=== PATIENT | male | born 1955 | race Caucasian/White ===

== ENCOUNTER → 2016-05-09 | Outpatient (CLI) | payer OTHER ==
--- NOTE | 2016-05-09 15:15 | CT ---
EXAMINATION TYPE: CT angio chest DATE OF EXAM: 05/09/2016 2:56 PM COMPARISON: NONE HISTORY: Patient has no complaints at time of study. Preoperative CABG planning. Coronary artery dis ease per order. CT DLP: 462.6 mGycm Automated exposure control for dose reduction was used. CONTRAST: CTA scan of the thorax is performed with IV Contrast, patient injected with 100 mL of Omnipaque 350. 3D reconstructed images are created on an independent workstation and reviewed. MIP images are also c reated on CT scanner and reviewed. FINDINGS: LUNGS: An elevated left hemidiaphragm is present. There is left basilar atelectasis and/or scarring. There is mild underlying emphysematous change most pronounced in lung apices. Right lung is clear. No pleural effusion or pneumothorax is present bilaterally. Tracheobronchial tree is patent. MEDIASTINUM: There is satisfactory enhancement of the pulmonary artery and its branches, there is no CT evidence for pulmonary embolism. There are no greater than 1 cm hilar or mediastinal lymph nodes. No pericardial effusion is seen. Cardiomegaly is present. There is moderate left atrial and left v entricular dilatation. Post CABG changes with mediastinal clips and sternal wires is identified. Ther e is BENITEZ harvesting. Bypass from aorta to first diagonal branch is noted. There is moderate mixed pl aque in the thoracic aorta. No linear hypodensity to suggest dissection is seen. No greater than 3.5 cm aneurysm is identified. OTHER: There is moderate multilevel spurring in the spine. Liver is low dense suggesting fatty infil tration. Slight nodular thickening to left adrenal gland may reflect hyperplasia. IMPRESSION: 1. MILD EMPHYSEMATOUS CHANGE WITHOUT ACUTE PULMONARY PROCESS. 2. NO THORACIC AORTIC ANEURYSM OR DISSECTION. NO PULMONARY EMBOLISM. CARDIOMEGALY WITH MODERATE LEFT ATRIAL AND LEFT VENTRICULAR DILATATION IS NOTED.
== END | disposition home or self-care (01) ==
LOC: RADCTMAIN 14:17
PROVIDERS: ATTEND Thoracic Surgery (Cardiothoracic Vascular Surgery)
DX: J43.9 Emphysema, unspecified (principal); I51.7 Cardiomegaly; I25.10 Atherosclerotic heart disease of native coronary artery without angina pectoris
CPT/HCPCS: 71275; Q9967

== ENCOUNTER → 2016-05-09 | Outpatient (CLI) | payer OTHER ==
--- NOTE | 2016-05-09 14:43 | US ---
EXAMINATION TYPE: US carotid duplex BILAT DATE OF EXAM: 05/09/2016 1:19 PM COMPARISON: NONE CLINICAL HISTORY: US. Pre op cardiac surgery, bilateral endarterectomy 4 years ago EXAM MEASUREMENTS: RIGHT: Peak Systolic Velocity (PSV) cm/sec ----- Right CCA: 43.2 ----- Right ICA: 63.8 ----- Right ECA: 270.2 ICA/CCA ratio: 1.5 RIGHT: End Diastole cm/sec ----- Right CCA: 7.6 ----- Right ICA: 21.9 ----- Right ECA: 25.8 LEFT: Peak Systolic Velocity (PSV) cm/sec ----- Left CCA: 120.1 ----- Left ICA: 96.8 ----- Left ECA: 177.3 ICA/CCA ratio: 0.8 LEFT: End Diastole cm/sec ----- Left CCA: 23.5 ----- Left ICA: 33.8 ----- Left ECA: 23.1 VERTEBRALS (direction of flow): Right Vertebral: Antegrade Left Vertebral: Antegrade Impression: Mild to moderate plaque noted bilateral bifurcations. Increased velocities bilateral ECA' s, greater on right Criteria for Assigning % of Stenosis / Diameter reduction (Estimation based on the indirect measurements of the internal carotid artery velocities (ICA PSV). 1. Normal (no stenosis)=ICA PSV < 125 cm/s: ratio < 2.0: ICA EDV<40 cm/s. 2. Less than 50% stenosis=ICA PSV < 125 cm/s: ratio < 2.0: ICA EDV<40 cm/s. 3. 50 to 69% stenosis=ICA PSV of 125 to 230 cm/s: ration 2.0 ? 4.0: ICA EDV 40-100 cm/s. 4. Greater than 70% stenosis to near occlusion= ICA PSV > 230 cm/s: ratio > 4.0: ICA EDV > 100 cm/s. 5. Near occlusion= ICA PSV velocities may be low or undetectable: variable ratio and ICA EDV. 6. Total occlusion=unable to detect flow.
--- NOTE | 2016-05-11 11:02 | P.VSCSTY ---
Greater Saphenous Vein Mapping This is bilateral lower extremity greater saphenous vein mapping. Date of service 05/09/2016 Vein quality and ultrasound appearance: left leg has been harvested. Vein size groin right 8.8 x 9.6 groin left [ ] High thigh right 5.7 x 7.5 high thigh left [ ] Mid thigh right 5.0 x 6.4 mid thigh left [ ] Above-knee right 5.1 x 5.8 above- knee left [ ] Below knee right 4.5 x 5.2 below-knee left [] Mid calf right 3.3 x 4.3 mid calf left [] Ankle right to 0.4 x 2.8 ankle left [] Impression usable right leg greater saphenous vein. Become somewhat large as 1 gets towards the upper thigh..
--- NOTE | 2016-05-11 11:05 | P.ARTDOP ---
Arterial Doppler Bilateral radial artery studies: Doppler assessment shows no significant right to left or segmental pressure gradients. Digital plethysmography shows no significant pressure change with radial artery compression. Ultrasound imaging shows the right radial to range from 2 x 2.5-2.5 x 2.7 mm, left radial ranges between 2.8 x 3.6-3.3 x 3.4 mm Impression: Usable bilateral radial arteries. Size on the left is excellent and quite acceptable on the right
--- NOTE | 2016-05-13 16:47 | PN ---
DATE OF SERVICE: May 13, 2016. Patient is a 60-year-old gentleman who will be 61 tomorrow. He was seen by me in the office on April 28 for evaluation of recurrent coronary artery disease status post coronary artery bypass surgery [address] Crowder. He was sent for some preoperative work-up, which included an ultrasound of the carotids, which was essentially normal, and included CT of the chest which demonstrates a patent saphenous vein to the high lateral wall which is not evident on the cardiac catheterization, demonstrates good healing of the midline sternotomy with no evidence of severe underlying adhesive disease and demonstrates mild emphysema of the lungs. The patient has had a previous plication of the diaphragm but there is no obvious sequelae of this operation evident on the CT scan. The left diaphragm is slightly higher than the right. There is some degree of volume loss on the left chest. The patient underwent saphenous vein mapping showing patent saphenous vein on the right side, somewhat large in the thigh and small at the ankle but does appear to be usable. The patient underwent radial artery mapping, which shows patent radial arteries bilaterally which both have evidence of good collateral flow through the ulna, the left radial is larger and is a very appropriate conduit. The right would also be usable. I discussed with the patient that I feel very confident in offering him redo coronary bypass surgery as requested by Dr. Oneyda Emmanuel and discussed with him that we will use the left radial artery and some of the vein from the right lower extremity. Discussed with him that this is a redo sternotomy and the inherent risks associated with that. That I felt confident that we would be able to successfully perform the procedure with a minimum of risk. The patient would like to proceed. We will schedule him a week from Monday on May 23. This was agreeable with the patient and his . All of their questions were answered to the best of my ability and then left the office in good spirits ready to proceed with surgery next week. BART
== END | disposition home or self-care (01) ==
LOC: RADUSWWP 12:01
PROVIDERS: ATTEND Thoracic Surgery (Cardiothoracic Vascular Surgery)
DX: Z01.818 Encounter for other preprocedural examination (principal); I65.23 Occlusion and stenosis of bilateral carotid arteries; I25.10 Atherosclerotic heart disease of native coronary artery without angina pectoris
CPT/HCPCS: 93880; 93923; 93930; 93970

== ENCOUNTER → 2016-05-17 | Outpatient (CLI) | payer OTHER ==
--- NOTE | 2016-05-25 14:40 | P.ARTDOP ---
Arterial Doppler LOWER EXTREMITY ARTERIAL DOPPLER: DATE OF SERVICE: 05/17/2016 Reason for study: Pre-CABG. Doppler waveforms: Multiphasic bilaterally throughout. Pulse volume recording: Normal configuration. Pressure gradients: None. Ankle-brachial indices: Greater than 1 bilaterally. Toe pressures: 89 on the right, 84 on the left Impression: Normal study.
== END | disposition home or self-care (01) ==
LOC: RADUSWWP 13:39
PROVIDERS: ATTEND Thoracic Surgery (Cardiothoracic Vascular Surgery)
DX: Z01.810 Encounter for preprocedural cardiovascular examination (principal)
CPT/HCPCS: 93923

== ENCOUNTER → 2016-05-17 | Outpatient (CLI) | payer OTHER ==
[2016-05-17 12:36] LABS: EKG EKG PERFORMED
[2016-05-17 13:25] LABS: Appearance,Urine Clear (Clear); Bilirubin,Urine Negative (Negative); Glucose,Urine (UA) Negative (Negative); Ketones,Urine Negative (Negative); Leukocyte Esterase,Urine Negative (Negative); Mucus,Urine Rare /hpf; Nitrite,Urine Negative (Negative); Particle Count 859; Protein,Urine Negative (Negative); RBC,Urine 5 /hpf (0-5); Specific Gravity,Urine 1.012 (1.001-1.035); UA Billing (MACRO vs. MICRO) MICRO; Uric Acid Crystals,Urine Occasional /hpf; Urobilinogen,Urine <2.0 mg/dL (<2.0); WBC,Urine 2 /hpf (0-5)
[2016-05-17 14:08] LABS: CH 31.3; CHCM 34.8; HCT 42.3 % (39.0-53.0); HDW 3.49; HGB 14.8 gm/dL (13.0-17.5); MCH 31.6 pg (25.0-35.0); MCHC 34.9 g/dL (31.0-37.0); MCV 90.6 fL (80.0-100.0); Mean Platelet Volume 7.5; Poikilocytosis Slight; RBC 4.67 m/uL (4.30-5.90); RDW 14.7 % (11.5-15.5); WBC 7.1 k/uL (3.8-10.6)
[2016-05-17 14:09] LABS: Partial Thromboplastin Time 22.4 sec (22.0-30.0); Prothrombin Time 10.5 sec (9.0-12.0)
[2016-05-17 14:18] LABS: ALT 69 U/L (21-72); AST 41 U/L (17-59); Alkaline Phosphatase 71 U/L (38-126); Anion Gap 14 mmol/L; Blood Urea Nitrogen 22 mg/dL (9-20); Calcium 9.8 mg/dL (8.4-10.2); Carbon Dioxide 28 mmol/L (22-30); Chloride 101 mmol/L (98-107); Cholesterol 191 mg/dL (<200); Glucose 165 mg/dL (74-99); HDL Cholesterol 34 mg/dL (40-60); Magnesium 1.9 mg/dL (1.6-2.3); Non-African American GFR(MDRD) >60 (>60 ml/min/1.73 sqM); Potassium 4.8 mmol/L (3.5-5.1); Sodium 143 mmol/L (137-145); Total Bilirubin 0.8 mg/dL (0.2-1.3); Triglycerides 239 mg/dL (<150)
--- NOTE | 2016-05-17 14:46 | XR ---
EXAMINATION TYPE: XR chest 2V DATE OF EXAM: 05/17/2016 2:42 PM COMPARISON: 11/15/2012 HISTORY: Shortness of breath TECHNIQUE: Frontal and lateral views of the chest are obtained. FINDINGS: Scattered senescent parenchymal changes noted. No evidence for infiltrate. No evidence for atelectasis. Heart size is stable. Mediastinal structures are stable and grossly unremarkable. No evidence for hilar prominence. Degenerative changes dorsal spine. IMPRESSION: 1. No evidence for acute pulmonary disease.
[2016-05-17 14:47] LABS: Hepatitis B Surface Ag Index 0.06
[2016-05-17 14:53] LABS: Hepatitis B Core IgM Index 0.03
[2016-05-17 15:05] LABS: Hepatitis C Virus IgG Index 0.04
[2016-05-17 15:06] LABS: Hepatitis C Virus IgG Ab Negative (Negative)
== END | disposition home or self-care (01) ==
LOC: LABPAT 12:21
PROVIDERS: ATTEND Thoracic Surgery (Cardiothoracic Vascular Surgery)
DX: Z01.818 Encounter for other preprocedural examination (principal); Z01.810 Encounter for preprocedural cardiovascular examination
CPT/HCPCS: 71020; 80053; 80061; 80074; 81001; 83036; 83735; 83880; 84443; 84484; 85027; 85610; 85730; 87070; 87086; 93005; 94150

== ENCOUNTER → 2016-05-31 | Outpatient (CLI) | payer OTHER ==
--- NOTE | 2016-05-31 10:08 | XR ---
EXAMINATION TYPE: XR chest 2V DATE OF EXAM: 05/31/2016 10:01 AM COMPARISON: 05/17/2016 INDICATION: Presurgical evaluation TECHNIQUE: Frontal and lateral views of the chest are obtained. FINDINGS: The heart size is normal. The pulmonary vasculature is normal. Linear opacities at the left base. Correlate for atelectasis. IMPRESSION: 1. Mild improving plate atelectasis left base
[2016-05-31 10:19] LABS: CH 31.3; CHCM 34.7; HCT 41.7 % (39.0-53.0); HDW 3.46; HGB 14.2 gm/dL (13.0-17.5); MCH 30.9 pg (25.0-35.0); Mean Platelet Volume 8.1; Poikilocytosis Slight; RBC 4.58 m/uL (4.30-5.90); RDW 14.8 % (11.5-15.5); WBC 7.4 k/uL (3.8-10.6)
[2016-05-31 10:39] LABS: Partial Thromboplastin Time 22.1 sec (22.0-30.0)
[2016-05-31 10:47] LABS: ALT 65 U/L (21-72); AST 36 U/L (17-59); Alkaline Phosphatase 89 U/L (38-126); Anion Gap 14 mmol/L; Blood Urea Nitrogen 19 mg/dL (9-20); Calcium 9.4 mg/dL (8.4-10.2); Carbon Dioxide 28 mmol/L (22-30); Chloride 101 mmol/L (98-107); Cholesterol 188 mg/dL (<200); Glucose 170 mg/dL (74-99); HDL Cholesterol 35 mg/dL (40-60); Magnesium 1.9 mg/dL (1.6-2.3); Non-African American GFR(MDRD) >60 (>60 ml/min/1.73 sqM); Potassium 4.8 mmol/L (3.5-5.1); Sodium 143 mmol/L (137-145); Total Bilirubin 0.7 mg/dL (0.2-1.3); Total Protein 8.1 g/dL (6.3-8.2); Triglycerides 321 mg/dL (<150)
[2016-05-31 11:04] LABS: Appearance,Urine Cloudy (Clear); Bilirubin,Urine Negative (Negative); Glucose,Urine (UA) Negative (Negative); Hepatitis B Surface Ag Index 0.08; Ketones,Urine Negative (Negative); Leukocyte Esterase,Urine Negative (Negative); Mucus,Urine Rare /hpf; Nitrite,Urine Negative (Negative); PH, Urine 5.5 (5.0-8.0); Particle Count 4937; Protein,Urine Trace (Negative); RBC,Urine 88 /hpf (0-5); Specific Gravity,Urine 1.016 (1.001-1.035); UA Billing (MACRO vs. MICRO) MICRO; Urobilinogen,Urine <2.0 mg/dL (<2.0); WBC,Urine 6 /hpf (0-5)
[2016-05-31 11:10] LABS: Hepatitis B Core IgM Index 0.05
[2016-05-31 11:21] LABS: Hepatitis C Virus IgG Index 0.05
[2016-05-31 11:22] LABS: Hepatitis C Virus IgG Ab Negative (Negative)
[2016-05-31 12:40] LABS: Hemoglobin A1C 6.1 % (4.2-6.1)
== END | disposition home or self-care (01) ==
LOC: LABPAT 09:16
PROVIDERS: ATTEND Thoracic Surgery (Cardiothoracic Vascular Surgery)
DX: Z01.810 Encounter for preprocedural cardiovascular examination (principal); J98.11 Atelectasis
CPT/HCPCS: 71020; 80053; 80061; 80074; 81001; 83036; 83735; 83880; 84443; 84484; 85027; 85610; 85730; 87086

== ENCOUNTER 2016-06-06 05:46 | Inpatient (IN) | payer OTHER ==
--- NOTE | 2016-05-31 09:41 | P.PN ---
Progress Note - Text Walk test completed: 1) 2.37 seconds,2) 2.86 seconds,3) 3.08 seconds.
[~2016-06-06 05:46] MED LIST: ALBUMIN HUMAN 25% 50 ML IV ONE; ALBUMIN HUMAN 5% 500 ML IVPB ONE; AMINOCAPROIC ACID 250 MG/ML 20 ML VIAL IV ONE; AMINOCAPROIC ACID 5,000 MG in DEXTROSE 5% IN WATER 50 ML IV ONE; ASPIRIN 325 MG TAB PO ONE; ATORVASTATIN 10 MG TAB PO ONE; CALCIUM CHLORIDE 100 MG/ML 10 ML SYRINGE IV ONE; CARDIOPLEGIC SOLN (K+ 16 MEQ/L 1,000 ML with SODIUM BICARB (1 MEQ/ML) 20 ML, LIDOCAINE ... PERFUSION ONE; CHLORHEXIDINE GLUCONATE 15 ML CUP MUCOUS MEM ONE; CLEVIDIPINE BUTYRATE 25 MG in EMPTY BAG 1 BAG IV ONE; HEPARIN SODIUM 1,000 UNIT/ML VIAL IV ONE; HEPARIN SODIUM,PORCINE 5,000 UNIT in SODIUM CHLORIDE 0.9% 500 ML IV ONE; INSULIN REGULAR 100 UNIT in SODIUM CHLORIDE 0.9% 100 ML IV ONE; LACTATED RINGERS 1,000 ML IV ONE; MAGNESIUM SULFATE MG 500 MG/ML VIAL IV ONE; MANNITOL 25% 12.5 GM/50 ML VIAL IV ONE; METOPROLOL TARTRATE 12.5 MG TAB PO ONE; NITROGLYCERIN-D5W PMX 25 MG/250 ML BTL IV ONE; NITROGLYCERIN-D5W PMX 50 MG in DEXTROSE/WATER 1 250ML.BAG IV ONE; NOREPINEPHRINE 4 MG in SODIUM CHLORIDE 0.9% 250 ML IV ONE; PAPAVERINE 360 MG in SODIUM CHLORIDE 0.9% 90 ML IV ONE; PHENYLEPHRINE 40 MG in SODIUM CHLORIDE 0.9% 250 ML IV ONE; PHENYLEPHRINE-0.9% NACL SYG 1 MG/10 ML SYRINGE IV ONE; PROPOFOL 50 ML IV ONE; PROTAMINE SULFATE 10 MG/ML 25 ML VIAL IV ONE; PROTAMINE SULFATE 250 MG in EMPTY BAG 1 BAG IV ONE; SODIUM BICARB 8.4% 50 ML SYR (1 MEQ/ML) IV ONE; SODIUM CHLORIDE 0.9% 1,000 ML IV ONE; ceFAZolin 1,000 MG in SODIUM CHLORIDE 0.9% IRRIGATIO 1,000 ML IRRIGATION ONE; ceFAZolin 2,000 MG in SODIUM CHLORIDE 0.9% 30 ML IVPB ONE
[2016-06-06] MEDS ORDERED: fentaNYL (PF) 50 MCG/ML 2 ML AMP ONE (08:14)
[2016-06-06] MEDS ORDERED: PROPOFOL 10 MG/ML 20 ML VIAL IV ONE (08:14)
[2016-06-06] MEDS ORDERED: MORPHINE SULFATE 10 MG/ML SYRINGE ONE (08:14)
[2016-06-06] MEDS ORDERED: ePHEDrine 50 MG/ML 1 ML AMP ONE (08:14)
[2016-06-06] MEDS ORDERED: fentaNYL (PF) 50 MCG/ML 50 ML VIAL ONE (08:14)
[2016-06-06] MEDS ORDERED: HEPARIN SODIUM,PORCINE 10,000 UNIT/ML 1 ML VIAL ONE (08:14)
[2016-06-06] MEDS ORDERED: PROTAMINE SULFATE 10 MG/ML 25 ML VIAL IV ONE (08:14)
[2016-06-06] MEDS ORDERED: CALCIUM CHLORIDE 100 MG/ML 10 ML SYRINGE ONE (08:14)
[2016-06-06] MEDS ORDERED: SODIUM CHLORIDE 0.9% IRRIG 1,000 ML BTL IRRIGATION ONE (08:14)
[2016-06-06] MEDS ORDERED: HEPARIN SODIUM 1,000 UNIT/ML VIAL ONE (08:14)
[2016-06-06] MEDS ORDERED: PHENYLEPHRINE-0.9% NACL SYG 1 MG/10 ML SYRINGE ONE (08:14)
[2016-06-06] MEDS ORDERED: VECURONIUM 10 MG VIAL IV ONE (08:14)
[2016-06-06] MEDS ORDERED: ELECTROLYTE-R (PH 7.4) 1,000 ML IV.SOLN IV ONE (08:14)
[2016-06-06] MEDS ORDERED: SUCCINYLCHOLINE CHLORIDE 100 MG/5 ML SYR IV ONE (08:14)
[2016-06-06] MEDS ORDERED: MIDAZOLAM 2 MG/2 ML VIAL ONE (08:14)
[2016-06-06] MEDS ORDERED: DILTIAZEM 125 MG in SODIUM CHLORIDE 0.9% 100 ML IV SCH (09:00)
[2016-06-06 09:18] LABS: Glucose,Whole Blood 116 mg/dL (75-99)
[2016-06-06 11:20] LABS: Glucose,Whole Blood 179 mg/dL (75-99)
[2016-06-06 12:04] LABS: Glucose,Whole Blood 172 mg/dL (75-99)
[2016-06-06 12:50] LABS: Glucose,Whole Blood 183 mg/dL (75-99)
[2016-06-06 13:58] LABS: Glucose,Whole Blood 194 mg/dL (75-99)
[2016-06-06] MEDS ORDERED: BENZOCAINE/MENTHOL LOZENG 1 EACH LOZENGE MUCOUS MEM PRN (14:14)
[2016-06-06] MEDS ORDERED: Magnesium Replacement Protocol 1 EACH MISC MISCELLANE PRN (14:14)
[2016-06-06] MEDS ORDERED: CLEVIDIPINE BUTYRATE 25 MG in EMPTY BAG 1 BAG IV SCH (14:14)
[2016-06-06] MEDS ORDERED: NOREPINEPHRINE 4 MG in SODIUM CHLORIDE 0.9% 250 ML IV SCH (14:14)
[2016-06-06] MEDS ORDERED: CALCIUM GLUCONATE 2,000 MG in SODIUM CHLORIDE 0.9% 100 ML IVPB ONE (14:14)
[2016-06-06] MEDS ORDERED: ONDANSETRON 4 MG/2 ML VIAL IVP PRN (14:14)
[2016-06-06] MEDS ORDERED: NITROGLYCERIN-D5W PMX 50 MG in DEXTROSE/WATER 1 250ML.BAG IV SCH (14:14)
[2016-06-06] MEDS ORDERED: Potassium Replacement Protocol 1 EACH MISC MISCELLANE PRN (14:14)
[2016-06-06] MEDS ORDERED: Phosphorus Replacement Protoco 1 EACH MISC MISCELLANE PRN (14:14)
--- NOTE | 2016-06-06 15:02 | P.OP ---
Date of Procedure: 06/06/16 Preoperative Diagnosis: Coronary artery disease, both the lives and autologous grafts Postoperative Diagnosis: Coronary artery disease, both autologous and [place] grafts. Procedure(s) Performed: Redo coronary artery bypass grafting 2 with left radial artery harvest and left radial artery to obtuse marginal coronary artery and endovascular vein harvest from the left greater saphenous vein with bypass of the posterior lateral branch Anesthesia: KARTHIKEYAN Surgeon: Linus Harmon Estimated Blood Loss (ml): 200 IV fluids (ml): 2,000 Urine output (ml): 500 Pathology: none sent (Old saphenous vein graft) Condition: stable Disposition: ICU Indications for Procedure: Patient is a 61-year-old male with previous bypass grafting 3-1/2 years ago presented with anginal symptomatology. Catheterization demonstrated occluded saphenous vein grafts with a patent BENITEZ to the LAD. The right coronary artery was without significant stenosis. There was tight ostial stenosis in both the obtuse marginal which was a large vessel and the distal circumflex the circumflex coronary artery which was a smaller vessel. Redo coronary bypass grafting was recommended by Dr. Melo and Dr. YG Emmanuel. Elective surgery was scheduled. Operative Findings: There were diffuse dense adhesions present within the pericardial space. The vein graft to the right coronary artery was small and without a lumen and looked like it had never flowed. The vein graft to the obtuse marginal was large and appeared to have some flow within it. The left ventricle itself was markedly dilated with a ejection fraction of around 35%. Good conduits were obtained. Grafting proceeded well. Description of Procedure: Patient was brought to the operating room placed supine on the operating table and anesthetized and intubated. The anterior torso lower extremities and left upper extremity were sterilely prepped and draped. A left femoral arterial line was placed as anesthesia been unable to place a right radial or brachial line. Simultaneously, endovascular vein harvest was performed from the left thigh using the endovascular harvest techniques the left greater saphenous was harvested from knee to groin. The left radial artery was harvested endoscopically from the left forearm. Once this harvest was completed the arm was dressed and tucked at the side. The old sternal excision was excised and the incision carried down to the sternum. Total wires were identified and cut. The redo saw was used to divide the sternum in the midline. Following this the sternal wires were removed. Careful dissection was carried underneath the leaves of the sternum first on the right side. Right pleural space was opened widely and was free of adhesions. Owing this we very carefully divided the heart from the sternum on the left side. The adhesions here were very dense and difficult. Left pleural space was entered but was fairly adherent. The majority of the pleural adhesions were not taken down. Rule tract retractor was used to expose the left side of the chest little better. He old RUPA graft was identified and dissected out. We dissected as far laterally as we could using the Rultract then placed a standard sternal retractor. We were able to dissect out the inferior wall of the heart the right atrium and the aorta including identifying 2 old vein grafts one of which appeared to be patent to the left and the other appeared to be chronically occluded to the right side. In trying to dissected out the left ventricle laterally, we had problems as the patient really did not tolerate his heart being lifted at all. It was decided the only way we would complete the case would be off pump heparinized the patient and cannulated for cardiopulmonary bypass. An 8 mm soft flow cannula was placed in the distal ascending aorta superior to the previous aortic cannulation site. Two-stage venous cannula was placed through the right atrium into the inferior vena cava. Antegrade and retro-grade cardioplegia lines were placed in standard fashion. Conduits were inspected and noted to be excellent. At this point we went on bypass. With the heart still beating we completed the dissection of the left ventricle posteriorly and inferiorly. We now identified the first obtuse marginal which had a vein graft running to it this was a 2 mm vessel of good quality and it was grafted beyond the previous anastomosis. We also identified the terminal circumflex on the posterior lateral wall of the heart. A 1.25 mm vessel of good quality. Was decided to put the left radial artery to the obtuse marginal and the saphenous vein graft to the posterior lateral the aorta was now crossclamped and the heart arrested with cold crystalloid antegrade cardioplegia. The obtuse marginal was exposed and opened easily accepted a 2 mm probe distally. After radial artery was anastomosed end-to-side fashion with running 7-0 Prolene. Ablation the anastomosis it was probed distally and noted to be patent. She was tied with good result and hemostasis and it was flushed with cold blood cardioplegia which fluid flowed very easily without any leaks. The radial artery was of more than adequate length to reach the ascending aorta. Next we exposed the inferior wall of the heart and the posterior lateral branch. This was opened and the saphenous vein anastomosed in end-to-side fashion with running 7-0 Prolene. It accepted a 1 mm probe both proximally and distally both before and after the anastomosis. On completion the anastomosis was flushed with cold blood cardioplegia. This flowed well although not as exuberantly as the first graft.'s was felt to do be due to outflow limitations due to the size of the vessel. The vein graft was of more than adequate length to reach the ascending aorta was cut to appropriate length. A dose of retrograde cardioplegia was now given. Small aortotomy was made in the ascending aorta just above the previous obtuse marginal graft and this was enlarged with a 40 punch. Proximal anastomosis for the radial artery was placed here with running 6-0 Prolene suture. Was now fairly limited space on the ascending aorta and it was decided to take off the old vein graft to the right. This was done in the proximal portion of the vein graft was sent for pathology a clip was applied to the vein graft for distally. The resultant hole in the ascending aorta was used for the proximal anastomosis of the right coronary graft. This was performed with running 6-0 Prolene suture. Completion occlusion of the proximal anastomosis a she was placed in Trendelenburg both of the new grafts were occluded with bulldog clamps and the bulldog clamp was removed from the left internal mammary artery graft. Cross-clamp was now removed, the new grafts were de-aired with needle holes. Atrial and ventricular pacing wires were placed and the patient was paced. The ventricle recovered slowly. Was decided to lobe with some Primacor and starts we fed through consulted in better heart function on the MARY. Good hemostasis was noted throughout. Retrograde cardioplegia line was removed. Heart was de-aired under MARY guidance and the antegrade cardioplegia line was removed. After appropriate rewarming the patient was weaned from cardiopulmonary bypass. Heparin was reversed with protamine and the patient was decannulated in standard fashion. The pump was returned to the patient. Patient remained hemodynamically stable. Hemostasis was obtained throughout. Bilateral pleural spaces were drained with 32-Mong[place]ian chest tubes in the mediastinum with a 36-[place]ian chest tube. Sternum was then closed with 8 sternal wires. We did irrigate the chest with antibiotic solution prior to closure. The sternum closed, the fascia was closed with 0 Ethibond the subcutaneous subcu layers with layers of Vicryl suture. Dry sterile dressings were applied and the patient was transferred to ICU in stable condition.
[2016-06-06 15:20] LABS: Glucose,Whole Blood 164 mg/dL (75-99)
[2016-06-06 15:39] LABS: Basophils # (A) 0.1 k/uL (0-0.2); Basophils % (A) 0 %; CH 31.4; CHCM 34.9; Eosinophils # (A) 0.1 k/uL (0-0.7); Eosinophils % (A) 1 %; HCT 35.2 % (39.0-53.0); HDW 3.57; HGB 11.9 gm/dL (13.0-17.5); Luc # (Auto) 0.32; Luc % (Auto) 3; Lymphocytes # (A) 1.5 k/uL (1.0-4.8); Lymphocytes % (A) 13 %; MCH 30.6 pg (25.0-35.0); MCHC 33.8 g/dL (31.0-37.0); MCV 90.6 fL (80.0-100.0); Mean Platelet Volume 7.2; Monocytes % (A) 8 %; Neutrophils # (A) 9.3 k/uL (1.3-7.7); Neutrophils % (A) 76 %; Poikilocytosis Slight; RBC 3.89 m/uL (4.30-5.90); RDW 14.9 % (11.5-15.5); WBC 12.2 k/uL (3.8-10.6); WBC (Perox) 13.35
[2016-06-06 15:45] LABS: Ionized Calcium 5.2 mg/dL (4.5-5.3)
--- NOTE | 2016-06-06 15:49 | XR ---
EXAMINATION TYPE: XR chest 1V portable DATE OF EXAM: 06/06/2016 3:43 PM HISTORY: Post Op CABG COMPARISON: 05/31/2016 TECHNIQUE: Single view of the chest is submitted. FINDINGS: Endotracheal tube, NG tube, SG catheter, mediastianal drains and chest tubes are appropriately placed . Post operative changes of CABG. No sizeable pneumothorax. Scattered Pleural-parencymal opacities may reflect atelectasis. The heart is mildly enlarged. IMPRESSION: 1. Post operative changes of CABG.
[2016-06-06 15:55] LABS: ALT 54 U/L (21-72); AST 45 U/L (17-59); Alkaline Phosphatase 52 U/L (38-126); Anion Gap 9 mmol/L; Blood Urea Nitrogen 19 mg/dL (9-20); Calcium 8.8 mg/dL (8.4-10.2); Carbon Dioxide 24 mmol/L (22-30); Chloride 106 mmol/L (98-107); Glucose 167 mg/dL (74-99); INR 1.1 (<1.1); Magnesium 2.8 mg/dL (1.6-2.3); Non-African American GFR(MDRD) >60 (>60 ml/min/1.73 sqM); Potassium 4.6 mmol/L (3.5-5.1); Prothrombin Time 11.1 sec (9.0-12.0); Sodium 139 mmol/L (137-145); Total Protein 5.5 g/dL (6.3-8.2)
[2016-06-06 15:56] LABS: Glucose,Whole Blood 137 mg/dL (75-99)
[2016-06-06 15:58] LABS: Partial Thromboplastin Time 20.7 sec (22.0-30.0)
[2016-06-06 15:59] LABS: ABG Base Excess -2.8 mmol/L; ABG HCO3 23 mmol/L (21-25); ABG PCO2 49 mmHg (35-45); ABG PH 7.29 (7.35-7.45); ABG PO2 92 mmHg (83-108); ABG TCO2 24 mmol/L (19-24)
[2016-06-06] MEDS: LACTATED RINGERS 1,000 ML IV SCH (16:12)
[2016-06-06] MEDS: ceFAZolin 2 GM in SODIUM CHLORIDE 0.9% 100 ML IVPB SCH ×2 (16:13→23:45)
[2016-06-06] MEDS: IPRATROPIUM-ALBUTEROL 3 ML NEB INHALATION SCH ×3 (16:36→23:52)
[2016-06-06 16:54] LABS: Glucose,Whole Blood 173 mg/dL (75-99)
[2016-06-06] MEDS: MILRINONE-D5W PMX 20 MG in DEXTROSE/WATER 1 100ML.BAG IV SCH (17:14)
[2016-06-06] MEDS: DILTIAZEM 125 MG in SODIUM CHLORIDE 0.9% 100 ML IV SCH (17:38)
[2016-06-06] MEDS: ACETAMINOPHEN IV (For NPO) 1,000 MG in EMPTY BAG 1 BAG IVPB SCH ×2 (18:20→23:45)
[2016-06-06 18:28] LABS: Glucose,Whole Blood 158 mg/dL (75-99)
--- NOTE | 2016-06-06 18:40 | P.CNPUL ---
History of Present Illness Consult date: 06/06/16 Requesting physician: Linus Harmon Reason for consult: other (Status post CABG) Chief complaint: Status post CABG History of present illness: This is a 61-year-old white male who presented recently with intermittent episodes of angina, patient had a previous CABG complicated with left hemidiaphragm paralysis back in 2012, this required plication at [facility]. Patient had recent cardiac catheterization, and Dr. Harmon was consulted for his abnormal cardiac cath. Today the patient underwent elective redo coronary artery bypass grafting 2 with left radial artery harvest and left radial artery to obtuse marginal coronary artery and endovascular vein harvest from the left greater saphenous vein with bypass of the posterior lateral branch postoperatively, patient was on mechanical ventilation, and I was asked to see him on consultation. Patient remains presently on mechanical ventilation, and I placed the patient on assist control mode after reviewing his ABG, I also reviewed his chest x-ray which was felt to be unremarkable except for some postoperative changes. Review of Systems ROS unobtainable: due to endotracheal tube Past Medical History Past Medical History: Cancer, Chest Pain / Angina, COPD, CVA/TIA, Hyperlipidemia , Hypertension, Myocardial Infarction ([place]), Osteoarthritis (OA) Additional Past Medical History / Comment(s): generalized fatigue, unable to walk distance,SOB, CVA-several yrs. 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 ago Last Myocardial Infarction Date:: 2012 History of Any Multi-Drug Resistant Organisms: None Reported Past Surgical History: Coronary Bypass/CABG, Heart Catheterization Additional Past Surgical History / Comment(s): earlene. carotid endarterectomy, triple bypass 2012, diaphragm repair post CABG, fem-fem. bypass, cancer removed from kidney Past Anesthesia/Blood Transfusion Reactions: No Reported Reaction Past Psychological History: Anxiety, Bipolar Smoking Status: Former smoker Past Alcohol Use History: Occasional Additional Past Alcohol Use History / Comment(s): quit smoking 2005, smoked for 40 yrs. 3ppd Past Drug Use History: None Reported - Past Family History Mother Family Medical History: Cancer Medications and Allergies Home Medications Medication Instructions Recorded Confirmed Type Aspirin 81 mg PO DAILY 04/04/16 06/06/16 History Atorvastatin [Lipitor] 80 mg PO HS 04/04/16 06/06/16 History Budesonide/Formoterol Fumarate 2 puff INHALATION RT-BID PRN 04/04/16 06/06/16 History [Symbicort 160-4.5 Mcg Inhaler] Carvedilol [Coreg] 12.5 mg PO BID 04/04/16 06/06/16 History Clopidogrel [Plavix] 75 mg PO DAILY 04/04/16 06/06/16 History Losartan Potassium [Cozaar] 100 mg PO DAILY 04/04/16 06/06/16 History Nitroglycerin Sl Tabs [Nitrostat] 0.4 mg SUBLINGUAL Q5M PRN 04/04/16 06/06/16 History Sertraline HCl [Zoloft] 100 mg PO DAILY 04/04/16 06/06/16 History amLODIPine BESYLATE [Norvasc] 10 mg PO DAILY 04/04/16 06/06/16 History Mupirocin 2% Nasal Oint [Bactroban 1 applic NASAL BID 06/03/16 06/06/16 History 2% Nasal Oint] Allergies Allergy/AdvReac Type Severity Reaction Status Date / Time No Known Allergies Allergy Unverified 06/06/16 06:08 Physical Exam Vitals: Vital Signs Temp Pulse Pulse Resp BP BP BP 06/06/16 17:00 97.9 F 79 20 99/54 06/06/16 16:50 79 20 99/54 06/06/16 16:40 82 20 99/54 06/06/16 16:36 80 06/06/16 16:30 85 20 99/54 06/06/16 16:20 79 20 99/54 06/06/16 16:10 91 20 99/54 06/06/16 16:00 80 81/48 06/06/16 15:50 96.8 F L 85 20 06/06/16 15:40 87 06/06/16 15:30 91 136/67 06/06/16 15:20 80 108/83 06/06/16 15:14 97.3 F L 20 90/61 06/06/16 15:10 80 06/06/16 15:09 79 06/06/16 14:14 06/06/16 05:57 97.6 F 85 18 188/81 BP Pulse Ox 06/06/16 17:00 96 06/06/16 16:50 97 06/06/16 16:40 98 06/06/16 16:36 06/06/16 16:30 98 06/06/16 16:20 97 06/06/16 16:10 97 06/06/16 16:00 96 06/06/16 15:50 96 06/06/16 15:40 06/06/16 15:30 95 06/06/16 15:20 94 L 06/06/16 15:14 97 06/06/16 15:10 06/06/16 15:09 06/06/16 14:14 96 06/06/16 05:57 185/79 90 L Intake and Output 06/06/16 06/06/16 06/06/16 06:59 14:59 22:59 Intake Total 1326 Output Total 1900 899 Balance -1900 427 Intake: IV 1326 Albumin 1000 CO/CI 150 Diltiazem 125 mg In 40 Sodium Chloride 0.9% 100 ml @ 5 MG/HR 5 mls/hr IV .Q24H [facility] Rx#:[id number] ceFAZolin 2 gm In Sodium 100 Chloride 0.9% 100 ml @ 100 mls/hr IVPB Q8HR [facility] Rx#:[id number] pressure bag 36 Output: Chest Tube Drainage 254 Bilateral Pleural Chest 224 Tube Mediastinal Chest Tube 30 Drainage 10 Left Wrist 10 Urine 1150 635 Estimated Blood Loss 750 Other: Voiding Method Indwelling Catheter Weight 110.67 kg Patient Weight 06/07/16 06:59 Weight 110.67 kg ABP, PAP, CO, CI - Last 8 Hours Arterial Blood Pressure 93/60 Arterial Blood Pressure 98/64 Arterial Blood Pressure 124/103 Arterial Blood Pressure 94/52 Arterial Blood Pressure 90/53 Arterial Blood Pressure 101/60 Arterial Blood Pressure 83/47 Arterial Blood Pressure 86/50 Arterial Blood Pressure 74/42 Arterial Blood Pressure 123/73 Arterial Blood Pressure 121/68 Pulmonary Artery Pressure 41/24 Pulmonary Artery Pressure 43/27 Pulmonary Artery Pressure 51/31 Pulmonary Artery Pressure 45/26 Pulmonary Artery Pressure 43/24 Pulmonary Artery Pressure 49/26 Pulmonary Artery Pressure 41/22 Pulmonary Artery Pressure 42/23 Pulmonary Artery Pressure 32/20 Pulmonary Artery Pressure 44/27 Pulmonary Artery Pressure 45/23 Pulmonary Artery Pressure 0/0 Cardiac Output 8.2 Cardiac Output 8.5 Cardiac Output 8.5 Cardiac Output 8.5 Cardiac Output 8.5 Cardiac Output 8.5 Cardiac Output 8.5 Cardiac Output 6.8 Cardiac Output 6.8 Cardiac Output 6.8 Cardiac Index 4.0 Cardiac Index 4.1 Physical Exam: Revealed a 61-year-old white male on mechanical ventilation, endotracheal tube is intact. HEENT:[Neck is supple.] [No neck masses.] [No thyromegaly.] [No JVD.] Endotracheal tube is intact Chest: [Minimal crackles at the bases] Cardiac Exam: [Normal S1 and S2, no S3 gallop, no murmur. Positive pericardial rub] Abdomen: [Soft, nontender, no megaly, no rebound, no guarding, normal bowel sounds.] Extremities: [No clubbing, no edema, no cyanosis.] Neurological Exam: Cannot be assessed patient is sedated Results - Laboratory Findings CBC and BMP: 06/06/16 14:33 06/06/16 14:33 ABG ABG pH 7.29 (7.35-7.45) L 06/06/16 15:52 ABG pCO2 49 mmHg (35-45) H 06/06/16 15:52 ABG pO2 92 mmHg (83-108) 06/06/16 15:52 ABG O2 Saturation 96.0 % (94-97) 06/06/16 15:52 PT/INR, D-dimer PT 11.1 sec (9.0-12.0) 06/06/16 14:33 INR 1.1 (<1.1) 06/06/16 14:33 Abnormal lab findings: Abnormal Labs 05/31/16 06/06/16 06/06/16 09:25 09:15 11:16 WBC RBC Hgb Hct Neutrophils # APTT ABG pH ABG pCO2 Glucose POC Glucose (mg/dL) 116 H 179 H Magnesium Total Protein Albumin Crossmatch See Detail 06/06/16 06/06/16 06/06/16 12:02 12:47 13:57 WBC RBC Hgb Hct Neutrophils # APTT ABG pH ABG pCO2 Glucose POC Glucose (mg/dL) 172 H 183 H 194 H Magnesium Total Protein Albumin Crossmatch 06/06/16 06/06/16 06/06/16 14:33 14:33 14:33 WBC 12.2 H RBC 3.89 L Hgb 11.9 L Hct 35.2 L Neutrophils # 9.3 H APTT 20.7 L ABG pH ABG pCO2 Glucose 167 H POC Glucose (mg/dL) Magnesium 2.8 H Total Protein 5.5 L Albumin 3.2 L Crossmatch 06/06/16 06/06/16 06/06/16 15:18 15:49 15:52 WBC RBC Hgb Hct Neutrophils # APTT ABG pH 7.29 L ABG pCO2 49 H Glucose POC Glucose (mg/dL) 164 H 137 H Magnesium Total Protein Albumin Crossmatch 06/06/16 06/06/16 16:52 18:26 WBC RBC Hgb Hct Neutrophils # APTT ABG pH ABG pCO2 Glucose POC Glucose (mg/dL) 173 H 158 H Magnesium Total Protein Albumin Crossmatch - Diagnostic Findings Chest x-ray: image reviewed (Postoperative changes otherwise unremarkable) Assessment and Plan Plan: Impression: Status post CABG, redo 2 with left radial artery harvest and left radial artery to obtuse marginal coronary artery and endovascular vein harvest from the left greater saphenous vein with bypass of the posterior lateral branch postoperative day 0. Multiple comorbidities including history of hypertension, previous CABG, and history of hyperlipidemia. Recommendation: Continue present treatment plan, plan to wean and extubate in the next few hours. Continue bronchodilators, and will follow. Time with Patient: Greater than 30
[2016-06-06 18:41] LABS: Basophils % (A) 0 %; CH 31.4; CHCM 34.8; Eosinophils % (A) 0 %; HCT 28.9 % (39.0-53.0); HDW 3.55; HGB 9.9 gm/dL (13.0-17.5); Ionized Calcium 4.9 mg/dL (4.5-5.3); Luc # (Auto) 0.07; Luc % (Auto) 1; Lymphocytes # (A) 0.4 k/uL (1.0-4.8); Lymphocytes % (A) 6 %; MCHC 34.1 g/dL (31.0-37.0); MCV 90.8 fL (80.0-100.0); Mean Platelet Volume 8.3; Monocytes # (A) 0.4 k/uL (0-1.0); Monocytes % (A) 8 %; Neutrophils % (A) 85 %; Poikilocytosis Slight; RBC 3.18 m/uL (4.30-5.90); RDW 14.9 % (11.5-15.5); WBC 5.9 k/uL (3.8-10.6); WBC (Perox) 6.39
[2016-06-06 18:49] LABS: INR 1.1 (<1.1); Partial Thromboplastin Time 23.5 sec (22.0-30.0); Prothrombin Time 11.2 sec (9.0-12.0)
[2016-06-06 18:51] LABS: Anion Gap 11 mmol/L; Blood Urea Nitrogen 19 mg/dL (9-20); Calcium 8.3 mg/dL (8.4-10.2); Carbon Dioxide 23 mmol/L (22-30); Chloride 106 mmol/L (98-107); Glucose 156 mg/dL (74-99); Magnesium 2.4 mg/dL (1.6-2.3); Non-African American GFR(MDRD) >60 (>60 ml/min/1.73 sqM); Potassium 4.4 mmol/L (3.5-5.1); Sodium 140 mmol/L (137-145)
[2016-06-06 18:52] LABS: Glucose,Whole Blood 168 mg/dL (75-99)
[2016-06-06] MEDS: MORPHINE SULFATE 2 MG/ML SYRINGE IVP PRN ×2 (20:02→22:07)
[2016-06-06] MEDS: INSULIN REGULAR 100 UNIT in SODIUM CHLORIDE 0.9% 100 ML IV SCH (20:32)
[2016-06-06 20:47] LABS: Glucose,Whole Blood 178 mg/dL (75-99)
[2016-06-06 21:09] LABS: Glucose,Whole Blood 168 mg/dL (75-99)
[2016-06-06] MEDS: MUPIROCIN 2% OINT 22 GM TUBE NASAL SCH (21:52)
[2016-06-06] MEDS: PROPOFOL 500 MG in EMPTY BAG 1 BAG IV SCH (22:00)
[2016-06-06] MEDS: HEPARIN SODIUM,PORCINE 5,000 UNIT/ML 1 ML VIAL SQ SCH (22:00)
[2016-06-06] MEDS: CHLORHEXIDINE GLUCONATE 15 ML CUP MUCOUS MEM SCH (22:15)
[2016-06-06 22:24] LABS: Glucose,Whole Blood 158 mg/dL (75-99)
[2016-06-06 23:06] LABS: Glucose,Whole Blood 156 mg/dL (75-99)
[2016-06-06 23:32] LABS: Glucose,Whole Blood 151 mg/dL (75-99)
[2016-06-06 23:42] LABS: Basophils % (A) 0 %; CH 31.2; CHCM 34.5; Eosinophils % (A) 0 %; HCT 27.8 % (39.0-53.0); HDW 3.51; HGB 9.6 gm/dL (13.0-17.5); Luc # (Auto) 0.08; Luc % (Auto) 1; Lymphocytes # (A) 0.4 k/uL (1.0-4.8); Lymphocytes % (A) 6 %; MCH 31.4 pg (25.0-35.0); MCHC 34.4 g/dL (31.0-37.0); MCV 91.1 fL (80.0-100.0); Mean Platelet Volume 8.1; Monocytes # (A) 0.3 k/uL (0-1.0); Monocytes % (A) 5 %; Neutrophils # (A) 5.6 k/uL (1.3-7.7); Neutrophils % (A) 87 %; Poikilocytosis Slight; RBC 3.05 m/uL (4.30-5.90); RDW 14.8 % (11.5-15.5); WBC 6.5 k/uL (3.8-10.6); WBC (Perox) 6.72
[2016-06-06] MEDS: DILTIAZEM ORAL 30 MG TAB PO SCH (23:45)
[2016-06-06 23:46] LABS: Ionized Calcium 4.9 mg/dL (4.5-5.3)
[2016-06-06 23:56] LABS: Anion Gap 10 mmol/L; Blood Urea Nitrogen 17 mg/dL (9-20); Calcium 8.2 mg/dL (8.4-10.2); Carbon Dioxide 25 mmol/L (22-30); Chloride 106 mmol/L (98-107); Glucose 141 mg/dL (74-99); Magnesium 2.1 mg/dL (1.6-2.3); Non-African American GFR(MDRD) >60 (>60 ml/min/1.73 sqM); Phosphorous 3.7 mg/dL (2.5-4.5); Potassium 4.2 mmol/L (3.5-5.1); Sodium 141 mmol/L (137-145)
[2016-06-07 00:53] LABS: Glucose,Whole Blood 152 mg/dL (75-99)
[2016-06-07] MEDS: MILRINONE-D5W PMX 20 MG in DEXTROSE/WATER 1 100ML.BAG IV SCH (01:51)
[2016-06-07] MEDS: DILTIAZEM 125 MG in SODIUM CHLORIDE 0.9% 100 ML IV SCH (01:52)
[2016-06-07 02:16] LABS: Glucose,Whole Blood 156 mg/dL (75-99)
[2016-06-07 03:14] LABS: Glucose,Whole Blood 158 mg/dL (75-99)
[2016-06-07] MEDS: MORPHINE SULFATE 2 MG/ML SYRINGE IVP PRN ×2 (03:17→05:31)
[2016-06-07] MEDS ORDERED: PROPOFOL 50 ML IV ONE (03:23)
[2016-06-07] MEDS: IPRATROPIUM-ALBUTEROL 3 ML NEB INHALATION SCH ×7 (03:31→20:46)
[2016-06-07 04:12] LABS: Glucose,Whole Blood 151 mg/dL (75-99)
[2016-06-07 05:12] LABS: Glucose,Whole Blood 147 mg/dL (75-99)
[2016-06-07 05:34] LABS: Basophils % (A) 0 %; CH 31.2; CHCM 34.4; Eosinophils % (A) 0 %; HCT 28.8 % (39.0-53.0); HDW 3.46; HGB 9.6 gm/dL (13.0-17.5); Luc # (Auto) 0.12; Luc % (Auto) 2; Lymphocytes # (A) 0.7 k/uL (1.0-4.8); Lymphocytes % (A) 10 %; MCH 30.3 pg (25.0-35.0); MCHC 33.2 g/dL (31.0-37.0); MCV 91.2 fL (80.0-100.0); Mean Platelet Volume 7.6; Monocytes # (A) 0.5 k/uL (0-1.0); Monocytes % (A) 6 %; Neutrophils % (A) 82 %; Poikilocytosis Slight; RBC 3.15 m/uL (4.30-5.90); RDW 14.9 % (11.5-15.5); WBC 7.3 k/uL (3.8-10.6); WBC (Perox) 7.55
[2016-06-07 05:42] LABS: Ionized Calcium 4.8 mg/dL (4.5-5.3)
[2016-06-07 05:49] LABS: ALT 44 U/L (21-72); AST 45 U/L (17-59); Alkaline Phosphatase 40 U/L (38-126); Anion Gap 10 mmol/L; Blood Urea Nitrogen 16 mg/dL (9-20); Calcium 8.2 mg/dL (8.4-10.2); Carbon Dioxide 26 mmol/L (22-30); Chloride 107 mmol/L (98-107); Glucose 129 mg/dL (74-99); Magnesium 2.1 mg/dL (1.6-2.3); Non-African American GFR(MDRD) >60 (>60 ml/min/1.73 sqM); Potassium 3.9 mmol/L (3.5-5.1); Sodium 143 mmol/L (137-145); Total Bilirubin 0.7 mg/dL (0.2-1.3); Total Protein 5.8 g/dL (6.3-8.2)
[2016-06-07] MEDS: ACETAMINOPHEN IV (For NPO) 1,000 MG in EMPTY BAG 1 BAG IVPB SCH ×3 (06:02→18:54)
[2016-06-07] MEDS: PROPOFOL 500 MG in EMPTY BAG 1 BAG IV SCH (06:11)
[2016-06-07 06:20] LABS: Glucose,Whole Blood 133 mg/dL (75-99)
[2016-06-07] MEDS: DILTIAZEM ORAL 30 MG TAB PO SCH ×4 (06:54→23:13)
--- NOTE | 2016-06-07 06:55 | XR ---
EXAMINATION TYPE: XR chest 1V portable DATE OF EXAM: 06/07/2016 6:51 AM CLINICAL HISTORY: Difficulty breathing post CABG progress study. TECHNIQUE: Single AP portable upright view of the chest is obtained. COMPARISON: Chest x-ray from one day earlier FINDINGS: An endotracheal tube, orogastric tube, right internal jugular [place]-Swati catheter, and bila teral chest tubes are all stable in appearance. Post CABG changes with mediastinal clips and sternal wires is redemonstrated. There is persistent cardiomegaly with mild central vascular congestion. There is no new suspicious fo umm airspace opacity, pleural effusion, or pneumothorax seen bilaterally. Osseous structures are inta ct. IMPRESSION: Overall stable findings, cardiomegaly with mild central vascular congestion remains pre sent.
[2016-06-07] MEDS ORDERED: POTASSIUM CHLORIDE ORAL LIQUID 40 MEQ/30 ML CUP NG-TUBE SCH (07:00)
[2016-06-07] MEDS: HEPARIN SODIUM,PORCINE 5,000 UNIT/ML 1 ML VIAL SQ SCH ×3 (07:55→21:13)
[2016-06-07] MEDS: CLOPIDOGREL 75 MG TAB PO SCH (08:02)
[2016-06-07] MEDS: MUPIROCIN 2% OINT 22 GM TUBE NASAL SCH ×2 (08:02→18:57)
[2016-06-07] MEDS: PANTOPRAZOLE 40 MG/10 ML VIAL IVP SCH (08:02)
[2016-06-07] MEDS: ASPIRIN 325 MG TAB PO SCH (08:03)
[2016-06-07] MEDS: ATORVASTATIN 40 MG TAB PO SCH (08:03)
[2016-06-07] MEDS ORDERED: FUROSEMIDE 10 MG/ML 4 ML VIAL IV STA (08:05)
[2016-06-07] MEDS: SERTRALINE 100 MG TAB PO SCH (08:06)
[2016-06-07] MEDS: CHLORHEXIDINE GLUCONATE 15 ML CUP MUCOUS MEM SCH ×2 (08:06→18:58)
--- NOTE | 2016-06-07 08:25 | P.PN ---
<Karin Guatam - Last Filed: 06/07/16 08:25> Subjective Principal diagnosis: Coronary artery disease of [place] and autologous grafts. POD #1 redo coronary artery bypass grafting 2 with left radial artery harvest and left radial artery to obtuse marginal coronary artery and endovascular vein harvest from the left greater saphenous vein with bypass of the posterior lateral branch. Patient currently sitting up in bed, still intubated, no apparent distress, alert and following commands. Objective - Vital Signs Vital signs: Vital Signs Temp 99 F 06/06/16 18:00 Pulse 77 06/07/16 07:30 Resp 20 06/07/16 00:30 BP 149/74 06/07/16 07:30 Pulse Ox 93 L 06/07/16 07:30 Intake & Output 06/06/16 06/07/16 06/07/16 18:59 06:59 18:59 Intake Total 1509 1294.341 Output Total 3045 1260 Balance -1536 34.341 Weight 110.67 kg 115.9 kg Intake: IV 1509 554 ACETAMINOPHEN IV (For NPO 100 100 ) 1,000 mg In Empty Bag 1 bag @ 400 mls/hr IVPB Q6HR [facility] Rx#:[id number] Albumin 1000 CO/CI 210 200 Diltiazem 125 mg In 45 55 Sodium Chloride 0.9% 100 ml @ 5 MG/HR 5 mls/hr IV .Q24H [facility] Rx#:[id number] ceFAZolin 2 gm In Sodium 100 100 Chloride 0.9% 100 ml @ 100 mls/hr IVPB Q8HR [facility] Rx#:[id number] pressure bag 54 99 Intake, IV Titration 680.341 Amount Diltiazem 125 mg In 41.167 Sodium Chloride 0.9% 100 ml @ 5 MG/HR 5 mls/hr IV .Q24H [facility] Rx#:[id number] Insulin Regular 100 unit 30.535 In Sodium Chloride 0.9% 100 ml @ Per Protocol IV .Q0M [facility] Rx#:[id number] Lactated Ringers 1,000 ml 550 @ 50 mls/hr IV .Q20H [facility] Rx#:[id number] Milrinone-D5w Pmx 20 mg 42.911 In Dextrose/Water 1 100ml .bag @ Per Protocol IV . Q0M [facility] Rx#:[id number] Propofol 500 mg In Empty 15.728 Bag 1 bag @ Titrate IV . Q0M [facility] Rx#:[id number] Oral 60 Output: Chest Tube Drainage 300 267 Bilateral Pleural Chest 244 144 Tube Mediastinal Chest Tube 56 123 Drainage 10 8 Left Wrist 10 8 Urine 1985 985 Estimated Blood Loss 750 Other: Voiding Method Indwelling Catheter Indwelling Catheter ABP, PAP, CO, CI - Last Documented Arterial Blood Pressure 129/68 Pulmonary Artery Pressure 42/18 Cardiac Output 8.9 Cardiac Index 4.3 - Constitutional General appearance: Present: cooperative, no acute distress - Respiratory Details: Lungs sounds diminished bilaterally with fine crackles bilateral bases. Respirations even and nonlabored on 60% FiO2 on the ventilator. Mediastinal chest tube to -20 cm wall suction, 76 mL serosanguineous drainage since midnight , 123 mL drainage in the last 12 hours. Left and right pleural chest tubes to - 20 cm wall suction, 54 mL serosanguineous drainage since midnight, 144 mL drainage in the last 12 hours. No air leak present. - Cardiovascular Details: S1, S2 present. No murmurs rubs or gallops heard. Regular rate, rhythm. Sinus rhythm with occasional PVCs on telemetry. Pacemaker generator turned off. Chest stable. Pulmonary artery catheter through right IJ Cordis present. Heart hugger in place. Trace bilateral lower extremity edema present. - Gastrointestinal Gastrointestinal Comment(s): Abdomen soft, nontender, nondistended. Active bowel sounds 4 quadrants. Denies flatus - Genitourinary Genitourinary Comment(s): Daly present draining clear yellow urine. Output has been 60-90 mL per hour. - Integumentary Integumentary Comment(s): Skin warm, dry. Anterior chest incision covered with dry intact silver dressing. Left radial graft site dressing dry and intact with SAMEER drain in place , draining minimal serosanguineous fluid. Right EVH site dressing dry and intact with SAMEER drain in place, draining minimal serosanguineous fluid. - Musculoskeletal Musculoskeletal: Present: strength equal bilaterally - Psychiatric Psychiatric: Present: A&O x's 3, appropriate affect, intact judgment & insight - Allied health notes Allied health notes reviewed: RT - Labs CBC & Chem 7: 06/07/16 05:10 06/07/16 05:10 Labs: Abnormal Lab Results - Last 24 Hours (Table) 05/31/16 06/06/16 06/06/16 Range/Units 09:25 09:15 11:16 WBC (3.8-10.6) k/uL RBC (4.30-5.90) m/uL Hgb (13.0-17.5) gm/dL Hct (39.0-53.0) % Plt Count (150-450) k/uL Neutrophils # (1.3-7.7) k/uL Lymphocytes # (1.0-4.8) k/uL APTT (22.0-30.0) sec ABG pH (7.35-7.45) ABG pCO2 (35-45) mmHg Glucose (74-99) mg/dL POC Glucose (mg/dL) 116 H 179 H (75-99) mg/dL Calcium (8.4-10.2) mg/dL Magnesium (1.6-2.3) mg/dL Total Protein (6.3-8.2) g/dL Albumin (3.5-5.0) g/dL Crossmatch See Detail 06/06/16 06/06/16 06/06/16 Range/Units 12:02 12:47 13:57 WBC (3.8-10.6) k/uL RBC (4.30-5.90) m/uL Hgb (13.0-17.5) gm/dL Hct (39.0-53.0) % Plt Count (150-450) k/uL Neutrophils # (1.3-7.7) k/uL Lymphocytes # (1.0-4.8) k/uL APTT (22.0-30.0) sec ABG pH (7.35-7.45) ABG pCO2 (35-45) mmHg Glucose (74-99) mg/dL POC Glucose (mg/dL) 172 H 183 H 194 H (75-99) mg/dL Calcium (8.4-10.2) mg/dL Magnesium (1.6-2.3) mg/dL Total Protein (6.3-8.2) g/dL Albumin (3.5-5.0) g/dL Crossmatch 06/06/16 06/06/16 06/06/16 Range/Units 14:33 14:33 14:33 WBC 12.2 H (3.8-10.6) k/uL RBC 3.89 L (4.30-5.90) m/uL Hgb 11.9 L (13.0-17.5) gm/dL Hct 35.2 L (39.0-53.0) % Plt Count (150-450) k/uL Neutrophils # 9.3 H (1.3-7.7) k/uL Lymphocytes # (1.0-4.8) k/uL APTT 20.7 L (22.0-30.0) sec ABG pH (7.35-7.45) ABG pCO2 (35-45) mmHg Glucose 167 H (74-99) mg/dL POC Glucose (mg/dL) (75-99) mg/dL Calcium (8.4-10.2) mg/dL Magnesium 2.8 H (1.6-2.3) mg/dL Total Protein 5.5 L (6.3-8.2) g/dL Albumin 3.2 L (3.5-5.0) g/dL Crossmatch 06/06/16 06/06/16 06/06/16 Range/Units 15:18 15:49 15:52 WBC (3.8-10.6) k/uL RBC (4.30-5.90) m/uL Hgb (13.0-17.5) gm/dL Hct (39.0-53.0) % Plt Count (150-450) k/uL Neutrophils # (1.3-7.7) k/uL Lymphocytes # (1.0-4.8) k/uL APTT (22.0-30.0) sec ABG pH 7.29 L (7.35-7.45) ABG pCO2 49 H (35-45) mmHg Glucose (74-99) mg/dL POC Glucose (mg/dL) 164 H 137 H (75-99) mg/dL Calcium (8.4-10.2) mg/dL Magnesium (1.6-2.3) mg/dL Total Protein (6.3-8.2) g/dL Albumin (3.5-5.0) g/dL Crossmatch 06/06/16 06/06/16 06/06/16 Range/Units 16:52 18:15 18:15 WBC (3.8-10.6) k/uL RBC 3.18 L (4.30-5.90) m/uL Hgb 9.9 L D (13.0-17.5) gm/dL Hct 28.9 L (39.0-53.0) % Plt Count 99 L (150-450) k/uL Neutrophils # (1.3-7.7) k/uL Lymphocytes # 0.4 L (1.0-4.8) k/uL APTT (22.0-30.0) sec ABG pH (7.35-7.45) ABG pCO2 (35-45) mmHg Glucose 156 H (74-99) mg/dL POC Glucose (mg/dL) 173 H (75-99) mg/dL Calcium 8.3 L (8.4-10.2) mg/dL Magnesium 2.4 H (1.6-2.3) mg/dL Total Protein (6.3-8.2) g/dL Albumin (3.5-5.0) g/dL Crossmatch 06/06/16 06/06/16 06/06/16 Range/Units 18:26 18:49 20:32 WBC (3.8-10.6) k/uL RBC (4.30-5.90) m/uL Hgb (13.0-17.5) gm/dL Hct (39.0-53.0) % Plt Count (150-450) k/uL Neutrophils # (1.3-7.7) k/uL Lymphocytes # (1.0-4.8) k/uL APTT (22.0-30.0) sec ABG pH (7.35-7.45) ABG pCO2 (35-45) mmHg Glucose (74-99) mg/dL POC Glucose (mg/dL) 158 H 168 H 178 H (75-99) mg/dL Calcium (8.4-10.2) mg/dL Magnesium (1.6-2.3) mg/dL Total Protein (6.3-8.2) g/dL Albumin (3.5-5.0) g/dL Crossmatch 06/06/16 06/06/16 06/06/16 Range/Units 21:08 22:21 23:05 WBC (3.8-10.6) k/uL RBC (4.30-5.90) m/uL Hgb (13.0-17.5) gm/dL Hct (39.0-53.0) % Plt Count (150-450) k/uL Neutrophils # (1.3-7.7) k/uL Lymphocytes # (1.0-4.8) k/uL APTT (22.0-30.0) sec ABG pH (7.35-7.45) ABG pCO2 (35-45) mmHg Glucose (74-99) mg/dL POC Glucose (mg/dL) 168 H 158 H 156 H (75-99) mg/dL Calcium (8.4-10.2) mg/dL Magnesium (1.6-2.3) mg/dL Total Protein (6.3-8.2) g/dL Albumin (3.5-5.0) g/dL Crossmatch 06/06/16 06/06/16 06/06/16 Range/Units 23:30 23:30 23:30 WBC (3.8-10.6) k/uL RBC 3.05 L (4.30-5.90) m/uL Hgb 9.6 L (13.0-17.5) gm/dL Hct 27.8 L (39.0-53.0) % Plt Count 104 L (150-450) k/uL Neutrophils # (1.3-7.7) k/uL Lymphocytes # 0.4 L (1.0-4.8) k/uL APTT (22.0-30.0) sec ABG pH (7.35-7.45) ABG pCO2 (35-45) mmHg Glucose 141 H (74-99) mg/dL POC Glucose (mg/dL) 151 H (75-99) mg/dL Calcium 8.2 L (8.4-10.2) mg/dL Magnesium (1.6-2.3) mg/dL Total Protein (6.3-8.2) g/dL Albumin (3.5-5.0) g/dL Crossmatch 06/07/16 06/07/16 06/07/16 Range/Units 00:51 02:14 03:12 WBC (3.8-10.6) k/uL RBC (4.30-5.90) m/uL Hgb (13.0-17.5) gm/dL Hct (39.0-53.0) % Plt Count (150-450) k/uL Neutrophils # (1.3-7.7) k/uL Lymphocytes # (1.0-4.8) k/uL APTT (22.0-30.0) sec ABG pH (7.35-7.45) ABG pCO2 (35-45) mmHg Glucose (74-99) mg/dL POC Glucose (mg/dL) 152 H 156 H 158 H (75-99) mg/dL Calcium (8.4-10.2) mg/dL Magnesium (1.6-2.3) mg/dL Total Protein (6.3-8.2) g/dL Albumin (3.5-5.0) g/dL Crossmatch 06/07/16 06/07/16 06/07/16 Range/Units 03:57 05:09 05:10 WBC (3.8-10.6) k/uL RBC 3.15 L (4.30-5.90) m/uL Hgb 9.6 L (13.0-17.5) gm/dL Hct 28.8 L (39.0-53.0) % Plt Count 121 L (150-450) k/uL Neutrophils # (1.3-7.7) k/uL Lymphocytes # 0.7 L (1.0-4.8) k/uL APTT (22.0-30.0) sec ABG pH (7.35-7.45) ABG pCO2 (35-45) mmHg Glucose (74-99) mg/dL POC Glucose (mg/dL) 151 H 147 H (75-99) mg/dL Calcium (8.4-10.2) mg/dL Magnesium (1.6-2.3) mg/dL Total Protein (6.3-8.2) g/dL Albumin (3.5-5.0) g/dL Crossmatch 06/07/16 06/07/16 Range/Units 05:10 06:18 WBC (3.8-10.6) k/uL RBC (4.30-5.90) m/uL Hgb (13.0-17.5) gm/dL Hct (39.0-53.0) % Plt Count (150-450) k/uL Neutrophils # (1.3-7.7) k/uL Lymphocytes # (1.0-4.8) k/uL APTT (22.0-30.0) sec ABG pH (7.35-7.45) ABG pCO2 (35-45) mmHg Glucose 129 H (74-99) mg/dL POC Glucose (mg/dL) 133 H (75-99) mg/dL Calcium 8.2 L (8.4-10.2) mg/dL Magnesium (1.6-2.3) mg/dL Total Protein 5.8 L (6.3-8.2) g/dL Albumin (3.5-5.0) g/dL Crossmatch - Imaging and Cardiology Chest x-ray: report reviewed, image reviewed Assessment and Plan (1) Coronary artery disease Status: Acute (2) Hypertension Status: Acute (3) Hyperlipidemia Status: Acute (4) PAD (peripheral artery disease) Status: Acute Plan: 1. Continue aspirin, Plavix, Lipitor, heparin SQ. Change Lopressor to home Coreg dose 12.5 mg twice a day. 2. DC Cardizem drip. Continue Cardizem 30 mg every 6 hours by mouth to prevent radial artery spasm. 3. Cardiac output remains greater than 8, index remains greater than 4, Primacor DC'd, [place] to be DC'd. 4. We will give Lasix 40 mg IV push 1 dose this morning. 5. Wean from ventilator as tolerated, hopefully will DC vent support today. 6. Tight glucose control with insulin drip, transition to SQ insulin per primary service when able. 7. Maintain chest tubes for 1 more day. 8. GI DVT prophylaxis. 9. Once extubated, need to increase activity. PT to follow. <Jhonny Zavala - Last Filed: 06/07/16 15:55> Objective - Vital Signs Vital signs: Vital Signs Temp 98.4 F 06/07/16 12:00 Pulse 71 06/07/16 13:30 Resp 22 06/07/16 13:30 BP 131/61 06/07/16 13:30 Pulse Ox 94 L 06/07/16 13:30 Intake & Output 06/06/16 06/07/16 06/07/16 18:59 06:59 18:59 Intake Total 1509 1294.341 366 Output Total 3045 1260 10 Balance -1536 34.341 356 Weight 110.67 kg 115.9 kg Intake: IV 1509 554 166 ACETAMINOPHEN IV (For NPO 100 100 ) 1,000 mg In Empty Bag 1 bag @ 400 mls/hr IVPB Q6HR [facility] Rx#:[id number] Albumin 1000 CO/CI 210 200 30 Diltiazem 125 mg In 45 55 Sodium Chloride 0.9% 100 ml @ 5 MG/HR 5 mls/hr IV .Q24H [facility] Rx#:[id number] ceFAZolin 2 gm In Sodium 100 100 100 Chloride 0.9% 100 ml @ 100 mls/hr IVPB Q8HR [facility] Rx#:[id number] pressure bag 54 99 36 Intake, IV Titration 680.341 200 Amount Diltiazem 125 mg In 41.167 Sodium Chloride 0.9% 100 ml @ 5 MG/HR 5 mls/hr IV .Q24H [facility] Rx#:[id number] Insulin Regular 100 unit 30.535 In Sodium Chloride 0.9% 100 ml @ Per Protocol IV .Q0M [facility] Rx#:[id number] Lactated Ringers 1,000 ml 550 200 @ 20 mls/hr IV .Q24H [facility] Rx#:[id number] Milrinone-D5w Pmx 20 mg 42.911 In Dextrose/Water 1 100ml .bag @ Per Protocol IV . Q0M [facility] Rx#:[id number] Propofol 500 mg In Empty 15.728 Bag 1 bag @ Titrate IV . Q0M [facility] Rx#:[id number] Oral 60 Output: Chest Tube Drainage 300 267 10 Bilateral Pleural Chest 244 144 0 Tube Mediastinal Chest Tube 56 123 10 Drainage 10 8 0 Left Wrist 10 8 0 Urine 1985 985 Estimated Blood Loss 750 Other: Voiding Method Indwelling Catheter Indwelling Catheter Indwelling Catheter ABP, PAP, CO, CI - Last Documented Arterial Blood Pressure 94/49 Pulmonary Artery Pressure 47/18 Cardiac Output 8.7 Cardiac Index 4.3 - Labs CBC & Chem 7: 06/07/16 05:10 06/07/16 05:10 Labs: Abnormal Lab Results - Last 24 Hours (Table) 05/31/16 06/06/16 06/06/16 Range/Units 09:25 14:33 14:33 RBC (4.30-5.90) m/uL Hgb (13.0-17.5) gm/dL Hct (39.0-53.0) % Plt Count (150-450) k/uL Lymphocytes # (1.0-4.8) k/uL APTT 20.7 L (22.0-30.0) sec ABG pH (7.35-7.45) ABG pCO2 (35-45) mmHg ABG pO2 (83-108) mmHg ABG HCO3 (21-25) mmol/L ABG Total CO2 (19-24) mmol/L ABG O2 Saturation (94-97) % Glucose 167 H (74-99) mg/dL POC Glucose (mg/dL) (75-99) mg/dL Calcium (8.4-10.2) mg/dL Magnesium 2.8 H (1.6-2.3) mg/dL Total Protein 5.5 L (6.3-8.2) g/dL Albumin 3.2 L (3.5-5.0) g/dL Crossmatch See Detail 06/06/16 06/06/16 06/06/16 Range/Units 15:49 15:52 16:52 RBC (4.30-5.90) m/uL Hgb (13.0-17.5) gm/dL Hct (39.0-53.0) % Plt Count (150-450) k/uL Lymphocytes # (1.0-4.8) k/uL APTT (22.0-30.0) sec ABG pH 7.29 L (7.35-7.45) ABG pCO2 49 H (35-45) mmHg ABG pO2 (83-108) mmHg ABG HCO3 (21-25) mmol/L ABG Total CO2 (19-24) mmol/L ABG O2 Saturation (94-97) % Glucose (74-99) mg/dL POC Glucose (mg/dL) 137 H 173 H (75-99) mg/dL Calcium (8.4-10.2) mg/dL Magnesium (1.6-2.3) mg/dL Total Protein (6.3-8.2) g/dL Albumin (3.5-5.0) g/dL Crossmatch 06/06/16 06/06/16 06/06/16 Range/Units 18:15 18:15 18:26 RBC 3.18 L (4.30-5.90) m/uL Hgb 9.9 L D (13.0-17.5) gm/dL Hct 28.9 L (39.0-53.0) % Plt Count 99 L (150-450) k/uL Lymphocytes # 0.4 L (1.0-4.8) k/uL APTT (22.0-30.0) sec ABG pH (7.35-7.45) ABG pCO2 (35-45) mmHg ABG pO2 (83-108) mmHg ABG HCO3 (21-25) mmol/L ABG Total CO2 (19-24) mmol/L ABG O2 Saturation (94-97) % Glucose 156 H (74-99) mg/dL POC Glucose (mg/dL) 158 H (75-99) mg/dL Calcium 8.3 L (8.4-10.2) mg/dL Magnesium 2.4 H (1.6-2.3) mg/dL Total Protein (6.3-8.2) g/dL Albumin (3.5-5.0) g/dL Crossmatch 06/06/16 06/06/16 06/06/16 Range/Units 18:49 20:32 21:08 RBC (4.30-5.90) m/uL Hgb (13.0-17.5) gm/dL Hct (39.0-53.0) % Plt Count (150-450) k/uL Lymphocytes # (1.0-4.8) k/uL APTT (22.0-30.0) sec ABG pH (7.35-7.45) ABG pCO2 (35-45) mmHg ABG pO2 (83-108) mmHg ABG HCO3 (21-25) mmol/L ABG Total CO2 (19-24) mmol/L ABG O2 Saturation (94-97) % Glucose (74-99) mg/dL POC Glucose (mg/dL) 168 H 178 H 168 H (75-99) mg/dL Calcium (8.4-10.2) mg/dL Magnesium (1.6-2.3) mg/dL Total Protein (6.3-8.2) g/dL Albumin (3.5-5.0) g/dL Crossmatch 06/06/16 06/06/16 06/06/16 Range/Units 22:21 23:05 23:30 RBC (4.30-5.90) m/uL Hgb (13.0-17.5) gm/dL Hct (39.0-53.0) % Plt Count (150-450) k/uL Lymphocytes # (1.0-4.8) k/uL APTT (22.0-30.0) sec ABG pH (7.35-7.45) ABG pCO2 (35-45) mmHg ABG pO2 (83-108) mmHg ABG HCO3 (21-25) mmol/L ABG Total CO2 (19-24) mmol/L ABG O2 Saturation (94-97) % Glucose (74-99) mg/dL POC Glucose (mg/dL) 158 H 156 H 151 H (75-99) mg/dL Calcium (8.4-10.2) mg/dL Magnesium (1.6-2.3) mg/dL Total Protein (6.3-8.2) g/dL Albumin (3.5-5.0) g/dL Crossmatch 06/06/16 06/06/16 06/07/16 Range/Units 23:30 23:30 00:51 RBC 3.05 L (4.30-5.90) m/uL Hgb 9.6 L (13.0-17.5) gm/dL Hct 27.8 L (39.0-53.0) % Plt Count 104 L (150-450) k/uL Lymphocytes # 0.4 L (1.0-4.8) k/uL APTT (22.0-30.0) sec ABG pH (7.35-7.45) ABG pCO2 (35-45) mmHg ABG pO2 (83-108) mmHg ABG HCO3 (21-25) mmol/L ABG Total CO2 (19-24) mmol/L ABG O2 Saturation (94-97) % Glucose 141 H (74-99) mg/dL POC Glucose (mg/dL) 152 H (75-99) mg/dL Calcium 8.2 L (8.4-10.2) mg/dL Magnesium (1.6-2.3) mg/dL Total Protein (6.3-8.2) g/dL Albumin (3.5-5.0) g/dL Crossmatch 06/07/16 06/07/16 06/07/16 Range/Units 02:14 03:12 03:57 RBC (4.30-5.90) m/uL Hgb (13.0-17.5) gm/dL Hct (39.0-53.0) % Plt Count (150-450) k/uL Lymphocytes # (1.0-4.8) k/uL APTT (22.0-30.0) sec ABG pH (7.35-7.45) ABG pCO2 (35-45) mmHg ABG pO2 (83-108) mmHg ABG HCO3 (21-25) mmol/L ABG Total CO2 (19-24) mmol/L ABG O2 Saturation (94-97) % Glucose (74-99) mg/dL POC Glucose (mg/dL) 156 H 158 H 151 H (75-99) mg/dL Calcium (8.4-10.2) mg/dL Magnesium (1.6-2.3) mg/dL Total Protein (6.3-8.2) g/dL Albumin (3.5-5.0) g/dL Crossmatch 06/07/16 06/07/16 06/07/16 Range/Units 05:09 05:10 05:10 RBC 3.15 L (4.30-5.90) m/uL Hgb 9.6 L (13.0-17.5) gm/dL Hct 28.8 L (39.0-53.0) % Plt Count 121 L (150-450) k/uL Lymphocytes # 0.7 L (1.0-4.8) k/uL APTT (22.0-30.0) sec ABG pH (7.35-7.45) ABG pCO2 (35-45) mmHg ABG pO2 (83-108) mmHg ABG HCO3 (21-25) mmol/L ABG Total CO2 (19-24) mmol/L ABG O2 Saturation (94-97) % Glucose 129 H (74-99) mg/dL POC Glucose (mg/dL) 147 H (75-99) mg/dL Calcium 8.2 L (8.4-10.2) mg/dL Magnesium (1.6-2.3) mg/dL Total Protein 5.8 L (6.3-8.2) g/dL Albumin (3.5-5.0) g/dL Crossmatch 06/07/16 06/07/16 06/07/16 Range/Units 06:18 08:33 09:55 RBC (4.30-5.90) m/uL Hgb (13.0-17.5) gm/dL Hct (39.0-53.0) % Plt Count (150-450) k/uL Lymphocytes # (1.0-4.8) k/uL APTT (22.0-30.0) sec ABG pH (7.35-7.45) ABG pCO2 (35-45) mmHg ABG pO2 60 L (83-108) mmHg ABG HCO3 26 H (21-25) mmol/L ABG Total CO2 28 H (19-24) mmol/L ABG O2 Saturation 91.0 L (94-97) % Glucose (74-99) mg/dL POC Glucose (mg/dL) 133 H 129 H (75-99) mg/dL Calcium (8.4-10.2) mg/dL Magnesium (1.6-2.3) mg/dL Total Protein (6.3-8.2) g/dL Albumin (3.5-5.0) g/dL Crossmatch 06/07/16 06/07/16 06/07/16 Range/Units 10:04 12:01 14:11 RBC (4.30-5.90) m/uL Hgb (13.0-17.5) gm/dL Hct (39.0-53.0) % Plt Count (150-450) k/uL Lymphocytes # (1.0-4.8) k/uL APTT (22.0-30.0) sec ABG pH (7.35-7.45) ABG pCO2 (35-45) mmHg ABG pO2 (83-108) mmHg ABG HCO3 (21-25) mmol/L ABG Total CO2 (19-24) mmol/L ABG O2 Saturation (94-97) % Glucose (74-99) mg/dL POC Glucose (mg/dL) 137 H 108 H 122 H (75-99) mg/dL Calcium (8.4-10.2) mg/dL Magnesium (1.6-2.3) mg/dL Total Protein (6.3-8.2) g/dL Albumin (3.5-5.0) g/dL Crossmatch Assessment and Plan Plan: The patient was seen and examined. I agree with the assessment and plan. He is currently on minimal ventilator settings. We will plan to wean him to extubation today. He has remained hemodynamically stable overnight with an adequate CI. His [place]-darren catheter will be removed. We will transition him to oral cardizem. His labs and CXR were reviewed. He was given lasix this morning.
[2016-06-07] MEDS: CARVEDILOL 12.5 MG TAB PO SCH ×2 (08:33→18:57)
[2016-06-07] MEDS: ceFAZolin 2 GM in SODIUM CHLORIDE 0.9% 100 ML IVPB SCH (08:33)
[2016-06-07 08:34] LABS: Glucose,Whole Blood 129 mg/dL (75-99)
[2016-06-07] MEDS ORDERED: METOPROLOL TARTRATE 12.5 MG TAB PO SCH (09:00)
[2016-06-07 09:18] LABS: Hemoglobin A1C 6.1 % (4.2-6.1)
[2016-06-07 10:07] LABS: Glucose,Whole Blood 137 mg/dL (75-99)
--- NOTE | 2016-06-07 10:41 | P.PN ---
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 Patient had recent cardiac catheterization, and Dr. Harmon was consulted for his abnormal cardiac cath. Today the patient underwent elective redo coronary artery bypass grafting 2 with left radial artery harvest and left radial artery to obtuse marginal coronary artery and endovascular vein harvest from the left greater saphenous vein with bypass of the posterior lateral branch postoperatively, patient was on mechanical ventilation, and I was asked to see him on consultation. Patient remains presently on mechanical ventilation, and I placed the patient on assist control mode after reviewing his ABG, I also reviewed his chest x-ray which was felt to be unremarkable except for some postoperative changes. Patient was reevaluated today on 06/07/2015, he is weaning however his ABG showed a marginal pO2 of 60, this was on a 40% FiO2. However the rest of the numbers look reasonable and the patient looked clinically comfortable based on my physical examination. Hence I will proceed to extubating the patient to a high flow nasal cannula, and we'll keep him on diuretics and bronchodilators. He received 1 dose of Lasix today. Chest x-ray today showed stable findings with cardiomegaly and mild vascular congestion. Some atelectasis as noted in the left base. Labs were reviewed, he has a relatively normal CBC and normal basic metabolic profile. Objective - Vital Signs Vital signs: Vital Signs Temp 99 F 06/06/16 18:00 Pulse 77 06/07/16 07:30 Resp 20 06/07/16 00:30 BP 149/74 06/07/16 07:30 Pulse Ox 93 L 06/07/16 07:30 Intake & Output 06/06/16 06/07/16 06/07/16 18:59 06:59 18:59 Intake Total 1509 1294.341 Output Total 3045 1260 Balance -1536 34.341 Weight 110.67 kg 115.9 kg Intake: IV 1509 554 ACETAMINOPHEN IV (For NPO 100 100 ) 1,000 mg In Empty Bag 1 bag @ 400 mls/hr IVPB Q6HR [facility] Rx#:[id number] Albumin 1000 CO/CI 210 200 Diltiazem 125 mg In 45 55 Sodium Chloride 0.9% 100 ml @ 5 MG/HR 5 mls/hr IV .Q24H [facility] Rx#:[id number] ceFAZolin 2 gm In Sodium 100 100 Chloride 0.9% 100 ml @ 100 mls/hr IVPB Q8HR [facility] Rx#:[id number] pressure bag 54 99 Intake, IV Titration 680.341 Amount Diltiazem 125 mg In 41.167 Sodium Chloride 0.9% 100 ml @ 5 MG/HR 5 mls/hr IV .Q24H [facility] Rx#:[id number] Insulin Regular 100 unit 30.535 In Sodium Chloride 0.9% 100 ml @ Per Protocol IV .Q0M [facility] Rx#:[id number] Lactated Ringers 1,000 ml 550 @ 50 mls/hr IV .Q20H [facility] Rx#:[id number] Milrinone-D5w Pmx 20 mg 42.911 In Dextrose/Water 1 100ml .bag @ Per Protocol IV . Q0M [facility] Rx#:[id number] Propofol 500 mg In Empty 15.728 Bag 1 bag @ Titrate IV . Q0M [facility] Rx#:[id number] Oral 60 Output: Chest Tube Drainage 300 267 Bilateral Pleural Chest 244 144 Tube Mediastinal Chest Tube 56 123 Drainage 10 8 Left Wrist 10 8 Urine 1985 985 Estimated Blood Loss 750 Other: Voiding Method Indwelling Catheter Indwelling Catheter ABP, PAP, CO, CI - Last Documented Arterial Blood Pressure 129/68 Pulmonary Artery Pressure 42/18 Cardiac Output 8.9 Cardiac Index 4.3 - Exam Physical Exam: Revealed a 61-year-old white male on mechanical ventilation, endotracheal tube is intact. HEENT:[Neck is supple.] [No neck masses.] [No thyromegaly.] [No JVD.] Endotracheal tube is intact Chest: [Minimal crackles at the bases] Cardiac Exam: [Normal S1 and S2, no S3 gallop, no murmur. Positive pericardial rub] Abdomen: [Soft, nontender, no megaly, no rebound, no guarding, normal bowel sounds.] Extremities: [No clubbing, no edema, no cyanosis.] Neurological Exam: No focal neurologic deficit, patient is awake, and very appropriate. No focal deficit noted. - Labs CBC & Chem 7: 06/07/16 05:10 06/07/16 05:10 Labs: Abnormal Lab Results - Last 24 Hours (Table) 05/31/16 06/06/16 06/06/16 Range/Units 09:25 11:16 12:02 WBC (3.8-10.6) k/uL RBC (4.30-5.90) m/uL Hgb (13.0-17.5) gm/dL Hct (39.0-53.0) % Plt Count (150-450) k/uL Neutrophils # (1.3-7.7) k/uL Lymphocytes # (1.0-4.8) k/uL APTT (22.0-30.0) sec ABG pH (7.35-7.45) ABG pCO2 (35-45) mmHg Glucose (74-99) mg/dL POC Glucose (mg/dL) 179 H 172 H (75-99) mg/dL Calcium (8.4-10.2) mg/dL Magnesium (1.6-2.3) mg/dL Total Protein (6.3-8.2) g/dL Albumin (3.5-5.0) g/dL Crossmatch See Detail 06/06/16 06/06/16 06/06/16 Range/Units 12:47 13:57 14:33 WBC 12.2 H (3.8-10.6) k/uL RBC 3.89 L (4.30-5.90) m/uL Hgb 11.9 L (13.0-17.5) gm/dL Hct 35.2 L (39.0-53.0) % Plt Count (150-450) k/uL Neutrophils # 9.3 H (1.3-7.7) k/uL Lymphocytes # (1.0-4.8) k/uL APTT (22.0-30.0) sec ABG pH (7.35-7.45) ABG pCO2 (35-45) mmHg Glucose (74-99) mg/dL POC Glucose (mg/dL) 183 H 194 H (75-99) mg/dL Calcium (8.4-10.2) mg/dL Magnesium (1.6-2.3) mg/dL Total Protein (6.3-8.2) g/dL Albumin (3.5-5.0) g/dL Crossmatch 06/06/16 06/06/16 06/06/16 Range/Units 14:33 14:33 15:18 WBC (3.8-10.6) k/uL RBC (4.30-5.90) m/uL Hgb (13.0-17.5) gm/dL Hct (39.0-53.0) % Plt Count (150-450) k/uL Neutrophils # (1.3-7.7) k/uL Lymphocytes # (1.0-4.8) k/uL APTT 20.7 L (22.0-30.0) sec ABG pH (7.35-7.45) ABG pCO2 (35-45) mmHg Glucose 167 H (74-99) mg/dL POC Glucose (mg/dL) 164 H (75-99) mg/dL Calcium (8.4-10.2) mg/dL Magnesium 2.8 H (1.6-2.3) mg/dL Total Protein 5.5 L (6.3-8.2) g/dL Albumin 3.2 L (3.5-5.0) g/dL Crossmatch 06/06/16 06/06/16 06/06/16 Range/Units 15:49 15:52 16:52 WBC (3.8-10.6) k/uL RBC (4.30-5.90) m/uL Hgb (13.0-17.5) gm/dL Hct (39.0-53.0) % Plt Count (150-450) k/uL Neutrophils # (1.3-7.7) k/uL Lymphocytes # (1.0-4.8) k/uL APTT (22.0-30.0) sec ABG pH 7.29 L (7.35-7.45) ABG pCO2 49 H (35-45) mmHg Glucose (74-99) mg/dL POC Glucose (mg/dL) 137 H 173 H (75-99) mg/dL Calcium (8.4-10.2) mg/dL Magnesium (1.6-2.3) mg/dL Total Protein (6.3-8.2) g/dL Albumin (3.5-5.0) g/dL Crossmatch 06/06/16 06/06/16 06/06/16 Range/Units 18:15 18:15 18:26 WBC (3.8-10.6) k/uL RBC 3.18 L (4.30-5.90) m/uL Hgb 9.9 L D (13.0-17.5) gm/dL Hct 28.9 L (39.0-53.0) % Plt Count 99 L (150-450) k/uL Neutrophils # (1.3-7.7) k/uL Lymphocytes # 0.4 L (1.0-4.8) k/uL APTT (22.0-30.0) sec ABG pH (7.35-7.45) ABG pCO2 (35-45) mmHg Glucose 156 H (74-99) mg/dL POC Glucose (mg/dL) 158 H (75-99) mg/dL Calcium 8.3 L (8.4-10.2) mg/dL Magnesium 2.4 H (1.6-2.3) mg/dL Total Protein (6.3-8.2) g/dL Albumin (3.5-5.0) g/dL Crossmatch 06/06/16 06/06/16 06/06/16 Range/Units 18:49 20:32 21:08 WBC (3.8-10.6) k/uL RBC (4.30-5.90) m/uL Hgb (13.0-17.5) gm/dL Hct (39.0-53.0) % Plt Count (150-450) k/uL Neutrophils # (1.3-7.7) k/uL Lymphocytes # (1.0-4.8) k/uL APTT (22.0-30.0) sec ABG pH (7.35-7.45) ABG pCO2 (35-45) mmHg Glucose (74-99) mg/dL POC Glucose (mg/dL) 168 H 178 H 168 H (75-99) mg/dL Calcium (8.4-10.2) mg/dL Magnesium (1.6-2.3) mg/dL Total Protein (6.3-8.2) g/dL Albumin (3.5-5.0) g/dL Crossmatch 06/06/16 06/06/16 06/06/16 Range/Units 22:21 23:05 23:30 WBC (3.8-10.6) k/uL RBC (4.30-5.90) m/uL Hgb (13.0-17.5) gm/dL Hct (39.0-53.0) % Plt Count (150-450) k/uL Neutrophils # (1.3-7.7) k/uL Lymphocytes # (1.0-4.8) k/uL APTT (22.0-30.0) sec ABG pH (7.35-7.45) ABG pCO2 (35-45) mmHg Glucose (74-99) mg/dL POC Glucose (mg/dL) 158 H 156 H 151 H (75-99) mg/dL Calcium (8.4-10.2) mg/dL Magnesium (1.6-2.3) mg/dL Total Protein (6.3-8.2) g/dL Albumin (3.5-5.0) g/dL Crossmatch 06/06/16 06/06/16 06/07/16 Range/Units 23:30 23:30 00:51 WBC (3.8-10.6) k/uL RBC 3.05 L (4.30-5.90) m/uL Hgb 9.6 L (13.0-17.5) gm/dL Hct 27.8 L (39.0-53.0) % Plt Count 104 L (150-450) k/uL Neutrophils # (1.3-7.7) k/uL Lymphocytes # 0.4 L (1.0-4.8) k/uL APTT (22.0-30.0) sec ABG pH (7.35-7.45) ABG pCO2 (35-45) mmHg Glucose 141 H (74-99) mg/dL POC Glucose (mg/dL) 152 H (75-99) mg/dL Calcium 8.2 L (8.4-10.2) mg/dL Magnesium (1.6-2.3) mg/dL Total Protein (6.3-8.2) g/dL Albumin (3.5-5.0) g/dL Crossmatch 06/07/16 06/07/16 06/07/16 Range/Units 02:14 03:12 03:57 WBC (3.8-10.6) k/uL RBC (4.30-5.90) m/uL Hgb (13.0-17.5) gm/dL Hct (39.0-53.0) % Plt Count (150-450) k/uL Neutrophils # (1.3-7.7) k/uL Lymphocytes # (1.0-4.8) k/uL APTT (22.0-30.0) sec ABG pH (7.35-7.45) ABG pCO2 (35-45) mmHg Glucose (74-99) mg/dL POC Glucose (mg/dL) 156 H 158 H 151 H (75-99) mg/dL Calcium (8.4-10.2) mg/dL Magnesium (1.6-2.3) mg/dL Total Protein (6.3-8.2) g/dL Albumin (3.5-5.0) g/dL Crossmatch 06/07/16 06/07/16 06/07/16 Range/Units 05:09 05:10 05:10 WBC (3.8-10.6) k/uL RBC 3.15 L (4.30-5.90) m/uL Hgb 9.6 L (13.0-17.5) gm/dL Hct 28.8 L (39.0-53.0) % Plt Count 121 L (150-450) k/uL Neutrophils # (1.3-7.7) k/uL Lymphocytes # 0.7 L (1.0-4.8) k/uL APTT (22.0-30.0) sec ABG pH (7.35-7.45) ABG pCO2 (35-45) mmHg Glucose 129 H (74-99) mg/dL POC Glucose (mg/dL) 147 H (75-99) mg/dL Calcium 8.2 L (8.4-10.2) mg/dL Magnesium (1.6-2.3) mg/dL Total Protein 5.8 L (6.3-8.2) g/dL Albumin (3.5-5.0) g/dL Crossmatch 06/07/16 06/07/16 06/07/16 Range/Units 06:18 08:33 10:04 WBC (3.8-10.6) k/uL RBC (4.30-5.90) m/uL Hgb (13.0-17.5) gm/dL Hct (39.0-53.0) % Plt Count (150-450) k/uL Neutrophils # (1.3-7.7) k/uL Lymphocytes # (1.0-4.8) k/uL APTT (22.0-30.0) sec ABG pH (7.35-7.45) ABG pCO2 (35-45) mmHg Glucose (74-99) mg/dL POC Glucose (mg/dL) 133 H 129 H 137 H (75-99) mg/dL Calcium (8.4-10.2) mg/dL Magnesium (1.6-2.3) mg/dL Total Protein (6.3-8.2) g/dL Albumin (3.5-5.0) g/dL Crossmatch Assessment and Plan Plan: Impression: Status post CABG, redo 2 with left radial artery harvest and left radial artery to obtuse marginal coronary artery and endovascular vein harvest from the left greater saphenous vein with bypass of the posterior lateral branch postoperative day #1 Multiple comorbidities including history of hypertension, previous CABG, and history of hyperlipidemia. Recommendation: Continue present treatment plan, I plan to extubate the patient on high flow nasal cannula, and we'll continue incentive spirometry, bronchodilators, and diuretics as needed. Time with Patient: Greater than 30
[2016-06-07 12:03] LABS: Glucose,Whole Blood 108 mg/dL (75-99)
[2016-06-07 12:26] LABS: ABG Base Excess 2.4 mmol/L; ABG HCO3 26 mmol/L (21-25); ABG PCO2 40 mmHg (35-45); ABG PH 7.43 (7.35-7.45); ABG PO2 60 mmHg (83-108); ABG TCO2 28 mmol/L (19-24)
[2016-06-07] MEDS ORDERED: HYDROcodone/APAP 5-325MG 1 EACH TAB PO PRN (13:39)
[2016-06-07] MEDS ORDERED: BISACODYL 10 MG SUPP RECTAL PRN (13:40)
[2016-06-07] MEDS ORDERED: MAGNESIUM HYDROXIDE 2,400 MG/10 ML CUP PO PRN (13:40)
[2016-06-07 14:13] LABS: Glucose,Whole Blood 122 mg/dL (75-99)
[2016-06-07] MEDS: LACTATED RINGERS 1,000 ML IV SCH (15:52)
[2016-06-07 16:43] LABS: Glucose,Whole Blood 98 mg/dL (75-99)
--- NOTE | 2016-06-07 16:57 | CONS ---
Ke is a 61-year-old gentleman who is status post redo bypass surgery and Cardiology is consulted because of his CAD. This morning, patient is doing well. He is extubated, remains in sinus rhythm, hemodynamically stable. His bypass involved left radial artery to OM, vein graft to PLV. Patient's predominant symptom is in the form of discomfort at the incision site. Past medical history is significant for CAD, status post CABG, hypertension, COPD, dyslipidemia. Current medications include: 1. Norvasc 10 daily. 2. Cozaar 100 daily. 3. Plavix 75 daily. 4. Coreg 12.5 b.i.d. 5. Lipitor 80 daily and 6. Aspirin. ALLERGIES: There are no known drug allergies. FAMILY HISTORY: Negative for premature coronary artery disease. SOCIAL HISTORY: Negative for current smoking, EtOH use or drug abuse. REVIEW OF SYSTEMS: HEENT: Unremarkable. CARDIAC: As described above. RESPIRATORY: Negative. GI: Negative. GENITOURINARY: Negative. MUSCULOSKELETAL: Significant for arthritis. PSYCHOSOCIAL: Negative. ENDOCRINE: Negative. DERM: Negative. CONSTITUTIONAL: Negative. The rest of the system review is not relevant. On exam, comfortable at rest. Vital signs are stable. Chest reveals diminished air entry at the bases. Heart reveals first and second heart sounds. No gallop. Extremities did not reveal edema. Peripheral pulses are felt. Labs have been reviewed. Potassium is 3.9, creatinine is 0.8. Hemoglobin is 9.6, platelet count is 120. ASSESSMENT: Coronary artery disease, status post redo coronary artery bypass graft. PLAN: The patient is doing well. We will continue aspirin, Lipitor, Coreg, Plavix.
[2016-06-07] MEDS ORDERED: POTASSIUM CHLORIDE ER 20 MEQ TAB.ER PO SCH (17:00)
[2016-06-07 18:07] LABS: Glucose,Whole Blood 97 mg/dL (75-99)
[2016-06-07] MEDS: INSULIN REGULAR 100 UNIT in SODIUM CHLORIDE 0.9% 100 ML IV SCH (19:08)
[2016-06-07] MEDS: SENNOSIDES-DOCUSATE SODIUM 1 EACH TAB PO SCH (19:11)
[2016-06-07] MEDS ORDERED: IPRATROPIUM-ALBUTEROL 3 ML NEB INHALATION PRN (20:57)
[2016-06-07 21:17] LABS: Glucose,Whole Blood 120 mg/dL (75-99)
[2016-06-07 22:50] LABS: Glucose,Whole Blood 113 mg/dL (75-99)
[2016-06-07] MEDS: HYDROcodone/APAP 5-325MG 1 EACH TAB PO PRN (23:15)
[2016-06-08] MEDS ORDERED: POTASSIUM CHLORIDE ER 20 MEQ TAB.ER PO SCH
[2016-06-08 01:18] LABS: Glucose,Whole Blood 121 mg/dL (75-99)
[2016-06-08] MEDS: MORPHINE SULFATE 2 MG/ML SYRINGE IVP PRN ×2 (01:26→04:57)
[2016-06-08 02:54] LABS: Glucose,Whole Blood 121 mg/dL (75-99)
[2016-06-08] MEDS ORDERED: PROPOFOL 50 ML IV ONE ×4 (04:01→22:27)
[2016-06-08] MEDS ORDERED: SUCCINYLCHOLINE CHLORIDE 100 MG/5 ML SYR IV ONE (04:08)
[2016-06-08] MEDS ORDERED: PROPOFOL 10 MG/ML 20 ML VIAL IV ONE (04:08)
--- NOTE | 2016-06-08 04:58 | XR ---
EXAMINATION TYPE: XR chest 1V portable DATE OF EXAM: 06/08/2016 4:22 AM COMPARISON: Yesterday HISTORY: Cardiac surgery. Check tube placement TECHNIQUE: Single frontal view of the chest is obtained. FINDINGS: There is endotracheal tube in good position. There is right jugular catheter with the tip in the right pulmonary artery. There is no sign of pneumothorax. There are bilateral chest tubes. The re is a nasogastric tube. There is no gross heart failure. IMPRESSION: Right jugular catheter has tip in the right pulmonary artery. No heart failure or pulmon julio consolidation. Chest overall is improved slightly compared to yesterday.
[2016-06-08] MEDS: LACTATED RINGERS 1,000 ML IV SCH (05:05)
[2016-06-08 05:06] LABS: Glucose,Whole Blood 132 mg/dL (75-99)
[2016-06-08 05:14] LABS: ABG Base Excess -3.3 mmol/L; ABG HCO3 21 mmol/L (21-25); ABG PCO2 36 mmHg (35-45); ABG PH 7.38 (7.35-7.45); ABG PO2 95 mmHg (83-108); ABG TCO2 22 mmol/L (19-24)
[2016-06-08 05:27] LABS: INR 1.1 (<1.1); Prothrombin Time 10.9 sec (9.0-12.0)
[2016-06-08 05:29] LABS: Basophils # (A) 0.1 k/uL (0-0.2); Basophils % (A) 1 %; CH 31.2; CHCM 34.3; Eosinophils # (A) 0.2 k/uL (0-0.7); Eosinophils % (A) 2 %; HCT 26.5 % (39.0-53.0); HDW 3.45; HGB 8.8 gm/dL (13.0-17.5); Luc # (Auto) 0.06; Luc % (Auto) 1; Lymphocytes # (A) 0.7 k/uL (1.0-4.8); Lymphocytes % (A) 9 %; MCH 30.5 pg (25.0-35.0); MCHC 33.2 g/dL (31.0-37.0); MCV 91.7 fL (80.0-100.0); Mean Platelet Volume 8.8; Monocytes # (A) 0.3 k/uL (0-1.0); Monocytes % (A) 4 %; Neutrophils # (A) 5.8 k/uL (1.3-7.7); Neutrophils % (A) 82 %; Poikilocytosis Slight; RBC 2.89 m/uL (4.30-5.90); RDW 15.1 % (11.5-15.5); WBC 7.1 k/uL (3.8-10.6); WBC (Perox) 7.19
[2016-06-08 05:37] LABS: Manual Review Performed
[2016-06-08 05:41] LABS: Ionized Calcium 4.8 mg/dL (4.5-5.3)
[2016-06-08 05:56] LABS: ALT 39 U/L (21-72); AST 36 U/L (17-59); Alkaline Phosphatase 43 U/L (38-126); Anion Gap 9 mmol/L; Blood Urea Nitrogen 18 mg/dL (9-20); Calcium 8.2 mg/dL (8.4-10.2); Carbon Dioxide 29 mmol/L (22-30); Chloride 103 mmol/L (98-107); Glucose 121 mg/dL (74-99); Magnesium 2.1 mg/dL (1.6-2.3); Non-African American GFR(MDRD) >60 (>60 ml/min/1.73 sqM); Potassium 4.2 mmol/L (3.5-5.1); Sodium 141 mmol/L (137-145); Total Bilirubin 0.8 mg/dL (0.2-1.3); Total Protein 5.6 g/dL (6.3-8.2)
[2016-06-08] MEDS: DILTIAZEM ORAL 30 MG TAB PO SCH ×3 (06:27→17:25)
[2016-06-08] MEDS: HEPARIN SODIUM,PORCINE 5,000 UNIT/ML 1 ML VIAL SQ SCH ×3 (06:27→21:01)
[2016-06-08] MEDS: CARVEDILOL 12.5 MG TAB PO SCH (06:34)
[2016-06-08] MEDS: PROPOFOL 500 MG in EMPTY BAG 1 BAG IV SCH ×8 (07:15→22:28)
[2016-06-08 07:18] LABS: Glucose,Whole Blood 151 mg/dL (75-99)
[2016-06-08] MEDS: IPRATROPIUM-ALBUTEROL 3 ML NEB INHALATION SCH ×4 (07:38→19:28)
[2016-06-08 08:20] LABS: Glucose,Whole Blood 128 mg/dL (75-99)
[2016-06-08] MEDS: CHLORHEXIDINE GLUCONATE 15 ML CUP MUCOUS MEM SCH ×2 (08:46→21:01)
[2016-06-08] MEDS: PANTOPRAZOLE 40 MG/10 ML VIAL IVP SCH (08:47)
[2016-06-08] MEDS: MUPIROCIN 2% OINT 22 GM TUBE NASAL SCH ×2 (08:47→21:01)
[2016-06-08] MEDS: CLOPIDOGREL 75 MG TAB PO SCH (08:47)
[2016-06-08] MEDS: SERTRALINE 100 MG TAB PO SCH (08:47)
[2016-06-08] MEDS: ASPIRIN 325 MG TAB PO SCH (08:47)
[2016-06-08] MEDS: ATORVASTATIN 40 MG TAB PO SCH (08:47)
[2016-06-08] MEDS ORDERED: CHLORHEXIDINE GLUCONATE 15 ML CUP MUCOUS MEM SCH (09:00)
[2016-06-08 09:03] LABS: Glucose,Whole Blood 119 mg/dL (75-99)
[2016-06-08 10:25] LABS: Glucose,Whole Blood 114 mg/dL (75-99)
--- NOTE | 2016-06-08 10:36 | P.PN ---
<Patrice Lawson - Last Filed: 06/08/16 10:12> Progress Note - Text CV Surgery Nursing POD: #2, redo coronary artery bypass grafting 2 utilizing a left radial artery to the obtuse marginal branch and reverse saphenous vein graft to the posterior lateral branch, endoscopic harvesting of the left greater saphenous vein, transesophageal echocardiogram and epi-aortic ultrasonography Patient sedated on vent, follows commands appropriately during sedation holidays. Vital Signs: Afebrile, T-max 99.1F Vital Signs - 24 hr 06/07/16 06/07/16 06/07/16 10:30 11:00 11:15 Temperature Pulse Rate 67 65 65 Respiratory Rate Blood Pressure 92/60 110/61 O2 Sat by Pulse 94 L 95 Oximetry 06/07/16 06/07/16 06/07/16 11:28 11:30 12:00 Temperature 98.4 F Pulse Rate 72 73 69 Respiratory 18 Rate Blood Pressure 131/60 132/69 O2 Sat by Pulse 93 L 97 Oximetry 06/07/16 06/07/16 06/07/16 12:30 13:00 13:30 Temperature Pulse Rate 75 73 71 Respiratory 20 22 Rate Blood Pressure 120/68 121/65 131/61 O2 Sat by Pulse 89 L 94 L Oximetry 06/07/16 06/07/16 06/07/16 14:00 14:30 15:00 Temperature Pulse Rate 70 88 69 Respiratory Rate Blood Pressure 108/58 112/64 111/56 O2 Sat by Pulse 94 L 81 L 91 L Oximetry 06/07/16 06/07/16 06/07/16 15:30 16:00 16:30 Temperature 98.4 F Pulse Rate 68 74 90 Respiratory 22 Rate Blood Pressure 118/67 124/63 129/69 O2 Sat by Pulse 90 L 93 L 92 L Oximetry 06/07/16 06/07/16 06/07/16 16:41 17:00 18:00 Temperature Pulse Rate 69 78 84 Respiratory 22 20 Rate Blood Pressure 130/64 138/92 O2 Sat by Pulse 68 L 89 L Oximetry 06/07/16 06/07/16 06/07/16 19:00 20:00 20:47 Temperature 98.4 F Pulse Rate 86 81 80 Respiratory 18 18 Rate Blood Pressure 124/43 126/71 O2 Sat by Pulse 94 L 95 Oximetry 06/07/16 06/07/16 06/07/16 20:56 21:00 22:00 Temperature Pulse Rate 81 76 79 Respiratory 20 22 Rate Blood Pressure 129/76 133/73 O2 Sat by Pulse 93 L 93 L Oximetry 06/07/16 06/07/16 06/08/16 23:00 23:03 00:00 Temperature 98.4 F Pulse Rate 74 74 Respiratory 22 20 28 H Rate Blood Pressure 119/63 142/74 O2 Sat by Pulse 96 91 L Oximetry 06/08/16 06/08/16 06/08/16 01:00 02:00 03:00 Temperature Pulse Rate 66 66 73 Respiratory 26 H 24 32 H Rate Blood Pressure 116/61 120/69 149/81 O2 Sat by Pulse 95 94 L 86 L Oximetry 06/08/16 06/08/16 06/08/16 03:30 04:00 04:30 Temperature Pulse Rate 74 78 78 Respiratory Rate Blood Pressure 145/78 152/63 117/61 O2 Sat by Pulse 88 L 85 L 94 L Oximetry 06/08/16 06/08/16 06/08/16 05:00 05:30 06:00 Temperature 98.2 F Pulse Rate 67 71 66 Respiratory 20 20 20 Rate Blood Pressure 114/59 120/67 138/69 O2 Sat by Pulse 96 98 99 Oximetry 06/08/16 06/08/16 06/08/16 06:30 07:00 07:30 Temperature Pulse Rate 64 64 62 Respiratory 14 14 Rate Blood Pressure 140/73 119/67 120/59 O2 Sat by Pulse 98 99 99 Oximetry 06/08/16 06/08/16 06/08/16 07:40 07:47 08:00 Temperature 99.1 F Pulse Rate 59 L 62 62 Respiratory Rate Blood Pressure 109/66 O2 Sat by Pulse 97 Oximetry 06/08/16 06/08/16 08:30 09:00 Temperature Pulse Rate 63 63 Respiratory Rate Blood Pressure 108/67 117/65 O2 Sat by Pulse 98 96 Oximetry Labs: Short CBC 06/08/16 Range/Units 05:10 WBC 7.1 (3.8-10.6) k/uL Hgb 8.8 L (13.0-17.5) gm/dL Hct 26.5 L (39.0-53.0) % Plt Count 98 L (150-450) k/uL Neutrophils # 5.8 (1.3-7.7) k/uL BMP 06/07/16 06/07/16 06/08/16 15:50 22:55 05:10 Sodium 141 Potassium 3.7 3.9 4.2 Chloride 103 Carbon Dioxide 29 BUN 18 Creatinine 0.70 Glucose 121 H Calcium 8.2 L Liver Function 06/08/16 Range/Units 05:10 Total Bilirubin 0.8 (0.2-1.3) mg/dL AST 36 (17-59) U/L ALT 39 (21-72) U/L Alkaline Phosphatase 43 (38-126) U/L Albumin 3.4 L (3.5-5.0) g/dL IV Fluids: Propofol drip at 50 mcg/kg/m Insulin drip at 3 units per hour CVP: 8 mmHg Lungs: Patient is being mechanically ventilated vent settings are as follows: Assist control of 14, tidal volume 550, FiO2 60%, 5 of PEEP. Lungs essentially clear to auscultation. Chest x-ray shows no evidence of heart failure or pulmonary consolidation and is improved slightly over yesterday's chest x-ray. O2 sat: 96% Heart: S1S2, regular rate and rhythm, bedside telemetry shows a normal sinus rhythm Sternum stable, chest incision clean with silverlon dressing clean and dry. Right leg harvest site clean and dry, left arm harvest site clean and dry. Abdomen: Soft, Positive bowel sounds present in all 4 quadrants. CBGs: 119-151 milligrams per deciliter U/O: Adequate in Daly catheter to dependent drainage Chest Tubes: Mediastinal chest tube with no visible air leak and 10 mL of serous drainage in the last 8 hours. Pleural chest tubes without visible air leak 20 mL of serous drainage in the last 8 hours. 24 hr Total: Intake & Output 06/06/16 06/07/16 06/08/16 06/09/16 06:59 06:59 06:59 06:59 Intake Total 2803.341 889.393 182.617 Output Total 4305 3050 220 Balance -1501.659 -2160.607 -37.383 Weight 115.9 kg 116.8 kg Active Medications Acetaminophen/Hydrocodone Bitart (Sterling 5-325) 2 each PO Q4HR PRN PRN Reason: Severe Pain Last Admin: 06/07/16 23:15 Dose: 2 each Acetaminophen/Hydrocodone Bitart (Sterling 5-325) 1 each PO Q4HR PRN PRN Reason: Moderate Pain Albuterol/Ipratropium (Duoneb 0.5 Mg-3 Mg/3 Ml Soln) 3 ml INHALATION RT-QID [facility] Last Admin: 06/08/16 07:38 Dose: 3 ml Albuterol/Ipratropium (Duoneb 0.5 Mg-3 Mg/3 Ml Soln) 3 ml INHALATION RT-Q2H PRN PRN Reason: Shortness Of Breath Or Wheezing Aspirin (Aspirin) 325 mg PO DAILY [facility] Last Admin: 06/08/16 08:47 Dose: 325 mg Atorvastatin Calcium (Lipitor) 40 mg PO DAILY [facility] Last Admin: 06/08/16 08:47 Dose: 40 mg Benzocaine/Menthol (Cepacol Lozenge) 1 each MUCOUS MEM Q2H PRN PRN Reason: Sore Throat Bisacodyl (Dulcolax) 10 mg RECTAL DAILY PRN PRN Reason: Constipation Carvedilol (Coreg) 12.5 mg PO BID-W/MEALS [facility] Last Admin: 06/08/16 06:34 Dose: 12.5 mg Chlorhexidine Gluconate (Peridex) 15 ml MUCOUS MEM BID [facility] Last Admin: 06/08/16 08:46 Dose: 15 ml Clopidogrel Bisulfate (Plavix) 75 mg PO DAILY [facility] Last Admin: 06/08/16 08:47 Dose: 75 mg Diltiazem HCl (Cardizem Oral) 30 mg PO Q6HR [facility] Last Admin: 06/08/16 06:27 Dose: 30 mg Heparin Sodium (Porcine) (Heparin) 5,000 unit SQ Q8H [facility] Last Admin: 06/08/16 06:27 Dose: 5,000 unit Lactated Ringer's (Lactated Ringers) 1,000 mls @ 20 mls/hr IV .Q24H [facility] Last Admin: 06/08/16 05:05 Dose: 20 mls/hr Insulin Human Regular 100 unit (/ Sodium Chloride) 101 mls @ 0 mls/hr IV .Q0M [facility]; Per Protocol PRN Reason: Protocol Last Titration: 06/08/16 09:17 Dose: 3 units/hr, 3.03 mls/hr Propofol 500 mg/ IV Solution 50 mls @ 0 mls/hr IV .Q0M [facility]; Titrate PRN Reason: Protocol Last Titration: 06/08/16 09:18 Dose: 45 mcg/kg/min, 31.29 mls/hr Lorazepam (Ativan) 1 mg IV Q4HR PRN PRN Reason: Anxiety Magnesium Hydroxide (Milk Of Magnesia) 2,400 mg PO BID PRN PRN Reason: Constipation Miscellaneous Information (Magnesium Per Protocol) 1 each MISCELLANE DAILY PRN ; Protocol PRN Reason: Per Protocol Miscellaneous Information (Phosphorus Per Protocol) 1 each MISCELLANE DAILY PRN ; Protocol PRN Reason: Per Protocol Miscellaneous Information (Potassium Per Protocol) 1 each MISCELLANE DAILY PRN ; Protocol PRN Reason: Per Protocol Morphine Sulfate (Morphine Sulfate (Inj)) 2 mg IVP Q2H PRN PRN Reason: Severe Pain Last Admin: 06/08/16 04:57 Dose: 2 mg Mupirocin (Bactroban Oint) 1 applic NASAL BID [facility] Stop: 06/09/16 21:01 Last Admin: 06/08/16 08:47 Dose: 1 applic Ondansetron HCl (Zofran) 4 mg IVP Q6HR PRN PRN Reason: Nausea And Vomiting Pantoprazole Sodium (Protonix) 40 mg IVP DAILY [facility] Last Admin: 06/08/16 08:47 Dose: 40 mg Senna/Docusate Sodium (Senokot-S) 2 each PO HS [facility] Last Admin: 06/07/16 19:11 Dose: 2 each Sertraline HCl (Zoloft) 100 mg PO DAILY [facility] Last Admin: 06/08/16 08:47 Dose: 100 mg Sodium Chloride (Saline Flush) 10 ml IV BID [facility] Last Admin: 06/08/16 08:48 Dose: 10 ml Plan: Status post redo CABG postop day #2 Patient was reintubated this morning due to respiratory failure. Continue ventilatory support per pulmonary service. <Jhonny Zavala - Last Filed: 06/08/16 14:25> Progress Note - Text The patient was seen and examined. Apparently he became more hypoxic overnight and required reintubation early this morning. He is currently on 60% FiO2 and 5 of PEEP. His chest x-ray was reviewed. He appears to have some atelectasis in the left lower lobe. We will reevaluate in the morning to determine the possibility of extubation. We will give him another dose of Lasix today. Otherwise he is hemodynamic was stable. We will decrease his Coreg. He walked yesterday prior to his worsening pulmonary status. We will discontinue the mediastinal chest tube today and split the pleural drains.
[2016-06-08 11:04] LABS: Glucose,Whole Blood 119 mg/dL (75-99)
[2016-06-08 11:59] LABS: Glucose,Whole Blood 115 mg/dL (75-99)
[2016-06-08] MEDS: HYDROcodone/APAP 5-325MG 1 EACH TAB PO PRN (12:39)
[2016-06-08 13:10] LABS: Glucose,Whole Blood 111 mg/dL (75-99)
--- NOTE | 2016-06-08 14:19 | P.PN ---
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 Patient had recent cardiac catheterization, and Dr. Harmon was consulted for his abnormal cardiac cath. Today the patient underwent elective redo coronary artery bypass grafting 2 with left radial artery harvest and left radial artery to obtuse marginal coronary artery and endovascular vein harvest from the left greater saphenous vein with bypass of the posterior lateral branch postoperatively, patient was on mechanical ventilation, and I was asked to see him on consultation. Patient remains presently on mechanical ventilation, and I placed the patient on assist control mode after reviewing his ABG, I also reviewed his chest x-ray which was felt to be unremarkable except for some postoperative changes. Patient was reevaluated today on 06/07/2016, he is weaning however his ABG showed a marginal pO2 of 60, this was on a 40% FiO2. However the rest of the numbers look reasonable and the patient looked clinically comfortable based on my physical examination. Hence I will proceed to extubating the patient to a high flow nasal cannula, and we'll keep him on diuretics and bronchodilators. He received 1 dose of Lasix today. Chest x-ray today showed stable findings with cardiomegaly and mild vascular congestion. Some atelectasis as noted in the left base. Labs were reviewed, he has a relatively normal CBC and normal basic metabolic profile. Patient was reevaluated today on 06/08/2016, patient's overall pulmonary status worsened overnight, and around 3 AM the patient was placed on a non-rebreather his O2 saturation was noted to be in the low 80s and mid 80s, and I was notified by the nurse about his overall status. Hence I recommended immediate intubation and placement back on mechanical ventilation. Patient is now back on mechanical ventilation, and we were able to titrate the FiO2 down he is now on 60% FiO2. PEEP is 5 tidal volume is 550 and assist control rate is 14. CBC showed hemoglobin of 8.8 ABG showed a pO2 of 95 pCO2 of 36 pH of 7.38. Electrolytes are normal and renal profile is normal. Chest x-ray this morning showed no evidence of overt failure or consolidation, but there is some atelectasis involving the left lower lobe. Objective - Vital Signs Vital signs: Vital Signs Temp 99.1 F 06/08/16 08:00 Pulse 62 06/08/16 13:30 Resp 14 06/08/16 12:00 BP 112/58 06/08/16 13:30 Pulse Ox 95 06/08/16 13:30 Intake & Output 06/07/16 06/08/16 06/08/16 18:59 06:59 18:59 Intake Total 557.465 331.928 274.617 Output Total 1994 1055 380 Balance -1437.535 -723.072 -105.383 Weight 116.8 kg Intake: IV 187 139 161 CO/CI 30 Lactated Ringers 1,000 ml 100 140 @ 20 mls/hr IV .Q24H [facility] Rx#:[id number] ceFAZolin 2 gm In Sodium 100 Chloride 0.9% 100 ml @ 100 mls/hr IVPB Q8HR [facility] Rx#:[id number] pressure bag 57 39 21 Intake, IV Titration 370.465 132.928 113.617 Amount Insulin Regular 100 unit 70.465 12.928 48.949 In Sodium Chloride 0.9% 100 ml @ Per Protocol IV .Q0M [facility] Rx#:[id number] Lactated Ringers 1,000 ml 300 120 @ 20 mls/hr IV .Q24H [facility] Rx#:[id number] Propofol 500 mg In Empty 64.668 Bag 1 bag @ Titrate IV . Q0M [facility] Rx#:[id number] Oral 60 Output: Chest Tube Drainage 280 220 50 Bilateral Pleural Chest 170 90 20 Tube Mediastinal Chest Tube 110 130 30 Drainage 0 0 0 Left Wrist 0 0 0 Urine 1715 835 330 Other: Voiding Method Indwelling Catheter Indwelling Catheter Indwelling Catheter ABP, PAP, CO, CI - Last Documented Arterial Blood Pressure 94/49 Pulmonary Artery Pressure 47/18 Cardiac Output 8.7 Cardiac Index 4.3 - Exam Physical Exam: Revealed a 61-year-old white male on mechanical ventilation, endotracheal tube is intact. HEENT:[Neck is supple.] [No neck masses.] [No thyromegaly.] [No JVD.] Endotracheal tube is intact Chest: [Minimal crackles at the bases] Cardiac Exam: [Normal S1 and S2, no S3 gallop, no murmur. Positive pericardial rub] Abdomen: [Soft, nontender, no megaly, no rebound, no guarding, normal bowel sounds.] Extremities: [No clubbing, no edema, no cyanosis.] Neurological Exam: No focal neurologic deficit, patient is awake, and very appropriate. No focal deficit noted. - Labs CBC & Chem 7: 06/08/16 05:10 06/08/16 05:10 Labs: Abnormal Lab Results - Last 24 Hours (Table) 06/07/16 06/07/16 06/08/16 Range/Units 21:15 22:48 01:17 RBC (4.30-5.90) m/uL Hgb (13.0-17.5) gm/dL Hct (39.0-53.0) % Plt Count (150-450) k/uL Lymphocytes # (1.0-4.8) k/uL Glucose (74-99) mg/dL POC Glucose (mg/dL) 120 H 113 H 121 H (75-99) mg/dL Calcium (8.4-10.2) mg/dL Total Protein (6.3-8.2) g/dL Albumin (3.5-5.0) g/dL 06/08/16 06/08/16 06/08/16 Range/Units 02:53 05:05 05:10 RBC (4.30-5.90) m/uL Hgb (13.0-17.5) gm/dL Hct (39.0-53.0) % Plt Count (150-450) k/uL Lymphocytes # (1.0-4.8) k/uL Glucose 121 H (74-99) mg/dL POC Glucose (mg/dL) 121 H 132 H (75-99) mg/dL Calcium 8.2 L (8.4-10.2) mg/dL Total Protein 5.6 L (6.3-8.2) g/dL Albumin 3.4 L (3.5-5.0) g/dL 06/08/16 06/08/16 06/08/16 Range/Units 05:10 07:16 08:18 RBC 2.89 L (4.30-5.90) m/uL Hgb 8.8 L (13.0-17.5) gm/dL Hct 26.5 L (39.0-53.0) % Plt Count 98 L (150-450) k/uL Lymphocytes # 0.7 L (1.0-4.8) k/uL Glucose (74-99) mg/dL POC Glucose (mg/dL) 151 H 128 H (75-99) mg/dL Calcium (8.4-10.2) mg/dL Total Protein (6.3-8.2) g/dL Albumin (3.5-5.0) g/dL 06/08/16 06/08/16 06/08/16 Range/Units 09:02 10:24 11:01 RBC (4.30-5.90) m/uL Hgb (13.0-17.5) gm/dL Hct (39.0-53.0) % Plt Count (150-450) k/uL Lymphocytes # (1.0-4.8) k/uL Glucose (74-99) mg/dL POC Glucose (mg/dL) 119 H 114 H 119 H (75-99) mg/dL Calcium (8.4-10.2) mg/dL Total Protein (6.3-8.2) g/dL Albumin (3.5-5.0) g/dL 06/08/16 06/08/16 Range/Units 11:56 13:08 RBC (4.30-5.90) m/uL Hgb (13.0-17.5) gm/dL Hct (39.0-53.0) % Plt Count (150-450) k/uL Lymphocytes # (1.0-4.8) k/uL Glucose (74-99) mg/dL POC Glucose (mg/dL) 115 H 111 H (75-99) mg/dL Calcium (8.4-10.2) mg/dL Total Protein (6.3-8.2) g/dL Albumin (3.5-5.0) g/dL Assessment and Plan Plan: Impression: Status post CABG, redo 2 with left radial artery harvest and left radial artery to obtuse marginal coronary artery and endovascular vein harvest from the left greater saphenous vein with bypass of the posterior lateral branch postoperative day # 2 Postoperative respiratory failure, failed extubation, patient had to be reintubated and placed on mechanical ventilation, I believe it is mostly because of atelectasis involving the left lower lobe, and possibly some component of congestive heart failure yesterday. Hence the patient will remain on mechanical ventilation today, and we'll readdress weaning and extubation in the next 24 hours. Multiple comorbidities including history of hypertension, previous CABG, and history of hyperlipidemia. Recommendation: Keep on mechanical ventilation today, adjust the FiO2 accordingly, continue GI and DVT prophylaxis, possible extubation in the next 24 hours again. We'll continue to follow. Critical care time is 33 minutes. Time with Patient: Greater than 30
--- NOTE | 2016-06-08 14:47 | PN ---
A 61-year-old gentleman with history of CAD, status post CABG, today is postop day #2. Yesterday morning was extubated, was looking good. Developed progressively worsening shortness of breath and respiratory distress and had to be intubated last night. Currently intubated on vent, sedated. Cardiac-kelly he is stable, does not seem to be in heart failure, remains in stable rhythm. Blood pressure is well controlled. He is on aspirin, Lipitor, Coreg whose dose had been decreased, Plavix. On exam, comfortable at rest. Heart rate is 60, blood pressure 112/50, respiratory rate is 18. Chest exam reveals diminished air entry at the bases. Heart exam reveals first and second heart sounds. No gallop. Exam of the extremities did not reveal any edema. Peripheral pulses are felt. LABS: Potassium is 4.2. Creatinine is 0.7. Blood sugars are fairly well controlled. ASSESSMENT: 1. Coronary artery disease, status post redo coronary artery bypass grafting. 2. Respiratory failure. PLAN: Patient will continue with his current medical therapy.
[2016-06-08 15:03] LABS: Glucose,Whole Blood 107 mg/dL (75-99)
[2016-06-08] MEDS ORDERED: FUROSEMIDE 10 MG/ML 4 ML VIAL IV STA (16:09)
[2016-06-08] MEDS: CARVEDILOL 6.25 MG TAB PO SCH (16:40)
[2016-06-08 18:00] LABS: Glucose,Whole Blood 107 mg/dL (75-99)
[2016-06-08 20:01] LABS: Glucose,Whole Blood 106 mg/dL (75-99)
[2016-06-08] MEDS: LORazepam 2 MG/ML SYRINGE IV PRN (20:49)
[2016-06-08 20:57] LABS: Glucose,Whole Blood 103 mg/dL (75-99)
[2016-06-08] MEDS: SENNOSIDES-DOCUSATE SODIUM 1 EACH TAB PO SCH (21:01)
[2016-06-08 23:36] LABS: Glucose,Whole Blood 115 mg/dL (75-99)
[2016-06-09] MEDS: PROPOFOL 500 MG in EMPTY BAG 1 BAG IV SCH ×12 (00:27→22:31)
[2016-06-09] MEDS: DILTIAZEM ORAL 30 MG TAB PO SCH ×4 (00:28→17:31)
[2016-06-09 00:31] LABS: Glucose,Whole Blood 119 mg/dL (75-99)
[2016-06-09 02:06] LABS: Glucose,Whole Blood 104 mg/dL (75-99)
[2016-06-09 04:33] LABS: Glucose,Whole Blood 104 mg/dL (75-99)
[2016-06-09 05:04] LABS: Basophils % (A) 1 %; CH 31.1; CHCM 33.6; Eosinophils # (A) 0.2 k/uL (0-0.7); Eosinophils % (A) 4 %; HCT 23.9 % (39.0-53.0); HDW 3.49; HGB 8.3 gm/dL (13.0-17.5); Ionized Calcium 4.7 mg/dL (4.5-5.3); Luc # (Auto) 0.16; Luc % (Auto) 3; Lymphocytes # (A) 1.1 k/uL (1.0-4.8); Lymphocytes % (A) 23 %; MCH 32.4 pg (25.0-35.0); MCHC 34.8 g/dL (31.0-37.0); Mean Platelet Volume 7.7; Monocytes # (A) 0.2 k/uL (0-1.0); Monocytes % (A) 5 %; Neutrophils # (A) 3.1 k/uL (1.3-7.7); Neutrophils % (A) 64 %; Poikilocytosis Slight; RBC 2.57 m/uL (4.30-5.90); WBC 4.8 k/uL (3.8-10.6); WBC (Perox) 5.25
[2016-06-09 05:12] LABS: ALT 35 U/L (21-72); AST 23 U/L (17-59); Alkaline Phosphatase 52 U/L (38-126); Anion Gap 7 mmol/L; Blood Urea Nitrogen 18 mg/dL (9-20); Calcium 8.1 mg/dL (8.4-10.2); Carbon Dioxide 32 mmol/L (22-30); Chloride 103 mmol/L (98-107); Glucose 100 mg/dL (74-99); Non-African American GFR(MDRD) >60 (>60 ml/min/1.73 sqM); Potassium 3.6 mmol/L (3.5-5.1); Sodium 142 mmol/L (137-145); Total Bilirubin 0.7 mg/dL (0.2-1.3); Total Protein 5.6 g/dL (6.3-8.2)
[2016-06-09 06:11] LABS: Glucose,Whole Blood 117 mg/dL (75-99)
[2016-06-09] MEDS: HEPARIN SODIUM,PORCINE 5,000 UNIT/ML 1 ML VIAL SQ SCH ×3 (06:20→22:26)
--- NOTE | 2016-06-09 06:59 | XR ---
EXAMINATION TYPE: XR chest 1V portable DATE OF EXAM: 06/09/2016 6:41 AM CLINICAL HISTORY: Difficulty breathing progress study. Post open cardiac surgery. TECHNIQUE: Single AP portable upright view of the chest is obtained. COMPARISON: Chest x-ray from one day earlier FINDINGS: An endotracheal tube, orogastric tube, right internal jugular cordis sheath, and bilateral chest tubes are all redemonstrated. Post CABG changes with mediastinal clips and sternal wires is ag ain seen. There is persistent cardiomegaly with improving central vascular congestion. There is no new suspicio us focal airspace opacity, pleural effusion, or pneumothorax seen bilaterally. Osseous structures are intact. IMPRESSION: Overall stable findings, cardiomegaly with improving central vascular congestion, no ne w infiltrate is seen.
[2016-06-09] MEDS ORDERED: POTASSIUM CHLORIDE ORAL LIQUID 40 MEQ/30 ML CUP NG-TUBE SCH (07:00)
[2016-06-09] MEDS: IPRATROPIUM-ALBUTEROL 3 ML NEB INHALATION SCH ×4 (07:43→19:18)
[2016-06-09] MEDS: CARVEDILOL 6.25 MG TAB PO SCH ×2 (08:02→17:31)
[2016-06-09] MEDS: ASPIRIN 325 MG TAB PO SCH (08:03)
[2016-06-09] MEDS: CHLORHEXIDINE GLUCONATE 15 ML CUP MUCOUS MEM SCH ×2 (08:03→22:24)
[2016-06-09] MEDS: MUPIROCIN 2% OINT 22 GM TUBE NASAL SCH ×2 (08:03→22:25)
[2016-06-09] MEDS: PANTOPRAZOLE 40 MG/10 ML VIAL IVP SCH (08:03)
[2016-06-09] MEDS: ATORVASTATIN 40 MG TAB PO SCH (08:03)
[2016-06-09] MEDS: CLOPIDOGREL 75 MG TAB PO SCH (08:03)
[2016-06-09] MEDS: SERTRALINE 100 MG TAB PO SCH (08:04)
[2016-06-09] MEDS ORDERED: FUROSEMIDE 10 MG/ML 2 ML VIAL IV ONE ×2 (09:11→09:15)
[2016-06-09] MEDS: KETOROLAC 30 MG/ML 1 ML VIAL IVP SCH ×3 (09:12→22:24)
[2016-06-09 09:59] LABS: ABG Base Excess 3.5 mmol/L; ABG HCO3 27 mmol/L (21-25); ABG PCO2 39 mmHg (35-45); ABG PH 7.46 (7.35-7.45); ABG PO2 68 mmHg (83-108); ABG TCO2 28 mmol/L (19-24)
[2016-06-09 10:08] LABS: Glucose,Whole Blood 131 mg/dL (75-99)
--- NOTE | 2016-06-09 10:23 | P.PN ---
Subjective Principal diagnosis: Coronary artery disease of [place] and autologous grafts. POD #3 redo coronary artery bypass grafting 2 with left radial artery harvest and left radial artery to obtuse marginal coronary artery and endovascular vein harvest from the left greater saphenous vein with bypass of the posterior lateral branch. Patient currently sitting up in bed, still intubated, no apparent distress, sedated and sleepy but following commands. Objective - Vital Signs Vital signs: Vital Signs Temp 98.5 F 06/09/16 04:00 Pulse 66 06/09/16 07:58 Resp 16 06/09/16 07:00 BP 134/63 06/09/16 07:00 Pulse Ox 95 06/09/16 07:00 Intake & Output 06/08/16 06/09/16 06/09/16 18:59 06:59 18:59 Intake Total 522.406 713.595 40.036 Output Total 1125 1011 80 Balance -602.594 -297.405 -39.964 Weight 117.4 kg Intake: IV 276 276 23 Lactated Ringers 1,000 ml 240 240 20 @ 20 mls/hr IV .Q24H [facility] Rx#:[id number] pressure bag 36 36 3 Intake, IV Titration 246.406 362.595 17.036 Amount Insulin Regular 100 unit 48.949 In Sodium Chloride 0.9% 100 ml @ Per Protocol IV .Q0M [facility] Rx#:[id number] Propofol 500 mg In Empty 197.457 362.595 17.036 Bag 1 bag @ Titrate IV . Q0M [facility] Rx#:[id number] Other 75 Output: Chest Tube Drainage 120 100 10 Bilateral Pleural Chest 20 Tube Left Lateral Chest 40 30 0 Mediastinal Chest Tube 30 Right Lateral Chest 30 70 10 Drainage 0 30 0 Left Wrist 0 30 0 Urine 1005 881 70 Other: Voiding Method Indwelling Catheter Indwelling Catheter ABP, PAP, CO, CI - Last Documented Arterial Blood Pressure 94/49 Pulmonary Artery Pressure 47/18 Cardiac Output 8.7 Cardiac Index 4.3 - Constitutional General appearance: Present: cooperative, no acute distress - Respiratory Details: Lungs sounds diminished, crackles heard and left base. Respirations even and nonlabored, remains on mechanical ventilation at 50% FiO2. Right pleural chest tube to -20 cm wall suction, draining serosanguineous fluid, 40 mL in the last 8 hours, 60 mL last 24 hours. Left pleural chest tube to -20 cm wall suction, draining serosanguineous fluid, 10 mL the last 8 hours, 50 mL last 24 hours. - Cardiovascular Details: S1-S2 present. Sinus rhythm on telemetry. Chest stable. Pacemaker wires present but capped. Trace bilateral lower extremity edema present. Heart hugger in place. Teds, SCDs present. - Gastrointestinal Gastrointestinal Comment(s): Abdomen soft, nontender, nondistended. Active bowel sounds 4 quadrants. Patient nods head yes when asked if he is passing flatus. - Genitourinary Genitourinary Comment(s): Daly present draining clear yellow urine present. Output has been 30-80 mL per hour with 825 mL output between 5 PM and 7 PM last night after Lasix given. - Integumentary Integumentary Comment(s): Anterior chest wall vision covered with dry intact silver dressing. Left radial graft site well approximated with SAMEER present draining minimal serosanguineous fluid. Right EVH site well approximated. - Musculoskeletal Musculoskeletal: Present: strength equal bilaterally - Psychiatric Psychiatric: Present: A&O x's 3, appropriate affect, intact judgment & insight - Allied health notes Allied health notes reviewed: RT - Labs CBC & Chem 7: 06/09/16 04:40 06/09/16 04:40 Labs: Abnormal Lab Results - Last 24 Hours (Table) 06/08/16 06/08/16 06/08/16 Range/Units 08:18 09:02 10:24 RBC (4.30-5.90) m/uL Hgb (13.0-17.5) gm/dL Hct (39.0-53.0) % Plt Count (150-450) k/uL Carbon Dioxide (22-30) mmol/L Glucose (74-99) mg/dL POC Glucose (mg/dL) 128 H 119 H 114 H (75-99) mg/dL Calcium (8.4-10.2) mg/dL Total Protein (6.3-8.2) g/dL Albumin (3.5-5.0) g/dL 06/08/16 06/08/16 06/08/16 Range/Units 11:01 11:56 13:08 RBC (4.30-5.90) m/uL Hgb (13.0-17.5) gm/dL Hct (39.0-53.0) % Plt Count (150-450) k/uL Carbon Dioxide (22-30) mmol/L Glucose (74-99) mg/dL POC Glucose (mg/dL) 119 H 115 H 111 H (75-99) mg/dL Calcium (8.4-10.2) mg/dL Total Protein (6.3-8.2) g/dL Albumin (3.5-5.0) g/dL 06/08/16 06/08/16 06/08/16 Range/Units 15:01 17:59 20:00 RBC (4.30-5.90) m/uL Hgb (13.0-17.5) gm/dL Hct (39.0-53.0) % Plt Count (150-450) k/uL Carbon Dioxide (22-30) mmol/L Glucose (74-99) mg/dL POC Glucose (mg/dL) 107 H 107 H 106 H (75-99) mg/dL Calcium (8.4-10.2) mg/dL Total Protein (6.3-8.2) g/dL Albumin (3.5-5.0) g/dL 06/08/16 06/08/16 06/09/16 Range/Units 20:55 23:34 00:30 RBC (4.30-5.90) m/uL Hgb (13.0-17.5) gm/dL Hct (39.0-53.0) % Plt Count (150-450) k/uL Carbon Dioxide (22-30) mmol/L Glucose (74-99) mg/dL POC Glucose (mg/dL) 103 H 115 H 119 H (75-99) mg/dL Calcium (8.4-10.2) mg/dL Total Protein (6.3-8.2) g/dL Albumin (3.5-5.0) g/dL 06/09/16 06/09/16 06/09/16 Range/Units 02:04 04:32 04:40 RBC 2.57 L (4.30-5.90) m/uL Hgb 8.3 L (13.0-17.5) gm/dL Hct 23.9 L (39.0-53.0) % Plt Count 92 L (150-450) k/uL Carbon Dioxide (22-30) mmol/L Glucose (74-99) mg/dL POC Glucose (mg/dL) 104 H 104 H (75-99) mg/dL Calcium (8.4-10.2) mg/dL Total Protein (6.3-8.2) g/dL Albumin (3.5-5.0) g/dL 06/09/16 06/09/16 Range/Units 04:40 06:10 RBC (4.30-5.90) m/uL Hgb (13.0-17.5) gm/dL Hct (39.0-53.0) % Plt Count (150-450) k/uL Carbon Dioxide 32 H (22-30) mmol/L Glucose 100 H (74-99) mg/dL POC Glucose (mg/dL) 117 H (75-99) mg/dL Calcium 8.1 L (8.4-10.2) mg/dL Total Protein 5.6 L (6.3-8.2) g/dL Albumin 3.2 L (3.5-5.0) g/dL - Imaging and Cardiology Chest x-ray: report reviewed, image reviewed Assessment and Plan (1) Coronary artery disease Status: Acute (2) Hypertension Status: Acute (3) Hyperlipidemia Status: Acute (4) PAD (peripheral artery disease) Status: Acute (5) Postoperative acute respiratory failure Status: Acute Plan: 1. Continue aspirin, Plavix, Lipitor, heparin, Coreg. 2. Continue Cardizem, transition to long-acting Cardizem 120 mg daily when able to be transferred to 6 E. 3. Lasix ordered per pulmonary. 4. Wean from ventilator as tolerated, hopefully will DC vent support soon. 5. Tight glucose control with insulin drip, transition to SQ insulin per primary service when able. 6. Will DC chest tubes, SAMEER drain today. 7. GI DVT prophylaxis. 8. Once extubated, need to increase activity. PT to follow. Time with Patient: Greater than 30
[2016-06-09] MEDS: LORazepam 2 MG/ML SYRINGE IV PRN (10:35)
--- NOTE | 2016-06-09 12:09 | P.PN ---
Progress Note - Text Right and left pleural chest tubes dc'd without incident. [place] breath sounds equal. Xray ordered for AM.
--- NOTE | 2016-06-09 12:45 | PN ---
A 61-year-old gentleman with history of CAD, status post redo CABG. Patient was reintubated yesterday, remains on vent and still requiring significant respiratory support and not ready for weaning or extubation. Patient remains in sinus rhythm, hemodynamically stable. He is not in overt heart failure. The patient is on aspirin, Lipitor, Coreg, Plavix, Cardizem. Labs show a hemoglobin of 8.3. Potassium is 3.6. Creatinine is 0.7. ASSESSMENT: 1. Coronary artery disease, status post redo coronary artery bypass graft. 2. Respiratory failure. PLAN: He will continue with the current supportive care, received IV Lasix. His respiratory insufficiency mostly seems to be related to atelectasis, but chest x-ray did show some pulmonary congestion and patient has received IV Lasix. I am going to put him on a daily dose of Lasix at this time.
--- NOTE | 2016-06-09 13:05 | P.PN ---
Subjective Principal diagnosis: Status post CABG POD #3 redo coronary artery bypass grafting 2 with left radial artery harvest and left radial artery to obtuse marginal coronary artery and endovascular vein harvest from the left greater saphenous vein with bypass of the posterior lateral branch. Patient was reevaluated today on 06/09/2016, attempted to wean and extubate the patient, however his pO2 remained very marginal on 50% FiO2 with a PEEP of 5. Chest x-ray continues to show some atelectasis mostly at the left base, hence I felt that the patient is not quite ready for weaning at this point. I did place the patient on a trial of pressure support of 8 and CPAP, but he was noted within half an hour to be quite tachypneic, and his O2 saturation was very marginal in the low 90s in spite of being at 50% FiO2. ABG showed a pO2 of 68 at best, hence I recommended one dose of Lasix 40 mg IV push, and held back on further weaning. I would place the patient again on assist control mode of mechanical ventilation, and we'll likely address weaning again later today or in a.m. The rest of the labs were reviewed, hemoglobin is 8.3 the PEEP status 4.8. Basic metabolic profile is relatively unremarkable. Objective - Vital Signs Vital signs: Vital Signs Temp 98.8 F 06/09/16 12:00 Pulse 57 L 06/09/16 12:00 Resp 16 06/09/16 08:00 BP 132/63 06/09/16 12:00 Pulse Ox 96 06/09/16 12:00 Intake & Output 06/08/16 06/09/16 06/09/16 18:59 06:59 18:59 Intake Total 522.406 713.595 215.761 Output Total 1125 1011 460 Balance -602.594 -297.405 -244.239 Weight 117.4 kg 117.4 kg Intake: IV 276 276 138 Lactated Ringers 1,000 ml 240 240 120 @ 20 mls/hr IV .Q24H [facility] Rx#:[id number] pressure bag 36 36 18 Intake, IV Titration 246.406 362.595 77.761 Amount Insulin Regular 100 unit 48.949 In Sodium Chloride 0.9% 100 ml @ Per Protocol IV .Q0M [facility] Rx#:[id number] Propofol 500 mg In Empty 197.457 362.595 77.761 Bag 1 bag @ Titrate IV . Q0M [facility] Rx#:[id number] Other 75 Output: Chest Tube Drainage 120 100 30 Bilateral Pleural Chest 20 Tube Left Lateral Chest 40 30 0 Mediastinal Chest Tube 30 Right Lateral Chest 30 70 30 Drainage 0 30 0 Left Wrist 0 30 0 Urine 1005 881 430 Other: Voiding Method Indwelling Catheter Indwelling Catheter Indwelling Catheter ABP, PAP, CO, CI - Last Documented Arterial Blood Pressure 94/49 Pulmonary Artery Pressure 47/18 Cardiac Output 8.7 Cardiac Index 4.3 - Exam Physical Exam: Revealed a 61-year-old white male on mechanical ventilation, endotracheal tube is intact. HEENT:[Neck is supple.] [No neck masses.] [No thyromegaly.] [No JVD.] Endotracheal tube is intact Chest: [Minimal crackles at the bases] Cardiac Exam: [Normal S1 and S2, no S3 gallop, no murmur. Positive pericardial rub] Abdomen: [Soft, nontender, no megaly, no rebound, no guarding, normal bowel sounds.] Extremities: [No clubbing, no edema, no cyanosis.] Neurological Exam: No focal neurologic deficit, patient is awake, and very appropriate. No focal deficit noted. - Labs CBC & Chem 7: 06/09/16 04:40 06/09/16 04:40 Labs: Abnormal Lab Results - Last 24 Hours (Table) 06/08/16 06/08/16 06/08/16 Range/Units 13:08 15:01 17:59 RBC (4.30-5.90) m/uL Hgb (13.0-17.5) gm/dL Hct (39.0-53.0) % Plt Count (150-450) k/uL ABG pH (7.35-7.45) ABG pO2 (83-108) mmHg ABG HCO3 (21-25) mmol/L ABG Total CO2 (19-24) mmol/L Carbon Dioxide (22-30) mmol/L Glucose (74-99) mg/dL POC Glucose (mg/dL) 111 H 107 H 107 H (75-99) mg/dL Calcium (8.4-10.2) mg/dL Total Protein (6.3-8.2) g/dL Albumin (3.5-5.0) g/dL 0206/08/16 06/08/16 Range/Units 20:00 20:55 23:34 RBC (4.30-5.90) m/uL Hgb (13.0-17.5) gm/dL Hct (39.0-53.0) % Plt Count (150-450) k/uL ABG pH (7.35-7.45) ABG pO2 (83-108) mmHg ABG HCO3 (21-25) mmol/L ABG Total CO2 (19-24) mmol/L Carbon Dioxide (22-30) mmol/L Glucose (74-99) mg/dL POC Glucose (mg/dL) 106 H 103 H 115 H (75-99) mg/dL Calcium (8.4-10.2) mg/dL Total Protein (6.3-8.2) g/dL Albumin (3.5-5.0) g/dL 06/09/16 06/09/16 06/09/16 Range/Units 00:30 02:04 04:32 RBC (4.30-5.90) m/uL Hgb (13.0-17.5) gm/dL Hct (39.0-53.0) % Plt Count (150-450) k/uL ABG pH (7.35-7.45) ABG pO2 (83-108) mmHg ABG HCO3 (21-25) mmol/L ABG Total CO2 (19-24) mmol/L Carbon Dioxide (22-30) mmol/L Glucose (74-99) mg/dL POC Glucose (mg/dL) 119 H 104 H 104 H (75-99) mg/dL Calcium (8.4-10.2) mg/dL Total Protein (6.3-8.2) g/dL Albumin (3.5-5.0) g/dL 06/09/16 06/09/16 06/09/16 Range/Units 04:40 04:40 06:10 RBC 2.57 L (4.30-5.90) m/uL Hgb 8.3 L (13.0-17.5) gm/dL Hct 23.9 L (39.0-53.0) % Plt Count 92 L (150-450) k/uL ABG pH (7.35-7.45) ABG pO2 (83-108) mmHg ABG HCO3 (21-25) mmol/L ABG Total CO2 (19-24) mmol/L Carbon Dioxide 32 H (22-30) mmol/L Glucose 100 H (74-99) mg/dL POC Glucose (mg/dL) 117 H (75-99) mg/dL Calcium 8.1 L (8.4-10.2) mg/dL Total Protein 5.6 L (6.3-8.2) g/dL Albumin 3.2 L (3.5-5.0) g/dL 06/09/16 06/09/16 Range/Units 09:43 10:05 RBC (4.30-5.90) m/uL Hgb (13.0-17.5) gm/dL Hct (39.0-53.0) % Plt Count (150-450) k/uL ABG pH 7.46 H (7.35-7.45) ABG pO2 68 L (83-108) mmHg ABG HCO3 27 H (21-25) mmol/L ABG Total CO2 28 H (19-24) mmol/L Carbon Dioxide (22-30) mmol/L Glucose (74-99) mg/dL POC Glucose (mg/dL) 131 H (75-99) mg/dL Calcium (8.4-10.2) mg/dL Total Protein (6.3-8.2) g/dL Albumin (3.5-5.0) g/dL Assessment and Plan Plan: Impression: Status post CABG, redo 2 with left radial artery harvest and left radial artery to obtuse marginal coronary artery and endovascular vein harvest from the left greater saphenous vein with bypass of the posterior lateral branch postoperative day # 3 Postoperative respiratory failure, failed extubation, patient had to be reintubated and placed on mechanical ventilation, I believe it is mostly because of atelectasis involving the left lower lobe, and possibly some component of congestive heart failure yesterday. Hence the patient will remain on mechanical ventilation today, and we'll readdress weaning and extubation in the next 24 hours. Patient was given a trial of weaning today on 06/09/2016, and obviously his pO2 remains marginal and he is almost there yet but not quite ready for extubation at this point. Multiple comorbidities including history of hypertension, previous CABG, and history of hyperlipidemia. Recommendation: Keep on mechanical ventilation today, adjust the FiO2 accordingly, continue GI and DVT prophylaxis, possible extubation in the next 24 hours again. We'll continue to follow. Critical care time is 33 minutes. Time with Patient: Greater than 30
[2016-06-09 13:42] LABS: Glucose,Whole Blood 116 mg/dL (75-99)
[2016-06-09] MEDS: LACTATED RINGERS 1,000 ML IV SCH (15:05)
[2016-06-09 16:29] LABS: Glucose,Whole Blood 106 mg/dL (75-99)
[2016-06-09 18:11] LABS: Glucose,Whole Blood 101 mg/dL (75-99)
[2016-06-09 20:02] LABS: Glucose,Whole Blood 105 mg/dL (75-99)
[2016-06-09] MEDS ORDERED: PROPOFOL 50 ML IV ONE (20:31)
[2016-06-09 22:09] LABS: Glucose,Whole Blood 111 mg/dL (75-99)
[2016-06-09] MEDS: SENNOSIDES-DOCUSATE SODIUM 1 EACH TAB PO SCH (22:25)
[2016-06-09 22:26] LABS: Magnesium 2.1 mg/dL (1.6-2.3); Potassium 3.9 mmol/L (3.5-5.1)
[2016-06-10] MEDS: MORPHINE SULFATE 2 MG/ML SYRINGE IVP PRN (00:08)
[2016-06-10] MEDS: DILTIAZEM ORAL 30 MG TAB PO SCH ×5 (00:09→23:52)
[2016-06-10 00:16] LABS: Glucose,Whole Blood 128 mg/dL (75-99)
[2016-06-10] MEDS: PROPOFOL 500 MG in EMPTY BAG 1 BAG IV SCH ×6 (00:19→07:50)
[2016-06-10] MEDS: LORazepam 2 MG/ML SYRINGE IV PRN (01:04)
[2016-06-10 02:11] LABS: Glucose,Whole Blood 115 mg/dL (75-99)
[2016-06-10] MEDS: KETOROLAC 30 MG/ML 1 ML VIAL IVP SCH (05:08)
[2016-06-10 05:11] LABS: Glucose,Whole Blood 139 mg/dL (75-99)
[2016-06-10 05:38] LABS: Basophils % (A) 1 %; CH 30.8; CHCM 33.2; Eosinophils # (A) 0.2 k/uL (0-0.7); Eosinophils % (A) 5 %; HCT 23.7 % (39.0-53.0); HDW 3.48; HGB 7.9 gm/dL (13.0-17.5); Luc # (Auto) 0.14; Luc % (Auto) 3; Lymphocytes # (A) 0.6 k/uL (1.0-4.8); Lymphocytes % (A) 14 %; MCH 31.3 pg (25.0-35.0); MCHC 33.5 g/dL (31.0-37.0); MCV 93.4 fL (80.0-100.0); Mean Platelet Volume 8.7; Monocytes # (A) 0.3 k/uL (0-1.0); Monocytes % (A) 6 %; Neutrophils # (A) 3.2 k/uL (1.3-7.7); Neutrophils % (A) 71 %; Poikilocytosis Slight; RBC 2.54 m/uL (4.30-5.90); WBC 4.5 k/uL (3.8-10.6); WBC (Perox) 4.36
[2016-06-10 05:42] LABS: Ionized Calcium 4.9 mg/dL (4.5-5.3)
[2016-06-10 05:50] LABS: ALT 38 U/L (21-72); AST 23 U/L (17-59); Alkaline Phosphatase 75 U/L (38-126); Anion Gap 11 mmol/L; Blood Urea Nitrogen 24 mg/dL (9-20); Calcium 8.3 mg/dL (8.4-10.2); Carbon Dioxide 30 mmol/L (22-30); Chloride 106 mmol/L (98-107); Glucose 137 mg/dL (74-99); Non-African American GFR(MDRD) >60 (>60 ml/min/1.73 sqM); Potassium 3.8 mmol/L (3.5-5.1); Sodium 147 mmol/L (137-145); Total Bilirubin 0.7 mg/dL (0.2-1.3); Total Protein 5.6 g/dL (6.3-8.2)
[2016-06-10 06:07] LABS: Glucose,Whole Blood 142 mg/dL (75-99)
[2016-06-10] MEDS: HEPARIN SODIUM,PORCINE 5,000 UNIT/ML 1 ML VIAL SQ SCH ×3 (06:55→23:52)
[2016-06-10] MEDS ORDERED: Potassium Replacement Protocol 1 EACH MISC MISCELLANE PRN (07:37)
--- NOTE | 2016-06-10 07:40 | XR ---
EXAMINATION TYPE: XR chest 1V portable DATE OF EXAM: 06/10/2016 6:45 AM COMPARISON: 06/09/2016 INDICATION: Tube placement TECHNIQUE: Single frontal view of the chest is obtained. FINDINGS: The heart size is prominent. The pulmonary vasculature is prominent. There is mild increased lung markings bilaterally. This greater in the left lung base. Correlate for atelectasis or pneumonia. An endotracheal tube is present with tip above the yg. Nasogastric tube transverses the thorax. E KG leads overlie the left upper abdomen. IMPRESSION: 1. Correlate for congestive heart failure. 2. Left lower lobe infiltrate. Pneumonia or atypical pulmonary edema considered. 3. Lines and catheters discussed above.
[2016-06-10] MEDS: IPRATROPIUM-ALBUTEROL 3 ML NEB INHALATION SCH ×4 (07:45→21:17)
--- NOTE | 2016-06-10 07:45 | P.PN ---
<Karin Gautam - Last Filed: 06/10/16 07:36> Subjective Principal diagnosis: Coronary artery disease of [place] and autologous grafts. POD #4 redo coronary artery bypass grafting 2 with left radial artery harvest and left radial artery to obtuse marginal coronary artery and endovascular vein harvest from the left greater saphenous vein with bypass of the posterior lateral branch. Patient currently sitting up in bed, still intubated, no apparent distress, sedated and sleepy but following commands. Objective - Vital Signs Vital signs: Vital Signs Temp 98.5 F 06/10/16 04:00 Pulse 66 06/10/16 07:00 Resp 14 06/10/16 07:00 BP 136/74 06/10/16 07:00 Pulse Ox 98 06/10/16 07:00 Intake & Output 06/09/16 06/10/16 06/10/16 18:59 06:59 18:59 Intake Total 503.761 869.435 Output Total 685 555 Balance -181.239 314.435 Weight 117.4 kg 110.7 kg Intake: IV 276 276 Lactated Ringers 1,000 ml 240 240 @ 20 mls/hr IV .Q24H [facility] Rx#:[id number] pressure bag 36 36 Intake, IV Titration 227.761 253.435 Amount Insulin Regular 100 unit 39.123 In Sodium Chloride 0.9% 100 ml @ Per Protocol IV .Q0M [facility] Rx#:[id number] Propofol 500 mg In Empty 227.761 214.312 Bag 1 bag @ Titrate IV . Q0M [facility] Rx#:[id number] Tube Feeding 250 Other 90 Output: Chest Tube Drainage 30 Left Lateral Chest 0 Right Lateral Chest 30 Drainage 0 Left Wrist 0 Urine 655 555 Other: Voiding Method Indwelling Catheter Indwelling Catheter ABP, PAP, CO, CI - Last Documented Arterial Blood Pressure 94/49 Pulmonary Artery Pressure 47/18 Cardiac Output 8.7 Cardiac Index 4.3 - Constitutional General appearance: Present: cooperative, no acute distress, obese - Respiratory Details: Lungs sounds diminished, with coarse breath sounds left base. Respirations even and nonlabored, remains on mechanical ventilation 50% FiO2 with a PEEP of 8. - Cardiovascular Details: S1, S2 present. Regular rate and rhythm, sinus rhythm on telemetry. Chest stable. Heart hugger in place. AV epicardial pacemaker wires present but capped. Trace bilateral lower extremity edema present. Teds, SCDs in place. - Gastrointestinal Gastrointestinal Comment(s): Abdomen soft, nontender, nondistended. Active bowel sounds 4 quadrants. Currently receiving tube feedings, Vital at 30 mL/h. No bowel movement documented since surgery. - Genitourinary Genitourinary Comment(s): Daly present draining clear yellow urine. - Integumentary Integumentary Comment(s): Anterior chest incision covered with dry intact silver dressing. Left radial graft site well approximated. Right EVH site well approximated. - Psychiatric Psychiatric Comment(s): Currently sedated on the ventilator. - Allied health notes Allied health notes reviewed: nursing - Labs CBC & Chem 7: 06/10/16 05:10 06/10/16 05:10 Labs: Abnormal Lab Results - Last 24 Hours (Table) 06/09/16 06/09/16 06/09/16 Range/Units 09:43 10:05 13:40 RBC (4.30-5.90) m/uL Hgb (13.0-17.5) gm/dL Hct (39.0-53.0) % Plt Count (150-450) k/uL Lymphocytes # (1.0-4.8) k/uL ABG pH 7.46 H (7.35-7.45) ABG pO2 68 L (83-108) mmHg ABG HCO3 27 H (21-25) mmol/L ABG Total CO2 28 H (19-24) mmol/L Sodium (137-145) mmol/L BUN (9-20) mg/dL Glucose (74-99) mg/dL POC Glucose (mg/dL) 131 H 116 H (75-99) mg/dL Calcium (8.4-10.2) mg/dL Total Protein (6.3-8.2) g/dL Albumin (3.5-5.0) g/dL 06/09/16 06/09/16 06/09/16 Range/Units 16:26 18:09 20:00 RBC (4.30-5.90) m/uL Hgb (13.0-17.5) gm/dL Hct (39.0-53.0) % Plt Count (150-450) k/uL Lymphocytes # (1.0-4.8) k/uL ABG pH (7.35-7.45) ABG pO2 (83-108) mmHg ABG HCO3 (21-25) mmol/L ABG Total CO2 (19-24) mmol/L Sodium (137-145) mmol/L BUN (9-20) mg/dL Glucose (74-99) mg/dL POC Glucose (mg/dL) 106 H 101 H 105 H (75-99) mg/dL Calcium (8.4-10.2) mg/dL Total Protein (6.3-8.2) g/dL Albumin (3.5-5.0) g/dL 06/09/16 06/10/16 06/10/16 Range/Units 22:06 00:13 02:10 RBC (4.30-5.90) m/uL Hgb (13.0-17.5) gm/dL Hct (39.0-53.0) % Plt Count (150-450) k/uL Lymphocytes # (1.0-4.8) k/uL ABG pH (7.35-7.45) ABG pO2 (83-108) mmHg ABG HCO3 (21-25) mmol/L ABG Total CO2 (19-24) mmol/L Sodium (137-145) mmol/L BUN (9-20) mg/dL Glucose (74-99) mg/dL POC Glucose (mg/dL) 111 H 128 H 115 H (75-99) mg/dL Calcium (8.4-10.2) mg/dL Total Protein (6.3-8.2) g/dL Albumin (3.5-5.0) g/dL 06/10/16 06/10/16 06/10/16 Range/Units 05:07 05:10 05:10 RBC 2.54 L (4.30-5.90) m/uL Hgb 7.9 L (13.0-17.5) gm/dL Hct 23.7 L (39.0-53.0) % Plt Count 113 L (150-450) k/uL Lymphocytes # 0.6 L (1.0-4.8) k/uL ABG pH (7.35-7.45) ABG pO2 (83-108) mmHg ABG HCO3 (21-25) mmol/L ABG Total CO2 (19-24) mmol/L Sodium 147 H (137-145) mmol/L BUN 24 H (9-20) mg/dL Glucose 137 H (74-99) mg/dL POC Glucose (mg/dL) 139 H (75-99) mg/dL Calcium 8.3 L (8.4-10.2) mg/dL Total Protein 5.6 L (6.3-8.2) g/dL Albumin 3.1 L (3.5-5.0) g/dL 06/10/16 Range/Units 06:04 RBC (4.30-5.90) m/uL Hgb (13.0-17.5) gm/dL Hct (39.0-53.0) % Plt Count (150-450) k/uL Lymphocytes # (1.0-4.8) k/uL ABG pH (7.35-7.45) ABG pO2 (83-108) mmHg ABG HCO3 (21-25) mmol/L ABG Total CO2 (19-24) mmol/L Sodium (137-145) mmol/L BUN (9-20) mg/dL Glucose (74-99) mg/dL POC Glucose (mg/dL) 142 H (75-99) mg/dL Calcium (8.4-10.2) mg/dL Total Protein (6.3-8.2) g/dL Albumin (3.5-5.0) g/dL - Imaging and Cardiology Chest x-ray: report reviewed Assessment and Plan (1) Coronary artery disease Status: Acute (2) Hypertension Status: Acute (3) Hyperlipidemia Status: Acute (4) PAD (peripheral artery disease) Status: Acute (5) Postoperative acute respiratory failure Status: Acute Plan: 1. Continue aspirin, Plavix, Lipitor, heparin, Coreg. 2. Continue Cardizem, transition to long-acting Cardizem 120 mg daily when extubated. 3. Lasix ordered per pulmonary. 4. Wean from ventilator as tolerated, hopefully will DC vent support soon. 5. Tight glucose control with insulin drip, transition to SQ insulin per primary service when able. 6. Continue tube feedings while intubated. 7. GI DVT prophylaxis. 8. Once extubated, need to increase activity. PT to follow. Time with Patient: Greater than 30 <Jhonny Zavala - Last Filed: 06/10/16 12:00> Objective - Vital Signs Vital signs: Vital Signs Temp 98.5 F 06/10/16 08:00 Pulse 70 06/10/16 11:41 Resp 14 06/10/16 07:00 BP 117/61 06/10/16 11:00 Pulse Ox 92 L 06/10/16 11:00 Intake & Output 06/09/16 06/10/16 06/10/16 18:59 06:59 18:59 Intake Total 503.761 869.435 202.078 Output Total 685 555 610 Balance -181.239 314.435 -407.922 Weight 117.4 kg 110.7 kg Intake: IV 276 276 115 Lactated Ringers 1,000 ml 240 240 100 @ 20 mls/hr IV .Q24H [facility] Rx#:[id number] pressure bag 36 36 15 Intake, IV Titration 227.761 253.435 87.078 Amount Insulin Regular 100 unit 39.123 In Sodium Chloride 0.9% 100 ml @ Per Protocol IV .Q0M [facility] Rx#:[id number] Propofol 500 mg In Empty 227.761 214.312 87.078 Bag 1 bag @ Titrate IV . Q0M [facility] Rx#:[id number] Tube Feeding 250 Other 90 Output: Chest Tube Drainage 30 Left Lateral Chest 0 Right Lateral Chest 30 Drainage 0 Left Wrist 0 Urine 655 555 610 Other: Voiding Method Indwelling Catheter Indwelling Catheter ABP, PAP, CO, CI - Last Documented Arterial Blood Pressure 94/49 Pulmonary Artery Pressure 47/18 Cardiac Output 8.7 Cardiac Index 4.3 - Labs CBC & Chem 7: 06/10/16 05:10 06/10/16 05:10 Labs: Abnormal Lab Results - Last 24 Hours (Table) 06/09/16 06/09/16 06/09/16 Range/Units 13:40 16:26 18:09 RBC (4.30-5.90) m/uL Hgb (13.0-17.5) gm/dL Hct (39.0-53.0) % Plt Count (150-450) k/uL Lymphocytes # (1.0-4.8) k/uL ABG pO2 (83-108) mmHg ABG HCO3 (21-25) mmol/L ABG Total CO2 (19-24) mmol/L ABG O2 Saturation (94-97) % Sodium (137-145) mmol/L BUN (9-20) mg/dL Glucose (74-99) mg/dL POC Glucose (mg/dL) 116 H 106 H 101 H (75-99) mg/dL Calcium (8.4-10.2) mg/dL Total Protein (6.3-8.2) g/dL Albumin (3.5-5.0) g/dL 06/09/16 06/09/16 06/10/16 Range/Units 20:00 22:06 00:13 RBC (4.30-5.90) m/uL Hgb (13.0-17.5) gm/dL Hct (39.0-53.0) % Plt Count (150-450) k/uL Lymphocytes # (1.0-4.8) k/uL ABG pO2 (83-108) mmHg ABG HCO3 (21-25) mmol/L ABG Total CO2 (19-24) mmol/L ABG O2 Saturation (94-97) % Sodium (137-145) mmol/L BUN (9-20) mg/dL Glucose (74-99) mg/dL POC Glucose (mg/dL) 105 H 111 H 128 H (75-99) mg/dL Calcium (8.4-10.2) mg/dL Total Protein (6.3-8.2) g/dL Albumin (3.5-5.0) g/dL 06/10/16 06/10/16 06/10/16 Range/Units 02:10 05:07 05:10 RBC 2.54 L (4.30-5.90) m/uL Hgb 7.9 L (13.0-17.5) gm/dL Hct 23.7 L (39.0-53.0) % Plt Count 113 L (150-450) k/uL Lymphocytes # 0.6 L (1.0-4.8) k/uL ABG pO2 (83-108) mmHg ABG HCO3 (21-25) mmol/L ABG Total CO2 (19-24) mmol/L ABG O2 Saturation (94-97) % Sodium (137-145) mmol/L BUN (9-20) mg/dL Glucose (74-99) mg/dL POC Glucose (mg/dL) 115 H 139 H (75-99) mg/dL Calcium (8.4-10.2) mg/dL Total Protein (6.3-8.2) g/dL Albumin (3.5-5.0) g/dL 06/10/16 06/10/16 06/10/16 Range/Units 05:10 06:04 08:41 RBC (4.30-5.90) m/uL Hgb (13.0-17.5) gm/dL Hct (39.0-53.0) % Plt Count (150-450) k/uL Lymphocytes # (1.0-4.8) k/uL ABG pO2 (83-108) mmHg ABG HCO3 (21-25) mmol/L ABG Total CO2 (19-24) mmol/L ABG O2 Saturation (94-97) % Sodium 147 H (137-145) mmol/L BUN 24 H (9-20) mg/dL Glucose 137 H (74-99) mg/dL POC Glucose (mg/dL) 142 H 122 H (75-99) mg/dL Calcium 8.3 L (8.4-10.2) mg/dL Total Protein 5.6 L (6.3-8.2) g/dL Albumin 3.1 L (3.5-5.0) g/dL 06/10/16 06/10/16 06/10/16 Range/Units 08:54 10:04 10:19 RBC (4.30-5.90) m/uL Hgb (13.0-17.5) gm/dL Hct (39.0-53.0) % Plt Count (150-450) k/uL Lymphocytes # (1.0-4.8) k/uL ABG pO2 119 H (83-108) mmHg ABG HCO3 28 H 29 H (21-25) mmol/L ABG Total CO2 29 H 30 H (19-24) mmol/L ABG O2 Saturation 99.0 H 98.0 H (94-97) % Sodium (137-145) mmol/L BUN (9-20) mg/dL Glucose (74-99) mg/dL POC Glucose (mg/dL) 138 H (75-99) mg/dL Calcium (8.4-10.2) mg/dL Total Protein (6.3-8.2) g/dL Albumin (3.5-5.0) g/dL Assessment and Plan Plan: The patient was seen and examined. I agree with the above assessment and plan. The patient was extubated this morning. He currently appears to be comfortable on facemask. He remains hemodynamically stable. He is currently receiving daily Lasix and has had good urine output. His laboratory studies appear to be unremarkable. His chest x-ray was reviewed. His pacing wires were removed without incident. We will get him up to a chair later this afternoon.
[2016-06-10] MEDS ORDERED: POTASSIUM CHLORIDE ORAL LIQUID 40 MEQ/30 ML CUP NG-TUBE SCH (08:00)
[2016-06-10 08:42] LABS: Glucose,Whole Blood 122 mg/dL (75-99)
[2016-06-10] MEDS: CHLORHEXIDINE GLUCONATE 15 ML CUP MUCOUS MEM SCH (08:46)
[2016-06-10] MEDS: PANTOPRAZOLE 40 MG/10 ML VIAL IVP SCH (08:46)
[2016-06-10] MEDS: CARVEDILOL 6.25 MG TAB PO SCH ×2 (08:46→17:19)
[2016-06-10] MEDS: ASPIRIN 325 MG TAB PO SCH (08:46)
[2016-06-10] MEDS: ATORVASTATIN 40 MG TAB PO SCH (08:47)
[2016-06-10] MEDS: CLOPIDOGREL 75 MG TAB PO SCH (08:47)
[2016-06-10] MEDS: SERTRALINE 100 MG TAB PO SCH (08:47)
[2016-06-10] MEDS: FUROSEMIDE 10 MG/ML 2 ML VIAL IV SCH (08:47)
[2016-06-10 09:04] LABS: ABG Base Excess 3.7 mmol/L; ABG HCO3 28 mmol/L (21-25); ABG PCO2 44 mmHg (35-45); ABG PH 7.42 (7.35-7.45); ABG PO2 119 mmHg (83-108); ABG TCO2 29 mmol/L (19-24)
--- NOTE | 2016-06-10 09:21 | XR ---
EXAMINATION TYPE: XR chest 1V DATE OF EXAM: 06/10/2016 9:15 AM HISTORY: Ventilatory progress. REFERENCE: Previous study dated 06/10/2016. FINDINGS: There has been a midline sternotomy. The patient's ET tube and NG tube remain in place, unchanged in appearance. The heart is enlarged. Pulmonary vasculature has improved. Interstitial change has improved. There is a 2.7 cm nodular density projecting over the right chest. There is left basilar airspace disease. Th ere is a small, left effusion. IMPRESSION: 1. IMPROVING CHANGES OF CONGESTIVE HEART FAILURE. 2. CARDIOMEGALY. 3. SMALL LEFT EFFUSION. 4. 2.7 CM NODULAR OPACITY PROJECTING OVER THE RIGHT MID CHEST. WHEN THE PATIENT'S CLINICAL CONDITION ALLOWS, A CT SCAN OF THE CHEST WOULD BE SUGGESTED.
[2016-06-10] MEDS: INSULIN REGULAR 100 UNIT in SODIUM CHLORIDE 0.9% 100 ML IV SCH (09:23)
[2016-06-10 10:13] LABS: ABG PCO2 42 mmHg (35-45); ABG PH 7.45 (7.35-7.45)
[2016-06-10 10:14] LABS: ABG Base Excess 4.9 mmol/L; ABG HCO3 29 mmol/L (21-25); ABG PO2 98 mmHg (83-108); ABG TCO2 30 mmol/L (19-24)
[2016-06-10 10:20] LABS: Glucose,Whole Blood 138 mg/dL (75-99)
[2016-06-10 12:05] LABS: Glucose,Whole Blood 124 mg/dL (75-99)
[2016-06-10 14:43] LABS: Glucose,Whole Blood 120 mg/dL (75-99)
--- NOTE | 2016-06-10 14:47 | PN ---
Ke is a 61-year-old gentleman who is admitted to hospital following a redo coronary artery bypass graft. He had to be intubated. He was extubated. Looks better. His pain is better controlled now. He does not seem to have any respiratory insufficiency. On exam, heart rate is 70 beats per minute, blood pressure 130/70, respiratory rate is 18. Chest exam reveals diminished air entry at the bases. Heart exam reveals first and second heart sounds. No gallop. Exam of the extremities did not reveal any edema. Peripheral pulses are felt. The patient is on: 1. Aspirin. 2. Lipitor. 3. Plavix 75 daily. 4. Cardizem 30 q.6h. 5. Insulin. The patient was on Losartan which I am going to resume. On exam, vital signs are stable. Chest exam reveals diminished air entry at the bases. Heart exam reveals first and second heart sounds. No gallop. Exam of the extremities did not reveal any edema. Reviewed his labs. ASSESSMENT: 1. Coronary artery disease, status post redo coronary artery bypass grafting. 2. Respiratory insufficiency. PLAN: Patient will continue with incentive spirometry, continue with his medications.
[2016-06-10] MEDS: LACTATED RINGERS 1,000 ML IV SCH (15:17)
[2016-06-10 16:03] LABS: Glucose,Whole Blood 113 mg/dL (75-99)
[2016-06-10 17:17] LABS: Glucose,Whole Blood 108 mg/dL (75-99)
[2016-06-10] MEDS: HYDROcodone/APAP 7.5-325MG 1 EACH TAB PO PRN ×2 (17:29→21:33)
--- NOTE | 2016-06-10 17:52 | P.PN ---
Subjective Principal diagnosis: Status post CABG POD #3 redo coronary artery bypass grafting 2 with left radial artery harvest and left radial artery to obtuse marginal coronary artery and endovascular vein harvest from the left greater saphenous vein with bypass of the posterior lateral branch. Patient was reevaluated today on 06/09/2016, attempted to wean and extubate the patient, however his pO2 remained very marginal on 50% FiO2 with a PEEP of 5. Chest x-ray continues to show some atelectasis mostly at the left base, hence I felt that the patient is not quite ready for weaning at this point. I did place the patient on a trial of pressure support of 8 and CPAP, but he was noted within half an hour to be quite tachypneic, and his O2 saturation was very marginal in the low 90s in spite of being at 50% FiO2. ABG showed a pO2 of 68 at best, hence I recommended one dose of Lasix 40 mg IV push, and held back on further weaning. I would place the patient again on assist control mode of mechanical ventilation, and we'll likely address weaning again later today or in a.m. The rest of the labs were reviewed, hemoglobin is 8.3 the PEEP status 4.8. Basic metabolic profile is relatively unremarkable. Patient was reevaluated today on 06/10/2016, his initial x-ray was a very poor quality, hence I repeated the chest x-ray and actually showed significant improvement in the left lower lobe. ABG was actually good today, and patient was given a trial on pressure support and CPAP, follow-up ABG was also acceptable, and this was on pressure support and CPAP showing a pO2 of 98 pCO2 of 42 pH of 7.45. Hence I went ahead and extubated the patient. Rest of the labs were relatively unremarkable, and if the patient desaturates overnight, we could potentially place the patient on BiPAP however a nasal cannula will be appropriate to start with. Objective - Vital Signs Vital signs: Vital Signs Temp 98.5 F 06/10/16 16:00 Pulse 70 06/10/16 17:00 Resp 21 06/10/16 12:00 BP 133/70 06/10/16 17:00 Pulse Ox 96 06/10/16 17:00 Intake & Output 06/09/16 06/10/16 06/10/16 18:59 06:59 18:59 Intake Total 503.761 869.435 394.066 Output Total 101 414 1927 Balance -181.239 314.435 -720.934 Weight 117.4 kg 110.7 kg 110.7 kg Intake: IV 276 276 253 Lactated Ringers 1,000 ml 240 240 220 @ 20 mls/hr IV .Q24H [facility] Rx#:[id number] pressure bag 36 36 33 Intake, IV Titration 227.761 253.435 111.066 Amount Insulin Regular 100 unit 39.123 23.988 In Sodium Chloride 0.9% 100 ml @ Per Protocol IV .Q0M [facility] Rx#:[id number] Propofol 500 mg In Empty 227.761 214.312 87.078 Bag 1 bag @ Titrate IV . Q0M [facility] Rx#:[id number] Tube Feeding 250 30 Other 90 Output: Chest Tube Drainage 30 Left Lateral Chest 0 Right Lateral Chest 30 Drainage 0 Left Wrist 0 Urine 623 825 7389 Other: Voiding Method Indwelling Catheter Indwelling Catheter Indwelling Catheter ABP, PAP, CO, CI - Last Documented Arterial Blood Pressure 94/49 Pulmonary Artery Pressure 47/18 Cardiac Output 8.7 Cardiac Index 4.3 - Exam Physical Exam: Revealed a 61-year-old white male on mechanical ventilation, endotracheal tube is intact. HEENT:[Neck is supple.] [No neck masses.] [No thyromegaly.] [No JVD.] Endotracheal tube is intact Chest: [Minimal crackles at the bases] Cardiac Exam: [Normal S1 and S2, no S3 gallop, no murmur. Positive pericardial rub] Abdomen: [Soft, nontender, no megaly, no rebound, no guarding, normal bowel sounds.] Extremities: [No clubbing, no edema, no cyanosis.] Neurological Exam: No focal neurologic deficit, patient is awake, and very appropriate. No focal deficit noted. - Labs CBC & Chem 7: 06/10/16 05:10 06/10/16 14:59 Labs: Abnormal Lab Results - Last 24 Hours (Table) 06/09/16 06/09/16 06/09/16 Range/Units 18:09 20:00 22:06 RBC (4.30-5.90) m/uL Hgb (13.0-17.5) gm/dL Hct (39.0-53.0) % Plt Count (150-450) k/uL Lymphocytes # (1.0-4.8) k/uL ABG pO2 (83-108) mmHg ABG HCO3 (21-25) mmol/L ABG Total CO2 (19-24) mmol/L ABG O2 Saturation (94-97) % Sodium (137-145) mmol/L BUN (9-20) mg/dL Glucose (74-99) mg/dL POC Glucose (mg/dL) 101 H 105 H 111 H (75-99) mg/dL Calcium (8.4-10.2) mg/dL Total Protein (6.3-8.2) g/dL Albumin (3.5-5.0) g/dL 06/10/16 06/10/16 06/10/16 Range/Units 00:13 02:10 05:07 RBC (4.30-5.90) m/uL Hgb (13.0-17.5) gm/dL Hct (39.0-53.0) % Plt Count (150-450) k/uL Lymphocytes # (1.0-4.8) k/uL ABG pO2 (83-108) mmHg ABG HCO3 (21-25) mmol/L ABG Total CO2 (19-24) mmol/L ABG O2 Saturation (94-97) % Sodium (137-145) mmol/L BUN (9-20) mg/dL Glucose (74-99) mg/dL POC Glucose (mg/dL) 128 H 115 H 139 H (75-99) mg/dL Calcium (8.4-10.2) mg/dL Total Protein (6.3-8.2) g/dL Albumin (3.5-5.0) g/dL 06/10/16 06/10/16 06/10/16 Range/Units 05:10 05:10 06:04 RBC 2.54 L (4.30-5.90) m/uL Hgb 7.9 L (13.0-17.5) gm/dL Hct 23.7 L (39.0-53.0) % Plt Count 113 L (150-450) k/uL Lymphocytes # 0.6 L (1.0-4.8) k/uL ABG pO2 (83-108) mmHg ABG HCO3 (21-25) mmol/L ABG Total CO2 (19-24) mmol/L ABG O2 Saturation (94-97) % Sodium 147 H (137-145) mmol/L BUN 24 H (9-20) mg/dL Glucose 137 H (74-99) mg/dL POC Glucose (mg/dL) 142 H (75-99) mg/dL Calcium 8.3 L (8.4-10.2) mg/dL Total Protein 5.6 L (6.3-8.2) g/dL Albumin 3.1 L (3.5-5.0) g/dL 06/10/16 06/10/16 06/10/16 Range/Units 08:41 08:54 10:04 RBC (4.30-5.90) m/uL Hgb (13.0-17.5) gm/dL Hct (39.0-53.0) % Plt Count (150-450) k/uL Lymphocytes # (1.0-4.8) k/uL ABG pO2 119 H (83-108) mmHg ABG HCO3 28 H 29 H (21-25) mmol/L ABG Total CO2 29 H 30 H (19-24) mmol/L ABG O2 Saturation 99.0 H 98.0 H (94-97) % Sodium (137-145) mmol/L BUN (9-20) mg/dL Glucose (74-99) mg/dL POC Glucose (mg/dL) 122 H (75-99) mg/dL Calcium (8.4-10.2) mg/dL Total Protein (6.3-8.2) g/dL Albumin (3.5-5.0) g/dL 06/10/16 06/10/16 06/10/16 Range/Units 10:19 12:04 14:41 RBC (4.30-5.90) m/uL Hgb (13.0-17.5) gm/dL Hct (39.0-53.0) % Plt Count (150-450) k/uL Lymphocytes # (1.0-4.8) k/uL ABG pO2 (83-108) mmHg ABG HCO3 (21-25) mmol/L ABG Total CO2 (19-24) mmol/L ABG O2 Saturation (94-97) % Sodium (137-145) mmol/L BUN (9-20) mg/dL Glucose (74-99) mg/dL POC Glucose (mg/dL) 138 H 124 H 120 H (75-99) mg/dL Calcium (8.4-10.2) mg/dL Total Protein (6.3-8.2) g/dL Albumin (3.5-5.0) g/dL 06/10/16 06/10/16 Range/Units 16:00 17:16 RBC (4.30-5.90) m/uL Hgb (13.0-17.5) gm/dL Hct (39.0-53.0) % Plt Count (150-450) k/uL Lymphocytes # (1.0-4.8) k/uL ABG pO2 (83-108) mmHg ABG HCO3 (21-25) mmol/L ABG Total CO2 (19-24) mmol/L ABG O2 Saturation (94-97) % Sodium (137-145) mmol/L BUN (9-20) mg/dL Glucose (74-99) mg/dL POC Glucose (mg/dL) 113 H 108 H (75-99) mg/dL Calcium (8.4-10.2) mg/dL Total Protein (6.3-8.2) g/dL Albumin (3.5-5.0) g/dL Assessment and Plan Plan: Impression: Status post CABG, redo 2 with left radial artery harvest and left radial artery to obtuse marginal coronary artery and endovascular vein harvest from the left greater saphenous vein with bypass of the posterior lateral branch postoperative day # 4 Postoperative respiratory failure, failed extubation, patient had to be reintubated and placed on mechanical ventilation, I believe it is mostly because of atelectasis involving the left lower lobe, and possibly some component of congestive heart failure yesterday. Hence the patient will remain on mechanical ventilation today, and we'll readdress weaning and extubation in the next 24 hours. Patient was given a trial of weaning today on 06/09/2016, and obviously his pO2 remains marginal and he is almost there yet but not quite ready for extubation at this point. On 06/10/2016, patient was given a trial of pressure support and CPAP again, extubated uneventfully to a nasal cannula. Chest x-ray showed improvement, continues to have some minimal atelectasis in the left lower lobe, and hopefully that will improve with bronchodilators and incentive spirometry. Multiple comorbidities including history of hypertension, previous CABG, and history of hyperlipidemia. Recommendation: Extubated to a nasal cannula, and we'll continue incentive spirometry and bronchodilators. Critical care time is 33 minutes Time with Patient: Greater than 30
[2016-06-10 18:37] LABS: Glucose,Whole Blood 142 mg/dL (75-99)
[2016-06-10 20:10] LABS: Glucose,Whole Blood 143 mg/dL (75-99)
[2016-06-10 22:02] LABS: Glucose,Whole Blood 109 mg/dL (75-99)
[2016-06-10 23:59] LABS: Glucose,Whole Blood 112 mg/dL (75-99)
[2016-06-11] MEDS: CHLORHEXIDINE GLUCONATE 15 ML CUP MUCOUS MEM SCH (04:02)
[2016-06-11] MEDS: SENNOSIDES-DOCUSATE SODIUM 1 EACH TAB PO SCH ×2 (04:04→21:08)
[2016-06-11 04:32] LABS: Glucose,Whole Blood 114 mg/dL (75-99)
[2016-06-11] MEDS: HYDROcodone/APAP 7.5-325MG 1 EACH TAB PO PRN ×3 (04:44→15:52)
[2016-06-11 06:28] LABS: Glucose,Whole Blood 124 mg/dL (75-99)
[2016-06-11] MEDS: KETOROLAC 30 MG/ML 1 ML VIAL IVP SCH (06:32)
[2016-06-11] MEDS: CARVEDILOL 6.25 MG TAB PO SCH ×2 (06:44→18:37)
[2016-06-11] MEDS: HEPARIN SODIUM,PORCINE 5,000 UNIT/ML 1 ML VIAL SQ SCH ×2 (06:44→14:15)
[2016-06-11] MEDS: DILTIAZEM ORAL 30 MG TAB PO SCH ×3 (06:44→18:37)
[2016-06-11 06:45] LABS: Basophils % (A) 0 %; CH 30.9; CHCM 33.7; Eosinophils # (A) 0.2 k/uL (0-0.7); Eosinophils % (A) 4 %; HCT 25.7 % (39.0-53.0); HGB 8.6 gm/dL (13.0-17.5); Luc # (Auto) 0.15; Luc % (Auto) 3; Lymphocytes # (A) 0.6 k/uL (1.0-4.8); Lymphocytes % (A) 12 %; MCHC 33.5 g/dL (31.0-37.0); MCV 92.5 fL (80.0-100.0); Mean Platelet Volume 7.3; Monocytes # (A) 0.3 k/uL (0-1.0); Monocytes % (A) 5 %; Neutrophils # (A) 3.9 k/uL (1.3-7.7); Neutrophils % (A) 75 %; Poikilocytosis Slight; RBC 2.78 m/uL (4.30-5.90); RDW 14.4 % (11.5-15.5); WBC 5.2 k/uL (3.8-10.6); WBC (Perox) 5.27
[2016-06-11 07:20] LABS: Ionized Calcium 4.6 mg/dL (4.5-5.3)
[2016-06-11 07:33] LABS: Magnesium 1.6 mg/dL (1.6-2.3); Phosphorous 3.5 mg/dL (2.5-4.5)
[2016-06-11 07:35] LABS: ALT 80 U/L (21-72); AST 64 U/L (17-59); Alkaline Phosphatase 128 U/L (38-126); Anion Gap 10 mmol/L; Blood Urea Nitrogen 19 mg/dL (9-20); Calcium 8.1 mg/dL (8.4-10.2); Carbon Dioxide 29 mmol/L (22-30); Chloride 102 mmol/L (98-107); Glucose 117 mg/dL (74-99); Non-African American GFR(MDRD) >60 (>60 ml/min/1.73 sqM); Potassium 3.7 mmol/L (3.5-5.1); Sodium 141 mmol/L (137-145); Total Bilirubin 1.4 mg/dL (0.2-1.3); Total Protein 6.1 g/dL (6.3-8.2)
[2016-06-11 08:22] LABS: Glucose,Whole Blood 127 mg/dL (75-99)
--- NOTE | 2016-06-11 08:33 | XR ---
EXAMINATION TYPE: XR chest 1V portable DATE OF EXAM: 06/11/2016 6:55 AM COMPARISON: 06/10/2016 INDICATION: Tube removal TECHNIQUE: Single frontal view of the chest is obtained. FINDINGS: The heart size is enlarged. The pulmonary vasculature is normal. Mild infiltrates at the right posterior medial lung base. A left lower lobe infiltrate is present. En dotracheal tube and nasogastric tube. EKG leads overlie the chest. Sternotomy wires are in the midlin e. Sheath appears to be present on the right. IMPRESSION: 1. Left lower lobe infiltrate. Some minimal medial right lower lobe infiltrate may be present.
[2016-06-11] MEDS: ASPIRIN 325 MG TAB PO SCH (08:35)
[2016-06-11] MEDS: CLOPIDOGREL 75 MG TAB PO SCH (08:35)
[2016-06-11] MEDS: ATORVASTATIN 40 MG TAB PO SCH (08:35)
[2016-06-11] MEDS: SERTRALINE 100 MG TAB PO SCH (08:36)
[2016-06-11] MEDS: FUROSEMIDE 10 MG/ML 2 ML VIAL IV SCH (08:36)
[2016-06-11] MEDS: PANTOPRAZOLE 40 MG/10 ML VIAL IVP SCH (08:36)
[2016-06-11] MEDS: MAGNESIUM SULFATE-D5W PMX 1 GM in DEXTROSE/WATER 1 100ML.BAG IVPB SCH ×2 (08:40→09:50)
[2016-06-11] MEDS: IPRATROPIUM-ALBUTEROL 3 ML NEB INHALATION SCH ×4 (09:05→20:12)
[2016-06-11] MEDS ORDERED: POTASSIUM CHLORIDE ER 20 MEQ TAB.ER PO STA (09:20)
[2016-06-11 10:12] LABS: Glucose,Whole Blood 170 mg/dL (75-99)
[2016-06-11] MEDS ORDERED: INSULIN DETEMIR 100 UNIT/ML 10 ML VIAL SQ ONE (11:21)
[2016-06-11 11:50] LABS: Glucose,Whole Blood 130 mg/dL (75-99)
[2016-06-11] MEDS: INSULIN LISPRO (humaLOG) 300 UNIT/3 ML VIAL SQ SCH ×3 (11:50→21:05)
--- NOTE | 2016-06-11 11:50 | P.PN ---
Progress Note - Text CV Surgery Nursing POD: #5, redo coronary artery bypass grafting 2 utilizing the left radial artery to the obtuse marginal coronary artery and a reverse saphenous vein graft to the posterior lateral branch. Endoscopic vein harvesting. Transesophageal echocardiogram and epi-aortic ultrasonography Patient awake and alert, sitting up in the chair, no distress noted, no specific complaints. Vital Signs: Afebrile, T-max is 98.7F Vital Signs - 24 hr 06/10/16 06/10/16 06/10/16 12:00 13:00 14:00 Temperature Pulse Rate 74 74 71 Respiratory 21 Rate Blood Pressure 135/67 142/73 134/64 O2 Sat by Pulse 95 95 95 Oximetry 06/10/16 06/10/16 06/10/16 15:00 15:56 16:00 Temperature 98.5 F Pulse Rate 69 71 68 Respiratory 21 Rate Blood Pressure 134/64 O2 Sat by Pulse 95 97 Oximetry 06/10/16 06/10/16 06/10/16 16:04 17:00 18:00 Temperature Pulse Rate 68 70 82 Respiratory Rate Blood Pressure 133/70 153/72 O2 Sat by Pulse 96 93 L Oximetry 06/10/16 06/10/16 06/10/16 19:00 20:00 21:00 Temperature 98.3 F Pulse Rate 69 68 68 Respiratory 19 19 Rate Blood Pressure 133/64 125/65 111/59 O2 Sat by Pulse 91 L 92 L 91 L Oximetry 06/10/16 06/10/16 06/10/16 21:18 21:32 22:00 Temperature Pulse Rate 69 72 69 Respiratory 19 Rate Blood Pressure 147/70 O2 Sat by Pulse 93 L Oximetry 06/10/16 06/10/16 06/11/16 23:00 23:33 00:00 Temperature 98.6 F Pulse Rate 89 78 Respiratory 17 24 Rate Blood Pressure 133/71 152/87 O2 Sat by Pulse 94 L 94 L 96 Oximetry 06/11/16 06/11/16 06/11/16 01:00 02:00 03:00 Temperature Pulse Rate 79 82 74 Respiratory 17 17 17 Rate Blood Pressure 147/70 119/67 146/67 O2 Sat by Pulse 93 L 95 96 Oximetry 06/11/16 06/11/16 06/11/16 04:00 05:00 06:00 Temperature 98.7 F Pulse Rate 72 68 72 Respiratory 18 17 17 Rate Blood Pressure 129/66 131/57 107/58 O2 Sat by Pulse 96 97 96 Oximetry 06/11/16 06/11/16 06/11/16 07:00 08:00 09:00 Temperature 97.6 F Pulse Rate 71 69 66 Respiratory 18 17 17 Rate Blood Pressure 117/60 103/53 119/52 O2 Sat by Pulse 97 95 98 Oximetry 06/11/16 06/11/16 06/11/16 09:05 09:16 10:00 Temperature Pulse Rate 67 66 68 Respiratory 22 Rate Blood Pressure 110/57 O2 Sat by Pulse 94 L Oximetry 06/11/16 11:00 Temperature Pulse Rate 67 Respiratory 18 Rate Blood Pressure 120/57 O2 Sat by Pulse 94 L Oximetry Labs: Short CBC 06/11/16 Range/Units 06:30 WBC 5.2 (3.8-10.6) k/uL Hgb 8.6 L (13.0-17.5) gm/dL Hct 25.7 L (39.0-53.0) % Plt Count 138 L (150-450) k/uL Neutrophils # 3.9 (1.3-7.7) k/uL BMP 06/10/16 06/11/16 14:59 06:30 Sodium 141 Potassium 4.1 3.7 Chloride 102 Carbon Dioxide 29 BUN 19 Creatinine 0.62 L Glucose 117 H Calcium 8.1 L Liver Function 06/11/16 Range/Units 06:30 Total Bilirubin 1.4 H (0.2-1.3) mg/dL AST 64 H (17-59) U/L ALT 80 H (21-72) U/L Alkaline Phosphatase 128 H (38-126) U/L Albumin 3.3 L (3.5-5.0) g/dL IV Fluids: Insulin drip at 0.5 units per hour Lungs: Respirations are even and nonlabored, breath sounds are diminished bilateral bases to auscultation O2 sat: 94% on 6 L of oxygen delivered via nasal cannula I/S: Patient demonstrated correct use of the incentive spirometer and was getting up to 1250 mL in the device. Heart: S1S2, regular rate and rhythm bedside monitor shows a normal sinus rhythm Sternum stable, chest incision clean with silverlon dressing clean and dry. Abdomen: Soft, Positive bowel sounds present in all 4 quadrants. CBGs: 114-127 mg/dL U/O: Adequate Intake & Output 06/09/16 06/10/16 06/11/16 06/12/16 06:59 06:59 06:59 06:59 Intake Total 6655.995 2611.196 1215.066 115.858 Output Total 2136 1240 1650 650 Balance -899.999 133.196 -434.934 -534.142 Weight 117.4 kg 110.7 kg 110 kg Active Medications Acetaminophen/Hydrocodone Bitart (Woodruff 7.5-325) 1 each PO Q4H PRN PRN Reason: Moderate Pain Last Admin: 06/11/16 04:44 Dose: 1 each Acetaminophen/Hydrocodone Bitart (Woodruff 7.5-325) 2 each PO Q4H PRN PRN Reason: Severe Pain Albuterol/Ipratropium (Duoneb 0.5 Mg-3 Mg/3 Ml Soln) 3 ml INHALATION RT-QID [facility] Last Admin: 06/11/16 09:05 Dose: 3 ml Albuterol/Ipratropium (Duoneb 0.5 Mg-3 Mg/3 Ml Soln) 3 ml INHALATION RT-Q2H PRN PRN Reason: Shortness Of Breath Or Wheezing Aspirin (Aspirin) 325 mg PO DAILY [facility] Last Admin: 06/11/16 08:35 Dose: 325 mg Atorvastatin Calcium (Lipitor) 40 mg PO DAILY [facility] Last Admin: 06/11/16 08:35 Dose: 40 mg Benzocaine/Menthol (Cepacol Lozenge) 1 each MUCOUS MEM Q2H PRN PRN Reason: Sore Throat Bisacodyl (Dulcolax) 10 mg RECTAL DAILY PRN PRN Reason: Constipation Carvedilol (Coreg) 6.25 mg PO BID-W/MEALS [facility] Last Admin: 06/11/16 06:44 Dose: 6.25 mg Clopidogrel Bisulfate (Plavix) 75 mg PO DAILY [facility] Last Admin: 06/11/16 08:35 Dose: 75 mg Diltiazem HCl (Cardizem Oral) 30 mg PO Q6HR [facility] Last Admin: 06/11/16 06:44 Dose: 30 mg Furosemide (Lasix) 20 mg IV DAILY [facility] Last Admin: 06/11/16 08:36 Dose: 20 mg Heparin Sodium (Porcine) (Heparin) 5,000 unit SQ Q8H [facility] Last Admin: 06/11/16 06:44 Dose: 5,000 unit Lactated Ringer's (Lactated Ringers) 1,000 mls @ 20 mls/hr IV .Q24H [facility] Last Admin: 06/10/16 15:17 Dose: 20 mls/hr Insulin Detemir (Levemir) 15 unit SQ 0900 [facility] Insulin Human Lispro (Humalog) 0 unit SQ [id number] [facility] PRN Reason: Protocol Lorazepam (Ativan) 1 mg IV Q4HR PRN PRN Reason: Anxiety Last Admin: 06/10/16 01:04 Dose: 1 mg Magnesium Hydroxide (Milk Of Magnesia) 2,400 mg PO BID PRN PRN Reason: Constipation Miscellaneous Information (Magnesium Per Protocol) 1 each MISCELLANE DAILY PRN ; Protocol PRN Reason: Per Protocol Miscellaneous Information (Phosphorus Per Protocol) 1 each MISCELLANE DAILY PRN ; Protocol PRN Reason: Per Protocol Miscellaneous Information (Potassium Per Protocol) 1 each MISCELLANE DAILY PRN ; Protocol PRN Reason: Per Protocol Morphine Sulfate (Morphine Sulfate (Inj)) 2 mg IVP Q2H PRN PRN Reason: Severe Pain Last Admin: 06/10/16 00:08 Dose: 2 mg Ondansetron HCl (Zofran) 4 mg IVP Q6HR PRN PRN Reason: Nausea And Vomiting Pantoprazole Sodium (Protonix) 40 mg IVP DAILY [facility] Last Admin: 06/11/16 08:36 Dose: 40 mg Senna/Docusate Sodium (Senokot-S) 2 each PO HS [facility] Last Admin: 06/11/16 04:04 Dose: Not Given Sertraline HCl (Zoloft) 100 mg PO DAILY [facility] Last Admin: 06/11/16 08:36 Dose: 100 mg Sodium Chloride (Saline Flush) 10 ml IV BID [facility] Last Admin: 06/11/16 08:36 Dose: 10 ml Plan: Discontinue insulin drip-start subq insulin as necessary. Continue to monitor liver enzymes. Continue aggressive pulmonary toilet utilizing incentive spirometry, coughing and deep breathing, and inhalation treatments per respiratory therapy department. Continue to increase activity as tolerated.
--- NOTE | 2016-06-11 12:07 | PN ---
Ke is a 61-year-old gentleman in the ICU following redo bypass surgery, doing much better, remains in sinus rhythm. Blood pressure is well controlled. On optimal medical therapy including aspirin, Lipitor, Coreg, Plavix, Cardizem and Lasix. On exam, heart rate is 67 beats per minute, blood pressure 120/57, respiratory rate is 18. Chest exam reveals diminished air entry at the bases. Heart exam reveals first and second heart sounds. No gallop. Exam of the extremities did not reveal any edema. Peripheral pulses are felt. Labs show a hemoglobin of 8.6. Potassium is 3.7. Creatinine is 0.6. ASSESSMENT: Coronary artery disease, status post redo coronary artery bypass graft. Patient is doing better. Will continue with his current medications.
--- NOTE | 2016-06-11 12:22 | P.PN ---
Subjective Principal diagnosis: Status post CABG POD #3 redo coronary artery bypass grafting 2 with left radial artery harvest and left radial artery to obtuse marginal coronary artery and endovascular vein harvest from the left greater saphenous vein with bypass of the posterior lateral branch. Patient was reevaluated today on 06/09/2016, attempted to wean and extubate the patient, however his pO2 remained very marginal on 50% FiO2 with a PEEP of 5. Chest x-ray continues to show some atelectasis mostly at the left base, hence I felt that the patient is not quite ready for weaning at this point. I did place the patient on a trial of pressure support of 8 and CPAP, but he was noted within half an hour to be quite tachypneic, and his O2 saturation was very marginal in the low 90s in spite of being at 50% FiO2. ABG showed a pO2 of 68 at best, hence I recommended one dose of Lasix 40 mg IV push, and held back on further weaning. I would place the patient again on assist control mode of mechanical ventilation, and we'll likely address weaning again later today or in a.m. The rest of the labs were reviewed, hemoglobin is 8.3 the PEEP status 4.8. Basic metabolic profile is relatively unremarkable. Patient was reevaluated today on 06/10/2016, his initial x-ray was a very poor quality, hence I repeated the chest x-ray and actually showed significant improvement in the left lower lobe. ABG was actually good today, and patient was given a trial on pressure support and CPAP, follow-up ABG was also acceptable, and this was on pressure support and CPAP showing a pO2 of 98 pCO2 of 42 pH of 7.45. Hence I went ahead and extubated the patient. Rest of the labs were relatively unremarkable, and if the patient desaturates overnight, we could potentially place the patient on BiPAP however a nasal cannula will be appropriate to start with. Patient was reevaluated today on 06/11/2016, tolerated the extubation well over the last 24 hours. Chest x-ray continues to show some atelectasis in the left lower lobe, however the patient is doing well with incentive spirometry, and he has a bit of a stronger cough today. WBC count is 5.2 hemoglobin is 8.6. Electrolytes and renal profile are normal. Patient denies any specific complaints. And he is not in any form of distress. Objective - Vital Signs Vital signs: Vital Signs Temp 98.2 F 06/11/16 12:00 Pulse 65 06/11/16 12:16 Resp 19 06/11/16 12:00 BP 111/56 06/11/16 12:00 Pulse Ox 94 L 06/11/16 12:00 Intake & Output 06/10/16 06/11/16 06/11/16 18:59 06:59 18:59 Intake Total 417.066 798 138.858 Output Total 1155 495 650 Balance -737.934 303 -511.142 Weight 110.7 kg 110 kg Intake: IV 276 276 138 Lactated Ringers 1,000 ml 240 240 120 @ 20 mls/hr IV .Q24H [facility] Rx#:[id number] pressure bag 36 36 18 Intake, IV Titration 111.066 0 0.858 Amount Insulin Regular 100 unit 23.988 0 0.858 In Sodium Chloride 0.9% 100 ml @ Per Protocol IV .Q0M [facility] Rx#:[id number] Propofol 500 mg In Empty 87.078 Bag 1 bag @ Titrate IV . Q0M [facility] Rx#:[id number] Oral 522 Tube Feeding 30 Output: Urine 1155 495 650 Other: Voiding Method Indwelling Catheter Indwelling Catheter Urinal # Voids 1 ABP, PAP, CO, CI - Last Documented Arterial Blood Pressure 94/49 Pulmonary Artery Pressure 47/18 Cardiac Output 8.7 Cardiac Index 4.3 - Exam Physical Exam: Revealed a 61-year-old white male on nasal cannula HEENT:[Neck is supple.] [No neck masses.] [No thyromegaly.] [No JVD.] Endotracheal tube is intact Chest: [Slightly diminished breath sounds at the left base, no crackles or rhonchi or wheezes.] Cardiac Exam: [Normal S1 and S2, no S3 gallop, no murmur. ] Abdomen: [Soft, nontender, no megaly, no rebound, no guarding, normal bowel sounds.] Extremities: [No clubbing, no edema, no cyanosis.] Neurological Exam: No focal neurologic deficit, patient is awake, and very appropriate. No focal deficit noted. - Labs CBC & Chem 7: 06/11/16 06:30 06/11/16 06:30 Labs: Abnormal Lab Results - Last 24 Hours (Table) 06/10/16 06/10/16 06/10/16 Range/Units 14:41 16:00 17:16 RBC (4.30-5.90) m/uL Hgb (13.0-17.5) gm/dL Hct (39.0-53.0) % Plt Count (150-450) k/uL Lymphocytes # (1.0-4.8) k/uL Creatinine (0.66-1.25) mg/dL Glucose (74-99) mg/dL POC Glucose (mg/dL) 120 H 113 H 108 H (75-99) mg/dL Calcium (8.4-10.2) mg/dL Total Bilirubin (0.2-1.3) mg/dL AST (17-59) U/L ALT (21-72) U/L Alkaline Phosphatase (38-126) U/L Total Protein (6.3-8.2) g/dL Albumin (3.5-5.0) g/dL 06/10/16 06/10/16 06/10/16 Range/Units 18:36 20:09 22:01 RBC (4.30-5.90) m/uL Hgb (13.0-17.5) gm/dL Hct (39.0-53.0) % Plt Count (150-450) k/uL Lymphocytes # (1.0-4.8) k/uL Creatinine (0.66-1.25) mg/dL Glucose (74-99) mg/dL POC Glucose (mg/dL) 142 H 143 H 109 H (75-99) mg/dL Calcium (8.4-10.2) mg/dL Total Bilirubin (0.2-1.3) mg/dL AST (17-59) U/L ALT (21-72) U/L Alkaline Phosphatase (38-126) U/L Total Protein (6.3-8.2) g/dL Albumin (3.5-5.0) g/dL 06/10/16 06/11/16 06/11/16 Range/Units 23:57 04:20 06:21 RBC (4.30-5.90) m/uL Hgb (13.0-17.5) gm/dL Hct (39.0-53.0) % Plt Count (150-450) k/uL Lymphocytes # (1.0-4.8) k/uL Creatinine (0.66-1.25) mg/dL Glucose (74-99) mg/dL POC Glucose (mg/dL) 112 H 114 H 124 H (75-99) mg/dL Calcium (8.4-10.2) mg/dL Total Bilirubin (0.2-1.3) mg/dL AST (17-59) U/L ALT (21-72) U/L Alkaline Phosphatase (38-126) U/L Total Protein (6.3-8.2) g/dL Albumin (3.5-5.0) g/dL 06/11/16 06/11/16 06/11/16 Range/Units 06:30 06:30 08:21 RBC 2.78 L (4.30-5.90) m/uL Hgb 8.6 L (13.0-17.5) gm/dL Hct 25.7 L (39.0-53.0) % Plt Count 138 L (150-450) k/uL Lymphocytes # 0.6 L (1.0-4.8) k/uL Creatinine 0.62 L (0.66-1.25) mg/dL Glucose 117 H (74-99) mg/dL POC Glucose (mg/dL) 127 H (75-99) mg/dL Calcium 8.1 L (8.4-10.2) mg/dL Total Bilirubin 1.4 H (0.2-1.3) mg/dL AST 64 H (17-59) U/L ALT 80 H (21-72) U/L Alkaline Phosphatase 128 H (38-126) U/L Total Protein 6.1 L (6.3-8.2) g/dL Albumin 3.3 L (3.5-5.0) g/dL 06/11/16 06/11/16 Range/Units 10:10 11:48 RBC (4.30-5.90) m/uL Hgb (13.0-17.5) gm/dL Hct (39.0-53.0) % Plt Count (150-450) k/uL Lymphocytes # (1.0-4.8) k/uL Creatinine (0.66-1.25) mg/dL Glucose (74-99) mg/dL POC Glucose (mg/dL) 170 H 130 H (75-99) mg/dL Calcium (8.4-10.2) mg/dL Total Bilirubin (0.2-1.3) mg/dL AST (17-59) U/L ALT (21-72) U/L Alkaline Phosphatase (38-126) U/L Total Protein (6.3-8.2) g/dL Albumin (3.5-5.0) g/dL Assessment and Plan Plan: Impression: Status post CABG, redo 2 with left radial artery harvest and left radial artery to obtuse marginal coronary artery and endovascular vein harvest from the left greater saphenous vein with bypass of the posterior lateral branch postoperative day # 5 Postoperative respiratory failure, failed extubation, patient had to be reintubated and placed on mechanical ventilation, I believe it is mostly because of atelectasis involving the left lower lobe, and possibly some component of congestive heart failure yesterday. Hence the patient will remain on mechanical ventilation today, and we'll readdress weaning and extubation in the next 24 hours. Patient was given a trial of weaning today on 06/09/2016, and obviously his pO2 remains marginal and he is almost there yet but not quite ready for extubation at this point. On 06/10/2016, patient was given a trial of pressure support and CPAP again, extubated uneventfully to a nasal cannula. Chest x-ray showed improvement, continues to have some minimal atelectasis in the left lower lobe, and hopefully that will improve with bronchodilators and incentive spirometry. On 06/11/2016, patient seems to be doing much better, tolerated the extubation well over the last 24 hours, we'll continue bronchodilators, incentive spirometry, encourage deep coughing and breathing, and hopefully ambulate. Multiple comorbidities including history of hypertension, previous CABG, and history of hyperlipidemia. Recommendation continue to monitor in the ICU, consider transfer to a cardiac floor in the next 24 hours Time with Patient: Less than 30
[2016-06-11 14:03] LABS: Glucose,Whole Blood 109 mg/dL (75-99)
[2016-06-11] MEDS: LACTATED RINGERS 1,000 ML IV SCH (14:20)
--- NOTE | 2016-06-11 17:22 | P.CONS ---
History of Present Illness - Reason for Consult Consult date: 06/11/16 - Chief Complaint Redo CABG 2 - History of Present Illness Is a 61-year-old gentleman is admitted to the hospital for a redo of CABG 2 postop day 6 Patient is seen in medical consultation for management of chronic medical conditions. Patient is currently on Levaquin liters supplement oxygen states to be more short of breath at rest. Denies having any chest pressure does have a cough that is productive of yellowish phlegm. No abdominal pain noted. Patient denies having any tenderness in the lower extremities, headaches, nausea, vomiting. Underwent a left radial artery harvest to the upper twos marginal coronary artery and endovascular vein harvest from the great saphenous vein to the posterior lateral branch. Apparently was on insulin drip until overnight. However was turned off patient was having glucose levels between 100 and 180. Thereafter I directed to start Levemir at 15 units with NovoLog sliding scale. Review of Systems All systems: negative (Noted in HPI) Past Medical History Past Medical History: Cancer, Chest Pain / Angina, COPD, CVA/TIA, Hyperlipidemia , Hypertension, Myocardial Infarction ([place]), Osteoarthritis (OA) Additional Past Medical History / Comment(s): generalized fatigue, unable to walk distance,SOB, CVA-several yrs. 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 ago Last Myocardial Infarction Date:: 2012 History of Any Multi-Drug Resistant Organisms: None Reported Past Surgical History: Coronary Bypass/CABG, Heart Catheterization Additional Past Surgical History / Comment(s): earlene. carotid endarterectomy, triple bypass 2012, diaphragm repair post CABG, fem-fem. bypass, cancer removed from kidney Past Anesthesia/Blood Transfusion Reactions: No Reported Reaction Past Psychological History: Anxiety, Bipolar Smoking Status: Former smoker Past Alcohol Use History: Occasional Additional Past Alcohol Use History / Comment(s): quit smoking 2005, smoked for 40 yrs. 3ppd Past Drug Use History: None Reported - Past Family History Mother Family Medical History: Cancer Medications and Allergies Home Medications Medication Instructions Recorded Confirmed Type Aspirin 81 mg PO DAILY 04/04/16 06/06/16 History Atorvastatin [Lipitor] 80 mg PO HS 04/04/16 06/06/16 History Budesonide/Formoterol Fumarate 2 puff INHALATION RT-BID PRN 04/04/16 06/06/16 History [Symbicort 160-4.5 Mcg Inhaler] Carvedilol [Coreg] 12.5 mg PO BID 04/04/16 06/06/16 History Clopidogrel [Plavix] 75 mg PO DAILY 04/04/16 06/06/16 History Losartan Potassium [Cozaar] 100 mg PO DAILY 04/04/16 06/06/16 History Nitroglycerin Sl Tabs [Nitrostat] 0.4 mg SUBLINGUAL Q5M PRN 04/04/16 06/06/16 History Sertraline HCl [Zoloft] 100 mg PO DAILY 04/04/16 06/06/16 History amLODIPine BESYLATE [Norvasc] 10 mg PO DAILY 04/04/16 06/06/16 History Mupirocin 2% Nasal Oint [Bactroban 1 applic NASAL BID 06/03/16 06/06/16 History 2% Nasal Oint] Allergies Allergy/AdvReac Type Severity Reaction Status Date / Time No Known Allergies Allergy Unverified 06/06/16 06:08 Physical Exam Vitals: Vital Signs Temp Pulse Resp BP Pulse Ox 06/11/16 16:48 69 06/11/16 16:31 78 06/11/16 16:00 98.2 F 78 18 114/53 94 L 06/11/16 15:00 67 15 112/59 93 L 06/11/16 14:40 92 L 06/11/16 14:00 69 18 109/58 97 06/11/16 13:00 66 19 114/59 94 L 06/11/16 12:28 65 06/11/16 12:16 65 06/11/16 12:00 98.2 F 68 19 111/56 94 L 06/11/16 11:00 67 18 120/57 94 L 06/11/16 10:00 68 22 110/57 94 L 06/11/16 09:16 66 06/11/16 09:05 67 06/11/16 09:00 66 17 119/52 98 06/11/16 08:00 97.6 F 69 17 103/53 95 06/11/16 07:00 71 18 117/60 97 06/11/16 06:00 72 17 107/58 96 06/11/16 05:00 68 17 131/57 97 06/11/16 04:00 98.7 F 72 18 129/66 96 06/11/16 03:00 74 17 146/67 96 06/11/16 02:00 82 17 119/67 95 06/11/16 01:00 79 17 147/70 93 L 06/11/16 00:00 98.6 F 78 24 152/87 96 06/10/16 23:33 94 L 06/10/16 23:00 89 17 133/71 94 L 06/10/16 22:00 69 19 147/70 93 L 06/10/16 21:32 72 06/10/16 21:18 69 06/10/16 21:00 68 19 111/59 91 L 06/10/16 20:00 98.3 F 68 19 125/65 92 L 06/10/16 19:00 69 133/64 91 L 06/10/16 18:00 82 153/72 93 L Intake and Output 06/11/16 06/11/16 06/11/16 06:59 14:59 22:59 Intake Total 706 934.858 450 Output Total 280 650 0 Balance 426 284.858 450 Intake: IV 184 184 Lactated Ringers 1,000 ml 160 160 @ 20 mls/hr IV .Q24H [facility] Rx#:[id number] pressure bag 24 24 Intake, IV Titration 0 0.858 Amount Insulin Regular 100 unit 0 0.858 In Sodium Chloride 0.9% 100 ml @ Per Protocol IV .Q0M [facility] Rx#:[id number] Oral 522 750 450 Output: Urine 280 650 0 Other: Voiding Method Indwelling Catheter Urinal Urinal # Voids 1 Weight 110 kg Physical exam Gen. appearance oriented 3 in no distress Neck is supple no JVD Lungs good air entry clear to auscultation no rhonchi or wheezing Heart S1-S2 heard regular rate and rhythm no murmurs appreciated Abdomen is soft nontender no organomegaly bowel sounds are intact Neurologically cranial nerves II-12 grossly intact no focal motor or sensory deficits noted Skin no abnormalities appreciated Results CBC & Chem 7: 06/11/16 06:30 06/11/16 06:30 Labs: Abnormal Lab Results - Last 24 Hours (Table) 06/10/16 06/10/16 06/10/16 Range/Units 17:16 18:36 20:09 RBC (4.30-5.90) m/uL Hgb (13.0-17.5) gm/dL Hct (39.0-53.0) % Plt Count (150-450) k/uL Lymphocytes # (1.0-4.8) k/uL Creatinine (0.66-1.25) mg/dL Glucose (74-99) mg/dL POC Glucose (mg/dL) 108 H 142 H 143 H (75-99) mg/dL Calcium (8.4-10.2) mg/dL Total Bilirubin (0.2-1.3) mg/dL AST (17-59) U/L ALT (21-72) U/L Alkaline Phosphatase (38-126) U/L Total Protein (6.3-8.2) g/dL Albumin (3.5-5.0) g/dL 06/10/16 06/10/16 06/11/16 Range/Units 22:01 23:57 04:20 RBC (4.30-5.90) m/uL Hgb (13.0-17.5) gm/dL Hct (39.0-53.0) % Plt Count (150-450) k/uL Lymphocytes # (1.0-4.8) k/uL Creatinine (0.66-1.25) mg/dL Glucose (74-99) mg/dL POC Glucose (mg/dL) 109 H 112 H 114 H (75-99) mg/dL Calcium (8.4-10.2) mg/dL Total Bilirubin (0.2-1.3) mg/dL AST (17-59) U/L ALT (21-72) U/L Alkaline Phosphatase (38-126) U/L Total Protein (6.3-8.2) g/dL Albumin (3.5-5.0) g/dL 06/11/16 06/11/16 06/11/16 Range/Units 06:21 06:30 06:30 RBC 2.78 L (4.30-5.90) m/uL Hgb 8.6 L (13.0-17.5) gm/dL Hct 25.7 L (39.0-53.0) % Plt Count 138 L (150-450) k/uL Lymphocytes # 0.6 L (1.0-4.8) k/uL Creatinine 0.62 L (0.66-1.25) mg/dL Glucose 117 H (74-99) mg/dL POC Glucose (mg/dL) 124 H (75-99) mg/dL Calcium 8.1 L (8.4-10.2) mg/dL Total Bilirubin 1.4 H (0.2-1.3) mg/dL AST 64 H (17-59) U/L ALT 80 H (21-72) U/L Alkaline Phosphatase 128 H (38-126) U/L Total Protein 6.1 L (6.3-8.2) g/dL Albumin 3.3 L (3.5-5.0) g/dL 06/11/16 06/11/16 06/11/16 Range/Units 08:21 10:10 11:48 RBC (4.30-5.90) m/uL Hgb (13.0-17.5) gm/dL Hct (39.0-53.0) % Plt Count (150-450) k/uL Lymphocytes # (1.0-4.8) k/uL Creatinine (0.66-1.25) mg/dL Glucose (74-99) mg/dL POC Glucose (mg/dL) 127 H 170 H 130 H (75-99) mg/dL Calcium (8.4-10.2) mg/dL Total Bilirubin (0.2-1.3) mg/dL AST (17-59) U/L ALT (21-72) U/L Alkaline Phosphatase (38-126) U/L Total Protein (6.3-8.2) g/dL Albumin (3.5-5.0) g/dL 06/11/16 Range/Units 14:01 RBC (4.30-5.90) m/uL Hgb (13.0-17.5) gm/dL Hct (39.0-53.0) % Plt Count (150-450) k/uL Lymphocytes # (1.0-4.8) k/uL Creatinine (0.66-1.25) mg/dL Glucose (74-99) mg/dL POC Glucose (mg/dL) 109 H (75-99) mg/dL Calcium (8.4-10.2) mg/dL Total Bilirubin (0.2-1.3) mg/dL AST (17-59) U/L ALT (21-72) U/L Alkaline Phosphatase (38-126) U/L Total Protein (6.3-8.2) g/dL Albumin (3.5-5.0) g/dL Assessment and Plan Plan: #1 CAD status post redo of CABG 2 #2 history of hypertension #3 dyslipidemia #4 diabetes mellitus with hyperglycemia #5 anemia as expected from surgery #6 acute hypoxic respiratory failure Plan Continue ongoing care. Patient was started on Levemir 15 units every morning and NovoLog sliding scale Patient is on level liters supplement oxygen appears to have hypoxia that is positional. Appears to orthopnea deoxy hypopxia Blood pressures are stable. Thank you for the consultation we'll follow patient along with you
[2016-06-11 18:41] LABS: Glucose,Whole Blood 112 mg/dL (75-99)
[2016-06-11 20:57] LABS: Glucose,Whole Blood 109 mg/dL (75-99)
[2016-06-12] MEDS: HEPARIN SODIUM,PORCINE 5,000 UNIT/ML 1 ML VIAL SQ SCH ×4 (00:13→21:15)
[2016-06-12] MEDS: DILTIAZEM ORAL 30 MG TAB PO SCH ×4 (00:14→18:34)
[2016-06-12] MEDS: HYDROcodone/APAP 7.5-325MG 1 EACH TAB PO PRN ×3 (02:17→18:33)
[2016-06-12 02:32] LABS: Glucose,Whole Blood 119 mg/dL (75-99)
[2016-06-12 04:55] LABS: CH 30.8; CHCM 34.1; HDW 3.67; HGB 8.3 gm/dL (13.0-17.5); MCH 30.2 pg (25.0-35.0); MCHC 33.1 g/dL (31.0-37.0); MCV 91.1 fL (80.0-100.0); Mean Platelet Volume 8.5; Poikilocytosis Slight; RBC 2.75 m/uL (4.30-5.90); RDW 14.4 % (11.5-15.5); WBC 5.6 k/uL (3.8-10.6)
[2016-06-12 05:15] LABS: Ionized Calcium 4.8 mg/dL (4.5-5.3)
[2016-06-12 05:27] LABS: Anion Gap 9 mmol/L; Blood Urea Nitrogen 18 mg/dL (9-20); Carbon Dioxide 29 mmol/L (22-30); Chloride 100 mmol/L (98-107); Glucose 113 mg/dL (74-99); Magnesium 2.1 mg/dL (1.6-2.3); Non-African American GFR(MDRD) >60 (>60 ml/min/1.73 sqM); Phosphorous 3.3 mg/dL (2.5-4.5); Potassium 3.9 mmol/L (3.5-5.1); Sodium 138 mmol/L (137-145)
[2016-06-12] MEDS: INSULIN LISPRO (humaLOG) 300 UNIT/3 ML VIAL SQ SCH ×5 (06:52→21:14)
[2016-06-12 07:26] LABS: Glucose,Whole Blood 109 mg/dL (75-99)
[2016-06-12] MEDS ORDERED: POTASSIUM CHLORIDE ER 20 MEQ TAB.ER PO SCH ×3 (08:00→20:00)
--- NOTE | 2016-06-12 08:01 | XR ---
EXAMINATION TYPE: XR chest 1V portable DATE OF EXAM: 06/12/2016 6:31 AM COMPARISON: June 11, 2016 HISTORY: Shortness of breath and tube removal. TECHNIQUE: Single frontal view of the chest is obtained. FINDINGS: There is no pneumothorax. There is redemonstration of a retrocardiac opacity obscuring the left hemidiaphragm and left costophrenic angle with persistent right middle lobe opacity, slightly i mproved. Postsurgical changes are again seen of the sternum and mediastinum with stable cardiac silho uette. No vascular congestion. Osseous structures are intact. IMPRESSION: Persistent left lower lobe retrocardiac opacity representing either pleural effusion/ate lectasis and/or pneumonia with improving right middle lobe opacity.
[2016-06-12] MEDS: SERTRALINE 100 MG TAB PO SCH (08:14)
[2016-06-12] MEDS: PANTOPRAZOLE 40 MG/10 ML VIAL IVP SCH (08:19)
--- NOTE | 2016-06-12 10:03 | P.PN ---
Progress Note - Text Mr. hartmann is now 6 days postop from redo CABG. He has been extubated for 2 days. He looks much better today. He remains in sinus rhythm. Blood pressure remained stable. Inspired oxygen is down to 11 L. His chest x-ray is improving. He continues to be quite a bit of haziness at the left base. Our impression is that this is atelectasis secondary to cardiomegaly. Patient's lungs are clear and his heart rate is regular's sternal wound is intact. Impression is good improvement after a prolonged respiratory failure event. Plan is to continue pulmonary toilet and likely transfer the patient to stepdown tomorrow.
[2016-06-12] MEDS: CARVEDILOL 6.25 MG TAB PO SCH ×2 (10:14→18:34)
[2016-06-12] MEDS: ASPIRIN 325 MG TAB PO SCH (10:35)
[2016-06-12] MEDS: FUROSEMIDE 10 MG/ML 2 ML VIAL IV SCH (10:36)
[2016-06-12] MEDS: CLOPIDOGREL 75 MG TAB PO SCH (10:36)
[2016-06-12] MEDS: ATORVASTATIN 40 MG TAB PO SCH (10:36)
[2016-06-12] MEDS: INSULIN DETEMIR 100 UNIT/ML 10 ML VIAL SQ SCH (10:45)
[2016-06-12] MEDS: IPRATROPIUM-ALBUTEROL 3 ML NEB INHALATION SCH ×4 (12:14→20:15)
[2016-06-12 12:19] LABS: Glucose,Whole Blood 126 mg/dL (75-99)
--- NOTE | 2016-06-12 13:50 | PN ---
A 61-year-old gentleman with redo CABG, doing much better, remains in sinus rhythm, hemodynamically stable. Currently on aspirin, Lipitor, Plavix, Lasix, oral Cardizem. On exam, comfortable at rest. Vital signs are stable. Chest exam reveals diminished air entry at the bases with occasional rhonchi. Heart exam reveals first and second heart sounds. No gallop. Exam of extremities did not reveal edema. Peripheral pulses are felt. Labs show a hemoglobin of 8.3, creatinine is 0.6. ASSESSMENT: Coronary artery disease, status post coronary artery bypass graft, patient is doing much better. Continue with the current medications.
--- NOTE | 2016-06-12 14:17 | P.PN ---
Subjective Principal diagnosis: Status post CABG POD #6 redo coronary artery bypass grafting 2 with left radial artery harvest and left radial artery to obtuse marginal coronary artery and endovascular vein harvest from the left greater saphenous vein with bypass of the posterior lateral branch. Patient was reevaluated today on 06/09/2016, attempted to wean and extubate the patient, however his pO2 remained very marginal on 50% FiO2 with a PEEP of 5. Chest x-ray continues to show some atelectasis mostly at the left base, hence I felt that the patient is not quite ready for weaning at this point. I did place the patient on a trial of pressure support of 8 and CPAP, but he was noted within half an hour to be quite tachypneic, and his O2 saturation was very marginal in the low 90s in spite of being at 50% FiO2. ABG showed a pO2 of 68 at best, hence I recommended one dose of Lasix 40 mg IV push, and held back on further weaning. I would place the patient again on assist control mode of mechanical ventilation, and we'll likely address weaning again later today or in a.m. The rest of the labs were reviewed, hemoglobin is 8.3 the PEEP status 4.8. Basic metabolic profile is relatively unremarkable. Patient was reevaluated today on 06/10/2016, his initial x-ray was a very poor quality, hence I repeated the chest x-ray and actually showed significant improvement in the left lower lobe. ABG was actually good today, and patient was given a trial on pressure support and CPAP, follow-up ABG was also acceptable, and this was on pressure support and CPAP showing a pO2 of 98 pCO2 of 42 pH of 7.45. Hence I went ahead and extubated the patient. Rest of the labs were relatively unremarkable, and if the patient desaturates overnight, we could potentially place the patient on BiPAP however a nasal cannula will be appropriate to start with. Patient was reevaluated today on 06/11/2016, tolerated the extubation well over the last 24 hours. Chest x-ray continues to show some atelectasis in the left lower lobe, however the patient is doing well with incentive spirometry, and he has a bit of a stronger cough today. WBC count is 5.2 hemoglobin is 8.6. Electrolytes and renal profile are normal. Patient denies any specific complaints. And he is not in any form of distress. Patient was reevaluated today on 06/12/2016, continues to do well, remains on nasal cannula, and his O2 saturation is in the high 90s. Patient denies any shortness of breath no cough no wheezing. Chest x-ray is about the same continues to show findings in the left lower lobe consistent with atelectasis. His CBC showed a hemoglobin of 8.3 electrolytes and renal profile are normal. Objective - Vital Signs Vital signs: Vital Signs Temp 98.2 F 06/12/16 12:00 Pulse 65 06/12/16 13:00 Resp 26 H 06/12/16 13:00 BP 114/62 06/12/16 13:00 Pulse Ox 94 L 06/12/16 13:00 Intake & Output 06/11/16 06/12/16 06/12/16 18:59 06:59 18:59 Intake Total 1384.858 722 500 Output Total 2197 713 0730 Balance 334.858 -198 -575 Weight 110.3 kg 110.3 kg Intake: IV 184 Lactated Ringers 1,000 ml 160 @ 20 mls/hr IV .Q24H [facility] Rx#:[id number] pressure bag 24 Intake, IV Titration 0.858 Amount Insulin Regular 100 unit 0.858 In Sodium Chloride 0.9% 100 ml @ Per Protocol IV .Q0M [facility]A Rx#:[id number] Oral 1200 722 500 Output: Urine 0098 927 4185 Other: Voiding Method Urinal Urinal Urinal # Voids 1 ABP, PAP, CO, CI - Last Documented Arterial Blood Pressure 94/49 Pulmonary Artery Pressure 47/18 Cardiac Output 8.7 Cardiac Index 4.3 - Exam Physical Exam: Revealed a 61-year-old white male on nasal cannula HEENT:[Neck is supple.] [No neck masses.] [No thyromegaly.] [No JVD.] Endotracheal tube is intact Chest: [Slightly diminished breath sounds at the left base, no crackles or rhonchi or wheezes.] Cardiac Exam: [Normal S1 and S2, no S3 gallop, no murmur. ] Abdomen: [Soft, nontender, no megaly, no rebound, no guarding, normal bowel sounds.] Extremities: [No clubbing, no edema, no cyanosis.] Neurological Exam: No focal neurologic deficit, patient is awake, and very appropriate. No focal deficit noted. - Labs CBC & Chem 7: 06/12/16 04:26 06/12/16 04:26 Labs: Abnormal Lab Results - Last 24 Hours (Table) 06/11/16 06/11/16 06/12/16 Range/Units 18:39 20:53 02:19 RBC (4.30-5.90) m/uL Hgb (13.0-17.5) gm/dL Hct (39.0-53.0) % Plt Count (150-450) k/uL Creatinine (0.66-1.25) mg/dL Glucose (74-99) mg/dL POC Glucose (mg/dL) 112 H 109 H 119 H (75-99) mg/dL Calcium (8.4-10.2) mg/dL 06/12/16 06/12/16 06/12/16 Range/Units 04:26 04:26 07:24 RBC 2.75 L (4.30-5.90) m/uL Hgb 8.3 L (13.0-17.5) gm/dL Hct 25.0 L (39.0-53.0) % Plt Count 142 L (150-450) k/uL Creatinine 0.60 L (0.66-1.25) mg/dL Glucose 113 H (74-99) mg/dL POC Glucose (mg/dL) 109 H (75-99) mg/dL Calcium 8.0 L (8.4-10.2) mg/dL 06/12/16 Range/Units 12:17 RBC (4.30-5.90) m/uL Hgb (13.0-17.5) gm/dL Hct (39.0-53.0) % Plt Count (150-450) k/uL Creatinine (0.66-1.25) mg/dL Glucose (74-99) mg/dL POC Glucose (mg/dL) 126 H (75-99) mg/dL Calcium (8.4-10.2) mg/dL Assessment and Plan Plan: Impression: Status post CABG, redo 2 with left radial artery harvest and left radial artery to obtuse marginal coronary artery and endovascular vein harvest from the left greater saphenous vein with bypass of the posterior lateral branch postoperative day # 6 Postoperative respiratory failure, failed extubation, patient had to be reintubated and placed on mechanical ventilation, I believe it is mostly because of atelectasis involving the left lower lobe, and possibly some component of congestive heart failure yesterday. Hence the patient will remain on mechanical ventilation today, and we'll readdress weaning and extubation in the next 24 hours. Patient was given a trial of weaning today on 06/09/2016, and obviously his pO2 remains marginal and he is almost there yet but not quite ready for extubation at this point. On 06/10/2016, patient was given a trial of pressure support and CPAP again, extubated uneventfully to a nasal cannula. Chest x-ray showed improvement, continues to have some minimal atelectasis in the left lower lobe, and hopefully that will improve with bronchodilators and incentive spirometry. On 06/11/2016, patient seems to be doing much better, tolerated the extubation well over the last 24 hours, we'll continue bronchodilators, incentive spirometry, encourage deep coughing and breathing, and hopefully ambulate. On 06/12/2016, patient continues to do well, he tolerated the extubation well over the last 2 days, chest x-ray still shows some atelectasis in the left lower lobe, hence we will continue incentive spirometry and bronchodilators, likely transfer to [facility] in the next 24 hours. Multiple comorbidities including history of hypertension, previous CABG, and history of hyperlipidemia. Time with Patient: Less than 30
[2016-06-12 17:43] LABS: Glucose,Whole Blood 130 mg/dL (75-99)
[2016-06-12] MEDS ORDERED: Potassium Replacement Protocol 1 EACH MISC MISCELLANE PRN (19:19)
[2016-06-12] MEDS: SENNOSIDES-DOCUSATE SODIUM 1 EACH TAB PO SCH (21:14)
[2016-06-12 21:15] LABS: Glucose,Whole Blood 118 mg/dL (75-99)
[2016-06-13] MEDS: DILTIAZEM ORAL 30 MG TAB PO SCH ×2 (03:11→08:47)
[2016-06-13] MEDS: INSULIN LISPRO (humaLOG) 300 UNIT/3 ML VIAL SQ SCH ×4 (03:11→21:49)
[2016-06-13 03:12] LABS: Glucose,Whole Blood 128 mg/dL (75-99)
[2016-06-13 04:34] LABS: CH 30.9; CHCM 34.2; HCT 24.2 % (39.0-53.0); HDW 3.92; HGB 8.2 gm/dL (13.0-17.5); MCH 30.9 pg (25.0-35.0); MCV 90.8 fL (80.0-100.0); Mean Platelet Volume 7.6; Poikilocytosis Slight; RBC 2.67 m/uL (4.30-5.90); RDW 14.4 % (11.5-15.5); WBC 5.4 k/uL (3.8-10.6)
[2016-06-13 04:41] LABS: Ionized Calcium 4.7 mg/dL (4.5-5.3)
[2016-06-13 04:48] LABS: Anion Gap 8 mmol/L; Blood Urea Nitrogen 19 mg/dL (9-20); Calcium 8.2 mg/dL (8.4-10.2); Carbon Dioxide 30 mmol/L (22-30); Chloride 97 mmol/L (98-107); Glucose 118 mg/dL (74-99); Non-African American GFR(MDRD) >60 (>60 ml/min/1.73 sqM); Phosphorous 3.1 mg/dL (2.5-4.5); Potassium 3.7 mmol/L (3.5-5.1); Sodium 135 mmol/L (137-145)
[2016-06-13 07:40] LABS: Glucose,Whole Blood 109 mg/dL (75-99)
[2016-06-13] MEDS ORDERED: POTASSIUM CHLORIDE ER 20 MEQ TAB.ER PO STA ×2 (07:52→12:02)
[2016-06-13] MEDS: IPRATROPIUM-ALBUTEROL 3 ML NEB INHALATION SCH ×4 (08:15→19:54)
--- NOTE | 2016-06-13 08:21 | P.PN ---
Subjective Principal diagnosis: Coronary artery disease of pala and autologous grafts. POD #7 redo coronary artery bypass grafting 2 with left radial artery harvest and left radial artery to obtuse marginal coronary artery and endovascular vein harvest from the left greater saphenous vein with bypass of the posterior lateral branch. Patient currently sitting up in bed, denies pain, states he feels better. Objective - Vital Signs Vital signs: Vital Signs Temp 98.2 F 06/12/16 12:00 Pulse 65 06/12/16 20:28 Resp 41 H 06/12/16 19:00 BP 128/62 06/12/16 19:00 Pulse Ox 97 06/12/16 20:16 Intake & Output 06/12/16 06/13/16 06/13/16 18:59 06:59 18:59 Intake Total 900 Output Total 1550 0 Balance -650 0 Weight 110.3 kg Intake: Oral 900 Output: Urine 1550 0 Other: Voiding Method Urinal Urinal ABP, PAP, CO, CI - Last Documented Arterial Blood Pressure 94/49 Pulmonary Artery Pressure 47/18 Cardiac Output 8.7 Cardiac Index 4.3 - Constitutional General appearance: Present: cooperative, no acute distress - Respiratory Details: lungs sounds diminished with faint crackles the left base, respirations even and nonlabored, remains on 10 L high flow nasal cannula. Able to achieve 1250 mL on incentive spirometry. - Cardiovascular Details: S1, S2 present. Regular rate and rhythm, sinus rhythm on telemetry. Chest stable. Heart hugger in place with patient demonstrating appropriate use. Trace bilateral lower extremity edema present. Teds, SCDs present. - Gastrointestinal Gastrointestinal Comment(s): Abdomen soft, nontender, nondistended. Positive bowel movement. Tolerating diet. - Genitourinary Genitourinary Comment(s): Voiding clear yellow urine per urinal. - Integumentary Integumentary Comment(s): Anterior chest wall incision covered with dry intact silver dressing. Left radial graft site well approximated. Right lower extremity EVH site well approximated. - Musculoskeletal Musculoskeletal Comment(s): Ambulating in hallway with assist 1. - Psychiatric Psychiatric: Present: A&O x's 3, appropriate affect, intact judgment & insight - Allied health notes Allied health notes reviewed: nursing - Labs CBC & Chem 7: 06/13/16 04:10 06/13/16 04:10 Labs: Abnormal Lab Results - Last 24 Hours (Table) 06/12/16 06/12/16 06/12/16 Range/Units 12:17 17:41 21:13 RBC (4.30-5.90) m/uL Hgb (13.0-17.5) gm/dL Hct (39.0-53.0) % Sodium (137-145) mmol/L Chloride (98-107) mmol/L Creatinine (0.66-1.25) mg/dL Glucose (74-99) mg/dL POC Glucose (mg/dL) 126 H 130 H 118 H (75-99) mg/dL Calcium (8.4-10.2) mg/dL 06/13/16 06/13/16 06/13/16 Range/Units 03:10 04:10 04:10 RBC 2.67 L (4.30-5.90) m/uL Hgb 8.2 L (13.0-17.5) gm/dL Hct 24.2 L (39.0-53.0) % Sodium 135 L (137-145) mmol/L Chloride 97 L (98-107) mmol/L Creatinine 0.60 L (0.66-1.25) mg/dL Glucose 118 H (74-99) mg/dL POC Glucose (mg/dL) 128 H (75-99) mg/dL Calcium 8.2 L (8.4-10.2) mg/dL Assessment and Plan (1) Coronary artery disease Status: Acute (2) Hypertension Status: Acute (3) Hyperlipidemia Status: Acute (4) PAD (peripheral artery disease) Status: Acute (5) Postoperative acute respiratory failure Status: Acute Plan: 1. Continue aspirin, Plavix, Lipitor, heparin, Coreg. 2. Continue Cardizem, transition to long-acting Cardizem 120 mg daily today. 3. Lasix ordered per pulmonary. 4. Continue to encourage incentive spirometry use, effective coughing while holding Heart Hugger appropriately. 5. Glucose control per primary service when able. 6. GI DVT prophylaxis. 7. Increase activity, continue follow with physical therapy. 8. Transfer to [facility] today. Time with Patient: Greater than 30
[2016-06-13] MEDS: DILTIAZEM CD 120 MG CAP.ER.24H PO SCH (08:44)
[2016-06-13] MEDS: HEPARIN SODIUM,PORCINE 5,000 UNIT/ML 1 ML VIAL SQ SCH ×3 (08:45→21:50)
[2016-06-13] MEDS: ASPIRIN 325 MG TAB PO SCH (08:46)
[2016-06-13] MEDS: CLOPIDOGREL 75 MG TAB PO SCH (08:46)
[2016-06-13] MEDS: SERTRALINE 100 MG TAB PO SCH (08:46)
[2016-06-13] MEDS: CARVEDILOL 6.25 MG TAB PO SCH ×2 (08:46→21:49)
[2016-06-13] MEDS: FUROSEMIDE 10 MG/ML 2 ML VIAL IV SCH (08:46)
[2016-06-13] MEDS: PANTOPRAZOLE 40 MG/10 ML VIAL IVP SCH (08:46)
[2016-06-13] MEDS: ATORVASTATIN 40 MG TAB PO SCH (08:46)
[2016-06-13] MEDS: HYDROcodone/APAP 7.5-325MG 1 EACH TAB PO PRN ×3 (08:48→20:12)
[2016-06-13] MEDS: INSULIN DETEMIR 100 UNIT/ML 10 ML VIAL SQ SCH (08:54)
--- NOTE | 2016-06-13 11:43 | PN ---
A 61-year-old gentleman who has CAD, status post CABG, doing well and is currently in the process of being transferred out. On exam, heart rate is 70 beats per minute, blood pressure is 114/50, respiratory rate is 18. Chest exam reveals diminished air entry at the bases. Heart exam reveals first and second heart sounds. No gallop. Abdomen is soft. Exam of the extremities did not reveal any edema. Peripheral pulses are felt. Labs show a hemoglobin of 8.2, platelet count is 170, creatinine is 0.6. ASSESSMENT: Coronary artery disease, status post redo coronary artery bypass graft, patient is doing better. He will be transferred out.
--- NOTE | 2016-06-13 11:50 | P.PN ---
Subjective POD #7 redo coronary artery bypass grafting 2 with left radial artery harvest and left radial artery to obtuse marginal coronary artery and endovascular vein harvest from the left greater saphenous vein with bypass of the posterior lateral branch. He was extubated on 06/07/2016 but required reintubation on 11/2016 and then was successfully extubated on 06/10/2016. The patient is seen again today 06/13/2016 in the intensive care unit. He is awake and alert in no acute distress. He is sitting up in the chair at the bedside. He does continue to require 10 L of high flow nasal cannula to maintain O2 saturations greater than 90%. He is doing well with the incentive spirometer currently pulling 1250 MLS. The plan is for transfer out of the intensive care unit today. He is on no drips. Objective - Vital Signs Vital signs: Vital Signs Temp 98.2 F 06/13/16 08:00 Pulse 70 06/13/16 10:00 Resp 15 06/13/16 10:00 BP 114/58 06/13/16 10:00 Pulse Ox 97 06/13/16 10:00 Intake & Output 06/12/16 06/13/16 06/13/16 18:59 06:59 18:59 Intake Total 900 1000 500 Output Total 1550 300 400 Balance -650 700 100 Weight 110.3 kg 101.9 kg Intake: Oral 900 1000 Tube Feeding 500 Output: Urine 1550 300 400 Other: Voiding Method Urinal Urinal Urinal ABP, PAP, CO, CI - Last Documented Arterial Blood Pressure 94/49 Pulmonary Artery Pressure 47/18 Cardiac Output 8.7 Cardiac Index 4.3 - Exam GENERAL EXAM: Alert, active, comfortable in no apparent distress. HEAD: Normocephalic. EYES: Normal reaction of pupils, equal size. NOSE: Clear with pink turbinates. THROAT: No erythema or exudates. NECK: No masses, no JVD. CHEST: No chest wall deformity. Dressing is dry and intact. LUNGS: Equal air entry with crackles in the posterior bases.. CVS: S1 and S2 normal with no audible murmurs, regular rhythm. ABDOMEN: No hepatosplenomegaly, normal bowel sounds, no guarding or rigidity. SPINE: No scoliosis or deformity SKIN: No rashes CENTRAL NERVOUS SYSTEM: No focal deficits, tone is normal in all 4 extremities. Extremities: There is trace peripheral edema. No clubbing, no cyanosis. Peripheral pulses are intact. - Labs CBC & Chem 7: 06/13/16 04:10 06/13/16 04:10 Labs: Abnormal Lab Results - Last 24 Hours (Table) 06/12/16 06/12/16 06/12/16 Range/Units 12: 17:41 21:13 RBC (4.30-5.90) m/uL Hgb (13.0-17.5) gm/dL Hct (39.0-53.0) % Sodium (137-145) mmol/L Chloride (98-107) mmol/L Creatinine (0.66-1.25) mg/dL Glucose (74-99) mg/dL POC Glucose (mg/dL) 126 H 130 H 118 H (75-99) mg/dL Calcium (8.4-10.2) mg/dL 06/13/16 06/13/16 06/13/16 Range/Units 03:10 04:10 04:10 RBC 2.67 L (4.30-5.90) m/uL Hgb 8.2 L (13.0-17.5) gm/dL Hct 24.2 L (39.0-53.0) % Sodium 135 L (137-145) mmol/L Chloride 97 L (98-107) mmol/L Creatinine 0.60 L (0.66-1.25) mg/dL Glucose 118 H (74-99) mg/dL POC Glucose (mg/dL) 128 H (75-99) mg/dL Calcium 8.2 L (8.4-10.2) mg/dL 06/13/16 Range/Units 07:38 RBC (4.30-5.90) m/uL Hgb (13.0-17.5) gm/dL Hct (39.0-53.0) % Sodium (137-145) mmol/L Chloride (98-107) mmol/L Creatinine (0.66-1.25) mg/dL Glucose (74-99) mg/dL POC Glucose (mg/dL) 109 H (75-99) mg/dL Calcium (8.4-10.2) mg/dL Assessment and Plan Plan: Impression: #1 Coronary artery disease status post redo coronary artery bypass grafting 2, postoperative day #7. #2 Postoperative hypoxic respiratory failure failed extubation requiring reintubation and then subsequent successful extubation on 06/10/2016. #3 Hypertension. #4 Hyperlipidemia. Plan: Patient was seen and evaluated by Dr. Grimes. His chest x-ray and labs were reviewed. The patient is stable from the pulmonary and critical care standpoint and could be transferred out of the intensive care unit today. We' ll continue with his current medications. He is again encouraged regarding the increased use of the incentive spirometer and cough and deep breathing exercises. We'll continue with bronchodilators and diuretics. We will attempt to wean down his FiO2 well maintaining O2 saturations greater than 90%. We'll continue to follow make further recommendations based on his clinical status.
[2016-06-13 11:55] LABS: Glucose,Whole Blood 125 mg/dL (75-99)
[2016-06-13 17:01] LABS: Glucose,Whole Blood 115 mg/dL (75-99)
[2016-06-13 20:47] LABS: Glucose,Whole Blood 112 mg/dL (75-99)
[2016-06-13] MEDS: MUPIROCIN 2% OINT 22 GM TUBE NASAL SCH ×2 (21:49)
[2016-06-14] MEDS: SENNOSIDES-DOCUSATE SODIUM 1 EACH TAB PO SCH ×2 (00:39→20:22)
[2016-06-14] MEDS: HYDROcodone/APAP 7.5-325MG 1 EACH TAB PO PRN ×4 (00:40→23:18)
[2016-06-14 02:24] LABS: Glucose,Whole Blood 144 mg/dL (75-99)
[2016-06-14] MEDS: INSULIN LISPRO (humaLOG) 300 UNIT/3 ML VIAL SQ SCH ×5 (02:32→21:38)
[2016-06-14 06:05] LABS: Glucose,Whole Blood 128 mg/dL (75-99)
[2016-06-14] MEDS: PANTOPRAZOLE 40 MG TABLET PO SCH (06:31)
[2016-06-14] MEDS: HEPARIN SODIUM,PORCINE 5,000 UNIT/ML 1 ML VIAL SQ SCH ×3 (06:31→20:23)
[2016-06-14] MEDS: CARVEDILOL 6.25 MG TAB PO SCH ×2 (06:31→17:24)
[2016-06-14 07:17] LABS: CH 30.5; HCT 25.3 % (39.0-53.0); HDW 3.97; HGB 8.4 gm/dL (13.0-17.5); Hypochromasia Slight; MCHC 33.4 g/dL (31.0-37.0); MCV 92.8 fL (80.0-100.0); Mean Platelet Volume 7.7; Poikilocytosis Slight; RBC 2.72 m/uL (4.30-5.90); RDW 14.6 % (11.5-15.5); WBC 5.2 k/uL (3.8-10.6)
--- NOTE | 2016-06-14 07:20 | XR ---
EXAMINATION TYPE: XR chest 2V DATE OF EXAM: 06/14/2016 6:20 AM COMPARISON: Chest x-ray 2 days ago. HISTORY: Postop CABG procedure with shortness of breath TECHNIQUE: Frontal and lateral views of the chest are obtained. FINDINGS: Post CABG changes with mediastinal clips and sternal wires is redemonstrated. There is stab le cardiomegaly. There is patchy left greater than right bibasilar atelectasis and/or infiltrate rede monstrated. A small left pleural effusion cannot be excluded. Upper lungs are clear without pneumotho rax seen bilaterally. Osseous structures are intact. IMPRESSION: Overall stable findings, cardiomegaly and left greater than right bibasilar infiltrate a nd/or atelectasis with probable small left pleural effusion.
[2016-06-14 07:36] LABS: ALT 155 U/L (21-72); AST 117 U/L (17-59); Alkaline Phosphatase 186 U/L (38-126); Anion Gap 13 mmol/L; Blood Urea Nitrogen 18 mg/dL (9-20); Calcium 8.5 mg/dL (8.4-10.2); Carbon Dioxide 28 mmol/L (22-30); Chloride 99 mmol/L (98-107); Glucose 109 mg/dL (74-99); Non-African American GFR(MDRD) >60 (>60 ml/min/1.73 sqM); Potassium 4.1 mmol/L (3.5-5.1); Sodium 140 mmol/L (137-145); Total Bilirubin 1.1 mg/dL (0.2-1.3); Total Protein 6.6 g/dL (6.3-8.2)
[2016-06-14] MEDS: IPRATROPIUM-ALBUTEROL 3 ML NEB INHALATION SCH ×4 (08:50→19:46)
[2016-06-14] MEDS: CLOPIDOGREL 75 MG TAB PO SCH (09:51)
[2016-06-14] MEDS: FUROSEMIDE 10 MG/ML 2 ML VIAL IV SCH ×2 (09:51→11:23)
[2016-06-14] MEDS: ASPIRIN 325 MG TAB PO SCH (09:51)
[2016-06-14] MEDS: DILTIAZEM CD 120 MG CAP.ER.24H PO SCH (09:51)
[2016-06-14] MEDS: MUPIROCIN 2% OINT 22 GM TUBE NASAL SCH ×2 (09:52→20:22)
[2016-06-14] MEDS: INSULIN DETEMIR 100 UNIT/ML 10 ML VIAL SQ SCH (09:52)
[2016-06-14] MEDS: SERTRALINE 100 MG TAB PO SCH (09:53)
[2016-06-14] MEDS: LOSARTAN 25 MG TAB PO SCH (09:53)
[2016-06-14 11:46] LABS: Glucose,Whole Blood 129 mg/dL (75-99)
[2016-06-14 11:58] VITALS: BMI 33.1
--- NOTE | 2016-06-14 14:03 | P.PN ---
Subjective Is a 61-year-old gentleman is admitted to the hospital for a redo of CABG 2 postop day 6 Patient is seen in medical consultation for management of chronic medical conditions. Patient is currently on Levaquin liters supplement oxygen states to be more short of breath at rest. Denies having any chest pressure does have a cough that is productive of yellowish phlegm. No abdominal pain noted. Patient denies having any tenderness in the lower extremities, headaches, nausea, vomiting. Underwent a left radial artery harvest to the upper twos marginal coronary artery and endovascular vein harvest from the great saphenous vein to the posterior lateral branch. Apparently was on insulin drip until overnight. However was turned off patient was having glucose levels between 100 and 180. Thereafter I directed to start Levemir at 15 units with NovoLog sliding scale. currently on 4 L supplement oxygen. Denies having any chest pain. States that he gets tired with minimal exertion. Moving his bowels today. Objective - Vital Signs Vital signs: Vital Signs Temp 97 F L 06/14/16 11:14 Pulse 68 06/14/16 11:54 Resp 18 06/14/16 11:54 BP 105/69 06/14/16 11:14 Pulse Ox 95 06/14/16 11:14 Intake & Output 06/13/16 06/14/16 06/14/16 18:59 06:59 18:59 Intake Total 500 640 80 Output Total 800 Balance -300 640 80 Weight 101.9 kg 110 kg 107.8 kg Intake: Oral 0 640 80 Tube Feeding 500 Output: Urine 800 Other: Voiding Method Urinal Urinal Urinal # Voids 0 1 ABP, PAP, CO, CI - Last Documented Arterial Blood Pressure 94/49 Pulmonary Artery Pressure 47/18 Cardiac Output 8.7 Cardiac Index 4.3 - Exam Physical exam Gen. appearance oriented 3 in no distress Neck is supple no JVD Lungs crackles at the bases Heart S1-S2 heard regular rate and rhythm no murmurs appreciated Abdomen is soft nontender no organomegaly bowel sounds are intact Neurologically cranial nerves II-12 grossly intact no focal motor or sensory deficits noted Skin no abnormalities appreciated - Labs CBC & Chem 7: 06/14/16 06:52 06/14/16 06:52 Labs: Abnormal Lab Results - Last 24 Hours (Table) 06/13/16 06/13/16 06/14/16 Range/Units 16:58 20:45 02:22 RBC (4.30-5.90) m/uL Hgb (13.0-17.5) gm/dL Hct (39.0-53.0) % Glucose (74-99) mg/dL POC Glucose (mg/dL) 115 H 112 H 144 H (75-99) mg/dL AST (17-59) U/L ALT (21-72) U/L Alkaline Phosphatase (38-126) U/L Albumin (3.5-5.0) g/dL 06/14/16 06/14/16 06/14/16 Range/Units 06:04 06:52 06:52 RBC 2.72 L (4.30-5.90) m/uL Hgb 8.4 L (13.0-17.5) gm/dL Hct 25.3 L (39.0-53.0) % Glucose 109 H (74-99) mg/dL POC Glucose (mg/dL) 128 H (75-99) mg/dL AST 117 H (17-59) U/L ALT 155 H (21-72) U/L Alkaline Phosphatase 186 H (38-126) U/L Albumin 3.4 L (3.5-5.0) g/dL 06/14/16 Range/Units 11:45 RBC (4.30-5.90) m/uL Hgb (13.0-17.5) gm/dL Hct (39.0-53.0) % Glucose (74-99) mg/dL POC Glucose (mg/dL) 129 H (75-99) mg/dL AST (17-59) U/L ALT (21-72) U/L Alkaline Phosphatase (38-126) U/L Albumin (3.5-5.0) g/dL Assessment and Plan Plan: #1 CAD status post redo of CABG 2 #2 history of hypertension #3 dyslipidemia #4 diabetes mellitus with hyperglycemia #5 anemia as expected from surgery #6 acute hypoxic respiratory failure improving currently on 4 L supplement o2 Plan Continue current insulin regimen. PTOT. Blood pressures are stable.
--- NOTE | 2016-06-14 14:41 | P.PN ---
Subjective Principal diagnosis: CABG This is a 61-year-old gentleman who is status post coronary artery bypass grafting surgery. He's being followed currently on the telemetry unit. Blood pressure 138/70 , heart rate in the 60s to 70s. Sitting up in the chair at the time of my examination, overall feeling well. Hemoglobin today 8.4, AST 117, ALT 155, alk phos 186. We will resume patient's Cozaar at a lower dose. Lipitor is currently on hold because of elevated liver functions. We will continue to monitor this. Objective - Vital Signs Vital signs: Vital Signs Temp 97 F L 06/14/16 11:14 Pulse 68 06/14/16 11:54 Resp 18 06/14/16 11:54 BP 105/69 06/14/16 11:14 Pulse Ox 95 06/14/16 11:14 Intake & Output 06/13/16 06/14/16 06/14/16 18:59 06:59 18:59 Intake Total 500 640 80 Output Total 800 Balance -300 640 80 Weight 101.9 kg 110 kg 107.8 kg Intake: Oral 0 640 80 Tube Feeding 500 Output: Urine 800 Other: Voiding Method Urinal Urinal Urinal # Voids 0 1 ABP, PAP, CO, CI - Last Documented Arterial Blood Pressure 94/49 Pulmonary Artery Pressure 47/18 Cardiac Output 8.7 Cardiac Index 4.3 - Exam PHYSICAL EXAMINATION: HEENT: Head is atraumatic, normocephalic. Pupils equal, round. Neck is supple. There is no elevated jugular venous pressure. HEART EXAMINATION: Heart S1, S2 normal. No murmur or gallop heard. CHEST EXAMINATION: Lungs are clear with diminished air entry to bilateral bases. ABDOMEN: Soft, nontender. Bowel sounds are heard. No organomegaly noted. EXTREMITIES: 2+ peripheral pulses with trace evidence of peripheral edema and no calf tenderness noted. NEUROLOGIC patient is awake, alert and oriented -3. . - Labs CBC & Chem 7: 06/14/16 06:52 06/14/16 06:52 Labs: Abnormal Lab Results - Last 24 Hours (Table) 06/13/16 06/13/16 06/14/16 Range/Units 16:58 20:45 02:22 RBC (4.30-5.90) m/uL Hgb (13.0-17.5) gm/dL Hct (39.0-53.0) % Glucose (74-99) mg/dL POC Glucose (mg/dL) 115 H 112 H 144 H (75-99) mg/dL AST (17-59) U/L ALT (21-72) U/L Alkaline Phosphatase (38-126) U/L Albumin (3.5-5.0) g/dL 06/14/16 06/14/16 06/14/16 Range/Units 06:04 06:52 06:52 RBC 2.72 L (4.30-5.90) m/uL Hgb 8.4 L (13.0-17.5) gm/dL Hct 25.3 L (39.0-53.0) % Glucose 109 H (74-99) mg/dL POC Glucose (mg/dL) 128 H (75-99) mg/dL AST 117 H (17-59) U/L ALT 155 H (21-72) U/L Alkaline Phosphatase 186 H (38-126) U/L Albumin 3.4 L (3.5-5.0) g/dL 06/14/16 Range/Units 11:45 RBC (4.30-5.90) m/uL Hgb (13.0-17.5) gm/dL Hct (39.0-53.0) % Glucose (74-99) mg/dL POC Glucose (mg/dL) 129 H (75-99) mg/dL AST (17-59) U/L ALT (21-72) U/L Alkaline Phosphatase (38-126) U/L Albumin (3.5-5.0) g/dL Assessment and Plan (1) S/P CABG (coronary artery bypass graft) Status: Acute (2) Hyperlipidemia Status: Acute (3) Hypertension Status: Acute (4) PAD (peripheral artery disease) Status: Acute Plan: From cardiology's perspective, we will initiate Cozaar 25 mg daily. Continue to hold statin until the liver functions improve. Patient was also encouraged regarding the use of the incentive spirometry. DNP note has been reviewed, I agree with a documented findings and plan of care. Patient was seen and examined.
--- NOTE | 2016-06-14 15:46 | P.PN ---
Subjective Progress note dated 06/14/2016 This is a 61-year-old white male with a history of postop day #8 status post redo bypass grafting 2. The patient is doing relatively well. Feeling relatively well. His been seen in the last couple days along with our nurse practitioner. He continues to do well. According to the cardiothoracic historian research assistant, he may be discharged home tomorrow. Currently his saturations are excellent. Objective - Vital Signs Vital signs: Vital Signs Temp 97 F L 06/14/16 11:14 Pulse 78 06/14/16 15:40 Resp 18 06/14/16 11:54 BP 105/69 06/14/16 11:14 Pulse Ox 95 06/14/16 11:14 Intake & Output 06/13/16 06/14/16 06/14/16 18:59 06:59 18:59 Intake Total 500 640 80 Output Total 800 Balance -300 640 80 Weight 101.9 kg 110 kg 107.8 kg Intake: Oral 0 640 80 Tube Feeding 500 Output: Urine 800 Other: Voiding Method Urinal Urinal Urinal # Voids 0 1 ABP, PAP, CO, CI - Last Documented Arterial Blood Pressure 94/49 Pulmonary Artery Pressure 47/18 Cardiac Output 8.7 Cardiac Index 4.3 - Exam No acute distress, oriented 3. HEENT examination is grossly unremarkable. Neck is Supple. Full range of motion. Cardiovascular examination reveals regular rhythm rate. S1-S2 normal. Lungs reveal few scattered rhonchi. No wheezes. Abdomen soft bowel sounds are heard. Extremities are intact. - Labs CBC & Chem 7: 06/14/16 06:52 06/14/16 06:52 Labs: Abnormal Lab Results - Last 24 Hours (Table) 06/13/16 06/13/16 06/14/16 Range/Units 16:58 20:45 02:22 RBC (4.30-5.90) m/uL Hgb (13.0-17.5) gm/dL Hct (39.0-53.0) % Glucose (74-99) mg/dL POC Glucose (mg/dL) 115 H 112 H 144 H (75-99) mg/dL AST (17-59) U/L ALT (21-72) U/L Alkaline Phosphatase (38-126) U/L Albumin (3.5-5.0) g/dL 0206/14/16 06/14/16 Range/Units 06:04 06:52 06:52 RBC 2.72 L (4.30-5.90) m/uL Hgb 8.4 L (13.0-17.5) gm/dL Hct 25.3 L (39.0-53.0) % Glucose 109 H (74-99) mg/dL POC Glucose (mg/dL) 128 H (75-99) mg/dL AST 117 H (17-59) U/L ALT 155 H (21-72) U/L Alkaline Phosphatase 186 H (38-126) U/L Albumin 3.4 L (3.5-5.0) g/dL 06/14/16 Range/Units 11:45 RBC (4.30-5.90) m/uL Hgb (13.0-17.5) gm/dL Hct (39.0-53.0) % Glucose (74-99) mg/dL POC Glucose (mg/dL) 129 H (75-99) mg/dL AST (17-59) U/L ALT (21-72) U/L Alkaline Phosphatase (38-126) U/L Albumin (3.5-5.0) g/dL Assessment and Plan (1) Coronary artery disease Status: Acute (2) Hyperlipidemia Status: Acute (3) Hypertension Status: Acute (4) PAD (peripheral artery disease) Status: Acute (5) Postoperative acute respiratory failure Status: Acute (6) S/P CABG (coronary artery bypass graft) Status: Acute Plan: Plan dated 06/14/2016 The patient will continue to work on his incentive spirometer. He needs to focus on deep breathing coughing and clearing of secretions. We'll continue with the updrafts. We'll continue to watch his chest x-rays. Possible discharge tomorrow. Time with Patient: Less than 30
[2016-06-14 16:47] LABS: Glucose,Whole Blood 113 mg/dL (75-99)
[2016-06-14 21:18] LABS: Glucose,Whole Blood 109 mg/dL (75-99)
[2016-06-14 21:18] LABS: Anion Gap 10 mmol/L; Blood Urea Nitrogen 22 mg/dL (9-20); Calcium 8.4 mg/dL (8.4-10.2); Carbon Dioxide 29 mmol/L (22-30); Chloride 95 mmol/L (98-107); Glucose 114 mg/dL (74-99); Magnesium 1.9 mg/dL (1.6-2.3); Non-African American GFR(MDRD) >60 (>60 ml/min/1.73 sqM); Potassium 3.7 mmol/L (3.5-5.1); Sodium 134 mmol/L (137-145)
[2016-06-15] MEDS: INSULIN LISPRO (humaLOG) 300 UNIT/3 ML VIAL SQ SCH ×5 (02:15→21:00)
[2016-06-15 02:47] LABS: Glucose,Whole Blood 116 mg/dL (75-99)
[2016-06-15 06:18] LABS: Glucose,Whole Blood 113 mg/dL (75-99)
[2016-06-15] MEDS: HYDROcodone/APAP 7.5-325MG 1 EACH TAB PO PRN ×4 (06:27→22:47)
[2016-06-15] MEDS: HEPARIN SODIUM,PORCINE 5,000 UNIT/ML 1 ML VIAL SQ SCH ×3 (06:28→22:47)
[2016-06-15] MEDS: CARVEDILOL 6.25 MG TAB PO SCH ×2 (06:28→17:24)
[2016-06-15] MEDS: PANTOPRAZOLE 40 MG TABLET PO SCH (06:28)
[2016-06-15 06:31] LABS: CH 30.4; CHCM 33.4; HCT 23.5 % (39.0-53.0); HDW 4.14; HGB 7.7 gm/dL (13.0-17.5); Hypochromasia Slight; MCH 29.9 pg (25.0-35.0); MCHC 32.7 g/dL (31.0-37.0); MCV 91.5 fL (80.0-100.0); Mean Platelet Volume 7.4; Poikilocytosis Moderate; RBC 2.57 m/uL (4.30-5.90); RDW 14.9 % (11.5-15.5); WBC 5.2 k/uL (3.8-10.6)
[2016-06-15 07:02] LABS: ALT 127 U/L (21-72); AST 70 U/L (17-59); Alkaline Phosphatase 169 U/L (38-126); Anion Gap 10 mmol/L; Blood Urea Nitrogen 18 mg/dL (9-20); Calcium 8.2 mg/dL (8.4-10.2); Carbon Dioxide 29 mmol/L (22-30); Chloride 99 mmol/L (98-107); Glucose 105 mg/dL (74-99); Non-African American GFR(MDRD) >60 (>60 ml/min/1.73 sqM); Potassium 3.9 mmol/L (3.5-5.1); Sodium 138 mmol/L (137-145); Total Bilirubin 0.9 mg/dL (0.2-1.3); Total Protein 6.1 g/dL (6.3-8.2)
[2016-06-15] MEDS: IPRATROPIUM-ALBUTEROL 3 ML NEB INHALATION SCH ×4 (07:42→19:11)
[2016-06-15] MEDS: CLOPIDOGREL 75 MG TAB PO SCH (09:32)
[2016-06-15] MEDS: SERTRALINE 100 MG TAB PO SCH (09:32)
[2016-06-15] MEDS: LOSARTAN 25 MG TAB PO SCH (09:32)
[2016-06-15] MEDS: DILTIAZEM CD 120 MG CAP.ER.24H PO SCH (09:32)
[2016-06-15] MEDS: ASPIRIN 325 MG TAB PO SCH (09:32)
[2016-06-15] MEDS: MUPIROCIN 2% OINT 22 GM TUBE NASAL SCH ×2 (09:32→22:47)
[2016-06-15] MEDS: INSULIN DETEMIR 100 UNIT/ML 10 ML VIAL SQ SCH (09:37)
--- NOTE | 2016-06-15 09:52 | P.PN ---
Subjective Principal diagnosis: Coronary artery disease of [place] and autologous grafts. POD #9 redo coronary artery bypass grafting 2 with left radial artery harvest and left radial artery to obtuse marginal coronary artery and endovascular vein harvest from the left greater saphenous vein with bypass of the posterior lateral branch. Patient currently sitting up in [place], denies pain, states he feels better everyday. Objective - Vital Signs Vital signs: Vital Signs Temp 97.1 F L 06/15/16 04:00 Pulse 94 06/15/16 04:00 Resp 17 06/15/16 04:00 BP 124/54 06/15/16 04:00 Pulse Ox 94 L 06/15/16 04:00 Intake & Output 06/14/16 06/15/16 06/15/16 18:59 06:59 18:59 Intake Total 590 420 Output Total 250 Balance 590 170 Weight 107.8 kg 109.6 kg Intake: Oral 590 420 Output: Urine 250 Other: Voiding Method Urinal Urinal # Voids 0 ABP, PAP, CO, CI - Last Documented Arterial Blood Pressure 94/49 Pulmonary Artery Pressure 47/18 Cardiac Output 8.7 Cardiac Index 4.3 - Constitutional General appearance: Present: cooperative, no acute distress - Respiratory Details: Lungs sounds diminished bilaterally, respirations even, nonlabored. Currently on 2 L nasal cannula. Able to achieve 1000 mL on his incentive spirometry. - Cardiovascular Details: S1, S2 present. Regular rate and rhythm, sinus rhythm on telemetry with occasional PVCs. Chest stable. Heart hugger in place with patient demonstrating appropriate use. No edema present. Teds, SCDs in place. - Gastrointestinal Gastrointestinal Comment(s): Abdomen soft, nontender, nondistended. Active bowel sounds 4 quadrants. Tolerating diet. No bowel movement 3 days. - Genitourinary Genitourinary Comment(s): Patient continues to void clear yellow urine per urinal. - Integumentary Integumentary Comment(s): Anterior chest incision covered with dry intact silver dressing. Left radial graft site well approximated. Right lower extremity EVH site well approximated. - Musculoskeletal Musculoskeletal Comment(s): Ambulating in hallway with assistance x 1. Musculoskeletal: Present: gait normal - Psychiatric Psychiatric: Present: A&O x's 3, appropriate affect, intact judgment & insight - Allied health notes Allied health notes reviewed: case management - Labs CBC & Chem 7: 06/15/16 05:51 06/15/16 05:51 Labs: Abnormal Lab Results - Last 24 Hours (Table) 06/14/16 06/14/16 06/14/16 Range/Units 11:45 16:46 20:50 RBC (4.30-5.90) m/uL Hgb (13.0-17.5) gm/dL Hct (39.0-53.0) % Sodium 134 L (137-145) mmol/L Chloride 95 L (98-107) mmol/L BUN 22 H (9-20) mg/dL Glucose 114 H (74-99) mg/dL POC Glucose (mg/dL) 129 H 113 H (75-99) mg/dL Calcium (8.4-10.2) mg/dL AST (17-59) U/L ALT (21-72) U/L Alkaline Phosphatase (38-126) U/L Total Protein (6.3-8.2) g/dL Albumin (3.5-5.0) g/dL 06/14/16 06/15/16 06/15/16 Range/Units 21:14 02:44 05:51 RBC 2.57 L (4.30-5.90) m/uL Hgb 7.7 L (13.0-17.5) gm/dL Hct 23.5 L (39.0-53.0) % Sodium (137-145) mmol/L Chloride (98-107) mmol/L BUN (9-20) mg/dL Glucose (74-99) mg/dL POC Glucose (mg/dL) 109 H 116 H (75-99) mg/dL Calcium (8.4-10.2) mg/dL AST (17-59) U/L ALT (21-72) U/L Alkaline Phosphatase (38-126) U/L Total Protein (6.3-8.2) g/dL Albumin (3.5-5.0) g/dL 06/15/16 06/15/16 Range/Units 05:51 06:03 RBC (4.30-5.90) m/uL Hgb (13.0-17.5) gm/dL Hct (39.0-53.0) % Sodium (137-145) mmol/L Chloride (98-107) mmol/L BUN (9-20) mg/dL Glucose 105 H (74-99) mg/dL POC Glucose (mg/dL) 113 H (75-99) mg/dL Calcium 8.2 L (8.4-10.2) mg/dL AST 70 H (17-59) U/L ALT 127 H (21-72) U/L Alkaline Phosphatase 169 H (38-126) U/L Total Protein 6.1 L (6.3-8.2) g/dL Albumin 3.1 L (3.5-5.0) g/dL Assessment and Plan (1) Coronary artery disease Status: Acute (2) Hypertension Status: Acute (3) Hyperlipidemia Status: Acute (4) PAD (peripheral artery disease) Status: Acute (5) Postoperative acute respiratory failure Status: Acute Plan: 1. Continue aspirin, Plavix, heparin, Coreg. Cozaar added per cardiology. 2. Continue Cardizem for radial graft site protection, A. fib prophylaxis. 3. Lipitor stopped secondary to elevated liver enzymes. Will resume once liver enzymes have returned to normal. 4. Lasix ordered per pulmonary. 5. Continue to encourage incentive spirometry use, effective coughing while holding Heart Hugger appropriately. 6. Glucose control per primary service. 7. GI DVT prophylaxis. 8. Increase activity, continue follow with physical therapy. 9. Plan to discharge home with home care soon. Awaiting DC approval for home care. Time with Patient: Greater than 30
[2016-06-15] MEDS: FUROSEMIDE 10 MG/ML 2 ML VIAL IV SCH (10:53)
--- NOTE | 2016-06-15 11:45 | P.PN ---
Subjective Principal diagnosis: CABG This is a 61-year-old gentleman who is status post coronary artery bypass grafting surgery. He's being followed currently on the telemetry unit. Blood pressure 110/55 , heart rate in the 80s. Sitting up in the chair at the time of my examination, overall feeling well. Hemoglobin today 7.7, LFTs improving. Lipitor is currently on hold because of elevated liver functions. We will continue to monitor this. Objective - Vital Signs Vital signs: Vital Signs Temp 97.0 F L 06/15/16 07:53 Pulse 88 06/15/16 11:20 Resp 18 06/15/16 10:13 BP 129/59 06/15/16 07:53 Pulse Ox 84 L 06/15/16 10:13 Intake & Output 06/14/16 06/15/16 06/15/16 18:59 06:59 18:59 Intake Total 590 420 300 Output Total 250 Balance 590 170 300 Weight 107.8 kg 109.6 kg Intake: Oral 590 420 300 Output: Urine 250 Other: Voiding Method Urinal Urinal Urinal # Voids 0 ABP, PAP, CO, CI - Last Documented Arterial Blood Pressure 94/49 Pulmonary Artery Pressure 47/18 Cardiac Output 8.7 Cardiac Index 4.3 - Exam PHYSICAL EXAMINATION: HEENT: Head is atraumatic, normocephalic. Pupils equal, round. Neck is supple. There is no elevated jugular venous pressure. HEART EXAMINATION: Heart S1, S2 normal. No murmur or gallop heard. CHEST EXAMINATION: Lungs are clear with diminished air entry to bilateral bases. ABDOMEN: Soft, nontender. Bowel sounds are heard. No organomegaly noted. EXTREMITIES: 2+ peripheral pulses with trace evidence of peripheral edema and no calf tenderness noted. NEUROLOGIC patient is awake, alert and oriented -3. . - Labs CBC & Chem 7: 06/15/16 05:51 06/15/16 05:51 Labs: Abnormal Lab Results - Last 24 Hours (Table) 06/14/16 06/14/16 06/14/16 Range/Units 11:45 16:46 20:50 RBC (4.30-5.90) m/uL Hgb (13.0-17.5) gm/dL Hct (39.0-53.0) % Sodium 134 L (137-145) mmol/L Chloride 95 L (98-107) mmol/L BUN 22 H (9-20) mg/dL Glucose 114 H (74-99) mg/dL POC Glucose (mg/dL) 129 H 113 H (75-99) mg/dL Calcium (8.4-10.2) mg/dL AST (17-59) U/L ALT (21-72) U/L Alkaline Phosphatase (38-126) U/L Total Protein (6.3-8.2) g/dL Albumin (3.5-5.0) g/dL 06/14/16 06/15/16 06/15/16 Range/Units 21:14 02:44 05:51 RBC 2.57 L (4.30-5.90) m/uL Hgb 7.7 L (13.0-17.5) gm/dL Hct 23.5 L (39.0-53.0) % Sodium (137-145) mmol/L Chloride (98-107) mmol/L BUN (9-20) mg/dL Glucose (74-99) mg/dL POC Glucose (mg/dL) 109 H 116 H (75-99) mg/dL Calcium (8.4-10.2) mg/dL AST (17-59) U/L ALT (21-72) U/L Alkaline Phosphatase (38-126) U/L Total Protein (6.3-8.2) g/dL Albumin (3.5-5.0) g/dL 06/15/16 06/15/16 Range/Units 05:51 06:03 RBC (4.30-5.90) m/uL Hgb (13.0-17.5) gm/dL Hct (39.0-53.0) % Sodium (137-145) mmol/L Chloride (98-107) mmol/L BUN (9-20) mg/dL Glucose 105 H (74-99) mg/dL POC Glucose (mg/dL) 113 H (75-99) mg/dL Calcium 8.2 L (8.4-10.2) mg/dL AST 70 H (17-59) U/L ALT 127 H (21-72) U/L Alkaline Phosphatase 169 H (38-126) U/L Total Protein 6.1 L (6.3-8.2) g/dL Albumin 3.1 L (3.5-5.0) g/dL Assessment and Plan (1) S/P CABG (coronary artery bypass graft) Status: Acute (2) Hyperlipidemia Status: Acute (3) Hypertension Status: Acute (4) PAD (peripheral artery disease) Status: Acute Plan: From cardiology's perspective, continue current medications. Continue to hold statin until the liver functions improve. Patient was also encouraged regarding the use of the incentive spirometry. Discharge home soon. DNP note has been reviewed, I agree with a documented findings and plan of care. Patient was seen and examined.
[2016-06-15 11:47] LABS: Glucose,Whole Blood 112 mg/dL (75-99)
--- NOTE | 2016-06-15 12:43 | P.PN ---
Subjective Progress note dated 06/14/2016 This is a 61-year-old white male with a history of postop day #8 status post redo bypass grafting 2. The patient is doing relatively well. Feeling relatively well. His been seen in the last couple days along with our nurse practitioner. He continues to do well. According to the cardiothoracic operations administrative assistant, he may be discharged home tomorrow. Currently his saturations are excellent. Progress note dated 06/15/2016 This is a 61-year-old white male, who is postop day #9 status post redo bypass grafting 2. The patient is doing relatively well. May need to be discharged home on oxygen. My nurse practitioner wrote a prescription for oxygen. He continues to do well though. I believe cardiothoracic we'll discharge the patient today. He'll follow-up with us in the office. The patient apparently sees Dr. Woods in the office. Was sent down to [facility] for a diaphragmatic plication which she states really hasn't helped that much. Objective - Vital Signs Vital signs: Vital Signs Temp 97.1 F L 06/15/16 11:40 Pulse 68 06/15/16 12:00 Resp 20 06/15/16 12:00 BP 111/55 06/15/16 11:40 Pulse Ox 94 L 06/15/16 12:00 Intake & Output 06/14/16 06/15/16 06/15/16 18:59 06:59 18:59 Intake Total 590 420 300 Output Total 250 Balance 590 170 300 Weight 107.8 kg 109.6 kg Intake: Oral 590 420 300 Output: Urine 250 Other: Voiding Method Urinal Urinal Urinal # Voids 0 ABP, PAP, CO, CI - Last Documented Arterial Blood Pressure 94/49 Pulmonary Artery Pressure 47/18 Cardiac Output 8.7 Cardiac Index 4.3 - Exam No acute distress, oriented 3. HEENT examination is grossly unremarkable. Neck is Supple. Full range of motion. Cardiovascular examination reveals regular rhythm rate. S1-S2 normal. Lungs reveal few scattered rhonchi. No wheezes. Abdomen soft bowel sounds are heard. Extremities are intact. - Labs CBC & Chem 7: 06/15/16 05:51 06/15/16 05:51 Labs: Abnormal Lab Results - Last 24 Hours (Table) 06/14/16 06/14/16 06/14/16 Range/Units 16:46 20:50 21:14 RBC (4.30-5.90) m/uL Hgb (13.0-17.5) gm/dL Hct (39.0-53.0) % Sodium 134 L (137-145) mmol/L Chloride 95 L (98-107) mmol/L BUN 22 H (9-20) mg/dL Glucose 114 H (74-99) mg/dL POC Glucose (mg/dL) 113 H 109 H (75-99) mg/dL Calcium (8.4-10.2) mg/dL AST (17-59) U/L ALT (21-72) U/L Alkaline Phosphatase (38-126) U/L Total Protein (6.3-8.2) g/dL Albumin (3.5-5.0) g/dL 06/15/16 06/15/16 06/15/16 Range/Units 02:44 05:51 05:51 RBC 2.57 L (4.30-5.90) m/uL Hgb 7.7 L (13.0-17.5) gm/dL Hct 23.5 L (39.0-53.0) % Sodium (137-145) mmol/L Chloride (98-107) mmol/L BUN (9-20) mg/dL Glucose 105 H (74-99) mg/dL POC Glucose (mg/dL) 116 H (75-99) mg/dL Calcium 8.2 L (8.4-10.2) mg/dL AST 70 H (17-59) U/L ALT 127 H (21-72) U/L Alkaline Phosphatase 169 H (38-126) U/L Total Protein 6.1 L (6.3-8.2) g/dL Albumin 3.1 L (3.5-5.0) g/dL 06/15/16 06/15/16 Range/Units 06:03 11:31 RBC (4.30-5.90) m/uL Hgb (13.0-17.5) gm/dL Hct (39.0-53.0) % Sodium (137-145) mmol/L Chloride (98-107) mmol/L BUN (9-20) mg/dL Glucose (74-99) mg/dL POC Glucose (mg/dL) 113 H 112 H (75-99) mg/dL Calcium (8.4-10.2) mg/dL AST (17-59) U/L ALT (21-72) U/L Alkaline Phosphatase (38-126) U/L Total Protein (6.3-8.2) g/dL Albumin (3.5-5.0) g/dL Assessment and Plan (1) Coronary artery disease Status: Acute (2) Hyperlipidemia Status: Acute (3) Hypertension Status: Acute (4) PAD (peripheral artery disease) Status: Acute (5) Postoperative acute respiratory failure Status: Acute (6) S/P CABG (coronary artery bypass graft) Status: Acute Plan: Plan dated 06/14/2016 The patient will continue to work on his incentive spirometer. He needs to focus on deep breathing coughing and clearing of secretions. We'll continue with the updrafts. We'll continue to watch his chest x-rays. Possible discharge tomorrow. [place] dated 06/15/2016. The patient will continue to work on his incentive spirometer. My nurse practitioner wrote a prescription for oxygen at home and discharge. The patient will continue to use his incentive spirometer deep breathing coughing and clearing of secretions. Overall prognosis remains reasonably good. The patient will follow-up with Dr. Hyatt in the office. Was telling us today that he wasn't happy with the outcome of his diaphragmatic plication at [facility]. Time with Patient: Greater than 30
--- NOTE | 2016-06-15 16:22 | P.PN ---
Subjective Is a 61-year-old gentleman is admitted to the hospital for a redo of CABG 2 postop day 6 Patient is seen in medical consultation for management of chronic medical conditions. Patient is currently on Levaquin liters supplement oxygen states to be more short of breath at rest. Denies having any chest pressure does have a cough that is productive of yellowish phlegm. No abdominal pain noted. Patient denies having any tenderness in the lower extremities, headaches, nausea, vomiting. Underwent a left radial artery harvest to the upper twos marginal coronary artery and endovascular vein harvest from the great saphenous vein to the posterior lateral branch. Apparently was on insulin drip until overnight. However was turned off patient was having glucose levels between 100 and 180. Thereafter I directed to start Levemir at 15 units with NovoLog sliding scale. 06/14/2016 currently on 4 L supplement oxygen. Denies having any chest pain. States that he gets tired with minimal exertion. Moving his bowels today. 06/15/2016 No new additional complains. Denies having any chest pressure, cough that is minimally productive at this time. Objective - Vital Signs Vital signs: Vital Signs Temp 97.1 F L 06/15/16 11:40 Pulse 87 06/15/16 16:15 Resp 20 06/15/16 12:00 BP 111/55 06/15/16 11:40 Pulse Ox 92 L 06/15/16 15:58 Intake & Output 06/14/16 06/15/16 06/15/16 18:59 06:59 18:59 Intake Total 590 420 300 Output Total 250 Balance 590 170 300 Weight 107.8 kg 109.6 kg Intake: Oral 590 420 300 Output: Urine 250 Other: Voiding Method Urinal Urinal Urinal # Voids 0 ABP, PAP, CO, CI - Last Documented Arterial Blood Pressure 94/49 Pulmonary Artery Pressure 47/18 Cardiac Output 8.7 Cardiac Index 4.3 - Exam Physical exam Gen. appearance oriented 3 in no distress Neck is supple no JVD Lungs crackles at the bases Heart S1-S2 heard regular rate and rhythm no murmurs appreciated Abdomen is soft nontender no organomegaly bowel sounds are intact Neurologically cranial nerves II-12 grossly intact no focal motor or sensory deficits noted Skin no abnormalities appreciated - Labs CBC & Chem 7: 06/15/16 05:51 06/15/16 05:51 Labs: Abnormal Lab Results - Last 24 Hours (Table) 06/14/16 06/14/16 06/14/16 Range/Units 16:46 20:50 21:14 RBC (4.30-5.90) m/uL Hgb (13.0-17.5) gm/dL Hct (39.0-53.0) % Sodium 134 L (137-145) mmol/L Chloride 95 L (98-107) mmol/L BUN 22 H (9-20) mg/dL Glucose 114 H (74-99) mg/dL POC Glucose (mg/dL) 113 H 109 H (75-99) mg/dL Calcium (8.4-10.2) mg/dL AST (17-59) U/L ALT (21-72) U/L Alkaline Phosphatase (38-126) U/L Total Protein (6.3-8.2) g/dL Albumin (3.5-5.0) g/dL 06/15/16 06/15/16 06/15/16 Range/Units 02:44 05:51 05:51 RBC 2.57 L (4.30-5.90) m/uL Hgb 7.7 L (13.0-17.5) gm/dL Hct 23.5 L (39.0-53.0) % Sodium (137-145) mmol/L Chloride (98-107) mmol/L BUN (9-20) mg/dL Glucose 105 H (74-99) mg/dL POC Glucose (mg/dL) 116 H (75-99) mg/dL Calcium 8.2 L (8.4-10.2) mg/dL AST 70 H (17-59) U/L ALT 127 H (21-72) U/L Alkaline Phosphatase 169 H (38-126) U/L Total Protein 6.1 L (6.3-8.2) g/dL Albumin 3.1 L (3.5-5.0) g/dL 06/15/16 06/15/16 Range/Units 06:03 11:31 RBC (4.30-5.90) m/uL Hgb (13.0-17.5) gm/dL Hct (39.0-53.0) % Sodium (137-145) mmol/L Chloride (98-107) mmol/L BUN (9-20) mg/dL Glucose (74-99) mg/dL POC Glucose (mg/dL) 113 H 112 H (75-99) mg/dL Calcium (8.4-10.2) mg/dL AST (17-59) U/L ALT (21-72) U/L Alkaline Phosphatase (38-126) U/L Total Protein (6.3-8.2) g/dL Albumin (3.5-5.0) g/dL Assessment and Plan Plan: #1 CAD status post redo of CABG 2 #2 history of hypertension #3 dyslipidemia #4 diabetes mellitus with hyperglycemia #5 anemia as expected from surgery #6 acute hypoxic respiratory failure improving currently on 4 L supplement o2 Plan We'll obtain HbA1c likely can be discharged on oral antidiabetic medications.
[2016-06-15 16:54] LABS: Glucose,Whole Blood 110 mg/dL (75-99)
[2016-06-15 16:57] VITALS: RESP 18
[2016-06-15] MEDS: metFORMIN 500 MG TAB PO SCH (18:53)
[2016-06-15 21:15] LABS: Glucose,Whole Blood 130 mg/dL (75-99)
[2016-06-15] MEDS: SENNOSIDES-DOCUSATE SODIUM 1 EACH TAB PO SCH (22:46)
[2016-06-16] MEDS: INSULIN LISPRO (humaLOG) 300 UNIT/3 ML VIAL SQ SCH ×3 (02:00→12:10)
[2016-06-16 02:07] LABS: Glucose,Whole Blood 125 mg/dL (75-99)
[2016-06-16] MEDS: HYDROcodone/APAP 7.5-325MG 1 EACH TAB PO PRN (06:15)
[2016-06-16 06:28] LABS: Glucose,Whole Blood 125 mg/dL (75-99)
[2016-06-16 06:30] LABS: CH 30.2; HCT 24.9 % (39.0-53.0); HDW 4.13; HGB 8.4 gm/dL (13.0-17.5); Hypochromasia Slight; MCH 30.9 pg (25.0-35.0); MCHC 33.6 g/dL (31.0-37.0); Mean Platelet Volume 7.2; Poikilocytosis Moderate; RBC 2.71 m/uL (4.30-5.90); RDW 14.8 % (11.5-15.5); WBC 6.8 k/uL (3.8-10.6)
[2016-06-16] MEDS: PANTOPRAZOLE 40 MG TABLET PO SCH (06:39)
[2016-06-16] MEDS: CARVEDILOL 6.25 MG TAB PO SCH (06:39)
[2016-06-16] MEDS: metFORMIN 500 MG TAB PO SCH (06:39)
[2016-06-16] MEDS: HEPARIN SODIUM,PORCINE 5,000 UNIT/ML 1 ML VIAL SQ SCH (06:39)
[2016-06-16 06:40] LABS: ALT 117 U/L (21-72); AST 64 U/L (17-59); Alkaline Phosphatase 175 U/L (38-126); Anion Gap 8 mmol/L; Blood Urea Nitrogen 20 mg/dL (9-20); Calcium 8.5 mg/dL (8.4-10.2); Carbon Dioxide 32 mmol/L (22-30); Chloride 98 mmol/L (98-107); Glucose 120 mg/dL (74-99); Non-African American GFR(MDRD) >60 (>60 ml/min/1.73 sqM); Potassium 4.1 mmol/L (3.5-5.1); Sodium 138 mmol/L (137-145); Total Bilirubin 0.8 mg/dL (0.2-1.3); Total Protein 6.3 g/dL (6.3-8.2)
[2016-06-16] MEDS: ASPIRIN 325 MG TAB PO SCH (08:37)
[2016-06-16] MEDS: IPRATROPIUM-ALBUTEROL 3 ML NEB INHALATION SCH ×2 (08:38→13:30)
[2016-06-16] MEDS: MUPIROCIN 2% OINT 22 GM TUBE NASAL SCH (08:38)
[2016-06-16] MEDS: FUROSEMIDE 10 MG/ML 2 ML VIAL IV SCH (08:38)
[2016-06-16] MEDS: LOSARTAN 25 MG TAB PO SCH (08:38)
[2016-06-16] MEDS: CLOPIDOGREL 75 MG TAB PO SCH (08:38)
[2016-06-16] MEDS: SERTRALINE 100 MG TAB PO SCH (08:39)
[2016-06-16] MEDS: DILTIAZEM CD 120 MG CAP.ER.24H PO SCH (08:40)
--- NOTE | 2016-06-16 08:45 | P.PN ---
Progress Note - Text CV Surgery Nursing POD: #8, redo coronary artery bypass grafting 2 with left radial artery harvest and left radial artery to obtuse marginal coronary artery and endovascular vein harvest from the left greater saphenous vein with bypass of the posterior lateral branch. Patient awake and alert, no distress noted, no specific complaints, he is sitting up to the bedside chair. Vital Signs: Afebrile Vital Signs - 24 hr 06/13/16 06/13/16 06/13/16 07:00 08:00 08:15 Temperature 98.2 F Pulse Rate 65 73 75 Pulse Rate [ During Activity ] Pulse Rate [ Right Radial] Respiratory 21 26 H Rate Blood Pressure 134/62 137/63 Blood Pressure [Right Arm Supine] O2 Sat by Pulse 98 95 Oximetry O2 Sat by Pulse Oximetry [ During Activity ] 06/13/16 06/13/16 06/13/16 08:30 09:00 10:00 Temperature Pulse Rate 77 72 70 Pulse Rate [ During Activity ] Pulse Rate [ Right Radial] Respiratory 18 15 Rate Blood Pressure 117/59 114/58 Blood Pressure [Right Arm Supine] O2 Sat by Pulse 83 L 97 Oximetry O2 Sat by Pulse Oximetry [ During Activity ] 06/13/16 06/13/16 06/13/16 11:48 11:57 12:00 Temperature 98.0 F Pulse Rate 65 66 63 Pulse Rate [ During Activity ] Pulse Rate [ Right Radial] Respiratory 17 Rate Blood Pressure 92/51 Blood Pressure [Right Arm Supine] O2 Sat by Pulse 100 Oximetry O2 Sat by Pulse Oximetry [ During Activity ] 06/13/16 06/13/16 06/13/16 13:29 15:54 16:51 Temperature Pulse Rate 64 Pulse Rate [ 88 During Activity ] Pulse Rate [ Right Radial] Respiratory 18 Rate Blood Pressure Blood Pressure [Right Arm Supine] O2 Sat by Pulse Oximetry O2 Sat by Pulse 100 Oximetry [ During Activity ] 06/13/16 06/13/16 06/13/16 17:01 19:59 20:00 Temperature Pulse Rate 66 73 Pulse Rate [ During Activity ] Pulse Rate [ 72 Right Radial] Respiratory 19 Rate Blood Pressure Blood Pressure 148/65 [Right Arm Supine] O2 Sat by Pulse 92 L Oximetry O2 Sat by Pulse Oximetry [ During Activity ] 06/13/16 06/14/16 06/14/16 20:08 00:00 03:49 Temperature 97.5 F L Pulse Rate 77 Pulse Rate [ During Activity ] Pulse Rate [ 71 66 Right Radial] Respiratory 19 17 Rate Blood Pressure Blood Pressure 128/65 138/66 [Right Arm Supine] O2 Sat by Pulse 91 L 94 L Oximetry O2 Sat by Pulse Oximetry [ During Activity ] Labs: Pending Lungs: Essentially clear throughout, diminished bilateral bases left greater than right. Respirations are unlabored. O2 sat: 97% on 2 L nasal cannula. I/S: 1000 mL, reviewed with the patient importance of using his incentive spirometry every hour while awake. The patient did give a good return demonstration on his incentive spirometry. Heart: S1S2, regular rhythm and rate, negative for S3, gallop or murmur. Remote telemetry showing normal sinus rhythm heart rate 68. Sternum stable, chest incision clean with medline silver dressing clean and dry. The silver dressing was changed yesterday to 2016. Heart hugger in place, the patient is demonstrating proper use of his heart hugger. Left arm, left radial artery harvest site incisions clean dry and well approximated. Positive palpable ulnar pulses. Right leg incisions clean dry and well approximated. No drainage noted. Knee-high LATESHA hose and sequential compression devices in place to bilateral lower extremities. The patient has an area of erythema with areas of papules to his mid upper back. Abdomen: Soft, Positive bowel sounds present in all 4 quadrants. CBGs: 112-144 mg/dL in the last 24 hours. U/O: Adequate, patient states he's been urinating in the urinal throughout the night. 24 hr Total: Intake & Output 06/12/16 06/13/16 06/14/16 06/15/16 06:59 06:59 06:59 06:59 Intake Total 2106.858 1900 1140 Output Total 1970 1850 800 Balance 136.858 50 340 Weight 110.3 kg 101.9 kg 110 kg Active Medications Acetaminophen/Hydrocodone Bitart ([place] 7.5-325) 1 each PO Q4H PRN PRN Reason: Moderate Pain Last Admin: 06/12/16 02:17 Dose: 1 each Acetaminophen/Hydrocodone Bitart ([place] 7.5-325) 2 each PO Q4H PRN PRN Reason: Severe Pain Last Admin: 06/14/16 00:40 Dose: 2 each Albuterol/Ipratropium (Duoneb 0.5 Mg-3 Mg/3 Ml Soln) 3 ml INHALATION RT-QID [facility] Last Admin: 06/13/16 19:54 Dose: 3 ml Albuterol/Ipratropium (Duoneb 0.5 Mg-3 Mg/3 Ml Soln) 3 ml INHALATION RT-Q2H PRN PRN Reason: Shortness Of Breath Or Wheezing Aspirin (Aspirin) 325 mg PO DAILY [facility] Last Admin: 06/13/16 08:46 Dose: 325 mg Atorvastatin Calcium (Lipitor) 40 mg PO DAILY [facility] Last Admin: 06/13/16 08:46 Dose: 40 mg Bisacodyl (Dulcolax) 10 mg RECTAL DAILY PRN PRN Reason: Constipation Carvedilol (Coreg) 6.25 mg PO BID-W/MEALS [facility] Last Admin: 06/14/16 06:31 Dose: 6.25 mg Clopidogrel Bisulfate (Plavix) 75 mg PO DAILY [facility] Last Admin: 06/13/16 08:46 Dose: 75 mg Diltiazem HCl (Cardizem Cd) 120 mg PO DAILY [facility] Last Admin: 06/13/16 08:44 Dose: 120 mg Furosemide (Lasix) 20 mg IV DAILY [facility] Last Admin: 06/13/16 08:46 Dose: 20 mg Heparin Sodium (Porcine) (Heparin) 5,000 unit SQ Q8H [facility] Last Admin: 06/14/16 06:31 Dose: 5,000 unit Insulin Detemir (Levemir) 15 unit SQ 0900 [facility] Last Admin: 06/13/16 08:54 Dose: 15 unit Insulin Human Lispro (Humalog) 0 unit SQ [id number] [facility] PRN Reason: Protocol Last Admin: 06/14/16 06:31 Dose: Not Given Magnesium Hydroxide (Milk Of Magnesia) 2,400 mg PO BID PRN PRN Reason: Constipation Mupirocin (Bactroban Oint) 1 applic NASAL BID [facility] Last Admin: 06/13/16 21:49 Dose: 1 applic Ondansetron HCl (Zofran) 4 mg IVP Q6HR PRN PRN Reason: Nausea And Vomiting Pantoprazole Sodium (Protonix) 40 mg PO AC-BRKFST [facility] Last Admin: 06/14/16 06:31 Dose: 40 mg Senna/Docusate Sodium (Senokot-S) 2 each PO HS [facility] Last Admin: 06/14/16 00:39 Dose: 2 each Sertraline HCl (Zoloft) 100 mg PO DAILY [facility] Last Admin: 06/13/16 08:46 Dose: 100 mg Sodium Chloride (Saline Flush) 10 ml IV BID [facility] Last Admin: 06/13/16 21:47 Dose: 10 ml Sodium Chloride (Saline Flush) 10 ml IV Q12HR [facility] Last Admin: 06/13/16 21:48 Dose: Not Given Plan: Discharge planning in place, expected discharge tomorrow 06/15/2016 to home. [facility] [place] [facility] care. Cardizem Cd 120 mg po daily in place for left radial artery harvest. Continue working with physical therapy, continue use of his incentive spirometry. His liver enzymes are elevated today, we will place his lipitor or hold for now and monitor his liver enzymes.
--- NOTE | 2016-06-16 09:00 | P.PN ---
<Karin Gautam - Last Filed: 06/16/16 08:55> Subjective Principal diagnosis: Coronary artery disease of [place] and autologous grafts. POD #10 redo coronary artery bypass grafting 2 with left radial artery harvest and left radial artery to obtuse marginal coronary artery and endovascular vein harvest from the left greater saphenous vein with bypass of the posterior lateral branch. Patient currently sitting up in chair, denies pain, states he feels better everyday. Anxious to go home. Objective - Vital Signs Vital signs: Vital Signs Temp 97.8 F 06/16/16 04:00 Pulse 64 06/16/16 08:48 Resp 18 06/16/16 04:00 BP 132/66 06/16/16 04:00 Pulse Ox 93 L 06/16/16 04:00 Intake & Output 06/15/16 06/16/16 06/16/16 18:59 06:59 18:59 Intake Total 300 240 Balance 300 240 Weight 109.9 kg Intake: Oral 300 240 Other: Voiding Method Urinal Urinal # Voids 1 ABP, PAP, CO, CI - Last Documented Arterial Blood Pressure 94/49 Pulmonary Artery Pressure 47/18 Cardiac Output 8.7 Cardiac Index 4.3 - Constitutional General appearance: Present: cooperative, no acute distress - Respiratory Details: Lungs sounds diminished. Respirations even and nonlabored. Currently on 2 L nasal cannula. - Cardiovascular Details: S1 and S2 present. Regular rate and rhythm. Normal sinus rhythm on telemetry. Chest stable. Heart hugger on with patient demonstrating appropriate use. Teds, SCDs present. - Gastrointestinal Gastrointestinal Comment(s): Abdomen soft, nontender, nondistended. Active bowel sounds 4 quadrants. Tolerating diet. - Genitourinary Genitourinary Comment(s): Continues to void clear, yellow urine per urinal. - Integumentary Integumentary Comment(s): Anterior chest wall open to air, incision well approximated. Left radial graft site well approximated. Right lower extremity EVH site well approximated. - Musculoskeletal Musculoskeletal Comment(s): Ambulating in hallway with standby assist. - Psychiatric Psychiatric: Present: A&O x's 3, appropriate affect, intact judgment & insight - Allied health notes Allied health notes reviewed: case management - Labs CBC & Chem 7: 06/16/16 05:41 06/16/16 05:41 Labs: Abnormal Lab Results - Last 24 Hours (Table) 06/15/16 06/15/16 06/15/16 Range/Units 11:31 16:53 21:14 RBC (4.30-5.90) m/uL Hgb (13.0-17.5) gm/dL Hct (39.0-53.0) % Carbon Dioxide (22-30) mmol/L Glucose (74-99) mg/dL POC Glucose (mg/dL) 112 H 110 H 130 H (75-99) mg/dL AST (17-59) U/L ALT (21-72) U/L Alkaline Phosphatase (38-126) U/L Albumin (3.5-5.0) g/dL 06/16/16 06/16/16 06/16/16 Range/Units 02:06 05:41 05:41 RBC 2.71 L (4.30-5.90) m/uL Hgb 8.4 L (13.0-17.5) gm/dL Hct 24.9 L (39.0-53.0) % Carbon Dioxide 32 H (22-30) mmol/L Glucose 120 H (74-99) mg/dL POC Glucose (mg/dL) 125 H (75-99) mg/dL AST 64 H (17-59) U/L ALT 117 H (21-72) U/L Alkaline Phosphatase 175 H (38-126) U/L Albumin 3.2 L (3.5-5.0) g/dL 06/16/16 Range/Units 06:27 RBC (4.30-5.90) m/uL Hgb (13.0-17.5) gm/dL Hct (39.0-53.0) % Carbon Dioxide (22-30) mmol/L Glucose (74-99) mg/dL POC Glucose (mg/dL) 125 H (75-99) mg/dL AST (17-59) U/L ALT (21-72) U/L Alkaline Phosphatase (38-126) U/L Albumin (3.5-5.0) g/dL Assessment and Plan (1) Coronary artery disease Status: Acute (2) Hypertension Status: Acute (3) Hyperlipidemia Status: Acute (4) PAD (peripheral artery disease) Status: Acute (5) Postoperative acute respiratory failure Status: Acute Plan: 1. Continue aspirin, Plavix, heparin, Coreg, Cozaar. 2. Continue Cardizem for radial graft site protection, A. fib prophylaxis. 3. Lipitor stopped secondary to elevated liver enzymes. Will resume once liver enzymes have returned to normal. 4. Lasix ordered per pulmonary. 5. Continue to encourage incentive spirometry use, effective coughing while holding Heart Hugger appropriately. 7. GI DVT prophylaxis. 8. Increase activity, continue follow with physical therapy. 9. Plan to discharge home with home care, home oxygen. Awaiting [place] approval for home care. Time with Patient: Greater than 30 <Linus Harmon - Last Filed: 06/16/16 09:19> Subjective Principal diagnosis: Ready for discharge home Home O2 insurance approval completed Discharge home with home care if approved, otherwise without Objective - Vital Signs Vital signs: Vital Signs Temp 97.8 F 06/16/16 04:00 Pulse 64 06/16/16 08:48 Resp 18 06/16/16 04:00 BP 132/66 06/16/16 04:00 Pulse Ox 93 L 06/16/16 04:00 Intake & Output 06/15/16 06/16/16 06/16/16 18:59 06:59 18:59 Intake Total 300 240 Balance 300 240 Weight 109.9 kg Intake: Oral 300 240 Other: Voiding Method Urinal Urinal # Voids 1 ABP, PAP, CO, CI - Last Documented Arterial Blood Pressure 94/49 Pulmonary Artery Pressure 47/18 Cardiac Output 8.7 Cardiac Index 4.3 - Labs CBC & Chem 7: 06/16/16 05:41 06/16/16 05:41 Labs: Abnormal Lab Results - Last 24 Hours (Table) 06/15/16 06/15/16 06/15/16 Range/Units 11:31 16:53 21:14 RBC (4.30-5.90) m/uL Hgb (13.0-17.5) gm/dL Hct (39.0-53.0) % Carbon Dioxide (22-30) mmol/L Glucose (74-99) mg/dL POC Glucose (mg/dL) 112 H 110 H 130 H (75-99) mg/dL AST (17-59) U/L ALT (21-72) U/L Alkaline Phosphatase (38-126) U/L Albumin (3.5-5.0) g/dL 06/16/16 06/16/16 06/16/16 Range/Units 02:06 05:41 05:41 RBC 2.71 L (4.30-5.90) m/uL Hgb 8.4 L (13.0-17.5) gm/dL Hct 24.9 L (39.0-53.0) % Carbon Dioxide 32 H (22-30) mmol/L Glucose 120 H (74-99) mg/dL POC Glucose (mg/dL) 125 H (75-99) mg/dL AST 64 H (17-59) U/L ALT 117 H (21-72) U/L Alkaline Phosphatase 175 H (38-126) U/L Albumin 3.2 L (3.5-5.0) g/dL 06/16/16 Range/Units 06:27 RBC (4.30-5.90) m/uL Hgb (13.0-17.5) gm/dL Hct (39.0-53.0) % Carbon Dioxide (22-30) mmol/L Glucose (74-99) mg/dL POC Glucose (mg/dL) 125 H (75-99) mg/dL AST (17-59) U/L ALT (21-72) U/L Alkaline Phosphatase (38-126) U/L Albumin (3.5-5.0) g/dL
[2016-06-16 10:21] VITALS: BP 118/58; PULSE 78; TEMP 96.9
[2016-06-16 11:35] LABS: Glucose,Whole Blood 130 mg/dL (75-99)
--- NOTE | 2016-06-16 11:36 | P.PN ---
Subjective Is a 61-year-old gentleman is admitted to the hospital for a redo of CABG 2 postop day 6 Patient is seen in medical consultation for management of chronic medical conditions. Patient is currently on Levaquin liters supplement oxygen states to be more short of breath at rest. Denies having any chest pressure does have a cough that is productive of yellowish phlegm. No abdominal pain noted. Patient denies having any tenderness in the lower extremities, headaches, nausea, vomiting. Underwent a left radial artery harvest to the upper twos marginal coronary artery and endovascular vein harvest from the great saphenous vein to the posterior lateral branch. Apparently was on insulin drip until overnight. However was turned off patient was having glucose levels between 100 and 180. Thereafter I directed to start Levemir at 15 units with NovoLog sliding scale. 06/14/2016 currently on 4 L supplement oxygen. Denies having any chest pain. States that he gets tired with minimal exertion. Moving his bowels today. 06/15/2016 No new additional complains. Denies having any chest pressure, cough that is minimally productive at this time. 06/16/16 NO new additional complaints Objective - Vital Signs Vital signs: Vital Signs Temp 96.9 F L 06/16/16 08:00 Pulse 64 06/16/16 08:48 Resp 18 06/16/16 08:00 BP 118/58 06/16/16 08:00 Pulse Ox 94 L 06/16/16 08:00 Intake & Output 06/15/16 06/16/16 06/16/16 18:59 06:59 18:59 Intake Total 300 240 Balance 300 240 Weight 109.9 kg Intake: Oral 300 240 Other: Voiding Method Urinal Urinal Urinal # Voids 1 ABP, PAP, CO, CI - Last Documented Arterial Blood Pressure 94/49 Pulmonary Artery Pressure 47/18 Cardiac Output 8.7 Cardiac Index 4.3 - Exam Physical exam Gen. appearance oriented 3 in no distress Neck is supple no JVD Lungs crackles at the bases Heart S1-S2 heard regular rate and rhythm no murmurs appreciated Abdomen is soft nontender no organomegaly bowel sounds are intact Neurologically cranial nerves II-12 grossly intact no focal motor or sensory deficits noted. Motor strength 5/5. Skin no abnormalities appreciated - Labs CBC & Chem 7: 06/16/16 05:41 06/16/16 05:41 Labs: Abnormal Lab Results - Last 24 Hours (Table) 06/15/16 06/15/16 06/15/16 Range/Units 11:31 16:53 21:14 RBC (4.30-5.90) m/uL Hgb (13.0-17.5) gm/dL Hct (39.0-53.0) % Carbon Dioxide (22-30) mmol/L Glucose (74-99) mg/dL POC Glucose (mg/dL) 112 H 110 H 130 H (75-99) mg/dL AST (17-59) U/L ALT (21-72) U/L Alkaline Phosphatase (38-126) U/L Albumin (3.5-5.0) g/dL 06/16/16 06/16/16 06/16/16 Range/Units 02:06 05:41 05:41 RBC 2.71 L (4.30-5.90) m/uL Hgb 8.4 L (13.0-17.5) gm/dL Hct 24.9 L (39.0-53.0) % Carbon Dioxide 32 H (22-30) mmol/L Glucose 120 H (74-99) mg/dL POC Glucose (mg/dL) 125 H (75-99) mg/dL AST 64 H (17-59) U/L ALT 117 H (21-72) U/L Alkaline Phosphatase 175 H (38-126) U/L Albumin 3.2 L (3.5-5.0) g/dL 06/16/16 Range/Units 06:27 RBC (4.30-5.90) m/uL Hgb (13.0-17.5) gm/dL Hct (39.0-53.0) % Carbon Dioxide (22-30) mmol/L Glucose (74-99) mg/dL POC Glucose (mg/dL) 125 H (75-99) mg/dL AST (17-59) U/L ALT (21-72) U/L Alkaline Phosphatase (38-126) U/L Albumin (3.5-5.0) g/dL Assessment and Plan Plan: #1 CAD status post redo of CABG 2 #2 history of hypertension #3 dyslipidemia #4 diabetes mellitus with hyperglycemia #5 anemia as expected from surgery #6 acute hypoxic respiratory failure improving currently on 4 L supplement o2 can be discharged on metformin. Patient is recommended to follow-up with PCP in one week.
--- NOTE | 2016-06-17 13:43 | P.DS ---
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: post cardiac surgery Do you want consulting provider notified?: Yes 06/11/16 11:09 Consult Physician Routine Consulting Provider: Estiven Wick Consult Reason/Comments: Medical management Do you want consulting provider notified?: Yes Primary care physician: Linus Harmon - Discharge Diagnosis(es) (1) Coronary artery disease Status: Acute (2) Hypertension Status: Acute (3) Hyperlipidemia Status: Acute (4) PAD (peripheral artery disease) Status: Acute (5) Postoperative acute respiratory failure Status: Acute Hospital Course: FINAL DIAGNOSIS: 1.[Coronary artery disease, both autologous and [place] grafts] 2.[Hypertension] 3.[Dyslipidemia] 4.[Peripheral vascular disease] 5.[History of renal cell carcinoma] 6.[Postoperative acute respiratory failure] PRINCIPAL PROCEDURE: 1.[Redo coronary artery bypass grafting 2 with left radial artery harvest, left radial artery to obtuse marginal coronary artery, endovascular vein harvest from left greater saphenous vein with bypass of the posterior lateral branch] HISTORY OF PRESENT ILLNESS: [This 61-year-old male patient with a previous history of coronary artery bypass graft surgery presented to his supervisor cell operation with ongoing anginal symptoms. His supervisor cell operation recommended a heart catheterization which he underwent, which demonstrated occluded saphenous vein grafts with a patent BENITEZ to the LAD. The right coronary artery was without significant stenosis, there was a tight ostial stenosis in both the obtuse marginal, which was a large vessel, and the distal circumflex, which was a smaller vessel. Redo coronary bypass grafting was recommended by Dr. Melo and Dr. YG Emmanuel, and the patient was referred to Dr. Harmon for consultation. An extensive discussion was had with the patient and his , all risks and benefits were explained, and they elected to proceed with surgery.] HOSPITAL COURSE:[The patient was brought in as an outpatient to the preoperative area, prepared for surgery, and taken to the OR. Dr. Harmon performed an elective redo coronary artery bypass graft 2, left radial artery harvest, and endovascular left greater saphenous vein harvest. Upon completion of surgery the patient was taken to the intensive care unit where he was recovered, monitored hemodynamically, and subsequently had somewhat of stormy recovery. Patient was extubated postop day #1, however he had respiratory distress requiring reintubation on postop day #2. He continued to have daily weaning trials, and was successfully re-extubated on postop day #4. All lines, tubes, drips were DC'd when appropriate. He was transferred to [address] [place] [address] on postop day #7 for further monitoring and rehabilitation. His oxygen was titrated down, he continued to work with physical therapy, and was ready for discharge home on postop day #9. He was to be discharged home in the care of his with [facility] visiting nurse to follow.] COMPLICATIONS: [His postoperative period was complicated by some acute respiratory failure requiring re-intubation and prolonged mechanical ventilator support.] CONSULTATIONS: 1.[Dr. Woods for pulmonology] 2.[Dr. Melo for cardiology] 3.[Dr. Wick for medical management] DISCHARGE INSTRUCTIONS: 1. No driving for 4 weeks, or until physician gives their ok. 2. The patient should sleep in their own bed, no medical bed needed. 3. Stairs are not an issue. If the bedroom is upstairs, it is advised that the patient go up at night and down in the morning for the first week. Go slowly, using handrail and take 1 step at a time. 4. LATESHA hose are to be worn for 30 days or until physician discontinues. 5. Heart hugger is to be worn 100% of the time until physician discontinues.( excepet when showering) 6. No lifting, pushing, or pulling more than 10 pounds for 12 weeks. The physician will advise of any restriction changes. 7. The patient is expected to continue the prescribed walking program. 8. Continue pain control per as needed orders. 9. Continue with incentive spirometry and splinting/heart hugger until otherwise directed by the physician. 10. Must shower daily using liquid antibacterial soap and a separate white washcloth for each individual incision. 11. Please remove Silverlon chest dressing on [June 20] with routine sternal incision care thereafter. HOME HEALTH SERVICES TO PROVIDE: RN SKILLED HOME CARE SERVICES FOR POST-OP SURGICAL PATIENTS WITH THE FOLLOWING: Coronary Artery Bypass Surgery (CABG) RN TO CONTINUE EDUCATION FROM ``ROAD TO A HEALTH HEART PATIENT EDUCATION MANUAL (GIVEN TO PATIENT IN THE HOSPITAL) MEDICATION RECONCILIATION WITH EDUCATION NEEDED ON FIRST HOME VISIT EMPHASIZE IMPORTANCE OF WEARING BREAST SUPPORT/HEART HUGGER ENCOURAGE USE OF INCENTIVE SPIROMETER 10 X EVERY HOUR WHILE AWAKE ENCOURAGE UTILIZATION OF LOWER EXTREMITY COMPRESSION STOCKINGS/LATESHA HOSE and ELEVATE LEGS ABOVE LEVEL OF HEART WHILE AT REST. ENCOURAGE AMBULATION 3-5x/day INCREASING TOLERATES, WHILE AVOID EXTREMES IN TEMPERATURE FREQUENCY: RN TO OPEN THE PATIENT WITHIN 24 HOURS OF DISCHARGE FROM THE HOSPITAL WITH TELEHEALTH INSTALLED AT [facility], RN TO VISIT 2-3 X A WEEK FOR 4 WEEKS ESTABLISHED BY PATIENT NEEDS. REMOVAL OF SUTURES: NURSING SERVICES TO REMOVE SUTURES TWO WEEKS POST SURGICAL DATE [June 20]. If any questions regarding suture removal please call the office at [phone]. LABORATORY: CBC, CMP TO BE DRAWN ON THE THIRD DAY HOME, Monday06/18/2016 (RAN STAT ) FAX RESULTS TO [phone]. TELEHEALTH PARAMETERS: WEIGHT: NOTIFY MD OF WEIGHT GAIN OF 2 LBS IN 24 HOURS OR 5 LBS IN ONE WEEK HR: NOTIFY MD OF HR <55 BPM OR HR>100 BPM BP: NOTIFY MD IF BP <90/55 OR BP>140/100 O2 SAT: NOTIFY MD IF PO2<93% ON ROOM AIR SEND TELEHEALTH REPORT TO [facility] ASSEMBLER AND CARDIOVASCULAR SURGEON THE FIRST WEEK OF CARE AND THEN BI-WEEKLY. PLEASE ADDITIONALLY COMMUNICATE ANY ABNORMALS AND NEW FINDINGS TO THE SURGEONS OFFICE. Plan - Discharge Summary New Discharge Prescriptions: Carvedilol [Coreg] 6.25 mg PO BID-W/MEALS #60 tab Diltiazem Cd [Cardizem CD] 120 mg PO DAILY #30 cap.er.24h HYDROcodone/APAP 7.5-325MG [[place] 7.5-325] 1 - 2 each PO Q4H PRN #30 tab PRN Reason: Moderate Pain Losartan [Cozaar] 25 mg PO DAILY #30 tab Discharge Medication List Aspirin 81 mg PO DAILY 04/04/16 [History] Budesonide/Formoterol Fumarate [Symbicort 160-4.5 Mcg Inhaler] 2 puff INHALATION RT-BID PRN 04/04/16 [History] Clopidogrel [Plavix] 75 mg PO DAILY 04/04/16 [History] Nitroglycerin Sl Tabs [Nitrostat] 0.4 mg SUBLINGUAL Q5M PRN 04/04/16 [History] Sertraline HCl [Zoloft] 100 mg PO DAILY 04/04/16 [History] Mupirocin 2% Nasal Oint [Bactroban 2% Nasal Oint] 1 applic NASAL BID 06/03/16 [ History] Carvedilol [Coreg] 6.25 mg PO BID-W/MEALS #60 tab 06/15/16 [Rx] Diltiazem Cd [Cardizem CD] 120 mg PO DAILY #30 cap.er.24h 06/15/16 [Rx] HYDROcodone/APAP 7.5-325MG [[place] 7.5-325] 1 - 2 each PO Q4H PRN #30 tab [Rx] Losartan [Cozaar] 25 mg PO DAILY #30 tab 06/15/16 [Rx] Sennosides-Docusate Sodium [Senokot-S] 2 each PO HS tab 06/15/16 [Rx] Follow up Appointment(s)/Referral(s): Malika Woods MD [STAFF PHYSICIAN] - 06/23/16 3:00 pm Linus Harmon MD [Primary Care Provider] - 07/13/16 9:30 am Lam Mleo MD [STAFF PHYSICIAN] - 06/28/16 2:15 pm [facility] Visiting Nurse, [NON-STAFF] - Ambulatory/Diagnostic Orders: Complete Blood Count w/diff [LAB.AMB] Time Frame: 3 Days, Location: Determined By Patient Comprehensive Metabolic Panel [LAB.AMB] Time Frame: 3 Days, Location: Determined By Patient Patient Instructions/Handouts: Using Oxygen at Home (DC), Sternal Precautions ( GEN), Coronary Artery Bypass Graft (DC) Activity/Diet/Wound Care/Special Instructions: Home Oxygen - [facility] - [phone] (to be delivered to the hospital prior to discharge) Pick scripts up from [facility] at the time of discharge * DISCHARGE INSTRUCTIONS: 1. No driving for 4 weeks, or until physician gives their ok. 2. The patient should sleep in their own bed, no medical bed needed. 3. Stairs are not an issue. If the bedroom is upstairs, it is advised that the patient go up at night and down in the morning for the first week. Go slowly, using handrail and take 1 step at a time. 4. LATESHA hose are to be worn for 30 days or until physician discontinues. 5. Heart hugger is to be worn 100% of the time until physician discontinues.( excepet when showering) 6. No lifting, pushing, or pulling more than 10 pounds for 12 weeks. The physician will advise of any restriction changes. 7. The patient is expected to continue the prescribed walking program. 8. Continue pain control per as needed orders. 9. Continue with incentive spirometry and splinting/heart hugger until otherwise directed by the physician. 10. Must shower daily using liquid antibacterial soap and a separate white washcloth for each individual incision. 11. Please remove Silverlon chest dressing on [June 20] with routine sternal incision care thereafter. HOME HEALTH SERVICES TO PROVIDE: RN SKILLED HOME CARE SERVICES FOR POST-OP SURGICAL PATIENTS WITH THE FOLLOWING: Coronary Artery Bypass Surgery (CABG) RN TO CONTINUE EDUCATION FROM ``ROAD TO A HEALTH HEART PATIENT EDUCATION MANUAL (GIVEN TO PATIENT IN THE HOSPITAL) MEDICATION RECONCILIATION WITH EDUCATION NEEDED ON FIRST HOME VISIT EMPHASIZE IMPORTANCE OF WEARING BREAST SUPPORT/HEART HUGGER ENCOURAGE USE OF INCENTIVE SPIROMETER 10 X EVERY HOUR WHILE AWAKE ENCOURAGE UTILIZATION OF LOWER EXTREMITY COMPRESSION STOCKINGS/LATESHA HOSE and ELEVATE LEGS ABOVE LEVEL OF HEART WHILE AT REST. ENCOURAGE AMBULATION 3-5x/day INCREASING TOLERATES, WHILE AVOID EXTREMES IN TEMPERATURE FREQUENCY: RN TO OPEN THE PATIENT WITHIN 24 HOURS OF DISCHARGE FROM THE HOSPITAL WITH TELEHEALTH INSTALLED AT [facility], RN TO VISIT 2-3 X A WEEK FOR 4 WEEKS ESTABLISHED BY PATIENT NEEDS. REMOVAL OF SUTURES: NURSING SERVICES TO REMOVE SUTURES TWO WEEKS POST SURGICAL DATE [June 20]. If any questions regarding suture removal please call the office at [phone]. LABORATORY: CBC, CMP TO BE DRAWN ON THE THIRD DAY HOME, Monday06/18/2016 (RAN STAT ) FAX RESULTS TO [phone]. TELEHEALTH PARAMETERS: WEIGHT: NOTIFY MD OF WEIGHT GAIN OF 2 LBS IN 24 HOURS OR 5 LBS IN ONE WEEK HR: NOTIFY MD OF HR <55 BPM OR HR>100 BPM BP: NOTIFY MD IF BP <90/55 OR BP>140/100 O2 SAT: NOTIFY MD IF PO2<93% ON ROOM AIR SEND TELEHEALTH REPORT TO [employer] [employer] ASSEMBLER AND CARDIOVASCULAR SURGEON THE FIRST WEEK OF CARE AND THEN BI-WEEKLY. PLEASE ADDITIONALLY COMMUNICATE ANY ABNORMALS AND NEW FINDINGS TO THE SURGEONS OFFICE. Discharge Disposition: HOME WITH HOME HEALTH SERVICES
[2016-06-18 15:21] LABS: ABG Base Excess -5.9 mmol/L; ABG HCO3 18 mmol/L (21-25); ABG Oxygen Saturation 99.4 % (94-97); ABG PCO2 29 mmHg (35-45); ABG PO2 157 mmHg (83-108); ABG TCO2 19 mmol/L (19-24)
[2016-06-18 15:21] LABS: VBG PH 7.32 (7.31-7.41)
[2016-06-18 15:22] LABS: ABG Base Excess -1.3 mmol/L; ABG HCO3 23 mmol/L (21-25); ABG PCO2 39 mmHg (35-45); ABG PH 7.39 (7.35-7.45); ABG PO2 91 mmHg (83-108); ABG TCO2 24 mmol/L (19-24)
[2016-06-18 15:23] LABS: ABG Base Excess -0.8 mmol/L; ABG HCO3 24 mmol/L (21-25); ABG Oxygen Saturation 99.9 % (94-97); ABG PCO2 43 mmHg (35-45); ABG PH 7.37 (7.35-7.45); ABG PO2 260 mmHg (83-108); ABG TCO2 25 mmol/L (19-24)
[2016-06-18 15:24] LABS: ABG HCO3 23 mmol/L (21-25); ABG Oxygen Saturation 99.9 % (94-97); ABG PCO2 43 mmHg (35-45); ABG PH 7.35 (7.35-7.45); ABG PO2 268 mmHg (83-108); ABG TCO2 24 mmol/L (19-24)
[2016-06-18 15:25] LABS: ABG Base Excess -2.3 mmol/L; ABG HCO3 22 mmol/L (21-25); ABG Oxygen Saturation 98.4 % (94-97); ABG PCO2 41 mmHg (35-45); ABG PH 7.36 (7.35-7.45); ABG PO2 118 mmHg (83-108); ABG TCO2 24 mmol/L (19-24)
== END 2016-06-16 13:36 | disposition home health service (06) | DRG 235 ==
LOC: 2ORMAIN 05:46 → 6ICU 11:35 → 6SEL 06-13 13:38
PROVIDERS: ADMIT Thoracic Surgery (Cardiothoracic Vascular Surgery); ATTEND Thoracic Surgery (Cardiothoracic Vascular Surgery)
PROC: 5A1221Z Performance of Cardiac Output, Continuous (ICD-10-PCS; 2016-06-06)
PROC: 021009W Bypass Coronary Artery, One Artery from Aorta with Autologous Venous Tissue, Open Approach (ICD-10-PCS; 2016-06-06)
PROC: 02100AW Bypass Coronary Artery, One Artery from Aorta with Autologous Arterial Tissue, Open Approach (ICD-10-PCS; 2016-06-06)
PROC: 06BQ4ZZ Excision of Left Saphenous Vein, Percutaneous Endoscopic Approach (ICD-10-PCS; 2016-06-06)
PROC: 03BC4ZZ Excision of Left Radial Artery, Percutaneous Endoscopic Approach (ICD-10-PCS; 2016-06-06)
PROC: 5A1945Z Respiratory Ventilation, 24-96 Consecutive Hours (ICD-10-PCS; principal; 2016-06-08)
PROC: 0BH18EZ Insertion of Endotracheal Airway into Trachea, Via Natural or Artificial Opening Endoscopic (ICD-10-PCS; principal; 2016-06-08)
DX: I25.710 Atherosclerosis of autologous vein coronary artery bypass graft(s) with unstable angina pectoris (principal); J96.01 Acute respiratory failure with hypoxia; I25.110 Atherosclerotic heart disease of native coronary artery with unstable angina pectoris; J98.11 Atelectasis; I11.9 Hypertensive heart disease without heart failure; J44.9 Chronic obstructive pulmonary disease, unspecified; E78.5 Hyperlipidemia, unspecified; I25.2 Old myocardial infarction; I51.7 Cardiomegaly; I73.9 Peripheral vascular disease, unspecified; Z79.02 Long term (current) use of antithrombotics/antiplatelets; Z79.82 Long term (current) use of aspirin; Z85.528 Personal history of other malignant neoplasm of kidney; Z86.73 Personal history of transient ischemic attack (TIA), and cerebral infarction without residual deficits; Z87.891 Personal history of nicotine dependence; E11.65 Type 2 diabetes mellitus with hyperglycemia; D64.9 Anemia, unspecified
CPT/HCPCS: 31500; 36600; 71010; 71020; 80048; 80053; 82330; 82803; 82805; 83036; 83735; 84100; 84132; 85025; 85027; 85520; 85610; 85730; 86850; 86891; 86900; 86901; 86920; 88304; 94002; 94003; 94640; 94760

== ENCOUNTER → 2016-07-21 | Outpatient (CLI) | payer OTHER ==
[2016-07-21 10:17] LABS: Blood Urea Nitrogen 17 mg/dL (9-20); Non-African American GFR(MDRD) >60 (>60 ml/min/1.73 sqM)
--- NOTE | 2016-07-21 11:26 | CT ---
EXAMINATION TYPE: CT abdomen pelvis w con DATE OF EXAM: 07/21/2016 10:52 AM COMPARISON: 08/29/2008 HISTORY: 61-year-old male with embolic disease to the right toe, history of right kidney cancer. TECHNIQUE: Contiguous axial scanning of the abdomen and pelvis following administration of 100 ml Omn ipaque 300 IV contrast. Delayed images through the kidneys and coronal/sagittal reconstructions perf ormed. CT DLP: 1188.9 mGycm Automated exposure control for dose reduction was used. FINDINGS: There is been interval median sternotomy. Heart is borderline enlarged without pericardial effusion. Some patchy atelectasis at the left base. Some pleural-based calcifications are present over the left hemidiaphragm as well. Trace left pleural effusion is seen. Tiny hiatal hernia. Liver is enlarged measuring 20.8 cm craniocaudal with low-attenuation. No focal liver lesion seen. No biliary ductal dilatation. Portal venous system is patent. Gallbladder, right adrenal gland, and pancreas appear within normal limits. Stable 1.4 cm nodularity left adrenal gland. Stability suggests a benign adrenal adenoma. Stable postsurgical changes along the lateral upper pole right kidney with similar adjacent perinephr ic fat stranding likely scar tissue. Numerous hypodense lesions are present within the left kidney, l argest measuring 2.4 cm compatible with a cyst. Many other lesions are too small for accurate CT jimenez acterization and also probably represent cysts though some are new and some are larger from prior exa m A 6 mm and 5 mm nonobstructive left renal calculus in the mid and lower pole. There is splenomegaly at 16.3 cm axial image 16. No dilated small bowel, free fluid, or free air. Oral contrast has progressed to the rectum where there is moderate stool. Otherwise, no significant s tool burden. Extensive sigmoid. Some circumferential wall thickening of the distal sigmoid without pe ricolic neck inflammatory change probably due to chronic diverticulitis. There is moderate atherosclerotic change within the abdominal aorta with ectasia of the infrarenal ab dominal aorta measuring up to 2.8 cm, coronal image 46. Chronic occlusion of the right common iliac artery with reconstitution at the level of the iliac jass ry bifurcation. The right external iliac artery is small in caliber. The patient's left femoral to ri ght femoral bypass remains patent. There is mild atherosclerotic narrowing at the common femoral jass ry bifurcation and mild to moderate segmental atelectatic narrowing of the left common iliac artery. Bladder shows mild circumferential wall thickening. Prostate gland measures 4.6 cm wide. Bones: There is serpiginous sclerosis at the weightbearing aspect of the left femoral head compatible with AVN. Degenerative changes SI joints and lower lumbar spine. IMPRESSION: 1. CHRONICALLY OCCLUDED RIGHT COMMON ILIAC ARTERY. THERE IS GRADUAL RECONSTITUTION AT THE RIGHT ILIAC ARTERY BIFURCATION BUT THE RIGHT EXTERNAL ILIAC ARTERY REMAINS SMALL IN CALIBER. 2. PATENT RIGHT TO LEFT FEMOROFEMORAL BYPASS. MILD ATHEROSCLEROTIC NARROWING AT THE RIGHT COMMON FEMO RAL ARTERY BIFURCATION. 3. HEPATOMEGALY (20.8 CM) WITH LOW ATTENUATION SUGGESTING HEPATIC STEATOSIS. CORRELATE WITH LFT's, LI PID PROFILE, AND PATIENT RISK FACTORS. 4. NEW SPLENOMEGALY (16.3 CM). 5. STABLE POSTSURGICAL CHANGES ALONG THE UPPER POLE RIGHT KIDNEY FROM PRIOR WEDGE RESECTION. 6. NUMEROUS HYPODENSE LESIONS WITHIN THE LEFT KIDNEY, THE LARGEST MEASURING 2.4 CM IS COMPATIBLE WITH A CYST. OTHER LESIONS ARE TOO SMALL FOR ACCURATE CT CHARACTERIZATION AND ALSO LIKELY REPRESENT CYSTS THOUGH SOME ARE NEW AND SOME HAVE INCREASED IN SIZE FROM 2009. FOLLOW-UP CLINICALLY INDICATED. 7. NONOBSTRUCTIVE LEFT-SIDED NEPHROLITHIASIS MEASURING UP TO 6 MM. 8. SIGMOID DIVERTICULOSIS. WALL THICKENING WITHOUT INFLAMMATION COULD REPRESENT CHRONIC DIVERTICULITI S. 9. CIRCUMFERENTIAL BLADDER WALL THICKENING; BLADDER WALL HYPERTROPHY VERSUS CYSTITIS. CLINICALLY ANTHONY ELATE. 10. LEFT FEMORAL HEAD AVN WITHOUT SUBCHONDRAL COLLAPSE AT THIS TIME. CORRELATE FOR PATIENT'S RISK FAC TORS.
== END | disposition home or self-care (01) ==
LOC: RADCTMAIN 08:55
PROVIDERS: ATTEND Thoracic Surgery (Cardiothoracic Vascular Surgery)
DX: K57.30 Diverticulosis of large intestine without perforation or abscess without bleeding (principal); I74.5 Embolism and thrombosis of iliac artery; I70.8 Atherosclerosis of other arteries; N28.89 Other specified disorders of kidney and ureter; N20.0 Calculus of kidney; N32.89 Other specified disorders of bladder; M87.852 Other osteonecrosis, left femur; R16.2 Hepatomegaly with splenomegaly, not elsewhere classified; Z98.890 Other specified postprocedural states
CPT/HCPCS: 82565; 84520; 74177; 36415; Q9967

== ENCOUNTER 2020-03-28 13:26 | Inpatient (IN) | payer MEDICARE, OTHER ==
--- NOTE | 2020-03-28 14:00 | ED ---
General Adult HPI - General Chief complaint: Chest Pain Stated complaint: Chest Pain Time Seen by Provider: 03/28/20 13:28 Source: patient Mode of arrival: EMS Limitations: no limitations - History of Present Illness Initial comments: Dictation was produced using Texert dictation software. please excuse any grammatical, word or spelling errors. This patient was cared for during a federal and state declared state of emergency secondary to Covid 19 Chief Complaint: 64-year-old male presents today for chest pain History of Present Illness: And is 64-year-old male he has past medical history of coronary artery disease, coronary artery bypass grafting. He states that he has been feeling well since . Today he was expressing substernal heaviness to the chest. He states it reminded him of previous heart attack. He took nitroglycerin with improvement of symptoms. Told am uncertain was brought to the emergency department. Patient states that he is relatively asymptomatic at this time. He did report feeling a little diaphoretic nauseated during the onset of this chest pain. His disaster recovery analyst is Dr. Melo. He denies any fevers though he does have some mild shortness of breath. No obvious exposure to anybody with Covid. The ROS documented in this emergency department record has been reviewed and confirmed by me. Those systems with pertinent positive or negative responses have been documented in the HPI. All other systems are other negative and/or noncontributory. PHYSICAL EXAM: General Impression: Alert and oriented x3, not in acute distress HEENT: Normocephalic atraumatic, extra-ocular movements intact, pupils equal and reactive to light bilaterally, mucous membranes moist. Cardiovascular: Heart regular rate and rhythm Chest: Able to complete full sentences, no retractions, no tachypnea Abdomen: abdomen soft, non-tender, non-distended, no organomegaly Musculoskeletal: Pulses present and equal in all extremities, no peripheral edema Motor: no focal deficits noted Neurological: CN II-XII grossly intact, no focal motor or sensory deficits noted Skin: Intact with no visualized rashes Psych: Normal affect and mood ED course: 64-year-old male presents with chest pain concerning for acute coronary syndrome. vital signs upon arrival are within acceptable limits. EKG does not show any infarction. EKG looks similar to EKG from 06/07/2016. I bedside he is asymptomatic and well-appearing Laboratory evaluation obtained. CBC unremarkable. Cardiac panel is negative. Elevated renal markers. Troponin is 0.017. This appears to be patient's baseline. Chest x-ray is not acute. Patient received aspirin and sublingual nitroglycerin prior to coming to the emergency room. X-rays unremarkable. Patient be admitted for serial troponins and cardiology consultation. Case was discussed with Dr. Wick at 2:54 PM. EKG interpretation: Ventricular rate 71, normal sinus rhythm,. Interval 140, QRS 102, QTc 454. No [place] prolongation, no QTC prolongation, no ST or T-wave changes noted. EKG compared to 06/07/2016 showing no changes. Overall, this EKG is unremarkable - Related Data Home Medications Medication Instructions Recorded Confirmed Aspirin 81 mg PO DAILY 04/04/16 03/28/20 Clopidogrel [Plavix] 75 mg PO DAILY 04/04/16 03/28/20 Nitroglycerin Sl Tabs [Nitrostat] 0.4 mg SUBLINGUAL Q5M PRN 04/04/16 03/28/20 Sertraline HCl [Zoloft] 100 mg PO BID 04/04/16 03/28/20 Carvedilol [Coreg] 12.5 mg PO BID 03/28/20 03/28/20 Losartan Potassium 100 mg PO DAILY 03/28/20 03/28/20 Rosuvastatin Calcium [Crestor] 40 mg PO DAILY 03/28/20 03/28/20 Allergies Allergy/AdvReac Type Severity Reaction Status Date / Time No Known Allergies Allergy Verified 03/28/20 14:36 Review of Systems ROS Statement: Those systems with pertinent positive or pertinent negative responses have been documented in the HPI. ROS Other: All systems not noted in ROS Statement are negative. Past Medical History Past Medical History: Cancer, Chest Pain / Angina, COPD, CVA/TIA, Hyperlipidemia, Hypertension, Myocardial Infarction (ND), Osteoarthritis (OA) Additional Past Medical History / Comment(s): generalized fatigue, unable to walk distance,SOB, CVA-several yrs. 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 ago Last Myocardial Infarction Date:: 2012 History of Any Multi-Drug Resistant Organisms: None Reported Past Surgical History: Coronary Bypass/CABG, Heart Catheterization Additional Past Surgical History / Comment(s): earlene. carotid endarterectomy, triple bypass 2012, diaphragm repair post CABG, fem-fem. bypass, cancer removed from kidney Past Anesthesia/Blood Transfusion Reactions: No Reported Reaction Past Psychological History: Anxiety, Bipolar Smoking Status: Former smoker Past Alcohol Use History: Occasional Past Drug Use History: None Reported - Past Family History Mother Family Medical History: Cancer General Exam Limitations: no limitations Course Vital Signs 03/28/20 13:32 Temperature 98.2 F Pulse Rate 73 Respiratory 18 Rate Blood Pressure 116/70 O2 Sat by Pulse 95 Oximetry Medical Decision Making - Lab Data Result diagrams: 03/28/20 13:45 03/28/20 13:45 Lab Results 03/28/20 03/28/20 03/28/20 Range/Units 13:45 13:45 13:45 WBC 7.3 (3.8-10.6) k/uL RBC 4.37 (4.30-5.90) m/uL Hgb 13.5 (13.0-17.5) gm/dL Hct 39.1 (39.0-53.0) % MCV 89.4 (80.0-100.0) fL MCH 31.0 (25.0-35.0) pg MCHC 34.7 (31.0-37.0) g/dL RDW 14.0 (11.5-15.5) % Plt Count 135 L (150-450) k/uL MPV 7.7 Neutrophils % 76 % Lymphocytes % 13 % Monocytes % 5 % Eosinophils % 3 % Basophils % 1 % Neutrophils # 5.5 (1.3-7.7) k/uL Lymphocytes # 1.0 (1.0-4.8) k/uL Monocytes # 0.4 (0-1.0) k/uL Eosinophils # 0.2 (0-0.7) k/uL Basophils # 0.1 (0-0.2) k/uL PT 10.2 (9.0-12.0) sec INR 1.0 (<1.2) APTT 21.8 L (22.0-30.0) sec Sodium 138 (137-145) mmol/L Potassium 4.6 (3.5-5.1) mmol/L Chloride 103 (98-107) mmol/L Carbon Dioxide 26 (22-30) mmol/L Anion Gap 9 mmol/L BUN 30 H (9-20) mg/dL Creatinine 2.37 H (0.66-1.25) mg/dL Est GFR (CKD-EPI)AfAm 32 (>60 ml/min/1.73 sqM) Est GFR (CKD-EPI)NonAf 28 (>60 ml/min/1.73 sqM) Glucose 137 H (74-99) mg/dL Calcium 9.0 (8.4-10.2) mg/dL Magnesium 2.0 (1.6-2.3) mg/dL Total Bilirubin 1.0 (0.2-1.3) mg/dL AST 36 (17-59) U/L ALT 33 (4-49) U/L Alkaline Phosphatase 64 (38-126) U/L Troponin I (0.000-0.034) ng/mL Total Protein 7.4 (6.3-8.2) g/dL Albumin 4.4 (3.5-5.0) g/dL 03/28/20 Range/Units 13:45 WBC (3.8-10.6) k/uL RBC (4.30-5.90) m/uL Hgb (13.0-17.5) gm/dL Hct (39.0-53.0) % MCV (80.0-100.0) fL MCH (25.0-35.0) pg MCHC (31.0-37.0) g/dL RDW (11.5-15.5) % Plt Count (150-450) k/uL MPV Neutrophils % % Lymphocytes % % Monocytes % % Eosinophils % % Basophils % % Neutrophils # (1.3-7.7) k/uL Lymphocytes # (1.0-4.8) k/uL Monocytes # (0-1.0) k/uL Eosinophils # (0-0.7) k/uL Basophils # (0-0.2) k/uL PT (9.0-12.0) sec INR (<1.2) APTT (22.0-30.0) sec Sodium (137-145) mmol/L Potassium (3.5-5.1) mmol/L Chloride (98-107) mmol/L Carbon Dioxide (22-30) mmol/L Anion Gap mmol/L BUN (9-20) mg/dL Creatinine (0.66-1.25) mg/dL Est GFR (CKD-EPI)AfAm (>60 ml/min/1.73 sqM) Est GFR (CKD-EPI)NonAf (>60 ml/min/1.73 sqM) Glucose (74-99) mg/dL Calcium (8.4-10.2) mg/dL Magnesium (1.6-2.3) mg/dL Total Bilirubin (0.2-1.3) mg/dL AST (17-59) U/L ALT (4-49) U/L Alkaline Phosphatase (38-126) U/L Troponin I 0.017 (0.000-0.034) ng/mL Total Protein (6.3-8.2) g/dL Albumin (3.5-5.0) g/dL Disposition Clinical Impression: Chest pain Disposition: ADMITTED IP TO THIS HOSP Condition: Fair Referrals: [facility],Clinic [Primary Care Provider] - 1-2 days Decision Time: 14:54
[2020-03-28 14:04] LABS: Basophils # (A) 0.1 k/uL (0-0.2); Basophils % (A) 1 %; Eosinophils # (A) 0.2 k/uL (0-0.7); Eosinophils % (A) 3 %; HCT 39.1 % (39.0-53.0); HGB 13.5 gm/dL (13.0-17.5); Lymphocytes % (A) 13 %; MCHC 34.7 g/dL (31.0-37.0); MCV 89.4 fL (80.0-100.0); Mean Platelet Volume 7.7; Monocytes # (A) 0.4 k/uL (0-1.0); Monocytes % (A) 5 %; Neutrophils # (A) 5.5 k/uL (1.3-7.7); Neutrophils % (A) 76 %; Platelet Count 135 k/uL (150-450); RBC 4.37 m/uL (4.30-5.90); WBC 7.3 k/uL (3.8-10.6)
[2020-03-28 14:13] LABS: Albumin 4.4 g/dL (3.5-5.0); Potassium 4.6 mmol/L (3.5-5.1); Total Protein 7.4 g/dL (6.3-8.2)
--- NOTE | 2020-03-28 14:22 | XR ---
EXAMINATION TYPE: XR chest 2V DATE OF EXAM: 03/28/2020 COMPARISON: 06/23/2016 HISTORY: Chest pain TECHNIQUE: FINDINGS: There are sternal wires. Heart size is fairly normal. There is mild linear density at the l eft lung base. There is no heart failure. There are chest leads. IMPRESSION: There is some mild atelectasis at the left lung base. There is clearing of the pleural fl uid and pulmonary congestion compared to old exam. No heart failure seen.
[2020-03-28 14:31] LABS: Prothrombin Time 10.2 sec (9.0-12.0)
[2020-03-28 14:42] LABS: Partial Thromboplastin Time 21.8 sec (22.0-30.0)
[2020-03-28] MEDS ORDERED: NITROGLYCERIN SL TABS 0.4 MG TAB SUBLINGUAL PRN (14:52)
[2020-03-28] MEDS ORDERED: SODIUM CHLORIDE 0.9% 1,000 ML IV STA (14:52)
[2020-03-28] MEDS ORDERED: ALPRAZolam 0.25 MG TAB PO PRN (17:35)
[2020-03-28] MEDS ORDERED: TEMAZEPAM 15 MG CAP PO PRN (17:35)
[2020-03-28 18:25] LABS: Appearance,Urine Cloudy (Clear); Bilirubin,Urine Negative (Negative); Blood,Urine Moderate (Negative); Color,Urine Yellow; Glucose,Urine (UA) Negative (Negative); Ketones,Urine Negative (Negative); Leukocyte Esterase,Urine Negative (Negative); Mucus,Urine Rare /hpf; Nitrite,Urine Negative (Negative); PH, Urine 5.5 (5.0-8.0); Protein,Urine Trace (Negative); RBC,Urine 1 /hpf (0-5); Specific Gravity,Urine 1.022 (1.001-1.035); Squamous Epithelial Cell,Urine <1 /hpf (0-4); Urobilinogen,Urine <2.0 mg/dL (<2.0); WBC,Urine 1 /hpf (0-5)
--- NOTE | 2020-03-28 19:58 | US ---
EXAMINATION TYPE: US kidneys/renal and bladder DATE OF EXAM: 03/28/2020 COMPARISON: CT CLINICAL HISTORY: RONEY. Left flank pain x 4 days per patient, prior right kidney cryoablation per johanna ent; renal stones per patient. EXAM MEASUREMENTS: Right Kidney: 10.7 x 6.7 x 4.7 cm Left Kidney: 13.8 x 7.4 x 4.5 cm Post Void Residual Volume: NA as EC patient voided prior to renal US Right Kidney: cortical thinning change noted superiorly with surgical history in right kidney; Left Kidney: multiple renal/cortical cysts noted throughout with largest cyst noted mid = 2.4 x 2.4 x 2.0cm; mild hydronephrosis; mid pole shadowing calcification is noted = 1.5 x 2.0 x 0.4cm. Bladder: empty IMPRESSION: There is left-sided hydronephrosis. There is evidence of 1.5 cm calculus in the left renal pelvis. No evidence of solid renal mass.
--- NOTE | 2020-03-28 20:26 | HP ---
HISTORY AND PHYSICAL DATE OF SERVICE: 03/28/2020 CHIEF COMPLAINT: Chest pain. HISTORY OF PRESENT ILLNESS: This is a 64-year-old gentleman with a past medical history of multiple medical problems including COPD, TIA, hypertension, hyperlipidemia, myocardial infarction, history of CAD, CABG being followed by Dr. Mera in the [facility]. He was complaining of chest pain. The patient had a feeling of heaviness since Thanksgiving. Substernal heaviness was noted and the patient came to [facility] for further evaluation. Because the pain reminded him of his previous heart attack, he took nitroglycerin with some improvement of symptoms also. There is no history of any fever, rigor or chills. Patient has seen Dr. Melo previously. Patient has also been working with [facility] to obtain a cardiac catheterization done by [facility] which has not been scheduled yet. There is no history of fever, rigors, chills. No history of headache, loss of consciousness, seizures. PAST MEDICAL: COPD, CVA, TIA, hypertension, history of myocardial infarction, history of CAD, CABG. MEDICATIONS: Medications prior to admission include Crestor, losartan, Coreg, Zoloft, Nitrostat Plavix, aspirin. ALLERGIES: None. FAMILY HISTORY: History of cancer. SOCIAL HISTORY: Previous history of smoking. Occasional alcohol. REVIEW OF SYSTEMS: ENT: No diminished vision or hearing. CARDIOVASCULAR: As mentioned earlier. RESPIRATORY: As mentioned earlier. GI: As mentioned earlier. : No dysuria. NERVOUS SYSTEM: No numbness or weakness. ALLERGY/IMMUNOLOGY: No asthma or hayfever. MUSCULOSKELETAL: As mentioned earlier. HEMATOLOGY: No history of anemia. ENDOCRINE: No history of diabetes or hypothyroidism. CONSTITUTIONAL: As mentioned earlier. DERMATOLOGY: Negative. RHEUMATOLOGY: Negative. PSYCHIATRY: As mentioned earlier. PHYSICAL EXAMINATION: GENERAL: Patient is alert and oriented times three. VITAL SIGNS: Pulse 66, blood pressure 142/80, respirations 18, temperature 98.4, pulse ox 98% on 2 liters. HEENT: Conjunctivae normal. Oral mucosa moist. NECK: No jugular venous distention. No carotid bruits. RESPIRATORY: Breath sounds diminished at the bases. No rhonchi, no crackles. HEART: S1 and S2, muffled. ABDOMEN: Soft, obese, no tenderness. No masses palpable. EXTREMITIES: No edema, no swelling. NERVOUS: Higher functions as mentioned earlier. Moves all four limbs. No focal motor or sensory deficits. LYMPHATICS: No lymph nodes palpable in the neck or axillae. SKIN: No rashes. JOINTS: No active deforming arthropathy. LAB: WBC 7.3, platelets are 135. Sodium 138, potassium 4.6, creatinine is 2.37, the baseline was 0.78 and glucose 132. ASSESSMENT: 1. Chest pain, possible unstable angina. 2. Increased creatinine with possible acute renal failure. 3. Mild thrombocytopenia. 4. Increased random blood sugar. 5. History of chronic obstructive pulmonary disease. 6. History of cerebrovascular accident and transient ischemic attack. 7. Hypertension. 8. Hyperlipidemia. 9. Myocardial infarction. 10.History of coronary artery disease with coronary artery bypass graft. 11.History of carotid endarterectomy, bilateral. 12.Anxiety, bipolar. 13.History of nicotine dependence. 14.Obesity with body mass of 33. RECOMMENDATION: In this 64-year-old gentleman who presented with multiple complex medical issues, we will monitor the patient closely. Continue the current medications and symptomatic treatment. Rule out myocardial infarction. Unstable angina protocol. Closely follow with Cardiology. Further evaluation including cardiac cath per Cardiology. Otherwise, patient also had elevated creatinine, which is of rather recent onset. I would recommend Nephrology evaluation and also UA with micro. Prognosis guarded. Avoid nephrotoxic medications. Further recommendations to follow. This was discussed with the patient who understands and agrees. MMODL / IJN: [id number] /
[2020-03-28] MEDS: carvediloL 12.5 MG TAB PO SCH (21:24)
[2020-03-28] MEDS: SERTRALINE 100 MG TAB PO SCH (21:24)
[2020-03-28] MEDS: PANTOPRAZOLE 40 MG/10 ML VIAL IVP SCH (21:24)
[2020-03-28] MEDS: SODIUM CHLORIDE 0.9% 1,000 ML IV SCH (21:27)
[2020-03-29] MEDS: SODIUM CHLORIDE 0.9% 1,000 ML IV SCH (03:52)
[2020-03-29 07:19] LABS: Basophils % (A) 1 %; Eosinophils # (A) 0.2 k/uL (0-0.7); Eosinophils % (A) 3 %; HCT 37.6 % (39.0-53.0); HGB 12.6 gm/dL (13.0-17.5); Lymphocytes % (A) 16 %; MCH 30.4 pg (25.0-35.0); MCHC 33.5 g/dL (31.0-37.0); MCV 90.7 fL (80.0-100.0); Mean Platelet Volume 7.4; Monocytes # (A) 0.3 k/uL (0-1.0); Monocytes % (A) 5 %; Neutrophils # (A) 4.8 k/uL (1.3-7.7); Neutrophils % (A) 74 %; Platelet Count 115 k/uL (150-450); RBC 4.14 m/uL (4.30-5.90); RDW 14.6 % (11.5-15.5); WBC 6.4 k/uL (3.8-10.6)
[2020-03-29 07:35] LABS: Calcium 8.4 mg/dL (8.4-10.2); Potassium 4.7 mmol/L (3.5-5.1)
[2020-03-29] MEDS: PANTOPRAZOLE 40 MG/10 ML VIAL IVP SCH (08:42)
[2020-03-29] MEDS: ATORVASTATIN 80 MG TAB PO SCH (08:42)
[2020-03-29] MEDS: SERTRALINE 100 MG TAB PO SCH ×2 (08:42→23:28)
[2020-03-29] MEDS: CLOPIDOGREL 75 MG TAB PO SCH (08:43)
[2020-03-29] MEDS: carvediloL 12.5 MG TAB PO SCH ×2 (08:43→18:56)
[2020-03-29] MEDS: HYDROcodone/APAP 5-325MG 1 EACH TAB PO PRN ×2 (08:53→18:59)
[2020-03-29] MEDS ORDERED: ASPIRIN 325 MG TAB PO SCH (09:00)
[2020-03-29] MEDS ORDERED: LOSARTAN 50 MG TAB PO SCH (09:45)
[2020-03-29] MEDS: ISOSORBIDE MONONITRATE ER 30 MG TAB.ER.24H PO SCH (10:27)
[2020-03-29] MEDS: amLODIPine 5 MG TAB PO SCH (10:27)
--- NOTE | 2020-03-29 11:04 | CONS ---
CONSULTATION Mr. Bee is a 64-year-old male with known history of hypertension, coronary artery disease, hyperlipidemia, history of severe peripheral disease who is followed at the [facility] and cardiology office down in [place], who presented to the hospital with symptoms of nausea, vomiting and subsequently chest discomfort. His symptoms started around Thanksgiving and he had some nausea and vomiting and subsequently had chest discomfort. He took nitroglycerin and subsequently came into the emergency room. He is feeling weak and tired. He is also complaining of left flank discomfort. The patient had a prior history of coronary artery disease with BENITEZ to LAD and saphenous vein graft to the PDA and diagonal. Had recurrent angina pectoris, underwent repeat cardiac catheterization in 2015 and at that time showed a severe distal left main disease, totally occluded LAD proximally, critical stenosis in the proximal circumflex and ostium of the ramus. He also had significant disease in the right coronary artery in the PLV. The BENITEZ to the LAD was patent. The saphenous vein graft to the right coronary artery and diagonal branch were occluded. He was readmitted to the hospital and underwent redo surgery in June of [address] Harmon and at that time received a left radial to the obtuse marginal branch and saphenous vein graft to the PDA. He has been complaining of occasional chest discomfort on and off. At the [facility], he was evaluated to undergo cardiac catheterization at the [facility] in [place], but he has not scheduled that yet. He has no significant dyspnea on exertion. No dizziness. No palpitation. No peripheral edema. No clear PND, orthopnea. No syncope. His coronary risk factors are hyperlipidemia. He is a nonsmoker. PAST MEDICAL HISTORY: He has a past history remarkable for severe peripheral vessel disease, status post bilateral carotid and the left endarterectomy and fem-fem bypass. MEDICATION: At home include rosuvastatin 40 mg daily, losartan 100 mg daily, Plavix 75 mg daily, Coreg 12.5 mg twice a day, aspirin once a day, and Zoloft. REVIEW OF SYSTEMS: Respiratory system: He has no recent wheezing. No cough. No dyspnea on exertion. GI system: No recent GI bleeding. He had nausea and vomiting and the abdominal pain yesterday. : No dysuria or hematuria. Nervous system: He had a history of stroke in the past. PHYSICAL EXAMINATION: He is a 64-year-old male, alert, oriented, in no apparent distress. Blood pressure running in the 160s-190s with a heart rate in the 60s. HEAD: Normocephalic. Eyes: Sclerae anicteric. Neck: Bilateral carotid scar and bruit. LUNGS: Clear to auscultation. HEART: Regular rate and rhythm S1, S2. No S3 with systolic murmur. No diastolic murmur. No rub. ABDOMEN: Soft. Nontender. Positive bowel sounds. No megaly. EXTREMITIES: No edema. Decreased distal pulses. LAB DATA: Revealed BUN and creatinine 29 and 2.06, improved from yesterday when it was 2.37. In the past, his renal function were stable in 2017. His potassium 4.7, hemoglobin 12.6. Cholesterol 142, LDL of 72. His troponin 0.017, 0.016 and 0.018. His EKG revealed a sinus mechanism, evidence left ventricular hypertrophy and inferior wall myocardial infarction of unknown timing. He had a chest x-ray that showed no evidence of acute infiltrate. His abdominal ultrasound revealed left-sided hydronephrosis with a calculus. IMPRESSION: 1. Chest discomfort. No evidence of acute coronary syndrome, could be related to the nausea and vomiting. 2. Status post redo coronary artery bypass grafting. 3. History of hypertension. 4. Hyperlipidemia. 5. Severe peripheral disease. 6. Abdominal pain. Workup in progress. RECOMMENDATIONS: From the cardiac standpoint, I will obtain echocardiogram with Doppler. We will continue his home medication. Follow his blood pressure and make adjustment. We will follow his renal function. I will add nitrate to his regimen. When stable, patient should follow up at the [facility] in [place] regarding his cardiac catheterization. Thank you for this consult. We will follow with you. MMODL / IJN: [id number] /
--- NOTE | 2020-03-29 15:41 | PN ---
PROGRESS NOTE DATE OF SERVICE: 03/29/2020 This 63-year-old gentleman admitted with chest pain, was evaluated by the [facility] for possible cardiac cath in outpatient setting. The patient admitted with chest pain. The patient has complaints of back pain. Back pain placement closely monitored. The creatinine is elevated up to 2.06. The troponins are found to be 0.017, 0.16 and 0.18. PHYSICAL EXAMINATION: Alert and oriented x3. Pulse is 68. Blood pressure 119/88, respiration 20, temperature 98 degrees, pulse ox 92% on room air. HEENT: Conjunctivae normal. NECK: No JVD. CARDIOVASCULAR: S1, S2 muffled. RESPIRATORY SYSTEM: Breath sounds diminished at the bases. No rhonchi. No crackles. ABDOMEN: Soft, nontender. LEGS are no edema. No swelling. NERVOUS SYSTEM: No focal deficits. LABS: WBC 6.5, hemoglobin 12.2, platelets 115, creatinine 2.06. ASSESSMENT: 1. Chest pain possible unstable angina. 2. Increased creatinine with possible acute renal failure. 3. Mild thrombocytopenia. 4. Increased random blood sugar. 5. Chronic obstructive pulmonary disease. 6. History of cerebrovascular accident, transient ischemic attack. 7. Hypertension. 8. Hyperlipidemia,. 9. History of myocardial infarction. 10.History of coronary artery disease, coronary artery bypass grafting. 11.History of carotid endarterectomy bilateral. 12.History of anxiety, bipolar. 13.History of nicotine dependence. 14.Obesity with body mass index of 33. RECOMMENDATIONS AND DISCUSSION: Recommend to continue current medications, management and symptomatic treatment. Continue unstable angina protocol. Closely follow with Cardiology. Repeat creatinine. Nephrology evaluation. Guarded prognosis because of multiple complex medical issues. Further recommendations to follow. MMODL / IJN: [id number] /
--- NOTE | 2020-03-29 16:06 | P.NPCON ---
History of Present Illness - Reason for Consult Consult date: 03/29/20 acute renal failure - Chief Complaint Chest pain - History of Present Illness 64-year-old gentleman coming to the hospital with the above complaints. He had nausea and chest pain with diaphoresis. Currently chest pain-free. He has history of renal cell cancer on the right kidney status post cryoablation. Previous creatinine 0.7-0.8 MG per DL in 2017 he does have chronic kidney disease, does not remember his kidney function. He follows with urology as outpatient. He does have history of nephrolithiasis in the past. Denies NSAID use or recent contrast studies. Review of Systems Constitutional: Reports as per HPI Past Medical History Past Medical History: Cancer, Chest Pain / Angina, COPD, CVA/TIA, Hyper lipidemia, Hypertension, Myocardial Infarction ([place]), Osteoarthritis ([place]) Additional Past Medical History / Comment(s): generalized fatigue, unable to walk distance,SOB, CVA-several yrs. 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 ago Last Myocardial Infarction Date:: 2012 History of Any Multi-Drug Resistant Organisms: None Reported Past Surgical History: Coronary Bypass/CABG, Heart Catheterization Additional Past Surgical History / Comment(s): earlene. carotid endarterectomy, triple bypass 2012, diaphragm repair post CABG, fem-fem. bypass, cancer removed from kidney Past Anesthesia/Blood Transfusion Reactions: No Reported Reaction Past Psychological History: Anxiety, Bipolar Smoking Status: Former smoker Past Alcohol Use History: Occasional Additional Past Alcohol Use History / Comment(s): quit smoking 2005, smoked for 40 yrs. 3ppd Past Drug Use History: None Reported - Past Family History Mother Family Medical History: Cancer Medications and Allergies Home Medications Medication Instructions Recorded Confirmed Type Aspirin 81 mg PO DAILY 04/04/16 03/28/20 History Clopidogrel [Plavix] 75 mg PO DAILY 04/04/16 03/28/20 History Nitroglycerin Sl Tabs [Nitrostat] 0.4 mg SUBLINGUAL Q5M PRN 04/04/16 03/28/20 History Sertraline HCl [Zoloft] 100 mg PO BID 04/04/16 03/28/20 History Carvedilol [Coreg] 12.5 mg PO BID 03/28/20 03/28/20 History Losartan Potassium 100 mg PO DAILY 03/28/20 03/28/20 History Rosuvastatin Calcium [Crestor] 40 mg PO DAILY 03/28/20 03/28/20 History Allergies Allergy/AdvReac Type Severity Reaction Status Date / Time No Known Allergies Allergy Verified 03/28/20 14:36 Physical Exam Vitals: Vital Signs Temp Pulse Pulse Resp BP BP Pulse Ox 03/29/20 09:00 68 20 03/29/20 08:54 98.0 F 68 20 190/89 92 L 03/29/20 03:00 98.1 F 65 20 161/76 93 L 03/29/20 00:07 94 20 03/28/20 20:17 98.0 F 64 20 161/82 94 L 03/28/20 18:00 66 18 165/88 97 Intake and Output 03/29/20 03/29/20 03/29/20 06:59 14:59 22:59 Intake Total 405 Balance 405 Intake: Intake, IV Titration 375 Amount Sodium Chloride 0.9% 1, 375 000 ml @ 75 mls/hr IV . [id number] [facility] Rx#:[id number] Oral 30 Other: Voiding Method Toilet Toilet # Voids 1 1 No acute distress Lying comfortable S1-S2 heard Diminished breath sounds Abdomen distended No edema Results - Lab Results Most recent lab results Calcium 8.4 mg/dL (8.4-10.2) 03/29/20 06:54 Magnesium 2.0 mg/dL (1.6-2.3) 03/28/20 13:45 03/29/20 06:54 03/29/20 06:54 Assessment and Plan Assessment: #1 acute kidney injury/progressive chronic kidney disease. Suspect prerenal process. -Left hydronephrosis #2 acute coronary syndrome #3 suspected CK D, unknown baseline creatinine. #4 right renal cell cancer status post cryoablation. #5 hypertension with chronic kidney disease #6 multiple cyst in the left kidney Plan: #1 continue with normal saline at 75 ML's an hour. #2 urology evaluation for left hydronephrosis #3 discontinue losartan, increase carvedilol to 25 mg twice a day. #4 avoid nephrotoxic agents and hypotensive episodes.
[2020-03-29] MEDS: ONDANSETRON 4 MG/2 ML VIAL IVP PRN (22:41)
[2020-03-30] MEDS: HYDROcodone/APAP 5-325MG 1 EACH TAB PO PRN ×3 (01:30→21:56)
[2020-03-30] MEDS: carvediloL 12.5 MG TAB PO SCH ×2 (06:56→17:59)
[2020-03-30] MEDS: ONDANSETRON 4 MG/2 ML VIAL IVP PRN ×2 (06:58→17:59)
[2020-03-30] MEDS: ASPIRIN 81 MG PO SCH (09:38)
[2020-03-30] MEDS: ISOSORBIDE MONONITRATE ER 30 MG TAB.ER.24H PO SCH (09:38)
[2020-03-30] MEDS: SERTRALINE 100 MG TAB PO SCH ×2 (09:38→21:56)
[2020-03-30] MEDS: CLOPIDOGREL 75 MG TAB PO SCH (09:38)
[2020-03-30] MEDS: ATORVASTATIN 80 MG TAB PO SCH (09:38)
[2020-03-30] MEDS: amLODIPine 5 MG TAB PO SCH (09:39)
[2020-03-30] MEDS: PANTOPRAZOLE 40 MG TABLET PO SCH (09:39)
--- NOTE | 2020-03-30 10:24 | P.PN ---
Subjective Progress Note Date: 03/30/20 CHIEF COMPLAINT: Chest pain HISTORY OF PRESENT ILLNESS: Patient examined this morning the bedside. Patient denies any further chest pain or pressure. He denies short of breath. Patient continues to report nausea and "kidney pain". He has been evaluated by [facility] who is recommending urology consultation secondary to left hydronephrosis. Blood pressure this morning 130/66. Heart rate in the 60s. PHYSICAL EXAM: VITAL SIGNS: Reviewed. GENERAL: Well-developed in no acute distress. NECK: Supple. No JVD or thyromegaly LUNGS: Respirations even and unlabored. Lungs essentially clear to auscultation bilaterally. HEART: Regular rate and rhythm. S1 and S2 heard. EXTREMITIES: Normal range of motion. No clubbing or cyanosis. Peripheral pulses intact. No lower extremity edema ASSESSMENT: Chest pain, and acute coronary event has been ruled out Nausea Left hydronephrosis Hypertension Hyperlipidemia History of redo coronary artery bypass grafting Peripheral vascular disease PLAN: Continue current cardiac medications 2-D echo has been ordered. Await results If no significant abnormalities noted on 2-D echo, patient may be discharged from a cardiac perspective and he may follow up with his motorman/woman at the [facility] regarding his cardiac catheterization. Nurse practitioner note has been reviewed by physician. Signing provider agrees with the documented findings, assessment, and plan of care. Objective - Vital Signs Vital signs: Vital Signs Temp 98.3 F 03/30/20 09:30 Pulse 63 03/30/20 09:30 Resp 18 03/30/20 09:30 BP 130/66 03/30/20 09:30 Pulse Ox 90 L 03/30/20 09:30 Intake & Output 03/29/20 03/30/20 03/30/20 18:59 06:59 18:59 Intake Total 405 540 Balance 405 540 Intake: Intake, IV Titration 375 Amount Sodium Chloride 0.9% 1, 375 000 ml @ 75 mls/hr IV . [id number] [facility] Rx#:[id number] Oral 30 540 Other: Voiding Method Toilet Toilet Toilet # Voids 1 2 - Labs CBC & Chem 7: 03/29/20 06:54 03/29/20 06:54
[2020-03-30 10:30] LABS: Basophils % (A) 1 %; Eosinophils # (A) 0.1 k/uL (0-0.7); Eosinophils % (A) 2 %; HCT 34.8 % (39.0-53.0); HGB 11.3 gm/dL (13.0-17.5); Lymphocytes # (A) 0.8 k/uL (1.0-4.8); Lymphocytes % (A) 13 %; MCHC 32.4 g/dL (31.0-37.0); MCV 92.6 fL (80.0-100.0); Mean Platelet Volume 7.8; Monocytes # (A) 0.4 k/uL (0-1.0); Monocytes % (A) 6 %; Neutrophils # (A) 4.3 k/uL (1.3-7.7); Neutrophils % (A) 76 %; Platelet Count 101 k/uL (150-450); RBC 3.76 m/uL (4.30-5.90); RDW 14.5 % (11.5-15.5); WBC 5.7 k/uL (3.8-10.6)
--- NOTE | 2020-03-30 10:39 | ECHOF ---
Referral Reason:cad MEASUREMENTS -------- HEIGHT: 180.3 cm WEIGHT: 107.0 kg BP: 159/70 RVIDd: 3.5 cm (< 3.3) IVSd: 1.6 cm (0.6 - 1.1) LVIDd: 5.4 cm (3.9 - 5.3) LVPWd: 1.5 cm (0.6 - 1.1) IVSs: 2.2 cm LVIDs: 4.6 cm LVPWs: 2.1 cm LA Diam: 4.0 cm (2.7 - 3.8) LAESV Index (A-L): 32.29 ml/m Ao Diam: 3.9 cm (2.0 - 3.7) AV Cusp: 2.4 cm (1.5 - 2.6) MV EXCURSION: 20.651 mm (> 18.000) MV EF SLOPE: 119 mm/s (70 - 150) EPSS: 1.1 cm MV E Que: 0.91 m/s MV DecT: 176 ms MV A Que: 0.45 m/s MV E/A Ratio: 2.03 RAP: 5.00 mmHg RVSP: 42.57 mmHg FINDINGS -------- Sinus rhythm. This was a technically adequate study. The left ventricular size is normal. There is moderate concentric left ventricular hypertrophy. O verall left ventricular systolic function is mild-moderately impaired with, an EF between 40 - 45 %. Basal lateral LV wall motion is hypokinetic. Basal inferior LV wall motion is akinetic. Basal inferoseptal LV wall motion is akinetic. Mid inferior LV wall motion is hypokinetic. The right ventricle is mildly enlarged. LA is midly dilated 29-33ml/m2. The right atrial size is normal. 3 ml of Lumason was utilized for enhancement of images. Interatrial and interventricular septum intact. There is mild aortic valve sclerosis. Mild mitral annular calcification present. Mild mitral regurgitation is present. Mild tricuspid regurgitation present. There is mild pulmonary hypertension. The right ventricular systolic pressure, as measured by Doppler, is 42.57mmHg. The pulmonic valve was not well visualized. There is no pulmonic regurgitation present. The aortic root is dilated measuring 3.9cm. Normal inferior vena cava with normal inspiratory collapse consistent with estimated right atrial pre ssure of 5 mmHg. There is no pericardial effusion. CONCLUSIONS -------- 1. There is moderate concentric left ventricular hypertrophy. 2. Overall left ventricular systolic function is mild-moderately impaired with, an EF between 40 - 45 %. 3. Basal lateral LV wall motion is hypokinetic. 4. Basal inferior LV wall motion is akinetic. 5. Basal inferoseptal LV wall motion is akinetic. 6. Mid inferior LV wall motion is hypokinetic. 7. The right ventricle is mildly enlarged. 8. LA is midly dilated 29-33ml/m2. 9. 3 ml of Lumason was utilized for enhancement of images. 10. There is mild aortic valve sclerosis. 11. Mild mitral annular calcification present. 12. Mild mitral regurgitation is present. 13. Mild tricuspid regurgitation present. 14. There is mild pulmonary hypertension. 15. The aortic root is dilated measuring 3.9cm. 16. There is no pericardial effusion. WHOLESALE ACCOUNT EXECUTIVE: Elisa Gagnon RDCS
[2020-03-30 10:50] LABS: Potassium 4.3 mmol/L (3.5-5.1)
--- NOTE | 2020-03-30 12:04 | P.PN ---
Subjective Patient is seen in follow-up for acute kidney injury. Patient's creatinine was 2.37 on admission and is down to 1.87 today. Has been voiding. No chest pain or shortness breath. No edema. Did have some nausea this morning and dry heaving yesterday but no vomiting. Vital signs are stable. General: The patient appeared well nourished and normally developed. HEENT: Head exam is unremarkable. Neck is without jugular venous distension. LUNGS: Breath sounds decreased. HEART: Rate and Rhythm are regular. ABDOMEN: Soft, nontender. EXTREMITITES: No edema. Objective - Vital Signs Vital signs: Vital Signs Temp 98.3 F 03/30/20 09:30 Pulse 63 03/30/20 09:30 Resp 18 03/30/20 09:30 BP 130/66 03/30/20 09:30 Pulse Ox 90 L 03/30/20 09:30 Intake & Output 03/29/20 03/30/20 03/30/20 18:59 06:59 18:59 Intake Total 405 540 Balance 405 540 Intake: Intake, IV Titration 375 Amount Sodium Chloride 0.9% 1, 375 000 ml @ 75 mls/hr IV . [id number] [facility] Rx#:[id number] Oral 30 540 Other: Voiding Method Toilet Toilet Toilet # Voids 1 2 - Labs CBC & Chem 7: 03/30/20 09:46 03/30/20 09:46 Labs: Abnormal Lab Results - Last 24 Hours (Table) 03/30/20 03/30/20 Range/Units 09:46 09:46 RBC 3.76 L (4.30-5.90) m/uL Hgb 11.3 L (13.0-17.5) gm/dL Hct 34.8 L (39.0-53.0) % Plt Count 101 L (150-450) k/uL Lymphocytes # 0.8 L (1.0-4.8) k/uL BUN 21 H (9-20) mg/dL Creatinine 1.87 H (0.66-1.25) mg/dL Glucose 123 H (74-99) mg/dL Calcium 8.0 L (8.4-10.2) mg/dL Assessment and Plan Plan: Assessment: 1. Acute kidney injury mostly prerenal improving with IV hydration. Creatinine was 2.37 on admission and is 1.87 today. UA fairly benign. 2. Left-sided hydronephrosis with kidney stone. Urology consulted. 3. Chronic kidney disease. Need to establish baseline renal function. Creatinine in 2017 was 0.78. 4. History of renal cell cancer status post cryoablation. 5. Hypertension with chronic kidney disease. Stable. 6. Kidney cysts. 7. Chronic systolic CHF with ejection fraction of 40-45%. Plan: Hep-Lock IV fluids. Encouraged oral intake. Urology recommendations pending. Patient will need to follow up outpatient to establish CKD care.
--- NOTE | 2020-03-30 14:37 | CT ---
EXAMINATION TYPE: CT abdomen pelvis wo con DATE OF EXAM: 03/30/2020 COMPARISON: 07/21/2016 INDICATION: left hydronephrosis, history of left renal calculi DLP: 1048.4 mGycm, Automated exposure control for dose reduction was used. CONTRAST: 0 mL of Isovue 300. Study performed without Oral Contrast TECHNIQUE: Axial images were obtained from above the diaphragm to the pubic rami in the axial plane a t 5 mm thick sections. Reconstructed images are reviewed on the computer in the coronal plane. FINDINGS: Limited CT sections are obtained the lung bases. There is some mild compressive atelectasis within t he bilateral lung bases. Small bilateral pleural effusions are present. Coronary artery calcification s present.. CT ABDOMEN: Liver: Normal Spleen: Splenomegaly is present measuring 15.6 cm. Normal less than 12.5 cm. Pancreas: Normal Adrenal glands: Left adrenal gland is slightly full measuring 1.5 cm. This was present previously Gallbladder: Normal Kidneys: No masses are evident. There is a left hydronephrosis. No cysts are present. There is a 0.9 cm nonobstructing mid left renal stone present. There is an obstructing 1.2 x 0.7 cm calcification within the proximal left ureter causing moderate h ydronephrosis. Aorta: Vascular calcification is within the aorta. Inferior vena cava: Normal. CT PELVIS: Loops of bowel within the abdomen and pelvis are normal. Scattered diverticuli are present without a cute diverticulitis. Study is without oral contrast limiting bowel evaluation Appendix: Not visualized. No suspicious dilated tubular structure or inflammatory changes evident. Urinary bladder: Normal. Genitourinary structures: Prostate is somewhat full with a few small calcifications present. Osseous structures: Punctate sclerotic areas within the intertrochanteric region left hip is may be a small bone island. Small sclerotic metastasis is considered less likely IMPRESSIONS: 1. 1.2 x 0.7 cm obstructing proximal left with moderate hydronephrosis and enlarged left kidney. 2. Nonobstructing mid left posterior renal stone. 3. Scattered diverticuli without acute diverticulitis. 4. Splenomegaly. 5. Stable mild prominence of left adrenal gland.
--- NOTE | 2020-03-30 18:45 | PN ---
PROGRESS NOTE DATE OF SERVICE: 03/30/2020 INTERVAL HISTORY: This 63-year-old gentleman was admitted with chest pain, was slated to have a cardiac catheterization in [facility]. The patient also had renal failure. Patient also had left hydronephrosis, obstructive uropathy. Nephrology has recommended urology evaluation and abdominal and pelvis CAT scan was done which showed evidence of 1.2 x 0.7 obstructing proximal left with moderate hydronephrosis and large left kidney and nonobstructing mild mid left posterior renal stone also noted. Splenomegaly is also noted. Patient is being closely monitored. No chest pain. No palpitations. No fever. PHYSICAL EXAMINATION: GENERAL: Patient is alert and oriented times three. VITAL SIGNS: Pulse 63, blood pressure 136/60, respirations 18, temperature 98.3, pulse ox 98% on room air. HEENT: Conjunctivae normal. Oral mucosa moist. NECK: No jugular venous distention. RESPIRATORY: Breath sounds diminished at the bases. No rhonchi, no crackles. HEART: S1 and S2, muffled. ABDOMEN: Soft, no tenderness. NERVOUS: No focal deficits. LABS: Creatinine 1.87, hemoglobin 11.6. Cultures are noted. ASSESSMENT: 1. Chest pain possible unstable angina. Myocardial infarction ruled out. 2. Increased creatinine with possible acute renal failure, possibly post obstructive. 3. Left hydronephrosis with left nephrolithiasis. 4. Splenomegaly. 5. Mild thrombocytopenia. 6. Increased random blood sugar. 7. Chronic obstructive pulmonary disease history. 8. History of cerebrovascular accident and transient ischemic attack. 9. Hypertension. 10.Hyperlipidemia. 11.History of myocardial infarction. 12.History of coronary artery disease with coronary artery bypass graft. 13.History of carotid endarterectomy, bilateral. 14.Anxiety, bipolar. 15.History of nicotine dependence. 16.Obesity with body mass index 33. RECOMMENDATION AND DISCUSSION: Recommend to continue current medications, symptomatic treatment. Otherwise at this time I recommend repeat labs. Guarded prognosis because of multiple complex medical issues and further recommendations to follow. Urology evaluation. MMODL / IJN: [id number] /
--- NOTE | 2020-03-30 20:14 | P.GSCN ---
History of Present Illness Consult date: 03/30/20 Reason for Consult: Left hydronephrosis History of present illness: The patient is a 64-year-old male admitted through the ER on 03/28 for evalu ation of chest pain. He said that he had experienced the chest pain earlier that day and it resolved after taking some nitroglycerin. Serial troponins and EKG have shown no definite evidence of acute myocardial infarction. He has been seen by Dr Salvador and it was recommended that he follow-up with the [facility] manager project that had last evaluated him. He was also experiencing some nausea and left flank pain on admission which he said had actually started 3-4 days prior to [facility]. When evaluated in the emergency room he was noted to have a BUN of 30 and a creatinine of 2.36. Urinalysis showed 1 red cell and 1 white cell per high-powered field. Renal ultrasound on 03/28 showed multiple cysts in the left kidney and mild left hydronephrosis with what appeared to be a 15 x 20 x 4 mm left renal calculus. There were scars in the right kidney consistent with a previous cryotherapy for a renal tumor performed approximately 10 years ago at [facility]. The patient has no history of urolithiasis. He has experienced no gross hematuria or change in his normal voiding pattern. He has no history of urinary tract infection. CT scan of the abdomen and pelvis without IV contrast was performed this afternoon and confirmed [id number] left hydronephrosis secondary to a 7 x 11 mm calculus in the proximal right ureter. A nonobstructive 7 x 17 mm calculus was also noted in the mid pole of the left kidney. Scarring was noted in the right kidney consistent with the previous cryoablation procedure. Review of Systems - Constitutional Reports malaise, Denies chills, Denies fever - Cardiovascular Denies shortness of breath - Gastrointestinal Reports abdominal pain (Left flank), Denies change in bowel habits - Genitourinary Denies dysuria, Denies hematuria, Denies urinary frequency Past Medical History Past Medical History: Cancer, Chest Pain / Angina, COPD, CVA/TIA, Hyperlipidemia, Hypertension, Myocardial Infarction ([place]), Osteoarthritis ([place]) Additional Past Medical History / Comment(s): generalized fatigue, unable to walk distance,SOB, CVA-several yrs. ago-post carotid endarterectomy-no residual effects Last Myocardial Infarction Date:: 2012 History of Any Multi-Drug Resistant Organisms: None Reported Past Surgical History: Coronary Bypass/CABG, Heart Catheterization Additional Past Surgical History / Comment(s): earlene. carotid endarterectomy, triple bypass 2012, diaphragm repair post CABG, fem-fem. bypass, Cryoablation of right renal tumor- approximately 2009 at [facility] Past Anesthesia/Blood Transfusion Reactions: No Reported Reaction Past Psychological History: Anxiety, Bipolar Smoking Status: Former smoker Past Alcohol Use History: Occasional Additional Past Alcohol Use History / Comment(s): quit smoking 2005, smoked for 40 yrs. 3ppd Past Drug Use History: None Reported - Past Family History Mother Family Medical History: Cancer Medications and Allergies Home Medications Medication Instructions Recorded Confirmed Type Aspirin 81 mg PO DAILY 04/04/16 03/28/20 History Clopidogrel [Plavix] 75 mg PO DAILY 04/04/16 03/28/20 History Nitroglycerin Sl Tabs [Nitrostat] 0.4 mg SUBLINGUAL Q5M PRN 04/04/16 03/28/20 History Sertraline HCl [Zoloft] 100 mg PO BID 04/04/16 03/28/20 History Carvedilol [Coreg] 12.5 mg PO BID 03/28/20 03/28/20 History Losartan Potassium 100 mg PO DAILY 03/28/20 03/28/20 History Rosuvastatin Calcium [Crestor] 40 mg PO DAILY 03/28/20 03/28/20 History Allergies Allergy/AdvReac Type Severity Reaction Status Date / Time No Known Allergies Allergy Verified 03/28/20 14:36 Surgical - Exam Vital Signs Temp Pulse Resp BP Pulse Ox 98.2 F 73 18 116/70 95 03/28/20 13:32 03/28/20 13:32 03/28/20 13:32 03/28/20 13:32 03/28/20 13:32 - General well developed, well nourished, no distress - ENT no hearing loss - Neck no masses, no lymphadectomy - Respiratory normal respiratory effort - Abdomen Abdomen: soft, tender (Mild tenderness in left flank), no organomegaly Hernia: none - Genitourinary normal penis with no external lesions, testicles non-tender Results - Labs 03/30/20 09:46 03/30/20 09:46 Abnormal Lab Results - Last 24 Hours (Table) 03/30/20 03/30/20 Range/Units 09:46 09:46 RBC 3.76 L (4.30-5.90) m/uL Hgb 11.3 L (13.0-17.5) gm/dL Hct 34.8 L (39.0-53.0) % Plt Count 101 L (150-450) k/uL Lymphocytes # 0.8 L (1.0-4.8) k/uL BUN 21 H (9-20) mg/dL Creatinine 1.87 H (0.66-1.25) mg/dL Glucose 123 H (74-99) mg/dL Calcium 8.0 L (8.4-10.2) mg/dL Diabetes panel 03/30/20 Range/Units 09:46 Sodium 138 (137-145) mmol/L Potassium 4.3 (3.5-5.1) mmol/L Chloride 106 (98-107) mmol/L Carbon Dioxide 26 (22-30) mmol/L BUN 21 H (9-20) mg/dL Creatinine 1.87 H (0.66-1.25) mg/dL Glucose 123 H (74-99) mg/dL Calcium 8.0 L (8.4-10.2) mg/dL Calcium panel 03/30/20 Range/Units 09:46 Calcium 8.0 L (8.4-10.2) mg/dL Pituitary panel 03/30/20 Range/Units 09:46 Sodium 138 (137-145) mmol/L Potassium 4.3 (3.5-5.1) mmol/L Chloride 106 (98-107) mmol/L Carbon Dioxide 26 (22-30) mmol/L BUN 21 H (9-20) mg/dL Creatinine 1.87 H (0.66-1.25) mg/dL Glucose 123 H (74-99) mg/dL Calcium 8.0 L (8.4-10.2) mg/dL Adrenal panel 03/30/20 Range/Units 09:46 Sodium 138 (137-145) mmol/L Potassium 4.3 (3.5-5.1) mmol/L Chloride 106 (98-107) mmol/L Carbon Dioxide 26 (22-30) mmol/L BUN 21 H (9-20) mg/dL Creatinine 1.87 H (0.66-1.25) mg/dL Glucose 123 H (74-99) mg/dL Calcium 8.0 L (8.4-10.2) mg/dL Assessment and Plan Assessment: The patient's elevated BUN and creatinine at the time of admission are probably in part related to reduce fluid intake prior to admission and in part related to acute left hydronephrosis from a proximal left ureteral calculus. Patient's renal function has improved since admission with a BUN/creatinine of 21/1.87 noted today. I discussed with the patient options of treatment of his left ureteral calculus including further observation and the use of an alpha-billy in hopes that the calculus will pass spontaneously, extracorporeal shockwave lithotripsy or ureteroscopy with lithotripsy. The likelihood of spontaneous passage of the calculus is low given its location and size. Unfortunately ESWL will not be available until 04/06. The patient says that he's had intermittent severe pain and would prefer to proceed with left ureteroscopy with lithotripsy as soon as possible. I explained to him that he may be necessary to leave a double-J catheter following the procedure and that it may not be possible to treat both the left ureteral calculus and left renal calculus under the same anesthetic. The patient has no further questions and wishes to proceed with the procedure tomorrow if possible. (1) Hydronephrosis with renal and ureteral calculous obstruction Current Visit: Yes Status: Acute Code(s): N13.2 - HYDRONEPHROSIS WITH RENAL AND URETERAL CALCULOUS OBSTRUCTION SNOMED Code(s): 216115563
[2020-03-30] MEDS: SODIUM CHLORIDE 0.9% 1,000 ML IV SCH (21:37)
[2020-03-31] MEDS: HYDROcodone/APAP 5-325MG 1 EACH TAB PO PRN ×2 (05:53→11:30)
[2020-03-31] MEDS: ONDANSETRON 4 MG/2 ML VIAL IVP PRN ×2 (05:53→11:31)
[2020-03-31] MEDS: amLODIPine 5 MG TAB PO SCH (08:51)
[2020-03-31] MEDS: PANTOPRAZOLE 40 MG TABLET PO SCH (08:51)
[2020-03-31] MEDS: ATORVASTATIN 80 MG TAB PO SCH (08:51)
[2020-03-31] MEDS: SERTRALINE 100 MG TAB PO SCH (08:51)
[2020-03-31] MEDS: carvediloL 12.5 MG TAB PO SCH (08:51)
[2020-03-31] MEDS: ISOSORBIDE MONONITRATE ER 30 MG TAB.ER.24H PO SCH (08:52)
[2020-03-31] MEDS: ASPIRIN 81 MG PO SCH (08:52)
[2020-03-31] MEDS: CLOPIDOGREL 75 MG TAB PO SCH (08:52)
--- NOTE | 2020-03-31 09:12 | PN ---
PROGRESS NOTE Mr. Bee is a 64-year-old male with a known history of coronary artery disease, status post redo coronary artery bypass grafting who has been complaining predominantly of left flank discomfort. He has been evaluated by Dr. Burger and has evidence off nephrolithiasis and hydronephrosis and scheduled to undergo double-J catheter today. He had an echocardiogram yesterday that showed a mildly to moderately impaired left ventricular systolic function with segmental wall motion abnormality and mild mitral and tricuspid regurgitation. He continues to be at this time on amlodipine 5 mg daily, aspirin 81 mg daily, Lipitor 80 mg daily, Coreg 25 mg twice a day, Plavix 75 mg daily, isosorbide mononitrate 30 mg daily, Protonix, sertraline, and temazepam on a p.r.n. basis. PHYSICAL EXAMINATION: Blood pressure 130/80 with a heart rate in the 50s. LUNGS: Clear. HEART: Regular rate and rhythm S1, S2. No S3 with systolic murmur, no diastolic murmur, no rub. ABDOMEN: Soft, nontender. EXTREMITIES: No edema. LAB DATA: BUN and creatinine yesterday of 21 and 1.87. IMPRESSION: 1. Nephrolithiasis and hydronephrosis. 2. History of redo coronary artery bypass grafting, stable. 3. History of severe peripheral vascular disease. 4. History of hypertension. 5. Hyperlipidemia. RECOMMENDATION: From the cardiac standpoint, will continue present therapy. Patient will follow up at the [facility] following discharge. In the meantime, from the cardiac standpoint, he is stable. We will see him on as-needed basis. Please feel free to call us for any question. MMODL / IJN: [id number] /
--- NOTE | 2020-03-31 10:14 | P.PN ---
Subjective Patient is seen in follow-up for acute kidney injury. Patient's creatinine was 2.37 on admission and was down to 1.87 as of yesterday. Has been voiding. Feels nauseous. No chest pain or shortness breath. No edema. Scheduled for left ureteroscopy with lithotripsy today. Vital signs are stable. General: The patient appeared well nourished and normally developed. HEENT: Head exam is unremarkable. Neck is without jugular venous distension. LUNGS: Breath sounds decreased. HEART: Rate and Rhythm are regular. ABDOMEN: Soft, nontender. EXTREMITITES: No edema. Objective - Vital Signs Vital signs: Vital Signs Temp 97.9 F 03/31/20 08:46 Pulse 58 L 03/31/20 08:46 Resp 18 03/31/20 08:46 BP 166/75 03/31/20 08:46 Pulse Ox 93 L 03/31/20 08:46 Intake & Output 03/30/20 03/31/20 03/31/20 18:59 06:59 18:59 Intake Total 540 Balance 540 Intake: Oral 540 Other: Voiding Method Toilet Toilet Toilet # Voids 1 1 - Labs CBC & Chem 7: 03/30/20 09:46 03/30/20 09:46 Labs: Abnormal Lab Results - Last 24 Hours (Table) 03/30/20 03/30/20 Range/Units 09:46 09:46 RBC 3.76 L (4.30-5.90) m/uL Hgb 11.3 L (13.0-17.5) gm/dL Hct 34.8 L (39.0-53.0) % Plt Count 101 L (150-450) k/uL Lymphocytes # 0.8 L (1.0-4.8) k/uL BUN 21 H (9-20) mg/dL Creatinine 1.87 H (0.66-1.25) mg/dL Glucose 123 H (74-99) mg/dL Calcium 8.0 L (8.4-10.2) mg/dL Assessment and Plan Plan: Assessment: 1. Acute kidney injury mostly prerenal improving with IV hydration. Also lik sherie component of obstructive uropathy. Creatinine was 2.37 on admission and 1.87 as of yesterday. UA fairly benign. 2. Left-sided hydronephrosis with kidney stone. Urology following. Scheduled for left ureteroscopy with lithotripsy today. 3. Chronic kidney disease. Need to establish baseline renal function. Creatinine in 2017 was 0.78. 4. History of renal cell cancer status post cryoablation. 5. Hypertension with chronic kidney disease. Stable. 6. Kidney cysts. 7. Chronic systolic CHF with ejection fraction of 40-45%. Plan: Off IV fluids. Encouraged oral intake. Continue to monitor renal function and urine output. Patient will need to follow up outpatient to establish CKD care.
[2020-03-31 10:15] LABS: Basophils % (A) 1 %; Eosinophils # (A) 0.2 k/uL (0-0.7); Eosinophils % (A) 3 %; HCT 34.7 % (39.0-53.0); HGB 11.6 gm/dL (13.0-17.5); Lymphocytes # (A) 1.1 k/uL (1.0-4.8); Lymphocytes % (A) 17 %; MCH 30.2 pg (25.0-35.0); MCHC 33.5 g/dL (31.0-37.0); MCV 90.3 fL (80.0-100.0); Mean Platelet Volume 7.7; Monocytes # (A) 0.4 k/uL (0-1.0); Monocytes % (A) 6 %; Neutrophils # (A) 4.7 k/uL (1.3-7.7); Neutrophils % (A) 72 %; Platelet Count 116 k/uL (150-450); RBC 3.84 m/uL (4.30-5.90); RDW 13.8 % (11.5-15.5); WBC 6.5 k/uL (3.8-10.6)
[2020-03-31 10:21] LABS: Calcium 8.7 mg/dL (8.4-10.2); Potassium 4.5 mmol/L (3.5-5.1)
[2020-03-31] MEDS ORDERED: MIDAZOLAM 2 MG/2 ML VIAL ONE (18:44)
[2020-03-31] MEDS ORDERED: PROPOFOL 10 MG/ML 20 ML VIAL IV ONE (18:44)
[2020-03-31] MEDS ORDERED: fentaNYL (PF) 50 MCG/ML 2 ML AMP ONE (18:44)
[2020-03-31] MEDS ORDERED: ceFAZolin 1,000 MG VIAL IVPB ONE (18:49)
[2020-03-31] MEDS ORDERED: IOPAMIDOL-370 50ML BTL MISCELLANE ONE (18:49)
[2020-03-31] MEDS ORDERED: LACTATED RINGERS 1,000 ML IV ONE (18:49)
--- NOTE | 2020-03-31 20:21 | P.OP ---
Date of Procedure: 03/31/20 Preoperative Diagnosis: Proximal left ureteral calculus with hydronephrosis Postoperative Diagnosis: Proximal left ureteral calculus with hydronephrosis Procedure(s) Performed: Cystoscopy with left ureteroscopy, lithotripsy and placement of left double-J c atheter Anesthesia: GETA Surgeon: Andres Burger Estimated Blood Loss (ml): 0 Pathology: other (Fragments of left ureteral calculus) Condition: stable Disposition: PACU Indications for Procedure: The patient is a 64-year-old male admitted with left flank pain, nausea and vomiting and an elevated creatinine. Renal ultrasound showed left hydronephrosis. Computed tomography scan identified a 7 x 11 mm calculus in the proximal left ureter and a larger nonobstructive calculus in the lower pole of the left kidney. Patient continues to have intermittent pain. Left ureteroscopy with lithotripsy is planned for treatment of the obstructive calculus. Description of Procedure: The patient was taken to the operating suite where general anesthesia via LMA was instituted. He was placed in the dorsal lithotomy position with his legs suspended from padded Remington stirrups. Pneumatic compression stockings were applied to the lower legs. The genitalia was prepped with Betadine soap, painted with Betadine solution and draped in a sterile fashion. The penile and prostatic urethra were traversed under direct vision using the 23-Maldivian cystoscope sheath and 30 lens. The anterior urethra was unremarkable. Prostatic urethra showed evidence of moderate lateral lobe enlargement consistent with the patient's age. The bladder was examined. On the floor the bladder was large amount of sand but no calculus. The right ureteral orifice was of normal location and configuration. The left ureter orifice appeared somewhat patulous. It was initially unclear whether the patient might have passed the left ureteral calculus without being aware of it however he had been straining his urine. The left ureter was opacified using an 8-Maldivian cone- tipped catheter and contrast. A filling defect was confirmed in the proximal left ureter at the site that the original computed tomography scan showed the impacted ureter. The cystoscope was withdrawn. The digital flexible ureteroscope was then through the urethra and into the bladder. The left ureteral orifice was identified and ureteroscope was passed through it. The distal and mid ureter was examined and was unremarkable. The calculus was identified in the proximal ureter but at this point there was some tortuosity which made visualization of the calculus suboptimal. I initially began lithotripsy using the holmium laser and a 270 fiber at a dusting setting of 400 mJ and 40 cps. The calculus broke readily but unfortunately due to angulation of the ureter it was not possible to continually visualize the calculus. The 0.035 Glidewire was advanced through the ureteroscope and ureteroscope was withdrawn. A 13-Maldivian ureteral reentry sheath with 11-Maldivian obturator was advanced over the Glidewire and positioned so that the proximal and of the reentry sheath was in the proximal ureter distal to the calculus. Even in doing this it was impossible to safely visualize the ureter for lithotripsy. I passed the 0.035 straight Glidewire through the reentry sheath and beyond the calculus and finally the ureter straightened to the point where it was possible to safely visualize the calculus for lithotripsy. The remainder the calculus was broken down into very small fragments. The interior the calculus was more dense and brownish in color. The outer portion of the calculus was yellow-gardiner. The larger remaining calculus fragments were removed from the ureter using the 1.9-Maldivian nitinol stone basket submitted for stone analysis. Due to the length of time and concern in regard to persistent edema at the site of the calculus it was elected not to try lithotripsy of the larger calculus in the lower pole of the left kidney. The ureteroscope was withdrawn. The reentry sheath was removed leaving the Glidewire in place. The 23-Maldivian cystoscope sheath with 30 lens was backloaded over the Glidewire and reintroduced into the bladder. A 6-Maldivian by 24 cm double-J catheter was advanced over the Glidewire and positioned fluoroscopically so that the proximal end coiled in the region of the renal pelvis and the distal and coiled in the bladder. Patient tolerated the procedure well and left the operative room awake and in satisfactory condition. There was no blood loss. Patient will be observed overnight and discharged in the morning if he is comfortable. It may be possible to treat the calculus in the lower pole of left kidney using ESWL in the future prior to removal of the double-J catheter.
[2020-04-01] MEDS: carvediloL 12.5 MG TAB PO SCH ×2 (00:07→06:35)
[2020-04-01] MEDS: HYDROcodone/APAP 5-325MG 1 EACH TAB PO PRN (00:08)
[2020-04-01] MEDS: SERTRALINE 100 MG TAB PO SCH ×2 (00:24→09:30)
--- NOTE | 2020-04-01 07:27 | FL ---
Fluoroscopy HISTORY: Cystoscopy and lithotripsy, catheter insertion 49 seconds fluoroscopy time supplied to the referring clinician. 1 intraoperative C-arm images docum ent the procedure. See dictated report from urology.
[2020-04-01 08:52] VITALS: BP 129/65; PULSE 50; RESP 16; TEMP 97.7
[2020-04-01] MEDS: amLODIPine 5 MG TAB PO SCH (09:30)
[2020-04-01] MEDS: PANTOPRAZOLE 40 MG TABLET PO SCH (09:30)
[2020-04-01] MEDS: ISOSORBIDE MONONITRATE ER 30 MG TAB.ER.24H PO SCH (09:30)
[2020-04-01] MEDS: CLOPIDOGREL 75 MG TAB PO SCH (09:30)
[2020-04-01] MEDS: ATORVASTATIN 80 MG TAB PO SCH (09:30)
[2020-04-01] MEDS: ASPIRIN 81 MG PO SCH (09:30)
[2020-04-01 09:32] LABS: Calcium 8.7 mg/dL (8.4-10.2); Potassium 4.5 mmol/L (3.5-5.1)
--- NOTE | 2020-04-01 09:50 | P.PN ---
Subjective Patient is seen in follow-up for acute kidney injury. Patient's creatinine was 2.37 on admission and was down to 1.56 today. Feels better today. He underwent cystoscopy with lithotripsy and left double-J catheter placement March 31. Good urine output. Vital signs are stable. General: The patient appeared well nourished and normally developed. HEENT: Head exam is unremarkable. Neck is without jugular venous distension. LUNGS: Breath sounds decreased. HEART: Rate and Rhythm are regular. ABDOMEN: Soft, nontender. EXTREMITITES: No edema. Objective - Vital Signs Vital signs: Vital Signs Temp 97.7 F 04/01/20 08:49 Pulse 50 L 04/01/20 08:49 Resp 16 04/01/20 08:49 BP 129/65 04/01/20 08:49 Pulse Ox 95 04/01/20 08:49 Intake & Output 03/31/20 04/01/20 04/01/20 18:59 06:59 18:59 Intake Total 700 50 Output Total 1100 Balance 700 -1050 Intake: IV 700 50 Output: Urine 1100 Estimated Blood Loss 0 Other: Voiding Method Toilet Toilet Toilet # Voids 1 1 - Labs CBC & Chem 7: 03/31/20 09:30 04/01/20 08:48 Labs: Abnormal Lab Results - Last 24 Hours (Table) 03/31/20 03/31/20 04/01/20 Range/Units 09:30 09:30 08:48 RBC 3.84 L (4.30-5.90) m/uL Hgb 11.6 L (13.0-17.5) gm/dL Hct 34.7 L (39.0-53.0) % Plt Count 116 L (150-450) k/uL Sodium 136 L (137-145) mmol/L BUN 24 H 30 H (9-20) mg/dL Creatinine 1.89 H 1.56 H (0.66-1.25) mg/dL Glucose 111 H 108 H (74-99) mg/dL Assessment and Plan Plan: Assessment: 1. Acute kidney injury mostly prerenal improving with IV hydration. Also component of obstructive uropathy. Creatinine was 2.37 on admission and is 1.56 today. UA fairly benign. 2. Left-sided hydronephrosis with kidney stone. Urology following. Status post left ureteroscopy with left double-J catheter placement. 3. Chronic kidney disease. Need to establish baseline renal function. Creatinine in 2017 was 0.78. 4. History of renal cell cancer status post cryoablation. 5. Hypertension with chronic kidney disease. Stable. 6. Kidney cysts. 7. Chronic systolic CHF with ejection fraction of 40-45%. Plan: Off IV fluids. Encouraged oral intake. Continue to monitor renal function and urine output. Patient will need to follow up outpatient to establish CKD care.
--- NOTE | 2020-04-01 14:43 | P.DS ---
Providers Date of admission: 03/30/20 13:21 Expected date of discharge: 04/01/20 Attending physician: Estiven Wick Consults: 03/28/20 17:35 Consult Physician Routine Consulting Provider: Breanne Curry Consult Reason/Comments: arf Do you want consulting provider notified?: Yes 03/30/20 10:57 Consult Physician Stat Consulting Provider: Edmar Bose Consult Reason/Comments: hydronephrosis Do you want consulting provider notified?: Yes Primary care physician: [facility] Hospital Course: Final diagnosis Chest pain possible unstable angina. Myocardial infarction ruled out Increased creatinine with possible acute renal failure, possibly postobstructive Left hydronephrosis with left nephrolithiasis Splenomegaly Mild thrombocytopenia Increased random blood sugar Chronic obstructive pulmonary disease history History of cerebrovascular accident and TIA Hypertension Hyperlipidemia history of myocardial infarction History of coronary artery disease with coronary artery bypass graft History of carotid endarterectomy, bilateral Anxiety, bipolar history of nicotine dependence Obesity with a body mass index of 33 Discharge disposition Patient is being discharged in a stable condition with guarded prognosis to home. Patient will follow-up with the [facility] in the outpatient setting upon discharge. Patient will also follow-up with Dr. Burger urology. Total time taken is greater than 35 minutes. History of present illness This is a 64-year-old male who was recently admitted with chest pain with renal failure and is being closely monitored. Patient was slated to have cardiac catheterization at the [facility] and was seen by cardiology here and underwent 2-D echo showing overall left ventricular systolic function is mild to moderately impaired with an EF between 40 and 45% with some mild mitral and tricuspid regurgitation present along with mild pulmonary hypertension present. Patient will continue with current medications as they have been adjusted and will follow-up with cardiology in the outpatient setting. Patient was seen and evaluated by nephrology along with urology for left-sided hydronephrosis with left nephrolithiasis and underwent ureteroscopy with lithotripsy and has a double-J catheter upon discharge. Patient will follow-up with urology within the next 10 days to 2 weeks in the clinic. Patient was also noted to have a sto ne in the right that was nonobstructive. Patient's creatinine is trending down and was provided prescriptions to have repeat labs in a few days to monitor kidney functions closely. Patient states he is feeling much better and would like to go home today. Currently no reports of chest pain, shortness of breath, or palpitations. Patient is afebrile. Mild nausea with no vomiting and patient is tolerating diet. Patient will be discharged home today. On exam vital signs are stable. Temp is 97.7F, pulse is 50, respirations are 16, blood pressure is 129/65, oxygen saturation is 95% on room air. Cardio S1, S2 are muffled. Respiratory system shows diminished breath sounds at the bases with no wheezing or rhonchi noted. Abdomen is soft and and nontender. Nervous system shows no focal deficits. Please refer to medication reconciliation sheet for a list of medications. Patient Condition at Discharge: Fair Plan - Discharge Summary Discharge Rx Participant: No New Discharge Prescriptions: New carvediloL [Coreg*] 25 mg PO BID-W/MEALS 30 Days #120 tab Isosorbide Mononitrate ER [Imdur] 30 mg PO DAILY 30 Days #30 tab.er.24h HYDROcodone/APAP 5-325MG [[place] 5-325] 1 each PO Q6HR PRN 10 Days #10 tab PRN Reason: Pain amLODIPine [Norvasc] 5 mg PO DAILY 30 Days #30 tab Continue Nitroglycerin Sl Tabs [Nitrostat] 0.4 mg SUBLINGUAL Q5M PRN PRN Reason: Chest Pain Aspirin 81 mg PO DAILY Sertraline HCl [Zoloft] 100 mg PO BID Clopidogrel [Plavix] 75 mg PO DAILY Rosuvastatin Calcium [Crestor] 40 mg PO DAILY Discontinued Losartan Potassium 100 mg PO DAILY Carvedilol [Coreg] 12.5 mg PO BID Discharge Medication List Aspirin 81 mg PO DAILY 04/04/16 [History] Clopidogrel [Plavix] 75 mg PO DAILY 04/04/16 [History] Nitroglycerin Sl Tabs [Nitrostat] 0.4 mg SUBLINGUAL Q5M PRN 04/04/16 [History] Sertraline HCl [Zoloft] 100 mg PO BID 04/04/16 [History] Rosuvastatin Calcium [Crestor] 40 mg PO DAILY 03/28/20 [History] HYDROcodone/APAP 5-325MG [[place] 5-325] 1 each PO Q6HR PRN 10 Days #10 tab 04/01/20 [Rx] Isosorbide Mononitrate ER [Imdur] 30 mg PO DAILY 30 Days #30 tab.er.24h 04/01/20 [Rx] amLODIPine [Norvasc] 5 mg PO DAILY 30 Days #30 tab 04/01/20 [Rx] carvediloL [Coreg*] 25 mg PO BID-W/MEALS 30 Days #120 tab 04/01/20 [Rx] Follow up Appointment(s)/Referral(s): Andres Burger MD [STAFF PHYSICIAN] - 04/09/20 2:00 pm [facility],Clinic [Primary Care Provider] - 04/10/20 8:30 am Ambulatory/Diagnostic Orders: Basic Metabolic Panel [LAB.AMB] Time Frame: 2 Days, Location: None Selected Patient Instructions/Handouts: Hydronephrosis (DC), Noncardiac Chest Pain (DC) Activity/Diet/Wound Care/Special Instructions: Activity Limited until follow-up Follow-up with primary care provider upon discharge Follow-up with urology in the outpatient setting Continue current diet Repeat labs in 2-3 days Discharge Disposition: HOME SELF-CARE
--- NOTE | 2020-04-03 09:24 | CDI ---
Documentation Clarification Form Date: 04/03/20 From: Kellen Araujo CCS Phone: If you have a question about this query, please contact Mary Carmen Sanchez, Case Packer at [phone] between 8am and 5pm. Admit Date: 03/30/20 Discharge Date:04/01/20 Patient Name: Ke Bee Visit Number: [id number] ATTENTION: The Clinical Documentation Specialists (CDI) and [facility] Coding Staff appreciate your assistance in clarifying documentation. Please respond to the clarification below the line at the bottom and electronically sign. The CDI & [facility] Coding staff will review the response and follow-up if needed. Please note: Queries are made part of the Legal Health Record. If you have any questions, please contact the author of this message via ITS. Dear Dr. Wick, CKD is documented in the 03/29 Consult, PNs. History/Risk Factors: HTN, CAD, Obesity, COPD, Valve disease Clinical Indicators: Acute and chronic renal failure Current BUN: 30, 29, 21 CR: 2.37, 2.06, 1.87 GFR: 28, 33, 37 Treatment: Monitor, Outpatient follow up Consult: E[place] In order to capture the severity of condition, please clarify the stage of the CKD, if known: CKD Stage 1 (GFR > 90) CKD Stage 2 (GFR 60-89) CKD Stage 3a (GFR 45-59) CKD Stage 3b (GFR 30-44) CKD Stage 4 (GFR 15-29) CKD Stage 5 (GFR <15) ESRD Other, please specify Unable to determine CKD Stage 3b (GFR 30-44) VYD
== END 2020-04-01 12:30 | disposition home or self-care (01) | DRG 660 ==
LOC: EC 13:26 → 1SOBS 14:52 → OBSVTOIN 03-30 13:21
PROVIDERS: ADMIT Hospitalist; ATTEND Hospitalist
PROC: 0T778DZ Dilation of Left Ureter with Intraluminal Device, Via Natural or Artificial Opening Endoscopic (ICD-10-PCS; principal; 2020-03-31 09:00)
PROC: 0TC78ZZ Extirpation of Matter from Left Ureter, Via Natural or Artificial Opening Endoscopic (ICD-10-PCS; 2020-03-31 09:00)
DX: N13.2 Hydronephrosis with renal and ureteral calculous obstruction (principal); I50.22 Chronic systolic (congestive) heart failure; I13.0 Hypertensive heart and chronic kidney disease with heart failure and stage 1 through stage 4 chronic kidney disease, or unspecified chronic kidney disease; I25.110 Atherosclerotic heart disease of native coronary artery with unstable angina pectoris; N17.9 Acute kidney failure, unspecified; D69.6 Thrombocytopenia, unspecified; I27.22 Pulmonary hypertension due to left heart disease; I73.9 Peripheral vascular disease, unspecified; J44.9 Chronic obstructive pulmonary disease, unspecified; F31.9 Bipolar disorder, unspecified; F41.9 Anxiety disorder, unspecified; N18.32 Chronic kidney disease, stage 3b; E66.9 Obesity, unspecified; E78.5 Hyperlipidemia, unspecified; M19.90 Unspecified osteoarthritis, unspecified site; N28.1 Cyst of kidney, acquired; R16.1 Splenomegaly, not elsewhere classified; I08.1 Rheumatic disorders of both mitral and tricuspid valves; I25.2 Old myocardial infarction; Z79.82 Long term (current) use of aspirin; Z79.02 Long term (current) use of antithrombotics/antiplatelets; Z79.899 Other long term (current) drug therapy; Z86.73 Personal history of transient ischemic attack (TIA), and cerebral infarction without residual deficits; Z95.1 Presence of aortocoronary bypass graft; Z85.528 Personal history of other malignant neoplasm of kidney; Z98.890 Other specified postprocedural states; Z87.891 Personal history of nicotine dependence; Z68.33 Body mass index [BMI] 33.0-33.9, adult; Z87.442 Personal history of urinary calculi; Z80.9 Family history of malignant neoplasm, unspecified
CPT/HCPCS: 36415; 71046; 74176; 74420; 76770; 80048; 80053; 80061; 81001; 82365; 83735; 84484; 85025; 85610; 85730; 93005; 93306; 96361; 96374; 99285

== ENCOUNTER → 2020-04-03 | Outpatient (CLI) | payer MEDICARE ==
[2020-04-03 16:31] LABS: African American GFR (CKD) 73.1 (60.0-200.0); Anion Gap 8.1 mmol/L (4.00-12.00); BUN/Creat Ratio 18.33 Ratio (12.00-20.00); Calcium 9.3 mg/dL (8.7-10.3); Carbon Dioxide 28.9 mmol/L (21.6-31.8); Non-African American GFR(CKD) 63.1 (60.0-200.0); Potassium 4.4 mmol/L (3.5-5.5)
== END | disposition home or self-care (01) ==
LOC: LABWHC1 09:09
PROVIDERS: ATTEND Registered Nurse
DX: R79.89 Other specified abnormal findings of blood chemistry (principal)
CPT/HCPCS: 36415; 80048

== ENCOUNTER → 2020-05-18 | Outpatient (CLI) | payer MEDICARE ==
--- NOTE | 2020-05-18 14:51 | US ---
EXAMINATION TYPE: US kidneys/renal and bladder DATE OF EXAM: 05/18/2020 COMPARISON: CT 03/30/2020 CLINICAL HISTORY: 65-year-old male N20.1 Ureteral stone N13.2 Hydronephrosis. Prior cryoablation on r ight kidney per patient; lithotripsy on left, renal stone recently. TECHNIQUE: Multiple sonographic images of the kidneys and bladder are obtained. FINDINGS: EXAM MEASUREMENTS: Right Kidney: 11.7 x 6.9 x 5.2 cm Left Kidney: 11.4 x 6.6 x 5.5 cm Post Void Residual Volume: 2.9 mL Right Kidney: No hydronephrosis. Cortical interruption along the upper pole may correspond to the pat ient's prior surgical history. Left Kidney: multiple renal cysts seen with largest at the lower pole measuring 2.5 x 2.9 x 1.9cm. No hydronephrosis. Bladder: Partial distention limits evaluation. Bilateral Jets seen: yes Normal Post Void Residual: yes Incidental echogenic appearance to the liver IMPRESSION: 1. Multiple left-sided renal cysts measuring up to 2.9 cm. 2. Cortical defect along the upper pole of the right kidney probably corresponds to the patient's sit e of prior cryoablation. 3. No hydronephrosis. 4. No sonographic evidence for urinary retention. 5. Incidental hepatic steatosis.
== END | disposition home or self-care (01) ==
LOC: RADUSWWP 11:00
PROVIDERS: ATTEND Urology
DX: N28.1 Cyst of kidney, acquired (principal)
CPT/HCPCS: 76770

== ENCOUNTER 2020-12-23 20:30 | Observation (INO) | payer MEDICARE ==
[2020-12-23] MEDS ORDERED: SODIUM CHLORIDE 0.9% 500 ML 500 ML IV ONE (20:49)
[2020-12-23 21:07] LABS: Basophils # (A) 0.1 k/uL (0-0.2); Basophils % (A) 1 %; Eosinophils # (A) 0.2 k/uL (0-0.7); Eosinophils % (A) 3 %; HCT 42.3 % (39.0-53.0); HGB 14.6 gm/dL (13.0-17.5); Lymphocytes # (A) 1.8 k/uL (1.0-4.8); Lymphocytes % (A) 23 %; MCH 31.2 pg (25.0-35.0); MCHC 34.5 g/dL (31.0-37.0); MCV 90.6 fL (80.0-100.0); Mean Platelet Volume 7.6; Monocytes # (A) 0.4 k/uL (0-1.0); Monocytes % (A) 5 %; Neutrophils # (A) 5.2 k/uL (1.3-7.7); Neutrophils % (A) 67 %; Platelet Count 148 k/uL (150-450); RBC 4.67 m/uL (4.30-5.90); WBC 7.8 k/uL (3.8-10.6)
--- NOTE | 2020-12-23 21:07 | ED ---
Dizziness HPI - General Stated Complaint: Weakness Time Seen by Provider: 12/23/20 20:33 Source: patient, EMS Mode of arrival: EMS Limitations: no limitations - History of Present Illness Initial Comments: Is a 65-year-old male with a history of CAD status post 2 coronary artery b ypasses, hypertension, hyperlipidemia who presents emergent department for an episode of lightheadedness, nausea, and vomiting. The patient states that he was at a friend's house when he had the urge that he needed to have diarrhea. He was on his way to the bathroom he said that he became very lightheaded and nauseated. He stated that he sat down to have the bowel movement and did have a little bit of diarrhea and at that time also had some nausea with an episode of vomiting. He states he became very lightheaded however did not actually pass out. He denied have any associated chest pain or shortness of breath at the time. No abdominal pain. No blood in the stool but the patient noted. He states that an ambulance was called. He was given 400 mL of normal saline. He currently feels improved however states he still feels a little bit nauseated and also has some generalized weakness. States that since his in July he has not been having the best appetite and states he has not been eating and drinking quite as much. States he has not eaten or drank much today. He st ates he did have one beer. - Related Data Home Medications Medication Instructions Recorded Confirmed Aspirin 81 mg PO DAILY 04/04/16 12/23/20 Clopidogrel [Plavix] 75 mg PO DAILY 04/04/16 12/23/20 Nitroglycerin Sl Tabs [Nitrostat] 0.4 mg SUBLINGUAL Q5M PRN 04/04/16 12/23/20 Sertraline HCl [Zoloft] 100 mg PO BID 04/04/16 12/23/20 Rosuvastatin Calcium [Crestor] 40 mg PO DAILY 03/28/20 12/23/20 Folic Acid 0.8 mg PO DAILY 12/23/20 12/23/20 Previous Rx's Medication Instructions Recorded Isosorbide Mononitrate ER [Imdur] 30 mg PO DAILY 30 Days #30 04/01/20 tab.er.24h amLODIPine [Norvasc] 5 mg PO DAILY 30 Days #30 tab 04/01/20 carvediloL [Coreg*] 25 mg PO BID-W/MEALS 30 Days #120 04/01/20 tab Allergies Allergy/AdvReac Type Severity Reaction Status Date / Time No Known Allergies Allergy Verified 12/23/20 21:52 Review of Systems ROS Statement: Those systems with pertinent positive or pertinent negative responses have been documented in the HPI. ROS Other: All systems not noted in ROS Statement are negative. Past Medical History Past Medical History: Cancer, Chest Pain / Angina, COPD, CVA/TIA, Hyperlipidemia, Hypertension, Myocardial Infarction ([place]), Osteoarthritis (OA) Additional Past Medical History / Comment(s): generalized fatigue, unable to walk distance,SOB, CVA-several yrs. ago-post carotid endarterectomy-no residual effects Last Myocardial Infarction Date:: 2012 History of Any Multi-Drug Resistant Organisms: None Reported Past Surgical History: Coronary Bypass/CABG, Heart Catheterization Additional Past Surgical History / Comment(s): earlene. carotid endarterectomy, triple bypass 2012, diaphragm repair post CABG, fem-fem. bypass, Cryoablation of right renal tumor- approximately 2009 at [facility] Past Anesthesia/Blood Transfusion Reactions: No Reported Reaction Past Psychological History: Anxiety, Bipolar Smoking Status: Current every day smoker Past Alcohol Use History: Occasional Past Drug Use History: None Reported - Past Family History Mother Family Medical History: Cancer General Exam - General Exam Comments Initial Comments: Constitutional: Awake alert Appears comfortable Head: Normocephalic atraumatic Eyes: no conjunctival injection No scleral icterus EOMI Neck: No JVD Supple Heart: Regular rate rhythm normal S1-S2 no murmurs Lungs: Clear to auscultation bilaterally No wheezing No rales Abdomen: Soft nondistended nontender Extremities: Non edematous DP pulses intact Radial pulses intact Neuro: A&Ox3 No focal neurologic deficits Psych: Appropriate mood and affect Limitations: no limitations Course Vital Signs 12/23/20 12/23/20 12/23/20 20:43 20:44 21:00 Temperature 97.7 F Pulse Rate 71 68 67 Respiratory 18 18 16 Rate Blood Pressure 104/79 104/79 O2 Sat by Pulse 91 L 87 L Oximetry 12/23/20 12/23/20 21:30 22:00 Temperature Pulse Rate 68 66 Respiratory 18 18 Rate Blood Pressure 115/62 108/67 O2 Sat by Pulse 88 L 93 L Oximetry EKG Findings - EKG Comments: EKG Findings:: EKG showing normal sinus rhythm with a rate of 68. No abnormal ST segment changes or T-wave inversions. QTC 510. Other intervals normal. No ectopy. Medical Decision Making - Medical Decision Making This is a 65-year-old male presents emergency department for presyncopal event with nausea and vomiting. The patient was found to be quite diaphoretic and pale when EMS arrived. On arrival here he stated that he felt improved however was still nauseated and some generalized weakness. He was given Zofran with improvement in his nausea. He is given some fluids and stated they did feel improved however still had some generalized weakness. I did stand the patient up and active blood pressure and the stats were negative troponin returned came back at 0.49. Patient does have significant heart disease and with this presyncopal episode of feel that he should be monitored in the hospital and have further workup performed. Dr. Wick accepts the patient for admission. - Lab Data Result diagrams: 12/23/20 21:02 12/23/20 21:02 Lab Results 12/23/20 12/23/20 12/23/20 Range/Units 21:02 21:02 21:02 WBC 7.8 (3.8-10.6) k/uL RBC 4.67 (4.30-5.90) m/uL Hgb 14.6 (13.0-17.5) gm/dL Hct 42.3 (39.0-53.0) % MCV 90.6 (80.0-100.0) fL MCH 31.2 (25.0-35.0) pg MCHC 34.5 (31.0-37.0) g/dL RDW 15.0 (11.5-15.5) % Plt Count 148 L (150-450) k/uL MPV 7.6 Neutrophils % 67 % Lymphocytes % 23 % Monocytes % 5 % Eosinophils % 3 % Basophils % 1 % Neutrophils # 5.2 (1.3-7.7) k/uL Lymphocytes # 1.8 (1.0-4.8) k/uL Monocytes # 0.4 (0-1.0) k/uL Eosinophils # 0.2 (0-0.7) k/uL Basophils # 0.1 (0-0.2) k/uL PT 10.5 (9.0-12.0) sec INR 1.0 (<1.2) APTT 20.8 L (22.0-30.0) sec Sodium 137 (137-145) mmol/L Potassium 4.2 (3.5-5.1) mmol/L Chloride 102 (98-107) mmol/L Carbon Dioxide 24 (22-30) mmol/L Anion Gap 11 mmol/L BUN 27 H (9-20) mg/dL Creatinine 1.15 (0.66-1.25) mg/dL Est GFR (CKD-EPI)AfAm 77 (>60 ml/min/1.73 sqM) Est GFR (CKD-EPI)NonAf 66 (>60 ml/min/1.73 sqM) Glucose 128 H (74-99) mg/dL Calcium 9.2 (8.4-10.2) mg/dL Total Bilirubin 0.8 (0.2-1.3) mg/dL AST 42 (17-59) U/L ALT 35 (4-49) U/L Alkaline Phosphatase 63 (38-126) U/L Troponin I (0.000-0.034) ng/mL NT-Pro-B Natriuret Pep pg/mL Total Protein 7.5 (6.3-8.2) g/dL Albumin 4.6 (3.5-5.0) g/dL 12/23/20 12/23/20 Range/Units 21:02 21:02 WBC (3.8-10.6) k/uL RBC (4.30-5.90) m/uL Hgb (13.0-17.5) gm/dL Hct (39.0-53.0) % MCV (80.0-100.0) fL MCH (25.0-35.0) pg MCHC (31.0-37.0) g/dL RDW (11.5-15.5) % Plt Count (150-450) k/uL MPV Neutrophils % % Lymphocytes % % Monocytes % % Eosinophils % % Basophils % % Neutrophils # (1.3-7.7) k/uL Lymphocytes # (1.0-4.8) k/uL Monocytes # (0-1.0) k/uL Eosinophils # (0-0.7) k/uL Basophils # (0-0.2) k/uL PT (9.0-12.0) sec INR (<1.2) APTT (22.0-30.0) sec Sodium (137-145) mmol/L Potassium (3.5-5.1) mmol/L Chloride (98-107) mmol/L Carbon Dioxide (22-30) mmol/L Anion Gap mmol/L BUN (9-20) mg/dL Creatinine (0.66-1.25) mg/dL Est GFR (CKD-EPI)AfAm (>60 ml/min/1.73 sqM) Est GFR (CKD-EPI)NonAf (>60 ml/min/1.73 sqM) Glucose (74-99) mg/dL Calcium (8.4-10.2) mg/dL Total Bilirubin (0.2-1.3) mg/dL AST (17-59) U/L ALT (4-49) U/L Alkaline Phosphatase (38-126) U/L Troponin I 0.049 H* (0.000-0.034) ng/mL NT-Pro-B Natriuret Pep 2760 pg/mL Total Protein (6.3-8.2) g/dL Albumin (3.5-5.0) g/dL Disposition Clinical Impression: Elevated troponin, Pre-syncope Disposition: ADMITTED IP TO THIS HOSP Condition: Stable Referrals: [facility],Clinic [Primary Care Provider] - 1-2 days
[2020-12-23 21:16] LABS: Albumin 4.6 g/dL (3.5-5.0); Calcium 9.2 mg/dL (8.4-10.2); Total Bilirubin 0.8 mg/dL (0.2-1.3); Total Protein 7.5 g/dL (6.3-8.2)
[2020-12-23 21:19] LABS: Potassium 4.2 mmol/L (3.5-5.1)
[2020-12-23 21:22] LABS: Prothrombin Time 10.5 sec (9.0-12.0)
[2020-12-23] MEDS ORDERED: ONDANSETRON 4 MG/2 ML VIAL IVP STA (21:23)
[2020-12-23 21:48] LABS: Partial Thromboplastin Time 20.8 sec (22.0-30.0)
--- NOTE | 2020-12-23 21:48 | XR ---
EXAMINATION TYPE: XR chest 1V portable DATE OF EXAM: 12/23/2020 CLINICAL HISTORY: Fall. TECHNIQUE: Portable frontal view of the chest. COMPARISON: 03/28/2020 FINDINGS: Elevation of the left hemidiaphragm. Sternotomy wires. Mild cardiomegaly. Pulmonary vascula ture is normal. There is no focal air space opacity. No pleural effusion. No pneumothorax seen. No a cute displaced osseous fracture. IMPRESSION: No acute cardiopulmonary process.
[2020-12-23] MEDS ORDERED: NALOXONE 0.4 MG/ML 1 ML VIAL IV PRN (22:23)
[2020-12-23] MEDS ORDERED: ASPIRIN 81 MG PO STA (23:43)
[2020-12-24] MEDS: SODIUM CHLORIDE 0.9% 1,000 ML IV SCH ×2 (01:26→12:27)
[2020-12-24] MEDS: ATORVASTATIN 80 MG TAB PO SCH (10:39)
[2020-12-24] MEDS: ISOSORBIDE MONONITRATE ER 30 MG TAB.ER.24H PO SCH (10:39)
[2020-12-24] MEDS: CLOPIDOGREL 75 MG TAB PO SCH (10:39)
[2020-12-24] MEDS: ASPIRIN 81 MG PO SCH (10:39)
[2020-12-24] MEDS: amLODIPine 5 MG TAB PO SCH (10:39)
[2020-12-24] MEDS: carvediloL 12.5 MG TAB PO SCH ×2 (10:39→17:48)
--- NOTE | 2020-12-24 11:35 | P.CRDCN ---
History of Present Illness History of present illness: HISTORY OF PRESENTING ILLNESS This is a pleasant 65-year-old male past medical history significant for hypertenseion, dyslipidemia, severe peripheral disease, coronary artery disease s/p 3 vessel CABG (BENITEZ to LAD and SVG to the PDA and diagonal) in 2011 and in June 2016 he underwent redo surgery with Dr. Harmon received a left radial to the obtuse marginal branch and SVG to the PDA. He follows at the [facility] and [facility]ology office in [place]. We have been asked to see in consultation for presyncope and elevated troponin x 1. Patient presents to the emergent department for an episode of lightheadedness, nausea, and vomiting. Patient states he was at his friends house yesterday evening, around 7pm, He stated that he went to have the bowel movement, he had to sit down for about 10 minutes and had diarrhea. Few minutes later he had to return to the bathroom and was having diarrhea for about 15 minutes. When walking out of the bathroom he felt as if his legs were "wobbling" he felt very unsteady, he proceeded to experience nausea, one episode of emesis. He was also lightheaded, diaphoretic, felt as if he may pass out. He did not lose consciousness. His friend called EMS and he was taken to the emergency department. He states his friends home was very hot, had no air conditioning. He states that afternoon he did eat chicken wings, coffee and had half of a beer. No further alcohol after this. He states his symptoms resolved after he received IV fluids and was in the air conditioning. He last saw his ticket speculator at [facility] about 8 months ago, no further changes to his meds, no cardiac workup at that time, and was told everything was well in terms of his heart. He states he has not had any further stents or cardiac catheterizations after 2016. He states that since his in July he has not been having the best diet, states he has not been eating and drinking quite as much and not healthy foods. He also started smoking again since July 2020 and is now smoking 1 PPD. He does occasionally drink alcohol, did have 1 beer yesterday. He denies chest pain, palpitations. He does endorse increased shortness of breath lately and he attributed this to his increased cigarette smoking. He denies symptoms of orthopnea or PND, or lower extremity edema. Patient did present to the hospital in end of March 2020 with and episode of chest pain, also left flank pain and hydronephrosis. Acute coronary syndrome was ruled out. He did have an echocardiogram which showed a mild to moderately impaired EF 40-45%, with segmental wall motion abnormality and mild mitral regurgitation and tricuspid regurgitation. Patient underwetn cystoscopy with left ureteroscopy, lithotripsy and placement of left double j catheter with urology. Patient was stable to be discharged from a cardiology perspective and follow up with his ticket speculator DIAGNOSTICS EKG reveals sinus rhythm HR 68, short MD, T wave inversion in lead III, no significant ST-T wave abnormalities. Prior EKG appear similar Telemetry tracings indicate sinus mechanism HR 55-70s Most recent echocardiogram 03/2020- EF 40-45%, basal lateral, basal inferior, basal inferoseptal, mid inferior wall hypokinetic, mild MR, mild TR Chest xray No acute cardiopulmonary process. Laboratory reviewed, CBC unremarkable, Troponin 0.04, 0.02, 0.02, Sodium 137, K 4.2, BUN 27, sCr 1.15 Current cardiac medications include Coreg 25mg BID, amlodipine 5mg daily, Crestor 40mg daily, PRN Sublingual nitro, Imdur 30mg daily, Plavix 75mg daily, aspirin 81mg daily REVIEW OF SYSTEMS At the time of my exam: CONSTITUTIONAL: Denies fever or chills. CARDIOVASCULAR: +shortness of breath Denies chest pain, shortness of breath, orthopnea, PND or palpitations. RESPIRATORY: Denies cough. GASTROINTESTINAL: +Nausea, +vomiting, +diarrhea Denies abdominal pain, constipation MUSCULOSKELETAL: Denies myalgias. NEUROLOGIC: Denies numbness, tingling, headacbe or weakness. ENDOCRINE: Denies fatigue, weight change, polydipsia or polyurina. GENITOURINARY: Denies burning, hematuria or urgency with micturation. HEMATOLOGIC: Denies history of anemia or bleeding. PHYSICAL EXAMINATION Blood pressure 152/78 heart rate 65 afebrile and maintaining oxygen saturation 94% no room air CONSTITUTIONAL: No apparent distress. HEENT: Head is normocephalic. Pupils are equal, round. Sclerae anicteric. Mucous membranes of the mouth are moist. No JVD. No carotid bruit. CHEST EXAMINATION: Lungs are clear to auscultation. No chest wall tenderness is noted on palpation or with deep breathing. HEART EXAMINATION: Regular rate and rhythm. S1, S2 heard. Systolic murmur at apex No gallops or rub. ABDOMEN: Soft, nontender. Positive bowel sounds. EXTREMITIES: 2+ peripheral pulses, no lower extremity edema and no calf tenderness. NEUROLOGIC EXAMINATION: Patient is awake, alert and oriented x3. ASSESSMENT Elevated troponin x 1, not indicative of acute coronary syndrome, patient without chest pain Presyncope Diarrhea Nausea, Vomiting History of hypertension Dyslipidemia Severe peripheral vascular disease History of ischemic cardiomyopathy EF 40-45% Chronic systolic heart failure History of Coronary artery disease s/p 3 vessel CABG (BENITEZ to LAD and SVG to the PDA and diagonal) in 2011 and in June 2016 he underwent redo surgery with Dr. Harmon received a left radial to the obtuse marginal branch and SVG to the PDA. Current every day smoker PLAN Orthostatics negative We will obtain 2D echocardiogram Continue home cardiac medications Further recommendations based on clinical course Nurse Practitioner note has been reviewed, I agree with a documented findings and plan of care. Patient was seen and examined. Past Medical History Past Medical History: Cancer, Chest Pain / Angina, COPD, CVA/TIA, Hyperlipidemia, Hypertension, Myocardial Infarction ([place]), Osteoarthritis (OA) Additional Past Medical History / Comment(s): generalized fatigue, unable to walk distance,SOB, CVA-several yrs. ago-post carotid endarterectomy-no residual effects Last Myocardial Infarction Date:: 2012 History of Any Multi-Drug Resistant Organisms: None Reported Past Surgical History: Coronary Bypass/CABG, Heart Catheterization Additional Past Surgical History / Comment(s): earlene. carotid endarterectomy, triple bypass 2012, diaphragm repair post CABG, fem-fem. bypass, Cryoablation of right renal tumor- approximately 2009 at [facility] Past Anesthesia/Blood Transfusion Reactions: No Reported Reaction Past Psychological History: Anxiety, Bipolar Smoking Status: Current every day smoker Past Alcohol Use History: Occasional Additional Past Alcohol Use History / Comment(s): quit smoking 2005, smoked for 40 yrs. started up again in July after his spouse Past Drug Use History: None Reported - Past Family History Mother Family Medical History: Cancer Medications and Allergies Home Medications Medication Instructions Recorded Confirmed Type RX: Aspirin 81 mg PO DAILY 04/04/16 12/23/20 History RX: Clopidogrel [Plavix] 75 mg PO DAILY 04/04/16 12/23/20 History RX: Nitroglycerin Sl Tabs 0.4 mg SUBLINGUAL Q5M PRN 04/04/16 12/23/20 History [Nitrostat] RX: Sertraline HCl [Zoloft] 100 mg PO BID 04/04/16 12/23/20 History RX: Rosuvastatin Calcium [Crestor] 40 mg PO DAILY 03/28/20 12/23/20 History RX: Isosorbide Mononitrate ER 30 mg PO DAILY 30 Days #30 04/01/20 12/23/20 Rx [Imdur] tab.er.24h RX: amLODIPine [Norvasc] 5 mg PO DAILY 30 Days #30 tab 04/01/20 12/23/20 Rx RX: carvediloL [Coreg*] 25 mg PO BID-W/MEALS 30 Days #120 04/01/20 12/23/20 Rx tab RX: Folic Acid 0.8 mg PO DAILY 12/23/20 12/23/20 History Allergies Allergy/AdvReac Type Severity Reaction Status Date / Time No Known Allergies Allergy Verified 12/23/20 21:52 Physical Exam Vitals: Vital Signs Temp Pulse Pulse Resp BP BP Pulse Ox 12/24/20 04:00 97.8 F 64 17 146/69 94 L 12/24/20 02:00 72 17 12/24/20 00:00 98.3 F 75 17 151/74 90 L 12/23/20 23:52 74 20 164/89 93 L 12/23/20 22:00 66 18 108/67 93 L 12/23/20 21:30 68 18 115/62 88 L 12/23/20 21:00 67 16 104/79 87 L 12/23/20 20:44 97.7 F 68 18 104/79 91 L 12/23/20 20:43 71 18 Intake and Output 12/23/20 12/24/20 12/24/20 22:59 06:59 14:59 Intake Total 510 Balance 510 Intake: Intake, IV Titration 150 Amount Sodium Chloride 0.9% 1, 150 000 ml @ 75 mls/hr IV . [id number] REPLACED BY [facility] Rx#:[id number] Oral 360 Other: Voiding Method Urinal Weight 107.955 kg 103.9 kg Results 12/23/20 21:02 12/23/20 21:02 Cardiac Enzymes 08/12/23/20 12/24/20 Range/Units 21:02 21:02 00:17 AST 42 (17-59) U/L Troponin I 0.049 H* 0.029 (0.000-0.034) ng/mL 12/24/20 Range/Units 04:58 AST (17-59) U/L Troponin I 0.024 (0.000-0.034) ng/mL Coagulation 12/23/20 Range/Units 21:02 PT 10.5 (9.0-12.0) sec APTT 20.8 L (22.0-30.0) sec CBC 12/23/20 Range/Units 21:02 WBC 7.8 (3.8-10.6) k/uL RBC 4.67 (4.30-5.90) m/uL Hgb 14.6 (13.0-17.5) gm/dL Hct 42.3 (39.0-53.0) % Plt Count 148 L (150-450) k/uL Comprehensive Metabolic Panel 12/23/20 Range/Units 21:02 Sodium 137 (137-145) mmol/L Potassium 4.2 (3.5-5.1) mmol/L Chloride 102 (98-107) mmol/L Carbon Dioxide 24 (22-30) mmol/L BUN 27 H (9-20) mg/dL Creatinine 1.15 (0.66-1.25) mg/dL Glucose 128 H (74-99) mg/dL Calcium 9.2 (8.4-10.2) mg/dL AST 42 (17-59) U/L ALT 35 (4-49) U/L Alkaline Phosphatase 63 (38-126) U/L Total Protein 7.5 (6.3-8.2) g/dL Albumin 4.6 (3.5-5.0) g/dL Current Medications Generic Name Dose Route Start Last Admin Trade Name Freq PRN Reason Stop Dose Admin Sodium Chloride 1,000 mls @ 75 mls/hr 12/23/20 22:30 12/24/20 01:26 Saline 0.9% IV Not Given .[id number] TERESA Naloxone HCl 0.2 mg 12/23/20 22:23 Naloxone 0.4 Mg/Ml 1 Ml Vial IV Q2M PRN Opioid Reversal Intake and Output 0812/24/20 12/24/20 22:59 06:59 14:59 Intake Total 510 Balance 510 Intake: Intake, IV Titration 150 Amount Sodium Chloride 0.9% 1, 150 000 ml @ 75 mls/hr IV . [id number] REPLACED BY [facility] Rx#:[id number] Oral 360 Other: Voiding Method Urinal Weight 107.955 kg 103.9 kg 12/23/20 21:02 12/23/20 21:02
--- NOTE | 2020-12-24 12:59 | ECHOF ---
Referral Reason:LV function MEASUREMENTS -------- HEIGHT: 180.3 cm WEIGHT: 103.9 kg BP: RVIDd: 2.5 cm (< 3.3) IVSd: 1.7 cm (0.6 - 1.1) LVIDd: 5.0 cm (3.9 - 5.3) LVPWd: 1.4 cm (0.6 - 1.1) IVSs: 2.1 cm LVIDs: 4.3 cm LVPWs: 1.4 cm Ao Diam: 3.7 cm (2.0 - 3.7) AV Cusp: 2.2 cm (1.5 - 2.6) LA Diam: 3.9 cm (2.7 - 3.8) MV EXCURSION: 21.866 mm (> 18.000) MV EF SLOPE: 103 mm/s (70 - 150) EPSS: 1.2 cm MV E Que: 0.76 m/s MV DecT: 202 ms MV A Que: 0.67 m/s MV E/A Ratio: 1.13 RAP: 5.00 mmHg RVSP: 13.19 mmHg FINDINGS -------- This was a technically difficult study with suboptimal views. The left ventricular size is normal. There is moderate concentric left ventricular hypertrophy. O verall left ventricular systolic function is mildly impaired with, an EF between 45 - 50 %. The right ventricle is normal in size. The left atrial size is normal. The right atrial size is normal. The aortic valve is trileaflet and appears structurally normal. The mitral valve is normal. There is trace mitral regurgitation. The tricuspid valve appears structurally normal. Trace tricuspid regurgitation present. Right gely tricular systolic pressure is normal at < 35 mmHg. There is no pulmonic regurgitation present. The aortic root size is normal. IVC Not well visulized. There is no pericardial effusion. CONCLUSIONS -------- 1. The left ventricular size is normal. 2. There is moderate concentric left ventricular hypertrophy. 3. Overall left ventricular systolic function is mildly impaired with, an EF between 45 - 50 %. 4. There is trace mitral regurgitation. 5. Trace tricuspid regurgitation present. 6. There is no pericardial effusion. LEAD FRONT END DEVELOPER: Karin Bhandari [facility]
[2020-12-24 21:59] VITALS: RESP 18
--- NOTE | 2020-12-25 00:05 | P.HPIM ---
History of Present Illness H&P Date: 12/24/20 Chief Complaint: Near Syncope Patient is a 65-year-old male with a known history of coronary disease status post CABG in 2012 hypertension, hyperlipidemia, history of [place], cellulitis, history of CVA/TIA, anxiety/bipolar disorder and currently everyday smoker presents to ER with complaints of nausea vomiting and presyncopal episode. Patient states that he was at his friend's house and was having diarrhea. Patient use restroom when came back and he wanted to go back again. After reaching the restroom patient became very lightheaded and nauseated and about to pass out. Patient was seen by his friend and called EMS. Denied any associated chest pain or shortness of breath. No fever no chills. No denies any recent illnesses. Patient states that it is very hot inside the room and he only had window air conditioner at his parents house. Denies any recent illnesses. No travel. No sick contacts at home. Chest x-ray showed no acute cardiopulmonary process EKG showed sinus rhythm with short [place] interval. Laboratory showed BUN 27 creatinine 1.15 Troponin 0 0.049, 0.029, 0.024 and proBNP 2760. Patient was given IV fluid bolus by EMS and is being continued at 75 cc/h. Review of Systems Constitutional: Patient denies any fever or chills . No generalized weakness or weight loss. Abdomen: Patient denied nausea vomiting and diarrhea and abdominal pain. Cardiovascular: Patient denies any chest pain or short of breath no palpitatio ns. Respiratory: patient denied any cough or sputum production. No shortness of breath Neurologic: Patient denied any numbness or tingling headache. Musculoskeletal: Patient denies any complaints of joint swelling or deformity. Skin: Negative Psychiatric: Negative Endocrine: No heat or cold intolerance. No recent weight gain. Genitourinary: No dysuria or hematuria. All other 14 point ROS negative except the above Past Medical History Past Medical History: Cancer, Chest Pain / Angina, COPD, CVA/TIA, Hyperlipidemia, Hypertension, Myocardial Infarction ([place]), Osteoarthritis (OA) Additional Past Medical History / Comment(s): generalized fatigue, unable to walk distance,SOB, CVA-several yrs. ago-post carotid endarterectomy-no residual effects Last Myocardial Infarction Date:: 2012 History of Any Multi-Drug Resistant Organisms: None Reported Past Surgical History: Coronary Bypass/CABG, Heart Catheterization Additional Past Surgical History / Comment(s): earlene. carotid endarterectomy, triple bypass 2012, diaphragm repair post CABG, fem-fem. bypass, Cryoablation of right renal tumor- approximately 2009 at [facility] Past Anesthesia/Blood Transfusion Reactions: No Reported Reaction Past Psychological History: Anxiety, Bipolar Smoking Status: Current every day smoker Past Alcohol Use History: Occasional Additional Past Alcohol Use History / Comment(s): quit smoking 2005, smoked for 40 yrs. started up again in July after his spouse Past Drug Use History: None Reported - Past Family History Mother Family Medical History: Cancer Medications and Allergies Home Medications Medication Instructions Recorded Confirmed Type Aspirin 81 mg PO DAILY 04/04/16 12/23/20 History Clopidogrel [Plavix] 75 mg PO DAILY 04/04/16 12/23/20 History Nitroglycerin Sl Tabs [Nitrostat] 0.4 mg SUBLINGUAL Q5M PRN 04/04/16 12/23/20 History Sertraline HCl [Zoloft] 100 mg PO BID 04/04/16 12/23/20 History Rosuvastatin Calcium [Crestor] 40 mg PO DAILY 03/28/20 12/23/20 History Isosorbide Mononitrate ER [Imdur] 30 mg PO DAILY 30 Days #30 04/01/20 12/23/20 Rx tab.er.24h amLODIPine [Norvasc] 5 mg PO DAILY 30 Days #30 tab 04/01/20 12/23/20 Rx carvediloL [Coreg*] 25 mg PO BID-W/MEALS 30 Days #120 04/01/20 12/23/20 Rx tab Folic Acid 0.8 mg PO DAILY 12/23/20 12/23/20 History Allergies Allergy/AdvReac Type Severity Reaction Status Date / Time No Known Allergies Allergy Verified 12/23/20 21:52 Physical Exam Vitals: Vital Signs Temp Pulse Pulse Resp BP BP Pulse Ox 12/24/20 08:17 97.9 F 65 17 152/78 94 L 12/24/20 04:00 97.8 F 64 17 146/69 94 L 12/24/20 02:00 72 17 12/24/20 00:00 98.3 F 75 17 151/74 90 L 12/23/20 23:52 74 20 164/89 93 L 12/23/20 22:00 66 18 108/67 93 L 08/25/21 21:30 68 18 115/62 88 L 12/23/20 21:00 67 16 104/79 87 L 12/23/20 20:44 97.7 F 68 18 104/79 91 L 12/23/20 20:43 71 18 Intake and Output 12/23/20 12/24/20 12/24/20 22:59 06:59 14:59 Intake Total 510 240 Output Total 200 Balance 510 40 Intake: Intake, IV Titration 150 Amount Sodium Chloride 0.9% 1, 150 000 ml @ 75 mls/hr IV . [id number] [facility] Rx#:[id number] Oral 360 240 Output: Urine 200 Other: Voiding Method Urinal Urinal Weight 107.955 kg 103.9 kg PHYSICAL EXAMINATION: Patient is lying in the bed comfortably, no acute distress, awake alert and oriented.. HEENT: Normocephalic. Neck is supple. Pupils reactive. Nostrils clear. Oral cavity is moist. Neck reveals no JVD, carotid bruits, or thyromegaly. CHEST EXAMINATION: Trachea is central. Symmetrical expansion. Lung reynoso clear to auscultation and percussion. CARDIAC: Normal S1, S2 with no gallops. No murmurs ABDOMEN: Soft. Bowel sounds normal. No organomegaly. No abdominal bruits. Extremities: reveal no edema. No clubbing or cyanosis Neurologically awake, alert, oriented x3 with well-coordinated movements. No focal deficits noted Skin: No rash or skin lesions. Psychiatric: Coperative. Nonsuicidal Musculoskeletal: No joint swelling or deformity. Normal range of motion. Results CBC & Chem 7: 12/23/20 21:02 12/23/20 21:02 Labs: Abnormal Lab Results - Last 24 Hours (Table) 12/23/20 12/23/20 12/23/20 Range/Units 21:02 21:02 21:02 Plt Count 148 L (150-450) k/uL APTT 20.8 L (22.0-30.0) sec BUN 27 H (9-20) mg/dL Glucose 128 H (74-99) mg/dL Troponin I (0.000-0.034) ng/mL 12/23/20 Range/Units 21:02 Plt Count (150-450) k/uL APTT (22.0-30.0) sec BUN (9-20) mg/dL Glucose (74-99) mg/dL Troponin I 0.049 H* (0.000-0.034) ng/mL Thrombosis Risk Factor Assmnt - DVT/VTE Prophylaxis DVT/VTE Prophylaxis: Pharmacologic Prophylaxis ordered - Choose All That Apply Any of the Below Risk Factors Present?: Yes Each Factor Represents 1 point: Abnormal pulmonary function (COPD), Obesity (BMI >25) Each Risk Factor Represents 2 Points: Age 61-74 years Thrombosis Risk Factor Assessment Total Risk Factor Score: 4 Thrombosis Risk Factor Assessment Level: Moderate Risk Assessment and Plan Assessment: Acute presyncopal episode likely due to dehydration and possible vasovagal. Acute diarrhea improving. Elevated troponin level trending down now. Unlikely ACS. Nausea and vomiting Coronary disease history of CABG Hyperlipidemia Severe peripheral vascular disease Ischemic cardiomyopathy ejection fraction 40 to 45% Chronic CHF with systolic dysfunction DVT prophylaxis with heparin subcu Plan: Patient will be continued Continue IV hydration with normal saline. Monitor respiratory status. Troponin levels are trending down at this time. Patient otherwise denies any complaints of chest pain or shortness of breath. Patient was seen by cardiology. Elevated troponin level not indicative of ACS. 2D echocardiogram was ordered. Orthostatic vitals negative which was done after fluid bolus. Continue with aspirin, statins, Plavix, Coreg and amlodipine. Cardiology is on board. Continue to follow closely. Time with Patient: Greater than 30
[2020-12-25 07:26] LABS: Basophils % (A) 1 %; Eosinophils # (A) 0.1 k/uL (0-0.7); Eosinophils % (A) 2 %; HCT 42.9 % (39.0-53.0); HGB 14.2 gm/dL (13.0-17.5); Lymphocytes # (A) 1.3 k/uL (1.0-4.8); Lymphocytes % (A) 20 %; MCHC 33.2 g/dL (31.0-37.0); MCV 93.6 fL (80.0-100.0); Mean Platelet Volume 8.1; Monocytes # (A) 0.3 k/uL (0-1.0); Monocytes % (A) 5 %; Neutrophils # (A) 4.6 k/uL (1.3-7.7); Neutrophils % (A) 71 %; Platelet Count 106 k/uL (150-450); RBC 4.58 m/uL (4.30-5.90); RDW 14.9 % (11.5-15.5); WBC 6.5 k/uL (3.8-10.6)
[2020-12-25 07:36] LABS: African American GFR (CKD) >90 (>60 ml/min/1.73 sqM); Anion Gap 10 mmol/L; Blood Urea Nitrogen 19 mg/dL (9-20); Calcium 9.3 mg/dL (8.4-10.2); Carbon Dioxide 29 mmol/L (22-30); Chloride 105 mmol/L (98-107); Glucose 133 mg/dL (74-99); Non-African American GFR(CKD) >90 (>60 ml/min/1.73 sqM); Sodium 144 mmol/L (137-145)
[2020-12-25] MEDS ORDERED: HEPARIN SODIUM,PORCINE/PF 5,000 UNIT/0.5 ML SYRINGE SQ SCH (08:00)
[2020-12-25 08:06] VITALS: BP 168/76; PULSE 65; TEMP 97.8
[2020-12-25] MEDS: ASPIRIN 81 MG PO SCH (08:09)
[2020-12-25] MEDS: amLODIPine 5 MG TAB PO SCH (08:09)
[2020-12-25] MEDS: ATORVASTATIN 80 MG TAB PO SCH (08:09)
[2020-12-25] MEDS: carvediloL 12.5 MG TAB PO SCH (08:09)
[2020-12-25] MEDS: CLOPIDOGREL 75 MG TAB PO SCH (08:09)
[2020-12-25] MEDS: ISOSORBIDE MONONITRATE ER 30 MG TAB.ER.24H PO SCH (08:09)
--- NOTE | 2020-12-25 13:35 | P.PN ---
Subjective Progress Note Date: 12/25/20 HISTORY OF PRESENT ILLNESS: This is a pleasant 65-year-old male past medical history significant for hypertenseion, dyslipidemia, severe peripheral disease, coronary artery disease s/p 3 vessel CABG (BENITEZ to LAD and SVG to the PDA and diagonal) in 2011 and in June 2016 he underwent redo surgery with Dr. Harmon received a left radial to the obtuse marginal branch and SVG to the PDA. He follows at the [facility] office in [place]. We have been asked to see in consultation for presyncope and elevated troponin x 1. Patient presents to the emergent department for an episode of lightheadedness, nausea, and vomiting. Patient states he was at his friends house yesterday evening, around 7pm, He stated that he went to have the bowel movement, he had to sit down for about 10 minutes and had diarrhea. Few minutes later he had to return to the bathroom and was having diarrhea for about 15 minutes. When walking out of the bathroom he felt as if his legs were "wobbling" he felt very unsteady, he proceeded to experience nausea, one episode of emesis. He was also lightheaded, diaphoretic, felt as if he may pass out. He did not lose consciousness. His friend called EMS and he was taken to the emergency department. He states his friends home was very hot, had no air conditioning. He states that afternoon he did eat chicken wings, coffee and had half of a beer. No further alcohol after this. He states his symptoms resolved after he received IV fluids and was in the air conditioning. He last saw his barrel leveler at [facility] about 8 months ago, no further changes to his meds, no cardiac workup at that time, and was told everything was well in terms of his heart. He states he has not had any further stents or cardiac catheterizations after 2016. He states that since his in July he has not been having the best diet, states he has not been eating and drinking quite as much and not healthy foods. He also started smoking again since July 2020 and is now smoking 1 PPD. He does occasionally drink alcohol, did have 1 beer yesterday. He denies chest pain, palpitations. He does endorse increased shortness of breath lately and he attributed this to his increased cigarette smoking. He denies symptoms of orthopnea or PND, or lower extremity edema. Patient did present to the hospital in end of March 2020 with and episode of chest pain, also left flank pain and hydronephrosis. Acute coronary syndrome was ruled out. He did have an echocardiogram which showed a mild to moderately impaired EF 40-45%, with segmental wall motion abnormality and mild mitral regurgitation and tricuspid regurgitation. Patient underwetn cystoscopy with left ureteroscopy, lithotripsy and placement of left double j catheter with urology. Patient was stable to be discharged from a cardiology perspective and follow up with his barrel leveler DIAGNOSTICS EKG reveals sinus rhythm HR 68, short ME, T wave inversion in lead III, no significant ST-T wave abnormalities. Prior EKG appear similar Telemetry tracings indicate sinus mechanism HR 55-70s Most recent echocardiogram 03/2020- EF 40-45%, basal lateral, basal inferior, basal inferoseptal, mid inferior wall hypokinetic, mild MR, mild TR Chest xray No acute cardiopulmonary process. Laboratory reviewed, CBC unremarkable, Troponin 0.04, 0.02, 0.02, Sodium 137, K 4.2, BUN 27, sCr 1.15 Current cardiac medications include Coreg 25mg BID, amlodipine 5mg daily, Crestor 40mg daily, PRN Sublingual nitro, Imdur 30mg daily, Plavix 75mg daily, aspirin 81mg daily 12/25/2020 Patient examined this morning at the bedside. Patient denies chest pain or pressure. He denies shortness of breath. He denies any further episodes of diarrhea or vomiting. Patient denies dizziness or lightheadedness. Echoca rdiogram completed revealing ejection fraction 45-50%. Trace mitral regurgitation. Trace tricuspid regurgitation. Patient is hoping to be discharged home today. PHYSICAL EXAM: VITAL SIGNS: Reviewed. GENERAL: Well-developed in no acute distress. NECK: Supple. No JVD or thyromegaly LUNGS: Respirations even and unlabored. Lungs essentially clear to auscultation bilaterally. HEART: Regular rate and rhythm. S1 and S2 heard. EXTREMITIES: Normal range of motion. No clubbing or cyanosis. Peripheral pulses intact. No lower extremity edema ASSESSMENT: Elevated troponin x 1, not indicative of acute coronary syndrome, patient without chest pain Presyncope Diarrhea Nausea, Vomiting History of hypertension Dyslipidemia Severe peripheral vascular disease History of ischemic cardiomyopathy EF 40-45% Chronic systolic heart failure History of Coronary artery disease s/p 3 vessel CABG (BENITEZ to LAD and SVG to the PDA and diagonal) in 2011 and in June 2016 he underwent redo surgery with Dr. Harmon received a left radial to the obtuse marginal branch and SVG to the PDA. Current every day smoker PLAN: Continue current cardiac medications Patient is stable for discharge home today from a cardiac perspective He is to follow up on an outpatient basis Nurse practitioner note has been reviewed by physician. Signing provider agrees with the documented findings, assessment, and plan of care. Objective - Vital Signs Vital signs: Vital Signs Temp 97.8 F 12/25/20 08:05 Pulse 65 12/25/20 08:05 Resp 18 12/25/20 08:05 BP 168/76 12/25/20 08:05 Pulse Ox 94 L 12/25/20 08:05 Intake & Output 12/24/20 12/25/20 12/25/20 18:59 06:59 18:59 Intake Total 720 480 420 Output Total 200 0 Balance 520 480 420 Weight 102.7 kg Intake: Oral 720 480 420 Output: Urine 200 0 Stool 0 Other: Voiding Method Urinal Urinal Urinal # Voids 3 0 # Bowel Movements 0 - Labs CBC & Chem 7: 12/25/20 06:57 12/25/20 06:57 Labs: Abnormal Lab Results - Last 24 Hours (Table) 12/25/20 12/25/20 Range/Units 06:57 06:57 Plt Count 106 L (150-450) k/uL Glucose 133 H (74-99) mg/dL
== END 2020-12-25 11:54 | disposition home or self-care (01) ==
LOC: EC 20:30 → 3SCARD 22:25
PROVIDERS: ADMIT Hospitalist; ATTEND Hospitalist
DX: R55 Syncope and collapse (principal); R11.2 Nausea with vomiting, unspecified; R19.7 Diarrhea, unspecified; R53.83 Other fatigue; R61 Generalized hyperhidrosis; E78.5 Hyperlipidemia, unspecified; I25.10 Atherosclerotic heart disease of native coronary artery without angina pectoris; I25.2 Old myocardial infarction; F41.9 Anxiety disorder, unspecified; F31.9 Bipolar disorder, unspecified; J44.9 Chronic obstructive pulmonary disease, unspecified; M19.90 Unspecified osteoarthritis, unspecified site; E66.9 Obesity, unspecified; Z68.31 Body mass index [BMI] 31.0-31.9, adult; E86.0 Dehydration; I11.0 Hypertensive heart disease with heart failure; I50.22 Chronic systolic (congestive) heart failure; I25.5 Ischemic cardiomyopathy; I73.9 Peripheral vascular disease, unspecified; F17.210 Nicotine dependence, cigarettes, uncomplicated; Z95.1 Presence of aortocoronary bypass graft; Z86.73 Personal history of transient ischemic attack (TIA), and cerebral infarction without residual deficits; Z86.19 Personal history of other infectious and parasitic diseases; Z95.828 Presence of other vascular implants and grafts; Z79.82 Long term (current) use of aspirin; Z79.899 Other long term (current) drug therapy; Z79.02 Long term (current) use of antithrombotics/antiplatelets; Z80.9 Family history of malignant neoplasm, unspecified
CPT/HCPCS: 96372; 96361; 96374; 99285; 36415; 93005; 83880; 80053; 80048; 84484 ×2; 85025 ×2; 85610; 85730; 71045; G0378 ×3; C8929; J2405; Q9950; J1644; 93306

== ENCOUNTER 2022-12-22 15:18 | Emergency (ER) | payer MEDICARE ==
[2022-12-22 15:31] VITALS: RESP 18; TEMP 98.2
--- NOTE | 2022-12-22 16:10 | ED ---
General Adult HPI - General Chief complaint: Syncope Stated complaint: Chest Pain Time Seen by Provider: 12/22/22 15:40 Source: patient, EMS Mode of arrival: EMS Limitations: no limitations - History of Present Illness Initial comments: 67-year-old male with past medical history of coronary artery disease s/p CABG, congestive heart failure, CVA who presents to the emergency department after he had a syncopal episode. States that he just returned from a camping trip and was carrying a lot of heavy items into his house. He began having chest pain an d took a nitro. States he will have chest pain episodes approximately once every 3 months. He will require several nitros. Today the patient took 1 and ambulated to the bathroom. On his way back he had a syncopal episode. Fell to the ground but denies hitting his head. States he was only out for a couple of seconds. Admits to some right hip pain after the fall. Does not take any blood thinners. When he came to, he was able to get up off the ground and called EMS himself. Chest pain is gone at this time. Follows with the book packer at the [facility]. He denies any headache or visual changes. No lateralizing numbness. No neck or back pain. Denies being short of breath. No other alleviating, precipitating or modifying factors - Related Data Home Medications Medication Instructions Recorded Confirmed Aspirin 81 mg PO DAILY 04/04/16 12/23/20 Clopidogrel [Plavix] 75 mg PO DAILY 04/04/16 12/23/20 Nitroglycerin Sl Tabs [Nitrostat] 0.4 mg SUBLINGUAL Q5M PRN 04/04/16 12/23/20 Sertraline HCl [Zoloft] 100 mg PO BID 04/04/16 12/23/20 Rosuvastatin Calcium [Crestor] 40 mg PO DAILY 03/28/20 12/23/20 Folic Acid 0.8 mg PO DAILY 12/23/20 12/23/20 Previous Rx's Medication Instructions Recorded Isosorbide Mononitrate ER [Imdur] 30 mg PO DAILY 30 Days #30 04/01/20 tab.er.24h amLODIPine [Norvasc] 5 mg PO DAILY 30 Days #30 tab 04/01/20 carvediloL [Coreg*] 25 mg PO BID-W/MEALS 30 Days #120 04/01/20 tab Allergies Allergy/AdvReac Type Severity Reaction Status Date / Time No Known Allergies Allergy Verified 12/22/22 15:31 Review of Systems ROS Statement: Those systems with pertinent positive or pertinent negative responses have been documented in the HPI. ROS Other: All systems not noted in ROS Statement are negative. Past Medical History Past Medical History: Cancer, Chest Pain / Angina, COPD, CVA/TIA, Hyperlipidemia, Hypertension, Myocardial Infarction (PA), Osteoarthritis (OA) Additional Past Medical History / Comment(s): generalized fatigue, unable to walk distance,SOB, CVA-several yrs. ago-post carotid endarterectomy-no residual effects Last Myocardial Infarction Date:: 2012 History of Any Multi-Drug Resistant Organisms: None Reported Past Surgical History: Coronary Bypass/CABG, Heart Catheterization Additional Past Surgical History / Comment(s): earlene. carotid endarterectomy, triple bypass 2012, diaphragm repair post CABG, fem-fem. bypass, Cryoablation of right renal tumor- approximately 2009 at [facility] Past Anesthesia/Blood Transfusion Reactions: No Reported Reaction Past Psychological History: Anxiety, Bipolar Smoking Status: Current every day smoker Past Alcohol Use History: Occasional Past Drug Use History: None Reported - Past Family History Mother Family Medical History: Cancer General Exam Limitations: no limitations General appearance: alert, in no apparent distress Head exam: Present: atraumatic, normocephalic, normal inspection Eye exam: Present: normal appearance, PERRL, EOMI. Absent: scleral icterus, conjunctival injection, periorbital swelling ENT exam: Present: normal exam, mucous membranes moist Neck exam: Present: normal inspection. Absent: tenderness, meningismus, lymphadenopathy Respiratory exam: Present: normal lung sounds bilaterally. Absent: respiratory distress, wheezes, rales, rhonchi, stridor Cardiovascular Exam: Present: regular rate, normal rhythm, normal heart sounds. Absent: systolic murmur, diastolic murmur, rubs, gallop, clicks GI/Abdominal exam: Present: soft, normal bowel sounds. Absent: distended, tenderness, guarding, rebound, rigid Extremities exam: Present: tenderness (Mild hip tenderness to palpation), normal capillary refill. Absent: pedal edema, joint swelling, calf tenderness Back exam: Present: normal inspection Neurological exam: Present: alert, oriented X3, CN II-XII intact Psychiatric exam: Present: normal affect, normal mood Skin exam: Present: warm, dry, intact, normal color. Absent: rash Course Vital Signs 12/22/22 12/22/22 12/22/22 15:25 16:31 16:39 Temperature 98.2 F Pulse Rate 68 62 Pulse Rate [ 60 Warehouse Specialist ] Respiratory 18 18 18 Rate Blood Pressure 137/61 145/72 Blood Pressure 126/75 [Right Arm Sitting] Blood Pressure 135/77 [Right Arm Standing] Blood Pressure 146/68 [Right Arm Supine] O2 Sat by Pulse 95 94 L 94 L Oximetry 12/22/22 18:30 Temperature Pulse Rate 67 Pulse Rate [ Warehouse Specialist ] Respiratory 18 Rate Blood Pressure 159/85 Blood Pressure [Right Arm Sitting] Blood Pressure [Right Arm Standing] Blood Pressure [Right Arm Supine] O2 Sat by Pulse 96 Oximetry Medical Decision Making - Medical Decision Making Was pt. sent in by a medical professional or institution (, [facility], MANAGER SPANISH, urgent care, hospital, or [facility]...) When possible be specific @ -No Did you speak to anyone other than the patient for history (EMS, parent, family, police, friend...)? What history was obtained from this source @ -I spoke with EMS in regards to the patient's history. I also spoke with the patient's daughter Did you review nursing and triage notes (agree or disagree)? Why? @ -I reviewed and agree with nursing and triage notes Were old charts reviewed (outside hosp., previous admission, EMS record, old EKG, old radiological studies, urgent care reports/EKG's, [facility] records)? Report findings @ -No old charts were reviewed Differential Diagnosis (chest pain, altered mental status, abdominal pain women, abdominal pain men, vaginal bleeding, weakness, fever, dyspnea, syncope, headache, dizziness, GI bleed, back pain, seizure, CVA, palpatations, mental health, musculoskeletal)? @ -Differential Syncope: Valvular disease, hypertrophic cardiomyopathy, pulmonary embolism, tamponade, tachycardia, bradycardia, PA, hypovolemia, hemorrhage, dissection, anemia, intracranial hemorrhage, seizure, hypoglycemia, carbon monoxide poisoning, this is not meant to be an all-inclusive list. EKG interpreted by me (3pts min.). @ -Yes and demonstrates sinus rhythm with a rate of 64. HI 169. QRS 125. QTC of 440. Q waves in lead 3. No acute ST segment elevation. No signs concerning for ischemia or infarction X-rays interpreted by me (1pt min.). @ -Yes and demonstrates mild interstitial edema CT interpreted by me (1pt min.). @ -None done U/S interpreted by me (1pt. min.). @ -None done What testing was considered but not performed or refused? (CT, X-rays, U/S, labs)? Why? @ -Echo however patient would have to be admitted and he is refusing admission. Also recommended right hip x-ray as he is reporting hip pain after fall but patient refused What meds were considered but not given or refused? Why? @ -None Did you discuss the management of the patient with other professionals (professionals i.e. , PA, MANAGER SPANISH, lab, RT, psych nurse, public health social worker, spray gunner, t eacher, sanitation officer, corrections caseworker)? Give summary @ -No Was smoking cessation discussed for >3mins.? @ -No Was critical care preformed (if so, how long)? @ -No Were there social determinants of health that impacted care today? How? (Homelessness, low income, unemployed, alcoholism, drug addiction, transportation, low edu. Level, literacy, decrease access to med. care, fci, rehab)? @ -No Was there de-escalation of care discussed even if they declined (Discuss DNR or withdrawal of care, Hospice)? DNR status @ -No What co-morbidities impacted this encounter? (DM, HTN, Smoking, COPD, CAD, Cancer, CVA, ARF, Chemo, Hep., AIDS, mental health diagnosis, sleep apnea, morbid obesity)? @ -Cardiovascular disease Was patient admitted / discharged? Hospital course, mention meds given and route, prescriptions, significant lab abnormalities, going to OR and other pertinent info. @ -Upon arrival patient is placed into hallway 22. History and physical exam is performed. He is hooked to continuous pulse ox and cardiac monitoring. 12-lead EKG is obtained. IV is established and laboratory studies were conducted. Patient is taken for chest x-ray. Results are discussed with the patient. Did recommend admission as he is reporting chest pain was significantly cardiovascular disease. Patient does not want to be admitted at this time. He is aware of the risks of leaving to include permanent disability and . He is accepting of these risks. Patient will be discharged and it is strongly recommended that he follow-up with primary care doctor within 1-2 days. Return should he be agreeable to admission or have any new or worsening symptoms. Patient was agreeable this and is discharged in stable condition Undiagnosed new problem with uncertain prognosis? @ -Yes Drug Therapy requiring intensive monitoring for toxicity (Heparin, Nitro, Insulin, Cardizem)? @ -No Were any procedures done? @ -No Diagnosis/symptom? @ -Acute chest pain, acute syncope Acute, or Chronic, or Acute on Chronic? @ -Acute Uncomplicated (without systemic symptoms) or Complicated (systemic symptoms)? @ -Complicated Side effects of treatment? @ -No Exacerbation, Progression, or Severe Exacerbation? @ -No Poses a threat to life or bodily function? How? (Chest pain, USA, PA, pneumonia, PE, COPD, DKA, ARF, appy, cholecystitis, CVA, Diverticulitis, Homicidal, Suicidal, threat to staff... and all critical care pts) @ -Yes as patient is suffering from chest pain with a significant history of coronary disease - Lab Data Result diagrams: 12/22/22 16:25 12/22/22 16:25 Lab Results 12/22/22 12/22/22 12/22/22 Range/Units 16:25 16:25 16:25 WBC 6.7 (3.8-10.6) k/uL RBC 4.74 (4.30-5.90) m/uL Hgb 14.6 (13.0-17.5) gm/dL Hct 43.1 (39.0-53.0) % MCV 91.1 (80.0-100.0) fL MCH 30.8 (25.0-35.0) pg MCHC 33.8 (31.0-37.0) g/dL RDW 14.6 (11.5-15.5) % Plt Count 127 L (150-450) k/uL MPV 8.2 Neutrophils % 68 % Lymphocytes % 20 % Monocytes % 6 % Eosinophils % 3 % Basophils % 1 % Neutrophils # 4.6 (1.3-7.7) k/uL Lymphocytes # 1.4 (1.0-4.8) k/uL Monocytes # 0.4 (0-1.0) k/uL Eosinophils # 0.2 (0-0.7) k/uL Basophils # 0.0 (0-0.2) k/uL PT 10.3 (9.0-12.0) sec INR 1.0 (<1.2) APTT 22.5 (22.0-30.0) sec Sodium 138 (137-145) mmol/L Potassium 3.5 (3.5-5.1) mmol/L Chloride 101 (98-107) mmol/L Carbon Dioxide 28 (22-30) mmol/L Anion Gap 9 mmol/L BUN 16 (9-20) mg/dL Creatinine 0.92 (0.66-1.25) mg/dL Est GFR (CKD-EPI)AfAm >90 (>60 ml/min/1.73 sqM) Est GFR (CKD-EPI)NonAf 85 (>60 ml/min/1.73 sqM) Glucose 109 H (74-99) mg/dL Calcium 8.9 (8.4-10.2) mg/dL Magnesium 2.1 (1.6-2.3) mg/dL Total Bilirubin 1.1 (0.2-1.3) mg/dL AST 32 (17-59) U/L ALT 34 (4-49) U/L Alkaline Phosphatase 64 (38-126) U/L Troponin I (0.000-0.034) ng/mL NT-Pro-B Natriuret Pep 1790 pg/mL Total Protein 7.3 (6.3-8.2) g/dL Albumin 4.2 (3.5-5.0) g/dL 12/22/22 Range/Units 16:25 WBC (3.8-10.6) k/uL RBC (4.30-5.90) m/uL Hgb (13.0-17.5) gm/dL Hct (39.0-53.0) % MCV (80.0-100.0) fL MCH (25.0-35.0) pg MCHC (31.0-37.0) g/dL RDW (11.5-15.5) % Plt Count (150-450) k/uL MPV Neutrophils % % Lymphocytes % % Monocytes % % Eosinophils % % Basophils % % Neutrophils # (1.3-7.7) k/uL Lymphocytes # (1.0-4.8) k/uL Monocytes # (0-1.0) k/uL Eosinophils # (0-0.7) k/uL Basophils # (0-0.2) k/uL PT (9.0-12.0) sec INR (<1.2) APTT (22.0-30.0) sec Sodium (137-145) mmol/L Potassium (3.5-5.1) mmol/L Chloride (98-107) mmol/L Carbon Dioxide (22-30) mmol/L Anion Gap mmol/L BUN (9-20) mg/dL Creatinine (0.66-1.25) mg/dL Est GFR (CKD-EPI)AfAm (>60 ml/min/1.73 sqM) Est GFR (CKD-EPI)NonAf (>60 ml/min/1.73 sqM) Glucose (74-99) mg/dL Calcium (8.4-10.2) mg/dL Magnesium (1.6-2.3) mg/dL Total Bilirubin (0.2-1.3) mg/dL AST (17-59) U/L ALT (4-49) U/L Alkaline Phosphatase (38-126) U/L Troponin I 0.025 (0.000-0.034) ng/mL NT-Pro-B Natriuret Pep pg/mL Total Protein (6.3-8.2) g/dL Albumin (3.5-5.0) g/dL Disposition Clinical Impression: Chest pain, Syncope Disposition: HOME SELF-CARE Condition: Stable Instructions (If sedation given, give patient instructions): Syncope (ED) Additional Instructions: I did recommend hospital admission. Please follow-up with your primary care doctor. Return for any new or worsening symptoms or should you agree to hospitalization Is patient prescribed a controlled substance at d/c from ED?: No Referrals: Eufemia Zapata PAC [REFERRING] - 1-2 days Time of Disposition: 18:18
--- NOTE | 2022-12-22 16:31 | XR ---
EXAMINATION TYPE: XR chest 2V DATE OF EXAM: 12/22/2022 4:24 PM COMPARISON: Chest radiographs from 12/23/2020 TECHNIQUE: XR chest 2V Frontal and lateral views of the chest. CLINICAL INDICATION:Male, 67 years old with history of Chest Pain; FINDINGS: Lungs/Pleura: There is no evidence of pleural effusion, focal consolidation, or pneumothorax. Centra l pulmonary vasculature prominence. Heart/mediastinum: Cardiomediastinal silhouette is enlarged and stable. Atherosclerotic calcificatio ns are seen in the aorta. Post CABG changes. Musculoskeletal: Multiple level degenerative disc disease changes seen throughout the spine. Midline sternotomy wires are noted and stable. IMPRESSION: Cardiomegaly with prominent central vasculature. Correlate for CHF exacerbation.
[2022-12-22 16:40] LABS: Basophils % (A) 1 %; Eosinophils # (A) 0.2 k/uL (0-0.7); Eosinophils % (A) 3 %; HCT 43.1 % (39.0-53.0); HGB 14.6 gm/dL (13.0-17.5); Lymphocytes # (A) 1.4 k/uL (1.0-4.8); Lymphocytes % (A) 20 %; MCH 30.8 pg (25.0-35.0); MCHC 33.8 g/dL (31.0-37.0); MCV 91.1 fL (80.0-100.0); Mean Platelet Volume 8.2; Monocytes # (A) 0.4 k/uL (0-1.0); Monocytes % (A) 6 %; Neutrophils # (A) 4.6 k/uL (1.3-7.7); Neutrophils % (A) 68 %; Platelet Count 127 k/uL (150-450); RBC 4.74 m/uL (4.30-5.90); RDW 14.6 % (11.5-15.5); WBC 6.7 k/uL (3.8-10.6)
[2022-12-22 16:55] LABS: Partial Thromboplastin Time 22.5 sec (22.0-30.0); Prothrombin Time 10.3 sec (9.0-12.0)
[2022-12-22 16:59] LABS: ALT 34 U/L (4-49); AST 32 U/L (17-59); African American GFR (CKD) >90 (>60 ml/min/1.73 sqM); Albumin 4.2 g/dL (3.5-5.0); Alkaline Phosphatase 64 U/L (38-126); Anion Gap 9 mmol/L; Blood Urea Nitrogen 16 mg/dL (9-20); Calcium 8.9 mg/dL (8.4-10.2); Carbon Dioxide 28 mmol/L (22-30); Chloride 101 mmol/L (98-107); Glucose 109 mg/dL (74-99); Magnesium 2.1 mg/dL (1.6-2.3); Non-African American GFR(CKD) 85 (>60 ml/min/1.73 sqM); Potassium 3.5 mmol/L (3.5-5.1); Sodium 138 mmol/L (137-145); Total Bilirubin 1.1 mg/dL (0.2-1.3); Total Protein 7.3 g/dL (6.3-8.2)
[2022-12-22 17:08] LABS: NT-Pro-B-Type Natriuretic Pept 1790 pg/mL
[2022-12-22 18:32] VITALS: BP 159/85; PULSE 67
== END 2022-12-22 18:32 | disposition home or self-care (01) ==
LOC: EC 15:18
DX: R55 Syncope and collapse (principal); R07.9 Chest pain, unspecified; I11.0 Hypertensive heart disease with heart failure; I50.9 Heart failure, unspecified; J44.9 Chronic obstructive pulmonary disease, unspecified; I25.2 Old myocardial infarction; M19.90 Unspecified osteoarthritis, unspecified site; I25.10 Atherosclerotic heart disease of native coronary artery without angina pectoris; E78.5 Hyperlipidemia, unspecified; F17.200 Nicotine dependence, unspecified, uncomplicated; Z79.02 Long term (current) use of antithrombotics/antiplatelets; Z79.82 Long term (current) use of aspirin; Z79.899 Other long term (current) drug therapy; Z95.1 Presence of aortocoronary bypass graft
CPT/HCPCS: 36415; 71046; 80053; 83735; 83880; 84484; 85025; 85610; 85730; 93005; 99284

== ENCOUNTER 2023-08-30 02:17 | Inpatient (IN) | payer MEDICARE ==
[2023-08-30] MEDS: methylPREDNISolone SOD SUCCI 125 MG/2 ML VIAL IV STA (02:49)
[2023-08-30] MEDS: MAGNESIUM SULFATE-D5W PMX 1 GM in DEXTROSE/WATER 1 100ML.BAG IVPB STA (02:49)
[2023-08-30] MEDS: IPRATROPIUM-ALBUTEROL 3 ML NEB INHALATION STA (02:50)
[2023-08-30 02:56] LABS: Basophils # (A) 0.1 k/uL (0-0.2); Basophils % (A) 1 %; Eosinophils # (A) 0.2 k/uL (0-0.7); Eosinophils % (A) 4 %; HCT 49.2 % (39.0-53.0); HGB 15.8 gm/dL (13.0-17.5); Lymphocytes # (A) 1.3 k/uL (1.0-4.8); Lymphocytes % (A) 28 %; MCH 29.9 pg (25.0-35.0); MCHC 32.2 g/dL (31.0-37.0); MCV 93.2 fL (80.0-100.0); Mean Platelet Volume 8.8; Monocytes # (A) 0.4 k/uL (0-1.0); Monocytes % (A) 9 %; Neutrophils # (A) 2.5 k/uL (1.3-7.7); Neutrophils % (A) 54 %; Platelet Count 126 k/uL (150-450); RBC 5.28 m/uL (4.30-5.90); RDW 14.4 % (11.5-15.5); WBC 4.6 k/uL (3.8-10.6)
[2023-08-30 03:05] LABS: ALT 46 U/L (4-49); AST 37 U/L (17-59); African American GFR (CKD) >90 (>60 ml/min/1.73 sqM); Albumin 4.5 g/dL (3.5-5.0); Alkaline Phosphatase 75 U/L (38-126); Anion Gap 7 mmol/L; Blood Urea Nitrogen 12 mg/dL (9-20); Calcium 8.5 mg/dL (8.4-10.2); Carbon Dioxide 30 mmol/L (22-30); Chloride 104 mmol/L (98-107); Glucose 127 mg/dL (74-99); Magnesium 1.9 mg/dL (1.6-2.3); Non-African American GFR(CKD) 89 (>60 ml/min/1.73 sqM); Potassium 4.3 mmol/L (3.5-5.1); Sodium 141 mmol/L (137-145); Total Protein 7.7 g/dL (6.3-8.2)
--- NOTE | 2023-08-30 03:11 | ED ---
General Adult HPI - General Chief complaint: Shortness of Breath Stated complaint: FAY Time Seen by Provider: 08/30/23 02:30 Source: patient Mode of arrival: ambulatory - History of Present Illness Initial comments: Patient is a 68-year-old male with past medical history markable for COPD, CABG, hypertension, hyperlipidemia. Is not normally on oxygen at home. Has noticed for worsening shortness of breath for the last 2 days. Is progressively getting worse. Worse this evening. Thinks it is a COPD. Endorses a cough that is minimally productive of sputum. Denies any fevers or chills. Denies any nausea or vomiting. Presents for further evaluation at this time. Denies chest pain. - Related Data Home Medications Medication Instructions Recorded Confirmed Aspirin 81 mg PO DAILY 04/04/16 12/23/20 Clopidogrel [Plavix] 75 mg PO DAILY 04/04/16 12/23/20 Nitroglycerin Sl Tabs [Nitrostat] 0.4 mg SUBLINGUAL Q5M PRN 04/04/16 12/23/20 Sertraline HCl [Zoloft] 100 mg PO BID 04/04/16 12/23/20 Rosuvastatin Calcium [Crestor] 40 mg PO DAILY 03/28/20 12/23/20 Folic Acid 0.8 mg PO DAILY 12/23/20 12/23/20 Previous Rx's Medication Instructions Recorded Isosorbide Mononitrate ER [Imdur] 30 mg PO DAILY 30 Days #30 04/01/20 tab.er.24h amLODIPine [Norvasc] 5 mg PO DAILY 30 Days #30 tab 04/01/20 carvediloL [Coreg*] 25 mg PO BID-W/MEALS 30 Days #120 04/01/20 tab Allergies Allergy/AdvReac Type Severity Reaction Status Date / Time No Known Allergies Allergy Verified 08/30/23 02:23 Review of Systems ROS Statement: Those systems with pertinent positive or pertinent negative responses have been documented in the HPI. Review of Systems: CONST: Denies fever EYES: Denies blurry vision ENT: Denies nasal congestion C/V: Denies Chest pain RESP: Endorses shortness of breath GI: Denies abdominal pain : Denies dysuria SKIN: Denies rash. MSK: Denies joint pain. NEURO: Denies headache ROS Other: All systems not noted in ROS Statement are negative. Past Medical History Past Medical History: Cancer, Chest Pain / Angina, COPD, CVA/TIA, Hyperlipidemia, Hypertension, Myocardial Infarction ([place]), Osteoarthritis (OA) Additional Past Medical History / Comment(s): generalized fatigue, unable to walk distance,SOB, CVA-several yrs. ago-post carotid endarterectomy-no residual effects Last Myocardial Infarction Date:: 2012 History of Any Multi-Drug Resistant Organisms: None Reported Past Surgical History: Coronary Bypass/CABG, Heart Catheterization Additional Past Surgical History / Comment(s): earlene. carotid endarterectomy, triple bypass 2012, diaphragm repair post CABG, fem-fem. bypass, Cryoablation of right renal tumor- approximately [address] [facility] Past Anesthesia/Blood Transfusion Reactions: No Reported Reaction Past Psychological History: Anxiety, Bipolar Smoking Status: Current every day smoker Past Alcohol Use History: Occasional Past Drug Use History: None Reported - Past Family History Mother Family Medical History: Cancer General Exam - General Exam Comments Initial Comments: General: Appears in mild distress. Minimal increased work of breathing. HEAD: Normal with no signs of head trauma. EYES: PERRLA, EOMI, conjunctiva normal, no discharge. ENT: Hearing grossly intact, normal oropharynx. RESPIRATORY: Mild increased work of breathing. Hypoxic on room air in the ED presents. Reduced breath sounds bilaterally with end expiratory wheezing. C/V: Regular rate and rhythm. S1 and S2 auscultated, no edema, peripheral pulses 2+ and intact throughout ABD: Abd is soft, nontender, nondistended EXT: Normal range of motion, no obvious deformity SKIN: No rashes or lesions observed on exposed skin. NEURO: Alert and oriented x 4. Course Vital Signs 08/30/23 08/30/23 08/30/23 02:19 02:50 03:00 Temperature 97.8 F Pulse Rate 89 73 72 Respiratory 24 Rate Blood Pressure 182/79 O2 Sat by Pulse 88 L Oximetry 08/30/23 08/30/23 08/30/23 03:01 03:11 03:41 Temperature Pulse Rate 72 68 61 Respiratory 20 Rate Blood Pressure 124/59 O2 Sat by Pulse 94 L Oximetry 08/30/23 04:00 Temperature 98.5 F Pulse Rate 58 L Respiratory 18 Rate Blood Pressure 128/70 O2 Sat by Pulse 93 L Oximetry Medical Decision Making - Medical Decision Making Was pt. sent in by a medical professional or institution (Dr., PA, AVIATION SAFETY EQUIPMENT TECHNICIAN, urgent care, hospital, or custodial...) When possible be specific @ -No Did you speak to anyone other than the patient for history (EMS, parent, family, police, friend...)? What history was obtained from this source @ -No Did you review nursing and triage notes (agree or disagree)? Why? @ -I reviewed and agree with nursing and triage notes Were old charts reviewed (outside hosp., previous admission, EMS record, old EKG, old radiological studies, urgent care reports/EKG's, custodial records)? Report findings @ -Old charts reviewed Differential Diagnosis (chest pain, altered mental status, abdominal pain women, abdominal pain men, vaginal bleeding, weakness, fever, dyspnea, syncope, headache, dizziness, GI bleed, back pain, seizure, CVA, palpatations, mental health, musculoskeletal)? @ -Differential Dyspnea: Coronary syndrome, arrhythmia, tamponade, asthma, COPD, pulmonary embolism, pneumonia, pneumothorax, pulmonary effusion, anaphylaxis, diabetic ketoacidosis, flailed chest, pulmonary contusion, diaphragmatic rupture, anemia, neuromuscular, this is not meant to be an all-inclusive list. EKG interpreted by me (3pts min.). @ -As above X-rays interpreted by me (1pt min.). @ -Chest x-ray reveals no obvious acute focal infiltrate. CT interpreted by me (1pt min.). @ -None done U/S interpreted by me (1pt. min.). @ -None done What testing was considered but not performed or refused? (CT, X-rays, U/S, labs)? Why? @ -None What meds were considered but not given or refused? Why? @ -None Did you discuss the management of the patient with other professionals (professionals i.e. KYLE Shaikh, AV[employer]ATION SAF[employer]Y EQUIPMENT TECHNICIAN, lab, RT, psych nurse, 7th grade social studies teacher, tray worker, teacher, chief contract officer, case worker)? Give summary @ -No Was smoking cessation discussed for >3mins.? @ -No Was critical care preformed (if so, how long)? @ -Yes, 35 minutes Were there social determinants of health that impacted care today? How? (Homelessness, low income, unemployed, alcoholism, drug addiction, transportation, low edu. Level, literacy, decrease access to med. care, residential, rehab)? @ -No Was there de-escalation of care discussed even if they declined (Discuss DNR or withdrawal of care, Hospice)? DNR status @ -No What co-morbidities impacted this encounter? (DM, HTN, Smoking, COPD, CAD, Cancer, CVA, ARF, Chemo, Hep., AIDS, mental health diagnosis, sleep apnea, morbid obesity)? @ -COPD, CABG Was patient admitted / discharged? Hospital course, mention meds given and rout e, prescriptions, significant lab abnormalities, going to OR and other pertinent info. @ -Based on patient's presentation and physical exam, presents with what appears to be a COPD exacerbation. We will obtain viral swabs, chest x-ray, cardiopulmonary labs. Patient was in agreement this plan. Vital signs remarkable for hypoxia on room air which is atypical for the patient. He will be placed on supplemental oxygen, administered breathing treatments, IV steroids, IV magnesium. Patient in agreement this plan. EKG shows no signs of acute ischemia.Chest x-ray reveals no obvious acute focal infiltrate. Patient's laboratory studies remarkable for negative viral swabs. On reevaluation, patient remains wheezy. Still needing 2 L nasal cannula oxygen to maintain adequate saturations which is abnormal for him as he is normally not on oxygen. Discussed with the patient and he will be started on antibiotics for bronchitis we will continue with IV steroids and breathing treatments with DuoNebs for COPD, bronchitis, hypoxic respiratory failure. He will be admitted. Pulmonology consulted. He was in agreement this plan. I spoke with the admitting team, [facility] Dr. Scott who accepted the admission. Undiagnosed new problem with uncertain prognosis? @ -No Drug Therapy requiring intensive monitoring for toxicity (Heparin, Nitro, Insulin, Cardizem)? @ -No Were any procedures done? @ -No Diagnosis/symptom? @ -COPD exacerbation, hypoxic respiratory failure, Tracheobronchitis Acute, or Chronic, or Acute on Chronic? @ -Acute Uncomplicated (without systemic symptoms) or Complicated (systemic symptoms)? @ -Complicated Side effects of treatment? @ -No Exacerbation, Progression, or Severe Exacerbation? @ -No Poses a threat to life or bodily function? How? (Chest pain, USA, ME, pneumonia, PE, COPD, DKA, ARF, appy, cholecystitis, CVA, Diverticulitis, Homicidal, Dede cidal, threat to staff... and all critical care pts) @ -Yes - Lab Data Result diagrams: 08/30/23 02:25 08/30/23 02:25 Lab Results 08/30/23 08/30/23 08/30/23 Range/Units 02:25 02:25 02:25 WBC 4.6 (3.8-10.6) k/uL RBC 5.28 (4.30-5.90) m/uL Hgb 15.8 (13.0-17.5) gm/dL Hct 49.2 (39.0-53.0) % MCV 93.2 (80.0-100.0) fL MCH 29.9 (25.0-35.0) pg MCHC 32.2 (31.0-37.0) g/dL RDW 14.4 (11.5-15.5) % Plt Count 126 L (150-450) k/uL MPV 8.8 Neutrophils % 54 % Lymphocytes % 28 % Monocytes % 9 % Eosinophils % 4 % Basophils % 1 % Neutrophils # 2.5 (1.3-7.7) k/uL Lymphocytes # 1.3 (1.0-4.8) k/uL Monocytes # 0.4 (0-1.0) k/uL Eosinophils # 0.2 (0-0.7) k/uL Basophils # 0.1 (0-0.2) k/uL PT 10.3 (10.0-12.5) sec INR 0.9 (<1.2) APTT 24.3 (22.0-30.0) sec Sodium 141 (137-145) mmol/L Potassium 4.3 (3.5-5.1) mmol/L Chloride 104 (98-107) mmol/L Carbon Dioxide 30 (22-30) mmol/L Anion Gap 7 mmol/L BUN 12 (9-20) mg/dL Creatinine 0.85 (0.66-1.25) mg/dL Est GFR (CKD-EPI)AfAm >90 (>60 ml/min/1.73 sqM) Est GFR (CKD-EPI)NonAf 89 (>60 ml/min/1.73 sqM) Glucose 127 H (74-99) mg/dL Calcium 8.5 (8.4-10.2) mg/dL Magnesium 1.9 (1.6-2.3) mg/dL Total Bilirubin 1.0 (0.2-1.3) mg/dL AST 37 (17-59) U/L ALT 46 (4-49) U/L Alkaline Phosphatase 75 (38-126) U/L Total Protein 7.7 (6.3-8.2) g/dL Albumin 4.5 (3.5-5.0) g/dL Influenza Type A (PCR) (Not Detectd) Influenza Type B (PCR) (Not Detectd) RSV (PCR) (Not Detectd) SARS-CoV-2 (PCR) (Not Detectd) 08/30/23 Range/Units 02:25 WBC (3.8-10.6) k/uL RBC (4.30-5.90) m/uL Hgb (13.0-17.5) gm/dL Hct (39.0-53.0) % MCV (80.0-100.0) fL MCH (25.0-35.0) pg MCHC (31.0-37.0) g/dL RDW (11.5-15.5) % Plt Count (150-450) k/uL MPV Neutrophils % % Lymphocytes % % Monocytes % % Eosinophils % % Basophils % % Neutrophils # (1.3-7.7) k/uL Lymphocytes # (1.0-4.8) k/uL Monocytes # (0-1.0) k/uL Eosinophils # (0-0.7) k/uL Basophils # (0-0.2) k/uL PT (10.0-12.5) sec INR (<1.2) APTT (22.0-30.0) sec Sodium (137-145) mmol/L Potassium (3.5-5.1) mmol/L Chloride (98-107) mmol/L Carbon Dioxide (22-30) mmol/L Anion Gap mmol/L BUN (9-20) mg/dL Creatinine (0.66-1.25) mg/dL Est GFR (CKD-EPI)AfAm (>60 ml/min/1.73 sqM) Est GFR (CKD-EPI)NonAf (>60 ml/min/1.73 sqM) Glucose (74-99) mg/dL Calcium (8.4-10.2) mg/dL Magnesium (1.6-2.3) mg/dL Total Bilirubin (0.2-1.3) mg/dL AST (17-59) U/L ALT (4-49) U/L Alkaline Phosphatase (38-126) U/L Total Protein (6.3-8.2) g/dL Albumin (3.5-5.0) g/dL Influenza Type A (PCR) Not Detected (Not Detectd) Influenza Type B (PCR) Not Detected (Not Detectd) RSV (PCR) Not Detected (Not Detectd) SARS-CoV-2 (PCR) Not Detected (Not Detectd) - EKG Data -: EKG Interpreted by Me EKG Comments: 12-lead Electrocardiogram Interpretation Note EKG was reviewed and interpreted by myself. 12-lead ECG performed at 0245 is interpreted by me as revealing normal sinus rhythm at a rate of 60 beats per minute. [place] is normal. GA interval is 166 ms, QRS duration is 120 ms, QTc is 408 ms.. There were no ST or T wave abnormalities to suggest myocardial ischemia or injury. R wave progression across the precordium was satisfactory. By my interpretation this EKG is non-diagnostic for acute ischemia. Critical Care Time Critical Care Time: Yes Total Critical Care Time: 35 Disposition Clinical Impression: COPD (chronic obstructive pulmonary disease), Hypoxic respiratory failure, Tracheobronchitis Disposition: ADMITTED IP TO THIS HOSP Condition: Serious Time of Disposition: 04:35
[2023-08-30 03:21] LABS: INR 0.9 (<1.2); Partial Thromboplastin Time 24.3 sec (22.0-30.0); Prothrombin Time 10.3 sec (10.0-12.5)
[2023-08-30] MEDS ORDERED: ONDANSETRON 4 MG/2 ML VIAL IVP PRN (04:35)
[2023-08-30] MEDS ORDERED: ACETAMINOPHEN TAB 325 MG TAB PO PRN (04:35)
[2023-08-30] MEDS ORDERED: NALOXONE 0.4 MG/ML 1 ML VIAL IV PRN (04:35)
--- NOTE | 2023-08-30 05:05 | P.HPIM ---
History of Present Illness H&P Date: 08/30/23 Patient is a 68-year-old male with a PMH of CAD status post CABG, COPD, hypertension, hyperlipidemia who presents to the emergency room with complaints of shortness of breath and cough. Patient notes that over the past 2 days, he has been experiencing gradually worsening shortness of breath with cough productive of yellow-green phlegm. Reports that his symptoms are similar to his prior exacerbations of COPD. Denies experiencing chest discomfort, fever, chills, nausea, vomiting, diaphoresis, or dizziness. Chest x-ray in the emergency room revealed no acute abnormalities as reviewed by me and with the ED provider. EKG revealed sinus rhythm with sinus arrhythmia at 60 bpm as reviewed by me. Laboratory evaluation was remarkable for thrombocytopenia of 126 glucose 127 and respiratory viral panel unremarkable. The patient's SpO2 was 93% on 2 L nasal cannula oxygen in the emergency room. ED documentation reviewed and case discussed with ED provider. Review of systems: Pertinent positives and negatives as discussed in HPI, a complete review of systems was performed and all other systems are negative. Physical examination: Vital signs reviewed General: non toxic, no distress, appears at stated age, overweight Derm: no unusual rashes/lesions, warm Head: atraumatic, normocephalic, symmetric Eyes: EOMI, no lid lag, anicteric sclera, pupils equal round reactive to light ENT: Nose and ears atraumatic Neck: No cervical lymphadenopathy, trachea midline, supple Mouth: no lip lesion, mucus membranes moist Cardiovascular: S1S2 reg, no murmur, positive dorsalis pedis pulse bilateral, no edema Lungs: Diminished air entry bilaterally without wheezing, rhonchi, or rales, no accessory muscle use Abdominal: soft, nontender to palpation, no guarding Ext: muscle strength 5 out of 5 in all 4 extremities grossly, no gross muscle atrophy, no contractures, Neuro: CN II-XI grossly intact, no gross focal neuro deficits Psych: Alert, oriented, appropriate affect Assessment: COPD with acute exacerbation Thrombocytopenia, at baseline Chronic conditions: CAD status post CABG, hypertension, hyperlipidemia Imaging: Chest x-ray in the emergency room revealed no acute abnormalities as reviewed with the ED provider. EKG revealed sinus rhythm with sinus arrhythmia at 60 bpm as reviewed by me. Data Review: Laboratory evaluation was remarkable for thrombocytopenia of 126 glucose 127 and respiratory viral panel unremarkable. Plan: Continue with the DuoNeb [id number] and as needed Continue Solu-Medrol 40 mg IV every 12 hourly Continue with azithromycin 250 mg p.o. daily Continue home medications including Imdur, Plavix, Coreg, Lipitor, and Norvasc Pulmonary consulted Follow-up blood cultures and procalcitonin levels Cardiac monitoring Insulin sliding scale and blood glucose monitoring DVT prophylaxis: Lovenox subcu The patient is admitted with an anticipated [] than 2 midnight stay for evaluation of [] CODE STATUS: Full Code Discussed with: Patient Anticipated discharge place: Home Past Medical History Past Medical History: Cancer, Chest Pain / Angina, COPD, CVA/TIA, Hyperlipidemia, Hypertension, Myocardial Infarction ([place]), Osteoarthritis (OA) Additional Past Medical History / Comment(s): generalized fatigue, unable to walk distance,SOB, CVA-several yrs. ago-post carotid endarterectomy-no residual effects Last Myocardial Infarction Date:: 2012 History of Any Multi-Drug Resistant Organisms: None Reported Past Surgical History: Coronary Bypass/CABG, Heart Catheterization Additional Past Surgical History / Comment(s): earlene. carotid endarterectomy, triple bypass 2012, diaphragm repair post CABG, fem-fem. bypass, Cryoablation of right renal tumor- approximately 2009 at [facility] Past Anesthesia/Blood Transfusion Reactions: No Reported Reaction Past Psychological History: Anxiety, Bipolar Smoking Status: Current every day smoker Past Alcohol Use History: Occasional Past Drug Use History: None Reported - Past Family History Mother Family Medical History: Cancer Medications and Allergies Home Medications Medication Instructions Recorded Confirmed Type Aspirin 81 mg PO DAILY 04/04/16 12/23/20 History Clopidogrel [Plavix] 75 mg PO DAILY 04/04/16 12/23/20 History Nitroglycerin Sl Tabs [Nitrostat] 0.4 mg SUBLINGUAL Q5M PRN 04/04/16 12/23/20 History Sertraline HCl [Zoloft] 100 mg PO BID 04/04/16 12/23/20 History Rosuvastatin Calcium [Crestor] 40 mg PO DAILY 03/28/20 12/23/20 History Isosorbide Mononitrate ER [Imdur] 30 mg PO DAILY 30 Days #30 04/01/20 12/23/20 Rx tab.er.24h amLODIPine [Norvasc] 5 mg PO DAILY 30 Days #30 tab 12/02/20 08/25/21 Rx carvediloL [Coreg*] 25 mg PO BID-W/MEALS 30 Days #120 04/01/20 12/23/20 Rx tab Folic Acid 0.8 mg PO DAILY 12/23/20 12/23/20 History Allergies Allergy/AdvReac Type Severity Reaction Status Date / Time No Known Allergies Allergy Verified 08/30/23 02:23 Physical Exam Vitals: Vital Signs Temp Pulse Resp BP Pulse Ox 08/30/23 04:00 98.5 F 58 L 18 128/70 93 L 08/30/23 03:41 61 20 124/59 94 L 08/30/23 03:11 68 08/30/23 03:01 72 08/30/23 03:00 72 08/30/23 02:50 73 08/30/23 02:19 97.8 F 89 24 182/79 88 L Intake and Output 08/29/23 08/29/23 08/30/23 14:59 22:59 06:59 Other: Weight 105.233 kg Results CBC & Chem 7: 08/30/23 02:25 08/30/23 02:25 Labs: Abnormal Lab Results - Last 24 Hours (Table) 08/30/23 08/30/23 Range/Units 02:25 02:25 Plt Count 126 L (150-450) k/uL Glucose 127 H (74-99) mg/dL
[2023-08-30] MEDS: AZITHROMYCIN 500 MG in SODIUM CHLORIDE 0.9% 250 ML IVPB STA (05:52)
[2023-08-30 06:06] LABS: Glucose,Whole Blood 140 mg/dL (70-110)
[2023-08-30] MEDS ORDERED: RX INFO: IV CONTRAST WAS GIVEN 1 EACH MISC MISCELLANE PRN (06:37)
--- NOTE | 2023-08-30 07:02 | P.CNPUL ---
History of Present Illness Consult date: 08/30/23 Requesting physician: Cedric Lahtam Reason for consult: COPD Chief complaint: Shortness of breath with associated productive cough x 2 days History of present illness: Patient is a 68-year-old white male with past medical history significant for COPD, chronic ongoing tobacco dependence, coronary artery disease with previous CABG and redo, left hemidiaphragm paralysis status/post plication, hypertension, hyperlipidemia, CVA/TIA, carotid artery stenosis status/post bilateral carotid endarterectomy, among other things. He follows at the [email or web address] for his primary care needs. His COPD is usually well-controlled. He believes he takes it a fluorescent green Diskus, possibly Incruse Ellipta and as needed albuterol inhaler. No recent hospitalizations for COPD. He has been smoking approximately 1 pack/day, however, not able to tolerate smoking over the last 2 days. He does state that he he was told that he had a "spot "on his right lung, almost a year ago, but has not had any follow-up. He was suppose to follow up with the [facility]. Patient presented to the emergency room early this morning with the chief complaint of progressively worsening shortness of breath. There is an associated persistent cough with occasional yellow sputum production. Denies hemoptysis. Endorses chest tightness. Denies any fever. Denies any GI symptoms such as nausea, vomiting, diarrhea. Denies recent sick contacts. Denies recent travel. Denies any recent chest pain or radiation. He does state that he has occasional exertional angina, that is always controlled with sublingual nitroglycerin tabs, last episode was over a month ago. Denies any lower extremity swelling, heart palpitations, lightheadedness, syncopal events. CBC unremarkable. No leukocytosis. CMP also unremarkable. Negative for influenza, RSV, COVID. Currently the patient is sitting up in the bedside recliner, on 2 L/min nasal cannula, in no acute distress at rest. His COPD does appear active. He does have wheezing with auscultation. No obvious focal consolidations or evidence of pneumonia on chest x-ray. He was started on azithromycin in the emergency room. Also received a dose of Rocephin. Remains afebrile. Vital signs are stable. Review of Systems REVIEW OF SYSTEMS: CONSTITUTIONAL: Denies any recent significant weight loss or weight gain. EYES: Denies change in vision. EARS, NOSE, MOUTH, THROAT: Denies headaches, denies sore throat. CARDIOVASCULAR: See HPI RESPIRATORY: see HPI GASTROINTESTINAL: Denies change in appetite, abdominal pain, nausea and vomiting, or diarrhea GENITOURINARY: Denies hematuria, denies infections. MUSKULOSKELETAL: Denies pain, denies swelling. INTEGUMENTARY: Denies rash, denies eczema. NEUROLOGICAL: Denies recent memory loss, no recent seizure activity. PSYCHIATRIC: Denies anxiety, denies depression. HEMATOLOGIC/LYMPHATIC: Denies anemia, denies enlarged lymph node Past Medical History Past Medical History: Cancer, Chest Pain / Angina, COPD, CVA/TIA, Hyperlipidemia, Hypertension, Myocardial Infarction (CA), Osteoarthritis (OA) Additional Past Medical History / Comment(s): generalized fatigue, unable to walk distance,SOB, CVA-several yrs. ago-post carotid endarterectomy-no residual effects Last Myocardial Infarction Date:: 2012 History of Any Multi-Drug Resistant Organisms: None Reported Past Surgical History: Coronary Bypass/CABG, Heart Catheterization Additional Past Surgical History / Comment(s): earlene. carotid endarterectomy, triple bypass 2012, diaphragm repair post CABG, fem-fem. bypass, Cryoablation of right renal tumor- approximately 2009 at [facility] Past Anesthesia/Blood Transfusion Reactions: No Reported Reaction Past Psychological History: Anxiety, Bipolar Smoking Status: Current every day smoker Past Alcohol Use History: Occasional Past Drug Use History: None Reported - Past Family History Mother Family Medical History: Cancer Medications and Allergies Home Medications Medication Instructions Recorded Confirmed Type Aspirin 81 mg PO DAILY 04/04/16 12/23/20 History Clopidogrel [Plavix] 75 mg PO DAILY 04/04/16 12/23/20 History Nitroglycerin Sl Tabs [Nitrostat] 0.4 mg SUBLINGUAL Q5M PRN 04/04/16 12/23/20 History Sertraline HCl [Zoloft] 100 mg PO BID 04/04/16 12/23/20 History Rosuvastatin Calcium [Crestor] 40 mg PO DAILY 03/28/20 12/23/20 History Isosorbide Mononitrate ER [Imdur] 30 mg PO DAILY 30 Days #30 04/01/20 12/23/20 Rx tab.er.24h amLODIPine [Norvasc] 5 mg PO DAILY 30 Days #30 tab 04/01/20 12/23/20 Rx carvediloL [Coreg*] 25 mg PO BID-W/MEALS 30 Days #120 04/01/20 12/23/20 Rx tab Folic Acid 0.8 mg PO DAILY 12/23/20 12/23/20 History Allergies Allergy/AdvReac Type Severity Reaction Status Date / Time No Known Allergies Allergy Verified 08/30/23 02:23 Physical Exam Vitals: Vital Signs Temp Pulse Resp BP Pulse Ox 08/30/23 05:00 60 20 92 L 08/30/23 04:00 98.5 F 58 L 18 128/70 93 L 08/30/23 03:41 61 20 124/59 94 L 08/30/23 03:11 68 08/30/23 03:01 72 08/30/23 03:00 72 08/30/23 02:50 73 08/30/23 02:19 97.8 F 89 24 182/79 88 L Intake and Output 08/29/23 08/29/23 08/30/23 14:59 22:59 06:59 Other: Weight 105.233 kg GENERAL EXAM: Alert, 68-year-old white male, comfortable in no apparent distress. HEAD: Normocephalic and atraumatic EYES: Normal reaction of pupils, equal size. NOSE: Clear with pink turbinates. THROAT: No erythema or exudates. NECK: No masses, no JVD. CHEST: No chest wall deformity. LUNGS: Equal air entry with expiratory wheezes heard throughout and scattered rhonchi. On 2 L/min nasal cannula. No conversational dyspnea or accessory muscle use while at rest. CVS: S1 and S2 normal with no audible murmur, regular rhythm. No extra heart sounds ABDOMEN: No hepatosplenomegaly, active bowel sounds, no guarding or rigidity. SPINE: No scoliosis or deformity SKIN: No rashes CENTRAL NERVOUS SYSTEM: Mild flattening of left nasolabial fold, otherwise, neurological examination non-focal. Vision intact, tracks with conjugate gaze in all directions, tongue protrudes midline, normal articulation, no dysphasia, sensation intact, bilateral upper and lower extremity strength 5/5, no drift, no ataxia, patellar DTRs 2+ bilaterally. EXTREMITIES: There is no peripheral edema, clubbing, or cyanosis. Peripheral pulses are intact. Results - Laboratory Findings CBC and BMP: 08/30/23 02:25 08/30/23 02:25 PT/INR, D-dimer PT 10.3 sec (10.0-12.5) 08/30/23 02:25 INR 0.9 (<1.2) 08/30/23 02:25 Abnormal lab findings: Abnormal Labs 08/30/23 08/30/23 02:25 02:25 Plt Count 126 L Glucose 127 H - Diagnostic Findings Chest x-ray: image reviewed Assessment and Plan Assessment: Acute COPD exacerbation, chest x-ray does not show any focal infiltrates or evidence of pneumonia. Negative for influenza, RSV, COVID Acute hypoxemic respiratory failure, secondary to above Chronic ongoing tobacco dependence, smokes approximately 1 pack/day Reported history of right lung pulmonary nodule, without follow up History of left hemidiaphragm paralysis, status post plication Coronary artery disease, with previous CABG and redo Exertional angina, always relieved with PRN sublingual nitroglycerin tabs. History of hyperlipidemia History of hypertension History of CVA/TIA History of bilateral carotid artery stenosis, status post bilateral carotid endarterectomy Chronic thrombocytopenia Plan: Patient's medications, labs, chest x-ray reviewed Currently on 2 L/min nasal cannula Start patient on a combination of bronchodilators, Symbicort inhaler, and IV Solu-Medrol Patient was started on empiric antibiotics in the emergency room, continues on azithromycin Procalcitonin level pending. No focal infiltrates or evidence of pneumonia on chest x-ray Viral panel negative for influenza, RSV, COVID. Smoking cessation counseling performed. Patient has refused nicotine patch/replacement follow up chest CT to evaluate questionable pulmonary nodule We will continue to follow I have personally seen and examined the patient, performed the documentation and the assessment and plan as written. Number of minutes spent on the visit:20 Time with Patient: Greater than 30
--- NOTE | 2023-08-30 07:03 | XR ---
EXAM: XR Chest, 2 Views CLINICAL HISTORY: ITS.REASON XR Reason: difficulty breathing TECHNIQUE: Frontal and lateral views of the chest. COMPARISON: 12/22/22 FINDINGS: Lungs: Slight prominent lung markings in central vasculature. Streaky density in the left lung base likely atelectasis. Pleural space: Unremarkable. No pneumothorax. Heart: Cardiovascular silhouette is enlarged and unchanged. Mediastinum: Unremarkable. Normal mediastinal contour. Bones/joints: Status post median sternotomy. Degenerative changes in the spine. No acute fracture. Vasculature: Calcified tortuous thoracic aorta. IMPRESSION: 1. Stable cardiomegaly. 2. Mild vascular congestion/edema. 3. Left basilar atelectasis.
[2023-08-30 07:35] LABS: Glucose,Whole Blood 149 mg/dL (70-110)
--- NOTE | 2023-08-30 07:37 | CT ---
EXAMINATION TYPE: CT chest w con CT DLP: 518.2 mGycm, Automated exposure control for dose reduction was used. DATE OF EXAM: 08/30/2023 7:23 AM COMPARISON: CT abdomen pelvis 03/30/2020 CLINICAL INDICATION:Male, 68 years old with history of possible pulmonary nodule, pulmonary nodule TECHNIQUE: Multiple axial images were obtained through the chest. Sagittal and coronal reformats were created for review. Contrast used:100 mL of Isovue 300 with IV Contrast (None if empty) Oral contrast used: (None if empty) FINDINGS: LUNGS/ PLEURA: There is airspace opacities some of which extend towards the posterior aspect of the l ungs most pronounced in the right lower lung. No new or enlarging pulmonary nodules. Mild centrilobul ar emphysema changes. AIRWAY: Patent and unremarkable. HEART: The heart is enlarged size there is moderate severe coronary artery atherosclerosis. Aortic va lve calcifications. MEDIASTINUM: No gross evidence of adenopathy. VASCULATURE: No aortic aneurysm. MUSCULOSKELETAL: Moderate disc degeneration changes are present throughout the thoracolumbar spine. S ternotomy wires are present. SOFT TISSUES/LYMPH NODES: Unremarkable. LOWER NECK: No significant findings. UPPER ABDOMEN: Simple appearing renal cortical cysts. Nodular changes to the left adrenal gland. IMPRESSION: 1. Airspace opacities in the lung bases favored represent atelectasis, back in 2019 exam to lesser e xtent. If this concern for malignancy consider PET/CT. 2. Cardiomegaly with moderate to severe coronary artery atherosclerosis.
[2023-08-30] MEDS ORDERED: HEPARIN SODIUM,PORCINE 5,000 UNIT/ML 1 ML VIAL SQ SCH (08:00)
[2023-08-30] MEDS: IPRATROPIUM-ALBUTEROL 3 ML NEB INHALATION SCH (08:27)
[2023-08-30] MEDS: SYMBICORT 160-4.5 MCG INHALER INHALATION SCH (08:28)
[2023-08-30] MEDS: INSULIN ASPART (NovoLOG) 100 UNIT/ML VIAL SQ SCH (09:00)
[2023-08-30] MEDS ORDERED: methylPREDNISolone SOD SUCCI 40 MG/ML 1 ML VIAL IV SCH (09:00)
[2023-08-30] MEDS: CLOPIDOGREL 75 MG TAB PO SCH (09:10)
[2023-08-30] MEDS: methylPREDNISolone SOD SUCCI 40 MG/ML 1 ML VIAL IV SCH (09:11)
[2023-08-30] MEDS: ATORVASTATIN 80 MG TAB PO SCH (09:11)
[2023-08-30] MEDS: ENOXAPARIN 40 MG/0.4 ML SYRINGE SQ SCH (09:11)
[2023-08-30] MEDS: carvediloL 12.5 MG TAB PO SCH (09:11)
[2023-08-30] MEDS: ISOSORBIDE MONONITRATE ER 30 MG TAB.ER.24H PO SCH (09:11)
[2023-08-30] MEDS: amLODIPine 5 MG TAB PO SCH (09:11)
[2023-08-30 12:05] LABS: Glucose,Whole Blood 166 mg/dL (70-110)
[2023-08-30 17:08] LABS: Glucose,Whole Blood 179 mg/dL (70-110)
[2023-08-30 20:54] LABS: Glucose,Whole Blood 173 mg/dL (70-110)
[2023-08-31 07:06] LABS: Glucose,Whole Blood 170 mg/dL (70-110)
[2023-08-31] MEDS ORDERED: AZITHROMYCIN 500 MG TAB PO SCH (09:00)
[2023-08-31] MEDS: AZITHROMYCIN 250 MG TAB PO SCH (09:27)
[2023-08-31 10:38] LABS: Basophils # (A) 0.01 X 10*3/uL (0.00-0.10); Basophils % (A) 0.1 %; Eosinophils # (A) 0 X 10*3/uL (0.04-0.35); Eosinophils % (A) 0 %; HCT 46.5 % (39.6-50.0); HGB 15.2 g/dL (13.0-17.0); Lymphocytes # (A) 0.91 X 10*3/uL (0.90-5.00); MCH 29.9 pg (27.0-32.0); MCHC 32.7 g/dL (32.0-37.0); MCV 91.5 FL (80.0-97.0); Mean Platelet Volume 11.2 FL (9.5-12.2); Monocytes # (A) 0.21 X 10*3/uL (0.20-1.00); NRBC Per 100 WBC 0 X 10*3/uL (0.00-0.01); Neutrophils # (A) 5.86 X 10*3/uL (1.80-7.70); Neutrophils % (A) 83.5 %; Platelet Count 141 X 10*3/uL (140-440); RBC 5.08 X 10*6/uL (4.40-5.60); RDW 13.3 % (11.5-14.5); WBC 7.02 X 10*3/uL (4.50-10.00)
[2023-08-31 11:06] LABS: ALT 38 U/L (10-49); AST 25 U/L (14-35); Albumin 4.7 g/dL (3.8-4.9); Albumin/Globulin Ratio 1.57 Ratio (1.60-3.17); Alkaline Phosphatase 81 U/L (41-126); BUN/Creat Ratio 19.25 Ratio (12.00-20.00); Blood Urea Nitrogen 15.4 mg/dL (9.0-27.0); Calcium 9.4 mg/dL (8.7-10.3); Carbon Dioxide 28.3 mmol/L (21.6-31.8); Chloride 100 mmol/L (96-109); Glucose 166 mg/dL (70-110); Potassium 4.4 mmol/L (3.5-5.5); Sodium 141 mmol/L (135-145); Total Bilirubin 0.5 mg/dL (0.3-1.2); Total Protein 7.7 g/dL (6.2-8.2)
[2023-08-31 12:17] LABS: Glucose,Whole Blood 150 mg/dL (70-110)
--- NOTE | 2023-08-31 14:08 | P.CRDCN ---
History of Present Illness Consult date: 08/31/23 Reason for Consult (text): Elevated troponin History of present illness: History of present illness: This is a 68-year-old male who follows with cardiology at [facility] in [place] with past medical history of coronary artery disease status post CABG with BENITEZ to LAD, saphenous vein graft to PDA and diagonal in 2011, hypertension, hyperlip idemia, severe peripheral vascular disease, right renal cell carcinoma status post cryosurgery. We have been asked to evaluate the patient for elevated troponins. Patient states he presented to the hospital due to wheezing, cough and shortness of breath. He has been treated for acute COPD exacerbation. He is not on home oxygen therapy. He denies having any chest pain, no weight gain, no lower extremity edema. No lightheadedness dizziness or syncopal episodes. He states he is feeling a lot better since he arrived to the hospital. Regarding smoking, he quit 15 years ago and because his 3 years ago he started smoking again. He states he is planning to quit smoking permanently when he leaves the hospital. EKG sinus rhythm with nonspecific ST wave changes Chest x-ray: Stable cardiomegaly. Mild vascular congestion edema. Left basilar atelectasis. CT chest: Airspace opacities in the lung bases favored represent atelectasis. Cardiomegaly with moderate to severe coronary artery atherosclerosis. WBC 7, hemoglobin 15.2. Potassium 4.4, creatinine 0.8. proBNP 1310. Troponin is 0.05 and 0.071. Home cardiac medications: Amlodipine 5 mg daily, Coreg 12.5 mg twice daily, P lavix 75 mg daily, Imdur 30 mg daily, Crestor 40 mg daily. Echocardiogram performed 12/24/2020 reveals EF 45 to 50%, moderate concentric left ventricular hypertrophy, trace mitral regurgitation, trace tricuspid regurgitation. Cardiac catheterization performed 04/18/2012 in the setting of an acute non-ST elevated CA revealed 95% ostial LAD, 90% distal RCA, left circumflex and ramus okay. EF 60%. PAD status post femorofemoral bypass left to right. Review Of Systems: At the time of my exam: CONSTITUTIONAL: Denies fever or chills. HEENT: Denies blurred vision, vision changes, or eye pain. Denies hemoptysis CARDIOVASCULAR: Denies chest pain. Denies orthopnea. Denies PND. Denies palpitations RESPIRATORY: Reports improving shortness of breath. GASTROINTESTINAL: Denies abdominal pain. Denies nausea or vomiting. HEMATOLOGIC: Denies bleeding disorders. GENITOURINARY: Denies any blood in urine. SKIN: Denies pruitis. Denies rash. Physical examination: Gen: This is a 68-year-old male sitting at the edge of the bed in no acute distress. VS: reviewed, blood pressure 163/77, heart rate 73, pulse ox 95% on 2 L nasal cannula. HEENT: Head is atraumatic, normocephalic. Pupils equal, round. Sclerae is anicteric. NECK: Supple. No JVD. LUNGS: Expiratory wheezing. No intercostal retractions. HEART: Regular rate and rhythm. No murmur. ABDOMEN: Soft No tenderness. EXTREMITIES: No pedal edema. No calf tenderness. NEUROLOGICAL: Patient is awake, alert and oriented x3. Assessment: Acute hypoxic respiratory failure secondary to COPD exacerbation Elevated troponins of unclear etiology History of coronary artery disease with previous CABG Hypertension Dyslipidemia Active tobacco use and dependence History of CVA History of bilateral carotid artery stenosis status post endarterectomy's Peripheral vascular disease Plan: Resume patient's home cardiac medications Increase Coreg to 25 mg twice daily Obtain 2-D echocardiogram and Doppler study to assess cardiac structure and function Further recommendations to follow based upon clinical course Thank you kindly for this consultation. Nurse practitioner note has been reviewed, I agree with documented findings and plan of care. Patient was seen and examined. Past Medical History Past Medical History: Cancer, Chest Pain / Angina, COPD, CVA/TIA, Hyperlipidemia, Hypertension, Myocardial Infarction (CA), Osteoarthritis (OA) Additional Past Medical History / Comment(s): generalized fatigue, unable to walk distance,SOB, CVA-several yrs. ago-post carotid endarterectomy-no residual effects; Right kidney cancer Last Myocardial Infarction Date:: 2012 History of Any Multi-Drug Resistant Organisms: None Reported Past Surgical History: Coronary Bypass/CABG, Heart Catheterization Additional Past Surgical History / Comment(s): earlene. carotid endarterectomy, triple bypass 2012, diaphragm repair post CABG, fem-fem. bypass, Cryoablation of right renal tumor- approximately 2009 at [facility] Past Anesthesia/Blood Transfusion Reactions: No Reported Reaction Past Psychological History: Anxiety, Bipolar Smoking Status: Current every day smoker Past Alcohol Use History: Occasional Additional Past Alcohol Use History / Comment(s): quit smoking 2005, smoked for 40 yrs. started up again in July after his spouse Past Drug Use History: None Reported - Past Family History Mother Family Medical History: Cancer Medications and Allergies Home Medications Medication Instructions Recorded Confirmed Type Clopidogrel [Plavix] 75 mg PO DAILY 04/04/16 08/30/23 History Rosuvastatin Calcium [Crestor] 40 mg PO DAILY 03/28/20 08/30/23 History Isosorbide Mononitrate ER [Imdur] 30 mg PO DAILY 30 Days #30 04/01/20 08/30/23 Rx tab.er.24h amLODIPine [Norvasc] 5 mg PO DAILY 30 Days #30 tab 04/01/20 08/30/23 Rx Tiotropium Br/Olodaterol HCl 2 spray INHALATION RT-DAILY 08/30/23 08/30/23 History [Stiolto Respimat Inhal Cossayuna] carvediloL [Coreg] 12.5 mg PO BID 08/30/23 08/30/23 History Allergies Allergy/AdvReac Type Severity Reaction Status Date / Time No Known Allergies Allergy Verified 08/30/23 07:38 Physical Exam Vitals: Vital Signs Temp Pulse Pulse Resp BP BP Pulse Ox 08/31/23 08:20 76 08/31/23 08:12 76 08/31/23 07:00 97.5 F L 57 L 19 156/75 94 L 08/31/23 03:54 76 08/31/23 03:39 72 08/31/23 00:15 97.5 F L 69 16 162/72 95 08/30/23 23:55 75 08/30/23 23:45 70 08/30/23 22:58 72 18 147/82 92 L 08/30/23 20:53 80 08/30/23 20:43 78 08/30/23 17:20 76 18 149/79 94 L 08/30/23 15:57 74 18 173/70 93 L 08/30/23 15:17 71 16 08/30/23 15:07 75 08/30/23 13:00 70 18 122/60 94 L 08/30/23 11:47 65 18 Intake and Output 08/30/23 08/31/23 08/31/23 22:59 06:59 14:59 Intake Total 600 Balance 600 Intake: Oral 600 Other: Voiding Method Toilet Urinal # Voids 2 Weight 105.233 kg Results 08/31/23 06:44 08/31/23 06:44 Cardiac Enzymes 08/31/23 Range/Units 06:44 AST 25 (14-35) U/L CBC 08/31/23 Range/Units 06:44 WBC 7.02 (4.50-10.00) X 10*3/uL RBC 5.08 (4.40-5.60) X 10*6/uL Hgb 15.2 (13.0-17.0) g/dL Hct 46.5 (39.6-50.0) % Plt Count 141 (140-440) X 10*3/uL Comprehensive Metabolic Panel 08/31/23 Range/Units 06:44 Sodium 141 (135-145) mmol/L Potassium 4.4 (3.5-5.5) mmol/L Chloride 100 (96-109) mmol/L Carbon Dioxide 28.3 (21.6-31.8) mmol/L BUN 15.4 (9.0-27.0) mg/dL Creatinine 0.8 (0.6-1.5) mg/dL Glucose 166 H (70-110) mg/dL Calcium 9.4 (8.7-10.3) mg/dL AST 25 (14-35) U/L ALT 38 (10-49) U/L Alkaline Phosphatase 81 (41-126) U/L Total Protein 7.7 (6.2-8.2) g/dL Albumin 4.7 (3.8-4.9) g/dL Current Medications Generic Name Dose Route Start Last Admin Trade Name Freq PRN Reason Stop Dose Admin Acetaminophen 650 mg 08/30/23 04:35 Acetaminophen Tab 325 Mg Tab PO Q6HR PRN Mild Pain or Fever > 100.5 Albuterol/Ipratropium 3 ml 08/30/23 08:00 08/31/23 08:11 Ipratropium-Albuterol 3 Ml Neb INHALATION 3 ml RT-Q4H TERESA Administration Albuterol/Ipratropium 3 ml 08/30/23 05:04 Ipratropium-Albuterol 3 Ml Neb INHALATION RT-QID PRN Shortness Of Breath Or Wheezing Amlodipine Besylate 5 mg 08/30/23 09:00 08/31/23 08:38 Amlodipine 5 Mg Tab PO 5 mg DAILY TERESA Administration Atorvastatin Calcium 80 mg 08/30/23 09:00 08/31/23 08:37 Atorvastatin 80 Mg Tab PO 80 mg DAILY TERESA Administration Azithromycin 250 mg 08/31/23 09:00 08/31/23 09:27 Azithromycin 250 Mg Tab PO 09/03/23 09:01 250 mg DAILY TERESA Administration Protocol Budesonide/Formoterol Fumarate 2 puff 08/30/23 08:00 08/31/23 08:12 Symbicort 160-4.5 Mcg Inhaler INHALATION 2 puff RT-BID TERESA Administration Carvedilol 12.5 mg 08/30/23 07:30 08/31/23 08:37 Carvedilol 12.5 Mg Tab PO 12.5 mg BID-W/MEALS TERESA Administration Clopidogrel Bisulfate 75 mg 08/30/23 09:00 08/31/23 08:37 Clopidogrel 75 Mg Tab PO 75 mg DAILY TERESA Administration Enoxaparin Sodium 40 mg 08/30/23 09:00 08/31/23 08:36 Enoxaparin 40 Mg/0.4 Ml Syringe SQ 40 mg DAILY TERESA Administration Insulin Aspart 0 unit 08/30/23 07:30 08/31/23 08:36 Insulin Aspart (Novolog) 100 Unit/Ml Vial SQ 3 unit ACHS TERESA Administration Protocol Isosorbide Mononitrate 30 mg 08/30/23 09:00 08/31/23 08:36 Isosorbide Mononitrate Er 30 Mg Tab.Er.24h PO 30 mg DAILY TERESA Administration Methylprednisolone Sodium Succinate 40 mg 08/30/23 08:00 08/31/23 09:21 Methylprednisolone Sod Succi 40 Mg/Ml 1 Ml Vial IV 40 mg Q8HR TERESA Administration Miscellaneous Information 1 each 08/30/23 06:37 Rx Info: Iv Contrast Was Given 1 Each Misc MISCELLANE 09/01/23 06:37 DAILY PRN Per Protocol Naloxone HCl 0.2 mg 08/30/23 04:35 Naloxone 0.4 Mg/Ml 1 Ml Vial IV Q2M PRN Opioid Reversal Ondansetron HCl 4 mg 08/30/23 04:35 Ondansetron 4 Mg/2 Ml Vial IVP Q8HR PRN Nausea And Vomiting Intake and Output 05/01/24 05/02/24 05/02/24 22:59 06:59 14:59 Intake Total 600 Balance 600 Intake: Oral 600 Other: Voiding Method Toilet Urinal # Voids 2 Weight 105.233 kg 08/31/23 06:44 08/31/23 06:44
--- NOTE | 2023-08-31 15:29 | P.PN ---
Subjective Progress Note Date: 08/31/23 Principal diagnosis: Acute COPD exacerbation Patient is a 68-year-old white male with past medical history significant for COPD, chronic ongoing tobacco dependence, coronary artery disease with previous CABG and redo, left hemidiaphragm paralysis status/post plication, hypertension, hyperlipidemia, CVA/TIA, carotid artery stenosis status/post bilateral carotid endarterectomy, among other things. He follows at the [facility] for his primary care needs. His COPD is usually well-controlled. He believes he takes it a fluorescent green Diskus, possibly Incruse Ellipta and as needed albuterol inhaler. No recent hospitalizations for COPD. He has been smoking approximat sherie 1 pack/day, however, not able to tolerate smoking over the last 2 days. He does state that he he was told that he had a "spot "on his right lung, almost a year ago, but has not had any follow-up. He was suppose to follow up with the [facility]. Patient presented to the emergency room early this morning with the chief complaint of progressively worsening shortness of breath. There is an associated persistent cough with occasional yellow sputum production. Denies hemoptysis. Endorses chest tightness. Denies any fever. Denies any GI symptoms such as nausea, vomiting, diarrhea. Denies recent sick contacts. Denies recent travel. Denies any recent chest pain or radiation. He does state that he has occasional exertional angina, that is always controlled with sublingual nitroglycerin tabs, last episode was over a month ago. Denies any lower extremity swelling, heart palpitations, lightheadedness, syncopal events. CBC unremarkable. No leukocytosis. CMP also unremarkable. Negative for influenza, RSV, COVID. Currently the patient is sitting up in the bedside recliner, on 2 L/min nasal cannula, in no acute distress at rest. His COPD does appear active. He does have wheezing with auscultation. No obvious focal consolidations or evidence of pneumonia on chest x-ray. He was started on azithromycin in the emergency room. Also received a dose of Rocephin. Remains afebrile. Vital signs are stable. I am seeing this patient in follow-up today 08/31/2023 after being admitted for acute COPD exacerbation. He is a current 1 pack/day smoker. No other recent hospitalizations for COPD. Patient presented to emergency room yesterday with a chief complaint of progressively worsening shortness of breath, persistent cough with occasional sputum production, and chest tightness. He was started on a combination of DuoNebs, Symbicort inhaler, and high-dose IV steroids. He is currently sitting at the edge of the bed, on 2 L/min nasal cannula, in no obvious distress while at rest. Despite this he remains wheezy. His COPD is still active. CT of the chest was done yesterday, patient has questionable history of pulmonary nodule. I personally reviewed the imaging, opacities at the bases favored to represent bibasilar atelectasis. The patient has some background mild centrilobular emphysema. Patient's lab work was repeated. CBC and BMP are fairly unremarkable. No significant leukocytosis. Procalcitonin level was low at 0.04. Patient remains afebrile. Overall hemodynamically stable. Objective - Vital Signs Vital signs: Vital Signs Temp 97.5 F L 08/31/23 12:13 Pulse 73 08/31/23 12:13 Resp 17 08/31/23 12:13 BP 163/77 08/31/23 12:13 Pulse Ox 95 08/31/23 12:13 FiO2 Intake & Output 08/30/23 08/31/23 08/31/23 18:59 06:59 18:59 Intake Total 600 Balance 600 Weight 105.233 kg Intake: Oral 600 Other: Voiding Method Toilet Toilet Urinal Urinal # Voids 2 - Exam GENERAL EXAM: Alert, 68-year-old white male, comfortable in no apparent distress. HEAD: Normocephalic and atraumatic EYES: Normal reaction of pupils, equal size. NOSE: Clear with pink turbinates. THROAT: No erythema or exudates. NECK: No masses, no JVD. CHEST: No chest wall deformity. LUNGS: Equal air entry with expiratory wheezes heard throughout and scattered rhonchi. On 2 L/min nasal cannula. No conversational dyspnea or accessory muscle use while at rest. CVS: S1 and S2 normal with no audible murmur, regular rhythm. No extra heart sounds ABDOMEN: No hepatosplenomegaly, active bowel sounds, no guarding or rigidity. SPINE: No scoliosis or deformity SKIN: No rashes CENTRAL NERVOUS SYSTEM: Mild flattening of left nasolabial fold, otherwise, neurological examination non-focal. Vision intact, tracks with conjugate gaze in all directions, tongue protrudes midline, normal articulation, no dysphasia, sensation intact, bilateral upper and lower extremity strength 5/5, no drift, no ataxia, patellar DTRs 2+ bilaterally. EXTREMITIES: There is no peripheral edema, clubbing, or cyanosis. Peripheral pulses are intact - Labs CBC & Chem 7: 08/31/23 06:44 08/31/23 06:44 Labs: Abnormal Lab Results - Last 24 Hours (Table) 08/30/23 08/30/23 08/31/23 Range/Units 17:06 20:53 06:44 Eosinophils # 0 L (0.04-0.35) X 10*3/uL Anion Gap (4.00-12.00) mmol/L Glucose (70-110) mg/dL POC Glucose (mg/dL) 179 H 173 H (70-110) mg/dL Albumin/Globulin Ratio (1.60-3.17) Ratio 08/31/23 08/31/23 08/31/23 Range/Units 06:44 07:04 12:16 Eosinophils # (0.04-0.35) X 10*3/uL Anion Gap 12.70 H (4.00-12.00) mmol/L Glucose 166 H (70-110) mg/dL POC Glucose (mg/dL) 170 H 150 H (70-110) mg/dL Albumin/Globulin Ratio 1.57 L (1.60-3.17) Ratio Microbiology - Last 24 Hours (Table) 08/30/23 04:30 Blood Culture - Preliminary Blood 08/30/23 04:45 Blood Culture - Preliminary Blood Assessment and Plan Assessment: Acute COPD exacerbation, chest x-ray does not show any focal infiltrates or evidence of pneumonia. Negative for influenza, RSV, COVID. Acute hypoxemic respiratory failure, secondary to above Chronic ongoing tobacco dependence, smokes approximately 1 pack/day Reported history of right lung pulmonary nodule, without follow up, I did order a follow-up CT of the chest with contrast which demonstrated minimal bibasilar opacities, favored to represent atelectasis. No significant reported lymphadenopathy. The patient has some background mild centrilobular emphysema. History of left hemidiaphragm paralysis, status post plication Elevated troponins, thought to reflect supply/demand mismatch, cardiology is following Coronary artery disease, with previous CABG and redo Exertional angina, always relieved with PRN sublingual nitroglycerin tabs. History of hyperlipidemia History of hypertension History of CVA/TIA History of bilateral carotid artery stenosis, status post bilateral carotid endarterectomy Chronic thrombocytopenia Plan: Patient's medications, labs, chest x-ray reviewed Currently on 2 L/min nasal cannula Patient COPD remains in exacerbation, would likely benefit from another 24 to 48 hours of IV steroids, Symbicort inhaler, and DuoNebs [id number]. Chest CT findings discussed with patient. Continues on azithromycin. Procalcitonin level low at 0.04 No focal infiltrates or evidence of pneumonia on chest x-ray Viral panel negative for influenza, RSV, COVID. Cardiology consult was placed. Patient has a transthoracic echocardiogram pending. We will continue to follow I have personally seen and examined the patient, performed the documentation and the assessment and plan as written. Number of minutes spent on the visit:10 This is a joint evaluation that was done along with the nurse practitioner. Evaluation was done more than 20 minutes. The patient is responding to antibiotics and steroids and bronchodilators. He still he still needs 24 hours and inpatient treatment. Will continue to follow. Time with Patient: Less than 30
[2023-08-31] MEDS: carvediloL 12.5 MG TAB PO SCH (16:37)
--- NOTE | 2023-08-31 17:05 | P.PN ---
Subjective Progress Note Date: 08/31/23 Patient is a 68-year-old male with a PMH of CAD status post CABG, COPD, hypertension, hyperlipidemia who presents to the emergency room with complaints of shortness of breath and cough. Patient notes that over the past 2 days, he has been experiencing gradually worsening shortness of breath with cough pr oductive of yellow-green phlegm. Reports that his symptoms are similar to his prior exacerbations of COPD. Denies experiencing chest discomfort, fever, chills, nausea, vomiting, diaphoresis, or dizziness. Chest x-ray in the emergency room revealed no acute abnormalities as reviewed by me and with the ED provider. EKG revealed sinus rhythm with sinus arrhythmia at 60 bpm. Laboratory evaluation was remarkable for thrombocytopenia of 126 glucose 127 and respiratory viral panel unremarkable. The patient's SpO2 was 93% on 2 L nasal cannula oxygen in the emergency room. Started on bronochodilators and SoluMedrol. Antibiotics started. 08/30 Patient was seen and examined. 70% improved. He did desaturate to 87% with oxygen turned off this morning. CT opacities favoring atelectasis, cardiomegaly with severe CAD. Troponin 0.05, 0.071. Cardiology consulted, Coreg increased, Echo ordered. CBC unremarkable. CMP AG 12.7, glu 166. Procal 0.04. General: Nontoxic, no distress, appears at stated age Derm: Warm, dry Head: Atraumatic, normocephalic, symmetric Eyes: EOMI, no lid lag, anicteric sclera Mouth: No lip lesion, mucus membranes moist Cardiovascular: S1S2 reg, systolic murmur Lungs: CTA bilateral, no rhonchi, no rales, no accessory muscle use, supplemental oxygen Ext: No gross muscle atrophy, no edema, no contractures Neuro: no focal neuro deficits Psych: Alert, oriented, appropriate affect Acute hypoxic respiratory failure COPD with acute exacerbation: DuoNeb Q4H scheduled and QID PRN for SOB/wheezing. Azithromycin 250 mg PO QD x 4 days. Symbicrot 2 INH BID. SoluMedrol 40 mg IV Q8H. Supplemental O2 and wean. Pulmonary on board. Troponin elevation: Cardiology consulted, Echo ordered. Coreg 25 mg PO BID. Plavix 75 mg PO QD. Lipitor 80 mg PO QD. Chronic conditions: CAD status post CABG, hypertension, hyperlipidemia CODE STATUS: FULL CODE DVT Prophylaxis: [facility] Prophylaxis: Designated medical POA if patient is not able to make medical decisions for themselves: I have reviewed the following mgmt consultant notes: Pulmonary, Cardiology. I have reviewed the results of the following tests: CBC, CMP. I have ordered the following tests: Echo. I have discussed the care of this patient with the following independent historian: Family I have independently interpreted the following test below: I have discussed the management of this patient with the following physician: Objective - Vital Signs Vital signs: Vital Signs Temp 97.5 F L 08/31/23 12:13 Pulse 76 08/31/23 15:37 Resp 17 08/31/23 12:13 BP 163/77 08/31/23 12:13 Pulse Ox 95 08/31/23 12:13 FiO2 Intake & Output 08/30/23 08/31/23 08/31/23 18:59 06:59 18:59 Intake Total 600 Balance 600 Weight 105.233 kg Intake: Oral 600 Other: Voiding Method Toilet Toilet Urinal Urinal # Voids 2 - Labs CBC & Chem 7: 08/31/23 06:44 08/31/23 06:44 Labs: Abnormal Lab Results - Last 24 Hours (Table) 08/30/23 08/30/23 08/31/23 Range/Units 17:06 20:53 06:44 Eosinophils # 0 L (0.04-0.35) X 10*3/uL Anion Gap (4.00-12.00) mmol/L Glucose (70-110) mg/dL POC Glucose (mg/dL) 179 H 173 H (70-110) mg/dL Albumin/Globulin Ratio (1.60-3.17) Ratio 08/31/23 08/31/23 08/31/23 Range/Units 06:44 07:04 12:16 Eosinophils # (0.04-0.35) X 10*3/uL Anion Gap 12.70 H (4.00-12.00) mmol/L Glucose 166 H (70-110) mg/dL POC Glucose (mg/dL) 170 H 150 H (70-110) mg/dL Albumin/Globulin Ratio 1.57 L (1.60-3.17) Ratio Microbiology - Last 24 Hours (Table) 08/30/23 04:30 Blood Culture - Preliminary Blood 08/30/23 04:45 Blood Culture - Preliminary Blood
[2023-08-31 17:14] LABS: Glucose,Whole Blood 216 mg/dL (70-110)
[2023-08-31 20:17] LABS: Glucose,Whole Blood 206 mg/dL (70-110)
--- NOTE | 2023-09-01 07:01 | CA ---
Transthoracic Echo Report Name: Ke Bee Age: 68 Gender: M : 1955 Exam Date: 08/31/2023 11:25 Exam Location: [place] [facility] Ht (in): 71 Wt (lb): 232 Ordering Physician: Carmina Copeland MD Attending/Referring Phys: Nurse Specialist Alicia Nichole RDCS Procedure CPT: Indications: trop elevation Cardiac Hx: Technical Quality: Technically difficult study Contrast 1: Definity Total Dose (mL): 2 Contrast 2: Total Dose (mL): MEASUREMENTS (Male / Female) Normal Values 2D ECHO LV Diastolic Diameter PLAX 6.5 cm 4.2 - 5.9 / 3.9 - 5.3 cm LV Systolic Diameter PLAX 4.2 cm IVS Diastolic Thickness 1.4 cm 0.6 - 1.0 / 0.6 - 0.9 cm LVPW Diastolic Thickness 1.5 cm 0.6 - 1.0 / 0.6 - 0.9 cm LV Relative Wall Thickness 0.4 RV Internal Dim ED PLAX 4.0 cm LV Diastolic Volume MOD BP 161.2 cm??? 67 - 155 / 56 - 104 cm??? LV Systolic Volume MOD BP 123.7 cm??? 22 - 58 / 19 - 49 cm??? LV Ejection Fraction MOD BP 23.3 % >= 55 % LV Cardiac Index MOD BP 1081.3 cm???/min???m??? LV Diastolic Volume MOD 4C 214.8 cm??? LV Systolic Volume MOD 4C 202.5 cm??? LV Ejection Fraction MOD 4C 5.7 % LV Cardiac Index MOD 4C 352.2 cm???/min???m??? LV Diastolic Length 4C 8.6 cm LV Systolic Length 4C 7.7 cm LV Diastolic Volume MOD 2C 119.0 cm??? LV Systolic Volume MOD 2C 71.5 cm??? LV Ejection Fraction MOD 2C 39.9 % LV Cardiac Index MOD 2C 1368.3 cm???/min???m??? LV Diastolic Length 2C 8.8 cm LV Systolic Length 2C 8.4 cm LA Volume 169.5 cm??? 18 - 58 / 22 - 52 cm??? LA Volume Index 72.9 cm???/m??? 16 - 28 cm???/m??? M-MODE LV Diastolic Diameter MM 6.9 cm 4.2 - 5.9 / 3.9 - 5.3 cm LV Systolic Diameter MM 6.0 cm LV Cardiac Index MM Teich 1910.5 cm???/min???m??? IVS Diastolic Thickness MM 1.1 cm 0.6 - 1.0 / 0.6 - 0.9 cm LVPW Diastolic Thickness MM 1.6 cm 0.6 - 1.0 / 0.6 - 0.9 cm LV Relative Wall Thickness MM 0.4 0.24 - 0.42 / 0.22 - 0.42 LV Mass Index MM 208.2 g/m??? 49 - 115 / 43 - 95 g/m??? Aortic Root Diameter MM 3.7 cm LA Systolic Diameter MM 5.7 cm LA Ao Ratio MM 1.5 AV Cusp Separation MM 1.9 cm DOPPLER AV Peak Velocity 127.8 cm/s AV Peak Gradient 6.5 mmHg AV Mean Velocity 95.2 cm/s AV Mean Gradient 3.9 mmHg AV Velocity Time Integral 26.8 cm LVOT Peak Velocity 88.4 cm/s LVOT Peak Gradient 3.1 mmHg LVOT Velocity Time Integral 19.9 cm MV Area PHT 2.7 cm??? Mitral E Point Velocity 56.1 cm/s Mitral A Point Velocity 47.8 cm/s Mitral E to A Ratio 1.2 MV Deceleration Time 279.1 ms MV E' Velocity 5.5 cm/s Mitral E to MV E' Ratio 10.2 FINDINGS Left Ventricle Severely increased left ventricular mass. Mildly increased left ventricular wall thickness. Moderate left ventricular dilatation. Reduced global left ventricular systolic function. Left ventricular ejection fraction is estimated at 25-30 %. Grade 2 diastolic dysfunction. Right Ventricle Right ventricular dilatation. Right ventricular systolic pressure within normal limits. Right Atrium Mild right atrial dilatation. Left Atrium Severely increased left atrial volume. Moderately increased left atrial area. Mitral Valve Structurally normal mitral valve. Mitral annular calcification. Moderate mitral regurgitation. Aortic Valve Trileaflet aortic valve. No aortic valve stenosis or regurgitation. Tricuspid Valve Structurally normal tricuspid valve. Mild tricuspid regurgitation. Pulmonic Valve Structurally normal pulmonic valve. Trace pulmonic regurgitation. Pericardium No pericardial effusion. Aorta Normal size aortic root and proximal ascending aorta. CONCLUSIONS Dilated LV. Impaired LV function with EF between 25-30% Moderate mitral regurgitation Normal pulmonary artery systolic pressure Previewed by: Dr. Harsh Lagos MD (Electronically Signed) Final Date: 01 Sep 2023 07:01
[2023-09-01 07:33] LABS: Glucose,Whole Blood 172 mg/dL (70-110)
[2023-09-01] MEDS: IPRATROPIUM-ALBUTEROL 3 ML NEB INHALATION SCH (08:39)
[2023-09-01] MEDS ORDERED: ALPRAZolam 0.5 MG TAB PO PRN (09:00)
[2023-09-01] MEDS ORDERED: ALPRAZolam 0.25 MG TAB PO PRN (09:00)
[2023-09-01] MEDS: ATORVASTATIN 80 MG TAB PO STA (09:11)
[2023-09-01] MEDS: SACUBITRIL/VALSARTAN 24 MG-26 MG TABLET PO SCH (10:01)
[2023-09-01] MEDS: ASPIRIN 325 MG TAB PO STA (10:01)
[2023-09-01] MEDS: DAPAGLIFLOZIN PROPANEDIOL 10 MG TABLET PO SCH (10:01)
--- NOTE | 2023-09-01 10:48 | P.PN ---
Subjective Progress Note Date: 09/01/23 Reason for Consult (text): Elevated troponin History of present illness: History of present illness: This is a 68-year-old male who follows with cardiology at [facility] in [place] with past medical history of coronary artery disease status post CABG with BENITEZ to LAD, saphenous vein graft to PDA and diagonal in 2011, hypertension, hyperlipidemia, severe peripheral vascular disease, right renal cell carcinoma status post cryosurgery. We have been asked to evaluate the patient for elevated troponins. Patient states he presented to the hospital due to wheezing, cough and shortness of breath. He has been treated for acute COPD exacerbation. He is not on home oxygen therapy. He denies having any chest pain, no weight gain, no lower extremity edema. No lightheadedness dizziness or syncopal episodes. He states he is feeling a lot better since he arrived to the hospital. Regarding smoking, he quit 15 years ago and because his 3 years ago he started smoking again. He states he is planning to quit smoking permanently when he leaves the hospital. EKG sinus rhythm with nonspecific ST wave changes Chest x-ray: Stable cardiomegaly. Mild vascular congestion edema. Left basilar atelectasis. CT chest: Airspace opacities in the lung bases favored represent atelectasis. Cardiomegaly with moderate to severe coronary artery atherosclerosis. WBC 7, hemoglobin 15.2. Potassium 4.4, creatinine 0.8. proBNP 1310. Troponin is 0.05 and 0.071. Home cardiac medications: Amlodipine 5 mg daily, Coreg 12.5 mg twice daily, Plavix 75 mg daily, Imdur 30 mg daily, Crestor 40 mg daily. Echocardiogram performed 12/24/2020 reveals EF 45 to 50%, moderate concentric left ventricular hypertrophy, trace mitral regurgitation, trace tricuspid regurgitation. Cardiac catheterization performed 04/18/2012 in the setting of an acute non-ST elevated IN revealed 95% ostial LAD, 90% distal RCA, left circumflex and ramus okay. EF 60%. PAD status post femorofemoral bypass left to right. 08/31 Patient is seen today in follow-up. He states he had a rough night due to his breathing but feels better now. He states he is able to lay flat. Reviewed with the patient the results of the echocardiogram. He is agreeable to move forward with cardiac catheterization today. Blood pressure 180/83, heart rate 76, pulse ox 95% on 2 L nasal cannula. Patient does not have home oxygen therapy. Echocardiogram reveals EF of 25 to 30%, dilated LV. Moderate mitral regurgitation, normal pulmonary artery systolic pressure. Physical examination: Gen: This is a 68-year-old male sitting at the edge of the bed in no acute distress. VS: reviewed, blood pressure 163/77, heart rate 73, pulse ox 95% on 2 L nasal cannula. HEENT: Head is atraumatic, normocephalic. Pupils equal, round. Sclerae is anicteric. NECK: Supple. No JVD. LUNGS: Expiratory wheezing. No intercostal retractions. HEART: Regular rate and rhythm. No murmur. ABDOMEN: Soft No tenderness. EXTREMITIES: No pedal edema. No calf tenderness. NEUROLOGICAL: Patient is awake, alert and oriented x3. Assessment: Acute hypoxic respiratory failure secondary to COPD exacerbation Mildly elevated troponins of unclear etiology New diagnosis of cardiomyopathy Moderate mitral regurgitation History of coronary artery disease with previous CABG Hypertension Dyslipidemia Active tobacco use and dependence History of CVA History of bilateral carotid artery stenosis status post endarterectomy's Peripheral vascular disease Plan: Continue patient's home cardiac medications Continue increased dose of Coreg 25 mg twice daily Add Entresto 24 mg-26 mg, Aldactone 25 mg daily, and Farxiga 10 mg daily Schedule patient for cardiac catheterization today with Dr. Lagos Further recommendations to follow based upon clinical course Nurse practitioner note has been reviewed, I agree with documented findings and plan of care. Patient was seen and examined. Objective - Vital Signs Vital signs: Vital Signs Temp 98 F 09/01/23 02:00 Pulse 76 09/01/23 08:57 Resp 16 09/01/23 02:00 BP 136/75 09/01/23 02:00 Pulse Ox 95 09/01/23 02:00 FiO2 Intake & Output 08/31/23 09/01/23 09/01/23 18:59 06:59 18:59 Intake Total 540 600 Balance 540 600 Intake: Oral 540 600 Other: Voiding Method Toilet Toilet Urinal # Voids 2 - Labs CBC & Chem 7: 08/31/23 06:44 08/31/23 06:44 Labs: Abnormal Lab Results - Last 24 Hours (Table) 08/31/23 08/31/23 08/31/23 Range/Units 06:44 06:44 12:16 Eosinophils # 0 L (0.04-0.35) X 10*3/uL Anion Gap 12.70 H (4.00-12.00) mmol/L Glucose 166 H (70-110) mg/dL POC Glucose (mg/dL) 150 H (70-110) mg/dL Albumin/Globulin Ratio 1.57 L (1.60-3.17) Ratio 08/31/23 08/31/23 09/01/23 Range/Units 17:08 20:15 07:31 Eosinophils # (0.04-0.35) X 10*3/uL Anion Gap (4.00-12.00) mmol/L Glucose (70-110) mg/dL POC Glucose (mg/dL) 216 H 206 H 172 H (70-110) mg/dL Albumin/Globulin Ratio (1.60-3.17) Ratio Microbiology - Last 24 Hours (Table) 08/30/23 04:30 Blood Culture - Preliminary Blood 08/30/23 04:45 Blood Culture - Preliminary Blood
[2023-09-01] MEDS: SODIUM CHLORIDE 0.9% 1,000 ML IV ONE (11:25)
[2023-09-01] MEDS: MIDAZOLAM 2 MG/2 ML VIAL IVP ONE (11:52)
[2023-09-01] MEDS: LIDOCAINE 1% INJ 10MG/ML (20 ML MDV) SQ ONE (12:01)
[2023-09-01] MEDS ORDERED: fentaNYL (PF) 50 MCG/ML 2 ML AMP ONE (12:02)
[2023-09-01] MEDS: fentaNYL (PF) 50 MCG/ML 2 ML AMP IVP ONE (12:04)
[2023-09-01] MEDS: IOPAMIDOL-370 100ML BTL INJ ONE ×2 (12:29→12:41)
[2023-09-01] MEDS ORDERED: RX INFO: IV CONTRAST WAS GIVEN 1 EACH MISC MISCELLANE PRN (12:44)
--- NOTE | 2023-09-01 12:50 | P.PCN ---
Date of Procedure: 09/01/23 Operative Findings: CARDIAC CATHETERIZATION PERFORMING PHYSICIAN: Harsh Lagos MD, RPVI PROCEDURE PERFORMED: 1. Selective right and left coronary angiogram and BENITEZ to LAD angiogram and SVG to ramus intermedius angiogram and SVG to PDA of RCA and PDA of LCx 2. Left heart catheterization 3. Ultrasound-guided access of the left common femoral artery and left common femoral artery angiogram INDICATION: Severe cardiomyopathy COMPLICATION: None APPROACH: Left common femoral artery LEVEL OF SEDATION: Moderate with sedation in length of 39 minutes PROCEDURE DESCRIPTION: After obtaining an informed consent, the patient was brought to cardiac optical laboratory mechanic. Local anesthesia was performed using lidocaine subcutaneously. Initially attempting cannulatin the right common femoral artery was unsuccessful because the wire did not go smoothly. At that point I decided to stop and access the left common femoral artery which has a better pulse. The left common femoral artery was cannulated using micropuncture technique under ultrasound guidance and micropuncture wire passed easily then I placed a 6 Panamanian 23 cm sheath at the left common femoral artery which was exchanged into 11 cm sheath by the end of the procedure Selective right and left coronary angiogram using a 6-Panamanian JR4 and JL catheters. The BENITEZ to LAD angiogram was performed using an IM catheter. The graft to PDA and OM angiogram was performed using JR4 catheter. The graft to ramus intermedius angiogram was performed using the JR4 catheter as well. Following that we did left heart catheterization using 6-Panamanian pigtail catheter. The procedure was completed there was no complication. SELECTIVE CORONARY ANGIOGRAM: The right coronary artery: Large-caliber vessel and a dominant vessel with a critical disease in the proximal and distal portion Left main: Heavily calcified with disease appears to be in the range of 50 to 60% The left circumflex: Large caliber vessel and codominant vessel. The mid left circumflex has a critical long tubular lesion The left anterior descending artery: Is occluded by the ostium from the left main Coronary bypasses angiogram: The BENITEZ to LAD is patent The graft to ramus intermedius is occluded The graft going to PDA of RCA and PDA of LCx is patent HEMODYNAMICS: The LVEDP was 19 mmHg with no significant gradient was identified across aortic valve CONCLUSION: 1. Severe triple-vessel coronary artery disease with heavily calcified right and left coronary system 2. Patent BENITEZ to LAD. Occluded graft to ramus intermedius. Patent graft going to PDA of RCA and PDA of LCx 3. Mildly elevated left-sided filling pressure POSTPROCEDURE MANAGEMENT: Given the above anatomy I would continue maximize medical treatment and risk factors modification. Continue medications for cardiomyopathy. Consider PCI of the left main to ramus intermedius if the patient becomes symptomatic but currently he is asymptomatic in terms of chest pain or chest discomfort
--- NOTE | 2023-09-01 12:52 | P.PN ---
Subjective Progress Note Date: 09/01/23 Patient is a 68-year-old male with a PMH of CAD status post CABG, COPD, hypertension, hyperlipidemia who presents to the emergency room with complaints of shortness of breath and cough. Patient notes that over the past 2 days, he has been experiencing gradually worsening shortness of breath with cough pr oductive of yellow-green phlegm. Reports that his symptoms are similar to his prior exacerbations of COPD. Denies experiencing chest discomfort, fever, chills, nausea, vomiting, diaphoresis, or dizziness. Chest x-ray in the emergency room revealed no acute abnormalities as reviewed by me and with the ED provider. EKG revealed sinus rhythm with sinus arrhythmia at 60 bpm. Laboratory evaluation was remarkable for thrombocytopenia of 126 glucose 127 and respiratory viral panel unremarkable. The patient's SpO2 was 93% on 2 L nasal cannula oxygen in the emergency room. Started on bronochodilators and SoluMedrol. Antibiotics started. 08/30 Patient was seen and examined. 70% improved. He did desaturate to 87% with oxygen turned off this morning. CT opacities favoring atelectasis, cardiomegaly with severe CAD. Troponin 0.05, 0.071. Cardiology consulted, Coreg increased, Echo ordered. CBC unremarkable. CMP AG 12.7, glu 166. Procal 0.04. 08/31 Patient was seen and examined. Patient reports feeling winded with ambulation. Repeat Trop 0.032. Echo shows EF 20-25% with G2DD. EF was 45-50% in 2020. Plans for cardiac cath today. General: Nontoxic, no distress, appears at stated age Derm: Warm, dry Head: Atraumatic, normocephalic, symmetric Eyes: EOMI, no lid lag, anicteric sclera Mouth: No lip lesion, mucus membranes moist Cardiovascular: S1S2 reg, systolic murmur Lungs: CTA bilateral, no rhonchi, no rales, no accessory muscle use, supplemental oxygen Ext: No gross muscle atrophy, no edema, no contractures Neuro: no focal neuro deficits Psych: Alert, oriented, appropriate affect Acute hypoxic respiratory failure COPD with acute exacerbation: DuoNeb Q4H scheduled and QID PRN for SOB/wheezing. Azithromycin 250 mg PO QD x 4 days. Symbicrot 2 INH BID. SoluMedrol 40 mg IV Q8H. Supplemental O2 and wean. Pulmonary on board. Troponin elevation: ACS ruled out. Cardiology consulted, cardiac cath today. Echo as above. Coreg 25 mg PO BID. Plavix 75 mg PO QD. Lipitor 80 mg PO QD. HFrEF: Coreg as above. Started on Farxiga 10 mg PO QD, Aldactone 25 mg PO QD, Entresto 1 tab PO BID. Chronic conditions: CAD status post CABG, hypertension, hyperlipidemia CODE STATUS: FULL CODE DVT Prophylaxis: [facility] Prophylaxis: Designated medical POA if patient is not able to make medical decisions for themselves: I have reviewed the following specification consultant notes: Pulmonary, Cardiology. I have reviewed the results of the following tests: Trop. Echo. I have ordered the following tests: BMP. I have discussed the care of this patient with the following independent historian: , RN I have independently interpreted the following test below: I have discussed the management of this patient with the following physician: Objective - Vital Signs Vital signs: Vital Signs Temp 97.7 F 09/01/23 07:27 Pulse 76 09/01/23 08:57 Resp 20 09/01/23 08:45 BP 180/83 09/01/23 07:27 Pulse Ox 95 09/01/23 07:27 FiO2 Intake & Output 08/31/23 09/01/23 09/01/23 18:59 06:59 18:59 Intake Total 540 600 100 Balance 540 600 100 Intake: IV 100 Oral 540 600 Other: Voiding Method Toilet Toilet Toilet Urinal # Voids 2 2 - Labs CBC & Chem 7: 08/31/23 06:44 08/31/23 06:44 Labs: Abnormal Lab Results - Last 24 Hours (Table) 08/31/23 08/31/23 09/01/23 Range/Units 17:08 20:15 07:31 POC Glucose (mg/dL) 216 H 206 H 172 H (70-110) mg/dL Microbiology - Last 24 Hours (Table) 08/30/23 04:30 Blood Culture - Preliminary Blood 08/30/23 04:45 Blood Culture - Preliminary Blood
[2023-09-01] MEDS: SODIUM CHLORIDE 0.9% 1,000 ML IV SCH (13:33)
[2023-09-01 13:34] LABS: Glucose,Whole Blood 140 mg/dL (70-110)
--- NOTE | 2023-09-01 15:38 | P.PN ---
Subjective Progress Note Date: 09/01/23 Patient is a 68-year-old white male with past medical history significant for COPD, chronic ongoing tobacco dependence, coronary artery disease with previous CABG and redo, left hemidiaphragm paralysis status/post plication, hypertension, hyperlipidemia, CVA/TIA, carotid artery stenosis status/post bilateral carotid endarterectomy, among other things. He follows at the [facility] for his primary care needs. His COPD is usually well-controlled. He believes he takes it a fluorescent green Diskus, possibly Incruse Ellipta and as needed albuterol inhaler. No recent hospitalizations for COPD. He has been smoking approximately 1 pack/day, however, not able to tolerate smoking over the last 2 days. He does state that he he was told that he had a "spot "on his right lung, almost a year ago, but has not had any follow-up. He was suppose to follow up with the [facility]. Patient presented to the emergency room early this morning with the chief complaint of progressively worsening shortness of breath. There is an associated persistent cough with occasional yellow sputum production. Denies hemoptysis. Endorses chest tightness. Denies any fever. Denies any GI symptoms such as nausea, vomiting, diarrhea. Denies recent sick contacts. Denies recent travel. Denies any recent chest pain or radiation. He does state that he has occasional exertional angina, that is always controlled with sublingual nitroglycerin tabs, last episode was over a month ago. Denies any lower extremity swelling, heart palpitations, lightheadedness, syncopal events. CBC unremarkable. No leukocytosis. CMP also unremarkable. Negative for influenza, RSV, COVID. Currently the patient is sitting up in the bedside recliner, on 2 L/min nasal cannula, in no acute distress at rest. His COPD does appear active. He does have wheezing with auscultation. No obvious focal consolidations or evidence of pneumonia on chest x-ray. He was started on azithromycin in the emergency room. Also received a dose of Rocephin. Remains afebrile. Vital signs are stable. I am seeing this patient in follow-up today 08/31/2023 after being admitted for acute COPD exacerbation. He is a current 1 pack/day smoker. No other recent hospitalizations for COPD. Patient presented to emergency room yesterday with a chief complaint of progressively worsening shortness of breath, persistent cough with occasional sputum production, and chest tightness. He was started on a combination of DuoNebs, Symbicort inhaler, and high-dose IV steroids. He is currently sitting at the edge of the bed, on 2 L/min nasal cannula, in no obvious distress while at rest. Despite this he remains wheezy. His COPD is still active. CT of the chest was done yesterday, patient has questionable history of pulmonary nodule. I personally reviewed the imaging, opacities at the bases favored to represent bibasilar atelectasis. The patient has some background mild centrilobular emphysema. Patient's lab work was repeated. CBC and BMP are fairly unremarkable. No significant leukocytosis. Procalcitonin level was low at 0.04. Patient remains afebrile. Overall hemodynamically stable. On 09/01/2023, the patient is feeling well and less short of breath. He underwent a cardiac catheterization today and BENITEZ to LAD and a saphenous vein grafts were patent and the patient will be managed medically. In terms of his COPD exacerbation, he continues to be on bronchodilators. He is feeling less short of breath and his chest tightness is also improving. His viral screen was negative. He is known to undergo previous bypass surgery with redo surgery and the patient has elevation in the left hemidiaphragm that was plicated many years back at [facility]. Objective - Vital Signs Vital signs: Vital Signs Temp 97.7 F 09/01/23 07:27 Pulse 57 L 09/01/23 15:23 Resp 20 09/01/23 08:45 BP 180/83 09/01/23 07:27 Pulse Ox 95 09/01/23 07:27 FiO2 Intake & Output 08/31/23 09/01/23 09/01/23 18:59 06:59 18:59 Intake Total 540 600 100 Balance 540 600 100 Intake: IV 100 Oral 540 600 Other: Voiding Method Toilet Toilet Toilet Urinal # Voids 2 2 - Exam GENERAL EXAM: Alert, 68-year-old white male, comfortable in no apparent distress. HEAD: Normocephalic and atraumatic EYES: Normal reaction of pupils, equal size. NOSE: Clear with pink turbinates. THROAT: No erythema or exudates. NECK: No masses, no JVD. CHEST: No chest wall deformity. LUNGS: Equal air entry with expiratory wheezes heard throughout and scattered rhonchi. On 2 L/min nasal cannula. No conversational dyspnea or accessory muscle use while at rest. CVS: S1 and S2 normal with no audible murmur, regular rhythm. No extra heart sounds ABDOMEN: No hepatosplenomegaly, active bowel sounds, no guarding or rigidity. SPINE: No scoliosis or deformity SKIN: No rashes CENTRAL NERVOUS SYSTEM: Mild flattening of left nasolabial fold, otherwise, neurological examination non-focal. Vision intact, tracks with conjugate gaze in all directions, tongue protrudes midline, normal articulation, no dysphasia, sensation intact, bilateral upper and lower extremity strength 5/5, no drift, no ataxia, patellar DTRs 2+ bilaterally. EXTREMITIES: There is no peripheral edema, clubbing, or cyanosis. Peripheral pulses are intact - Labs CBC & Chem 7: 08/31/23 06:44 08/31/23 06:44 Labs: Abnormal Lab Results - Last 24 Hours (Table) 08/31/23 08/31/23 09/01/23 Range/Units 17:08 20:15 07:31 POC Glucose (mg/dL) 216 H 206 H 172 H (70-110) mg/dL 09/01/23 Range/Units 13:33 POC Glucose (mg/dL) 140 H (70-110) mg/dL Microbiology - Last 24 Hours (Table) 08/30/23 04:30 Blood Culture - Preliminary Blood 08/30/23 04:45 Blood Culture - Preliminary Blood Assessment and Plan Assessment: Acute COPD exacerbation, chest x-ray does not show any focal infiltrates or evidence of pneumonia. Negative for influenza, RSV, COVID. Acute hypoxemic respiratory failure, secondary to above Chronic ongoing tobacco dependence, smokes approximately 1 pack/day Reported history of right lung pulmonary nodule, without follow up, I did order a follow-up CT of the chest with contrast which demonstrated minimal bibasilar opacities, favored to represent atelectasis. No significant reported lymphadenopathy. The patient has some background mild centrilobular emphysema. History of left hemidiaphragm paralysis, status post plication Elevated troponins, thought to reflect supply/demand mismatch, cardiology is following Coronary artery disease, with previous CABG and redo Exertional angina, always relieved with PRN sublingual nitroglycerin tabs. History of hyperlipidemia History of hypertension History of CVA/TIA History of bilateral carotid artery stenosis, status post bilateral carotid endarterectomy Chronic thrombocytopenia Plan: Currently on 2 L/min nasal cannula Symbicort inhaler, and DuoNebs [id number]. Continues on azithromycin. Procalcitonin level low at 0.04 No focal infiltrates or evidence of pneumonia on chest x-ray Viral panel negative for influenza, RSV, COVID. The patient is doing much better. Cardiac catheterization was done in the results were favorable. Will continue optimizing his COPD. Possible discharge within next 24 to 48 hours as the patient is improving. Labs were reviewed. Cardiac catheterization was reviewed.
[2023-09-01 17:50] LABS: Glucose,Whole Blood 194 mg/dL (70-110)
[2023-09-01 20:20] LABS: Glucose,Whole Blood 196 mg/dL (70-110)
[2023-09-02 03:52] LABS: Chloride 103 mmol/L (98-107)
[2023-09-02 03:55] LABS: African American GFR (CKD) >90 (>60 ml/min/1.73 sqM); Anion Gap 5 mmol/L; Blood Urea Nitrogen 24 mg/dL (9-20); Calcium 8.5 mg/dL (8.4-10.2); Carbon Dioxide 30 mmol/L (22-30); Glucose 171 mg/dL (74-99); Non-African American GFR(CKD) >90 (>60 ml/min/1.73 sqM); Potassium 4.6 mmol/L (3.5-5.1); Sodium 138 mmol/L (137-145)
[2023-09-02 06:18] LABS: Glucose,Whole Blood 183 mg/dL (70-110)
[2023-09-02] MEDS ORDERED: HEPARIN SODIUM,PORCINE (1 ML) 2,500 UNIT in SODIUM CHLORIDE 0.9% 250 ML IRRIGATION PRN (07:00)
[2023-09-02] MEDS ORDERED: HEPARIN SODIUM,PORCINE 10,000 UNIT in SODIUM CHLORIDE 0.9% 1,000 ML IRRIGATION PRN (07:00)
[2023-09-02] MEDS: SPIRONOLACTONE 25 MG TAB PO SCH (09:22)
[2023-09-02] MEDS: ASPIRIN 81 MG PO SCH (09:23)
[2023-09-02 10:56] LABS: Glucose,Whole Blood 150 mg/dL (70-110)
--- NOTE | 2023-09-02 12:38 | P.PN ---
Subjective Progress Note Date: 09/02/23 Pleasant 68-year-old gentleman who follows with a methods analyst data processing at the [place] but has not been seen in at least a couple of years. He has a past medical history of CAD status post CABG with BENITEZ to the LAD, saphenous vein graft to PDA and diagonal in 2011, hypertension, hyperlipidemia, severe peripheral vascular disease, right renal cell carcinoma status post cryosurgery, COPD and smoking for which he quit many years ago but resumed after his 's 3 years ago. Presented to the emergency department with wheezing, cough and shortness of breath. Being treated for acute COPD exacerbation. Echocardiogram with Doppler study revealed an EF of 25 to 30% with dilated LV, moderate MR and normal PA pre ssure. He is subsequently underwent cardiac catheterization yesterday by Dr. Blair which revealed severe triple-vessel coronary artery disease with heavily calcified right and left coronary system, patent BENITEZ to LAD, occluded graft to ramus intermedius and patent graft going to the PDA of the RCA and PDA of the left circumflex. Given the anatomy he was recommended to continue maximize medical treatment and risk factor modification with possible consideration of PCI of the left main to the RI if he becomes symptomatic. Patient had been feeling well up until this morning. His breathing has been stable. He continues to have a productive cough with wheezing. He did develop an episode of chest discomfort. He says he has these episodes a few times a month and it is not anything new or different compared to his baseline. It occurred at rest and lasted about 20 minutes. The discomfort resolved on its own. EKG this morning done after the event showed no significant changes. He is currently on aspirin 81 mg p.o. daily, amlodipine 5 mg p.o. daily, atorvastatin 80 mg p.o. daily, carvedilol 25 mg p.o. twice daily, Plavix 75 mg p.o. daily, Farxiga 10 mg p.o. daily, isosorbide 30 mg p.o. daily, spironolactone 25 mg p.o. daily and Entresto 24-26 mg p.o. twice daily. Vital signs have been stable. Has had no discomfort while he has been up walking. Objective - Vital Signs Vital signs: Vital Signs Temp 97.5 F L 09/02/23 08:00 Pulse 60 09/02/23 09:06 Resp 16 09/02/23 08:00 BP 122/66 09/02/23 08:00 Pulse Ox 97 09/02/23 08:57 FiO2 Intake & Output 09/01/23 09/02/23 09/02/23 18:59 06:59 18:59 Intake Total 218 Output Total 700 300 Balance -482 -300 Intake: IV 100 Oral 118 Output: Urine 700 300 Other: Voiding Method Toilet # Voids 2 1 - Exam PHYSICAL EXAMINATION: HEENT: Head is atraumatic, normocephalic. Pupils equal, round. Neck is supple. There is no elevated jugular venous pressure. HEART EXAMINATION: Heart sounds regular, S1 and S2 normal. No murmur or gallop heard. CHEST EXAMINATION: Lungs reveal diminished air entry bilaterally with expiratory wheezing throughout. No chest wall tenderness is noted on palpation or with deep breathing. ABDOMEN: Soft, nontender. Bowel sounds are heard. No organomegaly noted. EXTREMITIES: Diminished peripheral pulses with no evidence of peripheral edema and no calf tenderness noted. Left femoral puncture site soft, clean, dry and intact without ecchymosis or hematoma. NEUROLOGIC patient is awake, alert and oriented x3. . - Labs CBC & Chem 7: 08/31/23 06:44 09/02/23 03:27 Labs: Abnormal Lab Results - Last 24 Hours (Table) 09/01/23 09/01/23 09/01/23 Range/Units 13:33 17:49 20:19 BUN (9-20) mg/dL Creatinine (0.66-1.25) mg/dL Glucose (74-99) mg/dL POC Glucose (mg/dL) 140 H 194 H 196 H (70-110) mg/dL 09/02/23 09/02/23 Range/Units 03:27 06:16 BUN 24 H (9-20) mg/dL Creatinine 0.63 L (0.66-1.25) mg/dL Glucose 171 H (74-99) mg/dL POC Glucose (mg/dL) 183 H (70-110) mg/dL Microbiology - Last 24 Hours (Table) 08/30/23 04:30 Blood Culture - Preliminary Blood 08/30/23 04:45 Blood Culture - Preliminary Blood Assessment and Plan Assessment: #1 CAD with prior CABG with occluded SVG to RI #2 acute hypoxic respiratory failure secondary to COPD exacerbation #3 cardiomyopathy, likely combination ischemic and nonischemic #4 moderate mitral regurgitation #5 hypertension #6 hyperlipidemia #7 nicotine dependence #8 history of CVA #9 PAD #10 history of bilateral carotid artery stenosis status post endarterectomy Plan: From cardiology's perspective we will discontinue amlodipine due to underlying cardiomyopathy and increase isosorbide to 60 mg daily. Continue maximized m edical therapy at this time. If the patient has no further complaints of chest discomfort he may be discharged home this afternoon. DRYWALL SPRAYER note has been reviewed, I agree with a documented findings and plan of care. Patient was seen and examined.
[2023-09-02] MEDS: ISOSORBIDE MONONITRATE ER 60 MG TAB.ER.24H PO SCH (13:03)
--- NOTE | 2023-09-02 14:38 | P.PN ---
Subjective Progress Note Date: 09/02/23 Patient is a 68-year-old white male with past medical history significant for COPD, chronic ongoing tobacco dependence, coronary artery disease with previous CABG and redo, left hemidiaphragm paralysis status/post plication, hypertension, hyperlipidemia, CVA/TIA, carotid artery stenosis status/post bilateral carotid endarterectomy, among other things. He follows at the [facility] for his primary care needs. His COPD is usually well-controlled. He believes he takes it a fluorescent green Diskus, possibly Incruse Ellipta and as needed albuterol inhaler. No recent hospitalizations for COPD. He has been smoking approximately 1 pack/day, however, not able to tolerate smoking over the last 2 days. He does state that he he was told that he had a "spot "on his right lung, almost a year ago, but has not had any follow-up. He was suppose to follow up with the [facility]. Patient presented to the emergency room early this morning with the chief complaint of progressively worsening shortness of breath. There is an associated persistent cough with occasional yellow sputum production. Denies hemoptysis. Endorses chest tightness. Denies any fever. Denies any GI symptoms such as nausea, vomiting, diarrhea. Denies recent sick contacts. Denies recent travel. Denies any recent chest pain or radiation. He does state that he has occasional exertional angina, that is always controlled with sublingual nitroglycerin tabs, last episode was over a month ago. Denies any lower extremity swelling, heart palpitations, lightheadedness, syncopal events. CBC unremarkable. No leukocytosis. CMP also unremarkable. Negative for influenza, RSV, COVID. Currently the patient is sitting up in the bedside recliner, on 2 L/min nasal cannula, in no acute distress at rest. His COPD does appear active. He does have wheezing with auscultation. No obvious focal consolidations or evidence of pneumonia on chest x-ray. He was started on azithromycin in the emergency room. Also received a dose of Rocephin. Remains afebrile. Vital signs are stable. I am seeing this patient in follow-up today 08/31/2023 after being admitted for acute COPD exacerbation. He is a current 1 pack/day smoker. No other recent hospitalizations for COPD. Patient presented to emergency room yesterday with a chief complaint of progressively worsening shortness of breath, persistent cough with occasional sputum production, and chest tightness. He was started on a combination of DuoNebs, Symbicort inhaler, and high-dose IV steroids. He is currently sitting at the edge of the bed, on 2 L/min nasal cannula, in no obvious distress while at rest. Despite this he remains wheezy. His COPD is still active. CT of the chest was done yesterday, patient has questionable history of pulmonary nodule. I personally reviewed the imaging, opacities at the bases favored to represent bibasilar atelectasis. The patient has some background mild centrilobular emphysema. Patient's lab work was repeated. CBC and BMP are fairly unremarkable. No significant leukocytosis. Procalcitonin level was low at 0.04. Patient remains afebrile. Overall hemodynamically stable. On 09/01/2023, the patient is feeling well and less short of breath. He underwent a cardiac catheterization today and BENITEZ to LAD and a saphenous vein grafts were patent and the patient will be managed medically. In terms of his COPD exacerbation, he continues to be on bronchodilators. He is feeling less short of breath and his chest tightness is also improving. His viral screen was negative. He is known to undergo previous bypass surgery with redo surgery and the patient has elevation in the left hemidiaphragm that was plicated many years back at [facility]. On 09/02/2023, the patient is less short of breath. No chest pain. No angina. No palpitation. No other complaints otherwise. BUN is 24 with a creatinine of 0.6 and a sodium levels at 138. The patient is ambulating. Cardiac catheterization was done yesterday and the patient was found to have nonocclusive disease. He is currently on aspirin. He is also on Lipitor 80 mg p.o. He is on Coreg 25 mg twice a day and Plavix 75 mg p.o. daily. He is also on a combination of Entresto, Aldactone and Imdur. He is currently on 3 L of O2 nasal cannula. Objective - Vital Signs Vital signs: Vital Signs Temp 97.5 F L 09/02/23 08:00 Pulse 56 L 09/02/23 11:39 Resp 16 09/02/23 09:23 BP 122/66 09/02/23 08:00 Pulse Ox 97 09/02/23 08:57 FiO2 Intake & Output 09/01/23 09/02/23 09/02/23 18:59 06:59 18:59 Intake Total 218 Output Total 700 300 Balance -482 -300 Intake: IV 100 Oral 118 Output: Urine 700 300 Other: Voiding Method Toilet Toilet # Voids 2 1 - Exam GENERAL EXAM: Alert, 68-year-old white male, comfortable in no apparent distress. HEAD: Normocephalic and atraumatic EYES: Normal reaction of pupils, equal size. NOSE: Clear with pink turbinates. THROAT: No erythema or exudates. NECK: No masses, no JVD. CHEST: No chest wall deformity. LUNGS: Equal air entry with expiratory wheezes heard throughout and scattered rhonchi. On 2 L/min nasal cannula. No conversational dyspnea or accessory muscle use while at rest. CVS: S1 and S2 normal with no audible murmur, regular rhythm. No extra heart sounds ABDOMEN: No hepatosplenomegaly, active bowel sounds, no guarding or rigidity. SPINE: No scoliosis or deformity SKIN: No rashes CENTRAL NERVOUS SYSTEM: Mild flattening of left nasolabial fold, otherwise, neurological examination non-focal. Vision intact, tracks with conjugate gaze in all directions, tongue protrudes midline, normal articulation, no dysphasia, sensation intact, bilateral upper and lower extremity strength 5/5, no drift, no ataxia, patellar DTRs 2+ bilaterally. EXTREMITIES: There is no peripheral edema, clubbing, or cyanosis. Peripheral pulses are intact - Labs CBC & Chem 7: 08/31/23 06:44 09/02/23 03:27 Labs: Abnormal Lab Results - Last 24 Hours (Table) 09/01/23 09/01/23 09/02/23 Range/Units 17:49 20:19 03:27 BUN 24 H (9-20) mg/dL Creatinine 0.63 L (0.66-1.25) mg/dL Glucose 171 H (74-99) mg/dL POC Glucose (mg/dL) 194 H 196 H (70-110) mg/dL 09/02/23 09/02/23 Range/Units 06:16 10:54 BUN (9-20) mg/dL Creatinine (0.66-1.25) mg/dL Glucose (74-99) mg/dL POC Glucose (mg/dL) 183 H 150 H (70-110) mg/dL Microbiology - Last 24 Hours (Table) 08/30/23 04:30 Blood Culture - Preliminary Blood 08/30/23 04:45 Blood Culture - Preliminary Blood Assessment and Plan Assessment: Acute COPD exacerbation, chest x-ray does not show any focal infiltrates or evidence of pneumonia. Negative for influenza, RSV, COVID. Clinically impro ving Acute hypoxemic respiratory failure, secondary to above Chronic ongoing tobacco dependence, smokes approximately 1 pack/day Reported history of right lung pulmonary nodule, without follow up, I did order a follow-up CT of the chest with contrast which demonstrated minimal bibasilar opacities, favored to represent atelectasis. No significant reported lymphadenopathy. The patient has some background mild centrilobular emphysema. History of left hemidiaphragm paralysis, status post plication CHF with impaired LV function, echocardiogram shows ejection fraction of 25 to 30% with grade 2 diastolic dysfunction. The patient is currently on Coreg 25 mg p.o. twice daily, Entresto was also added at a dose of 1 tablet a day in combination with Imdur and Farxiga., Elevated troponins, thought to reflect supply/demand mismatch, cardiology is following, cardiac catheterization was noted and nonocclusive disease was noted. BENITEZ and SVG grafts are patent. Coronary artery disease, with previous CABG and redo Exertional angina, always relieved with PRN sublingual nitroglycerin tabs. History of hyperlipidemia History of hypertension History of CVA/TIA History of bilateral carotid artery stenosis, status post bilateral carotid endarterectomy Chronic thrombocytopenia Plan: Currently on 3 L of oxygen by nasal cannula Symbicort inhaler, and DuoNebs [id number]. Continues on azithromycin. Procalcitonin level low at 0.04 No focal infiltrates or evidence of pneumonia on chest x-ray Viral panel negative for influenza, RSV, COVID. The patient is doing much better. Cardiac catheterization was done in the results were favorable. Will continue optimizing his COPD. Optimize CHF and the cardiac medication adjustments were noted Will continue to follow
--- NOTE | 2023-09-02 16:08 | P.PN ---
Subjective Progress Note Date: 09/02/23 Hospital Course: Patient is a 68-year-old male with a PMH of CAD status post CABG, COPD, hypert ension, hyperlipidemia who presents to the emergency room with complaints of shortness of breath and cough. Chest x-ray in the emergency room revealed no acute abnormalities. EKG revealed sinus rhythm with sinus arrhythmia at 60 bpm. Laboratory evaluation was remarkable for thrombocytopenia of 126 glucose 127 and respiratory viral panel unremarkable. The patient's SpO2 was 93% on 2 L nasal cannula oxygen in the emergency room.Started on bronochodilators and SoluMedrol. Antibiotics started. Pulmonology and cardiology consulted. Echocardiogram showed LVEF 20 to 25% with grade 2 diastolic dysfunction. Cardiac cath showed occluded left main to ramus intermedius, rest of the grafts were patent. Recommended medical management. Subjective: Seen and examined at bedside. No acute events overnight. Still having cough, nonproductive, complaining of occasional wheezing, still on supplemental oxygen. Pertinent positives and negatives as discussed above, a complete review of systems was performed and all other systems are negative. Vitals Signs Reviewed. General: Nontoxic, no distress, appears at stated age Derm: Warm, dry Head: Atraumatic, normocephalic, symmetric Eyes: EOMI, no lid lag, anicteric sclera Mouth: No lip lesion, mucus membranes moist Cardiovascular: S1S2 reg, no murmur Lungs: CTA bilateral, no rhonchi, no rales, no accessory muscle use Abdominal: Soft, nontender to palpation, no guarding, no appreciable organomegaly Ext: No gross muscle atrophy, no edema, no contractures Neuro: CN II-XI grossly intact, no focal neuro deficits Psych: Alert, oriented, appropriate affect Data Reviewed Today: Pertinent Labs: Creatinine 0.63, blood sugars range between 1 50-1 96 Imaging: No new imaging Assessment and Plan: Acute hypoxic respiratory failure COPD with acute exacerbation -DuoNeb Q4H scheduled and QID PRN for SOB/wheezing. Azithromycin 250 mg PO QD x 4 days. Symbicrot 2 INH BID. SoluMedrol 40 mg IV Q8H. Supplemental O2 and wean. Patient not on oxygen at home. -Pulmonology note reviewed, continue current management Ischemic cardiomyopathy Elevated troponin, ACS ruled Coronary artery disease status post CABG Hypertension Dyslipidemia -Cardiology note reviewed, amlodipine discontinued, isosorbide mononitrate increased to 60 mg daily, carvedilol 25 twice daily -Continue aspirin 81 mg, Plavix 75 daily, atorvastatin 80 mg, Entresto 24-26 twice daily, Aldactone 25 daily DVT ppx: Lovenox Code status: Full code Anticipated discharge place: Pending clinical course Anticipated discharge time: Pending clinical course Objective - Vital Signs Vital signs: Vital Signs Temp 97.6 F 09/02/23 14:00 Pulse 68 09/02/23 15:33 Resp 16 09/02/23 14:00 BP 122/65 09/02/23 14:00 Pulse Ox 96 09/02/23 14:00 FiO2 Intake & Output 09/01/23 09/02/23 09/02/23 18:59 06:59 18:59 Intake Total 218 Output Total 700 300 Balance -482 -300 Intake: IV 100 Oral 118 Output: Urine 700 300 Other: Voiding Method Toilet Toilet # Voids 2 1 - Labs CBC & Chem 7: 08/31/23 06:44 09/02/23 03:27 Labs: Abnormal Lab Results - Last 24 Hours (Table) 09/01/23 09/01/23 09/02/23 Range/Units 17:49 20:19 03:27 BUN 24 H (9-20) mg/dL Creatinine 0.63 L (0.66-1.25) mg/dL Glucose 171 H (74-99) mg/dL POC Glucose (mg/dL) 194 H 196 H (70-110) mg/dL 09/02/23 09/02/23 Range/Units 06:16 10:54 BUN (9-20) mg/dL Creatinine (0.66-1.25) mg/dL Glucose (74-99) mg/dL POC Glucose (mg/dL) 183 H 150 H (70-110) mg/dL Microbiology - Last 24 Hours (Table) 08/30/23 04:30 Blood Culture - Preliminary Blood 08/30/23 04:45 Blood Culture - Preliminary Blood
[2023-09-02] MEDS: NITROGLYCERIN SL TABS 0.4 MG TAB SUBLINGUAL PRN (16:14)
[2023-09-02 17:02] LABS: Glucose,Whole Blood 142 mg/dL (70-110)
[2023-09-02 20:32] LABS: Glucose,Whole Blood 208 mg/dL (70-110)
[2023-09-03] MEDS: IPRATROPIUM-ALBUTEROL 3 ML NEB INHALATION PRN (05:03)
[2023-09-03 06:39] LABS: Glucose,Whole Blood 166 mg/dL (70-110)
[2023-09-03] MEDS ORDERED: TEMAZEPAM 7.5 MG CAP PO PRN (09:17)
[2023-09-03 10:01] LABS: BUN/Creat Ratio 34.38 Ratio (12.00-20.00); Blood Urea Nitrogen 27.5 mg/dL (9.0-27.0); Glucose 173 mg/dL (70-110)
[2023-09-03 10:02] LABS: Calcium 8.8 mg/dL (8.7-10.3); Carbon Dioxide 25.9 mmol/L (21.6-31.8); Chloride 100 mmol/L (96-109); Magnesium 2.3 mg/dL (1.5-2.4); Potassium 4.7 mmol/L (3.5-5.5); Sodium 137 mmol/L (135-145)
[2023-09-03 11:14] LABS: Glucose,Whole Blood 160 mg/dL (70-110)
[2023-09-03] MEDS ORDERED: ZOLPIDEM 5 MG TAB PO PRN (11:19)
[2023-09-03] MEDS: FLUTICASONE 50MCG/SPRAY NASAL 16GM EA NOSTRIL SCH (11:23)
[2023-09-03] MEDS: LORATADINE 10 MG TAB PO SCH (11:23)
[2023-09-03] MEDS: guaiFENesin 600 MG TABLET.ER PO SCH (11:23)
--- NOTE | 2023-09-03 12:05 | P.PN ---
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 He has a past medical history of CAD status post CABG with BENITEZ to the LAD, saphenous vein graft to PDA and diagonal in 2011, hypertension, hyperlipidemia, severe peripheral vascular disease, right renal cell carcinoma status post cryosurgery, COPD and smoking for which he quit many years ago but resumed after his 's 3 years ago. Presented to the emergency department with wheezing, cough and shortness of breath. Being treated for acute COPD exacerbation. Echocardiogram with Doppler study revealed an EF of 25 to 30% with dilated LV, moderate MR and normal PA pre ssure. He is subsequently underwent cardiac catheterization yesterday by Dr. Blair which revealed severe triple-vessel coronary artery disease with heavily calcified right and left coronary system, patent BENITEZ to LAD, occluded graft to ramus intermedius and patent graft going to the PDA of the RCA and PDA of the left circumflex. Given the anatomy he was recommended to continue maximize medical treatment and risk factor modification with possible consideration of PCI of the left main to the RI if he becomes symptomatic. Patient had been feeling well up until this morning. His breathing has been stable. He continues to have a productive cough with wheezing. He did develop an episode of chest discomfort. He says he has these episodes a few times a month and it is not anything new or different compared to his baseline. It occurred at rest and lasted about 20 minutes. The discomfort resolved on its own. EKG this morning done after the event showed no significant changes. He is currently on aspirin 81 mg p.o. daily, amlodipine 5 mg p.o. daily, atorvastatin 80 mg p.o. daily, carvedilol 25 mg p.o. twice daily, Plavix 75 mg p.o. daily, Farxiga 10 mg p.o. daily, isosorbide 30 mg p.o. daily, spironolactone 25 mg p.o. daily and Entresto 24-26 mg p.o. twice daily. Vital signs have been stable. Has had no discomfort while he has been up walking. 09/03/2023 Was seen and examined resting comfortably in bed this morning. He had a brief episode of chest discomfort yesterday afternoon while resting in his chair that was relieved with 1 nitroglycerin. He has otherwise been chest pain-free since then. He continues to have a cough minimal sputum and his breathing is stable overall. Objective - Vital Signs Vital signs: Vital Signs Temp 97.5 F L 09/03/23 08:00 Pulse 53 L 09/03/23 08:00 Resp 16 09/03/23 08:00 BP 108/63 09/03/23 08:00 Pulse Ox 94 L 09/03/23 08:00 FiO2 Intake & Output 09/02/23 09/03/23 09/03/23 18:59 06:59 18:59 Intake Total 120 240 Output Total 300 Balance -180 240 Intake: Oral 120 240 Output: Urine 300 Other: Voiding Method Toilet Toilet - Exam PHYSICAL EXAMINATION: HEENT: Head is atraumatic, normocephalic. Pupils equal, round. Neck is supple. There is no elevated jugular venous pressure. HEART EXAMINATION: Heart sounds regular, S1 and S2 normal. No murmur or gallop heard. CHEST EXAMINATION: Lungs reveal diminished air entry bilaterally. No chest wall tenderness is noted on palpation or with deep breathing. ABDOMEN: Soft, nontender. Bowel sounds are heard. No organomegaly noted. EXTREMITIES: Diminished peripheral pulses with no evidence of peripheral edema and no calf tenderness noted. Left femoral puncture site soft, clean, dry and intact without ecchymosis or hematoma. NEUROLOGIC patient is awake, alert and oriented x3. . - Labs CBC & Chem 7: 08/31/23 06:44 09/03/23 05:53 Labs: Abnormal Lab Results - Last 24 Hours (Table) 09/02/23 09/02/23 09/02/23 Range/Units 10:54 17:00 20:30 POC Glucose (mg/dL) 150 H 142 H 208 H (70-110) mg/dL 09/03/23 Range/Units 06:37 POC Glucose (mg/dL) 166 H (70-110) mg/dL Microbiology - Last 24 Hours (Table) 08/30/23 04:30 Blood Culture - Preliminary Blood 08/30/23 04:45 Blood Culture - Preliminary Blood Assessment and Plan Assessment: #1 CAD with prior CABG with occluded SVG to RI #2 acute hypoxic respiratory failure secondary to COPD exacerbation #3 cardiomyopathy, likely combination ischemic and nonischemic #4 moderate mitral regurgitation #5 hypertension #6 hyperlipidemia #7 nicotine dependence #8 history of CVA #9 PAD #10 history of bilateral carotid artery stenosis status post endarterectomy Plan: From cardiology's perspective we will add Ranexa. Continue maximized medical therapy at this time. If the patient has no further complaints of chest discomfort he may be discharged home this afternoon. LEAD SOFTWARE DEVELOPMENT ENGINEER note has been reviewed, I agree with a documented findings and plan of care. Patient was seen and examined.
--- NOTE | 2023-09-03 12:52 | P.PN ---
Subjective Progress Note Date: 09/03/23 Patient is a 68-year-old white male with past medical history significant for COPD, chronic ongoing tobacco dependence, coronary artery disease with previous CABG and redo, left hemidiaphragm paralysis status/post plication, hypertension, hyperlipidemia, CVA/TIA, carotid artery stenosis status/post bilateral carotid endarterectomy, among other things. He follows at the [facility] for his primary care needs. His COPD is usually well-controlled. He believes he takes it a fluorescent green Diskus, possibly Incruse Ellipta and as needed albuterol inhaler. No recent hospitalizations for COPD. He has been smoking approximately 1 pack/day, however, not able to tolerate smoking over the last 2 days. He does state that he he was told that he had a "spot "on his right lung, almost a year ago, but has not had any follow-up. He was suppose to follow up with the [facility]. Patient presented to the emergency room early this morning with the chief complaint of progressively worsening shortness of breath. There is an associated persistent cough with occasional yellow sputum production. Denies hemoptysis. Endorses chest tightness. Denies any fever. Denies any GI symptoms such as nausea, vomiting, diarrhea. Denies recent sick contacts. Denies recent travel. Denies any recent chest pain or radiation. He does state that he has occasional exertional angina, that is always controlled with sublingual nitroglycerin tabs, last episode was over a month ago. Denies any lower extremity swelling, heart palpitations, lightheadedness, syncopal events. CBC unremarkable. No leukocytosis. CMP also unremarkable. Negative for influenza, RSV, COVID. Currently the patient is sitting up in the bedside recliner, on 2 L/min nasal cannula, in no acute distress at rest. His COPD does appear active. He does have wheezing with auscultation. No obvious focal consolidations or evidence of pneumonia on chest x-ray. He was started on azithromycin in the emergency room. Also received a dose of Rocephin. Remains afebrile. Vital signs are stable. I am seeing this patient in follow-up today 08/31/2023 after being admitted for acute COPD exacerbation. He is a current 1 pack/day smoker. No other recent hospitalizations for COPD. Patient presented to emergency room yesterday with a chief complaint of progressively worsening shortness of breath, persistent cough with occasional sputum production, and chest tightness. He was started on a combination of DuoNebs, Symbicort inhaler, and high-dose IV steroids. He is currently sitting at the edge of the bed, on 2 L/min nasal cannula, in no obvious distress while at rest. Despite this he remains wheezy. His COPD is still active. CT of the chest was done yesterday, patient has questionable history of pulmonary nodule. I personally reviewed the imaging, opacities at the bases favored to represent bibasilar atelectasis. The patient has some background mild centrilobular emphysema. Patient's lab work was repeated. CBC and BMP are fairly unremarkable. No significant leukocytosis. Procalcitonin level was low at 0.04. Patient remains afebrile. Overall hemodynamically stable. On 09/01/2023, the patient is feeling well and less short of breath. He underwent a cardiac catheterization today and BENITEZ to LAD and a saphenous vein grafts were patent and the patient will be managed medically. In terms of his COPD exacerbation, he continues to be on bronchodilators. He is feeling less short of breath and his chest tightness is also improving. His viral screen was negative. He is known to undergo previous bypass surgery with redo surgery and the patient has elevation in the left hemidiaphragm that was plicated many years back at [facility]. On 09/02/2023, the patient is less short of breath. No chest pain. No angina. No palpitation. No other complaints otherwise. BUN is 24 with a creatinine of 0.6 and a sodium levels at 138. The patient is ambulating. Cardiac catheterization was done yesterday and the patient was found to have nonocclusive disease. He is currently on aspirin. He is also on Lipitor 80 mg p.o. He is on Coreg 25 mg twice a day and Plavix 75 mg p.o. daily. He is also on a combination of Entresto, Aldactone and Imdur. He is currently on 3 L of O2 nasal cannula. 09/03/2023, the patient is experiencing some shortness of breath and he was bronchospastic and wheezy overnight. Otherwise, no other new complaints. No chest pain. He remains on bronchodilators. Remains on steroids. He does have some congestion and Mucinex will be added. BUN is at 27 and the creatinine is 0.8 and a sodium level of 137 and a potassium level is at 4.7. Objective - Vital Signs Vital signs: Vital Signs Temp 97.5 F L 09/03/23 08:00 Pulse 60 09/03/23 09:41 Resp 16 09/03/23 09:14 BP 108/63 09/03/23 08:00 Pulse Ox 92 L 09/03/23 09:23 FiO2 Intake & Output 09/02/23 09/03/23 09/03/23 18:59 06:59 18:59 Intake Total 120 240 Output Total 300 Balance -180 240 Intake: Oral 120 240 Output: Urine 300 Other: Voiding Method Toilet Toilet Toilet - Exam GENERAL EXAM: Alert, 68-year-old white male, comfortable in no apparent di stress. HEAD: Normocephalic and atraumatic EYES: Normal reaction of pupils, equal size. NOSE: Clear with pink turbinates. THROAT: No erythema or exudates. NECK: No masses, no JVD. CHEST: No chest wall deformity. LUNGS: Equal air entry with expiratory wheezes heard throughout and scattered rhonchi. On 2 L/min nasal cannula. No conversational dyspnea or accessory muscle use while at rest. CVS: S1 and S2 normal with no audible murmur, regular rhythm. No extra heart sounds ABDOMEN: No hepatosplenomegaly, active bowel sounds, no guarding or rigidity. SPINE: No scoliosis or deformity SKIN: No rashes CENTRAL NERVOUS SYSTEM: Mild flattening of left nasolabial fold, otherwise, neurological examination non-focal. Vision intact, tracks with conjugate gaze in all directions, tongue protrudes midline, normal articulation, no dysphasia, sensation intact, bilateral upper and lower extremity strength 5/5, no drift, no ataxia, patellar DTRs 2+ bilaterally. EXTREMITIES: There is no peripheral edema, clubbing, or cyanosis. Peripheral pulses are intact - Labs CBC & Chem 7: 08/31/23 06:44 09/03/23 05:53 Labs: Abnormal Lab Results - Last 24 Hours (Table) 09/02/23 09/02/23 09/03/23 Range/Units 17:00 20:30 05:53 BUN 27.5 H (9.0-27.0) mg/dL BUN/Creatinine Ratio 34.38 H (12.00-20.00) Ratio Glucose 173 H (70-110) mg/dL POC Glucose (mg/dL) 142 H 208 H (70-110) mg/dL 09/03/23 09/03/23 Range/Units 06:37 11:13 BUN (9.0-27.0) mg/dL BUN/Creatinine Ratio (12.00-20.00) Ratio Glucose (70-110) mg/dL POC Glucose (mg/dL) 166 H 160 H (70-110) mg/dL Microbiology - Last 24 Hours (Table) 08/30/23 04:30 Blood Culture - Preliminary Blood 08/30/23 04:45 Blood Culture - Preliminary Blood Assessment and Plan Assessment: Acute COPD exacerbation, chest x-ray does not show any focal infiltrates or evidence of pneumonia. Negative for influenza, RSV, COVID. Clinically improving Acute hypoxemic respiratory failure, secondary to above Chronic ongoing tobacco dependence, smokes approximately 1 pack/day Reported history of right lung pulmonary nodule, without follow up, I did order a follow-up CT of the chest with contrast which demonstrated minimal bibasilar opacities, favored to represent atelectasis. No significant reported lymphadenopathy. The patient has some background mild centrilobular emphysema. History of left hemidiaphragm paralysis, status post plication CHF with impaired LV function, echocardiogram shows ejection fraction of 25 to 30% with grade 2 diastolic dysfunction. The patient is currently on Coreg 25 mg p.o. twice daily, Entresto was also added at a dose of 1 tablet a day in combination with Imdur and Farxiga., Elevated troponins, thought to reflect supply/demand mismatch, cardiology is following, cardiac catheterization was noted and nonocclusive disease was noted. BENITEZ and SVG grafts are patent. Coronary artery disease, with previous CABG and redo Exertional angina, always relieved with PRN sublingual nitroglycerin tabs. History of hyperlipidemia History of hypertension History of CVA/TIA History of bilateral carotid artery stenosis, status post bilateral carotid endarterectomy Chronic thrombocytopenia Plan: Will benefit from bronchodilators and steroids and this will be continued We will add Mucinex Currently on 3 L of oxygen by nasal cannula Symbicort inhaler, and DuoNebs [id number]. Continues on azithromycin. Procalcitonin level low at 0.04 No focal infiltrates or evidence of pneumonia on chest x-ray Viral panel negative for influenza, RSV, COVID. The patient is doing much better. Cardiac catheterization was done in the results were favorable. Will continue optimizing his COPD. Optimize CHF and the cardiac medication adjustments were noted Will continue to follow
[2023-09-03] MEDS: guaiFENesin-DM 600/30MG 1 EACH TAB.ER.12H PO SCH (12:55)
[2023-09-03] MEDS: RANOLAZINE 500 MG TAB.ER.12H PO SCH (12:55)
--- NOTE | 2023-09-03 15:14 | P.PN ---
Subjective Progress Note Date: 09/03/23 (delayed charting seen at 0945) Patient is a 68-year-old male with known coronary artery disease status post CABG, COPD, hypertension, and dyslipidemia who initially presented with cough and shortness of breath. Patient was subsequently diagnosed with acute exacerbation of COPD. Patient seen and examined at bedside. He continues to have significant problems breathing. He reports shortness of breath both at rest and with ambulation associated with significant cough. He has not been able to sleep. He overall feels "terrible". He had chest pain again last night which was relieved with n itroglycerin. Vital signs reviewed General: Nontoxic, no distress, appears at stated age Cardiovascular: S1S2 reg, no murmur Lungs: Worse breath sounds bilateral with diffuse wheezing, no rhonchi, no rales, no accessory muscle use Abdominal: Soft, nontender to palpation, no guarding Ext: No gross muscle atrophy, no edema b/l lower extremities, no contractures Neuro: CN II-XI grossly intact, no focal neuro deficits Psych: Alert, oriented, appropriate affect Assessment/Plan: Acute exacerbation of COPD Acute hypoxic respiratory failure Insomnia -Pulmonary note reviewed: Continue with bronchodilators and steroids -Patient was not on oxygen on admission. [facility] Will attempt to wean O2 as able if not will need home O2 arranged. -Added Mucinex 600 mg oral twice daily, Tessalon Perles 100 mg 3 times daily -DuoNebs 4 times daily, Symbicort 2 puffs twice daily, albuterol as needed -Add Claritin 10 mg oral daily, Flonase twice daily -Restoril 7.5 mg as needed at night. HFrEF with EF 20 to 25% Ischemic cardiomyopathy the Elevated troponin, mild, not distant with ACS History of coronary artery disease status post CABG History of hypertension Dyslipidemia -Cardiology note reviewed: Add Ranexa continue with medical therapy. If no further complaints of chest discomfort okay for discharge -Aldactone 25 mg daily, Entresto 1 tablet twice daily, Farxiga 10 mg daily, Coreg 25 mg twice daily -Plavix 75 mg daily, Lipitor 80 mg daily, aspirin 81 mg daily, Ranexa 500 mg daily, Imdur 60 mg daily Chronic Prior CVA Carotid arterial disease History of right kidney cancer Imaging: None new Data Review: Labs reviewed today include basic metabolic profile which is unremarkable DVT prophylaxis: Lovenox Anticipated discharge date: 24 to [address]: Home This dictation was prepared using [employer] voice recognition software. Though every attempt is made to correct errors during dictation some may still exist. Objective - Vital Signs Vital signs: Vital Signs Temp 97.4 F L 09/03/23 14:00 Pulse 59 L 09/03/23 14:00 Resp 16 09/03/23 14:00 BP 122/70 09/03/23 14:00 Pulse Ox 92 L 09/03/23 14:00 FiO2 Intake & Output 09/02/23 09/03/23 09/03/23 18:59 06:59 18:59 Intake Total 120 358 Output Total 300 Balance -180 358 Intake: Oral 120 358 Output: Urine 300 Other: Voiding Method Toilet Toilet Toilet - Labs CBC & Chem 7: 08/31/23 06:44 09/03/23 05:53 Labs: Abnormal Lab Results - Last 24 Hours (Table) 09/02/23 09/02/23 09/03/23 Range/Units 17:00 20:30 05:53 BUN 27.5 H (9.0-27.0) mg/dL BUN/Creatinine Ratio 34.38 H (12.00-20.00) Ratio Glucose 173 H (70-110) mg/dL POC Glucose (mg/dL) 142 H 208 H (70-110) mg/dL 09/03/23 09/03/23 Range/Units 06:37 11:13 BUN (9.0-27.0) mg/dL BUN/Creatinine Ratio (12.00-20.00) Ratio Glucose (70-110) mg/dL POC Glucose (mg/dL) 166 H 160 H (70-110) mg/dL Microbiology - Last 24 Hours (Table) 08/30/23 04:30 Blood Culture - Preliminary Blood 08/30/23 04:45 Blood Culture - Preliminary Blood
[2023-09-03 16:42] LABS: Glucose,Whole Blood 157 mg/dL (70-110)
[2023-09-03 20:42] LABS: Glucose,Whole Blood 178 mg/dL (70-110)
[2023-09-03] MEDS: BENZONATATE 100 MG CAP PO PRN (21:38)
[2023-09-04 05:50] LABS: Glucose,Whole Blood 160 mg/dL (70-110)
--- NOTE | 2023-09-04 07:12 | P.PN ---
Subjective Progress Note Date: 09/04/23 Principal diagnosis: Coronary artery disease/cardiomyopathy The patient is a 68-year-old gentleman with coronary artery disease status post CABG as well as cardiomyopathy as well as hypertension and dyslipidemia and chronic obstructive pulmonary disease was admitted to the hospital with acute on chronic hypoxic respiratory failure and he was diagnosed with COPD exacerbation. He underwent an echo which revealed cardiomyopathy with EF around 30%. The heart catheterization was performed and showed patent BENITEZ to LAD and occluded SVG to ramus intermedius with patent SVG to PDA and OM. September 04, 2023 The patient was seen and evaluated this morning with he is feeling better. He is euvolemic on examination. He is on maximized medical treatment for coronary artery disease as well as cardiomyopathy. From the cardiovascular standpoint of view, the patient potentially can be discharged home and will be seen as an outpatient. His vitals are stable. The examination is remarkable for distant heart sounds with regular rhythm and diminished breathing sounds bilaterally and no edema was noted Assessment Coronary artery disease status post CABG as described above Cardiomyopathy Chronic obstructive pulmonary disease Multiple comorbid conditions Plan Continue the current medical regimen The patient potentially can be discharged home Objective - Vital Signs Vital signs: Vital Signs Temp 97.9 F 09/04/23 00:49 Pulse 68 09/04/23 03:07 Resp 18 09/04/23 00:49 BP 118/53 09/04/23 00:49 Pulse Ox 92 L 09/04/23 00:49 FiO2 Intake & Output 09/03/23 09/04/23 09/04/23 18:59 06:59 18:59 Intake Total 358 250 Balance 358 250 Intake: Oral 358 250 Other: Voiding Method Toilet Toilet # Voids 2 - Labs CBC & Chem 7: 08/31/23 06:44 09/03/23 05:53 Labs: Abnormal Lab Results - Last 24 Hours (Table) 09/03/23 09/03/23 09/03/23 Range/Units 05:53 11:13 16:40 BUN 27.5 H (9.0-27.0) mg/dL BUN/Creatinine Ratio 34.38 H (12.00-20.00) Ratio Glucose 173 H (70-110) mg/dL POC Glucose (mg/dL) 160 H 157 H (70-110) mg/dL 09/03/23 09/04/23 Range/Units 20:40 05:48 BUN (9.0-27.0) mg/dL BUN/Creatinine Ratio (12.00-20.00) Ratio Glucose (70-110) mg/dL POC Glucose (mg/dL) 178 H 160 H (70-110) mg/dL
[2023-09-04 08:16] VITALS: BP 150/79; RESP 16; TEMP 97.8
[2023-09-04] MEDS: predniSONE 20 MG TAB PO SCH (08:21)
[2023-09-04 11:20] VITALS: PULSE 65
--- NOTE | 2023-09-04 11:24 | P.DS ---
Providers Date of admission: 08/30/23 04:37 Expected date of discharge: 09/04/23 Attending physician: Kristal Scott MD Consults: 08/30/23 04:35 Consult Physician Routine Consulting Provider: Cristhian Mayes Consult Reason/Comments: copd, hypoxic resp failure Do you want consulting provider notified?: Yes 08/31/23 08:50 Consult Physician Routine Consulting Provider: Morgan Justin Consult Reason/Comments: troponin elevation Do you want consulting provider notified?: Yes Primary care physician: [facility] [place] [facility] Course: Discharge Diagnosis: Acute exacerbation of COPD Acute hypoxic respiratory failure Insomnia HFrEF with EF 20 to 25% Ischemic cardiomyopathy the Elevated troponin, mild, not consistent with ACS History of coronary artery disease status post CABG History of hypertension Dyslipidemia Chronic Prior CVA Carotid arterial disease History of right kidney cancer Hospital Course: Patient is a 68-year-old male with a PMH of CAD status post CABG, COPD, hypertension, hyperlipidemia who presents to the emergency room with complaints of shortness of breath and cough. Chest x-ray in the emergency room revealed no acute abnormalities. EKG revealed sinus rhythm with sinus arrhythmia at 60 bpm. Laboratory evaluation was remarkable for thrombocytopenia of 126 glucose 127 and respiratory viral panel unremarkable. The patient's SpO2 was 93% on 2 L nasal cannula oxygen in the emergency room.Started on bronochodilators and SoluMedrol. Antibiotics started. Pulmonology and cardiology consulted. Echocardiogram showed LVEF 20 to 25% with grade 2 diastolic dysfunction. Cardiac cath showed occluded left main to ramus intermedius, rest of the grafts were patent. Recommended medical management. Patient being discharged home with steroid taper along with guideline directed medical therapy for heart failure. Follow-up with pulmonology and cardiology. Does not qualify for oxygen at home. Patient seen and examined at bedside. Vital signs reviewed and stable. General: Nontoxic, no distress, appears at stated age Derm: Warm, dry Head: Atraumatic, normocephalic, symmetric Eyes: EOMI, no lid lag, anicteric sclera Mouth: No lip lesion, mucus membranes moist Cardiovascular: S1S2 reg, no murmur Lungs: CTA bilateral, no rhonchi, no rales, no accessory muscle use on supplemental oxygen Abdominal: Soft, nontender to palpation, no guarding, no appreciable organomegaly Ext: No gross muscle atrophy, no edema, no contractures Neuro: CN II-XI grossly intact, no focal neuro deficits Psych: Alert, oriented, appropriate affect A total of 33 minutes of time were spent preparing this complex discharge summary. Patient was discharged on 09/04/2023 at 1047. Patient Condition at Discharge: Stable Plan - Discharge Summary Discharge Rx Participant: No New Discharge Prescriptions: New Spironolactone [Aldactone] 25 mg PO DAILY #30 tab Aspirin 81 mg PO DAILY #60 tab Loratadine [Claritin] 10 mg PO DAILY #60 tab Isosorbide Mononitrate ER [Imdur] 60 mg PO DAILY #60 tab guaiFENesin-DM 600/30MG [Mucinex Dm] 2 each PO Q12HR PRN #20 tab PRN Reason: Cough Nitroglycerin Sl Tabs [Nitrostat] 0.4 mg SUBLINGUAL Q5M PRN #30 tab PRN Reason: Chest Pain Ranolazine [Ranexa] 500 mg PO Q12HR #60 tab Benzonatate [Tessalon Perles] 100 mg PO TID PRN #30 cap PRN Reason: Cough predniSONE [Deltasone] 40 mg PO DAILY #25 tab Sacubitril/Valsartan [Entresto 24 mg-26 mg Tablet] 1 each PO BID #60 tab Dapagliflozin Propanediol [Farxiga] 10 mg PO DAILY #60 tab Fluticasone Nasal [place] [Flonase Nasal [place]] 2 spray EA NOSTRIL DAILY #30 ml Continue Clopidogrel [Plavix] 75 mg PO DAILY Rosuvastatin Calcium [Crestor] 40 mg PO DAILY carvediloL [Coreg] 12.5 mg PO BID Tiotropium Br/Olodaterol HCl [Stiolto Respimat Inhal [place]] 2 spray INHALATION RT-DAILY Discontinued Isosorbide Mononitrate ER [Imdur] 30 mg PO DAILY 30 Days #30 tab.er.24h amLODIPine [Norvasc] 5 mg PO DAILY 30 Days #30 tab Discharge Medication List Clopidogrel [Plavix] 75 mg PO DAILY 04/04/16 [History] Rosuvastatin Calcium [Crestor] 40 mg PO DAILY 03/28/20 [History] Tiotropium Br/Olodaterol HCl [Stiolto Respimat Inhal [place]] 2 spray INHALATION RT-DAILY 08/30/23 [History] carvediloL [Coreg] 12.5 mg PO BID 08/30/23 [History] Aspirin 81 mg PO DAILY #60 tab 09/04/23 [Rx] Benzonatate [Tessalon Perles] 100 mg PO TID PRN #30 cap 09/04/23 [Rx] Dapagliflozin Propanediol [Farxiga] 10 mg PO DAILY #60 tab 09/04/23 [Rx] Fluticasone Nasal [place] [Flonase Nasal [place]] 2 spray EA NOSTRIL DAILY #30 ml 09/04/23 [Rx] Isosorbide Mononitrate ER [Imdur] 60 mg PO DAILY #60 tab 09/04/23 [Rx] Loratadine [Claritin] 10 mg PO DAILY #60 tab 09/04/23 [Rx] Nitroglycerin Sl Tabs [Nitrostat] 0.4 mg SUBLINGUAL Q5M PRN #30 tab 09/04/23 [Rx] Ranolazine [Ranexa] 500 mg PO Q12HR #60 tab 09/04/23 [Rx] Sacubitril/Valsartan [Entresto 24 mg-26 mg Tablet] 1 each PO BID #60 tab 09/04/23 [Rx] Spironolactone [Aldactone] 25 mg PO DAILY #30 tab 09/04/23 [Rx] guaiFENesin-DM 600/30MG [Mucinex Dm] 2 each PO Q12HR PRN #20 tab 09/04/23 [Rx] predniSONE [Deltasone] 40 mg PO DAILY #25 tab 09/04/23 [Rx] Follow up Appointment(s)/Referral(s): Harsh Lagos MD [STAFF PHYSICIAN] - 1 Week (Office said they will PT) Iaziah Mera DO [Primary Care Provider] - 1-2 days Cristhian Mayes MD [STAFF PHYSICIAN] - 09/11/23 8:45 am Patient Instructions/Handouts: Heart Failure (DC), Coronary Artery Disease (DC), COPD (Chronic Obstructive Pulmonary Disease) (DC) Discharge Disposition: HOME WITH HOME HEALTH SERVICES
[2023-09-04 11:46] LABS: Glucose,Whole Blood 159 mg/dL (70-110)
--- NOTE | 2023-09-04 12:53 | P.PN ---
Subjective Progress Note Date: 09/04/23 Patient is a 68-year-old white male with past medical history significant for COPD, chronic ongoing tobacco dependence, coronary artery disease with previous CABG and redo, left hemidiaphragm paralysis status/post plication, hypertension, hyperlipidemia, CVA/TIA, carotid artery stenosis status/post bilateral carotid endarterectomy, among other things. He follows at the [facility] for his primary care needs. His COPD is usually well-controlled. He believes he takes it a fluorescent green Diskus, possibly Incruse Ellipta and as needed albuterol inhaler. No recent hospitalizations for COPD. He has been smoking approximately 1 pack/day, however, not able to tolerate smoking over the last 2 days. He does state that he he was told that he had a "spot "on his right lung, almost a year ago, but has not had any follow-up. He was suppose to follow up with the [facility]. Patient presented to the emergency room early this morning with the chief complaint of progressively worsening shortness of breath. There is an associated persistent cough with occasional yellow sputum production. Denies hemoptysis. Endorses chest tightness. Denies any fever. Denies any GI symptoms such as nausea, vomiting, diarrhea. Denies recent sick contacts. Denies recent travel. Denies any recent chest pain or radiation. He does state that he has occasional exertional angina, that is always controlled with sublingual nitroglycerin tabs, last episode was over a month ago. Denies any lower extremity swelling, heart palpitations, lightheadedness, syncopal events. CBC unremarkable. No leukocytosis. CMP also unremarkable. Negative for influenza, RSV, COVID. Currently the patient is sitting up in the bedside recliner, on 2 L/min nasal cannula, in no acute distress at rest. His COPD does appear active. He does have wheezing with auscultation. No obvious focal consolidations or evidence of pneumonia on chest x-ray. He was started on azithromycin in the emergency room. Also received a dose of Rocephin. Remains afebrile. Vital signs are stable. I am seeing this patient in follow-up today 08/31/2023 after being admitted for acute COPD exacerbation. He is a current 1 pack/day smoker. No other recent hospitalizations for COPD. Patient presented to emergency room yesterday with a chief complaint of progressively worsening shortness of breath, persistent cough with occasional sputum production, and chest tightness. He was started on a combination of DuoNebs, Symbicort inhaler, and high-dose IV steroids. He is currently sitting at the edge of the bed, on 2 L/min nasal cannula, in no obvious distress while at rest. Despite this he remains wheezy. His COPD is still active. CT of the chest was done yesterday, patient has questionable history of pulmonary nodule. I personally reviewed the imaging, opacities at the bases favored to represent bibasilar atelectasis. The patient has some background mild centrilobular emphysema. Patient's lab work was repeated. CBC and BMP are fairly unremarkable. No significant leukocytosis. Procalcitonin level was low at 0.04. Patient remains afebrile. Overall hemodynamically stable. On 09/01/2023, the patient is feeling well and less short of breath. He underwent a cardiac catheterization today and BENITEZ to LAD and a saphenous vein grafts were patent and the patient will be managed medically. In terms of his COPD exacerbation, he continues to be on bronchodilators. He is feeling less short of breath and his chest tightness is also improving. His viral screen was negative. He is known to undergo previous bypass surgery with redo surgery and the patient has elevation in the left hemidiaphragm that was plicated many years back at [facility]. On 09/02/2023, the patient is less short of breath. No chest pain. No angina. No palpitation. No other complaints otherwise. BUN is 24 with a creatinine of 0.6 and a sodium levels at 138. The patient is ambulating. Cardiac catheterization was done yesterday and the patient was found to have nonocclusive disease. He is currently on aspirin. He is also on Lipitor 80 mg p.o. He is on Coreg 25 mg twice a day and Plavix 75 mg p.o. daily. He is also on a combination of Entresto, Aldactone and Imdur. He is currently on 3 L of O2 nasal cannula. 09/03/2023, the patient is experiencing some shortness of breath and he was bronchospastic and wheezy overnight. Otherwise, no other new complaints. No chest pain. He remains on bronchodilators. Remains on steroids. He does have some congestion and Mucinex will be added. BUN is at 27 and the creatinine is 0.8 and a sodium level of 137 and a potassium level is at 4.7. The patient is seen today September 04, 2023 in follow-up on the regular medical floor. He is currently sitting up at the bedside. Awake and alert in no acute distress. He is feeling quite a bit better. No worsening shortness of breath, cough or congestion. Cultures revealed no growth. Blood sugar 160. He is continued on DuoNeb ventilations, Symbicort, Solu-Medrol. Lovenox for DVT prophylaxis. Objective - Vital Signs Vital signs: Vital Signs Temp 97.8 F 09/04/23 07:46 Pulse 65 09/04/23 10:52 Resp 16 09/04/23 07:46 BP 150/79 09/04/23 07:46 Pulse Ox 91 L 09/04/23 10:52 FiO2 Intake & Output 09/03/23 09/04/23 09/04/23 18:59 06:59 18:59 Intake Total 358 250 118 Balance 358 250 118 Intake: Oral 358 250 118 Other: Voiding Method Toilet Toilet Toilet # Voids 2 2 - Exam GENERAL EXAM: Alert, 68-year-old pleasant male, 2 L nasal cannula, comfortable in no apparent distress. HEAD: Normocephalic and atraumatic EYES: Normal reaction of pupils, equal size. NOSE: Clear with pink turbinates. THROAT: No erythema or exudates. NECK: No masses, no JVD. CHEST: No chest wall deformity. LUNGS: Equal air entry with expiratory wheezes heard throughout and scattered rhonchi. CVS: S1 and S2 normal with no audible murmur, regular rhythm. No extra heart sounds ABDOMEN: No hepatosplenomegaly, active bowel sounds, no guarding or rigidity. SPINE: No scoliosis or deformity SKIN: No rashes CENTRAL NERVOUS SYSTEM: Mild flattening of left nasolabial fold, otherwise, neurological examination non-focal. Vision intact, tracks with conjugate gaze in all directions, tongue protrudes midline, normal articulation, no dysphasia, sensation intact, bilateral upper and lower extremity strength 5/5, no drift, no ataxia, patellar DTRs 2+ bilaterally. EXTREMITIES: There is no peripheral edema, clubbing, or cyanosis. Peripheral pulses are intact - Labs CBC & Chem 7: 08/31/23 06:44 05/05/24 05:53 Labs: Abnormal Lab Results - Last 24 Hours (Table) 09/03/23 09/03/23 09/04/23 Range/Units 16:40 20:40 05:48 POC Glucose (mg/dL) 157 H 178 H 160 H (70-110) mg/dL 09/04/23 Range/Units 11:44 POC Glucose (mg/dL) 159 H (70-110) mg/dL Assessment and Plan Assessment: Acute COPD exacerbation, chest x-ray does not show any focal infiltrates or evidence of pneumonia. Negative for influenza, RSV, COVID. Clinically improving Acute hypoxemic respiratory failure, secondary to above Chronic ongoing tobacco dependence, smokes approximately 1 pack/day Reported history of right lung pulmonary nodule, without follow up, I did order a follow-up CT of the chest with contrast which demonstrated minimal bibasilar opacities, favored to represent atelectasis. No significant reported lymphadenopathy. The patient has some background mild centrilobular emphysema. History of left hemidiaphragm paralysis, status post plication CHF with impaired LV function, echocardiogram shows ejection fraction of 25 to 30% with grade 2 diastolic dysfunction. The patient is currently on Coreg 25 mg p.o. twice daily, Entresto was also added at a dose of 1 tablet a day in combination with Imdur and Farxiga., Elevated troponins, thought to reflect supply/demand mismatch, cardiology is following, cardiac catheterization was noted and nonocclusive disease was noted. BENITEZ and SVG grafts are patent. Coronary artery disease, with previous CABG and redo Exertional angina, always relieved with PRN sublingual nitroglycerin tabs. History of hyperlipidemia History of hypertension History of CVA/TIA History of bilateral carotid artery stenosis, status post bilateral carotid endarterectomy Chronic thrombocytopenia Plan: Patient was seen and evaluated Labs and medications reviewed Stable for discharge Evaluate for possible home oxygen Educated regarding the importance of complete smoking cessation Follow-up in the office in 1 week This patient was seen independently by the pulmonary nurse practitioner addressing pulmonary issues I have personally seen and examined the patient, performed the documentation and the assessment and plan as written. Number of minutes spent on the visit: 23.
== END 2023-09-04 12:40 | disposition home health service (06) | DRG 190 ==
LOC: EC 02:17 → 5NMEDONC 04:37 → 6NMEDSUR 09-01 13:20
PROVIDERS: ADMIT Internal Medicine; ATTEND Internal Medicine
PROC: 3E0F7SF Introduction of Other Gas into Respiratory Tract, Via Natural or Artificial Opening (ICD-10-PCS; 2023-08-30)
PROC: 4A023N7 Measurement of Cardiac Sampling and Pressure, Left Heart, Percutaneous Approach (ICD-10-PCS; principal; 2023-09-01 10:30)
PROC: B2111ZZ Fluoroscopy of Multiple Coronary Arteries using Low Osmolar Contrast (ICD-10-PCS; 2023-09-01 10:30)
DX: J44.1 Chronic obstructive pulmonary disease with (acute) exacerbation (principal); J96.01 Acute respiratory failure with hypoxia; I50.32 Chronic diastolic (congestive) heart failure; I42.8 Other cardiomyopathies; J98.11 Atelectasis; I25.119 Atherosclerotic heart disease of native coronary artery with unspecified angina pectoris; F17.210 Nicotine dependence, cigarettes, uncomplicated; I25.5 Ischemic cardiomyopathy; I11.0 Hypertensive heart disease with heart failure; Z71.6 Tobacco abuse counseling; D69.6 Thrombocytopenia, unspecified; I25.2 Old myocardial infarction; F31.9 Bipolar disorder, unspecified; I08.1 Rheumatic disorders of both mitral and tricuspid valves; I73.9 Peripheral vascular disease, unspecified; F41.9 Anxiety disorder, unspecified; G47.00 Insomnia, unspecified; Z79.02 Long term (current) use of antithrombotics/antiplatelets; Z79.51 Long term (current) use of inhaled steroids; Z79.82 Long term (current) use of aspirin; Z79.899 Other long term (current) drug therapy; Z85.528 Personal history of other malignant neoplasm of kidney; Z86.73 Personal history of transient ischemic attack (TIA), and cerebral infarction without residual deficits; Z86.79 Personal history of other diseases of the circulatory system; E78.5 Hyperlipidemia, unspecified; J43.2 Centrilobular emphysema
CPT/HCPCS: 36415; 71046; 71260; 76937; 80048; 80053; 83735; 83880; 84145; 84484; 85025; 85610; 85730; 87040; 87636; 93005; 93306; 93459; 94640; 94760; 96365; 96366; 96367; 96368; 96375; 96376; 99291

== ENCOUNTER 2024-06-11 10:29 | Inpatient (IN) | payer MEDICARE ==
[2024-06-11] MEDS ORDERED: HEPARIN SODIUM 1,000 UN/ML (10ML VL) IV PRN (16:54)
[2024-06-11] MEDS ORDERED: NITROGLYCERIN SL TABS 0.4 MG TAB SUBLINGUAL PRN (16:58)
[2024-06-11] MEDS: HEPARIN SOD,PORK IN 0.45% NACL 25,000 UNIT in 0.45% NACL 1 250ML.BAG IV SCH (17:51)
--- NOTE | 2024-06-11 18:26 | XR ---
EXAMINATION TYPE: XR chest 1V portable DATE OF EXAM: 06/11/2024 5:47 PM COMPARISON: None. CLINICAL INDICATION: Male, 69 years old with history of SOB, TECHNIQUE: XR chest 1V portable view(s) obtained. FINDINGS: The heart size is enlarged. The pulmonary vasculature is normal. There may be some retrocardiac infiltrate. Correlate for atelectasis. Consider pneumonia. IMPRESSION: 1. Retrocardiac infiltrate may be present. Atelectasis or pneumonia could be considered. 2. Cardiomegaly [facility], Workstation: [facility], 06/11/2024 6:23 PM
[2024-06-11] MEDS: DILTIAZEM 125 MG in SODIUM CHLORIDE 0.9% 100 ML IV SCH (18:59)
[2024-06-11 19:42] LABS: INR 1.1 (<1.2); Partial Thromboplastin Time 56.5 sec (22.0-30.0); Prothrombin Time 11.6 sec (10.0-12.5)
[2024-06-11] MEDS: SACUBITRIL/VALSARTAN 24 MG-26 MG TABLET PO SCH (21:40)
[2024-06-11] MEDS: RANOLAZINE 500 MG TAB.ER.12H PO SCH (21:40)
[2024-06-11] MEDS: carvediloL 12.5 MG TAB PO SCH (21:40)
--- NOTE | 2024-06-12 06:46 | P.CNPUL ---
History of Present Illness Consult date: 06/12/24 Requesting physician: Patrice Ambrose Reason for consult: dyspnea Chief complaint: Shortness of breath History of present illness: Patient is a 68-year-old white male with past medical history significant for COPD, chronic ongoing tobacco dependence, coronary artery disease with previous CABG and redo, left hemidiaphragm paralysis status/post plication, hypertension, hyperlipidemia, CVA/TIA, carotid artery stenosis status/post bilateral carotid endarterectomy, among other things. He follows at the [facility] for his primary care needs. Patient is known to have COPD, which is usually fairly well-controlled. He is unsure of his inhalers. Continues to smoke cigarettes approximately 6/day. Of note, patient recently hospitalized at [facility], reportedly for COVID-19 and pneumonia. Discharged from the outside facility on 06/09/2024, then returned yesterday with similar complaints of shortness of breath. While in the ER, noted to be in atrial fibrillation with rapid ventricular rate. His troponins were elevated. The patient was started on a combination of Cardizem at 5 mg/h, as well as, systemic IV heparin. Patient then transferred to [facility]. He is currently being evaluated on the cardiac stepdown unit. He is sitting at the edge of the bed. On 4 L/min nasal cannula. Not in any respiratory distress. His primary complaint is shortness of breath. He has a nonproductive cough. Denies any fever/chills, sputum production, hemoptysis. Faint expiratory wheezes heard bilaterally. Denies any chest pain. Does endorse some lightheadedness and heart palpitations prior to going to the emergency department at [facility]. Denies any syncopal events, orthopnea, PND, lower extremity swelling. Heart rate currently better controlled ranging from 80 to 100 bpm. Blood pressure is normotensive. Continues on Cardizem at 5 mg/h. Also, systemically heparinized per protocol. Chest x-ray done at our facility showing cardiomegaly, mild pulmonary vascular congestion, and possible retrocardiac infiltrate or atelectasis. Prior sternotomy wires noted. Patient states that he is going for heart catheterization this morning. Review of Systems Constitutional: Reports fatigue, Denies chills, Denies fever, Denies poor appetite, Denies weight gain, Denies weight loss Ears, nose, mouth and throat: Denies headache, Denies nasal congestion, Denies nasal discharge, Denies post-nasal drip, Denies sinus pain, Denies sinus pressure, Denies sore throat Cardiovascular: Reports as per HPI Respiratory: Denies as per HPI Gastrointestinal: Denies abdominal pain, Denies diarrhea, Denies hematemesis, Denies hematochezia, Denies melena, Denies nausea, Denies vomiting Genitourinary: Denies dysuria Musculoskeletal: Denies limitation of motion Integumentary: Denies rash, Denies unusual bruising Neurological: Denies seizures, Denies syncope Psychiatric: Denies anxiety, Denies depression Past Medical History Past Medical History: Cancer, Chest Pain / Angina, COPD, CVA/TIA, Hyperlipidemia, Hypertension, Myocardial Infarction (VT), Osteoarthritis (OA) Additional Past Medical History / Comment(s): generalized fatigue, unable to walk distance,SOB, CVA-several yrs. ago-post carotid endarterectomy-no residual effects; Right kidney cancer Last Myocardial Infarction Date:: 2012 History of Any Multi-Drug Resistant Organisms: None Reported Past Surgical History: Coronary Bypass/CABG, Heart Catheterization Additional Past Surgical History / Comment(s): earlene. carotid endarterectomy, triple bypass 2012, diaphragm repair post CABG, fem-fem. bypass, Cryoablation of right renal tumor- approximately 2009 at [facility] Past Anesthesia/Blood Transfusion Reactions: No Reported Reaction Past Psychological History: Anxiety, Bipolar Smoking Status: Current every day smoker Past Alcohol Use History: Occasional Additional Past Alcohol Use History / Comment(s): quit smoking 2005, smoked for 40 yrs. started up again in July after his spouse Past Drug Use History: None Reported - Past Family History Mother History Unknown: Yes Family Medical History: Cancer Medications and Allergies Home Medications Medication Instructions Recorded Confirmed Type Clopidogrel [Plavix] 75 mg PO DAILY 04/04/16 06/11/24 History Rosuvastatin Calcium [Crestor] 40 mg PO DAILY 03/28/20 06/11/24 History carvediloL [Coreg] 12.5 mg PO BID 08/30/23 06/11/24 History Isosorbide Mononitrate ER [Imdur] 60 mg PO DAILY #60 tab 09/04/23 06/11/24 Rx Nitroglycerin Sl Tabs [Nitrostat] 0.4 mg SUBLINGUAL Q5M PRN #30 tab 09/04/23 06/11/24 Rx Ranolazine [Ranexa] 500 mg PO Q12HR #60 tab 09/04/23 06/11/24 Rx Spironolactone [Aldactone] 25 mg PO DAILY #30 tab 09/04/23 06/11/24 Rx Albuterol Inhaler [Ventolin Hfa 2 puff INHALATION RT-QID PRN 06/11/24 06/11/24 History Inhaler] Empagliflozin [Jardiance] 10 mg PO DAILY 06/11/24 06/11/24 History Mometasone Furoate [Asmanex 200 1 puff INHALATION RT-BID 06/11/24 06/11/24 History MCG Hfa] Sacubitril/Valsartan [Entresto 24 1 tab PO BID 06/11/24 06/11/24 History mg-26 mg Tablet] Allergies Allergy/AdvReac Type Severity Reaction Status Date / Time amlodipine [From Norvasc] Allergy per Verified 06/11/24 19:34 [facility] enalaprilat [From Vasotec] Allergy per Verified 06/11/24 19:34 [facility] isosorbide [From Imdur] Allergy per Verified 06/11/24 19:34 [facility], taking at home Physical Exam Vitals: Vital Signs Temp Pulse Resp BP Pulse Ox 06/12/24 04:10 103 H 18 142/84 97 06/11/24 23:45 88 18 106/78 96 06/11/24 19:40 98.0 F 96 18 135/69 97 06/11/24 17:50 97.4 F L 98 18 124/65 97 06/11/24 15:22 96 06/11/24 14:47 98 18 06/11/24 14:46 97.1 F L 104 H 20 107/58 97 Intake and Output 06/11/24 06/11/24 06/12/24 14:59 22:59 06:59 Intake Total 360 Output Total 800 Balance 360 -800 Intake: Oral 360 Output: Urine 800 Other: Voiding Method Urinal Urinal Urinal # Voids 3 2 # Bowel Movements 1 Weight 104 kg 99.2 kg GENERAL EXAM: Alert, 69-year-old male, sitting at the edge of the bed, on 4 L/ min nasal cannula,, comfortable in no apparent distress. HEAD: Normocephalic and atraumatic EYES: Normal reaction of pupils, equal size. NOSE: Clear with pink turbinates. THROAT: No erythema or exudates. NECK: No masses, no JVD. CHEST: No chest wall deformity. Remote sternotomy incision LUNGS: Equal air entry with faint expiratory wheezes heard bilaterally throughout. No conversational dyspnea or accessory muscle use.. CVS: S1 and S2 normal with no audible murmur, irregular rhythm. No extra heart sounds ABDOMEN: No hepatosplenomegaly, active bowel sounds, no guarding or rigidity. SPINE: No scoliosis or deformity SKIN: No rashes CENTRAL NERVOUS SYSTEM: No focal deficits, tone is normal in all 4 extremities. EXTREMITIES: There is no peripheral edema, clubbing, or cyanosis. Peripheral pulses are intact. Results - Laboratory Findings PT/INR, D-dimer PT 11.6 sec (10.0-12.5) 06/11/24 17:18 INR 1.1 (<1.2) 06/11/24 17:18 Abnormal lab findings: Abnormal Labs 06/11/24 06/11/24 15:03 17:18 APTT 48.7 H 56.5 H - Diagnostic Findings Chest x-ray: image reviewed Assessment and Plan Assessment: New onset atrial fibrillation with rapid ventricular rate, currently on Cardizem 5 mg/h and systemically heparinized Suspect acute exacerbation of systolic congestive heart failure Acute COPD exacerbation Recent hospitalization at outside facility for COVID-19 and pneumonia Acute hypoxemic respiratory failure, secondary to combination of above; Chest x-ray done at our facility showing cardiomegaly, mild pulmonary vascular congestion, and possible retrocardiac infiltrate or atelectasis. Prior sternotomy wires noted. Elevated troponins, reportedly going for heart catheterization today Chronic ongoing tobacco dependence, down to 6 cigarettes/day Reported history of pulmonary nodule, can follow-up on outpatient basis History of left hemidiaphragm paralysis, status post plication History of heart failure with reduced ejection fraction, most recent available echocardiogram from Aug, 2023 shows ejection fraction of 25 to 30% with grade 2 diastolic dysfunction. The patient is currently on Coreg, Entresto and Farxiga. Coronary artery disease, with previous CABG and redo; most recently underwent heart catheterization on 09/01/2023 demonstrating patent BENITEZ to the LAD, occluded graft to the ramus intermedius, patent graft going to the PDA of RCA and PDA of LCx. History of angina, PRN sublingual nitroglycerin tabs. History of hyperlipidemia History of hypertension History of CVA/TIA History of bilateral carotid artery stenosis, status post bilateral carotid endarterectomy Plan: Patient's medications, labs, imaging reviewed Continues on Cardizem 5 mg/h, as well as, being systemically heparinized per protocol. Cardiology is consulted; Patient reportedly going for heart catheterization today Cardiac medications have been resumed including Coreg, Entresto, and Farxiga Continue supplemental oxygen, currently on 4 L/min nasal cannula Continue combination of bronchodilators, budesonide inhalation, formoterol inhalation, and prednisone Check procalcitonin level, Check Cepheid 4 Plex, Obtain labs We will continue to follow, additional recommendations forthcoming I have personally seen and examined the patient, performed the documentation and the assessment and plan as written. Number of minutes spent on the visit:20 This dictation was produced using [employer] dictation software please excuse grammatical errors Time with Patient: Greater than 30
--- NOTE | 2024-06-12 07:11 | HP ---
HISTORY AND PHYSICAL HISTORY OF PRESENT ILLNESS: He had COVID 2 to 3 weeks ago. He has been short of breath ever since then. Woke up at night with chest pain and came to the hospital, had a positive troponin. He has been sent over here for possible heart catheterization tomorrow. PHYSICAL EXAMINATION: VITAL SIGNS: He is saturating 97% on 4 L, pulse rate is 90s to low 100s, temp 97.4. CARDIOVASCULAR: S1, S2. LUNGS: Decreased breath sounds. HEMATOLOGY: Negative Homans. PSYCH: Fair mood and affect. NEUROLOGIC: Cranial nerves intact. He is on 2 L oxygen. Atypical chest pain. Non STEMI, possible coronary artery disease, heart catheterization tomorrow. Continue home medications for his medical multiple problems including COPD, hypoxemic respiratory failure, atrial fibrillation with RVR, bronchitis, status post COVID, coronary artery disease. He is on heparin. He is going to get a heart catheterization tomorrow. He has a systolic heart failure. He is on Entresto, Aldactone. Takes Spiriva at home for inhaler, Imdur. Please see further orders. Prognosis guarded. MMODL / IJN: [id number] /
[2024-06-12 07:25] LABS: Basophils % (A) 0 %; Eosinophils # (A) 0.1 k/uL (0-0.7); Eosinophils % (A) 1 %; HCT 40.7 % (39.0-53.0); HGB 12.5 gm/dL (13.0-17.5); Hypochromasia Moderate; Lymphocytes % (A) 16 %; MCH 29.7 pg (25.0-35.0); MCHC 30.8 g/dL (31.0-37.0); MCV 96.5 fL (80.0-100.0); Monocytes # (A) 0.4 k/uL (0-1.0); Monocytes % (A) 6 %; Neutrophils # (A) 4.6 k/uL (1.3-7.7); Neutrophils % (A) 75 %; Platelet Count 119 k/uL (150-450); RBC 4.22 m/uL (4.30-5.90); RDW 13.8 % (11.5-15.5); WBC 6.1 k/uL (3.8-10.6)
[2024-06-12 07:55] LABS: ALT 41 U/L (4-49); AST 23 U/L (17-59); African American GFR (CKD) >90 (>60 ml/min/1.73 sqM); Albumin 2.7 g/dL (3.5-5.0); Alkaline Phosphatase 53 U/L (38-126); Anion Gap 3 mmol/L; Blood Urea Nitrogen 17 mg/dL (9-20); Calcium 7.5 mg/dL (8.4-10.2); Carbon Dioxide 33 mmol/L (22-30); Chloride 105 mmol/L (98-107); Glucose 96 mg/dL (74-99); Non-African American GFR(CKD) >90 (>60 ml/min/1.73 sqM); Potassium 3.6 mmol/L (3.5-5.1); Sodium 141 mmol/L (137-145); Total Bilirubin 0.8 mg/dL (0.2-1.3)
[2024-06-12] MEDS ORDERED: SYMBICORT 160-4.5 MCG INHALER INHALATION SCH (08:00)
[2024-06-12] MEDS: SPIRONOLACTONE 25 MG TAB PO SCH (08:45)
[2024-06-12] MEDS: predniSONE 20 MG TAB PO SCH (08:46)
[2024-06-12] MEDS: BENZONATATE 100 MG CAP PO PRN (08:46)
[2024-06-12] MEDS: ISOSORBIDE MONONITRATE ER 60 MG TAB.ER.24H PO SCH (08:46)
[2024-06-12] MEDS: ASPIRIN 81 MG PO SCH (08:46)
[2024-06-12] MEDS: CLOPIDOGREL 75 MG TAB PO SCH (08:46)
[2024-06-12] MEDS: ATORVASTATIN 80 MG TAB PO SCH (08:46)
[2024-06-12] MEDS: LORATADINE 10 MG TAB PO SCH (08:46)
[2024-06-12] MEDS: DAPAGLIFLOZIN PROPANEDIOL 10 MG TABLET PO SCH (08:46)
[2024-06-12] MEDS: ASPIRIN 325 MG TAB PO STA (08:47)
[2024-06-12] MEDS: FLUTICASONE NASAL 50MCG/SPRAY 16GM BTL EA NOSTRIL SCH (08:47)
[2024-06-12] MEDS: FORMOTEROL FUMARATE 20 MCG/2 ML NEBU INHALATION SCH (08:52)
[2024-06-12] MEDS: FUROSEMIDE 10 MG/ML 4 ML VIAL IV SCH (08:53)
[2024-06-12] MEDS: TIOTROPIUM 2.5 MCG INHALER INHALATION SCH (08:54)
[2024-06-12] MEDS: BUDESONIDE 1 MG/2 ML NEBU INHALATION SCH (08:55)
[2024-06-12] MEDS: DEXTROSE 5% IN WATER 100 ML with AMIODARONE 150 MG IV ONE (10:31)
[2024-06-12] MEDS: AMIODARONE 360 MG in DEXTROSE 5% IN WATER 200 ML IV ONE (10:45)
--- NOTE | 2024-06-12 11:57 | P.PN ---
Subjective Progress Note Date: 06/12/24 This is a 69-year-old male patient with past medical history of NSTEMI, multivessel CAD status post three-vessel CABG in 2011, peripheral artery disease status post femorofemoral bypass in 2011, ischemic cardiomyopathy with EF of 45%, carotid atherosclerosis status post carotid endarterectomy, hypertension, hyperlipidemia, CVA, renal cell carcinoma status post cryosurgery in 2007, COPD, chronic tobacco use and dependence ongoing. Patient also had a second bypass surgery for CAD in 2016. Patient had a recent hospitalization at [facility] for COPD exacerbation, COVID infection and pneumonia and was discharged on 06/09. Patient returned to the emergency center due to difficulty in breathing with progressively worsening shortness of breath. EKG was atrial fibrillation at 141 bpm.. He also had elevated troponins up to 2176, 2780, 2216. Chest x-ray showed mild cardiomegaly airspace opacities in the bilateral lower lung zones indicating pneumonia, small left pleural effusion. CT of the chest with contrast revealed small bilateral pleural effusions and persistent bibasilar opacities. Patient was started on a heparin drip, as well as, a bolus of Cardizem followed by IV Cardizem drip. Patient followed in the past with Dr. Melo and his last appointment was on 06/28/2016. He currently follows at the [facility]. Patient has been transferred to [facility] for further evaluation and cardiac catheterization. Patient has noted to have a congested cough. He remains in atrial fibrillation at 99 bpm. Patient states he continues to have shortness of breath and his breathing does not seem to be any better. He states he is unable to lay flat due to worsening shortness of breath. -Home cardiac medications: Coreg 12.5 mg twice daily, Plavix 75 mg daily, Jardiance 10 mg daily, Imdur 60 mg daily, Nitrostat as needed, Ranexa 500 mg every 12 hours, rosuvastatin 40 mg daily, Entresto 24-26 mg twice daily, spironolactone 25 mg daily. -Echocardiogram performed on 06/07/2024 at [facility] revealed left ventricle appears normal size. Global hypokinesis of the left ventricle. Mild concentric LVH, left ventricular systolic function is decreased to 30 to 35%. No significant valvular dysfunction. -CV surgery 04/19/2012: BENITEZ to LAD, SVG to diagonal, SVG to the RPDA. -Redo CABG 06/06/2016: Evidence of CAD both the lives in auto genus graft un derwent redo with CABG x 2 with BENITEZ to obtuse marginal, SVG with bypass of the posterior lateral branch. Physical examination: Gen: This is a 69-year-old male in no acute distress VS: reviewed HEENT: Head is atraumatic, normocephalic. Pupils equal, round. Sclerae is anicteric. NECK: Supple. No JVD. LUNGS: Clear to auscultation. No wheezes or rhonchi. No intercostal retractions. HEART: Regular rate and rhythm. No murmur. ABDOMEN: Soft No tenderness. EXTREMITIES: No pedal edema. No calf tenderness. NEUROLOGICAL: Patient is awake, alert and oriented x3. Assessment: New onset paroxysmal atrial fibrillation with RVR NSTEMI Recent COVID infection and pneumonia COPD exacerbation Ischemic cardiomyopathy with EF 30 to 35% Multivessel CAD with previous CABG and redo CABG in 2017 Bilateral carotid artery stenosis status post endarterectomy Peripheral artery disease status post femorofemoral bypass left to right History of non-STEMI Hypertension Hyperlipidemia Chronic tobacco use and dependence, <1ppd Obesity Plan: Continue patient's home cardiac medications with the following changes: Discontinue Cardizem drip Start patient on amiodarone drip per protocol Increase Coreg to 25 mg twice daily Start patient on IV Lasix 40 mg every 12 hours Monitor ESTELLE, daily weights, electrolytes and renal function Continue patient on heparin drip Continue telemetry monitoring No need to repeat echocardiogram as this was done at [facility] Schedule patient for cardiac catheterization on with Dr. Lagos if respiratory status is stable N.p.o. after midnight Further recommendations to follow based upon clinical course Nurse practitioner note has been reviewed, I agree with documented findings and plan of care. Patient was seen and examined. Objective - Vital Signs Vital signs: Vital Signs Temp 98.1 F 06/12/24 07:54 Pulse 109 H 06/12/24 07:54 Resp 20 06/12/24 07:54 BP 127/81 06/12/24 07:54 Pulse Ox 97 06/12/24 04:10 FiO2 Intake & Output 06/11/24 06/12/24 06/12/24 18:59 06:59 18:59 Intake Total 240 120 211.5 Output Total 800 Balance 240 -680 211.5 Weight 104 kg 99.2 kg Intake: Intake, IV Titration 211.5 Amount Heparin Sod,Pork in 0.45% 211.5 NaCl 25,000 unit In 0.45 % NaCl 1 250ml.bag @ 14. 423 UNITS/KG/HR 15 mls/hr IV .[id number] [facility] Rx#: [id number] Oral 240 120 Output: Urine 800 Other: Voiding Method Urinal Urinal # Voids 2 # Bowel Movements 1 - Labs CBC & Chem 7: 06/12/24 06:18 06/12/24 06:18 Labs: Abnormal Lab Results - Last 24 Hours (Table) 06/11/24 06/11/24 06/12/24 Range/Units 15:03 17:18 06:18 RBC 4.22 L (4.30-5.90) m/uL Hgb 12.5 L (13.0-17.5) gm/dL MCHC 30.8 L (31.0-37.0) g/dL Plt Count 119 L (150-450) k/uL APTT 48.7 H 56.5 H (22.0-30.0) sec Carbon Dioxide (22-30) mmol/L Calcium (8.4-10.2) mg/dL Total Protein (6.3-8.2) g/dL Albumin (3.5-5.0) g/dL 06/12/24 06/12/24 Range/Units 06:18 06:18 RBC (4.30-5.90) m/uL Hgb (13.0-17.5) gm/dL MCHC (31.0-37.0) g/dL Plt Count (150-450) k/uL APTT 67.3 H (22.0-30.0) sec Carbon Dioxide 33 H (22-30) mmol/L Calcium 7.5 L (8.4-10.2) mg/dL Total Protein 5.0 L (6.3-8.2) g/dL Albumin 2.7 L (3.5-5.0) g/dL
--- NOTE | 2024-06-12 14:45 | CT ---
EXAMINATION TYPE: CT chest wo con DATE OF EXAM: 06/12/2024 COMPARISON: 08/30/2023 CLINICAL INDICATION: Male, 69 years old with history of pleural effusion/covid pneumonia; PHH, Pleura l effusion/covid pneumonia. TECHNIQUE: CT scan of the thorax is performed without IV contrast. CT DLP: 501.[address] CTDI: mGy Automated exposure control for dose reduction was used. FINDINGS: There is a small right lower lobe infiltrate and a small loculated right pleural effusion. There is a moderate partially consolidated infiltrate in the left lung base and a small left pleural effusion. There are mild emphysematous changes in the upper lobes. There are no groundglass opacities. No pneumothorax. The great vessels chest are normal and there is no mediastinal, hilar or axillary adenopathy. There i s marked cardiomegaly. Limited scanning through the upper abdomen reveals a contracted gallbladder and there is mild pericho lecystic fluid. There are no gallstones. There is 3 to 4 mm nonobstructing left renal calcification The osseous structures are intact. IMPRESSION: 1. Small right lower lobe infiltrate with small loculated right pleural effusion. 2. Moderate partially consolidative infiltrate in the left lung base with a small left effusion. 3. No adenopathy. 4. No groundglass opacities. 5. Mild emphysematous changes with an upper lobe predominance. Follow-up recommendations for incidental pulmonary nodules are per [employer] or [employer]. [facility], , 06/12/2024 2:42 PM
--- NOTE | 2024-06-12 16:06 | XR ---
EXAMINATION TYPE: XR chest 2V DATE OF EXAM: 06/12/2024 2:29 PM COMPARISON: 06/11/2024 CLINICAL INDICATION: Male, 69 years old with history of pneumonia, CHF, , TECHNIQUE: AP and lateral views FINDINGS: Median sternotomy wires with post-CABG clips. Heart mildly enlarged. Small to moderate left and small right pleural effusions with adjacent opacity. Interstitial/vascular prominence. IMPRESSION: 1. Correlate for ongoing mild CHF with pulmonary vascular congestion. 2. Ongoing small to moderate left and small right pleural effusions with adjacent atelectasis and/or consolidation. Aeration may be slightly worsening at the right lung base. [facility], Workstation: [id number], 06/12/2024 4:04 PM
[2024-06-12] MEDS: AMIODARONE 450 MG in DEXTROSE 5% IN WATER 250 ML IV SCH (18:19)
[2024-06-12 20:41] LABS: Influenza A Not Detected (Not Detectd); Influenza B Not Detected (Not Detectd); RSV Not Detected (Not Detectd)
[2024-06-12] MEDS: carvediloL 12.5 MG TAB PO SCH (21:38)
[2024-06-12] MEDS: guaiFENesin-DM 600/30MG 1 EACH TAB.ER.12H PO PRN (22:21)
--- NOTE | 2024-06-12 23:14 | PN ---
PROGRESS NOTE Ke Bee came into the hospital, transferred from the other hospital for a non STEMI. He is supposed to get a heart catheterization today by [facility]. He had influenza or the flu 2 weeks ago. He has been sick ever since. I think he might have had a COVID 2 weeks ago. He has systolic heart failure history. He follows up at the [facility]. PHYSICAL EXAMINATION: CARDIOVASCULAR: S1, S2. LUNGS: Transmitted upper sounds. HEMATOLOGY: Negative Homans. Recent COVID infection, pneumonia, COPD exacerbation, systolic ejection fraction, multivessel coronary artery disease, status post carotid endarterectomy, peripheral artery disease, history of non STEMI. Still continues to smoke. He is on amiodarone and Cardizem drip. Increase his Coreg. IV Lasix. We will do a CT of the chest to rule out pneumonia, pleural effusion. N.p.o. on midnight. Possible cardiac cath tomorrow. MMODL / IJN: [id number] /
[2024-06-13] MEDS: ASPIRIN 325 MG TAB PO ONE (06:33)
[2024-06-13] MEDS: ATORVASTATIN 80 MG TAB PO ONE (06:33)
[2024-06-13] MEDS: ALPRAZolam 0.5 MG TAB PO PRN (06:33)
[2024-06-13 07:26] LABS: HCT 37.2 % (39.0-53.0); HGB 11.9 gm/dL (13.0-17.5); MCH 30.4 pg (25.0-35.0); MCV 95.1 fL (80.0-100.0); Mean Platelet Volume 8.8; Platelet Count 102 k/uL (150-450); RBC 3.91 m/uL (4.30-5.90); WBC 4.3 k/uL (3.8-10.6)
[2024-06-13 08:15] LABS: African American GFR (CKD) >90 (>60 ml/min/1.73 sqM); Anion Gap 3 mmol/L; Blood Urea Nitrogen 17 mg/dL (9-20); Calcium 8.5 mg/dL (8.4-10.2); Carbon Dioxide 38 mmol/L (22-30); Chloride 99 mmol/L (98-107); Glucose 110 mg/dL (74-99); Non-African American GFR(CKD) 90 (>60 ml/min/1.73 sqM); Potassium 3.7 mmol/L (3.5-5.1); Sodium 140 mmol/L (137-145)
[2024-06-13] MEDS: FLUTICASONE 220 MCG INHALER INHALATION SCH (12:13)
[2024-06-13] MEDS: Salmeterol 50 mcg INHALER INHALATION SCH (12:14)
[2024-06-13] MEDS: IV FLUID CONTINUATION 1,000 ML IV ONE (12:26)
[2024-06-13] MEDS: MIDAZOLAM 2 MG/2 ML VIAL IVP ONE ×2 (12:26→13:17)
[2024-06-13] MEDS: HEPARIN SODIUM,PORCINE (1 ML) 2,500 UNIT in SODIUM CHLORIDE 0.9% 250 ML IRRIGATION PRN (12:27)
[2024-06-13] MEDS: HEPARIN SODIUM,PORCINE 10,000 UNIT in SODIUM CHLORIDE 0.9% 1,000 ML IRRIGATION PRN (12:27)
[2024-06-13] MEDS: LIDOCAINE 1% INJ 10MG/ML (20 ML MDV) SQ ONE (12:36)
[2024-06-13] MEDS: IOPAMIDOL-370 100ML BTL INJ ONE ×2 (12:57→14:11)
[2024-06-13] MEDS: HEPARIN SODIUM 1,000 UN/ML (10ML VL) IV ONE (13:01)
[2024-06-13] MEDS: fentaNYL (PF) 50 MCG/ML 2 ML AMP IVP ONE (13:17)
--- NOTE | 2024-06-13 13:30 | P.PN ---
Subjective Progress Note Date: 06/13/24 Principal diagnosis: Chest pain. Patient is a 68-year-old white male with past medical history significant for COPD, chronic ongoing tobacco dependence, coronary artery disease with previous CABG and redo, left hemidiaphragm paralysis status/post plication, hypertension, hyperlipidemia, CVA/TIA, carotid artery stenosis status/post bilateral carotid endarterectomy, among other things. He follows at the [facility] for his primary care needs. Patient is known to have COPD, which is usually fairly well-controlled. He is unsure of his inhalers. Continues to smoke cigarettes approximately 6/day. Of note, patient recently hospitalized at [facility], reportedly for COVID-19 and pneumonia. Discharged from the outside facility on 06/09/2024, then returned yesterday with similar complaints of shortness of breath. While in the ER, noted to be in atrial fibrillation with rapid ventricular rate. His troponins were elevated. The patient was started on a combination of Cardizem at 5 mg/h, as well as, systemic IV heparin. Patient then transferred to [facility]. He is currently being evaluated on the cardiac stepdown unit. He is sitting at the edge of the bed. On 4 L/min nasal cannula. Not in any respiratory distress. His primary com plaint is shortness of breath. He has a nonproductive cough. Denies any fever/chills, sputum production, hemoptysis. Faint expiratory wheezes heard bilaterally. Denies any chest pain. Does endorse some lightheadedness and heart palpitations prior to going to the emergency department at [facility]. Denies any syncopal events, orthopnea, PND, lower extremity swelling. Heart rate currently better controlled ranging from 80 to 100 bpm. Blood pressure is normotensive. Continues on Cardizem at 5 mg/h. Also, systemically heparinized per protocol. Chest x-ray done at our facility showing cardiomegaly, mild pulmonary vascular congestion, and possible retrocardiac infiltrate or atelectasis. Prior sternotomy wires noted. Patient states that he is going for heart catheterization Progress note dated June 13, 2024. 69-year-old male seen today in room 376. The patient is apparently scheduled to have a cardiac catheterization today. He continues on IV heparin, and saline at 20 cc an hour. He is got nasal O2, at 3 L. The patient is a DO NOT RESUSCITATE patient. The patient was transferred over from [facility]. Current laboratory data includes a white count 4.3, hemoglobin 11.9, hematocrit 37.2, and a platelet count of 402,000. PTT is 54.3. Sodium 140, potassium 3.7, chlorides 99, CO2 38, BUN 17, creatinine 0.82. Glucose was 110. Calcium is 8.5. The patient did test positive for coronavirus. Chest x-ray from yesterday shows a pattern consistent with mild CHF. Objective - Vital Signs Vital signs: Vital Signs Temp 97.6 F 06/13/24 11:31 Pulse 55 L 06/13/24 11:31 Resp 20 06/13/24 11:31 BP 96/58 06/13/24 11:31 Pulse Ox 92 L 06/13/24 11:31 FiO2 Intake & Output 06/12/24 06/13/24 06/13/24 18:59 06:59 18:59 Intake Total 368.0 316.946 84 Output Total 1300 1600 1275 Balance -932.0 -1283.054 -1191 Weight 97.2 kg Intake: Intake, IV Titration 250.0 316.946 84 Amount Amiodarone 450 mg In 66.946 Dextrose 5% in Water 250 ml @ 0.5 MG/MIN 16.667 mls/hr IV .Q15H [facility] Rx#: [id number] Heparin Sod,Pork in 0.45% 250.0 250 84 NaCl 25,000 unit In 0.45 % NaCl 1 250ml.bag @ 14. 423 UNITS/KG/HR 15 mls/hr IV .[id number] [facility] Rx#: [id number] Oral 118 Output: Urine 1300 1600 1275 Other: Voiding Method Urinal Urinal # Voids 3 0 # Bowel Movements 0 - Exam No acute distress, oriented 3. Currently on 3 L. HEENT examination is grossly unremarkable. Mucous membranes are moist. No oral lesions. Neck supple. Full range of motion. No adenopathy thyromegaly or neck vein distention. Cardiovascular examination reveals an irregular rhythm and rate. S1-S2 normal. No S3 or S4. No discernible murmur noted. Lungs reveal minimal basilar crackles. No wheezes. No rhonchi. Breath sounds are equal bilaterally. Abdomen soft bowel sounds are heard. No masses or tenderness. Extremities are intact. No cyanosis clubbing or edema. Skin is without rash or lesion. Neurologic examination is brief but nonfocal. - Labs CBC & Chem 7: 06/13/24 06:40 06/13/24 06:40 Labs: Abnormal Lab Results - Last 24 Hours (Table) 06/12/24 06/13/24 06/13/24 Range/Units 19:46 06:40 06:40 RBC 3.91 L (4.30-5.90) m/uL Hgb 11.9 L (13.0-17.5) gm/dL Hct 37.2 L (39.0-53.0) % Plt Count 102 L (150-450) k/uL APTT (22.0-30.0) sec Carbon Dioxide 38 H (22-30) mmol/L Glucose 110 H (74-99) mg/dL SARS-CoV-2 (PCR) Detected A (Not Detectd) 06/13/24 Range/Units 06:40 RBC (4.30-5.90) m/uL Hgb (13.0-17.5) gm/dL Hct (39.0-53.0) % Plt Count (150-450) k/uL APTT 54.3 H (22.0-30.0) sec Carbon Dioxide (22-30) mmol/L Glucose (74-99) mg/dL SARS-CoV-2 (PCR) (Not Detectd) Assessment and Plan Assessment: New onset atrial fibrillation with rapid ventricular rate. Suspect acute exacerbation of systolic congestive heart failure. Acute COPD exacerbation. Recent hospitalization at outside facility for COVID-19 and pneumonia. Acute hypoxemic respiratory failure, secondary to combination of above. Elevated troponins. Chronic ongoing tobacco dependence, down to 6 cigarettes/day. Reported history of pulmonary nodule. History of left hemidiaphragm paralysis, status post plication. History of heart failure with reduced ejection fraction. Coronary artery disease, with previous CABG and redo. History of angina. History of hyperlipidemia. History of hypertension. History of CVA/TIA. History of bilateral carotid artery stenosis, status post bilateral carotid endarterectomy. Plan: Plan dated June 13, 2024. The patient is seen today in room 376. The patient continues on nasal O2 at 3 L. He also continues on IV heparin, and saline at 20 cc an hour. The patient is scheduled for a heart catheterization today. The patient is a DO NOT RESUSCITATE patient. Labs, x-rays, and medications are reviewed. The patient is overall prognosis remains guarded. We will continue to follow with patient, make recommendations along the way. The patient did test positive for coronavirus. 15 minutes was spent with this patient, which included obtaining the history, examining the patient, reviewing pertinent laboratory data, x-rays, medications, as well as discussing the diagnosis, treatment, and prognosis, with the patient, and the patient's nursing staff. Dictation was produced using [employer] dictation software. Please excuse any grammatical, word or spelling errors. Time with Patient: Greater than 30
[2024-06-13] MEDS: NITROGLYCERIN 1000MCG/10ML SYRINGE INTRACORON ONE (13:51)
[2024-06-13] MEDS: niCARdipine Syringe (1,000 mcg/10 mL) INTRACORON ONE (13:51)
[2024-06-13] MEDS ORDERED: ATROPINE SULFATE 0.1 MG/ML 10ML SYRINGE IV PRN (14:03)
[2024-06-13] MEDS ORDERED: ZOLPIDEM 5 MG TAB PO PRN (14:03)
[2024-06-13] MEDS ORDERED: RX INFO: IV CONTRAST WAS GIVEN 1 EACH MISC MISCELLANE PRN (14:03)
[2024-06-13] MEDS ORDERED: MAG HYDROX/AL HYDROX/SIMETH 30 ML CUP PO PRN (14:03)
[2024-06-13] MEDS ORDERED: NITROGLYCERIN SL TABS 0.4 MG TAB SUBLINGUAL PRN (14:03)
[2024-06-13] MEDS: TICAGRELOR 90 MG TAB PO ONE (14:10)
--- NOTE | 2024-06-13 14:10 | P.PCN ---
Date of Procedure: 06/13/24 Operative Findings: CARDIAC CATHETERIZATION AND PERCUTANEOUS CORONARY INTERVENTION PERFORMING PHYSICIAN: Harsh Lagos MD, [facility] PROCEDURE PERFORMED: 1. Selective right and left coronary angiogram and left heart catheterization and BENITEZ to LAD angiogram and SVG to ramus angiogram and SVG to PLV of LCx an giogram as well 2. Successful stenting of left main and ramus intermedius using 3.5 x 23 mm Xience REBECCA with an excellent angiographic results 3. Adjunctive use of IVUS and lithotripsy balloon 4. Ultrasound-guided access of the left common femoral artery and left common femoral artery angiogram INDICATION: Acute non-ST relation myocardial infarction COMPLICATION: None APPROACH: Left common femoral artery LEVEL OF SEDATION: Moderate with the sedation time off 83 minutes PROCEDURE DESCRIPTION: After clinical informed consent the patient was brought to the cardiac [employer]. The left common femoral artery was cannulated using micropuncture technique under ultrasound guidance a micropuncture wire passed easily then I placed a 6 [place] 23 cm sheath at the left common femoral artery. After that I did selective left and right coronary angiogram using JL 4 and JR4 catheters. The BENITEZ to LAD angiogram and SVG to ramus angiogram and SVG to PLV of LCx angiogram performed using the JR4 catheter. Left heart catheterization was performed using a pigtail catheter with after that I did decide to intervene on the left main and ramus intermedius with anticoagulation was initiated using heparin with continuous ACT monitoring. Subsequently I did engage the left main using JL 4 guiding catheter. I did wired the left main and ramus intermedius and whisper wire. IVUS was performed and showed a diameter around 3.5 mm with heavily calcified vessel. Predilatation was performed using 1.5 mm balloon and 2 point open 2.5 mm balloon and 3 mm balloons. All of these balloon were noncompliant balloon. After that I did lithotripsy balloon and that was 3.5 mm after that I did deploy 3.5 x 23 mm Xience which was postdilated using 4 mm noncompliant balloon at the ostium of the left main was flared. Final angiogram showed excellent angiographic results and the procedure was completed with no complication SELECTIVE CORONARY ANGIOGRAM: The right coronary artery: Heavily calcified vessel and a dominant vessel with critical disease involving the distal portion Left main: Calcified with critical disease as well The left circumflex: Calcified with critical disease involving the ostium. The left circumflex is protected by a bypass The left anterior descending artery: Is occluded. Coronary bypasses angiogram The BENITEZ to LAD is patent The SVG to ramus intermedius is occluded The SVG to PLV of LCx is patent HEMODYNAMICS: LVEDP was about 14 mmHg with no significant gradient across aortic valve CONCLUSION: 1. Severe triple-vessel CAD 2. Patent BENITEZ to LAD 3. Occluded SVG to ramus intermedius. I did perform PCI of the distal left main and ramus intermedius 4. Patent graft to PLV of the LCx 5. The RCA has a critical disease distally and appears to be unprotected POSTPROCEDURE MANAGEMENT: 1. Dual antiplatelet therapy using aspirin and Brilinta for 12 month 2. PCI of the RCA
[2024-06-13] MEDS: SODIUM CHLORIDE 0.9% 1,000 ML in EMPTY BAG 1 BAG IV SCH (14:20)
[2024-06-13] MEDS: TICAGRELOR 90 MG TAB PO SCH (20:17)
[2024-06-13] MEDS: ALPRAZolam 0.25 MG TAB PO PRN (20:17)
--- NOTE | 2024-06-13 23:35 | PN ---
PROGRESS NOTE He had a heart catheterization with [address] Lagos. He continues to be on oxygen and breathing treatments. He is status post COVID 2 weeks ago with worsening shortness of breath. White count is 4.3, hemoglobin is 11.9, sodium 140, potassium 3.7, carbon dioxide 38. The titer of COVID on 06/12/2024, is still not feeling well respiratory kelly. He has to go home on oxygen after heart catheterization and continue with . Prognosis extremely guarded. Follow up in the office in a week or so. MMODL / IJN: [id number] /
[2024-06-14 07:36] LABS: African American GFR (CKD) >90 (>60 ml/min/1.73 sqM); Anion Gap 3 mmol/L; Blood Urea Nitrogen 17 mg/dL (9-20); Calcium 8.2 mg/dL (8.4-10.2); Carbon Dioxide 37 mmol/L (22-30); Chloride 99 mmol/L (98-107); Glucose 91 mg/dL (74-99); Non-African American GFR(CKD) >90 (>60 ml/min/1.73 sqM); Potassium 3.2 mmol/L (3.5-5.1); Sodium 139 mmol/L (137-145)
--- NOTE | 2024-06-14 12:58 | P.PN ---
Subjective Progress Note Date: 06/14/24 This is a 69-year-old male patient with past medical history of NSTEMI, multivessel CAD status post three-vessel CABG in 2011, peripheral artery disease status post femorofemoral bypass in 2011, ischemic cardiomyopathy with EF of 45%, carotid atherosclerosis status post carotid endarterectomy, hypertension, hyperlipidemia, CVA, renal cell carcinoma status post cryosurgery in 2007, COPD, chronic tobacco use and dependence ongoing. Patient also had a second bypass surgery for CAD in 2016. Patient had a recent hospitalization at [facility] for COPD exacerbation, COVID infection and pneumonia and was discharged on 06/09. Patient returned to the emergency center due to difficulty in breathing with progressively worsening shortness of breath. EKG was atrial fibrillation at 141 bpm.. He also had elevated troponins up to 2176, 2780, 2216. Chest x-ray showed mild cardiomegaly airspace opacities in the bilateral lower lung zones indicating pneumonia, small left pleural effusion. CT of the chest with contrast revealed small bilateral pleural effusions and persistent bibasilar opacities. Patient was started on a heparin drip, as well as, a bolus of Cardizem followed by IV Cardizem drip. Patient followed in the past with Dr. Melo and his last appointment was on 06/28/2016. He currently follows at the [facility]. Patient has been transferred to [facility] for further evaluation and cardiac catheterization. Patient has noted to have a congested cough. He remains in atrial fibrillation at 99 bpm. Patient states he continues to have shortness of breath and his breathing does not seem to be any better. He states he is unable to lay flat due to worsening shortness of breath. -Home cardiac medications: Coreg 12.5 mg twice daily, Plavix 75 mg daily, Jardiance 10 mg daily, Imdur 60 mg daily, Nitrostat as needed, Ranexa 500 mg every 12 hours, rosuvastatin 40 mg daily, Entresto 24-26 mg twice daily, spironolactone 25 mg daily. -Echocardiogram performed on 06/07/2024 at [facility] revealed left ventricle appears normal size. Global hypokinesis of the left ventricle. Mild concentric LVH, left ventricular systolic function is decreased to 30 to 35%. No significant valvular dysfunction. -CV surgery 04/19/2012: BENITEZ to LAD, SVG to diagonal, SVG to the RPDA. -Redo CABG 06/06/2016: Evidence of CAD both the lives in auto genus graft un derwent redo with CABG x 2 with BENITEZ to obtuse marginal, SVG with bypass of the posterior lateral branch. 06/14 Patient seen and examined. Yesterday, patient underwent cardiac cath yesterday with Dr. Lagos finding severe triple-vessel CAD, patent BENITEZ to LAD, occluded SVG to ramus intermedius, patent graft to PLV of the LCx, RCA has a critical disease distally and appears to be unprotected. Subsequently, patient underwent PCI of the distal left main and ramus intermedius. Plan for dual antiplatelet therapy with aspirin and Brilinta for 12 months and staged PCI of the RCA. Discussed results with the patient and he is agreeable to monitor overnight and plan for outpatient PCI. Patient is on heparin drip which we will discontinue today. His heart rate sinus rhythm with a controlled rate. He denies having any chest pain or chest pressure no shortness of breath. Blood pressure 144/66, heart rate 54, pulse ox 100% on 3 L nasal cannula. Repeat blood work reveals sodium 139, potassium 3.2, BUN 17 creatinine 0.77. Physical examination: Gen: This is a 69-year-old male in no acute distress VS: reviewed HEENT: Head is atraumatic, normocephalic. Pupils equal, round. Sclerae is anicteric. NECK: Supple. No JVD. LUNGS: Clear to auscultation. No wheezes or rhonchi. No intercostal retra ctions. HEART: Regular rate and rhythm. No murmur. ABDOMEN: Soft No tenderness. EXTREMITIES: No pedal edema. No calf tenderness. NEUROLOGICAL: Patient is awake, alert and oriented x3. Assessment: New onset paroxysmal atrial fibrillation with RVR NSTEMI Recent COVID infection and pneumonia COPD exacerbation Ischemic cardiomyopathy with EF 30 to 35% Multivessel CAD with previous CABG and redo CABG in 2017 Bilateral carotid artery stenosis status post endarterectomy Peripheral artery disease status post femorofemoral bypass left to right History of non-STEMI Hypertension Hyperlipidemia Chronic tobacco use and dependence, <1ppd Obesity Plan: Continue the following cardiac medications: Aspirin 81 mg daily, atorvastatin 80 mg daily, Coreg 25 mg twice daily, Farxiga 10 mg daily, Imdur 60 mg daily, Ranexa 500 mg every 12 hours Increase Entresto to 49 mg - 51 mg twice daily Continue IV Lasix 40 mg every 12 hours Monitor ESTELLE, daily weights, electrolytes and renal function Discontinue heparin drip Potassium replacement Plan to monitor patient overnight and discharge home tomorrow if patient is feeling well. Plan is for outpatient PCI of the RCA. Patient will follow-up with Dr. Lagos in 1 to 2 weeks. Nurse practitioner note has been reviewed, I agree with documented findings and plan of care. Patient was seen and examined. Objective - Vital Signs Vital signs: Vital Signs Temp 97.6 F 06/13/24 20:15 Pulse 54 L 06/14/24 04:00 Resp 20 06/14/24 04:00 BP 144/67 06/14/24 04:00 Pulse Ox 100 06/14/24 04:00 FiO2 Intake & Output 06/13/24 06/14/24 06/14/24 18:59 06:59 18:59 Intake Total 584 Output Total 2475 600 Balance -1891 -600 Weight 95.6 kg Intake: IV 500 Intake, IV Titration 84 Amount Heparin Sod,Pork in 0.45% 84 NaCl 25,000 unit In 0.45 % NaCl 1 250ml.bag @ 14. 423 UNITS/KG/HR 15 mls/hr IV .[id number] [facility] Rx#: [id number] Output: Urine 2475 600 Other: Voiding Method Urinal # Voids 0 # Bowel Movements 0 - Labs CBC & Chem 7: 06/13/24 06:40 06/14/24 06:35 Labs: Abnormal Lab Results - Last 24 Hours (Table) 06/14/24 Range/Units 06:35 Potassium 3.2 L (3.5-5.1) mmol/L Carbon Dioxide 37 H (22-30) mmol/L Calcium 8.2 L (8.4-10.2) mg/dL
[2024-06-14] MEDS: POTASSIUM CHLORIDE ER 20 MEQ TAB.ER PO STA (13:29)
--- NOTE | 2024-06-14 15:55 | P.PN ---
Subjective Progress Note Date: 06/14/24 Principal diagnosis: Chest pain. Patient is a 68-year-old white male with past medical history significant for COPD, chronic ongoing tobacco dependence, coronary artery disease with previous CABG and redo, left hemidiaphragm paralysis status/post plication, hypertension, hyperlipidemia, CVA/TIA, carotid artery stenosis status/post bilateral carotid endarterectomy, among other things. He follows at the [facility] for his primary care needs. Patient is known to have COPD, which is usually fairly well-controlled. He is unsure of his inhalers. Continues to smoke cigarettes approximately 6/day. Of note, patient recently hospitalized at [facility], reportedly for COVID-19 and pneumonia. Discharged from the outside facility on 06/09/2024, then returned yesterday with similar complaints of shortness of breath. While in the ER, noted to be in atrial fibrillation with rapid ventricular rate. His troponins were elevated. The patient was started on a combination of Cardizem at 5 mg/h, as well as, systemic IV heparin. Patient then transferred to [facility]. He is currently being evaluated on the cardiac stepdown unit. He is sitting at the edge of the bed. On 4 L/min nasal cannula. Not in any respiratory distress. His primary com plaint is shortness of breath. He has a nonproductive cough. Denies any fever/chills, sputum production, hemoptysis. Faint expiratory wheezes heard bilaterally. Denies any chest pain. Does endorse some lightheadedness and heart palpitations prior to going to the emergency department at [facility]. Denies any syncopal events, orthopnea, PND, lower extremity swelling. Heart rate currently better controlled ranging from 80 to 100 bpm. Blood pressure is normotensive. Continues on Cardizem at 5 mg/h. Also, systemically heparinized per protocol. Chest x-ray done at our facility showing cardiomegaly, mild pulmonary vascular congestion, and possible retrocardiac infiltrate or atelectasis. Prior sternotomy wires noted. Patient states that he is going for heart catheterization Progress note dated June 13, 2024. 69-year-old male seen today in room 376. The patient is apparently scheduled to have a cardiac catheterization today. He continues on IV heparin, and saline at 20 cc an hour. He is got nasal O2, at 3 L. The patient is a DO NOT RESUSCITATE patient. The patient was transferred over from [facility]. Current laboratory data includes a white count 4.3, hemoglobin 11.9, hematocrit 37.2, and a platelet count of 402,000. PTT is 54.3. Sodium 140, potassium 3.7, chlorides 99, CO2 38, BUN 17, creatinine 0.82. Glucose was 110. Calcium is 8.5. The patient did test positive for coronavirus. Chest x-ray from yesterday shows a pattern consistent with mild CHF. Progress note dated June 14, 2024. 69-year-old male seen today in room 376. The patient is resting comfortably in bed. He is on 3 L nasal cannula. He is not receiving any IV fluids. The patient did have a PCI, of his distal left main coronary artery, yesterday. The patient states that he might be discharged, and will be brought back, for another catheterization. He has a full code currently although previously he was a DO NOT RESUSCITATE patient. Current laboratory data includes a sodium 139, potassium 3.2, chlorides 99, CO2 37, BUN 17, creatinine 0.77. The patient did test positive for coronavirus. Objective - Vital Signs Vital signs: Vital Signs Temp 97.5 F L 06/14/24 12:15 Pulse 63 06/14/24 12:15 Resp 18 06/14/24 12:15 BP 101/58 06/14/24 12:15 Pulse Ox 94 L 06/14/24 12:15 FiO2 Intake & Output 06/13/24 06/14/24 06/14/24 18:59 06:59 18:59 Intake Total 584 890 Output Total 2475 600 600 Balance -1891 -600 290 Weight 95.6 kg Intake: IV 500 Intake, IV Titration 84 Amount Heparin Sod,Pork in 0.45% 84 NaCl 25,000 unit In 0.45 % NaCl 1 250ml.bag @ 14. 423 UNITS/KG/HR 15 mls/hr IV .[id number] [facility] Rx#: [id number] Oral 890 Output: Urine 2475 600 600 Other: Voiding Method Urinal # Voids 0 # Bowel Movements 0 0 - Exam No acute distress, oriented 3. Currently on 3 L. HEENT examination is grossly unremarkable. Mucous membranes are moist. No oral lesions. Neck supple. Full range of motion. No adenopathy thyromegaly or neck vein distention. Cardiovascular examination reveals an irregular rhythm and rate. S1-S2 normal. No S3 or S4. No discernible murmur noted. Lungs reveal minimal basilar crackles. No wheezes. No rhonchi. Breath sounds are equal bilaterally. Abdomen soft bowel sounds are heard. No masses or tenderness. Extremities are intact. No cyanosis clubbing or edema. Skin is without rash or lesion. Neurologic examination is brief but nonfocal. - Labs CBC & Chem 7: 06/13/24 06:40 06/14/24 06:35 Labs: Abnormal Lab Results - Last 24 Hours (Table) 06/14/24 Range/Units 06:35 Potassium 3.2 L (3.5-5.1) mmol/L Carbon Dioxide 37 H (22-30) mmol/L Calcium 8.2 L (8.4-10.2) mg/dL Assessment and Plan Assessment: New onset atrial fibrillation with rapid ventricular rate. S/P PCI, of his distal left main coronary artery, June 13, 2024. Suspect acute exacerbation of systolic congestive heart failure. Acute COPD exacerbation. Recent hospitalization at outside facility for COVID-19 and pneumonia. Acute hypoxemic respiratory failure, secondary to combination of above. Elevated troponins. Chronic ongoing tobacco dependence, down to 6 cigarettes/day. Reported history of pulmonary nodule. History of left hemidiaphragm paralysis, status post plication. History of heart failure with reduced ejection fraction. Coronary artery disease, with previous CABG and redo. History of angina. History of hyperlipidemia. History of hypertension. History of CVA/TIA. History of bilateral carotid artery stenosis, status post bilateral carotid endarterectomy. Plan: Plan dated June 13, 2024. The patient is seen today in room 376. The patient continues on nasal O2 at 3 L. He also continues on IV heparin, and saline at 20 cc an hour. The patient is scheduled for a heart catheterization today. The patient is a DO NOT RESUSCITATE patient. Labs, x-rays, and medications are reviewed. The patient is overall prognosis remains guarded. We will continue to follow with patient, make recommendations along the way. The patient did test positive for coronavirus. 50 minutes was spent with this patient, which included obtaining the history, examining the patient, reviewing pertinent laboratory data, x-rays, medications, as well as discussing the diagnosis, treatment, and prognosis, with the patient, and the patient's nursing staff. Dictation was produced using [employer] software. Please excuse any grammatical, word or spelling errors. Plan dated June 14, 2024. The patient is again seen in room 376. He appears to be relatively stable. He is not receiving any IV fluids. The patient is getting nasal O2 at 3 L. The patient apparently had a cardiac catheterization yesterday, and had PCI of his distal left main coronary artery. The patient said something about possibly coming back into the hospital next week, for another cardiac catheterization, and stent. The patient initially was a DO NOT RESUSCITATE patient. I see now he is a full code patient. Labs, x-rays, and all medications are reviewed. 50 minutes was spent with this patient, including obtaining a history, examining the patient, reviewing pertinent laboratory data, x-rays, medications, as well as discussing the diagnosis, treatment, prognosis, with the patient, and the patient's bedside nurse. Dictation was produced using [employer] software. Please excuse any grammatical, word or spelling errors. Time with Patient: Greater than 30
[2024-06-14 16:48] VITALS: BMI 29.4
--- NOTE | 2024-06-14 18:53 | P.PN ---
Progress Note - Text Progress Note Date: 06/14/24 June 14, 2024: I am rounding for Dr. Patrice Ambrose. Multiple medical issues. Sitting at edge of bed. Eating supper. Decreased cough. Eating fair. Decreased shortness of breath. Nasal cannula. Active Medications Al Hydroxide/Mg Hydroxide (Mag Hydrox/Al Hydrox/Simeth 30 Ml Cup) 30 ml PO Q4HR PRN PRN Reason: Heartburn Alprazolam (Alprazolam 0.25 Mg Tab) 0.25 mg PO Q6HR PRN PRN Reason: Mild Anxiety Last Admin: 06/13/24 20:17 Dose: 0.25 mg Alprazolam (Alprazolam 0.5 Mg Tab) 0.5 mg PO Q6HR PRN PRN Reason: Moderate Anxiety Last Admin: 06/13/24 06:33 Dose: 0.5 mg Aspirin (Aspirin 81 Mg) 81 mg PO DAILY [facility] Last Admin: 06/14/24 09:28 Dose: 81 mg Atorvastatin Calcium (Atorvastatin 80 Mg Tab) 80 mg PO DAILY [facility] Last Admin: 06/14/24 09:28 Dose: 80 mg Atropine Sulfate (Atropine Sulfate 0.1 Mg/Ml 10ml Syringe) 0.5 mg IV ONCE PRN PRN Reason: Symptomatic Bradycardia Benzonatate (Benzonatate 100 Mg Cap) 100 mg PO TID PRN PRN Reason: Cough Last Admin: 06/14/24 13:29 Dose: 100 mg Carvedilol (Carvedilol 12.5 Mg Tab) 25 mg PO BID-W/MEALS [facility] Last Admin: 06/14/24 17:17 Dose: 25 mg Dapagliflozin (Dapagliflozin Propanediol 10 Mg Tablet) 10 mg PO DAILY [facility] Last Admin: 06/14/24 09:30 Dose: 10 mg Fluticasone Propionate (Fluticasone Nasal 50mcg/[place] 16gm Btl) 2 spray EA NOSTRIL DAILY [facility] Last Admin: 06/14/24 09:30 Dose: 2 spray Fluticasone Propionate (Fluticasone 220 Mcg Inhaler) 2 puff INHALATION RT-BID [facility] Last Admin: 06/14/24 11:11 Dose: 2 puff Furosemide (Furosemide 10 Mg/Ml 4 Ml Vial) 40 mg IV Q12HR [facility] Last Admin: 06/14/24 09:27 Dose: 40 mg Guaifenesin/Dextromethorphan (Guaifenesin-Dm 600/30mg 1 Each Tab.Er.12h) 2 each PO Q12HR PRN PRN Reason: Cough Last Admin: 06/12/24 22:21 Dose: 2 each Isosorbide Mononitrate (Isosorbide Mononitrate Er 60 Mg Tab.Er.24h) 60 mg PO DAILY [facility] Last Admin: 06/14/24 09:28 Dose: 60 mg Loratadine (Loratadine 10 Mg Tab) 10 mg PO DAILY [facility] Last Admin: 06/14/24 09:30 Dose: 10 mg Miscellaneous Information (Rx Info: Iv Contrast Was Given 1 Each Misc) 1 each MISCELLANE DAILY PRN PRN Reason: Per Protocol Stop: 06/15/24 14:03 Nitroglycerin (Nitroglycerin Sl Tabs 0.4 Mg Tab) 0.4 mg SUBLINGUAL Q5M PRN PRN Reason: Chest Pain Prednisone (Prednisone 20 Mg Tab) 40 mg PO DAILY [facility] Last Admin: 06/14/24 09:29 Dose: 40 mg Ranolazine (Ranolazine 500 Mg Tab.Er.12h) 500 mg PO Q12HR [facility] Last Admin: 06/14/24 09:28 Dose: 500 mg Sacubitril/Valsartan (Sacubitril/Valsartan 49 Mg-51 Mg Tablet) 1 each PO BID [facility] Salmeterol Xinafoate (Salmeterol 50 Mcg Inhaler) 1 puff INHALATION RT-BID [facility] Last Admin: 06/14/24 11:11 Dose: 1 puff Spironolactone (Spironolactone 25 Mg Tab) 25 mg PO DAILY [facility] Last Admin: 06/14/24 09:30 Dose: 25 mg Ticagrelor (Ticagrelor 90 Mg Tab) 90 mg PO BID [facility]; Protocol Last Admin: 06/14/24 09:29 Dose: 90 mg Tiotropium [place] (Tiotropium 2.5 Mcg Inhaler) 2 puff INHALATION RT-DAILY [facility] Last Admin: 06/14/24 11:11 Dose: 2 puff Zolpidem Tartrate (Zolpidem 5 Mg Tab) 5 mg PO HS PRN PRN Reason: Insomnia On examination: VITAL SIGNS: [98.1, 66, 18, 159 x 78, 93% on 3 L] GENERAL APPEARANCE: BMI 29.4, sitting edge of the bed, eating supper HEENT: Normal external appearance of nose and ear. Oral cavity normal EYES: Pupils equal. Conjunctiva normal. NECK: JVD not raised. Mass not palpable. RESPIRATORY: Respiratory effort increased, diminished breath sounds CARDIOVASCULAR: First and second sounds normal. No edema. ABDOMEN: Soft. Liver and spleen not palpable. No tenderness. No mass palpable. PSYCHIATRY: Alert and oriented x3. Mood and affect normal. INVESTIGATIONS, reviewed in the clinical context: June 14: Sodium 139 potassium 3.2 creatinine 0.77 SARS-CoV-2: Detected Assessment plan: -New onset atrial fibrillation rapid ventricular rate -CAD with angioplasty of distal left main June 13. Plan for staged RCA intervention in [address] Lagos -Acute exacerbation of systolic congestive heart failure, EF 30-35% -PAD status post femorofemoral bypass left right. -Acute COPD exacerbation, and a cigarette smoker -Acute hypoxic respiratory failure from above -Chronic nicotine dependence cigarette smoker -CAD with a prior history of coronary bypass in 2011, redo in 2017 -Hyperlipidemia -Essential hypertension -Renal cell carcinoma with history of cryosurgery in 2007 Patient is currently on aspirin, Lipitor, Coreg, Farxiga IV Lasix 40 mg every 12, Imdur, oral prednisone, Ranexa, Entresto Serevent, Aldactone Brilinta Spiriva. Increase activity as tolerated.
[2024-06-14] MEDS: SACUBITRIL/VALSARTAN 49 MG-51 MG TABLET PO SCH (21:01)
--- NOTE | 2024-06-15 14:04 | P.PN ---
Subjective Progress Note Date: 06/15/24 Patient is a 68-year-old white male with past medical history significant for COPD, chronic ongoing tobacco dependence, coronary artery disease with previous CABG and redo, left hemidiaphragm paralysis status/post plication, hypertension, hyperlipidemia, CVA/TIA, carotid artery stenosis status/post bilateral carotid endarterectomy, among other things. He follows at the [facility] for his primary care needs. Patient is known to have COPD, which is usually fairly well-controlled. He is unsure of his inhalers. Continues to smoke cigarettes approximately 6/day. Of note, patient recently hospitalized at [facility], reportedly for COVID-19 and pneumonia. [facility], then returned yesterday with similar complaints of shortness of breath. While in the ER, noted to be in atrial fibrillation with rapid ventricular rate. His troponins were elevated. The patient was started on a combination of Cardizem at 5 mg/h, as well as, systemic IV heparin. Patient then transferred to [facility]. He is currently being evaluated on the cardiac stepdown unit. He is sitting at the edge of the bed. On 4 L/min nasal cannula. Not in any respiratory distress. His primary complaint is shortness of breath. He has a nonproductive cough. Denies any fever/chills, sputum production, hemoptysis. Faint expiratory wheezes heard bilaterally. Denies any chest pain. Does endorse some lightheadedness and heart palpitations prior to going to the emergency department at [facility]. Denies any syncopal events, orthopnea, PND, lower extremity swelling. Heart rate currently better controlled ranging from 80 to 100 bpm. B lood pressure is normotensive. Continues on Cardizem at 5 mg/h. Also, systemically heparinized per protocol. Chest x-ray done at our facility showing cardiomegaly, mild pulmonary vascular congestion, and possible retrocardiac infiltrate or atelectasis. Prior sternotomy wires noted. Patient states that he is going for heart catheterization Progress note dated June 13, 2024. 69-year-old male seen today in room 376. The patient is apparently scheduled to have a cardiac catheterization today. He continues on IV heparin, and saline at 20 cc an hour. He is got nasal O2, at 3 L. The patient is a DO NOT RESUSCITATE patient. The patient was transferred over from [facility]. Current laboratory data includes a white count 4.3, hemoglobin 11.9, hematocrit 37.2, and a platelet count of 402,000. PTT is 54.3. Sodium 140, potassium 3.7, chlorides 99, CO2 38, BUN 17, creatinine 0.82. Glucose was 110. Calcium is 8.5. The patient did test positive for coronavirus. Chest x-ray from yesterday shows a pattern consistent with mild CHF. Progress note dated June 14, 2024. 69-year-old male seen today in room 376. The patient is resting comfortably in bed. He is on 3 L nasal cannula. He is not receiving any IV fluids. The patient did have a PCI, of his distal left main coronary artery, yesterday. The patient states that he might be discharged, and will be brought back, for another catheterization. He has a full code currently although previously he was a DO NOT RESUSCITATE patient. Current laboratory data includes a sodium 139, potassium 3.2, chlorides 99, CO2 37, BUN 17, creatinine 0.77. The patient did test positive for coronavirus. The patient is seen today June 15, 2024 in follow-up on the selective care unit. He is currently resting comfortably in bed. Awake and alert in no acute distress. Denies any worsening shortness of breath, cough or congestion. Denies any chest pain. He is maintaining O2 saturations in the 90s on 3 L/min per nasal cannula. He remains on IV diuretics. Continued on Spiriva and Serevent and Flovent. Continued on a prednisone taper. Continued on Tessalon Perles. Earlene on Brilinta and aspirin. Currently in a -170 mL balance. Objective - Vital Signs Vital signs: Vital Signs Temp 97.3 F L 06/15/24 08:00 Pulse 54 L 06/15/24 08:00 Resp 18 06/15/24 08:00 BP 115/65 06/15/24 08:00 Pulse Ox 94 L 06/15/24 09:14 FiO2 Intake & Output 06/14/24 06/15/24 06/15/24 18:59 06:59 18:59 Intake Total 1430 358 Output Total 1100 500 Balance 330 -500 358 Weight 95.6 kg 96.5 kg Intake: Oral 1430 358 Output: Urine 1100 500 Other: Voiding Method Urinal # Voids 2 # Bowel Movements 0 - Exam GENERAL EXAM: Alert, active, 69-year-old male, on 3 L nasal cannula, comfortable in no apparent distress. HEAD: Normocephalic. EYES: Normal reaction of pupils, equal size. NOSE: Clear with pink turbinates. THROAT: No erythema or exudates. NECK: No masses, no JVD. CHEST: No chest wall deformity. LUNGS: Equal air entry with no crackles, wheeze, rhonchi or dullness. CVS: S1 and S2 normal with no audible murmur, regular rhythm. ABDOMEN: No hepatosplenomegaly, normal bowel sounds, no guarding or rigidity. SPINE: No scoliosis or deformity SKIN: No rashes CENTRAL NERVOUS SYSTEM: No focal deficits, tone is normal in all 4 extremities. EXTREMITIES: There is no peripheral edema. No clubbing, no cyanosis. Peripheral pulses are intact. - Labs CBC & Chem 7: 06/13/24 06:40 06/14/24 06:35 Assessment and Plan Assessment: New onset atrial fibrillation with rapid ventricular rate, had been on a heparin drip S/P PCI of his distal left main coronary artery, June 13, 2024 Suspect acute exacerbation of systolic congestive heart failure Acute COPD exacerbation Acute hypoxemic respiratory failure, secondary to combination of above Recent hospitalization at outside facility for COVID-19 and pneumonia. Still positive for COVID 06/12/2024 Elevated troponins Chronic ongoing tobacco dependence, down to 6 cigarettes/day Reported history of pulmonary nodule History of left hemidiaphragm paralysis, status post plication History of heart failure with reduced ejection fraction Coronary artery disease, with previous CABG and redo History of angina History of hyperlipidemia History of hypertension History of CVA/TIA History of bilateral carotid artery stenosis, status post bilateral carotid endarterectomy. Plan: The patient was seen and evaluated Labs and medications reviewed Stable and on 3 L nasal cannula Plan is for PCI of the RCA on 06/17/2024 We will continue to follow I have personally seen and examined the patient, performed the documentation and the assessment and plan as written. Number of minutes spent on the visit: 20 Dictation was produced using [employer] dictation software. Please excuse any grammatical, word or spelling errors.
--- NOTE | 2024-06-15 19:50 | P.PN ---
Progress Note - Text Progress Note Date: 06/15/24 I am rounding for Dr. Patrice Ambrose. June 14, 2024: Multiple medical issues. Sitting at edge of bed. Eating supper. Decreased cough. Eating fair. Decreased shortness of breath. Nasal cannula. June 15, 2024: Resting bed. No chest pain. Breathing stable. Patient informed me that he will have further intervention by Dr. Lagos on Monday. Has been in sinus rhythm. Active Medications Al Hydroxide/Mg Hydroxide (Mag Hydrox/Al Hydrox/Simeth 30 Ml Cup) 30 ml PO Q4HR PRN PRN Reason: Heartburn Alprazolam (Alprazolam 0.25 Mg Tab) 0.25 mg PO Q6HR PRN PRN Reason: Mild Anxiety Last Admin: 06/13/24 20:17 Dose: 0.25 mg Alprazolam (Alprazolam 0.5 Mg Tab) 0.5 mg PO Q6HR PRN PRN Reason: Moderate Anxiety Last Admin: 06/13/24 06:33 Dose: 0.5 mg Aspirin (Aspirin 81 Mg) 81 mg PO DAILY [facility] Last Admin: 06/15/24 08:46 Dose: 81 mg Atorvastatin Calcium (Atorvastatin 80 Mg Tab) 80 mg PO DAILY [facility] Last Admin: 06/15/24 08:46 Dose: 80 mg Atropine Sulfate (Atropine Sulfate 0.1 Mg/Ml 10ml Syringe) 0.5 mg IV ONCE PRN PRN Reason: Symptomatic Bradycardia Benzonatate (Benzonatate 100 Mg Cap) 100 mg PO TID PRN PRN Reason: Cough Last Admin: 06/14/24 13:29 Dose: 100 mg Carvedilol (Carvedilol 12.5 Mg Tab) 25 mg PO BID-W/MEALS [facility] Last Admin: 06/15/24 17:30 Dose: 25 mg Dapagliflozin (Dapagliflozin Propanediol 10 Mg Tablet) 10 mg PO DAILY [facility] Last Admin: 06/15/24 08:47 Dose: 10 mg Fluticasone Propionate (Fluticasone Nasal 50mcg/[place] 16gm Btl) 2 spray EA NOSTRIL DAILY [facility] Last Admin: 06/15/24 08:46 Dose: 2 spray Fluticasone Propionate (Fluticasone 220 Mcg Inhaler) 2 puff INHALATION RT-BID [facility] Last Admin: 06/15/24 09:08 Dose: 2 puff Furosemide (Furosemide 10 Mg/Ml 4 Ml Vial) 40 mg IV Q12HR [facility] Last Admin: 06/15/24 08:47 Dose: 40 mg Guaifenesin/Dextromethorphan (Guaifenesin-Dm 600/30mg 1 Each Tab.Er.12h) 2 each PO Q12HR PRN PRN Reason: Cough Last Admin: 06/12/24 22:21 Dose: 2 each Isosorbide Mononitrate (Isosorbide Mononitrate Er 60 Mg Tab.Er.24h) 60 mg PO DAILY [facility] Last Admin: 06/15/24 08:46 Dose: 60 mg Loratadine (Loratadine 10 Mg Tab) 10 mg PO DAILY [facility] Last Admin: 06/15/24 08:47 Dose: 10 mg Nitroglycerin (Nitroglycerin Sl Tabs 0.4 Mg Tab) 0.4 mg SUBLINGUAL Q5M PRN PRN Reason: Chest Pain Prednisone (Prednisone 20 Mg Tab) 40 mg PO DAILY [facility] Last Admin: 06/15/24 08:46 Dose: 40 mg Ranolazine (Ranolazine 500 Mg Tab.Er.12h) 500 mg PO Q12HR [facility] Last Admin: 06/15/24 08:46 Dose: 500 mg Sacubitril/Valsartan (Sacubitril/Valsartan 49 Mg-51 Mg Tablet) 1 each PO BID [facility] Last Admin: 06/15/24 08:46 Dose: 1 each Salmeterol Xinafoate (Salmeterol 50 Mcg Inhaler) 1 puff INHALATION RT-BID [facility] Last Admin: 06/15/24 09:08 Dose: 1 puff Spironolactone (Spironolactone 25 Mg Tab) 25 mg PO DAILY [facility] Last Admin: 06/15/24 08:47 Dose: 25 mg Ticagrelor (Ticagrelor 90 Mg Tab) 90 mg PO BID [facility]; Protocol Last Admin: 06/15/24 08:46 Dose: 90 mg Tiotropium Pelican (Tiotropium 2.5 Mcg Inhaler) 2 puff INHALATION RT-DAILY [facility] Last Admin: 06/15/24 09:08 Dose: 2 puff Zolpidem Tartrate (Zolpidem 5 Mg Tab) 5 mg PO HS PRN PRN Reason: Insomnia On examination: VITAL SIGNS: 55, 18, 102 x 65, 98% on 2 L GENERAL APPEARANCE: BMI 29.4, comfortable HEENT: Normal external appearance of nose and ear. Oral cavity normal EYES: Pupils equal. Conjunctiva normal. NECK: JVD not raised. Mass not palpable. RESPIRATORY: Respiratory effort i normal, diminished breath sounds CARDIOVASCULAR: First and second sounds normal. No edema. ABDOMEN: Soft. Liver and spleen not palpable. No tenderness. No mass palpable. PSYCHIATRY: Alert and oriented x3. Mood and affect normal. INVESTIGATIONS, reviewed in the clinical context: June 14: Sodium 139 potassium 3.2 creatinine 0.77 SARS-CoV-2: Detected Assessment plan: -Paroxysmal atrial fibrillation rapid ventricular rate, on presentation. Now in sinus rhythm -CAD with angioplasty of distal left main June 13. Plan for staged RCA intervention in [address] Lagos -Acute exacerbation of systolic congestive heart failure, EF 30-35%: Clinically improved -PAD status post femorofemoral bypass left right. -Acute COPD exacerbation, and a cigarette smoker: Stable -Acute hypoxic respiratory failure from above, currently on 2 L -Chronic nicotine dependence cigarette smoker -CAD with a prior history of coronary bypass in 2011, redo in 2016 -Hyperlipidemia -Essential hypertension -Renal cell carcinoma with history of cryosurgery in 2007 Continue current treatment plan. Will check with college about DC plan as it seems a redo was to be done in couple of weeks.
[2024-06-16 08:29] LABS: African American GFR (CKD) >90 (>60 ml/min/1.73 sqM); Anion Gap 1 mmol/L; Blood Urea Nitrogen 24 mg/dL (9-20); Calcium 8.8 mg/dL (8.4-10.2); Carbon Dioxide 39 mmol/L (22-30); Chloride 99 mmol/L (98-107); Glucose 95 mg/dL (74-99); Non-African American GFR(CKD) 88 (>60 ml/min/1.73 sqM); Potassium 3.8 mmol/L (3.5-5.1); Sodium 139 mmol/L (137-145)
--- NOTE | 2024-06-16 12:21 | P.PN ---
Subjective Progress Note Date: 06/16/24 Principal diagnosis: Chest pain. Patient is a 68-year-old white male with past medical history significant for COPD, chronic ongoing tobacco dependence, coronary artery disease with previous CABG and redo, left hemidiaphragm paralysis status/post plication, hypertension, hyperlipidemia, CVA/TIA, carotid artery stenosis status/post bilateral carotid endarterectomy, among other things. He follows at the [facility] for his primary care needs. Patient is known to have COPD, which is usually fairly well-controlled. He is unsure of his inhalers. Continues to smoke cigarettes approximately 6/day. Of note, patient recently hospitalized at [facility], reportedly for COVID-19 and pneumonia. Discharged from the outside facility on 06/09/2024, then returned yesterday with similar complaints of shortness of breath. While in the ER, noted to be in atrial fibrillation with rapid ventricular rate. His troponins were elevated. The patient was started on a combination of Cardizem at 5 mg/h, as well as, systemic IV heparin. Patient then transferred to [facility]. He is currently being evaluated on the cardiac stepdown unit. He is sitting at the edge of the bed. On 4 L/min nasal cannula. Not in any respiratory distress. His primary com plaint is shortness of breath. He has a nonproductive cough. Denies any fever/chills, sputum production, hemoptysis. Faint expiratory wheezes heard bilaterally. Denies any chest pain. Does endorse some lightheadedness and heart palpitations prior to going to the emergency department at [facility]. Denies any syncopal events, orthopnea, PND, lower extremity swelling. Heart rate currently better controlled ranging from 80 to 100 bpm. Blood pressure is normotensive. Continues on Cardizem at 5 mg/h. Also, systemically heparinized per protocol. Chest x-ray done at our facility showing cardiomegaly, mild pulmonary vascular congestion, and possible retrocardiac infiltrate or atelectasis. Prior sternotomy wires noted. Patient states that he is going for heart catheterization Progress note dated June 13, 2024. 69-year-old male seen today in room 376. The patient is apparently scheduled to have a cardiac catheterization today. He continues on IV heparin, and saline at 20 cc an hour. He is got nasal O2, at 3 L. The patient is a DO NOT RESUSCITATE patient. The patient was transferred over from [facility]. Current laboratory data includes a white count 4.3, hemoglobin 11.9, hematocrit 37.2, and a platelet count of 402,000. PTT is 54.3. Sodium 140, potassium 3.7, chlorides 99, CO2 38, BUN 17, creatinine 0.82. Glucose was 110. Calcium is 8.5. The patient did test positive for coronavirus. Chest x-ray from yesterday shows a pattern consistent with mild CHF. Progress note dated June 14, 2024. 69-year-old male seen today in room 376. The patient is resting comfortably in bed. He is on 3 L nasal cannula. He is not receiving any IV fluids. The patient did have a PCI, of his distal left main coronary artery, yesterday. The patient states that he might be discharged, and will be brought back, for another catheterization. He has a full code currently although previously he was a DO NOT RESUSCITATE patient. Current laboratory data includes a sodium 139, potassium 3.2, chlorides 99, CO2 37, BUN 17, creatinine 0.77. The patient did test positive for coronavirus. The patient is seen today June 15, 2024 in follow-up on the selective care unit. He is currently resting comfortably in bed. Awake and alert in no acute distress. Denies any worsening shortness of breath, cough or congestion. Denies any chest pain. He is maintaining O2 saturations in the 90s on 3 L/min per nasal cannula. He remains on IV diuretics. Continued on Spiriva and Serevent and Flovent. Continued on a prednisone taper. Continued on Tessalon Perles. Earlene on Brilinta and aspirin. Currently in a -170 mL balance. Progress note dated June 16, 2024. The patient is seen today in room 376. The patient continues on 2 L of oxygen. No IV fluids. The patient tells me he is scheduled for cardiac catheterization tomorrow, June 17. He denies any shortness of breath, cough, wheezing, chest tightness, or phlegm production. He also denies any chest pain or pressure, palpitations, fluttering, etc. Current laboratory data includes a sodium 139, potassium 3.8, chlorides 99, CO2 39, BUN 24, creatinine 0.85. Glucose is 95. Calcium is 8.8. Objective - Vital Signs Vital signs: Vital Signs Temp 97.7 F 06/16/24 08:00 Pulse 52 L 06/16/24 11:21 Resp 18 06/16/24 11:21 BP 89/50 06/16/24 11:21 Pulse Ox 93 L 06/16/24 11:21 FiO2 Intake & Output 06/15/24 06/16/24 06/16/24 18:59 06:59 18:59 Intake Total 476 118 Output Total 300 Balance 476 -300 118 Weight 62.5 kg Intake: Oral 476 118 Output: Urine 300 Other: # Voids 2 - Exam GENERAL EXAM: Alert, active, 69-year-old male, on 3 L nasal cannula, comfortable in no apparent distress. HEAD: Normocephalic. EYES: Normal reaction of pupils, equal size. NOSE: Clear with pink turbinates. THROAT: No erythema or exudates. NECK: No masses, no JVD. CHEST: No chest wall deformity. LUNGS: Equal air entry with no crackles, wheeze, rhonchi or dullness. CVS: S1 and S2 normal with no audible murmur, regular rhythm. ABDOMEN: No hepatosplenomegaly, normal bowel sounds, no guarding or rigidity. SPINE: No scoliosis or deformity SKIN: No rashes CENTRAL NERVOUS SYSTEM: No focal deficits, tone is normal in all 4 extremities. EXTREMITIES: There is no peripheral edema. No clubbing, no cyanosis. Perip heral pulses are intact. - Labs CBC & Chem 7: 06/13/24 06:40 06/16/24 07:44 Labs: Abnormal Lab Results - Last 24 Hours (Table) 06/16/24 Range/Units 07:44 Carbon Dioxide 39 H (22-30) mmol/L BUN 24 H (9-20) mg/dL Assessment and Plan Assessment: New onset atrial fibrillation with rapid ventricular rate. S/P PCI, of his distal left main coronary artery, June 13, 2024. Suspect acute exacerbation of systolic congestive heart failure. Acute COPD exacerbation. Recent hospitalization at outside facility for COVID-19 and pneumonia. Acute hypoxemic respiratory failure, secondary to combination of above. Elevated troponins. Chronic ongoing tobacco dependence, down to 6 cigarettes/day. Reported history of pulmonary nodule. History of left hemidiaphragm paralysis, status post plication. History of heart failure with reduced ejection fraction. Coronary artery disease, with previous CABG and redo. History of angina. History of hyperlipidemia. History of hypertension. History of CVA/TIA. History of bilateral carotid artery stenosis, status post bilateral carotid endarterectomy. Plan: Plan dated June 13, 2024. The patient is seen today in room 376. The patient continues on nasal O2 at 3 L. He also continues on IV heparin, and saline at 20 cc an hour. The patient is scheduled for a heart catheterization today. The patient is a DO NOT RESUSCITATE patient. Labs, x-rays, and medications are reviewed. The patient is overall prognosis remains guarded. We will continue to follow with patient, make recommendations along the way. The patient did test positive for coronavirus. 50 minutes was spent with this patient, which included obtaining the history, examining the patient, reviewing pertinent laboratory data, x-rays, medications, as well as discussing the diagnosis, treatment, and prognosis, with the patient, and the patient's nursing staff. Dictation was produced using [employer] software. Please excuse any grammatical, word or spelling errors. Plan dated June 14, 2024. The patient is again seen in room 376. He appears to be relatively stable. He is not receiving any IV fluids. The patient is getting nasal O2 at 3 L. The patient apparently had a cardiac catheterization yesterday, and had PCI of his distal left main coronary artery. The patient said something about possibly coming back into the hospital next week, for another cardiac catheterization, and stent. The patient initially was a DO NOT RESUSCITATE patient. I see now he is a full code patient. Labs, x-rays, and all medications are reviewed. 50 minutes was spent with this patient, including obtaining a history, examining the patient, reviewing pertinent laboratory data, x-rays, medications, as well as discussing the diagnosis, treatment, prognosis, with the patient, and the patient's bedside nurse. Dictation was produced using [employer] software. Please excuse any grammatical, word or spelling errors. Plan dated June 16, 2024. The patient is seen today in room 376. The patient is currently on 2 L of oxygen. No IV fluids. The patient apparently scheduled to have a repeat car diac catheterization tomorrow, June 17. All labs, x-rays, and medications are reviewed. The patient is asymptomatic. He denies any chest pain or pressure. Likewise, he denies any shortness of breath, cough, wheezing, chest tightness, or phlegm production. The patient is a DO NOT RESUSCITATE patient. Apparently he has been made full code, for the catheterization. 50 minutes was spent with this patient, which included obtaining additional history, examining the patient, reviewing pertinent laboratory data, x-rays, and medications, as well as discussing the diagnosis, treatment, and prognosis, with the patient, and the patient's nursing staff. Time with Patient: Greater than 30
--- NOTE | 2024-06-16 16:57 | P.PN ---
Subjective Progress Note Date: 06/15/24 This is a 69-year-old male patient with past medical history of NSTEMI, multivessel CAD status post three-vessel CABG in 2011, peripheral artery disease status post femorofemoral bypass in 2011, ischemic cardiomyopathy with EF of 45%, carotid atherosclerosis status post carotid endarterectomy, hypertension, hyperlipidemia, CVA, renal cell carcinoma status post cryosurgery in 2007, COPD, chronic tobacco use and dependence ongoing. Patient also had a second bypass surgery for CAD in 2016. Patient had a recent hospitalization at [facility] for COPD exacerbation, COVID infection and pneumonia and was discharged on 06/09. Patient returned to the emergency center due to difficulty in breathing with progressively worsening shortness of breath. EKG was atrial fibrillation at 141 bpm.. He also had elevated troponins up to 2176, 2780, 2216. Chest x-ray showed mild cardiomegaly airspace opacities in the bilateral lower lung zones indicating pneumonia, small left pleural effusion. CT of the chest with contrast revealed small bilateral pleural effusions and persistent bibasilar opacities. Patient was started on a heparin drip, as well as, a bolus of Cardizem followed by IV Cardizem drip. Patient followed in the past with Dr. Melo and his last appointment was on 06/28/2016. He currently follows at the [facility]. Patient has been transferred to [facility] for further evaluation and cardiac catheterization. Patient has noted to have a congested cough. He remains in atrial fibrillation at 99 bpm. Patient states he continues to have shortness of breath and his breathing does not seem to be any better. He states he is unable to lay flat due to worsening shortness of breath. -Home cardiac medications: Coreg 12.5 mg twice daily, Plavix 75 mg daily, Jardiance 10 mg daily, Imdur 60 mg daily, Nitrostat as needed, Ranexa 500 mg every 12 hours, rosuvastatin 40 mg daily, Entresto 24-26 mg twice daily, spironolactone 25 mg daily. -Echocardiogram performed on 06/07/2024 at [facility] revealed left ventricle appears normal size. Global hypokinesis of the left ventricle. Mild concentric LVH, left ventricular systolic function is decreased to 30 to 35%. No significant valvular dysfunction. -CV surgery 04/19/2012: BENITEZ to LAD, SVG to diagonal, SVG to the RPDA. -Redo CABG 06/06/2016: Evidence of CAD both the lives in auto genus graft un derwent redo with CABG x 2 with BENITEZ to obtuse marginal, SVG with bypass of the posterior lateral branch. 06/14 Patient seen and examined. Yesterday, patient underwent cardiac cath yesterday with Dr. Lagos finding severe triple-vessel CAD, patent BENITEZ to LAD, occluded SVG to ramus intermedius, patent graft to PLV of the LCx, RCA has a critical disease distally and appears to be unprotected. Subsequently, patient underwent PCI of the distal left main and ramus intermedius. Plan for dual antiplatelet therapy with aspirin and Brilinta for 12 months and staged PCI of the RCA. Discussed results with the patient and he is agreeable to monitor overnight and plan for outpatient PCI. Patient is on heparin drip which we will discontinue today. His heart rate sinus rhythm with a controlled rate. He denies having any chest pain or chest pressure no shortness of breath. Blood pressure 144/66, heart rate 54, pulse ox 100% on 3 L nasal cannula. Repeat blood work reveals sodium 139, potassium 3.2, BUN 17 creatinine 0.77. 06/15/2024 Patient is seen and examined at bedside this a.m. Patient is very apprehensive to go home. He would like to get his intervention done for his RCA during this hospitalization. He requested me to do so because he does not have any transportation to have frequent follow-ups and come to the hospital. He is also appearing to be mildly volume overloaded requiring the need for IV diuretics. He still recovering from his COVID-pneumonia. Physical examination: Gen: This is a 69-year-old male in no acute distress VS: reviewed HEENT: Head is atraumatic, normocephalic. Pupils equal, round. Sclerae is anicteric. NECK: Supple. No JVD. LUNGS: Clear to auscultation. No wheezes or rhonchi. No intercostal retractions. HEART: Regular rate and rhythm. No murmur. ABDOMEN: Soft No tenderness. EXTREMITIES: No pedal edema. No calf tenderness. NEUROLOGICAL: Patient is awake, alert and oriented x3. Assessment: New onset paroxysmal atrial fibrillation with RVR NSTEMI Recent COVID infection and pneumonia COPD exacerbation Ischemic cardiomyopathy with EF 30 to 35% Multivessel CAD with previous CABG and redo CABG in 2017 Bilateral carotid artery stenosis status post endarterectomy Peripheral artery disease status post femorofemoral bypass left to right History of non-STEMI Hypertension Hyperlipidemia Chronic tobacco use and dependence, <1ppd Obesity Plan: Continue the following cardiac medications: Aspirin 81 mg daily, atorvastatin 80 mg daily, Coreg 25 mg twice daily, Farxiga 10 mg daily, Imdur 60 mg daily, Ranexa 500 mg every 12 hours Continue Entresto to 49 mg - 51 mg twice daily Continue IV Lasix 40 mg every 12 hours Monitor ESTELLE, daily weights, electrolytes and renal function Discontinue heparin drip Potassium replacement Patient would like to get his RCA intervention done during this hospitalization as he has problem with transportation and follow-ups. Plan for staged PCI of RCA on Monday. Objective - Vital Signs Vital signs: Vital Signs Temp 97.7 F 06/16/24 08:00 Pulse 53 L 06/16/24 14:00 Resp 18 06/16/24 14:00 BP 89/50 06/16/24 11:21 Pulse Ox 93 L 06/16/24 11:21 FiO2 Intake & Output 06/15/24 06/16/24 06/16/24 18:59 06:59 18:59 Intake Total 476 236 Output Total 300 Balance 476 -300 236 Weight 62.5 kg Intake: Oral 476 236 Output: Urine 300 Other: # Voids 2 2 - Labs CBC & Chem 7: 06/13/24 06:40 06/16/24 07:44 Labs: Abnormal Lab Results - Last 24 Hours (Table) 06/16/24 Range/Units 07:44 Carbon Dioxide 39 H (22-30) mmol/L BUN 24 H (9-20) mg/dL
--- NOTE | 2024-06-16 17:00 | P.PN ---
Subjective Progress Note Date: 06/16/24 This is a 69-year-old male patient with past medical history of NSTEMI, multivessel CAD status post three-vessel CABG in 2011, peripheral artery disease status post femorofemoral bypass in 2011, ischemic cardiomyopathy with EF of 45%, carotid atherosclerosis status post carotid endarterectomy, hypertension, hyperlipidemia, CVA, renal cell carcinoma status post cryosurgery in 2007, COPD, chronic tobacco use and dependence ongoing. Patient also had a second bypass surgery for CAD in 2016. Patient had a recent hospitalization at [facility] for COPD exacerbation, COVID infection and pneumonia and was discharged on 06/09. Patient returned to the emergency center due to difficulty in breathing with progressively worsening shortness of breath. EKG was atrial fibrillation at 141 bpm.. He also had elevated troponins up to 2176, 2780, 2216. Chest x-ray showed mild cardiomegaly airspace opacities in the bilateral lower lung zones indicating pneumonia, small left pleural effusion. CT of the chest with contrast revealed small bilateral pleural effusions and persistent bibasilar opacities. Patient was started on a heparin drip, as well as, a bolus of Cardizem followed by IV Cardizem drip. Patient followed in the past with Dr. Melo and his last appointment was on 06/28/2016. He currently follows at the [facility]. Patient has been transferred to [facility] for further evaluation and cardiac catheterization. Patient has noted to have a congested cough. He remains in atrial fibrillation at 99 bpm. Patient states he continues to have shortness of breath and his breathing does not seem to be any better. He states he is unable to lay flat due to worsening shortness of breath. -Home cardiac medications: Coreg 12.5 mg twice daily, Plavix 75 mg daily, Jardiance 10 mg daily, Imdur 60 mg daily, Nitrostat as needed, Ranexa 500 mg every 12 hours, rosuvastatin 40 mg daily, Entresto 24-26 mg twice daily, spironolactone 25 mg daily. -Echocardiogram performed on 06/07/2024 at [facility] revealed left ventricle appears normal size. Global hypokinesis of the left ventricle. Mild concentric LVH, left ventricular systolic function is decreased to 30 to 35%. No significant valvular dysfunction. -CV surgery 04/19/2012: BENITEZ to LAD, SVG to diagonal, SVG to the RPDA. -Redo CABG 06/06/2016: Evidence of CAD both the lives in auto genus graft un derwent redo with CABG x 2 with BENITEZ to obtuse marginal, SVG with bypass of the posterior lateral branch. 06/14 Patient seen and examined. Yesterday, patient underwent cardiac cath yesterday with Dr. Lagos finding severe triple-vessel CAD, patent BENITEZ to LAD, occluded SVG to ramus intermedius, patent graft to PLV of the LCx, RCA has a critical disease distally and appears to be unprotected. Subsequently, patient underwent PCI of the distal left main and ramus intermedius. Plan for dual antiplatelet therapy with aspirin and Brilinta for 12 months and staged PCI of the RCA. Discussed results with the patient and he is agreeable to monitor overnight and plan for outpatient PCI. Patient is on heparin drip which we will discontinue today. His heart rate sinus rhythm with a controlled rate. He denies having any chest pain or chest pressure no shortness of breath. Blood pressure 144/66, heart rate 54, pulse ox 100% on 3 L nasal cannula. Repeat blood work reveals sodium 139, potassium 3.2, BUN 17 creatinine 0.77. 06/15/2024 Patient is seen and examined at bedside this a.m. Patient is very apprehensive to go home. He would like to get his intervention done for his RCA during this hospitalization. He requested me to do so because he does not have any transportation to have frequent follow-ups and come to the hospital. He is also appearing to be mildly volume overloaded requiring the need for IV diuretics. He still recovering from his COVID-pneumonia. 06/16/2024 Patient is seen and examined at bedside. BP 113/62, heart rate 52 bpm. Sodium 24, creatinine 0.85 Physical examination: LUNGS: Poor inspiratory effort, mild crackles audible in bilateral lower lung reynoso. HEART: Regular rate and rhythm. No murmur. ABDOMEN: Soft No tenderness. EXTREMITIES: No pedal edema. No calf tenderness. NEUROLOGICAL: Patient is awake, alert and oriented x3. Assessment: New onset A-fib RVR on admission, currently in sinus rhythm. NSTEMI status post PCI to left main to ramus. Residual disease to RCA. Ischemic cardiomyopathy with EF 30 to 35% Multivessel CAD with previous CABG and redo CABG in 2017 Bilateral carotid artery stenosis status post endarterectomy Peripheral artery disease status post femorofemoral bypass left to right Recent COVID infection and pneumonia COPD exacerbation Hypertension Hyperlipidemia Chronic tobacco use and dependence, <1ppd Obesity Plan: Continue the following cardiac medications: Aspirin 81 mg daily, atorvastatin 80 mg daily, Coreg 25 mg twice daily, Farxiga 10 mg daily, Imdur 60 mg daily, Ranexa 500 mg every 12 hours Continue Entresto to 49 mg - 51 mg twice daily Discontinue IV Lasix. Start Bumex 1 mg p.o. daily, Aldactone 12.5 mg daily. Plan for staged PCI of RCA tomorrow with Dr. Blair. Objective - Vital Signs Vital signs: Vital Signs Temp 97.7 F 06/16/24 08:00 Pulse 53 L 06/16/24 14:00 Resp 18 06/16/24 14:00 BP 89/50 06/16/24 11:21 Pulse Ox 93 L 06/16/24 11:21 FiO2 Intake & Output 06/15/24 06/16/24 06/16/24 18:59 06:59 18:59 Intake Total 476 236 Output Total 300 Balance 476 -300 236 Weight 62.5 kg Intake: Oral 476 236 Output: Urine 300 Other: # Voids 2 2 - Labs CBC & Chem 7: 06/13/24 06:40 06/16/24 07:44 Labs: Abnormal Lab Results - Last 24 Hours (Table) 06/16/24 Range/Units 07:44 Carbon Dioxide 39 H (22-30) mmol/L BUN 24 H (9-20) mg/dL
--- NOTE | 2024-06-16 17:59 | P.PN ---
Progress Note - Text Progress Note Date: 06/16/24 I am rounding for Dr. Patrice Ambrose. June 14, 2024: Multiple medical issues. Sitting at edge of bed. Eating supper. Decreased cough. Eating fair. Decreased shortness of breath. Nasal cannula. June 15, 2024: Resting bed. No chest pain. Breathing stable. Patient informed me that he will have further intervention by Dr. Lagos on Monday. Has been in sinus rhythm. June 162024. Up to the bathroom. No chest pain. Breathing remained stable. Dr. Case/cardiology arranging for Dr. Lagos to do the redo intervention tomorrow. Blood pressure running on the lower side. Decrease Coreg to 18 twice daily. Also heart rate down to low 50s. Active Medications Al Hydroxide/Mg Hydroxide (Mag Hydrox/Al Hydrox/Simeth 30 Ml Cup) 30 ml PO Q4HR PRN PRN Reason: Heartburn Alprazolam (Alprazolam 0.25 Mg Tab) 0.25 mg PO Q6HR PRN PRN Reason: Mild Anxiety Last Admin: 06/13/24 20:17 Dose: 0.25 mg Alprazolam (Alprazolam 0.5 Mg Tab) 0.5 mg PO Q6HR PRN PRN Reason: Moderate Anxiety Last Admin: 06/13/24 06:33 Dose: 0.5 mg Aspirin (Aspirin 81 Mg) 81 mg PO DAILY [facility] Last Admin: 06/16/24 08:25 Dose: 81 mg Atorvastatin Calcium (Atorvastatin 80 Mg Tab) 80 mg PO DAILY [facility] Last Admin: 06/16/24 08:25 Dose: 80 mg Atropine Sulfate (Atropine Sulfate 0.1 Mg/Ml 10ml Syringe) 0.5 mg IV ONCE PRN PRN Reason: Symptomatic Bradycardia Benzonatate (Benzonatate 100 Mg Cap) 100 mg PO TID PRN PRN Reason: Cough Last Admin: 06/14/24 13:29 Dose: 100 mg Bumetanide (Bumetanide 1 Mg Tab) 1 mg PO DAILY [facility] Carvedilol (Carvedilol 12.5 Mg Tab) 25 mg PO BID-W/MEALS [facility] Last Admin: 06/16/24 17:50 Dose: 25 mg Dapagliflozin (Dapagliflozin Propanediol 10 Mg Tablet) 10 mg PO DAILY [facility] Last Admin: 02/16/25 08:25 Dose: 10 mg Fluticasone Propionate (Fluticasone Nasal 50mcg/Jackman 16gm Btl) 2 spray EA NOSTRIL DAILY [facility] Last Admin: 06/16/24 08:25 Dose: 2 spray Fluticasone Propionate (Fluticasone 220 Mcg Inhaler) 2 puff INHALATION RT-BID [facility] Last Admin: 06/16/24 08:40 Dose: 2 puff Guaifenesin/Dextromethorphan (Guaifenesin-Dm 600/30mg 1 Each Tab.Er.12h) 2 each PO Q12HR PRN PRN Reason: Cough Last Admin: 06/12/24 22:21 Dose: 2 each Heparin Sodium (Porcine) 10, (000 unit/ Sodium Chloride) 1,001 mls @ 999 mls/hr IRRIGATION ONCE PRN PRN Reason: INTRA-OP Stop: 06/17/24 23:00 Heparin Sodium (Porcine) 2,500 (unit/ Sodium Chloride) 250.5 mls @ 250 mls/hr IRRIGATION ONCE PRN PRN Reason: INTRA-OP Stop: 06/17/24 23:00 Sodium Chloride 1,000 ml/ IV (Solution) 1,000 mls @ 75 mls/hr IV .[id number] [facility] Stop: 06/17/24 07:59 Isosorbide Mononitrate (Isosorbide Mononitrate Er 60 Mg Tab.Er.24h) 60 mg PO DAILY [facility] Last Admin: 06/16/24 08:25 Dose: 60 mg Loratadine (Loratadine 10 Mg Tab) 10 mg PO DAILY [facility] Last Admin: 06/16/24 08:25 Dose: 10 mg Nitroglycerin (Nitroglycerin Sl Tabs 0.4 Mg Tab) 0.4 mg SUBLINGUAL Q5M PRN PRN Reason: Chest Pain Prednisone (Prednisone 20 Mg Tab) 40 mg PO DAILY [facility] Last Admin: 06/16/24 08:25 Dose: 40 mg Ranolazine (Ranolazine 500 Mg Tab.Er.12h) 500 mg PO Q12HR [facility] Last Admin: 06/16/24 08:25 Dose: 500 mg Sacubitril/Valsartan (Sacubitril/Valsartan 49 Mg-51 Mg Tablet) 1 each PO BID [facility] Last Admin: 06/16/24 08:25 Dose: 1 each Salmeterol Xinafoate (Salmeterol 50 Mcg Inhaler) 1 puff INHALATION RT-BID [facility] Last Admin: 06/16/24 08:39 Dose: 1 puff Spironolactone (Spironolactone 25 Mg Tab) 25 mg PO DAILY [facility] Last Admin: 06/16/24 08:25 Dose: 25 mg Ticagrelor (Ticagrelor 90 Mg Tab) 90 mg PO BID [facility]; Protocol Last Admin: 06/16/24 08:25 Dose: 90 mg Tiotropium [place] (Tiotropium 2.5 Mcg Inhaler) 2 puff INHALATION RT-DAILY [facility] Last Admin: 06/16/24 08:39 Dose: 2 puff Zolpidem Tartrate (Zolpidem 5 Mg Tab) 5 mg PO HS PRN PRN Reason: Insomnia On examination: VITAL SIGNS: 54, 18, 105 x 61, 93% on 2 L GENERAL APPEARANCE: BMI 29.4, resting bed, comfortable HEENT: Normal external appearance of nose and ear. Oral cavity normal EYES: Pupils equal. Conjunctiva normal. NECK: JVD not raised. Mass not palpable. RESPIRATORY: Respiratory effort normal, diminished breath sounds CARDIOVASCULAR: First and second sounds normal. No edema. ABDOMEN: Soft. Liver and spleen not palpable. No tenderness. No mass palpable. PSYCHIATRY: Alert and oriented x3. Mood and affect normal. INVESTIGATIONS, reviewed in the clinical context: June 16: Sodium 139 potassium 3.8 creatinine 0.85 June 14: Sodium 139 potassium 3.2 creatinine 0.77 SARS-CoV-2: Detected Assessment plan: -Paroxysmal atrial fibrillation rapid ventricular rate, on presentation. Now in sinus rhythm Coreg 25 mg twice daily. IV heparin -IV heparin monitoring, follow PTT - angioplasty of distal left main June 13. With further disease in RCA Plan for staged RCA intervention i tomorrow with Dr. Lagos -Acute exacerbation of systolic congestive heart failure, EF 30-35%: Clinically improved Bumex 1 mg a day. Aldactone. Entresto. Imdur. -PAD status post femorofemoral bypass left right. Aspirin. Lipitor. -Acute COPD exacerbation, and a cigarette smoker: Stable Flovent Spiriva. Serevent -Acute hypoxic respiratory failure from above, currently on 2 L -Chronic nicotine dependence cigarette smoker Nicotine patch -CAD with a prior history of coronary bypass in 2011, redo in 2017 Aspirin. Lipitor. Coreg. Farxiga -Hyperlipidemia Lipitor -Essential hypertension running a bit on the lower side, also heart rate in low 50s Increase Coreg to 18.75 twice daily -Renal cell carcinoma with history of cryosurgery in 2007
[2024-06-16] MEDS: NICOTINE 21MG/24HR PATCH TRANSDERM SCH (18:47)
[2024-06-17] MEDS: carvediloL 6.25 MG TAB PO SCH (05:08)
[2024-06-17] MEDS: BUMETANIDE 1 MG TAB PO SCH (05:09)
[2024-06-17] MEDS: predniSONE 10 MG TAB PO SCH (05:09)
[2024-06-17] MEDS: SODIUM CHLORIDE 0.9% 1,000 ML in EMPTY BAG 1 BAG IV SCH (05:14)
[2024-06-17] MEDS ORDERED: HEPARIN SODIUM,PORCINE (1 ML) 2,500 UNIT in SODIUM CHLORIDE 0.9% 250 ML IRRIGATION PRN (07:00)
[2024-06-17] MEDS ORDERED: HEPARIN SODIUM,PORCINE 10,000 UNIT in SODIUM CHLORIDE 0.9% 1,000 ML IRRIGATION PRN (07:00)
[2024-06-17] MEDS ORDERED: carvediloL 12.5 MG TAB PO SCH (07:30)
--- NOTE | 2024-06-17 14:29 | P.PN ---
Subjective HISTORY OF PRESENT ILLNESS: This is a 69-year-old male patient with past medical history of NSTEMI, multivessel CAD status post three-vessel CABG in 2011, peripheral artery disease status post femorofemoral bypass in 2011, ischemic cardiomyopathy with EF of 45%, carotid atherosclerosis status post carotid endarterectomy, hypertension, hyperlipidemia, CVA, renal cell carcinoma status post cryosurgery in 2007, COPD, chronic tobacco use and dependence ongoing. Patient also had a second bypass surgery for CAD in 2016. Patient had a recent hospitalization at [facility] for COPD exacerbation, COVID infection and pneumonia and was discharged on 06/09. Patient returned to the emergency center due to difficulty in breathing with progressively worsening shortness of breath. EKG was atrial fibrillation at 141 bpm.. He also had elevated troponins up to 2176, 2780, 2216. Chest x-ray showed mild cardiomegaly airspace opacities in the bilateral lower lung zones indicating pneumonia, small left pleural effusion. CT of the chest with contrast revealed small bilateral pleural effusions and persistent bibasilar opacities. Patient was started on a heparin drip, as well as, a bolus of Cardizem followed by IV Cardizem drip. Patient followed in the past with Dr. Melo and his last appointment was on 06/28/2016. He currently follows at the [facility]. Patient has been transferred to [facility] for further evaluation and cardiac catheterization. Patient has noted to have a congested cough. He remains in atrial fibrillation at 99 bpm. Patient states he continues to have shortness of breath and his breathing does not seem to be any better. He states he is unable to lay flat due to worsening shortness of breath. -Home cardiac medications: Coreg 12.5 mg twice daily, Plavix 75 mg daily, Jardiance 10 mg daily, Imdur 60 mg daily, Nitrostat as needed, Ranexa 500 mg every 12 hours, rosuvastatin 40 mg daily, Entresto 24-26 mg twice daily, spironolactone 25 mg daily. -Echocardiogram performed on 06/07/2024 at [facility] revealed left ventricle appears normal size. Global hypokinesis of the left ventricle. Mild concentric LVH, left ventricular systolic function is decreased to 30 to 35%. No significant valvular dysfunction. -CV surgery 04/19/2012: BENITEZ to LAD, SVG to diagonal, SVG to the RPDA. -Redo CABG 06/06/2016: Evidence of CAD both the lives in auto genus graft underwent redo with CABG x 2 with BENITEZ to obtuse marginal, SVG with bypass of the posterior lateral branch. 06/14 Patient seen and examined. Yesterday, patient underwent cardiac cath yesterday with Dr. Lagos finding severe triple-vessel CAD, patent BENITEZ to LAD, occluded SVG to ramus intermedius, patent graft to PLV of the LCx, RCA has a critical disease distally and appears to be unprotected. Subsequently, patient underwent PCI of the distal left main and ramus intermedius. Plan for dual antiplatelet therapy with aspirin and Brilinta for 12 months and staged PCI of the RCA. Discussed results with the patient and he is agreeable to monitor overnight and plan for outpatient PCI. Patient is on heparin drip which we will discontinue today. His heart rate sinus rhythm with a controlled rate. He denies having any chest pain or chest pressure no shortness of breath. Blood pressure 144/66, heart rate 54, pulse ox 100% on 3 L nasal cannula. Repeat blood work reveals sodium 139, potassium 3.2, BUN 17 creatinine 0.77. 06/15/2024 Patient is seen and examined at bedside this a.m. Patient is very apprehensive to go home. He would like to get his intervention done for his RCA during this hospitalization. He requested me to do so because he does not have any transportation to have frequent follow-ups and come to the hospital. He is also appearing to be mildly volume overloaded requiring the need for IV diuretics. He still recovering from his COVID-pneumonia. 06/16/2024 Patient is seen and examined at bedside. BP 113/62, heart rate 52 bpm. Sodium 24, creatinine 0.85 06/17/2024 Patient examined this morning at the bedside. Patient currently denies chest pain or pressure. He reports mild shortness of breath. Vital signs are stable. Patient was scheduled to undergo cardiac catheterization today with PCI to the RCA. However this has been rescheduled for tomorrow. PHYSICAL EXAM: VITAL SIGNS: Reviewed. GENERAL: Well-developed in no acute distress. NECK: Supple. No JVD or thyromegaly LUNGS: Respirations even and unlabored. Lungs essentially clear to auscultation bilaterally. HEART: Regular rate and rhythm. S1 and S2 heard. EXTREMITIES: Normal range of motion. No clubbing or cyanosis. Peripheral pulses intact. No lower extremity edema ASSESSMENT: New onset A-fib RVR on admission, currently in sinus rhythm. NSTEMI status post PCI to left main to ramus. Residual disease to RCA. Ischemic cardiomyopathy with EF 30 to 35% Multivessel CAD with previous CABG and redo CABG in 2017 Bilateral carotid artery stenosis status post endarterectomy Peripheral artery disease status post femorofemoral bypass left to right Recent COVID infection and pneumonia COPD exacerbation Hypertension Hyperlipidemia Chronic tobacco use and dependence, <1ppd Obesity PLAN: Continue current cardiac medications N.p.o. at midnight Patient to undergo staged PCI of the RCA tomorrow with Dr. Lagos Further recommendations pending patient course Nurse practitioner note has been reviewed by physician. Signing provider agrees with the documented findings, assessment, and plan of care documented by [employer] as a scribe. Objective - Vital Signs Vital signs: Vital Signs Temp 97.6 F 06/17/24 04:04 Pulse 58 L 06/17/24 13:31 Resp 16 06/17/24 13:31 BP 102/59 06/17/24 13:31 Pulse Ox 92 L 06/17/24 13:31 FiO2 Intake & Output 06/16/24 06/17/24 06/17/24 18:59 06:59 18:59 Intake Total 236 540 Balance 236 540 Weight 90.4 kg Intake: Oral 236 540 Other: # Voids 2 3 - Labs CBC & Chem 7: 06/13/24 06:40 06/16/24 07:44
--- NOTE | 2024-06-17 15:48 | P.PN ---
Progress Note - Text Progress Note Date: 06/17/24 I am rounding for Dr. Patrice Amrbose. June 14, 2024: Multiple medical issues. Sitting at edge of bed. Eating supper. Decreased cough. Eating fair. Decreased shortness of breath. Nasal cannula. June 15, 2024: Resting bed. No chest pain. Breathing stable. Patient informed me that he will have further intervention by Dr. Lagos on Monday. Has been in sinus rhythm. June [id number]. Up to the bathroom. No chest pain. Breathing remained stable. Dr. Case/cardiology arranging for Dr. Lagos to do the redo intervention tomorrow. Blood pressure running on the lower side. Decrease Coreg to 18 twice daily. Also heart rate down to low 50s. June 17: Resting in bed. Has been up to the bathroom. Supposed to have a cardiac cath today now rescheduled for tomorrow. No chest pain. Breathing stable. Very slight cough. Because of low blood pressure decrease heart rate cardiology further decrease the Coreg. 6.25 twice daily. Active Medications Al Hydroxide/Mg Hydroxide (Mag Hydrox/Al Hydrox/Simeth 30 Ml Cup) 30 ml PO Q4HR PRN PRN Reason: Heartburn Alprazolam (Alprazolam 0.25 Mg Tab) 0.25 mg PO Q6HR PRN PRN Reason: Mild Anxiety Last Admin: 06/17/24 05:08 Dose: 0.25 mg Alprazolam (Alprazolam 0.5 Mg Tab) 0.5 mg PO Q6HR PRN PRN Reason: Moderate Anxiety Last Admin: 06/13/24 06:33 Dose: 0.5 mg Aspirin (Aspirin 81 Mg) 81 mg PO DAILY [facility] Last Admin: 06/17/24 05:09 Dose: 81 mg Atorvastatin Calcium (Atorvastatin 80 Mg Tab) 80 mg PO DAILY [facility] Last Admin: 06/17/24 05:08 Dose: 80 mg Atropine Sulfate (Atropine Sulfate 0.1 Mg/Ml 10ml Syringe) 0.5 mg IV ONCE PRN PRN Reason: Symptomatic Bradycardia Benzonatate (Benzonatate 100 Mg Cap) 100 mg PO TID PRN PRN Reason: Cough Last Admin: 06/14/24 13:29 Dose: 100 mg Bumetanide (Bumetanide 1 Mg Tab) 1 mg PO DAILY [facility] Last Admin: 06/17/24 05:09 Dose: 1 mg Carvedilol (Carvedilol 6.25 Mg Tab) 6.25 mg PO BID-W/MEALS [facility] Last Admin: 06/17/24 05:08 Dose: 6.25 mg Dapagliflozin (Dapagliflozin Propanediol 10 Mg Tablet) 10 mg PO DAILY [facility] Last Admin: 06/17/24 05:08 Dose: 10 mg Fluticasone Propionate (Fluticasone Nasal 50mcg/Outlook 16gm Btl) 2 spray EA NOSTRIL DAILY [facility] Last Admin: 06/17/24 05:11 Dose: 2 spray Fluticasone Propionate (Fluticasone 220 Mcg Inhaler) 2 puff INHALATION RT-BID [facility] Last Admin: 06/17/24 09:01 Dose: 2 puff Guaifenesin/Dextromethorphan (Guaifenesin-Dm 600/30mg 1 Each Tab.Er.12h) 2 each PO Q12HR PRN PRN Reason: Cough Last Admin: 06/12/24 22:21 Dose: 2 each Heparin Sodium (Porcine) 10, (000 unit/ Sodium Chloride) 1,001 mls @ 999 mls/hr IRRIGATION ONCE PRN PRN Reason: INTRA-OP Stop: 06/17/24 23:00 Heparin Sodium (Porcine) 2,500 (unit/ Sodium Chloride) 250.5 mls @ 250 mls/hr IRRIGATION ONCE PRN PRN Reason: INTRA-OP Stop: 06/17/24 23:00 Isosorbide Mononitrate (Isosorbide Mononitrate Er 60 Mg Tab.Er.24h) 60 mg PO DAILY [facility] Last Admin: 06/17/24 05:08 Dose: 60 mg Loratadine (Loratadine 10 Mg Tab) 10 mg PO DAILY [facility] Last Admin: 06/17/24 05:09 Dose: 10 mg Nicotine (Nicotine 21mg/24hr Patch) 1 patch TRANSDERM DAILY [facility] Last Admin: 06/17/24 05:13 Dose: Not Given Nitroglycerin (Nitroglycerin Sl Tabs 0.4 Mg Tab) 0.4 mg SUBLINGUAL Q5M PRN PRN Reason: Chest Pain Prednisone (Prednisone 10 Mg Tab) 30 mg PO DAILY [facility] Last Admin: 06/17/24 05:09 Dose: 30 mg Ranolazine (Ranolazine 500 Mg Tab.Er.12h) 500 mg PO Q12HR [facility] Last Admin: 06/17/24 05:08 Dose: 500 mg Sacubitril/Valsartan (Sacubitril/Valsartan 49 Mg-51 Mg Tablet) 1 each PO BID [facility] Last Admin: 06/17/24 06:22 Dose: 1 each Salmeterol Xinafoate (Salmeterol 50 Mcg Inhaler) 1 puff INHALATION RT-BID [facility] Last Admin: 06/17/24 09:00 Dose: 1 puff Spironolactone (Spironolactone 25 Mg Tab) 25 mg PO DAILY [facility] Last Admin: 06/17/24 05:08 Dose: 25 mg Ticagrelor (Ticagrelor 90 Mg Tab) 90 mg PO BID [facility]; Protocol Last Admin: 06/17/24 05:08 Dose: 90 mg Tiotropium [place] (Tiotropium 2.5 Mcg Inhaler) 2 puff INHALATION RT-DAILY [facility] Last Admin: 06/17/24 09:01 Dose: 2 puff Zolpidem Tartrate (Zolpidem 5 Mg Tab) 5 mg PO HS PRN PRN Reason: Insomnia On examination: VITAL SIGNS: 97.6, 58, 16, 102 x 59, 92% room air GENERAL APPEARANCE: BMI 29.4, resting bed, comfortable HEENT: Normal external appearance of nose and ear. Oral cavity normal EYES: Pupils equal. Conjunctiva normal. NECK: JVD not raised. Mass not palpable. RESPIRATORY: Respiratory effort normal, diminished breath sounds CARDIOVASCULAR: First and second sounds normal. No edema. ABDOMEN: Soft. Liver and spleen not palpable. No tenderness. No mass palpable. PSYCHIATRY: Alert and oriented x3. Mood and affect normal. INVESTIGATIONS, reviewed in the clinical context: June 16: Sodium 139 potassium 3.8 creatinine 0.85 June 14: Sodium 139 potassium 3.2 creatinine 0.77 SARS-CoV-2: Detected Assessment plan: -Paroxysmal atrial fibrillation rapid ventricular rate, on presentation. Now in sinus rhythm Coreg 6.25 mg twice daily. IV heparin -IV heparin monitoring, follow PTT - angioplasty of distal left main June 13. With further disease in RCA Plan for staged RCA intervention rescheduled for tomorrow with Dr. Lagos -Acute exacerbation of systolic congestive heart failure, EF 30-35%: Clinically improved Bumex 1 mg a day. Aldactone. Entresto. Imdur. -COVID-19, stable On IV heparin -PAD status post femorofemoral bypass left right. Aspirin. Lipitor. -Acute COPD exacerbation, and a cigarette smoker: Stable Flovent Spiriva. Serevent -Acute hypoxic respiratory failure from above, improved -Chronic nicotine dependence cigarette smoker Nicotine patch -CAD with a prior history of coronary bypass in 2011, redo in 2017 Aspirin. Lipitor. Coreg. Farxiga -Hyperlipidemia Lipitor -Essential hypertension running a bit on the lower side, also heart rate in low 50s Decrease Coreg -Renal cell carcinoma with history of cryosurgery in 2007
--- NOTE | 2024-06-17 20:32 | P.PN ---
Subjective Progress Note Date: 06/17/24 Patient is a 68-year-old white male with past medical history significant for COPD, chronic ongoing tobacco dependence, coronary artery disease with previous CABG and redo, left hemidiaphragm paralysis status/post plication, hypertension, hyperlipidemia, CVA/TIA, carotid artery stenosis status/post bilateral carotid endarterectomy, among other things. He follows at the [facility] for his primary care needs. Patient is known to have COPD, which is usually fairly well-controlled. He is unsure of his inhalers. Continues to smoke cigarettes approximately 6/day. Of note, patient recently hospitalized at [facility], reportedly for COVID-19 and pneumonia. Discharged from the outside facility on 06/09/2024, then returned yesterday with similar complaints of shortness of breath. While in the ER, noted to be in atrial fibrillation with rapid ventricular rate. His troponins were elevated. The patient was started on a combination of Cardizem at 5 mg/h, as well as, systemic IV heparin. Patient then transferred to [facility]. He is currently being evaluated on the cardiac stepdown unit. He is sitting at the edge of the bed. On 4 L/min nasal cannula. Not in any respiratory distress. His primary complaint is shortness of breath. He has a nonproductive cough. Denies any fever/chills, sputum production, hemoptysis. Faint expiratory wheezes heard bilaterally. Denies any chest pain. Does endorse some lightheadedness and heart palpitations prior to going to the emergency department at [facility]. Denies any syncopal events, orthopnea, PND, lower extremity swelling. Heart rate currently better controlled ranging from 80 to 100 bpm. Blood pressure is normotensive. Continues on Cardizem at 5 mg/h. Also, systemically heparinized per protocol. Chest x-ray done at our facility showing cardiomegaly, mild pulmonary vascular congestion, and possible retrocardiac infiltrate or atelectasis. Prior sternotomy wires noted. Patient states that he is going for heart catheterization Progress note dated June 13, 2024. 69-year-old male seen today in room 376. The patient is apparently scheduled to have a cardiac catheterization today. He continues on IV heparin, and saline at 20 cc an hour. He is got nasal O2, at 3 L. The patient is a DO NOT RESUSCITATE patient. The patient was transferred over from [facility]. Current laboratory data includes a white count 4.3, hemoglobin 11.9, hematocrit 37.2, and a platelet count of 402,000. PTT is 54.3. Sodium 140, potassium 3.7, chlorides 99, CO2 38, BUN 17, creatinine 0.82. Glucose was 110. Calcium is 8.5. The patient did test positive for coronavirus. Chest x-ray from yesterday shows a pattern consistent with mild CHF. Progress note dated June 14, 2024. 69-year-old male seen today in room 376. The patient is resting comfortably in bed. He is on 3 L nasal cannula. He is not receiving any IV fluids. The patient did have a PCI, of his distal left main coronary artery, yesterday. The patient states that he might be discharged, and will be brought back, for another catheterization. He has a full code currently although previously he w as a DO NOT RESUSCITATE patient. Current laboratory data includes a sodium 139, potassium 3.2, chlorides 99, CO2 37, BUN 17, creatinine 0.77. The patient did test positive for coronavirus. The patient is seen today June 15, 2024 in follow-up on the selective care unit. He is currently resting comfortably in bed. Awake and alert in no acute distress. Denies any worsening shortness of breath, cough or congestion. Denies any chest pain. He is maintaining O2 saturations in the 90s on 3 L/min per nasal cannula. He remains on IV diuretics. Continued on Spiriva and Serevent and Flovent. Continued on a prednisone taper. Continued on Tessalon Perles. Earlene on Brilinta and aspirin. Currently in a -170 mL balance. Progress note dated June 16, 2024. The patient is seen today in room 376. The patient continues on 2 L of oxygen. No IV fluids. The patient tells me he is scheduled for cardiac catheterization tomorrow, June 17. He denies any shortness of breath, cough, wheezing, chest tightness, or phlegm production. He also denies any chest pain or pressure, palpitations, fluttering, etc. Current laboratory data includes a sodium 139, potassium 3.8, chlorides 99, CO2 39, BUN 24, creatinine 0.85. Glucose is 95. Calcium is 8.8. On today's evaluation of 06/17/2024, the patient is being seen for a follow-up. The patient is calm and comfortable. The patient was supposed to undergo a cardiac catheterization today. This Postponed till tomorrow. Meanwhile, is free of any chest pain. The patient remains on IV heparin. Rest of the medications are essentially unchanged. Remains on Coreg 6.25 mg p.o. twice a day. The patient is on Bumex 1 mg p.o. daily and Aldactone 25 mg p.o. daily. The patient is also on Entresto 49/51 1 tablet twice daily. The patient is post COVID-19 infection. The patient is currently on prednisone 30 mg p.o. daily. Oxygenation is stable and the patient is currently on room air oxygen with a pulse ox of 93%. Most recent chest x-ray from 06/12/2024 showed CHF with pulm vascular congestion and small to moderate left and small right-sided pleural effusion. The patient had a procalcitonin level of 0.05 at the time of admiss ion. BUN is 24 with a creatinine of 0.8 and sodium levels at 139. His scheduled to undergo cardiac catheterization with PCI to RCA. He did undergo cardiac catheterization during this current admissionwith Dr. Lagos finding severe triple-vessel CAD, patent BENITEZ to LAD, occluded SVG to ramus intermedius, patent graft to PLV of the LCx, RCA has a critical disease distally and appears to be unprotected. Subsequently, patient underwent PCI of the distal left main and ramus intermedius. He remains on a combination of Brilinta and aspirin. Objective - Vital Signs Vital signs: Vital Signs Temp 97.6 F 06/17/24 04:04 Pulse 58 L 06/17/24 13:31 Resp 16 06/17/24 13:31 BP 102/59 06/17/24 13:31 Pulse Ox 92 L 06/17/24 13:31 FiO2 Intake & Output 06/16/24 06/17/24 06/17/24 18:59 06:59 18:59 Intake Total 236 540 Balance 236 540 Weight 90.4 kg Intake: Oral 236 540 Other: # Voids 2 3 - Exam GENERAL EXAM: Alert, active, 69-year-old male, on room air oxygen, comfortable in no apparent distress. HEAD: Normocephalic. EYES: Normal reaction of pupils, equal size. NOSE: Clear with pink turbinates. THROAT: No erythema or exudates. NECK: No masses, no JVD. CHEST: No chest wall deformity. LUNGS: Equal air entry with no crackles, wheeze, rhonchi or dullness. CVS: S1 and S2 normal with no audible murmur, regular rhythm. ABDOMEN: No hepatosplenomegaly, normal bowel sounds, no guarding or rigidity. SPINE: No scoliosis or deformity SKIN: No rashes CENTRAL NERVOUS SYSTEM: No focal deficits, tone is normal in all 4 extremities. EXTREMITIES: There is no peripheral edema. No clubbing, no cyanosis. Peripheral pulses are intact. - Labs CBC & Chem 7: 06/13/24 06:40 06/16/24 07:44 Assessment and Plan Plan: Acute hypoxic respiratory failure, improved and the patient is currently on room air oxygen. New onset A-fib RVR on admission, currently in sinus rhythm. Acute NSTEMI status post PCI to left main to ramus. Residual disease to RCA. The patient is scheduled to undergo PCI and stenting to the RCA in a.m. Ischemic cardiomyopathy with EF 30 to 35% Multivessel CAD with previous CABG and redo CABG in 2017 Bilateral carotid artery stenosis status post endarterectomy, bilateral Peripheral artery disease status post femorofemoral bypass left to right Recent COVID infection and pneumonia COPD exacerbation, stable and improving the patient is currently on a prednisone burst taper Hypertension Hyperlipidemia Chronic tobacco use and dependence, <1ppd Obesity Plan Plan: Patient currently on room air oxygen Continue aspirin and Brilinta Continue Coreg Cardiac catheterization and PCI/stenting to the RCA in a.m. Keep the patient on IV heparin Continue Bumex 1 mg p.o. daily Continue Aldactone Continue Entresto 49/51 1 tablet a day Continue Lipitor 80 mg p.o. daily Farxiga 10 mg p.o. daily Ranexa 500 mg p.o. twice a day Continue Spiriva Prednisone burst taper currently on 30 mg p.o. daily Will continue to follow
[2024-06-18] MEDS: IV FLUID CONTINUATION 1,000 ML IV ONE (08:50)
[2024-06-18] MEDS: HEPARIN SODIUM,PORCINE 10,000 UNIT in SODIUM CHLORIDE 0.9% 1,000 ML IRRIGATION ONE (08:51)
[2024-06-18] MEDS: HEPARIN SODIUM,PORCINE (1 ML) 2,500 UNIT in SODIUM CHLORIDE 0.9% 250 ML IRRIGATION ONE (08:52)
[2024-06-18] MEDS: MIDAZOLAM 2 MG/2 ML VIAL IVP ONE (09:11)
[2024-06-18] MEDS: fentaNYL (PF) 50 MCG/ML 2 ML AMP IVP ONE (09:11)
[2024-06-18] MEDS: LIDOCAINE 1% INJ 10MG/ML (20 ML MDV) SQ ONE (09:13)
[2024-06-18] MEDS: HEPARIN SODIUM 1,000 UN/ML (10ML VL) IV ONE (09:30)
[2024-06-18] MEDS: SODIUM CHLORIDE 0.9% 1,000 ML IV ONE (10:15)
[2024-06-18] MEDS: MORPHINE SULFATE 4 MG/ML SYRINGE IVP ONE ×2 (11:18→11:39)
[2024-06-18] MEDS: IOPAMIDOL-370 100ML BTL INJ ONE (11:59)
[2024-06-18] MEDS ORDERED: RX INFO: IV CONTRAST WAS GIVEN 1 EACH MISC MISCELLANE PRN (12:06)
[2024-06-18] MEDS ORDERED: NITROGLYCERIN SL TABS 0.4 MG TAB SUBLINGUAL PRN (12:06)
[2024-06-18] MEDS ORDERED: MAG HYDROX/AL HYDROX/SIMETH 30 ML CUP PO PRN (12:06)
[2024-06-18] MEDS ORDERED: ZOLPIDEM 5 MG TAB PO PRN (12:06)
[2024-06-18] MEDS ORDERED: ATROPINE SULFATE 0.1 MG/ML 10ML SYRINGE IV PRN (12:06)
--- NOTE | 2024-06-18 12:26 | P.PCN ---
Date of Procedure: 06/18/24 Operative Findings: PERCUTANEOUS CORONARY INTERVENTION Performing physician Harsh Lagos M.D. Procedure Performed: 1. Successful stenting of the distal and middle and proximal extremely calcified and tortuous RCA with an excellent angiographic results and reduction of stenosis from 9 9% to 0% 2. Adjunctive use of IVUS and orbital atherectomy 3. Ultrasound-guided access of the left common femoral artery and selective left common femoral artery angiogram Indication: Critical disease involving the RCA in this 69-year-old gentleman who continues to be symptomatic Approach: Left common femoral artery Complications: None Level of Sedation: Moderate with a sedation length of 166 minutes Procedure Discussion: After obtaining informed consent the patient was brought to the cardiac Plastic Tubing Insulation Supervisor. The left common femoral artery was cannulated using micropuncture technique under ultrasound guidance a micropuncture wire passed easily then I placed a 6 [place] 23 cm sheath because the left common iliac artery is known to be extremely tortuous from previous heart catheterization. Subsequently antico agulation was initiated using heparin with continuous ACT monitoring throughout the procedure. After that I did engage the RCA using KR4 guiding catheter. After that I did wire the RCA using a whisper wire with adjunctive use of a Corsair catheter. The RCA was extremely calcified. After that and for better anchoring and better support I decided to wire the RCA using a run-through wire but that was unsuccessful because the wire did not cross the lesion in the distal right coronary artery. From the get go there was a critical lesion involving the proximal to mid RCA. I did balloon angioplasty on that lesion using initially 2.5 mm and subsequently 3 mm balloon. After that I deployed a 3.25 x 18 mm stent where the stent was positioned under fluoroscopy guidance and deployed under fluoroscopy guidance and after that I was able to engage the RCA better by advancing the guide inside the stented segment. Attempting doing balloon angioplasty of the RCA in the mid and distal portion using 1.0 mm was unsuccessful. Before that I attempted 1.5 and 2.0 and that was unsuccessful and at that point I decided to do atherectomy of the RCA in the mid to distal segment. I did exchange my whisper wire into a Viper wire using the Corsair catheter. After that I did atherectomy of the mid and distal right coronary artery using multiple runs in the low speed only. After that I was able to do balloon angioplasty using 2 mm balloon and 2.5 mm balloon and then a 3 mm balloon. After that in the very distal RCA where there was a critical lesion involving the very distal RCA I deployed a 3.0 x 38 mm Xience REBECCA where the stent was positioned under fluoroscopy guidance and deployed under fluoroscopy guidance. After that for the mid right coronary artery I deployed 3.5 x 48 mm stent. Unfortunately there was an area/Between that stent and the stent in the very proximal RCA with a lesion involving that segment and at that point I decided to cover that segment using 3.5 x 18 mm stent. Postdilatation a very proximal RCA was performed using 4 mm balloon. Final angiogram showed good angiographic results and BRITTANY-3 flow in the RCA. The procedure was completed with no complication. By the end I did selective left common femoral artery angiogram and then I exchanged my 23 cm sheath into 11 cm sheath using 035 wire. The procedure was completed with no complication Postprocedure Management: 1. Dual antiplatelet therapy using aspirin and Brilinta 2. Aggressive cholesterol control 3. Hold the blood pressure medications and any AV yordan billy agents giving the marginally low blood pressure and marginally low heart rate requiring the patient to be started on dopamine
[2024-06-18] MEDS: DOPamine DRIP 800 MG in DEXTROSE/WATER 1 250ML.BAG IV ONE (12:30)
[2024-06-18] MEDS: ONDANSETRON 4 MG/2 ML VIAL IVP ONE (12:35)
[2024-06-18 15:04] LABS: Glucose,Whole Blood 147 mg/dL (70-110)
[2024-06-18] MEDS: SODIUM CHLORIDE 0.9% 1,000 ML in EMPTY BAG 1 BAG IV SCH (15:10)
[2024-06-18] MEDS: DOPamine DRIP 800 MG in DEXTROSE/WATER 1 250ML.BAG IV SCH ×2 (15:15→19:11)
--- NOTE | 2024-06-18 18:03 | P.PN ---
Subjective Progress Note Date: 06/18/24 Patient is a 68-year-old white male with past medical history significant for COPD, chronic ongoing tobacco dependence, coronary artery disease with previous CABG and redo, left hemidiaphragm paralysis status/post plication, hypertension, hyperlipidemia, CVA/TIA, carotid artery stenosis status/post bilateral carotid endarterectomy, among other things. He follows at the [facility] for his primary care needs. Patient is known to have COPD, which is usually fairly well-controlled. He is unsure of his inhalers. Continues to smoke cigarettes approximately 6/day. Of note, patient recently hospitalized at [facility], reportedly for COVID-19 and pneumonia. Discharged from the outside facility on 06/09/2024, then returned yesterday with similar complaints of shortness of breath. While in the ER, noted to be in atrial fibrillation with rapid ventricular rate. His troponins were elevated. The patient was started on a combination of Cardizem at 5 mg/h, as well as, systemic IV heparin. Patient then transferred to [facility]. He is currently being evaluated on the cardiac stepdown unit. He is sitting at the edge of the bed. On 4 L/min nasal cannula. Not in any respiratory distress. His primary complaint is shortness of breath. He has a nonproductive cough. Denies any fever/chills, sputum production, hemoptysis. Faint expiratory wheezes heard bilaterally. Denies any chest pain. Does endorse some lightheadedness and heart palpitations prior to going to the emergency department at [facility]. Denies any syncopal events, orthopnea, PND, lower extremity swelling. Heart rate currently better controlled ranging from 80 to 100 bpm. Blood pressure is normotensive. Continues on Cardizem at 5 mg/h. Also, systemically heparinized per protocol. Chest x-ray done at our facility showing cardiomegaly, mild pulmonary vascular congestion, and possible retrocardiac infiltrate or atelectasis. Prior sternotomy wires noted. Patient states that he is going for heart catheterization Progress note dated June 13, 2024. 69-year-old male seen today in room 376. The patient is apparently scheduled to have a cardiac catheterization today. He continues on IV heparin, and saline at 20 cc an hour. He is got nasal O2, at 3 L. The patient is a DO NOT RESUSCITATE patient. The patient was transferred over from [facility]. Current laboratory data includes a white count 4.3, hemoglobin 11.9, hematocrit 37.2, and a platelet count of 402,000. PTT is 54.3. Sodium 140, potassium 3.7, chlorides 99, CO2 38, BUN 17, creatinine 0.82. Glucose was 110. Calcium is 8.5. The patient did test positive for coronavirus. Chest x-ray from yesterday shows a pattern consistent with mild CHF. Progress note dated June 14, 2024. 69-year-old male seen today in room 376. The patient is resting comfortably in bed. He is on 3 L nasal cannula. He is not receiving any IV fluids. The patient did have a PCI, of his distal left main coronary artery, yesterday. The patient states that he might be discharged, and will be brought back, for another catheterization. He has a full code currently although previously he w as a DO NOT RESUSCITATE patient. Current laboratory data includes a sodium 139, potassium 3.2, chlorides 99, CO2 37, BUN 17, creatinine 0.77. The patient did test positive for coronavirus. The patient is seen today June 15, 2024 in follow-up on the selective care unit. He is currently resting comfortably in bed. Awake and alert in no acute distress. Denies any worsening shortness of breath, cough or congestion. Denies any chest pain. He is maintaining O2 saturations in the 90s on 3 L/min per nasal cannula. He remains on IV diuretics. Continued on Spiriva and Serevent and Flovent. Continued on a prednisone taper. Continued on Tessalon Perles. Earlene on Brilinta and aspirin. Currently in a -170 mL balance. Progress note dated June 16, 2024. The patient is seen today in room 376. The patient continues on 2 L of oxygen. No IV fluids. The patient tells me he is scheduled for cardiac catheterization tomorrow, June 17. He denies any shortness of breath, cough, wheezing, chest tightness, or phlegm production. He also denies any chest pain or pressure, palpitations, fluttering, etc. Current laboratory data includes a sodium 139, potassium 3.8, chlorides 99, CO2 39, BUN 24, creatinine 0.85. Glucose is 95. Calcium is 8.8. On today's evaluation of 06/17/2024, the patient is being seen for a follow-up. The patient is calm and comfortable. The patient was supposed to undergo a cardiac catheterization today. This Postponed till tomorrow. Meanwhile, is free of any chest pain. The patient remains on IV heparin. Rest of the medications are essentially unchanged. Remains on Coreg 6.25 mg p.o. twice a day. The patient is on Bumex 1 mg p.o. daily and Aldactone 25 mg p.o. daily. The patient is also on Entresto 49/51 1 tablet twice daily. The patient is post COVID-19 infection. The patient is currently on prednisone 30 mg p.o. daily. Oxygenation is stable and the patient is currently on room air oxygen with a pulse ox of 93%. Most recent chest x-ray from 06/12/2024 showed CHF with pulm vascular congestion and small to moderate left and small right-sided pleural effusion. The patient had a procalcitonin level of 0.05 at the time of admiss ion. BUN is 24 with a creatinine of 0.8 and sodium levels at 139. His scheduled to undergo cardiac catheterization with PCI to RCA. He did undergo cardiac catheterization during this current admissionwith Dr. Lagos finding severe triple-vessel CAD, patent BENITEZ to LAD, occluded SVG to ramus intermedius, patent graft to PLV of the LCx, RCA has a critical disease distally and appears to be unprotected. Subsequently, patient underwent PCI of the distal left main and ramus intermedius. He remains on a combination of Brilinta and aspirin. 06/18/2024, the patient is being seen in the intensive care unit. The patient was taken to the [facility] and the patient underwent successful stenting of the distal in the mid and proximal RCA that was extensively calcified and tortuous. There was reduction of the stenosis from 99% to 0%. The access was done through the left common femoral artery. Following the procedure, the patient encountered bradycardia. He also encountered hypotension. Blood pressure medication have been discontinued in addition to any AV yordan blockers. The patient was started on dopamine and he was given a TVP with a backup rate of 60. The patient is currently hemodynamically stable. Free of any chest pain. He remains on aspirin. He remains on Brilinta. Beta-blockers have been discontinued. He continues to complete his prednisone burst taper that was given to him for the COVID-19 infection. Rest of medications remain unchanged. He is currently off Coreg. He is also placed on oxygen and currently on 4 L of O2 nasal cannula with pulse ox of 99%. Objective - Vital Signs Vital signs: Vital Signs Temp 97.4 F L 06/18/24 16:15 Pulse 61 06/18/24 17:00 Resp 13 06/18/24 17:00 BP 115/87 06/18/24 17:00 Pulse Ox 95 06/18/24 17:00 FiO2 Intake & Output 06/17/24 06/18/24 06/18/24 18:59 06:59 18:59 Intake Total 497 178 1510 Output Total 1600 Balance 611 100 -140 Weight 90.9 kg Intake: IV 375 1385 Sodium Chloride 0.9% 1, 375 75 000 ml In Empty Bag 1 bag @ 75 mls/hr IV .[id number] [facility] Rx#:[id number] TVP 10 Intake, IV Titration 75 Amount Sodium Chloride 0.9% 1, 75 000 ml In Empty Bag 1 bag @ 75 mls/hr IV .[id number] [facility] Rx#:[id number] Oral 236 100 Output: Urine 1600 Other: Voiding Method Urinal - Exam GENERAL EXAM: Alert, active, 69-year-old male comfortable in no apparent distress. The patient is currently on 4 L of O2 nasal cannula. HEAD: Normocephalic. EYES: Normal reaction of pupils, equal size. NOSE: Clear with pink turbinates. THROAT: No erythema or exudates. NECK: No masses, no JVD. CHEST: No chest wall deformity. LUNGS: Equal air entry with no crackles, wheeze, rhonchi or dullness. CVS: S1 and S2 normal with no audible murmur, regular rhythm. ABDOMEN: No hepatosplenomegaly, normal bowel sounds, no guarding or rigidity. TTP catheter through the right groin. SPINE: No scoliosis or deformity SKIN: No rashes CENTRAL NERVOUS SYSTEM: No focal deficits, tone is normal in all 4 extremities. EXTREMITIES: There is no peripheral edema. No clubbing, no cyanosis. Peripheral pulses are intact. - Labs CBC & Chem 7: 06/13/24 06:40 06/16/24 07:44 Labs: Abnormal Lab Results - Last 24 Hours (Table) 06/18/24 Range/Units 15:03 POC Glucose (mg/dL) 147 H (70-110) mg/dL Assessment and Plan Plan: Acute hypoxic respiratory failure, currently on 4 L of oxygen by nasal cannula. Acute NSTEMI status post PCI to left main to ramus. Residual disease to RCA. The patient underwent further coronary intervention, PCI and multiple stenting of the RCA. Procedure was complicated by hypotension and bradycardia arrhythmias and the patient currently is on dopamine and the TVP has been inserted with a backup rate of 60. Blood pressure is adequate for now. Cli nically asymptomatic. Free of any chest pain. The patient is currently off beta-blockers. A-fib RVR on admission, currently in sinus rhythm. Ischemic cardiomyopathy with EF 30 to 35% Multivessel CAD with previous CABG and redo CABG in 2017 Bilateral carotid artery stenosis status post endarterectomy, bilateral Peripheral artery disease status post femorofemoral bypass left to right COVID infection and pneumonia, completing a prednisone burst taper COPD exacerbation, stable and improving the patient is currently on a prednisone burst taper Hypertension Hyperlipidemia Chronic tobacco use and dependence, <1ppd Obesity Plan Plan: Patient currently on 4 L of O2 nasal cannula Continue aspirin and Brilinta Discontinue Coreg and Entresto Cardiac catheterization and PCI/stenting to the RCA was done completed Continue dopamine at 5 mcg/kg/min TVP with a backup rate of 60 Continue Bumex 1 mg p.o. daily Continue Aldactone Continue Lipitor 80 mg p.o. daily Farxiga 10 mg p.o. daily Ranexa 500 mg p.o. twice a day Continue Spiriva Prednisone burst taper currently on 30 mg p.o. daily Will continue to follow and the patient was monitored in the intensive care unit for the next 24 to 48 hours. Time with Patient: Greater than 30
--- NOTE | 2024-06-18 18:40 | P.PN ---
Progress Note - Text Progress Note Date: 06/18/24 I am rounding for Dr. Patrice Ambrose. June 14, 2024: Multiple medical issues. Sitting at edge of bed. Eating supper. Decreased cough. Eating fair. Decreased shortness of breath. Nasal cannula. June 15, 2024: Resting bed. No chest pain. Breathing stable. Patient informed me that he will have further intervention by Dr. Lagos on Monday. Has been in sinus rhythm. June 162024. Up to the bathroom. No chest pain. Breathing remained stable. Dr. Case/cardiology arranging for Dr. Lagos to do the redo intervention tomorrow. Blood pressure running on the lower side. Decrease Coreg to 18 twice daily. Also heart rate down to low 50s. June 17: Resting in bed. Has been up to the bathroom. Supposed to have a cardiac cath today now rescheduled for tomorrow. No chest pain. Breathing stable. Very slight cough. Because of low blood pressure decrease heart rate cardiology further decrease the Coreg. 6.25 twice daily. June 18: Patient taken to the [facility] today by Dr. Lagos. It was a rather lengthy process. Patient at least had 3 stents placed in RCA. Including angioplasty. More details in Dr. Lagos's notes. Subsequently patient became bradycardic and hypotensive. Postprocedure admitted to the ICU. On dopamine. 5 mcg an hour. On nasal cannula 4 L. Postprocedure no chest pain Active Medications Al Hydroxide/Mg Hydroxide (Mag Hydrox/Al Hydrox/Simeth 30 Ml Cup) 30 ml PO Q4HR PRN PRN Reason: Heartburn Alprazolam (Alprazolam 0.25 Mg Tab) 0.25 mg PO Q6HR PRN PRN Reason: Mild Anxiety Last Admin: 06/18/24 05:36 Dose: 0.25 mg Alprazolam (Alprazolam 0.5 Mg Tab) 0.5 mg PO Q6HR PRN PRN Reason: Moderate Anxiety Last Admin: 06/13/24 06:33 Dose: 0.5 mg Aspirin (Aspirin 81 Mg) 81 mg PO DAILY [facility] Last Admin: 06/18/24 05:31 Dose: 81 mg Atorvastatin Calcium (Atorvastatin 80 Mg Tab) 80 mg PO DAILY [facility] Last Admin: 06/18/24 05:32 Dose: 80 mg Atropine Sulfate (Atropine Sulfate 0.1 Mg/Ml 10ml Syringe) 0.5 mg IV ONCE PRN PRN Reason: Symptomatic Bradycardia Benzonatate (Benzonatate 100 Mg Cap) 100 mg PO TID PRN PRN Reason: Cough Last Admin: 06/14/24 13:29 Dose: 100 mg Bumetanide (Bumetanide 1 Mg Tab) 1 mg PO DAILY [facility] Last Admin: 06/18/24 15:04 Dose: Not Given Dapagliflozin (Dapagliflozin Propanediol 10 Mg Tablet) 10 mg PO DAILY [facility] Last Admin: 06/18/24 05:32 Dose: 10 mg Fluticasone Propionate (Fluticasone Nasal 50mcg/[place] 16gm Btl) 2 spray EA NOSTRIL DAILY [facility] Last Admin: 06/18/24 06:01 Dose: 2 spray Fluticasone Propionate (Fluticasone 220 Mcg Inhaler) 2 puff INHALATION RT-BID [facility] Last Admin: 06/18/24 12:43 Dose: Not Given Guaifenesin/Dextromethorphan (Guaifenesin-Dm 600/30mg 1 Each Tab.Er.12h) 2 each PO Q12HR PRN PRN Reason: Cough Last Admin: 06/18/24 01:02 Dose: 2 each Dopamine HCl/Dextrose 800 mg/ (IV Solution) 250 mls @ 8.522 mls/hr IV .Q24H [facility]; Protocol Last Admin: 06/18/24 15:15 Dose: 5 mcg/kg/min, 8.522 mls/hr Loratadine (Loratadine 10 Mg Tab) 10 mg PO DAILY [facility] Last Admin: 06/18/24 05:32 Dose: 10 mg Miscellaneous Information (Rx Info: Iv Contrast Was Given 1 Each Misc) 1 each MISCELLANE DAILY PRN PRN Reason: Per Protocol Stop: 06/20/24 12:07 Nicotine (Nicotine 21mg/24hr Patch) 1 patch TRANSDERM DAILY [facility] Last Admin: 06/18/24 05:33 Dose: Not Given Nitroglycerin (Nitroglycerin Sl Tabs 0.4 Mg Tab) 0.4 mg SUBLINGUAL Q5M PRN PRN Reason: Chest Pain Prednisone (Prednisone 10 Mg Tab) 30 mg PO DAILY [facility] Last Admin: 06/18/24 05:32 Dose: 30 mg Ranolazine (Ranolazine 500 Mg Tab.Er.12h) 500 mg PO Q12HR [facility] Last Admin: 06/18/24 05:32 Dose: 500 mg Salmeterol Xinafoate (Salmeterol 50 Mcg Inhaler) 1 puff INHALATION RT-BID [facility] Last Admin: 06/18/24 12:43 Dose: Not Given Ticagrelor (Ticagrelor 90 Mg Tab) 90 mg PO BID [facility]; Protocol Last Admin: 06/18/24 05:33 Dose: 90 mg Tiotropium [place] (Tiotropium 2.5 Mcg Inhaler) 2 puff INHALATION RT-DAILY [facility] Last Admin: 06/18/24 12:43 Dose: Not Given Zolpidem Tartrate (Zolpidem 5 Mg Tab) 5 mg PO HS PRN PRN Reason: Insomnia On examination: VITAL SIGNS: 97.4, 63, 12, 110 x 48, 97% on 4 L GENERAL APPEARANCE: Reclining in bed, appears comfortable HEENT: Normal external appearance of nose and ear. Oral cavity normal EYES: Pupils equal. Conjunctiva normal. NECK: JVD not raised. Mass not palpable. RESPIRATORY: Respiratory effort increased, diminished breath sounds CARDIOVASCULAR: First and second sounds normal. No edema. ABDOMEN: Soft. Liver and spleen not palpable. No tenderness. No mass palpable. PSYCHIATRY: Alert and oriented x3. Mood and affect normal. INVESTIGATIONS, reviewed in the clinical context: June 16: Sodium 139 potassium 3.8 creatinine 0.85 June 14: Sodium 139 potassium 3.2 creatinine 0.77 SARS-CoV-2: Detected Assessment plan: -Postprocedure hypotension with bradycardia. IV dopamine at 5 mcg an hour -Paroxysmal atrial fibrillation rapid ventricular rate, on presentation. Now in sinus rhythm Coreg 6.25 mg twice daily. IV heparin -IV heparin monitoring, follow PTT - angioplasty of distal left main June 13. With further disease in RCA Plan for staged RCA intervention rescheduled for tomorrow with Dr. Lagos June 18: Redo of the RCA with at least 3/10. More details in Dr. Lagos's notes. -Acute exacerbation of systolic congestive heart failure, EF 30-35%: Clinically improved Bumex 1 mg a day. Aldactone. Entresto. Imdur. -COVID-19, stable On IV heparin -PAD status post femorofemoral bypass left right. Aspirin. Lipitor. -Acute COPD exacerbation, and a cigarette smoker: Stable Flovent Spiriva. Serevent -Acute hypoxic respiratory failure from above, present initially then improved. Currently on 4 L nasal cannula -Chronic nicotine dependence cigarette smoker Nicotine patch -CAD with a prior history of coronary bypass in 2011, redo in 2017 Aspirin. Lipitor. Coreg. Farxiga -Hyperlipidemia Lipitor -Essential hypertension running a bit on the lower side, also heart rate in low 50s Coreg -Renal cell carcinoma with history of cryosurgery in 2007 -Full code
[2024-06-19 07:12] LABS: Basophils % (A) 0 %; Eosinophils # (A) 0.1 k/uL (0-0.7); Eosinophils % (A) 1 %; HCT 41.7 % (39.0-53.0); HGB 13.6 gm/dL (13.0-17.5); Lymphocytes # (A) 1.4 k/uL (1.0-4.8); Lymphocytes % (A) 18 %; MCH 30.9 pg (25.0-35.0); MCHC 32.7 g/dL (31.0-37.0); MCV 94.6 fL (80.0-100.0); Mean Platelet Volume 8.3; Monocytes # (A) 0.3 k/uL (0-1.0); Monocytes % (A) 4 %; Neutrophils # (A) 5.9 k/uL (1.3-7.7); Neutrophils % (A) 76 %; RBC 4.41 m/uL (4.30-5.90); RDW 14.8 % (11.5-15.5); WBC 7.8 k/uL (3.8-10.6)
[2024-06-19 07:37] LABS: African American GFR (CKD) >90 (>60 ml/min/1.73 sqM); Anion Gap 6 mmol/L; Blood Urea Nitrogen 23 mg/dL (9-20); Calcium 8.2 mg/dL (8.4-10.2); Carbon Dioxide 28 mmol/L (22-30); Chloride 103 mmol/L (98-107); Glucose 110 mg/dL (74-99); Magnesium 2.2 mg/dL (1.6-2.3); Non-African American GFR(CKD) >90 (>60 ml/min/1.73 sqM); Sodium 137 mmol/L (137-145)
--- NOTE | 2024-06-19 07:39 | CA ---
Transthoracic Echo Report Name: Ke Bee Age: 69 Gender: M : 1955 Exam Date: 06/18/2024 12:12 Exam Location: [place] Ht (in): 71 Wt (lb): 200 Ordering Physician: Harsh Lagos MD ([id number]) Attending/Referring Phys: [employer] Elisa Gagnon RDCS Procedure CPT: Indications: chest pain following ptca Cardiac Hx: limited study Technical Quality: Fair Contrast 1: Total Dose (mL): Contrast 2: Total Dose (mL): MEASUREMENTS (Male / Female) Normal Values FINDINGS Left Ventricle Left ventricular ejection fraction is estimated at 35-40 %. Right Ventricle Right Atrium Left Atrium Mitral Valve Aortic Valve Tricuspid Valve Pulmonic Valve Pericardium No pericardial or pleural effusion. Aorta CONCLUSIONS Limited study No pericardial effusion Previewed by: Dr. Harsh Lagos MD (Electronically Signed) Final Date: 19 June 2024 07:38
--- NOTE | 2024-06-19 08:16 | XR ---
EXAMINATION TYPE: XR chest 1V portable DATE OF EXAM: 06/19/2024 5:27 AM COMPARISON: Chest radiographs from 06/12/2024 TECHNIQUE: XR chest 1V portable Portable AP radiograph of the chest. CLINICAL INDICATION:Male, 69 years old with history of dyspnea; FINDINGS: Lungs/Pleura: Blunting of the left costophrenic angle. No focal consolidation or pneumothorax. Pulmonary vascularity: Unremarkable. Heart/mediastinum: Cardiomediastinal silhouette is enlarged and stable. Atherosclerotic calcificatio ns are seen in the aorta. Post-CABG changes. Musculoskeletal: No acute osseous pathology. Midline sternotomy wires are noted and stable. IMPRESSION: 1. Small left pleural effusion. 2. Cardiomegaly with post-CABG changes. [facility], , 06/19/2024 8:14 AM
[2024-06-19 08:32] LABS: Platelet Count 92 k/uL (150-450)
--- NOTE | 2024-06-19 08:35 | P.PN ---
Subjective Progress Note Date: 06/19/24 PROGRESS NOTE The patient is a 69-year-old male, status post CABG who underwent stenting of his left main into the intermedius and yesterday underwent stenting of his RCA with atherectomy and requiring temporary pacemaker. He is feeling well this morning, denies any chest discomfort, dizziness or palpitations. He continues to be on low-dose dopamine and has a temporary pacemaker set at 60 with occasion al pacing. He has not had any discomfort in the chest, he had some symptoms during the intervention. He has no dizziness or palpitations and his breathing is stable. He denies any nausea or vomiting. He is in sinus mechanism. His echocardiogram showed an ejection fraction of 35 to 40% Medications: Aspirin 81 mg daily, dopamine, Lipitor 80 mg daily, Bumex 1 mg daily, Farxiga 10 mg daily, Ranexa 500 mg twice a day, Brilinta 90 mg twice a day PHYSICAL EXAMINATION: Blood pressure 110/60 heart rate 62 LUNGS: Clear to auscultation HEART: Regular rate and rhythm, S1, S2. No S3. Systolic ejection murmur ABDOMEN: Soft, nontender, no organomegaly EXTREMETIES: No edema, left groin no hematoma, right groin with temporary pacemaker site noted, dry LAB: BUN 23, creatinine 0.75, potassium 4.0, hemoglobin 13.6 IMPRESSION: 1. Status post stenting of the RCA with atherectomy and need of temporary pacemaker 2. Status post CABG with redo surgery 3. Hyperlipidemia 4. Paroxysmal atrial fibrillation, maintaining sinus mechanism 5. History of cardiomyopathy PLAN: 1. IV fluid bolus time 1 2. Wean IV dopamine as tolerated 3. Decrease backup pacing rate to 50 and monitor the need for pacemaker 4. Continue dual antiplatelet treatment 5. Depending on the progress further recommendations will be made Objective - Vital Signs Vital signs: Vital Signs Temp 98.5 F 06/19/24 04:00 Pulse 62 06/19/24 07:00 Resp 11 L 06/19/24 07:00 BP 110/65 06/19/24 07:00 Pulse Ox 96 06/19/24 07:00 FiO2 Intake & Output 06/18/24 06/19/24 06/19/24 18:59 06:59 18:59 Intake Total 1630 998.773 85 Output Total 1600 1100 Balance 30 -101.227 85 Weight 95.4 kg Intake: IV 1555 110 10 Sodium Chloride 0.9% 1, 225 000 ml In Empty Bag 1 bag @ 75 mls/hr IV .[id number] [facility] Rx#:[id number] TVP 30 110 10 Intake, IV Titration 75 888.773 75 Amount DOPamine DRIP 800 mg In 63.773 Dextrose/Water 1 250ml. bag @ 5 MCG/KG/MIN 8.522 mls/hr IV .Q24H [facility] Rx#: [id number] Sodium Chloride 0.9% 1, 825 75 000 ml @ 0 mls/hr IV .[facility] Rx#:[id number] Sodium Chloride 0.9% 1, 75 000 ml In Empty Bag 1 bag @ 75 mls/hr IV .[id number] [facility] Rx#:[id number] Output: Urine 1600 1100 Other: Voiding Method Urinal Urinal - Labs CBC & Chem 7: 06/19/24 06:23 06/19/24 06:23 Labs: Abnormal Lab Results - Last 24 Hours (Table) 06/18/24 06/19/24 Range/Units 15:03 06:23 BUN 23 H (9-20) mg/dL Glucose 110 H (74-99) mg/dL POC Glucose (mg/dL) 147 H (70-110) mg/dL Calcium 8.2 L (8.4-10.2) mg/dL
[2024-06-19] MEDS: ACETAMINOPHEN TAB 325 MG TAB PO PRN (11:13)
[2024-06-19] MEDS: SODIUM CHLORIDE 0.9% 500 ML 500 ML IV ONE (11:14)
--- NOTE | 2024-06-19 15:04 | P.PN ---
Progress Note - Text Progress Note Date: 06/19/24 I am rounding for Dr. Patrice Ambrose. June 14, 2024: Multiple medical issues. Sitting at edge of bed. Eating supper. Decreased cough. Eating fair. Decreased shortness of breath. Nasal cannula. June 15, 2024: Resting bed. No chest pain. Breathing stable. Patient informed me that he will have further intervention by Dr. Lagos on Monday. Has been in sinus rhythm. June [id number]. Up to the bathroom. No chest pain. Breathing remained stable. Dr. Case/cardiology arranging for Dr. Lagos to do the redo intervention tomorrow. Blood pressure running on the lower side. Decrease Coreg to 18 twice daily. Also heart rate down to low 50s. June 17: Resting in bed. Has been up to the bathroom. Supposed to have a cardiac cath today now rescheduled for tomorrow. No chest pain. Breathing stable. Very slight cough. Because of low blood pressure decrease heart rate cardiology further decrease the Coreg. 6.25 twice daily. June 18: Patient taken to the [facility] today by Dr. Lagos. It was a rather lengthy process. Patient at least had 3 stents placed in RCA. Including angioplasty. More details in Dr. Lagos's notes. Subsequently patient became bradycardic and hypotensive. Postprocedure admitted to the ICU. On dopamine. 5 mcg an hour. On nasal cannula 4 L. Postprocedure no chest pain June 19: ICU. TVP set at 50. Patient heart rate hovering around 60 currently. Dopamine down to 2.5 mics. Tolerating diet. 4 L nasal cannula. Occasional cough. Platelets 92. Keep a close eye Active Medications Acetaminophen (Acetaminophen Tab 325 Mg Tab) 650 mg PO Q6HR PRN PRN Reason: Fever and/ or Pain Last Admin: 06/19/24 11:13 Dose: 650 mg Al Hydroxide/Mg Hydroxide (Mag Hydrox/Al Hydrox/Simeth 30 Ml Cup) 30 ml PO Q4HR PRN PRN Reason: Heartburn Alprazolam (Alprazolam 0.25 Mg Tab) 0.25 mg PO Q6HR PRN PRN Reason: Mild Anxiety Last Admin: 06/18/24 05:36 Dose: 0.25 mg Alprazolam (Alprazolam 0.5 Mg Tab) 0.5 mg PO Q6HR PRN PRN Reason: Moderate Anxiety Last Admin: 06/13/24 06:33 Dose: 0.5 mg Aspirin (Aspirin 81 Mg) 81 mg PO DAILY [facility] Last Admin: 06/19/24 09:24 Dose: 81 mg Atorvastatin Calcium (Atorvastatin 80 Mg Tab) 80 mg PO DAILY [facility] Last Admin: 06/19/24 09:24 Dose: 80 mg Atropine Sulfate (Atropine Sulfate 0.1 Mg/Ml 10ml Syringe) 0.5 mg IV ONCE PRN PRN Reason: Symptomatic Bradycardia Benzonatate (Benzonatate 100 Mg Cap) 100 mg PO TID PRN PRN Reason: Cough Last Admin: 06/14/24 13:29 Dose: 100 mg Bumetanide (Bumetanide 1 Mg Tab) 1 mg PO DAILY [facility] Last Admin: 06/19/24 09:24 Dose: 1 mg Dapagliflozin (Dapagliflozin Propanediol 10 Mg Tablet) 10 mg PO DAILY [facility] Last Admin: 06/19/24 09:25 Dose: 10 mg Fluticasone Propionate (Fluticasone Nasal 50mcg/[place] 16gm Btl) 2 spray EA NOSTRIL DAILY [facility] Last Admin: 06/19/24 09:25 Dose: Not Given Fluticasone Propionate (Fluticasone 220 Mcg Inhaler) 2 puff INHALATION RT-BID [facility] Last Admin: 06/19/24 08:33 Dose: 2 puff Guaifenesin/Dextromethorphan (Guaifenesin-Dm 600/30mg 1 Each Tab.Er.12h) 2 each PO Q12HR PRN PRN Reason: Cough Last Admin: 06/18/24 01:02 Dose: 2 each Dopamine HCl/Dextrose 800 mg/ (IV Solution) 250 mls @ 8.522 mls/hr IV .Q24H [facility]; Protocol Last Titration: 06/19/24 12:05 Dose: 2.5 mcg/kg/min, 4.261 mls/hr Loratadine (Loratadine 10 Mg Tab) 10 mg PO DAILY [facility] Last Admin: 06/19/24 09:24 Dose: 10 mg Miscellaneous Information (Rx Info: Iv Contrast Was Given 1 Each Misc) 1 each MISCELLANE DAILY PRN PRN Reason: Per Protocol Stop: 06/20/24 12:07 Nicotine (Nicotine 21mg/24hr Patch) 1 patch TRANSDERM DAILY [facility] Last Admin: 06/19/24 09:24 Dose: 1 patch Nitroglycerin (Nitroglycerin Sl Tabs 0.4 Mg Tab) 0.4 mg SUBLINGUAL Q5M PRN PRN Reason: Chest Pain Prednisone (Prednisone 20 Mg Tab) 20 mg PO DAILY [facility] Ranolazine (Ranolazine 500 Mg Tab.Er.12h) 500 mg PO Q12HR [facility] Last Admin: 06/19/24 09:24 Dose: 500 mg Salmeterol Xinafoate (Salmeterol 50 Mcg Inhaler) 1 puff INHALATION RT-BID [facility] Last Admin: 06/19/24 08:33 Dose: 1 puff Ticagrelor (Ticagrelor 90 Mg Tab) 90 mg PO BID [facility]; Protocol Last Admin: 06/19/24 09:24 Dose: 90 mg Tiotropium [place] (Tiotropium 2.5 Mcg Inhaler) 2 puff INHALATION RT-DAILY [facility] Last Admin: 06/19/24 08:33 Dose: 2 puff Zolpidem Tartrate (Zolpidem 5 Mg Tab) 5 mg PO HS PRN PRN Reason: Insomnia On examination: VITAL SIGNS: 98.2, 62, 15, 83 x 46, 95% on 4 L GENERAL APPEARANCE: Reclining in bed, awake HEENT: Normal external appearance of nose and ear. Oral cavity normal EYES: Pupils equal. Conjunctiva normal. NECK: JVD not raised. Mass not palpable. RESPIRATORY: Respiratory effort increased, diminished breath sounds CARDIOVASCULAR: First and second sounds normal. No edema. ABDOMEN: Soft. Liver and spleen not palpable. No tenderness. No mass palpable. PSYCHIATRY: Alert and oriented x3. Mood and affect normal. INVESTIGATIONS, reviewed in the clinical context: June 19: White count 7.8 hemoglobin 13.6 platelets 92 potassium 4 creatinine 0.75 June 16: Sodium 139 potassium 3.8 creatinine 0.85 June 14: Sodium 139 potassium 3.2 creatinine 0.77 SARS-CoV-2: Detected Assessment plan: -Postprocedure hypotension with bradycardia.: Slow to respond IV dopamine at 2.5 mcg an hour Transvenous pacemaker: Set at 50 -Paroxysmal atrial fibrillation rapid ventricular rate, on presentation. Now in sinus rhythm Coreg-held. - angioplasty of distal left main June 13. With further disease in RCA Plan for staged RCA intervention rescheduled for tomorrow with Dr. Lagos June 18: Redo of the RCA with at least /. More details in Dr. Lagos's notes. -Acute exacerbation of systolic congestive heart failure, EF 30-35%: Clinically improved Bumex 1 mg a day. [Aldactone and Entresto held] -COVID-19, stable -PAD status post femorofemoral bypass left right. Aspirin. Lipitor. -Acute COPD exacerbation, and a cigarette smoker: Stable Flovent Spiriva. Serevent -Acute hypoxic respiratory failure from above, present initially then improved. Currently on 4 L nasal cannula -Chronic nicotine dependence cigarette smoker Nicotine patch -CAD with a prior history of coronary bypass in 2011, redo in 2017 Aspirin. Lipitor. Farxiga -Hyperlipidemia Lipitor -Essential hypertension running a bit on the lower side, also heart rate in low 50s Has blood pressure running low antihypertensives have been held -Renal cell carcinoma with history of cryosurgery in 2007 -Full code
--- NOTE | 2024-06-19 16:10 | P.PN ---
Subjective Progress Note Date: 06/19/24 Patient is a 68-year-old white male with past medical history significant for COPD, chronic ongoing tobacco dependence, coronary artery disease with previous CABG and redo, left hemidiaphragm paralysis status/post plication, hypertension, hyperlipidemia, CVA/TIA, carotid artery stenosis status/post bilateral carotid endarterectomy, among other things. He follows at the [facility] for his primary care needs. Patient is known to have COPD, which is usually fairly well-controlled. He is unsure of his inhalers. Continues to smoke cigarettes approximately 6/day. Of note, patient recently hospitalized at [facility], reportedly for COVID-19 and pneumonia. Discharged from the outside facility on 06/09/2024, then returned yesterday with similar complaints of shortness of breath. While in the ER, noted to be in atrial fibrillation with rapid ventricular rate. His troponins were elevated. The patient was started on a combination of Cardizem at 5 mg/h, as well as, systemic IV heparin. Patient then transferred to [facility]. He is currently being evaluated on the cardiac stepdown unit. He is sitting at the edge of the bed. On 4 L/min nasal cannula. Not in any respiratory distress. His primary complaint is shortness of breath. He has a nonproductive cough. Denies any fever/chills, sputum production, hemoptysis. Faint expiratory wheezes heard bilaterally. Denies any chest pain. Does endorse some lightheadedness and heart palpitations prior to going to the emergency department at [facility]. Denies any syncopal events, orthopnea, PND, lower extremity swelling. Heart rate currently better controlled ranging from 80 to 100 bpm. Blood pressure is normotensive. Continues on Cardizem at 5 mg/h. Also, systemically heparinized per protocol. Chest x-ray done at our facility showing cardiomegaly, mild pulmonary vascular congestion, and possible retrocardiac infiltrate or atelectasis. Prior sternotomy wires noted. Patient states that he is going for heart catheterization Progress note dated June 13, 2024. 69-year-old male seen today in room 376. The patient is apparently scheduled to have a cardiac catheterization today. He continues on IV heparin, and saline at 20 cc an hour. He is got nasal O2, at 3 L. The patient is a DO NOT RESUSCITATE patient. The patient was transferred over from [facility]. Current laboratory data includes a white count 4.3, hemoglobin 11.9, hematocrit 37.2, and a platelet count of 402,000. PTT is 54.3. Sodium 140, potassium 3.7, chlorides 99, CO2 38, BUN 17, creatinine 0.82. Glucose was 110. Calcium is 8.5. The patient did test positive for coronavirus. Chest x-ray from yesterday shows a pattern consistent with mild CHF. Progress note dated June 14, 2024. 69-year-old male seen today in room 376. The patient is resting comfortably in bed. He is on 3 L nasal cannula. He is not receiving any IV fluids. The patient did have a PCI, of his distal left main coronary artery, yesterday. The patient states that he might be discharged, and will be brought back, for another catheterization. He has a full code currently although previously he w as a DO NOT RESUSCITATE patient. Current laboratory data includes a sodium 139, potassium 3.2, chlorides 99, CO2 37, BUN 17, creatinine 0.77. The patient did test positive for coronavirus. The patient is seen today June 15, 2024 in follow-up on the selective care unit. He is currently resting comfortably in bed. Awake and alert in no acute distress. Denies any worsening shortness of breath, cough or congestion. Denies any chest pain. He is maintaining O2 saturations in the 90s on 3 L/min per nasal cannula. He remains on IV diuretics. Continued on Spiriva and Serevent and Flovent. Continued on a prednisone taper. Continued on Tessalon Perles. Earlene on Brilinta and aspirin. Currently in a -170 mL balance. Progress note dated June 16, 2024. The patient is seen today in room 376. The patient continues on 2 L of oxygen. No IV fluids. The patient tells me he is scheduled for cardiac catheterization tomorrow, June 17. He denies any shortness of breath, cough, wheezing, chest tightness, or phlegm production. He also denies any chest pain or pressure, palpitations, fluttering, etc. Current laboratory data includes a sodium 139, potassium 3.8, chlorides 99, CO2 39, BUN 24, creatinine 0.85. Glucose is 95. Calcium is 8.8. On today's evaluation of 06/17/2024, the patient is being seen for a follow-up. The patient is calm and comfortable. The patient was supposed to undergo a cardiac catheterization today. This Postponed till tomorrow. Meanwhile, is free of any chest pain. The patient remains on IV heparin. Rest of the medications are essentially unchanged. Remains on Coreg 6.25 mg p.o. twice a day. The patient is on Bumex 1 mg p.o. daily and Aldactone 25 mg p.o. daily. The patient is also on Entresto 49/51 1 tablet twice daily. The patient is post COVID-19 infection. The patient is currently on prednisone 30 mg p.o. daily. Oxygenation is stable and the patient is currently on room air oxygen with a pulse ox of 93%. Most recent chest x-ray from 06/12/2024 showed CHF with pulm vascular congestion and small to moderate left and small right-sided pleural effusion. The patient had a procalcitonin level of 0.05 at the time of admiss ion. BUN is 24 with a creatinine of 0.8 and sodium levels at 139. His scheduled to undergo cardiac catheterization with PCI to RCA. He did undergo cardiac catheterization during this current admissionwith Dr. Lagos finding severe triple-vessel CAD, patent BENITEZ to LAD, occluded SVG to ramus intermedius, patent graft to PLV of the LCx, RCA has a critical disease distally and appears to be unprotected. Subsequently, patient underwent PCI of the distal left main and ramus intermedius. He remains on a combination of Brilinta and aspirin. 06/18/2024, the patient is being seen in the intensive care unit. The patient was taken to the [facility] and the patient underwent successful stenting of the distal in the mid and proximal RCA that was extensively calcified and tortuous. There was reduction of the stenosis from 99% to 0%. The access was done through the left common femoral artery. Following the procedure, the patient encountered bradycardia. He also encountered hypotension. Blood pressure medication have been discontinued in addition to any AV yordan blockers. The patient was started on dopamine and he was given a TVP with a backup rate of 60. The patient is currently hemodynamically stable. Free of any chest pain. He remains on aspirin. He remains on Brilinta. Beta-blockers have been discontinued. He continues to complete his prednisone burst taper that was given to him for the COVID-19 infection. Rest of medications remain unchanged. He is currently off Coreg. He is also placed on oxygen and currently on 4 L of O2 nasal cannula with pulse ox of 99%. On 06/19/2024, the patient is being seen for a follow-up. This morning, the patient is calm and comfortable and the patient is currently hemodynamically stable. Remains on 40 of oxygen by nasal cannula. Denies having any chest pain. His heart rate has improved and the patient remains in normal sinus rhy thm. The patient remains on dopamine at 5 mcg/kg/min and the patient has a TVP and the backup rate has been dropped down to 50. The contribution from the TVP is minimal at this point in time. He will be given another bolus of IV fluids 500 cc and following that, dopamine will be gradually weaned off. The white cell count is 7.8, he was 13.6 and a platelet count of 92. BUN 23 with a creatinine 0.7 and sodium is 137 and a potassium level is at 4. The patient remains on aspirin and Brilinta. No beta-blockers for now. Remains on Spiriva and Flovent. Remains on Bumex and prednisone burst taper regarding his COVID-19 infection and the prednisone dose will be dropped down to 20 mg p.o. daily. No other significant events overnight. Objective - Vital Signs Vital signs: Vital Signs Temp 97.7 F 06/19/24 08:00 Pulse 67 06/19/24 09:00 Resp 17 06/19/24 09:00 BP 125/54 06/19/24 09:00 Pulse Ox 96 06/19/24 09:00 FiO2 Intake & Output 06/18/24 06/19/24 06/19/24 18:59 06:59 18:59 Intake Total 1630 998.773 105 Output Total 1600 1100 700 Balance 30 -101.227 -595 Weight 95.4 kg Intake: IV 1555 110 30 Sodium Chloride 0.9% 1, 225 000 ml In Empty Bag 1 bag @ 75 mls/hr IV .[id number] [facility] Rx#:[id number] TVP 30 110 30 Intake, IV Titration 75 888.773 75 Amount DOPamine DRIP 800 mg In 63.773 Dextrose/Water 1 250ml. bag @ 5 MCG/KG/MIN 8.522 mls/hr IV .Q24H [facility] Rx#: [id number] Sodium Chloride 0.9% 1, 825 75 000 ml @ 0 mls/hr IV .STK -[facility] Rx#:[id number] Sodium Chloride 0.9% 1, 75 000 ml In Empty Bag 1 bag @ 75 mls/hr IV .[id number] [facility] Rx#:[id number] Output: Urine 1600 1100 700 Other: Voiding Method Urinal Urinal Urinal - Exam GENERAL EXAM: Alert, active, 69-year-old male comfortable in no apparent distress. The patient is currently on 4 L of O2 nasal cannula. HEAD: Normocephalic. EYES: Normal reaction of pupils, equal size. NOSE: Clear with pink turbinates. THROAT: No erythema or exudates. NECK: No masses, no JVD. CHEST: No chest wall deformity. LUNGS: Equal air entry with no crackles, wheeze, rhonchi or dullness. CVS: S1 and S2 normal with no audible murmur, regular rhythm. ABDOMEN: No hepatosplenomegaly, normal bowel sounds, no guarding or rigidity. TTP catheter through the right groin. SPINE: No scoliosis or deformity SKIN: No rashes CENTRAL NERVOUS SYSTEM: No focal deficits, tone is normal in all 4 extremities. EXTREMITIES: There is no peripheral edema. No clubbing, no cyanosis. Peripheral pulses are intact. - Labs CBC & Chem 7: 06/19/24 06:23 06/19/24 06:23 Labs: Abnormal Lab Results - Last 24 Hours (Table) 06/18/24 06/19/24 06/19/24 Range/Units 15:03 06:23 06:23 Plt Count 92 L (150-450) k/uL BUN 23 H (9-20) mg/dL Glucose 110 H (74-99) mg/dL POC Glucose (mg/dL) 147 H (70-110) mg/dL Calcium 8.2 L (8.4-10.2) mg/dL Assessment and Plan Plan: Acute hypoxic respiratory failure, currently on 4 L of oxygen by nasal cannula. Acute NSTEMI status post PCI to left main to ramus. Residual disease to RCA. The patient underwent further coronary intervention, PCI and multiple stenting of the RCA. Procedure was complicated by hypotension and bradycardia arrhythmias and the patient currently is on dopamine and the TVP has been inserted with a backup rate of 50 blood pressure is adequate for now. Clinically asymptomatic. Free of any chest pain. The patient is currently off beta-blockers. The contribution from the TTP is minimal and the patient remains on dopamine running at 5 mcg/kg/min A-fib RVR on admission, currently in sinus rhythm. Ischemic cardiomyopathy with EF 30 to 35% Multivessel CAD with previous CABG and redo CABG in 2017 Bilateral carotid artery stenosis status post endarterectomy, bilateral Peripheral artery disease status post femorofemoral bypass left to right COVID infection and pneumonia, completing a prednisone burst taper COPD exacerbation, stable and improving the patient is currently on a prednisone burst taper Hypertension Hyperlipidemia Chronic tobacco use and dependence, <1ppd Obesity Plan Plan: Patient currently on 4 L of O2 nasal cannula Continue aspirin and Brilinta Keep Coreg and Entresto on hold Cardiac catheterization and PCI/stenting to the RCA was done completed Continue dopamine at 5 mcg/kg/min, gradual wean down dopamine after being given a bolus of 500 cc of normal saline TVP with a backup rate of 50 bpm Continue Bumex 1 mg p.o. daily Continue Aldactone Continue Lipitor 80 mg p.o. daily Farxiga 10 mg p.o. daily Ranexa 500 mg p.o. twice a day Continue Spiriva and Flovent Prednisone burst taper currently on 20 mg p.o. daily Will continue to follow and the patient was monitored in the intensive care unit for the next 24 to 48 hours. Critical care evaluation, 32 minutes Time with Patient: Greater than 30
[2024-06-20 05:43] LABS: HCT 40.1 % (39.0-53.0); HGB 12.7 gm/dL (13.0-17.5); Hypochromasia Slight; MCH 30.6 pg (25.0-35.0); MCHC 31.8 g/dL (31.0-37.0); MCV 96.2 fL (80.0-100.0); RBC 4.16 m/uL (4.30-5.90); RDW 14.5 % (11.5-15.5); WBC 6.2 k/uL (3.8-10.6)
[2024-06-20 06:07] LABS: African American GFR (CKD) >90 (>60 ml/min/1.73 sqM); Anion Gap 5 mmol/L; Blood Urea Nitrogen 22 mg/dL (9-20); Calcium 8.2 mg/dL (8.4-10.2); Carbon Dioxide 29 mmol/L (22-30); Chloride 105 mmol/L (98-107); Glucose 89 mg/dL (74-99); Non-African American GFR(CKD) >90 (>60 ml/min/1.73 sqM); Potassium 3.9 mmol/L (3.5-5.1); Sodium 139 mmol/L (137-145)
[2024-06-20 06:15] LABS: Platelet Count 75 k/uL (150-450)
--- NOTE | 2024-06-20 07:48 | P.PN ---
Subjective Progress Note Date: 06/20/24 PROGRESS NOTE The patient is a 69-year-old male, status post CABG who underwent stenting of his left main into the intermedius and yesterday underwent stenting of his RCA with atherectomy and requiring temporary pacemaker. He is feeling well this morning, denies any chest discomfort, dizziness or palpitations. He continues to be on low-dose dopamine and has a temporary pacemaker set at 60 with occasion al pacing. He has not had any discomfort in the chest, he had some symptoms during the intervention. He has no dizziness or palpitations and his breathing is stable. He denies any nausea or vomiting. He is in sinus mechanism. His echocardiogram showed an ejection fraction of 35 to 40% June 20: The patient is feeling well this morning, he denies any chest discomfort, dizziness or palpitations. He is off IV dopamine and his blood pressure is stable. He has very rare use of his temporary pacemaker. He continues to be in sinus mechanism with occasional PACs. His urine output is good. He denies any nausea or vomiting. Medications: Aspirin 81 mg daily, Lipitor 80 mg daily, Bumex 1 mg daily, Farxiga 10 mg daily, Ranexa 500 mg twice a day, Brilinta 90 mg twice a day PHYSICAL EXAMINATION: Blood pressure 130/60 heart rate 68 LUNGS: Clear to auscultation HEART: Regular rate and rhythm, S1, S2. No S3. Systolic ejection murmur ABDOMEN: Soft, nontender, no organomegaly EXTREMETIES: No edema, left groin no hematoma, right groin with temporary pacemaker site noted, dry LAB: BUN 22, creatinine 0.74, potassium 3.9, hemoglobin 12.7 IMPRESSION: 1. Status post stenting of the RCA with atherectomy and need of temporary pacemaker, stable 2. Status post CABG with redo surgery 3. Hyperlipidemia 4. Paroxysmal atrial fibrillation, maintaining sinus mechanism 5. History of cardiomyopathy PLAN: 1. Remove temporary pacemaker and if his heart rate is stable in 2 hours removes venous sheath. 2. Increase physical activity 3. Follow renal functions 4. If stable and ambulating probable discharge home tomorrow Objective - Vital Signs Vital signs: Vital Signs Temp 97.7 F 06/20/24 04:00 Pulse 68 06/20/24 07:00 Resp 11 L 06/20/24 07:00 BP 130/61 06/20/24 07:00 Pulse Ox 96 06/20/24 07:00 FiO2 Intake & Output 06/19/24 06/20/24 06/20/24 18:59 06:59 18:59 Intake Total 271.84 120 10 Output Total 3400 875 Balance -3128.16 -755 10 Weight 92.1 kg Intake: IV 120 120 10 TVP 120 120 10 Intake, IV Titration 151.84 Amount DOPamine DRIP 800 mg In 76.84 Dextrose/Water 1 250ml. bag @ 5 MCG/KG/MIN 8.522 mls/hr IV .Q24H [facility] Rx#: [id number] Sodium Chloride 0.9% 1, 75 000 ml @ 0 mls/hr IV .STK -[facility] Rx#:[id number] Output: Urine 3400 875 Other: Voiding Method Urinal Urinal # Voids 0 0 - Labs CBC & Chem 7: 06/20/24 05:05 06/20/24 05:05 Labs: Abnormal Lab Results - Last 24 Hours (Table) 06/19/24 06/20/24 06/20/24 Range/Units 06:23 05:05 05:05 RBC 4.16 L (4.30-5.90) m/uL Hgb 12.7 L (13.0-17.5) gm/dL Plt Count 92 L 75 L (150-450) k/uL BUN 22 H (9-20) mg/dL Calcium 8.2 L (8.4-10.2) mg/dL
[2024-06-20] MEDS: predniSONE 20 MG TAB PO SCH (11:16)
--- NOTE | 2024-06-20 15:51 | P.PN ---
Progress Note - Text Progress Note Date: 06/20/24 I am rounding for Dr. Patrice Ambrose. June 14, 2024: Multiple medical issues. Sitting at edge of bed. Eating supper. Decreased cough. Eating fair. Decreased shortness of breath. Nasal cannula. June 15, 2024: Resting bed. No chest pain. Breathing stable. Patient informed me that he will have further intervention by Dr. Lagos on Monday. Has been in sinus rhythm. June [id number]. Up to the bathroom. No chest pain. Breathing remained stable. Dr. Case/cardiology arranging for Dr. Lagos to do the redo intervention tomorrow. Blood pressure running on the lower side. Decrease Coreg to 18 twice daily. Also heart rate down to low 50s. June 17: Resting in bed. Has been up to the bathroom. Supposed to have a cardiac cath today now rescheduled for tomorrow. No chest pain. Breathing stable. Very slight cough. Because of low blood pressure decrease heart rate cardiology further decrease the Coreg. 6.25 twice daily. June 18: Patient taken to the [facility] today by Dr. Lagos. It was a rather lengthy process. Patient at least had 3 stents placed in RCA. Including angioplasty. More details in Dr. Lagos's notes. Subsequently patient became bradycardic and hypotensive. Postprocedure admitted to the ICU. On dopamine. 5 mcg an hour. On nasal cannula 4 L. Postprocedure no chest pain June 19: ICU. TVP set at 50. Patient heart rate hovering around 60 currently. Dopamine down to 2.5 mics. Tolerating diet. 4 L nasal cannula. Occasional cough. Platelets 92. Keep a close eye June 20: ICU. Patient is transvenous pacemaker disconnected. Patient is also off dopamine. Did walk a bit. No chest pain. Eating some. Active Medications Acetaminophen (Acetaminophen Tab 325 Mg Tab) 650 mg PO Q6HR PRN PRN Reason: Fever and/ or Pain Last Admin: 06/19/24 11:13 Dose: 650 mg Al Hydroxide/Mg Hydroxide (Mag Hydrox/Al Hydrox/Simeth 30 Ml Cup) 30 ml PO Q4HR PRN PRN Reason: Heartburn Alprazolam (Alprazolam 0.25 Mg Tab) 0.25 mg PO Q6HR PRN PRN Reason: Mild Anxiety Last Admin: 06/18/24 05:36 Dose: 0.25 mg Alprazolam (Alprazolam 0.5 Mg Tab) 0.5 mg PO Q6HR PRN PRN Reason: Moderate Anxiety Last Admin: 06/13/24 06:33 Dose: 0.5 mg Aspirin (Aspirin 81 Mg) 81 mg PO DAILY [facility] Last Admin: 06/20/24 11:15 Dose: 81 mg Atorvastatin Calcium (Atorvastatin 80 Mg Tab) 80 mg PO DAILY [facility] Last Admin: 06/20/24 11:16 Dose: 80 mg Atropine Sulfate (Atropine Sulfate 0.1 Mg/Ml 10ml Syringe) 0.5 mg IV ONCE PRN PRN Reason: Symptomatic Bradycardia Benzonatate (Benzonatate 100 Mg Cap) 100 mg PO TID PRN PRN Reason: Cough Last Admin: 06/14/24 13:29 Dose: 100 mg Bumetanide (Bumetanide 1 Mg Tab) 1 mg PO DAILY [facility] Last Admin: 06/20/24 11:15 Dose: 1 mg Dapagliflozin (Dapagliflozin Propanediol 10 Mg Tablet) 10 mg PO DAILY [facility] Last Admin: 06/20/24 11:15 Dose: 10 mg Fluticasone Propionate (Fluticasone Nasal 50mcg/[place] 16gm Btl) 2 spray EA NOSTRIL DAILY [facility] Last Admin: 06/20/24 11:16 Dose: Not Given Fluticasone Propionate (Fluticasone 220 Mcg Inhaler) 2 puff INHALATION RT-BID [facility] Last Admin: 06/20/24 09:44 Dose: 2 puff Guaifenesin/Dextromethorphan (Guaifenesin-Dm 600/30mg 1 Each Tab.Er.12h) 2 each PO Q12HR PRN PRN Reason: Cough Last Admin: 06/18/24 01:02 Dose: 2 each Dopamine HCl/Dextrose 800 mg/ (IV Solution) 250 mls @ 8.522 mls/hr IV .Q24H [facility]; Protocol Last Admin: 06/19/24 20:39 Dose: Not Given Loratadine (Loratadine 10 Mg Tab) 10 mg PO DAILY [facility] Last Admin: 06/20/24 11:15 Dose: 10 mg Nicotine (Nicotine 21mg/24hr Patch) 1 patch TRANSDERM DAILY [facility] Last Admin: 06/20/24 11:16 Dose: Not Given Nitroglycerin (Nitroglycerin Sl Tabs 0.4 Mg Tab) 0.4 mg SUBLINGUAL Q5M PRN PRN Reason: Chest Pain Prednisone (Prednisone 20 Mg Tab) 20 mg PO DAILY [facility] Last Admin: 06/20/24 11:16 Dose: 20 mg Ranolazine (Ranolazine 500 Mg Tab.Er.12h) 500 mg PO Q12HR [facility] Last Admin: 06/20/24 11:33 Dose: 500 mg Salmeterol Xinafoate (Salmeterol 50 Mcg Inhaler) 1 puff INHALATION RT-BID [facility] Last Admin: 06/20/24 09:45 Dose: 1 puff Ticagrelor (Ticagrelor 90 Mg Tab) 90 mg PO BID [facility]; Protocol Last Admin: 06/20/24 11:15 Dose: 90 mg Tiotropium [place] (Tiotropium 2.5 Mcg Inhaler) 2 puff INHALATION RT-DAILY [facility] Last Admin: 06/20/24 09:44 Dose: 2 puff Zolpidem Tartrate (Zolpidem 5 Mg Tab) 5 mg PO HS PRN PRN Reason: Insomnia On examination: VITAL SIGNS: 97.9,57, 16, 102 x 60, 96% GENERAL APPEARANCE: Reclining in bed, comfortable HEENT: Normal external appearance of nose and ear. Oral cavity normal EYES: Pupils equal. Conjunctiva normal. NECK: JVD not raised. Mass not palpable. RESPIRATORY: Respiratory effort increased, diminished breath sounds CARDIOVASCULAR: First and second sounds normal. No edema. ABDOMEN: Soft. Liver and spleen not palpable. No tenderness. No mass palpable. PSYCHIATRY: Alert and oriented x3. Mood and affect normal. INVESTIGATIONS, reviewed in the clinical context: June 20: White count 6.2 hemoglobin 13.7 platelets 75 potassium 3.9 creatinine 0.74 June 19: White count 7.8 hemoglobin 13.6 platelets 92 potassium 4 creatinine 0.75 June 16: Sodium 139 potassium 3.8 creatinine 0.85 June 14: Sodium 139 potassium 3.2 creatinine 0.77 SARS-CoV-2: Detected Assessment plan: -Postprocedure hypotension with bradycardia.: Better Patient had a transvenous pacemaker and IV dopamine. Dorinda discontinued -Paroxysmal atrial fibrillation rapid ventricular rate, on presentation. Now in sinus rhythm Coreg-held. - angioplasty of distal left main June 13. With further disease in RCA Plan for staged RCA intervention rescheduled for tomorrow with Dr. Lagos June 18: Redo of the RCA with at least /10. More details in Dr. Lagos's notes. -Acute exacerbation of systolic congestive heart failure, EF 30-35%: improved Bumex 1 mg a day. [Aldactone and Entresto held] -COVID-19, stable -PAD status post femorofemoral bypass left right. Aspirin. Lipitor. -Acute COPD exacerbation, and a cigarette smoker: Stable Flovent Spiriva. Serevent -Acute hypoxic respiratory failure from above, present initially then improved. FiO2 being dialed down -Chronic nicotine dependence cigarette smoker Nicotine patch -CAD with a prior history of coronary bypass in 2011, redo in 2017 Aspirin. Lipitor. Farxiga -Hyperlipidemia Lipitor -Essential hypertension running a bit on the lower side, also heart rate in low 50s Has blood pressure running low antihypertensives have been held -Renal cell carcinoma with history of cryosurgery in 2007 -Full code Increase activity. Move out of the ICU.
--- NOTE | 2024-06-20 16:25 | P.PN ---
Subjective Progress Note Date: 06/20/24 Patient is a 68-year-old white male with past medical history significant for COPD, chronic ongoing tobacco dependence, coronary artery disease with previous CABG and redo, left hemidiaphragm paralysis status/post plication, hypertension, hyperlipidemia, CVA/TIA, carotid artery stenosis status/post bilateral carotid endarterectomy, among other things. He follows at the [facility] for his primary care needs. Patient is known to have COPD, which is usually fairly well-controlled. He is unsure of his inhalers. Continues to smoke cigarettes approximately 6/day. Of note, patient recently hospitalized at [facility], reportedly for COVID-19 and pneumonia. Discharged from the outside facility on 06/09/2024, then returned yesterday with similar complaints of shortness of breath. While in the ER, noted to be in atrial fibrillation with rapid ventricular rate. His troponins were elevated. The patient was started on a combination of Cardizem at 5 mg/h, as well as, systemic IV heparin. Patient then transferred to [facility]. He is currently being evaluated on the cardiac stepdown unit. He is sitting at the edge of the bed. On 4 L/min nasal cannula. Not in any respiratory distress. His primary complaint is shortness of breath. He has a nonproductive cough. Denies any fever/chills, sputum production, hemoptysis. Faint expiratory wheezes heard bilaterally. Denies any chest pain. Does endorse some lightheadedness and heart palpitations prior to going to the emergency department at [facility]. Denies any syncopal events, orthopnea, PND, lower extremity swelling. Heart rate currently better controlled ranging from 80 to 100 bpm. Blood pressure is normotensive. Continues on Cardizem at 5 mg/h. Also, systemically heparinized per protocol. Chest x-ray done at our facility showing cardiomegaly, mild pulmonary vascular congestion, and possible retrocardiac infiltrate or atelectasis. Prior sternotomy wires noted. Patient states that he is going for heart catheterization Progress note dated June 13, 2024. 69-year-old male seen today in room 376. The patient is apparently scheduled to have a cardiac catheterization today. He continues on IV heparin, and saline at 20 cc an hour. He is got nasal O2, at 3 L. The patient is a DO NOT RESUSCITATE patient. The patient was transferred over from [facility]. Current laboratory data includes a white count 4.3, hemoglobin 11.9, hematocrit 37.2, and a platelet count of 402,000. PTT is 54.3. Sodium 140, potassium 3.7, chlorides 99, CO2 38, BUN 17, creatinine 0.82. Glucose was 110. Calcium is 8.5. The patient did test positive for coronavirus. Chest x-ray from yesterday shows a pattern consistent with mild CHF. Progress note dated June 14, 2024. 69-year-old male seen today in room 376. The patient is resting comfortably in bed. He is on 3 L nasal cannula. He is not receiving any IV fluids. The patient did have a PCI, of his distal left main coronary artery, yesterday. The patient states that he might be discharged, and will be brought back, for another catheterization. He has a full code currently although previously he w as a DO NOT RESUSCITATE patient. Current laboratory data includes a sodium 139, potassium 3.2, chlorides 99, CO2 37, BUN 17, creatinine 0.77. The patient did test positive for coronavirus. The patient is seen today June 15, 2024 in follow-up on the selective care unit. He is currently resting comfortably in bed. Awake and alert in no acute distress. Denies any worsening shortness of breath, cough or congestion. Denies any chest pain. He is maintaining O2 saturations in the 90s on 3 L/min per nasal cannula. He remains on IV diuretics. Continued on Spiriva and Serevent and Flovent. Continued on a prednisone taper. Continued on Tessalon Perles. Earlene on Brilinta and aspirin. Currently in a -170 mL balance. Progress note dated June 16, 2024. The patient is seen today in room 376. The patient continues on 2 L of oxygen. No IV fluids. The patient tells me he is scheduled for cardiac catheterization tomorrow, June 17. He denies any shortness of breath, cough, wheezing, chest tightness, or phlegm production. He also denies any chest pain or pressure, palpitations, fluttering, etc. Current laboratory data includes a sodium 139, potassium 3.8, chlorides 99, CO2 39, BUN 24, creatinine 0.85. Glucose is 95. Calcium is 8.8. On today's evaluation of 06/17/2024, the patient is being seen for a follow-up. The patient is calm and comfortable. The patient was supposed to undergo a cardiac catheterization today. This Postponed till tomorrow. Meanwhile, is free of any chest pain. The patient remains on IV heparin. Rest of the medications are essentially unchanged. Remains on Coreg 6.25 mg p.o. twice a day. The patient is on Bumex 1 mg p.o. daily and Aldactone 25 mg p.o. daily. The patient is also on Entresto 49/51 1 tablet twice daily. The patient is post COVID-19 infection. The patient is currently on prednisone 30 mg p.o. daily. Oxygenation is stable and the patient is currently on room air oxygen with a pulse ox of 93%. Most recent chest x-ray from 06/12/2024 showed CHF with pulm vascular congestion and small to moderate left and small right-sided pleural effusion. The patient had a procalcitonin level of 0.05 at the time of admiss ion. BUN is 24 with a creatinine of 0.8 and sodium levels at 139. His scheduled to undergo cardiac catheterization with PCI to RCA. He did undergo cardiac catheterization during this current admissionwith Dr. Lagos finding severe triple-vessel CAD, patent BENITEZ to LAD, occluded SVG to ramus intermedius, patent graft to PLV of the LCx, RCA has a critical disease distally and appears to be unprotected. Subsequently, patient underwent PCI of the distal left main and ramus intermedius. He remains on a combination of Brilinta and aspirin. 06/18/2024, the patient is being seen in the intensive care unit. The patient was taken to the [facility] and the patient underwent successful stenting of the distal in the mid and proximal RCA that was extensively calcified and tortuous. There was reduction of the stenosis from 99% to 0%. The access was done through the left common femoral artery. Following the procedure, the patient encountered bradycardia. He also encountered hypotension. Blood pressure medication have been discontinued in addition to any AV yordan blockers. The patient was started on dopamine and he was given a TVP with a backup rate of 60. The patient is currently hemodynamically stable. Free of any chest pain. He remains on aspirin. He remains on Brilinta. Beta-blockers have been discontinued. He continues to complete his prednisone burst taper that was given to him for the COVID-19 infection. Rest of medications remain unchanged. He is currently off Coreg. He is also placed on oxygen and currently on 4 L of O2 nasal cannula with pulse ox of 99%. On 06/19/2024, the patient is being seen for a follow-up. This morning, the patient is calm and comfortable and the patient is currently hemodynamically stable. Remains on 40 of oxygen by nasal cannula. Denies having any chest pain. His heart rate has improved and the patient remains in normal sinus rhy thm. The patient remains on dopamine at 5 mcg/kg/min and the patient has a TVP and the backup rate has been dropped down to 50. The contribution from the TVP is minimal at this point in time. He will be given another bolus of IV fluids 500 cc and following that, dopamine will be gradually weaned off. The white cell count is 7.8, he was 13.6 and a platelet count of 92. BUN 23 with a creatinine 0.7 and sodium is 137 and a potassium level is at 4. The patient remains on aspirin and Brilinta. No beta-blockers for now. Remains on Spiriva and Flovent. Remains on Bumex and prednisone burst taper regarding his COVID-19 infection and the prednisone dose will be dropped down to 20 mg p.o. daily. No other significant events overnight. 06/20/2024, the patient is being seen for a follow-up. The patient is awake alert and communicating. No chest pain. No significant shortness of breath. Noted, the patient was taken off dopamine drip as of 3 PM yesterday. The TVP was also discontinued at 7 AM this morning. Current cardiac rhythm is sinus with a rate of 60. The patient remains in 4 L of O2 nasal cannula. Rest of the medications remain unchanged. The patient is on aspirin and Brilinta. No beta- blockers. Remains on Bumex 1 mg p.o. daily, and Farxiga 10 mg p.o. daily. Remains on Lipitor 80 mg p.o. daily. Blood work from today shows a white cell count of 6.2, hemoglobin 12.7 and a platelet count of 75. BUN is 22 with a creatinine 0.7 and sodium is at 139. No neurologic complaints. No dizziness. No syncope. No other complaints otherwise for now. Objective - Vital Signs Vital signs: Vital Signs Temp 97.7 F 06/20/24 04:00 Pulse 68 06/20/24 07:00 Resp 11 L 06/20/24 07:00 BP 130/61 06/20/24 07:00 Pulse Ox 96 06/20/24 07:00 FiO2 Intake & Output 06/19/24 06/20/24 06/20/24 18:59 06:59 18:59 Intake Total 271.84 120 10 Output Total 3400 875 Balance -3128.16 -755 10 Weight 92.1 kg Intake: IV 120 120 10 TVP 120 120 10 Intake, IV Titration 151.84 Amount DOPamine DRIP 800 mg In 76.84 Dextrose/Water 1 250ml. bag @ 5 MCG/KG/MIN 8.522 mls/hr IV .Q24H [facility] Rx#: [id number] Sodium Chloride 0.9% 1, 75 000 ml @ 0 mls/hr IV .[facility] [facility] Rx#:[id number] Output: Urine 3400 875 Other: Voiding Method Urinal Urinal # Voids 0 0 - Exam GENERAL EXAM: Alert, active, 69-year-old male comfortable in no apparent distre ss. The patient is currently on 4 L of O2 nasal cannula. HEAD: Normocephalic. EYES: Normal reaction of pupils, equal size. NOSE: Clear with pink turbinates. THROAT: No erythema or exudates. NECK: No masses, no JVD. CHEST: No chest wall deformity. LUNGS: Equal air entry with no crackles, wheeze, rhonchi or dullness. CVS: S1 and S2 normal with no audible murmur, regular rhythm. ABDOMEN: No hepatosplenomegaly, normal bowel sounds, no guarding or rigidity. SPINE: No scoliosis or deformity SKIN: No rashes CENTRAL NERVOUS SYSTEM: No focal deficits, tone is normal in all 4 extremities. EXTREMITIES: There is no peripheral edema. No clubbing, no cyanosis. Peripheral pulses are intact. - Labs CBC & Chem 7: 06/20/24 05:05 06/20/24 05:05 Labs: Abnormal Lab Results - Last 24 Hours (Table) 06/20/24 06/20/24 Range/Units 05:05 05:05 RBC 4.16 L (4.30-5.90) m/uL Hgb 12.7 L (13.0-17.5) gm/dL Plt Count 75 L (150-450) k/uL BUN 22 H (9-20) mg/dL Calcium 8.2 L (8.4-10.2) mg/dL Assessment and Plan Plan: Acute hypoxic respiratory failure, currently on 4 L of oxygen by nasal cannula. Acute NSTEMI status post PCI to left main to ramus. Residual disease to RCA. The patient underwent further coronary intervention, PCI and multiple stenting of the RCA. Procedure was complicated by hypotension and bradycardia arrhythmias. The patient is currently off dopamine and TVP has been discontinued. Current rhythm is sinus A-fib RVR on admission, currently in sinus rhythm. Ischemic cardiomyopathy with EF 30 to 35% Multivessel CAD with previous CABG and redo CABG in 2017 Bilateral carotid artery stenosis status post endarterectomy, bilateral Peripheral artery disease status post femorofemoral bypass left to right COVID infection and pneumonia, completing a prednisone burst taper COPD exacerbation, stable and improving the patient is currently on a prednisone burst taper Hypertension Hyperlipidemia Chronic tobacco use and dependence, <1ppd Obesity Plan Plan: Patient currently on 4 L of O2 nasal cannula Continue aspirin and Brilinta Keep Coreg and Entresto on hold Cardiac catheterization and PCI/stenting to the RCA was done completed Patient is off dopamine TVP was discontinued Continue Bumex 1 mg p.o. daily Continue Aldactone Continue Lipitor 80 mg p.o. daily Farxiga 10 mg p.o. daily Ranexa 500 mg p.o. twice a day Continue Spiriva and Flovent Prednisone burst taper currently on 20 mg p.o. daily Will continue to follow and the patient was monitored in the intensive care unit for the next 24 to 48 hours. Critical care evaluation, 32 minutes Time with Patient: Greater than 30
[2024-06-21 01:24] VITALS: RESP 16
[2024-06-21 05:24] VITALS: PULSE 60
[2024-06-21 07:08] LABS: African American GFR (CKD) >90 (>60 ml/min/1.73 sqM); Anion Gap 5 mmol/L; Blood Urea Nitrogen 29 mg/dL (9-20); Calcium 8.4 mg/dL (8.4-10.2); Carbon Dioxide 33 mmol/L (22-30); Chloride 102 mmol/L (98-107); Glucose 97 mg/dL (74-99); Non-African American GFR(CKD) 88 (>60 ml/min/1.73 sqM); Potassium 4.1 mmol/L (3.5-5.1); Sodium 140 mmol/L (137-145)
[2024-06-21] MEDS ORDERED: APIXABAN 5 MG TAB PO SCH (10:30)
--- NOTE | 2024-06-21 10:32 | P.PN ---
Subjective HISTORY OF PRESENT ILLNESS: This is a 69-year-old male patient with past medical history of NSTEMI, multivessel CAD status post three-vessel CABG in 2011, peripheral artery disease status post femorofemoral bypass in 2011, ischemic cardiomyopathy with EF of 45%, carotid atherosclerosis status post carotid endarterectomy, hypertension, hyperlipidemia, CVA, renal cell carcinoma status post cryosurgery in 2007, COPD, chronic tobacco use and dependence ongoing. Patient also had a second bypass surgery for CAD in 2016. Patient had a recent hospitalization at [facility] for COPD exacerbation, COVID infection and pneumonia and was discharged on 06/09. Patient returned to the emergency center due to difficulty in breathing with progressively worsening shortness of breath. EKG was atrial fibrillation at 141 bpm.. He also had elevated troponins up to 2176, 2780, 2216. Chest x-ray showed mild cardiomegaly airspace opacities in the bilateral lower lung zones indicating pneumonia, small left pleural effusion. CT of the chest with contrast revealed small bilateral pleural effusions and persistent bibasilar opacities. Patient was started on a heparin drip, as well as, a bolus of Cardizem followed by IV Cardizem drip. Patient followed in the past with Dr. Melo and his last appointment was on 06/28/2016. He currently follows at the [facility]. Patient has been transferred to [facility] for further evaluation and cardiac catheterization. Patient has noted to have a congested cough. He remains in atrial fibrillation at 99 bpm. Patient states he continues to have shortness of breath and his breathing does not seem to be any better. He states he is unable to lay flat due to worsening shortness of breath. -Home cardiac medications: Coreg 12.5 mg twice daily, Plavix 75 mg daily, Jardiance 10 mg daily, Imdur 60 mg daily, Nitrostat as needed, Ranexa 500 mg every 12 hours, rosuvastatin 40 mg daily, Entresto 24-26 mg twice daily, spironolactone 25 mg daily. -Echocardiogram performed on 06/07/2024 at [facility] revealed left ventricle appears normal size. Global hypokinesis of the left ventricle. Mild concentric LVH, left ventricular systolic function is decreased to 30 to 35%. No significant valvular dysfunction. -CV surgery 04/19/2012: BENITEZ to LAD, SVG to diagonal, SVG to the RPDA. -Redo CABG 06/06/2016: Evidence of CAD both the lives in auto genus graft underwent redo with CABG x 2 with BENITEZ to obtuse marginal, SVG with bypass of the posterior lateral branch. 06/14 Patient seen and examined. Yesterday, patient underwent cardiac cath yesterday with Dr. Lagos finding severe triple-vessel CAD, patent BENITEZ to LAD, occluded SVG to ramus intermedius, patent graft to PLV of the LCx, RCA has a critical disease distally and appears to be unprotected. Subsequently, patient underwent PCI of the distal left main and ramus intermedius. Plan for dual antiplatelet therapy with aspirin and Brilinta for 12 months and staged PCI of the RCA. Discussed results with the patient and he is agreeable to monitor overnight and plan for outpatient PCI. Patient is on heparin drip which we will discontinue today. His heart rate sinus rhythm with a controlled rate. He denies having any chest pain or chest pressure no shortness of breath. Blood pressure 144/66, heart rate 54, pulse ox 100% on 3 L nasal cannula. Repeat blood work reveals sodium 139, potassium 3.2, BUN 17 creatinine 0.77. 06/15/2024 Patient is seen and examined at bedside this a.m. Patient is very apprehensive to go home. He would like to get his intervention done for his RCA during this hospitalization. He requested me to do so because he does not have any transportation to have frequent follow-ups and come to the hospital. He is also appearing to be mildly volume overloaded requiring the need for IV diuretics. He still recovering from his COVID-pneumonia. 06/16/2024 Patient is seen and examined at bedside. BP 113/62, heart rate 52 bpm. Sodium 24, creatinine 0.85 06/17/2024 Patient examined this morning at the bedside. Patient currently denies chest pain or pressure. He reports mild shortness of breath. Vital signs are stable. Patient was scheduled to undergo cardiac catheterization today with PCI to the RCA. However this has been rescheduled for tomorrow. June 20: The patient is feeling well this morning, he denies any chest discomfort, dizziness or palpitations. He is off IV dopamine and his blood pressure is stable. He has very rare use of his temporary pacemaker. He continues to be in sinus mechanism with occasional PACs. His urine output is good. He denies any nausea or vomiting. 06/21/2024 Examined this morning at the bedside. Patient has been transferred out of the ICU. Patient currently denies any chest pain or pressure. Patient states his breathing is improved this morning. He states that he received Mucinex yesterday which he believes has helped his symptoms. Telemetry reveals sinus mechanism. Heart rates are stable. PHYSICAL EXAM: VITAL SIGNS: Reviewed. GENERAL: Well-developed in no acute distress. NECK: Supple. No JVD or thyromegaly LUNGS: Respirations even and unlabored. Lungs essentially clear to auscultation bilaterally. HEART: Regular rate and rhythm. S1 and S2 heard. EXTREMITIES: Normal range of motion. No clubbing or cyanosis. Peripheral pulses intact. No lower extremity edema ASSESSMENT: New onset A-fib RVR on admission, currently in sinus rhythm. NSTEMI status post PCI to left main to ramus and stenting of the RCA with atherectomy and need of temporary pacemaker, stable Ischemic cardiomyopathy with EF 30 to 35% Multivessel CAD with previous CABG and redo CABG in 2017 Bilateral carotid artery stenosis status post endarterectomy Peripheral artery disease status post femorofemoral bypass left to right Recent COVID infection and pneumonia COPD exacerbation Hypertension Hyperlipidemia Chronic tobacco use and dependence, <1ppd Obesity PLAN: Continue aspirin and Brilinta Patient with one episode of atrial fibrillation during hospitalization. We will hold off on anticoagulation at this time. Continue high intensity statin. LDL goal less than 70. Beta blockers and antihypertensives discontinued secondary to hypotension and bradycardia. Re-eval on an outpatient basis. Continue additional cardiac medications Smoking cessation recommended. Patient to be referred to [place] quit line upon discharge. Patient is stable for discharge home today from a cardiac standpoint Patient states he prefers to follow up at the [facility]. Nurse practitioner note has been reviewed by physician. Signing provider agrees with the documented findings, assessment, and plan of care documented by [employer] TECHNICIAN as a scribe. Objective - Vital Signs Vital signs: Vital Signs Temp 97.9 F 06/21/24 04:00 Pulse 60 06/21/24 04:00 Resp 16 06/21/24 04:00 BP 152/72 06/21/24 04:00 Pulse Ox 96 06/21/24 04:00 FiO2 Intake & Output 06/20/24 06/21/24 06/21/24 18:59 06:59 18:59 Intake Total 500 20 Output Total 2024 Balance -1525 20 Weight 92.2 kg Intake: IV 20 20 Invasive Line 5 20 TVP 20 Oral 480 Output: Urine 2024 Other: Voiding Method Urinal Urinal # Voids 0 - Labs CBC & Chem 7: 06/20/24 05:05 06/21/24 06:11 Labs: Abnormal Lab Results - Last 24 Hours (Table) 06/21/24 Range/Units 06:11 Carbon Dioxide 33 H (22-30) mmol/L BUN 29 H (9-20) mg/dL
[2024-06-21 10:54] VITALS: BP 125/68; TEMP 97.5
--- NOTE | 2024-06-21 15:37 | P.PN ---
Subjective Progress Note Date: 06/21/24 Patient is a 68-year-old white male with past medical history significant for COPD, chronic ongoing tobacco dependence, coronary artery disease with previous CABG and redo, left hemidiaphragm paralysis status/post plication, hypertension, hyperlipidemia, CVA/TIA, carotid artery stenosis status/post bilateral carotid endarterectomy, among other things. He follows at the [facility] for his primary care needs. Patient is known to have COPD, which is usually fairly well-controlled. He is unsure of his inhalers. Continues to smoke cigarettes approximately 6/day. Of note, patient recently hospitalized at [facility], reportedly for COVID-19 and pneumonia. Discharged from the outside facility on 06/09/2024, then returned yesterday with similar complaints of shortness of breath. While in the ER, noted to be in atrial fibrillation with rapid ventricular rate. His troponins were elevated. The patient was started on a combination of Cardizem at 5 mg/h, as well as, systemic IV heparin. Patient then transferred to [facility]. He is currently being evaluated on the cardiac stepdown unit. He is sitting at the edge of the bed. On 4 L/min nasal cannula. Not in any respiratory distress. His primary complaint is shortness of breath. He has a nonproductive cough. Denies any fever/chills, sputum production, hemoptysis. Faint expiratory wheezes heard bilaterally. Denies any chest pain. Does endorse some lightheadedness and heart palpitations prior to going to the emergency department at [facility]. Denies any syncopal events, orthopnea, PND, lower extremity swelling. Heart rate currently better controlled ranging from 80 to 100 bpm. Blood pressure is normotensive. Continues on Cardizem at 5 mg/h. Also, systemically heparinized per protocol. Chest x-ray done at our facility showing cardiomegaly, mild pulmonary vascular congestion, and possible retrocardiac infiltrate or atelectasis. Prior sternotomy wires noted. Patient states that he is going for heart catheterization Progress note dated June 13, 2024. 69-year-old male seen today in room 376. The patient is apparently scheduled to have a cardiac catheterization today. He continues on IV heparin, and saline at 20 cc an hour. He is got nasal O2, at 3 L. The patient is a DO NOT RESUSCITATE patient. The patient was transferred over from [facility]. Current laboratory data includes a white count 4.3, hemoglobin 11.9, hematocrit 37.2, and a platelet count of 402,000. PTT is 54.3. Sodium 140, potassium 3.7, chlorides 99, CO2 38, BUN 17, creatinine 0.82. Glucose was 110. Calcium is 8.5. The patient did test positive for coronavirus. Chest x-ray from yesterday shows a pattern consistent with mild CHF. Progress note dated June 14, 2024. 69-year-old male seen today in room 376. The patient is resting comfortably in bed. He is on 3 L nasal cannula. He is not receiving any IV fluids. The patient did have a PCI, of his distal left main coronary artery, yesterday. The patient states that he might be discharged, and will be brought back, for another catheterization. He has a full code currently although previously he w as a DO NOT RESUSCITATE patient. Current laboratory data includes a sodium 139, potassium 3.2, chlorides 99, CO2 37, BUN 17, creatinine 0.77. The patient did test positive for coronavirus. The patient is seen today June 15, 2024 in follow-up on the selective care unit. He is currently resting comfortably in bed. Awake and alert in no acute distress. Denies any worsening shortness of breath, cough or congestion. Denies any chest pain. He is maintaining O2 saturations in the 90s on 3 L/min per nasal cannula. He remains on IV diuretics. Continued on Spiriva and Serevent and Flovent. Continued on a prednisone taper. Continued on Tessalon Perles. Earlene on Brilinta and aspirin. Currently in a -170 mL balance. Progress note dated June 16, 2024. The patient is seen today in room 376. The patient continues on 2 L of oxygen. No IV fluids. The patient tells me he is scheduled for cardiac catheterization tomorrow, June 17. He denies any shortness of breath, cough, wheezing, chest tightness, or phlegm production. He also denies any chest pain or pressure, palpitations, fluttering, etc. Current laboratory data includes a sodium 139, potassium 3.8, chlorides 99, CO2 39, BUN 24, creatinine 0.85. Glucose is 95. Calcium is 8.8. On today's evaluation of 06/17/2024, the patient is being seen for a follow-up. The patient is calm and comfortable. The patient was supposed to undergo a cardiac catheterization today. This Postponed till tomorrow. Meanwhile, is free of any chest pain. The patient remains on IV heparin. Rest of the medications are essentially unchanged. Remains on Coreg 6.25 mg p.o. twice a day. The patient is on Bumex 1 mg p.o. daily and Aldactone 25 mg p.o. daily. The patient is also on Entresto 49/51 1 tablet twice daily. The patient is post COVID-19 infection. The patient is currently on prednisone 30 mg p.o. daily. Oxygenation is stable and the patient is currently on room air oxygen with a pulse ox of 93%. Most recent chest x-ray from 06/12/2024 showed CHF with pulm vascular congestion and small to moderate left and small right-sided pleural effusion. The patient had a procalcitonin level of 0.05 at the time of admiss ion. BUN is 24 with a creatinine of 0.8 and sodium levels at 139. His scheduled to undergo cardiac catheterization with PCI to RCA. He did undergo cardiac catheterization during this current admissionwith Dr. Lagos finding severe triple-vessel CAD, patent BENITEZ to LAD, occluded SVG to ramus intermedius, patent graft to PLV of the LCx, RCA has a critical disease distally and appears to be unprotected. Subsequently, patient underwent PCI of the distal left main and ramus intermedius. He remains on a combination of Brilinta and aspirin. 06/18/2024, the patient is being seen in the intensive care unit. The patient was taken to the [facility] and the patient underwent successful stenting of the distal in the mid and proximal RCA that was extensively calcified and tortuous. There was reduction of the stenosis from 99% to 0%. The access was done through the left common femoral artery. Following the procedure, the patient encountered bradycardia. He also encountered hypotension. Blood pressure medication have been discontinued in addition to any AV yordan blockers. The patient was started on dopamine and he was given a TVP with a backup rate of 60. The patient is currently hemodynamically stable. Free of any chest pain. He remains on aspirin. He remains on Brilinta. Beta-blockers have been discontinued. He continues to complete his prednisone burst taper that was given to him for the COVID-19 infection. Rest of medications remain unchanged. He is currently off Coreg. He is also placed on oxygen and currently on 4 L of O2 nasal cannula with pulse ox of 99%. On 06/19/2024, the patient is being seen for a follow-up. This morning, the patient is calm and comfortable and the patient is currently hemodynamically stable. Remains on 40 of oxygen by nasal cannula. Denies having any chest pain. His heart rate has improved and the patient remains in normal sinus rhy thm. The patient remains on dopamine at 5 mcg/kg/min and the patient has a TVP and the backup rate has been dropped down to 50. The contribution from the TVP is minimal at this point in time. He will be given another bolus of IV fluids 500 cc and following that, dopamine will be gradually weaned off. The white cell count is 7.8, he was 13.6 and a platelet count of 92. BUN 23 with a creatinine 0.7 and sodium is 137 and a potassium level is at 4. The patient remains on aspirin and Brilinta. No beta-blockers for now. Remains on Spiriva and Flovent. Remains on Bumex and prednisone burst taper regarding his COVID-19 infection and the prednisone dose will be dropped down to 20 mg p.o. daily. No other significant events overnight. 06/20/2024, the patient is being seen for a follow-up. The patient is awake alert and communicating. No chest pain. No significant shortness of breath. Noted, the patient was taken off dopamine drip as of 3 PM yesterday. The TVP was also discontinued at 7 AM this morning. Current cardiac rhythm is sinus with a rate of 60. The patient remains in 4 L of O2 nasal cannula. Rest of the medications remain unchanged. The patient is on aspirin and Brilinta. No beta- blockers. Remains on Bumex 1 mg p.o. daily, and Farxiga 10 mg p.o. daily. Remains on Lipitor 80 mg p.o. daily. Blood work from today shows a white cell count of 6.2, hemoglobin 12.7 and a platelet count of 75. BUN is 22 with a creatinine 0.7 and sodium is at 139. No neurologic complaints. No dizziness. No syncope. No other complaints otherwise for now. On 06/21/2024, the patient is being seen for a follow-up. Doing extremely well. He is currently on room air oxygen. No significant chest pain or shortness of breath. Cardiac rhythm is sinus. The patient is post acute NSTEMI and stenting of the RCA. He has cardiomyopathy with ejection fraction of 30 to 35%. He is also known to have coronary artery disease with previous bypass surgery. He completed a course of prednisone burst taper regarding his COVID-19 infection. He is doing well for now. In terms of his cardiac condition, the patient remains on a combination of aspirin and Brilinta. The patient is also on Coreg 12.5 mg p.o. twice a day, Entresto 1 tablet a day, Crestor 40 mg p.o. daily and Imdur 60 mg p.o. daily and Jardiance 10 mg p.o. daily. His electrolytes from today shows a BUN of 29 with a creatinine of 0.8. Sodium level is at 140. Calcium level is at 8.4. Ambulating. No new other new complaints. Objective - Vital Signs Vital signs: Vital Signs Temp 97.5 F L 06/21/24 09:15 Pulse 60 06/21/24 09:15 Resp 16 06/21/24 09:15 BP 125/68 06/21/24 09:15 Pulse Ox 95 06/21/24 09:15 FiO2 Intake & Output 06/20/24 06/21/24 06/21/24 18:59 06:59 18:59 Intake Total 500 20 10 Output Total 2024 Balance -1525 20 10 Weight 92.2 kg Intake: IV 20 20 10 Invasive Line 5 20 10 TVP 20 Oral 480 Output: Urine 2024 Other: Voiding Method Urinal Urinal Urinal # Voids 0 - Exam GENERAL EXAM: Alert, active, 69-year-old male comfortable in no apparent distress. The patient is currently on room air oxygen HEAD: Normocephalic. EYES: Normal reaction of pupils, equal size. NOSE: Clear with pink turbinates. THROAT: No erythema or exudates. NECK: No masses, no JVD. CHEST: No chest wall deformity. LUNGS: Equal air entry with no crackles, wheeze, rhonchi or dullness. CVS: S1 and S2 normal with no audible murmur, regular rhythm. ABDOMEN: No hepatosplenomegaly, normal bowel sounds, no guarding or rigidity. SPINE: No scoliosis or deformity SKIN: No rashes CENTRAL NERVOUS SYSTEM: No focal deficits, tone is normal in all 4 extremities. EXTREMITIES: There is no peripheral edema. No clubbing, no cyanosis. Peripheral pulses are intact. - Labs CBC & Chem 7: 06/20/24 05:05 06/21/24 06:11 Labs: Abnormal Lab Results - Last 24 Hours (Table) 06/21/24 Range/Units 06:11 Carbon Dioxide 33 H (22-30) mmol/L BUN 29 H (9-20) mg/dL Assessment and Plan Plan: Acute hypoxic respiratory failure, currently on room air oxygen Acute NSTEMI status post PCI to left main to ramus. Residual disease to RCA. The patient underwent further coronary intervention, PCI and multiple stenting of the RCA. Procedure was complicated by hypotension and bradycardia arrhythmias. The patient is currently off dopamine and TVP has been discontinued. Current rhythm is sinus A-fib RVR on admission, currently in sinus rhythm. Ischemic cardiomyopathy with EF 30 to 35% Multivessel CAD with previous CABG and redo CABG in 2017 Bilateral carotid artery stenosis status post endarterectomy, bilateral Peripheral artery disease status post femorofemoral bypass left to right COVID infection and pneumonia, completing a prednisone burst taper COPD exacerbation, stable and improving the patient is currently on a prednisone burst taper Hypertension Hyperlipidemia Chronic tobacco use and dependence, <1ppd Obesity Plan Plan: Patient currently on room air oxygen Continue aspirin and Brilinta Coreg and Entresto were restarted Cardiac catheterization and PCI/stenting to the RCA was done completed Patient is off dopamine TVP was discontinued Continue Bumex 1 mg p.o. daily Continue Aldactone Continue Lipitor 80 mg p.o. daily Farxiga 10 mg p.o. daily Ranexa 500 mg p.o. twice a day Continue Spiriva and Flovent Complete the prednisone burst taper on outpatient basis Likely discharge home to be followed up on outpatient basis
--- NOTE | 2024-06-21 22:05 | P.DS ---
Providers Date of admission: 06/11/24 14:21 Expected date of discharge: 06/21/24 Attending physician: Patrice Ambrose Consults: 06/11/24 18:31 Consult Physician Routine Consulting Provider: Magdiel Porras Consult Reason/Comments: SOB Do you want consulting provider notified?: Yes 06/11/24 19:16 Consult Physician Routine Consulting Provider: Chao Case Consult Reason/Comments: Heart cath Do you want consulting provider notified?: Yes 06/13/24 14:03 Consult Physician Routine Consulting Provider: [facility] Consult Reason/Comments: Post Interventional patient Do you want consulting provider notified?: Already Contacted 06/18/24 12:07 Consult Physician Routine Consulting Provider: [facility] Consult Reason/Comments: Post Interventional patient Do you want consulting provider notified?: Already Contacted Primary care physician: Eufemia Zapata Hospital Course: I am rounding for Dr. Patrice Ambrose. June 14, 2024: Multiple medical issues. Sitting at edge of bed. Eating supper. Decreased cough. Eating fair. Decreased shortness of breath. Nasal cannula. June 15, 2024: Resting bed. No chest pain. Breathing stable. Patient informed me that he will have further intervention by Dr. Lagos on Monday. Has been in sinus rhythm. June 162024. Up to the bathroom. No chest pain. Breathing remained stable. Dr. Case/cardiology arranging for Dr. Lagos to do the redo intervention tomorrow. Blood pressure running on the lower side. Decrease Coreg to 18 twice daily. Also heart rate down to low 50s. June 17: Resting in bed. Has been up to the bathroom. Supposed to have a cardiac cath today now rescheduled for tomorrow. No chest pain. Breathing stable. Very slight cough. Because of low blood pressure decrease heart rate cardiology further decrease the Coreg. 6.25 twice daily. June 18: Patient taken to the [facility] today by Dr. Lagos. It was a rather lengthy process. Patient at least had 3 stents placed in RCA. Including angioplasty. More details in Dr. Lagos's notes. Subsequently patient became bradycardic and hypotensive. Postprocedure admitted to the ICU. On dopamine. 5 mcg an hour. On nasal cannula 4 L. Postprocedure no chest pain June 19: ICU. TVP set at 50. Patient heart rate hovering around 60 currently. Dopamine down to 2.5 mics. Tolerating diet. 4 L nasal cannula. Occasional cough. Platelets 92. Keep a close eye June 20: ICU. Patient is transvenous pacemaker disconnected. Patient is also off dopamine. Did walk a bit. No chest pain. Eating some. June 21: Doing well. Up and about.Patient was seen by and cleared by cardiology. Patient had 1 episode of A-fib during hospitalization. Per cardiology to hold off anticoagulation. Also cleared by pulmonary for discharge. On examination: VITAL SIGNS: 97.5, 60, 16, 125 x 68, 95% room air GENERAL APPEARANCE: Sitting up, comfortable HEENT: Normal external appearance of nose and ear. Oral cavity normal EYES: Pupils equal. Conjunctiva normal. NECK: JVD not raised. Mass not palpable. RESPIRATORY: Respiratory effort normal, diminished breath sounds CARDIOVASCULAR: First and second sounds normal. No edema. ABDOMEN: Soft. Liver and spleen not palpable. No tenderness. No mass palpable. PSYCHIATRY: Alert and oriented x3. Mood and affect normal. INVESTIGATIONS, reviewed in the clinical context: June 21: Potassium 4.1 creatinine 0.85 June 20: White count 6.2 hemoglobin 13.7 platelets 75 potassium 3.9 creatinine 0.74 June 19: White count 7.8 hemoglobin 13.6 platelets 92 potassium 4 creatinine 0.75 June 16: Sodium 139 potassium 3.8 creatinine 0.85 June 14: Sodium 139 potassium 3.2 creatinine 0.77 SARS-CoV-2: Detected Assessment plan: -Postprocedure hypotension with bradycardia.: Better Patient had a transvenous pacemaker and IV dopamine. -Paroxysmal atrial fibrillation rapid ventricular rate, on presentation. Now in sinus rhythm Hold off anticoagulation for now. - angioplasty of distal left main June 13. With further disease in RCA Plan for staged RCA intervention rescheduled for tomorrow with Dr. Lagos June 18: Redo of the RCA with at least 3/10. More details in Dr. Lagos's notes. -Acute exacerbation of systolic congestive heart failure, EF 30-35%: improved Bumex 0.5 mg a day. -COVID-19, stable -PAD status post femorofemoral bypass left right. Aspirin. Lipitor. -Acute COPD exacerbation, and a cigarette smoker: Stable Inhalers -Acute hypoxic respiratory failure from above, present initially then improved. FiO2 being dialed down -Chronic nicotine dependence cigarette smoker Nicotine patch -CAD with a prior history of coronary bypass in 2012, redo in 2017 Aspirin. Lipitor. Farxiga -Hyperlipidemia Lipitor -Essential hypertension -Renal cell carcinoma with history of cryosurgery in 2007 -Full code Disposition: Home Plan - Discharge Summary Discharge Rx Participant: No New Discharge Prescriptions: New Bumetanide [BUMEX] 0.5 mg PO DAILY #30 tab Aspirin 81 mg PO DAILY tab Ticagrelor [Brilinta] 90 mg PO BID #60 tab Nicotine 21Mg/24Hr Patch [Habitrol] 1 patch TRANSDERM DAILY #30 patch Continue Rosuvastatin Calcium [Crestor] 40 mg PO DAILY Spironolactone [Aldactone] 25 mg PO DAILY #30 tab Isosorbide Mononitrate ER [Imdur] 60 mg PO DAILY #60 tab Nitroglycerin Sl Tabs [Nitrostat] 0.4 mg SUBLINGUAL Q5M PRN #30 tab PRN Reason: Chest Pain Ranolazine [Ranexa] 500 mg PO Q12HR #60 tab Sacubitril/Valsartan [Entresto 24 mg-26 mg Tablet] 1 tab PO BID carvediloL [Coreg] 12.5 mg PO BID Empagliflozin [Jardiance] 10 mg PO DAILY Mometasone Furoate [Asmanex 200 MCG Hfa] 1 puff INHALATION RT-BID Albuterol Inhaler [Ventolin Hfa Inhaler] 2 puff INHALATION RT-QID PRN PRN Reason: Shortness Of Breath Discontinued Clopidogrel [Plavix] 75 mg PO DAILY Discharge Medication List Rosuvastatin Calcium [Crestor] 40 mg PO DAILY 03/28/20 [History] carvediloL [Coreg] 12.5 mg PO BID 08/30/23 [History] Isosorbide Mononitrate ER [Imdur] 60 mg PO DAILY #60 tab 09/04/23 [Rx] Nitroglycerin Sl Tabs [Nitrostat] 0.4 mg SUBLINGUAL Q5M PRN #30 tab 09/04/23 [Rx] Ranolazine [Ranexa] 500 mg PO Q12HR #60 tab 09/04/23 [Rx] Spironolactone [Aldactone] 25 mg PO DAILY #30 tab 09/04/23 [Rx] Albuterol Inhaler [Ventolin Hfa Inhaler] 2 puff INHALATION RT-QID PRN 06/11/24 [History] Empagliflozin [Jardiance] 10 mg PO DAILY 06/11/24 [History] Mometasone Furoate [Asmanex 200 MCG Hfa] 1 puff INHALATION RT-BID 06/11/24 [History] Sacubitril/Valsartan [Entresto 24 mg-26 mg Tablet] 1 tab PO BID 06/11/24 [History] Aspirin 81 mg PO DAILY tab 06/21/24 [Rx] Bumetanide [BUMEX] 0.5 mg PO DAILY #30 tab 06/21/24 [Rx] Nicotine 21Mg/24Hr Patch [Habitrol] 1 patch TRANSDERM DAILY #30 patch 06/21/24 [Rx] Ticagrelor [Brilinta] 90 mg PO BID #60 tab 06/21/24 [Rx] Follow up Appointment(s)/Referral(s): corinne bo [Other] - 1 Week (Please ensure office is aware this is an appointment following a hospital stay.) Harsh Lagos MD [STAFF PHYSICIAN] - 1 Week (Office to call with appointment date and time.) Patient Instructions/Handouts: *[facility] - After Heart Catheterization - Developer Relations Manager Instructions Activity/Diet/Wound Care/Special Instructions: [facility] Continue aspirin, brilinta, and eliquis for ONE week. After that, discontinue aspirin and continue with Brilinta and Eliquis. Discharge Disposition: HOME SELF-CARE
--- NOTE | 2024-06-26 11:23 | CDI ---
Documentation Clarification Form Date: 06/26/2024 From: Satya Chahal Admit Date: 06/11/2024 02:21:00 PM Patient Name: Ke Bee Visit Number: [id number] Discharge Date: 06/21/2024 02:29:00 PM ATTENTION: The Clinical Documentation Specialists (CDI) and [facility] Coding Staff appreciate your assistance in clarifying documentation. Please respond to the clarification below the line at the bottom and electronically sign. The CDI & [facility] Coding staff will review the response and follow-up if needed. Please note: Queries are made part of the Legal Health Record. If you have any questions, please contact the author of this message via ITS. Doctor/Provider: Harsh Lagos MD Postprocedure hypotension with bradycardia is documented in the 06/18 Dr. Bridges progress note and the patient had a Percutaneous Coronary Intervention performed on 06/18. Additional clarification is requested regarding the relationship, if any, that exists between the diagnoses and the procedure. History/Risk Factors: 68-year-old white male with past medical history significant for COPD, chronic ongoing tobacco dependence, coronary artery disease with previous CABG and redo, left hemidiaphragm paralysis status/post plication, hypertension, hyperlipidemia, CVA/TIA, carotid artery stenosis status/post bilateral carotid endarterectomy who presents today for a heart catheterization. Indication for procedure: Critical disease involving the RCA Procedure performed: Successful stenting of the distal and middle and proximal extremely calcified and tortuous RCA with an excellent angiographic results and reduction of stenosis from 9 9% to 0%. Clinical Indicators: 06/18 Dr. Mayes note: Following the procedure, the patient encountered bradycardia. He also encountered hypotension. Blood pressure medication have been discontinued in addition to any AV yordan blockers. The patient was started on dopamine and he was given a TVP with a backup rate of 60. The patient is currently hemodynamically stable. Free of any chest pain. He remains on aspirin. He remains on Brilinta. Beta-blockers have been discontinued. 06/18 Dr. Bridges note: Postprocedure hypotension with bradycardia. IV dopamine at 5 mcg an hour 06/20 Dr. Justin note: Status post stenting of the RCA with atherectomy and need of temporary pacemaker, stable: He continues to be on low-dose dopamine and has a temporary pacemaker set at 60 with occasional pacing He is in sinus mechanism. 06/21 Dr. Justin note: NSTEMI status post PCI to left main to ramus and stenting of the RCA with atherectomy and need of temporary pacemaker, stable: He is off IV dopamine and his blood pressure is stable. He has very rare use of his temporary pacemaker. He continues to be in sinus mechanism with occasional PACs. 06/21 Discharge Summary: Postprocedure hypotension with bradycardia.: Better: June 18: Patient taken to the [facility] today by Dr. Lagos. It was a rather lengthy process. Patient at least had 3 stents placed in RCA. Including angioplasty. More details in Dr. Lagos's notes. Subsequently patient became bradycardic and hypotensive. Postprocedure admitted to the ICU. On dopamine. 5 mcg an hour. June 19: ICU. TVP set at 50. Patient heart rate hovering around 60 currently. Dopamine down to 2.5 mics. June 20: ICU. Patient is transvenous pacemaker disconnected. Patient is also off dopamine. Treatment: IV Dopamine, Temporary pacemaker, Held betablockers. What relationship, if any, exists between the diagnoses of Postprocedure hypotension with bradycardia and the procedure: [ x] Postprocedure hypotension with bradycardia is clinically significant and is not a complication of the procedure [ ] Postprocedure hypotension with bradycardia is clinically significant and is a complication of the procedure [ ] Postprocedure hypotension with bradycardia is clinically significant, is not a complication of the procedure, and is due to [ ] Other please specify ____ (Template Last Revised: May 2024) MTDD
== END 2024-06-21 14:29 | disposition home or self-care (01) | DRG 323 ==
LOC: 3SCARD 14:21 → 2SICU 06-18 12:23 → 3SCARD 06-20 16:29
PROVIDERS: ADMIT Family Medicine; ATTEND Family Medicine
PROC: B240ZZ3 Ultrasonography of Single Coronary Artery, Intravascular (ICD-10-PCS; 2024-06-13)
PROC: 4A023N7 Measurement of Cardiac Sampling and Pressure, Left Heart, Percutaneous Approach (ICD-10-PCS; 2024-06-13)
PROC: B2111ZZ Fluoroscopy of Multiple Coronary Arteries using Low Osmolar Contrast (ICD-10-PCS; 2024-06-13)
PROC: 4A023N7 Measurement of Cardiac Sampling and Pressure, Left Heart, Percutaneous Approach (ICD-10-PCS; 2024-06-13)
PROC: B2131ZZ Fluoroscopy of Multiple Coronary Artery Bypass Grafts using Low Osmolar Contrast (ICD-10-PCS; 2024-06-13)
PROC: 027034Z Dilation of Coronary Artery, One Artery with Drug-eluting Intraluminal Device, Percutaneous Approach (ICD-10-PCS; principal; 2024-06-13 07:30)
PROC: 02F03ZZ Fragmentation in Coronary Artery, One Artery, Percutaneous Approach (ICD-10-PCS; 2024-06-13 07:30)
PROC: 027034Z Dilation of Coronary Artery, One Artery with Drug-eluting Intraluminal Device, Percutaneous Approach (ICD-10-PCS; 2024-06-18)
PROC: 02C03Z7 Extirpation of Matter from Coronary Artery, One Artery, Orbital Atherectomy Technique, Percutaneous Approach (ICD-10-PCS; 2024-06-18)
PROC: B240ZZ3 Ultrasonography of Single Coronary Artery, Intravascular (ICD-10-PCS; 2024-06-18)
PROC: 3E033XZ Introduction of Vasopressor into Peripheral Vein, Percutaneous Approach (ICD-10-PCS; 2024-06-18)
DX: I21.4 Non-ST elevation (NSTEMI) myocardial infarction (principal); I50.23 Acute on chronic systolic (congestive) heart failure; J96.01 Acute respiratory failure with hypoxia; Z66 Do not resuscitate; J44.1 Chronic obstructive pulmonary disease with (acute) exacerbation; I11.0 Hypertensive heart disease with heart failure; I73.9 Peripheral vascular disease, unspecified; E66.9 Obesity, unspecified; I25.810 Atherosclerosis of coronary artery bypass graft(s) without angina pectoris; I48.0 Paroxysmal atrial fibrillation; I95.9 Hypotension, unspecified; R00.1 Bradycardia, unspecified; E78.5 Hyperlipidemia, unspecified; I25.10 Atherosclerotic heart disease of native coronary artery without angina pectoris; I25.5 Ischemic cardiomyopathy; F17.210 Nicotine dependence, cigarettes, uncomplicated; R91.1 Solitary pulmonary nodule; Z79.02 Long term (current) use of antithrombotics/antiplatelets; Z95.820 Peripheral vascular angioplasty status with implants and grafts; Z79.84 Long term (current) use of oral hypoglycemic drugs; Z79.51 Long term (current) use of inhaled steroids; Z68.28 Body mass index [BMI] 28.0-28.9, adult; I25.2 Old myocardial infarction; Z85.528 Personal history of other malignant neoplasm of kidney; Z86.73 Personal history of transient ischemic attack (TIA), and cerebral infarction without residual deficits; Z86.16 Personal history of COVID-19; Z79.899 Other long term (current) drug therapy
CPT/HCPCS: 71045; 71046; 71250; 80048; 80053; 83735; 84145; 85025; 85027; 85610; 85730; 87636; 92972; 92978; 93308; 93459; 94640; 94760

== ENCOUNTER 2024-07-04 12:21 | Inpatient (IN) | payer MEDICARE ==
--- NOTE | 2024-07-04 12:57 | ED ---
General Adult HPI - General Chief complaint: Chest Pain Stated complaint: Chest pain,cough Time Seen by Provider: 07/04/24 12:30 Source: patient Mode of arrival: ambulatory Limitations: no limitations - History of Present Illness Initial comments: Dictation was produced using [employer] dictation software. please excuse any grammatical, word or spelling errors. Chief Complaint: 69-year-old male with chest pain History of Present Illness: Patient 69-year-old male with extensive coronary artery history. Presents to the ER today for chest pain. States that it is a pressure in his chest that feels like his previous heart attacks. He has had multiple stents placed last month. He has recovered from multiple bypass grafting. Patient states the pain is not rating not associated diaphoresis or nausea. The ROS documented in this emergency department record has been reviewed and confirmed by me. Those systems with pertinent positive or negative responses have been documented in the HPI. All other systems are other negative and/or noncontributory. - Related Data Home Medications Medication Instructions Recorded Confirmed Rosuvastatin Calcium [Crestor] 40 mg PO DAILY 03/28/20 07/04/24 carvediloL [Coreg] 12.5 mg PO BID 08/30/23 07/04/24 Empagliflozin [Jardiance] 10 mg PO DAILY 06/11/24 07/04/24 Sacubitril/Valsartan [Entresto 24 1 tab PO BID 06/11/24 07/04/24 mg-26 mg Tablet] Clopidogrel [Plavix] 75 mg PO DAILY 07/04/24 07/04/24 Fluticasone Nasal [place] [Flonase 1 spray EA NOSTRIL DAILY 07/04/24 07/04/24 Nasal [place]] Previous Rx's Medication Instructions Recorded Isosorbide Mononitrate ER [Imdur] 60 mg PO DAILY #60 tab 09/04/23 Nitroglycerin Sl Tabs [Nitrostat] 0.4 mg SUBLINGUAL Q5M PRN #30 tab 09/04/23 Ranolazine [Ranexa] 500 mg PO Q12HR #60 tab 09/04/23 Spironolactone [Aldactone] 25 mg PO DAILY #30 tab 09/04/23 Allergies Allergy/AdvReac Type Severity Reaction Status Date / Time amlodipine [From [facility]] Allergy per Verified 07/04/24 13:14 [facility] enalaprilat [From Vasotec] Allergy per Verified 07/04/24 13:14 [facility] isosorbide [From Imdur] Allergy per Verified 07/04/24 13:14 [facility], taking at home Review of Systems ROS Statement: Those systems with pertinent positive or pertinent negative responses have been documented in the HPI. ROS Other: All systems not noted in ROS Statement are negative. Past Medical History Past Medical History: Cancer, Chest Pain / Angina, COPD, CVA/TIA, Hyperlipidemia, Hypertension, Myocardial Infarction (VT), Osteoarthritis (OA) Additional Past Medical History / Comment(s): generalized fatigue, unable to walk distance,SOB, CVA-several yrs. ago-post carotid endarterectomy-no residual effects; Right kidney cancer Last Myocardial Infarction Date:: 2012 History of Any Multi-Drug Resistant Organisms: None Reported Past Surgical History: Coronary Bypass/CABG, Heart Catheterization, Heart Catheterization With Stent Additional Past Surgical History / Comment(s): earlene. carotid endarterectomy, triple bypass 2012, diaphragm repair post CABG, fem-fem. bypass, Cryoablation of right renal tumor- approximately 2009 at [facility], Heart cath with stent x5 06/2024 Past Anesthesia/Blood Transfusion Reactions: No Reported Reaction Past Psychological History: Anxiety, Bipolar Smoking Status: Current every day smoker Past Alcohol Use History: Occasional Past Drug Use History: None Reported - Past Family History Mother History Unknown: Yes Family Medical History: Cancer General Exam - General Exam Comments Initial Comments: PHYSICAL EXAM: General Impression: Alert and oriented x3, not in acute distress HEENT: Normocephalic atraumatic, extra-ocular movements intact, pupils equal and reactive to light bilaterally, mucous membranes moist. Cardiovascular: Heart regular rate and rhythm Chest: Able to complete full sentences, no retractions, no tachypnea Abdomen: abdomen soft, non-tender, non-distended, no organomegaly Musculoskeletal: Pulses present and equal in all extremities, no peripheral edema Motor: no focal deficits noted Neurological: CN II-XII grossly intact, no focal motor or sensory deficits noted Skin: Intact with no visualized rashes Psych: Normal affect and mood Limitations: no limitations Course Vital Signs 07/04/24 12:23 Pulse Rate 81 Respiratory 18 Rate Blood Pressure 105/66 O2 Sat by Pulse 86 L Oximetry EKG Findings - EKG Comments: EKG Findings:: My EKG interpretation: Ventricular rate 90, sinus rhythm,. 158, QRS 109, QTc 4 9. No OR prolongation, no QTC prolongation, no ST or T-wave jacques nges noted. EKG compared to June 24, 2024 showing no changes. Overall, this EKG is unremarkable Medical Decision Making - Medical Decision Making Was pt. sent in by a medical professional or institution (, PA, BARGE CAPTAIN, urgent care, hospital, or [facility]...) When possible be specific @ -No Did you speak to anyone other than the patient for history (EMS, parent, family, police, friend...)? What history was obtained from this source @ -No Did you review nursing and triage notes (agree or disagree)? Why? @ -I reviewed and agree with nursing and triage notes Were old charts reviewed (outside hosp., previous admission, EMS record, old EKG, old radiological studies, urgent care reports/EKG's, ch[facility] records)? Report findings @ -No old charts were reviewed Differential Diagnosis (chest pain, altered mental status, abdominal pain women, abdominal pain men, vaginal bleeding, musculoskeletal, weakness, fever, dyspnea, syncope, headache, dizziness, GI bleed, back pain, seizure, CVA, palpatations, mental health)? @ -Differential Chest Pain: Stable Angina, Unstable Angina, STEMI, NSTEMI Aortic Dissection, Pneumothorax, Musculoskeletal, Esophageal Spasm GERD, Cholecystitis, Pancreatitis, Zoster, this is not meant to be an all-inclusive list. EKG interpreted by me (3pts min.). @ -See above. Serial EKG shows no dynamic changes X-rays interpreted by me (1pt min.). @ -Chest x-ray is nonacute CT interpreted by me (1pt min.). @ -None done U/S interpreted by me (1pt. min.). @ -None done What testing was considered but not performed or refused? (CT, X-rays, U/S, labs)? Why? @ -None What meds were considered but not given or refused? Why? @ -None Was smoking cessation discussed for >3mins.? @ -No Were there social determinants of health that impacted care today? How? (Homelessness, low income, unemployed, alcoholism, drug addiction, transportation, low edu. Level, literacy, decrease access to med. care, skilled nursing, rehab)? @ -No Was there de-escalation of care discussed even if they declined (Discuss DNR or withdrawal of care, Hospice)? DNR status @ -No What co-morbidities impacted this encounter? (DM, HTN, Smoking, COPD, CAD, Cancer, CVA, ARF, Chemo, Hep., AIDS, mental health diagnosis, sleep apnea, mor bid obesity)? @ -Coronary artery disease Was patient admitted / discharged? Hospital course, mention meds given and route, prescriptions, significant lab abnormalities, going to OR and other pertinent info. @ -69-year-old male with extensive coronary artery history presents to the ER for chest pain, cough and shortness of breath. Vital signs shows 86% on room air. Patient well-appearing no acute distress. EKG appears to be benign. Serial EKG shows no dynamic changes. Laboratory evaluation obtained. No leukocytosis. Coag panel metabolic panel within acceptable limits. Troponin 0.026. Viral testing is positive for RSV and COVID-19. Patient given aspirin will be admitted for hypoxia and chest pain. Cardiology and pulmonology consulted. Case discussed with hospitalist for admission Did you discuss the management of the patient with other professionals (professionals i.e. , PA, BARGE CAPTAIN, lab, RT, psych nurse, social studies department chair, military lawyer, teacher, unarmed security officer, case loader operator)? Give summary @ -See above Was critical care preformed (if so, how long)? @ -No Undiagnosed new problem with uncertain prognosis? @ -No Drug Therapy requiring intensive monitoring for toxicity (Heparin, Nitro, Insulin, Cardizem)? @ -No Were any procedures done? @ -No Diagnosis/symptom? Acute, or Chronic, or Acute on Chronic? Uncomplicated (without systemic symptoms) or Complicated (systemic symptoms)? @ -Chest pain, viral pulmonary infection, hypoxia Side effects of treatment? @ -No Exacerbation, Progression, or Severe Exacerbation? @ -No Poses a threat to life or bodily function? How? (Chest pain, USA, VT, pneumonia, PE, COPD, DKA, ARF, appy, cholecystitis, CVA, Diverticulitis, Homicidal, Suicidal, threat to staff... and all critical care pts) @ -yes - Lab Data Result diagrams: 07/04/24 12:55 07/04/24 12:55 Lab Results 07/04/24 07/04/24 07/04/24 Range/Units 12:45 12:55 12:55 WBC 4.8 (3.8-10.6) k/uL RBC 4.42 (4.30-5.90) m/uL Hgb 13.4 (13.0-17.5) gm/dL Hct 41.4 (39.0-53.0) % MCV 93.6 (80.0-100.0) fL MCH 30.4 (25.0-35.0) pg MCHC 32.4 (31.0-37.0) g/dL RDW 15.9 H (11.5-15.5) % Plt Count 176 D (150-450) k/uL MPV 7.8 Neutrophils % 74 % Lymphocytes % 16 % Monocytes % 6 % Eosinophils % 1 % Basophils % 0 % Neutrophils # 3.5 (1.3-7.7) k/uL Lymphocytes # 0.8 L (1.0-4.8) k/uL Monocytes # 0.3 (0-1.0) k/uL Eosinophils # 0.0 (0-0.7) k/uL Basophils # 0.0 (0-0.2) k/uL Hypochromasia Slight Poikilocytosis Slight PT 10.9 (10.0-12.5) sec INR 1.0 (<1.2) APTT 22.7 (22.0-30.0) sec Sodium (137-145) mmol/L Potassium (3.5-5.1) mmol/L Chloride (98-107) mmol/L Carbon Dioxide (22-30) mmol/L Anion Gap mmol/L BUN (9-20) mg/dL Creatinine (0.66-1.25) mg/dL Est GFR (CKD-EPI)AfAm (>60 ml/min/1.73 sqM) Est GFR (CKD-EPI)NonAf (>60 ml/min/1.73 sqM) Glucose (74-99) mg/dL Calcium (8.4-10.2) mg/dL Magnesium (1.6-2.3) mg/dL Total Bilirubin (0.2-1.3) mg/dL AST (17-59) U/L ALT (4-49) U/L Alkaline Phosphatase (38-126) U/L Troponin I (0.000-0.034) ng/mL Total Protein (6.3-8.2) g/dL Albumin (3.5-5.0) g/dL Influenza Type A (PCR) Not Detected (Not Detectd) Influenza Type B (PCR) Not Detected (Not Detectd) RSV (PCR) Detected A (Not Detectd) SARS-CoV-2 (PCR) Detected A (Not Detectd) 07/04/24 07/04/24 Range/Units 12:55 12:55 WBC (3.8-10.6) k/uL RBC (4.30-5.90) m/uL Hgb (13.0-17.5) gm/dL Hct (39.0-53.0) % MCV (80.0-100.0) fL MCH (25.0-35.0) pg MCHC (31.0-37.0) g/dL RDW (11.5-15.5) % Plt Count (150-450) k/uL MPV Neutrophils % % Lymphocytes % % Monocytes % % Eosinophils % % Basophils % % Neutrophils # (1.3-7.7) k/uL Lymphocytes # (1.0-4.8) k/uL Monocytes # (0-1.0) k/uL Eosinophils # (0-0.7) k/uL Basophils # (0-0.2) k/uL Hypochromasia Poikilocytosis PT (10.0-12.5) sec INR (<1.2) APTT (22.0-30.0) sec Sodium 137 (137-145) mmol/L Potassium 4.6 (3.5-5.1) mmol/L Chloride 100 (98-107) mmol/L Carbon Dioxide 22 (22-30) mmol/L Anion Gap 15 mmol/L BUN 20 (9-20) mg/dL Creatinine 0.79 (0.66-1.25) mg/dL Est GFR (CKD-EPI)AfAm >90 (>60 ml/min/1.73 sqM) Est GFR (CKD-EPI)NonAf >90 (>60 ml/min/1.73 sqM) Glucose 108 H (74-99) mg/dL Calcium 8.5 (8.4-10.2) mg/dL Magnesium 2.0 (1.6-2.3) mg/dL Total Bilirubin 1.9 H (0.2-1.3) mg/dL AST 25 (17-59) U/L ALT 21 (4-49) U/L Alkaline Phosphatase 71 (38-126) U/L Troponin I 0.026 (0.000-0.034) ng/mL Total Protein 6.9 (6.3-8.2) g/dL Albumin 4.3 (3.5-5.0) g/dL Influenza Type A (PCR) (Not Detectd) Influenza Type B (PCR) (Not Detectd) RSV (PCR) (Not Detectd) SARS-CoV-2 (PCR) (Not Detectd) Disposition Clinical Impression: Hypoxia, Chest pain Disposition: ADMITTED IP TO THIS HOSP Condition: Fair Referrals: Izaiah Mera DO [Primary Care Provider] - 1-2 days Decision Time: 14:11
[2024-07-04] MEDS: ASPIRIN 81 MG PO STA (12:58)
[2024-07-04 13:06] LABS: Basophils % (A) 0 %; Eosinophils % (A) 1 %; HCT 41.4 % (39.0-53.0); HGB 13.4 gm/dL (13.0-17.5); Hypochromasia Slight; Lymphocytes # (A) 0.8 k/uL (1.0-4.8); Lymphocytes % (A) 16 %; MCH 30.4 pg (25.0-35.0); MCHC 32.4 g/dL (31.0-37.0); MCV 93.6 fL (80.0-100.0); Mean Platelet Volume 7.8; Monocytes # (A) 0.3 k/uL (0-1.0); Monocytes % (A) 6 %; Neutrophils # (A) 3.5 k/uL (1.3-7.7); Neutrophils % (A) 74 %; Poikilocytosis Slight; RBC 4.42 m/uL (4.30-5.90); RDW 15.9 % (11.5-15.5); WBC 4.8 k/uL (3.8-10.6)
[2024-07-04 13:21] LABS: Partial Thromboplastin Time 22.7 sec (22.0-30.0); Platelet Count 176 k/uL (150-450); Potassium 4.6 mmol/L (3.5-5.1); Prothrombin Time 10.9 sec (10.0-12.5)
--- NOTE | 2024-07-04 13:22 | XR ---
EXAMINATION TYPE: XR chest 2V DATE OF EXAM: 07/04/2024 1:18 PM COMPARISON: Multiple radiographs, with the most recent on 06/19/2024. TECHNIQUE: XR chest 2V Frontal and lateral views of the chest. CLINICAL INDICATION:Male, 69 years old with history of Chest Pain; FINDINGS: Lungs/Pleura: There is flattening of the diaphragm with increased lucency of the lungs. No evidence o f pneumothorax, pleural effusion or focal consolidation. Chronic senescent parenchymal change. Pulmonary vascularity: Unremarkable. Heart/mediastinum: Cardiomediastinal silhouette is enlarged and stable. Atherosclerotic calcificatio ns are seen in the aorta. Post-CABG changes. Musculoskeletal: Multiple level degenerative disc disease changes seen throughout the spine. Midline sternotomy wires are noted and stable. IMPRESSION: 1. No acute cardiopulmonary disease process. 2. COPD changes. 3. Cardiomegaly with post-CABG changes. [facility], , 07/04/2024 1:20 PM
[2024-07-04 13:42] LABS: Influenza A Not Detected (Not Detectd); Influenza B Not Detected (Not Detectd); RSV Detected (Not Detectd)
[2024-07-04 14:04] LABS: ALT 21 U/L (4-49); AST 25 U/L (17-59); African American GFR (CKD) >90 (>60 ml/min/1.73 sqM); Albumin 4.3 g/dL (3.5-5.0); Alkaline Phosphatase 71 U/L (38-126); Anion Gap 15 mmol/L; Blood Urea Nitrogen 20 mg/dL (9-20); Calcium 8.5 mg/dL (8.4-10.2); Carbon Dioxide 22 mmol/L (22-30); Chloride 100 mmol/L (98-107); Glucose 108 mg/dL (74-99); Non-African American GFR(CKD) >90 (>60 ml/min/1.73 sqM); Sodium 137 mmol/L (137-145); Total Bilirubin 1.9 mg/dL (0.2-1.3); Total Protein 6.9 g/dL (6.3-8.2)
[2024-07-04] MEDS ORDERED: NITROGLYCERIN SL TABS 0.4 MG TAB SUBLINGUAL PRN ×2 (14:07→15:33)
[2024-07-04] MEDS ORDERED: ALBUTEROL NEBULIZED 2.5 MG/3 ML INHALATION PRN (15:31)
[2024-07-04] MEDS ORDERED: ACETAMINOPHEN TAB 325 MG TAB PO PRN (15:31)
[2024-07-04] MEDS ORDERED: ALBUTEROL HFA INHALER INHALATION PRN (17:07)
--- NOTE | 2024-07-04 17:10 | P.HPIM ---
History of Present Illness H&P Date: 07/04/24 Chief Complaint: dyspnea 69-year-old male with medical history of CAD status post CABG and status post PCI to the RCA approximately 2 and half weeks ago when she had 5 stents for difficult procedure, hypertension, hyperlipidemia, former smoker who presented for evaluation of dyspnea, congestion. Patient says that he has been doing okay after discharge but about 1-1/2 days ago he had a follow-up appointment with cardiology but noticed that he was too short of breath to follow-up. Since that time he is got progressively short of breath with increased congestion. He de nies fevers, chills, nausea, vomiting. He denies sick contacts. He reports being up-to-date on COVID vaccination, does not recall if he had a RSV vaccination. He denies abdominal pain, loss of appetite, constipation, diarrhea, dysuria, dyschezia, numbness/weakness of extremities. In the emergency room, patient was afebrile, 105/66, heart rate 81, 86% on room air. CBC was unremarkable. Basic metabolic panel is unremarkable. Liver function test show mildly elevated total bilirubin of 1.9. Influenza A, B were negative. RSV, COVID were positive. Initial troponin is 0.026 then trended to 0.017 after 3 hours. Coags were unremarkable. EKG shows sinus rhythm with right axis deviation, poor R wave progression, right bundle branch morphology. Chest x-ray showed no acute cardiopulmonary process, does show COPD changes, cardiomegaly with post CABG changes. Case was discussed with emergency room provider and decision was made admit the patient to the hospital for further evaluation of hypoxemic respiratory failure secondary to COVID and RSV pneumonia. All Systems reviewed and pertinent positives and negatives noted in HPI, all other symptoms are negative Gen: In NAD, non-toxic HEENT: normocephalic, atraumatic, hearing acuity is intant, mucous membranes moist CVS: perfusing all extremities well, no pitting edema, Respiratory: symmetric chest expansion, no accessory muscle use, diffuse wheezing GI: soft, NTTP, ND, : no suprapubic tenderness, no CVA tenderness MSK/Derm: no rashes, cyanosis Neuro: CN II-XII intact, no motor weakness, Psych: cooperative, euthymic mood, judgment and insight is intact Labs and imaging as above Assessment/plan: Acute hypoxemic respiratory failure RSV and COVID-19 pneumonia Acute COPD exacerbation -Admit patient as an inpatient with telemetry -Dexamethasone 6 mg IV daily -Pulmonology consult -Albuterol 2 puffs 4 times daily as needed as well as scheduled -Antibiotics deferred at this time, procalcitonin pending -Inflammatory labs daily: D-dimer, ferritin, fibrinogen, LDH CAD status post CABG/PCI Heart failure with reduced ejection fraction, EF 35% -Continue aspirin, Plavix -Cardiology consulted -Telemetry as above Hypertension Hyperlipidemia -Home medications reviewed and reconciled DVT prophylaxis with enoxaparin Patient is DNR/DNI Past Medical History Past Medical History: Cancer, Chest Pain / Angina, COPD, CVA/TIA, Hyperlipidemia, Hypertension, Myocardial Infarction ([place]), Osteoarthritis ([place]) Additional Past Medical History / Comment(s): generalized fatigue, unable to walk distance,SOB, CVA-several yrs. ago-post carotid endarterectomy-no residual effects; Right kidney cancer Last Myocardial Infarction Date:: 2012 History of Any Multi-Drug Resistant Organisms: None Reported Past Surgical History: Coronary Bypass/CABG, Heart Catheterization, Heart Catheterization With Stent Additional Past Surgical History / Comment(s): earlene. carotid endarterectomy, triple bypass 2012, diaphragm repair post CABG, fem-fem. bypass, Cryoablation of right renal tumor- approximately 2009 at [facility], Heart cath with stent x5 06/2024 Past Anesthesia/Blood Transfusion Reactions: No Reported Reaction Past Psychological History: Anxiety, Bipolar Smoking Status: Current every day smoker Past Alcohol Use History: Occasional Past Drug Use History: None Reported - Past Family History Mother History Unknown: Yes Family Medical History: Cancer Medications and Allergies Home Medications Medication Instructions Recorded Confirmed Type Rosuvastatin Calcium [Crestor] 40 mg PO DAILY 03/28/20 07/04/24 History carvediloL [Coreg] 12.5 mg PO BID 08/30/23 07/04/24 History Isosorbide Mononitrate ER [Imdur] 60 mg PO DAILY #60 tab 09/04/23 07/04/24 Rx Nitroglycerin Sl Tabs [Nitrostat] 0.4 mg SUBLINGUAL Q5M PRN #30 tab 09/04/23 07/04/24 Rx Ranolazine [Ranexa] 500 mg PO Q12HR #60 tab 09/04/23 07/04/24 Rx Spironolactone [Aldactone] 25 mg PO DAILY #30 tab 09/04/23 07/04/24 Rx Empagliflozin [Jardiance] 10 mg PO DAILY 06/11/24 07/04/24 History Sacubitril/Valsartan [Entresto 24 1 tab PO BID 06/11/24 07/04/24 History mg-26 mg Tablet] Clopidogrel [Plavix] 75 mg PO DAILY 07/04/24 07/04/24 History Fluticasone Nasal [place] [Flonase 1 spray EA NOSTRIL DAILY 07/04/24 07/04/24 History Nasal [place]] Allergies Allergy/AdvReac Type Severity Reaction Status Date / Time amlodipine [From Norvasc] Allergy per Verified 07/04/24 13:14 [facility] enalaprilat [From Vasotec] Allergy per Verified 07/04/24 13:14 [facility] isosorbide [From Imdur] Allergy per Verified 07/04/24 13:14 [facility], taking at home Physical Exam Osteopathic Statement: *. No significant issues noted on an osteopathic structural exam other than those noted in the History and Physical/Consult. Vitals: Vital Signs Temp Pulse Resp BP Pulse Ox 07/04/24 14:27 98.9 F 90 18 94 L 07/04/24 14:19 83 20 103/64 91 L 07/04/24 12:23 81 18 105/66 86 L Intake and Output 07/04/24 07/04/24 07/04/24 06:59 14:59 22:59 Other: Weight 90.718 kg Results CBC & Chem 7: 07/04/24 12:55 07/04/24 12:55 Labs: Abnormal Lab Results - Last 24 Hours (Table) 07/04/24 07/04/24 07/04/24 Range/Units 12:45 12:55 12:55 RDW 15.9 H (11.5-15.5) % Lymphocytes # 0.8 L (1.0-4.8) k/uL Glucose 108 H (74-99) mg/dL Total Bilirubin 1.9 H (0.2-1.3) mg/dL RSV (PCR) Detected A (Not Detectd) SARS-CoV-2 (PCR) Detected A (Not Detectd)
[2024-07-04] MEDS: DEXAMETHASONE SOD PHOSPHATE 10 MG/ML 1 ML VIAL IVP SCH (17:23)
[2024-07-04] MEDS: carvediloL 12.5 MG TAB PO SCH (17:24)
[2024-07-04] MEDS: ALBUTEROL HFA INHALER INHALATION SCH (20:56)
[2024-07-04] MEDS: RANOLAZINE 500 MG TAB.ER.12H PO SCH (21:49)
[2024-07-04] MEDS: SACUBITRIL/VALSARTAN 24 MG-26 MG TABLET PO SCH (21:49)
[2024-07-05 06:23] LABS: Basophils % (A) 1 %; Eosinophils % (A) 0 %; HCT 41.1 % (39.0-53.0); HGB 12.6 gm/dL (13.0-17.5); Hypochromasia Moderate; Lymphocytes # (A) 0.5 k/uL (1.0-4.8); Lymphocytes % (A) 21 %; MCH 29.5 pg (25.0-35.0); MCHC 30.8 g/dL (31.0-37.0); MCV 95.7 fL (80.0-100.0); Mean Platelet Volume 7.7; Monocytes # (A) 0.1 k/uL (0-1.0); Monocytes % (A) 5 %; Neutrophils # (A) 1.8 k/uL (1.3-7.7); Neutrophils % (A) 70 %; Platelet Count 146 k/uL (150-450); RBC 4.29 m/uL (4.30-5.90); RDW 15.4 % (11.5-15.5); WBC 2.5 k/uL (3.8-10.6)
[2024-07-05 06:42] LABS: Prothrombin Time 10.9 sec (10.0-12.5)
[2024-07-05 06:50] LABS: ALT 21 U/L (4-49); AST 23 U/L (17-59); African American GFR (CKD) >90 (>60 ml/min/1.73 sqM); Albumin 4.1 g/dL (3.5-5.0); Alkaline Phosphatase 66 U/L (38-126); Anion Gap 9 mmol/L; Blood Urea Nitrogen 22 mg/dL (9-20); C Reactive Protein 1.2 mg/dL (<1.0); Calcium 8.6 mg/dL (8.4-10.2); Carbon Dioxide 30 mmol/L (22-30); Chloride 98 mmol/L (98-107); Glucose 129 mg/dL (74-99); LDH 197 U/L (120-246); Magnesium 2.2 mg/dL (1.6-2.3); Non-African American GFR(CKD) >90 (>60 ml/min/1.73 sqM); Potassium 4.8 mmol/L (3.5-5.1); Sodium 137 mmol/L (137-145); Total Bilirubin 1.3 mg/dL (0.2-1.3); Total Protein 6.7 g/dL (6.3-8.2)
[2024-07-05] MEDS ORDERED: ASPIRIN 325 MG TAB PO SCH (09:00)
[2024-07-05] MEDS: ASPIRIN 81 MG PO SCH (09:40)
[2024-07-05] MEDS: BENZONATATE 100 MG CAP PO SCH (09:41)
[2024-07-05] MEDS: CLOPIDOGREL 75 MG TAB PO SCH (09:41)
[2024-07-05] MEDS: ATORVASTATIN 80 MG TAB PO SCH (09:41)
[2024-07-05] MEDS: ISOSORBIDE MONONITRATE ER 60 MG TAB.ER.24H PO SCH (09:41)
[2024-07-05] MEDS: SPIRONOLACTONE 25 MG TAB PO SCH (09:41)
[2024-07-05] MEDS: ENOXAPARIN 40 MG/0.4 ML SYRINGE SQ SCH (09:43)
[2024-07-05] MEDS: FLUTICASONE NASAL 50MCG/SPRAY 16GM BTL EA NOSTRIL SCH (11:13)
[2024-07-05 11:32] LABS: Chol/HDL Ratio 4.72 Ratio
[2024-07-05 11:33] LABS: LDL Cholesterol,Calculated 90.4 mg/dL (0.0-131.0)
--- NOTE | 2024-07-05 11:44 | P.PN ---
Subjective Progress Note Date: 07/05/24 No new complaints. Ongoing cough, dyspnea. Pulm added tessalon perles for cough. PC was low. Cardiology c/s is pending. Gen: In NAD, non-toxic HEENT: normocephalic, atraumatic, hearing acuity is intant, mucous membranes moist CVS: perfusing all extremities well, no pitting edema, Respiratory: symmetric chest expansion, no accessory muscle use, diffuse wheezing GI: soft, NTTP, ND, : no suprapubic tenderness, no CVA tenderness MSK/Derm: no rashes, cyanosis Neuro: CN II-XII intact, no motor weakness, Psych: cooperative, euthymic mood, judgment and insight is intact Hospital Course: 69-year-old male with medical history of CAD status post CABG and status post PCI to the RCA approximately 2 and half weeks ago when she had 5 stents for difficult procedure, hypertension, hyperlipidemia, former smoker who presented for evaluation of dyspnea, congestion. In the emergency room, patient was afebrile, 105/66, heart rate 81, 86% on room air. CBC was unremarkable. Basic metabolic panel is unremarkable. Liver function test show mildly elevated total bilirubin of 1.9. Influenza A, B were negative. RSV, COVID were positive. Initial troponin is 0.026 then trended to 0.017 after 3 hours. Coags were unremarkable. EKG shows sinus rhythm with right axis deviation, poor R wave progression, right bundle branch morphology. Chest x-ray showed no acute cardiopulmonary process, does show COPD changes, cardiomegaly with post CABG changes. Case was discussed with emergency room provider and decision was made admit the patient to the hospital for further evaluation of hypoxemic respirat ory failure secondary to COVID and RSV pneumonia. Assessment/plan: Acute hypoxemic respiratory failure RSV and COVID-19 pneumonia Acute COPD exacerbation -Admit patient as an inpatient with telemetry -Dexamethasone 6 mg IV daily -Pulmonology consult -Albuterol 2 puffs 4 times daily as needed as well as scheduled (increase to q4h) -Antibiotics deferred at this time, procalcitonin is low -Inflammatory labs daily: D-dimer, ferritin, fibrinogen, LDH CAD status post CABG/PCI Heart failure with reduced ejection fraction, EF 35% -Continue aspirin, Plavix -Cardiology consulted -Telemetry as above Hypertension Hyperlipidemia -Home medications reviewed and reconciled DVT prophylaxis with enoxaparin Patient is DNR/DNI Objective - Vital Signs Vital signs: Vital Signs Temp 98.0 F 07/05/24 09:37 Pulse 73 07/05/24 11:15 Resp 22 07/05/24 11:15 BP 98/63 07/05/24 11:15 Pulse Ox 97 07/05/24 11:15 FiO2 Intake & Output 07/04/24 07/05/24 07/05/24 18:59 06:59 18:59 Weight 90.718 kg - Labs CBC & Chem 7: 07/05/24 05:53 07/05/24 05:53 Labs: Abnormal Lab Results - Last 24 Hours (Table) 07/04/24 07/04/24 07/04/24 Range/Units 12:45 12:55 12:55 WBC (3.8-10.6) k/uL RBC (4.30-5.90) m/uL Hgb (13.0-17.5) gm/dL MCHC (31.0-37.0) g/dL RDW 15.9 H (11.5-15.5) % Plt Count (150-450) k/uL Lymphocytes # 0.8 L (1.0-4.8) k/uL Fibrinogen (200-500) mg/dL D-Dimer (<0.60) mg/L FEU BUN (9-20) mg/dL Glucose 108 H (74-99) mg/dL Ferritin (22.0-322.0) ng/mL Total Bilirubin 1.9 H (0.2-1.3) mg/dL C-Reactive Protein (<1.0) mg/dL HDL Cholesterol (40.00-60.00) mg/dL RSV (PCR) Detected A (Not Detectd) SARS-CoV-2 (PCR) Detected A (Not Detectd) 07/05/24 07/05/24 07/05/24 Range/Units 05:53 05:53 05:53 WBC 2.5 L (3.8-10.6) k/uL RBC 4.29 L (4.30-5.90) m/uL Hgb 12.6 L (13.0-17.5) gm/dL MCHC 30.8 L (31.0-37.0) g/dL RDW (11.5-15.5) % Plt Count 146 L (150-450) k/uL Lymphocytes # 0.5 L (1.0-4.8) k/uL Fibrinogen 616 H (200-500) mg/dL D-Dimer 1.69 H (<0.60) mg/L FEU BUN 22 H (9-20) mg/dL Glucose 129 H (74-99) mg/dL Ferritin 443.0 H (22.0-322.0) ng/mL Total Bilirubin (0.2-1.3) mg/dL C-Reactive Protein 1.2 H (<1.0) mg/dL HDL Cholesterol 31.80 L (40.00-60.00) mg/dL RSV (PCR) (Not Detectd) SARS-CoV-2 (PCR) (Not Detectd)
--- NOTE | 2024-07-05 11:50 | P.CRDCN ---
History of Present Illness Consult date: 07/05/24 History of present illness: 69-year-old male with a past medical history of CAD status post CABG and status post PCI to the RCA approximately 2 and half weeks ago when she had 5 stents for difficult procedure, hypertension, hyperlipidemia, former smoker who presented for evaluation of dyspnea, congestion. Patient normally follows at [facility] [place]. Cardiology consulted for chest pain. States for the past few days he has gotten progressively more short of breath with increased congestion. Admits to increased shortness of breath and cough when laying down flat. Patient admits to alcohol use, and states he is a former smoker quit 06/06/24. Family history of cardiac issues in father with [place] and sister who had aortic dissection. Vitals significant for Heart rate 63, respiratory rate 18, blood pressure 139/70, O2 saturation 97% on 3 L. Labs significant for WBC 2.5, hemoglobin 12.6, MCV 95.7, fibrinogen 616, D-dimer 1.69, BUN 22, creatinine 0.78, glucose 129, troponin 0.026 --> 0.017 --> 0.019 and BNP 2300. Positive for RSV and COVID. EKG shows sinus rhythm with occasional ventricular premature complexes. Chest x-ray shows no acute cardiopulmonary disease process, COPD changes, and cardiomegaly with post CABG1 Cardiac medications: Nitrostat, Jardiance 10 mg p.o. daily, carvedilol 12.5 mg p.o. twice daily, Entresto 1 tab p.o. twice daily, Ranexa 500 mg p.o. twice daily, Aldactone 25 mg p.o. daily, Crestor 40 mg p.o. daily, Imdur 60 mg p.o. daily, and Plavix 75 mg p.o. daily Cardiac imaging: Limited echocardiogram (06/18/2024) shows limited study, EF of 35 to 40%, and no pericardial effusion Cardiac procedures: PCI to the RCA (06/18/2024), CABG double bypass and triple bypass. REVIEW OF SYSTEMS At the time of my exam: CONSTITUTIONAL: Denies fever or chills. CARDIOVASCULAR: no chest pain, + shortness of breath, no orthopnea, PND or palpitations. RESPIRATORY: Denies cough. GASTROINTESTINAL: Denies abdominal pain, diarrhea, constipation, nausea or vomiting. MUSCULOSKELETAL: Denies myalgias. NEUROLOGIC: Denies numbness, tingling or weakness. ENDOCRINE: Denies fatigue, weight change, polydipsia or polyurina. GENITOURINARY: Denies burning, hematuria or urgency with micturation. HEMATOLOGIC: Denies history of anemia or bleeding. PHYSICAL EXAM Vital signs reviewed. General: non toxic, no distress HEENT: Head is normocephalic. Pupils are equal, round. Sclerae anicteric. Mucous membranes of the mouth are moist. No JVD. No carotid bruit. Cardiovascular: S1S2 reg, no murmur, Lungs: Decreased air entry bilaterally, no rhonchi, no rales, no accessory muscle use, Abdominal: soft, nontender to palpation, no guarding NEUROLOGIC EXAMINATION: Patient is awake, alert and oriented x3. 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 I would recommend addition of SGLT2 dapagliflozin 10 mg daily other medication seems appropriate. If blood pressure heart rate tolerates, consider uptitrating beta-billy however it appears to be appropriate at this time at current dose. No need to repeat an echocardiogram on this admission. Continue home cardiac medications Holter monitor for 7 days to quantify PVC burden He should also get evaluated for AICD evaluation if his EF does not improve when he continues to have high PVC burden at the next visit prior to being medically cleared in the gross Patient is otherwise cleared from cardiovascular standpoint. Cardiology team will sign off. If in case of any question please reconsult us and contact Dr. Babcock, Monitor BP. Perform orthostatic vital sign and 6-minute walk test prior to discharge in the setting Past Medical History Past Medical History: Cancer, Chest Pain / Angina, COPD, CVA/TIA, Hyperlipidemia, Hypertension, Myocardial Infarction ([place]), Osteoarthritis (OA) Additional Past Medical History / Comment(s): generalized fatigue, unable to walk distance,SOB, CVA-several yrs. ago-post carotid endarterectomy-no residual effects; Right kidney cancer Last Myocardial Infarction Date:: 2012 History of Any Multi-Drug Resistant Organisms: None Reported Past Surgical History: Coronary Bypass/CABG, Heart Catheterization, Heart Catheterization With Stent Additional Past Surgical History / Comment(s): earlene. carotid endarterectomy, triple bypass 2012, diaphragm repair post CABG, fem-fem. bypass, Cryoablation of right renal tumor- approximately 2009 at [facility], Heart cath with stent x5 06/2024 Past Anesthesia/Blood Transfusion Reactions: No Reported Reaction Past Psychological History: Anxiety, Bipolar Smoking Status: Current every day smoker Past Alcohol Use History: Occasional Past Drug Use History: None Reported - Past Family History Mother History Unknown: Yes Family Medical History: Cancer Medications and Allergies Home Medications Medication Instructions Recorded Confirmed Type Rosuvastatin Calcium [Crestor] 40 mg PO DAILY 03/28/20 07/04/24 History carvediloL [Coreg] 12.5 mg PO BID 08/30/23 07/04/24 History Isosorbide Mononitrate ER [Imdur] 60 mg PO DAILY #60 tab 09/04/23 07/04/24 Rx Nitroglycerin Sl Tabs [Nitrostat] 0.4 mg SUBLINGUAL Q5M PRN #30 tab 09/04/23 07/04/24 Rx Ranolazine [Ranexa] 500 mg PO Q12HR #60 tab 09/04/23 07/04/24 Rx Spironolactone [Aldactone] 25 mg PO DAILY #30 tab 09/04/23 07/04/24 Rx Empagliflozin [Jardiance] 10 mg PO DAILY 06/11/24 07/04/24 History Sacubitril/Valsartan [Entresto 24 1 tab PO BID 06/11/24 07/04/24 History mg-26 mg Tablet] Clopidogrel [Plavix] 75 mg PO DAILY 07/04/24 07/04/24 History Fluticasone Nasal [place] [Flonase 1 spray EA NOSTRIL DAILY 07/04/24 07/04/24 History Nasal [place]] Allergies Allergy/AdvReac Type Severity Reaction Status Date / Time amlodipine [From Norvasc] Allergy per Verified 07/04/24 13:14 [facility] enalaprilat [From Vasotec] Allergy per Verified 07/04/24 13:14 [facility] isosorbide [From Imdur] Allergy per Verified 07/04/24 13:14 [facility], taking at home Physical Exam Vitals: Vital Signs Temp Pulse Pulse Resp BP BP Pulse Ox 07/05/24 05:43 98.2 F 63 63 18 139/70 139/70 97 07/05/24 01:42 98.7 F 71 16 118/69 95 07/04/24 18:56 97.7 F 87 20 110/56 96 07/04/24 17:25 98.5 F 85 85 20 142/76 96/70 95 07/04/24 14:27 98.9 F 90 18 94 L 07/04/24 14:19 83 20 103/64 91 L 07/04/24 12:23 81 18 105/66 86 L Results 07/05/24 05:53 07/05/24 05:53 Cardiac Enzymes 07/04/24 07/04/24 07/04/24 Range/Units 12:55 12:55 15:21 AST 25 (17-59) U/L Lactate Dehydrogenase (120-246) U/L Troponin I 0.026 0.017 (0.000-0.034) ng/mL 07/04/24 07/05/24 Range/Units 17:39 05:53 AST 23 (17-59) U/L Lactate Dehydrogenase 197 (120-246) U/L Troponin I 0.019 (0.000-0.034) ng/mL Coagulation 07/04/24 07/05/24 Range/Units 12:55 05:53 PT 10.9 10.9 (10.0-12.5) sec APTT 22.7 (22.0-30.0) sec CBC 07/04/24 07/05/24 Range/Units 12:55 05:53 WBC 4.8 2.5 L (3.8-10.6) k/uL RBC 4.42 4.29 L (4.30-5.90) m/uL Hgb 13.4 12.6 L (13.0-17.5) gm/dL Hct 41.4 41.1 (39.0-53.0) % Plt Count 176 D 146 L (150-450) k/uL Comprehensive Metabolic Panel 07/04/24 07/05/24 Range/Units 12:55 05:53 Sodium 137 137 (137-145) mmol/L Potassium 4.6 4.8 (3.5-5.1) mmol/L Chloride 100 98 (98-107) mmol/L Carbon Dioxide 22 30 (22-30) mmol/L BUN 20 22 H (9-20) mg/dL Creatinine 0.79 0.78 (0.66-1.25) mg/dL Glucose 108 H 129 H (74-99) mg/dL Calcium 8.5 8.6 (8.4-10.2) mg/dL AST 25 23 (17-59) U/L ALT 21 21 (4-49) U/L Alkaline Phosphatase 71 66 (38-126) U/L Total Protein 6.9 6.7 (6.3-8.2) g/dL Albumin 4.3 4.1 (3.5-5.0) g/dL Current Medications Generic Name Dose Route Start Last Admin Trade Name Freq PRN Reason Stop Dose Admin Acetaminophen 650 mg 07/04/24 15:31 Acetaminophen Tab 325 Mg Tab PO Q4HR PRN Fever>101 Albuterol Sulfate 2 puff 07/04/24 20:00 07/04/24 20:56 Albuterol Hfa Inhaler INHALATION 2 puff RT-QID [facility] Administration Albuterol Sulfate 2 puff 07/04/24 17:07 Albuterol Hfa Inhaler INHALATION RT-QID PRN Shortness Of Breath Or Wheezing Aspirin 81 mg 07/05/24 09:00 Aspirin 81 Mg PO DAILY [facility] Atorvastatin Calcium 80 mg 07/05/24 09:00 Atorvastatin 80 Mg Tab PO DAILY [facility] Carvedilol 12.5 mg 07/04/24 17:30 07/04/24 17:24 Carvedilol 12.5 Mg Tab PO 12.5 mg BID-W/MEALS [facility] Administration Clopidogrel Bisulfate 75 mg 07/05/24 09:00 Clopidogrel 75 Mg Tab PO DAILY [facility] Dexamethasone Sodium Phosphate 6 mg 07/04/24 15:45 07/04/24 17:23 Dexamethasone Sod Phosphate 10 Mg/Ml 1 Ml Vial IVP 6 mg DAILY [facility] Administration Enoxaparin Sodium 40 mg 07/05/24 09:00 Enoxaparin 40 Mg/0.4 Ml Syringe SQ Q24HR [facility] Fluticasone Propionate 1 spray 07/05/24 09:00 Fluticasone Nasal 50mcg/[place] 16gm Btl EA NOSTRIL DAILY [facility] Isosorbide Mononitrate 60 mg 07/05/24 09:00 Isosorbide Mononitrate Er 60 Mg Tab.Er.24h PO DAILY [facility] Nitroglycerin 0.4 mg 07/04/24 14:07 Nitroglycerin Sl Tabs 0.4 Mg Tab SUBLINGUAL Q5M PRN Chest Pain Ranolazine 500 mg 07/04/24 21:00 07/04/24 21:49 Ranolazine 500 Mg Tab.Er.12h PO 500 mg Q12HR [facility] Administration Sacubitril/Valsartan 1 each 07/04/24 21:00 07/04/24 21:49 Sacubitril/Valsartan 24 Mg-26 Mg Tablet PO 1 each BID [facility] Administration Spironolactone 25 mg 07/05/24 09:00 Spironolactone 25 Mg Tab PO DAILY [facility] 07/05/24 05:53 07/05/24 05:53
[2024-07-05] MEDS: ALBUTEROL HFA INHALER INHALATION SCH (12:31)
--- NOTE | 2024-07-05 13:56 | CT ---
EXAMINATION TYPE: CT chest angio for PE DATE OF EXAM: 07/05/2024 1:43 PM COMPARISON: 06/12/2024. CLINICAL INDICATION: Male, 69 years old with history of pulm embolism; PE, Covid and RSV positive Shortness of breath. TECHNIQUE/CONTRAST: CTA scan of the thorax is performed with IV Contrast, patient injected with 100 mL of Isovue 300, MIP images are created and reviewed these are created on a separate workstation.. CT DLP: 415.3 mGycm, Automated exposure control for dose reduction was used. FINDINGS: Lungs/Pleura: No evidence of focal consolidation, pleural effusion or pneumothorax. Centrilobular emp hysema changes as well as paraseptal emphysema changes noted. Streaky atelectasis/scarring in the dara g bases. Consolidation along the right lower lung pleural aspect likely atelectasis. Elevated left di aphragm. Airway: A few opacified large airways in the lung bases left greater than right. Mild bronchial wall thickening noted. Heart: Cardiomegaly is demonstrated. Moderate coronary artery calcifications present. Vasculature: Limited evaluation due to bolus timing, no evidence for central pulmonary embolus. The lobar, segmental and subsegmental branches are limited due to bolus timing. The pulmonary artery is o f normal size. Mediastinum: No gross evidence of adenopathy. Musculoskeletal: Moderate disc degeneration changes are present throughout the thoracolumbar spine se condary to osteophyte formation and facet joint arthropathy. Sternotomy wires are present. Soft Tissues/lymph nodes: Unremarkable. Lower neck: No significant findings. Upper Abdomen: Left renal simple appearing probable cysts. IMPRESSION: 1. No evidence of central pulmonary embolism. Limited evaluation of the segmental and subsegmental br anches. 2. Mild cardiomegaly. 3. Moderate coronary artery atherosclerosis. 4. A few opacified large airways in the lung bases correlate for aspiration/decrease plugging. 5. Mild emphysema changes throughout the lungs. 6. Elevated left diaphragm. 7. COPD changes Follow up recommendations for incidental pulmonary nodules, if there are any, are per [employer] or [employer]. https://radiopaedia.org/articles/rkesiwoakv-eudpmuw-mfhvpxkqy-txrnij-[email or web address]-[email or web address]?lang=us [facility], Workstation: [id number], 07/05/2024 1:54 PM
--- NOTE | 2024-07-05 14:55 | P.CNPUL ---
History of Present Illness Consult date: 07/05/24 Requesting physician: Keon Mcknight Reason for consult: dyspnea, chest pain Chief complaint: Chest pain, shortness of breath History of present illness: This is a 69-year-old male patient with a known history of chronic obstructive pulmonary disease, CVA/TIA, hypertension, hyperlipidemia, coronary artery disease with previous coronary artery bypass grafting, previous stenting, carotid artery disease with bilateral carotid endarterectomy, peripheral vascular disease with previous femorofemoral bypass, chronic and ongoing tobacco dependence. He presented here to the emergency room with complaints of chest pain and shortness of breath. He did state it felt like how his previous heart attacks felt. His most recent stents was placed June 18, 2024 to the middle and proximal RCA with good results. He was just discharged from here on first 2024. X-ray shows no acute cardiopulmonary process. Evidence of COPD. Cardiomegaly with post CABG changes. EKG reveals normal sinus rhythm with nonspecific ST and T wave abnormalities. CT angiogram ruled out pulmonary embolism. Mild emphysema noted. Evidence of COPD. Elevated left diaphragm. Count 2.5. Hemoglobin 12.6. Platelets 146. D-dimer 1.69. Sodium 137. Potassium 4.8. Bicarb 30. BUN 22. Creatinine 0.78. Troponins negative x 3. proBNP 2300. Procalcitonin negative at 0.09. Viral screen positive for both RSV and COVID. He is seen today in consultation in the emergency department. He is currently sitting up on the stretcher. Awake and alert in no acute distress. He does have dyspnea with conversation, dyspnea with minimal exertion. He has a loose nonproductive cough. O2 saturations in the mid 90s on 3 L/min per nasal cannula. He is afebrile. Review of Systems REVIEW OF SYSTEMS: CONSTITUTIONAL: Denies any recent significant weight loss or weight gain. EYES: Denies change in vision. EARS, NOSE, MOUTH, THROAT: Denies headaches, denies sore throat. CARDIOVASCULAR: Positive for chest pain, no palpitations or syncopal episodes. RESPIRATORY: Positive for shortness of breath, cough, congestion no hemoptysis. GASTROINTESTINAL: Denies change in appetite, denies abdominal pain GENITOURINARY: Denies hematuria, denies infections. MUSKULOSKELETAL: Denies pain, denies swelling. INTEGUMENTARY: Denies rash, denies eczema. NEUROLOGICAL: Denies recent memory loss, no recent seizure activity. PSYCHIATRIC: Denies anxiety, denies depression. HEMATOLOGIC/LYMPHATIC: Denies anemia, denies enlarged lymph nodes. Past Medical History Past Medical History: Cancer, Chest Pain / Angina, COPD, CVA/TIA, Hyperlipidemia, Hypertension, Myocardial Infarction (MS), Osteoarthritis (OA) Additional Past Medical History / Comment(s): generalized fatigue, unable to walk distance,SOB, CVA-several yrs. ago-post carotid endarterectomy-no residual effects; Right kidney cancer Last Myocardial Infarction Date:: 2012 History of Any Multi-Drug Resistant Organisms: None Reported Past Surgical History: Coronary Bypass/CABG, Heart Catheterization, Heart C atheterization With Stent Additional Past Surgical History / Comment(s): earlene. carotid endarterectomy, triple bypass 2012, diaphragm repair post CABG, fem-fem. bypass, Cryoablation of right renal tumor- approximately 2009 at [facility], Heart cath with stent x5 06/2024 Past Anesthesia/Blood Transfusion Reactions: No Reported Reaction Past Psychological History: Anxiety, Bipolar Smoking Status: Current every day smoker Past Alcohol Use History: Occasional Past Drug Use History: None Reported - Past Family History Mother History Unknown: Yes Family Medical History: Cancer Medications and Allergies Home Medications Medication Instructions Recorded Confirmed Type Rosuvastatin Calcium [Crestor] 40 mg PO DAILY 03/28/20 07/04/24 History carvediloL [Coreg] 12.5 mg PO BID 08/30/23 07/04/24 History Isosorbide Mononitrate ER [Imdur] 60 mg PO DAILY #60 tab 09/04/23 07/04/24 Rx Nitroglycerin Sl Tabs [Nitrostat] 0.4 mg SUBLINGUAL Q5M PRN #30 tab 09/04/23 07/04/24 Rx Ranolazine [Ranexa] 500 mg PO Q12HR #60 tab 09/04/23 07/04/24 Rx Spironolactone [Aldactone] 25 mg PO DAILY #30 tab 09/04/23 07/04/24 Rx Empagliflozin [Jardiance] 10 mg PO DAILY 06/11/24 07/04/24 History Sacubitril/Valsartan [Entresto 24 1 tab PO BID 06/11/24 07/04/24 History mg-26 mg Tablet] Clopidogrel [Plavix] 75 mg PO DAILY 07/04/24 07/04/24 History Fluticasone Nasal Byron [Flonase 1 spray EA NOSTRIL DAILY 07/04/24 07/04/24 History Nasal Byron] Allergies Allergy/AdvReac Type Severity Reaction Status Date / Time amlodipine [From Norvasc] Allergy per Verified 07/04/24 13:[address] [facility] enalaprilat [From Vasotec] Allergy per Verified 07/04/24 13:[address] [facility] isosorbide [From Imdur] Allergy per Verified 07/04/24 13:[address] [facility], taking at home Physical Exam Vitals: Vital Signs Temp Pulse Pulse Resp BP BP Pulse Ox 07/05/24 13:39 97.8 F 70 18 98/57 94 L 07/05/24 13:05 73 18 85/50 95 07/05/24 12:55 82/50 07/05/24 12:52 73/42 07/05/24 11:15 73 22 98/63 97 07/05/24 09:37 98.0 F 78 22 134/79 94 L 07/05/24 05:43 98.2 F 63 63 18 139/70 139/70 97 07/05/24 01:42 98.7 F 71 16 118/69 95 07/04/24 18:56 97.7 F 87 20 110/56 96 07/04/24 17:25 98.5 F 85 85 20 142/76 96/70 95 GENERAL EXAM: Alert, 69-year-old male, sitting up on a stretcher, on 3 L nasal cannula, fairly comfortable in no apparent distress. HEAD: Normocephalic. EYES: Normal reaction of pupils, equal size. NOSE: Clear with pink turbinates. THROAT: No erythema or exudates. NECK: No masses, no JVD. CHEST: No chest wall deformity. LUNGS: Equal air entry with few scattered rhonchi. Diminished. CVS: S1 and S2 normal with no audible murmur, regular rhythm. ABDOMEN: No hepatosplenomegaly, normal bowel sounds, no guarding or rigidity. SPINE: No scoliosis or deformity SKIN: No rashes CENTRAL NERVOUS SYSTEM: No focal deficits, tone is normal in all 4 extremities. EXTREMITIES: There is no peripheral edema. No clubbing, no cyanosis. Peripheral pulses are intact. Results - Laboratory Findings CBC and BMP: 07/05/24 05:53 07/05/24 05:53 PT/INR, D-dimer PT 10.9 sec (10.0-12.5) 07/05/24 05:53 INR 1.0 (<1.2) 07/05/24 05:53 D-Dimer 1.69 mg/L FEU (<0.60) H 07/05/24 05:53 Abnormal lab findings: Abnormal Labs 07/04/24 07/04/24 07/04/24 12:45 12:55 12:55 WBC RBC Hgb MCHC RDW 15.9 H Plt Count Lymphocytes # 0.8 L Fibrinogen D-Dimer BUN Glucose 108 H Ferritin Total Bilirubin 1.9 H C-Reactive Protein HDL Cholesterol RSV (PCR) Detected A SARS-CoV-2 (PCR) Detected A 07/05/24 07/05/24 07/05/24 05:53 05:53 05:53 WBC 2.5 L RBC 4.29 L Hgb 12.6 L MCHC 30.8 L RDW Plt Count 146 L Lymphocytes # 0.5 L Fibrinogen 616 H D-Dimer 1.69 H BUN 22 H Glucose 129 H Ferritin 443.0 H Total Bilirubin C-Reactive Protein 1.2 H HDL Cholesterol 31.80 L RSV (PCR) SARS-CoV-2 (PCR) - Diagnostic Findings Chest x-ray: image reviewed CT scan - chest: image reviewed Assessment and Plan Assessment: Chest pain in a patient with a known history of coronary artery disease, acute coronary syndrome ruled out Acute hypoxic respiratory failure secondary to RSV and COVID infections. CT angiogram ruled out pulmonary embolism Recent admission for an acute NSTEMI status post PCI to left main to ramus. Residual disease to RCA. The patient underwent further coronary intervention, PCI and multiple stenting of the RCA. Procedure was complicated by hypotension and bradycardia arrhythmias. History of atrial fibrillation, currently in sinus rhythm. Ischemic cardiomyopathy with EF 30 to 35% Multivessel CAD with previous CABG and redo CABG in 2017 Bilateral carotid artery stenosis status post endarterectomy, bilateral Peripheral artery disease status post femorofemoral bypass left to right COVID infection and pneumonia, completing a prednisone burst taper COPD exacerbation, stable and improving the patient is currently on a prednisone burst taper Hypertension Hyperlipidemia Chronic tobacco use and dependence, <1ppd Obesity Plan: The patient was seen and evaluated Imaging, labs and medications reviewed Procalcitonin negative Troponins negative Initiated on Decadron Initiated on albuterol Added Tessalon Perles for his cough Lovenox for DVT prophylaxis Titrate down the FiO2 as tolerated DNR CODE STATUS We will continue to follow and make further recommendations based on his clinical status I have personally seen and examined the patient, performed the documentation and the assessment and plan as written. Number of minutes spent on the visit: 20 Dictation was produced using [employer] dictation software. Please excuse any grammatical, word or spelling errors.
[2024-07-05] MEDS: DAPAGLIFLOZIN PROPANEDIOL 10 MG TABLET PO SCH (16:35)
[2024-07-05] MEDS: carvediloL 3.125 MG TAB PO SCH (16:35)
[2024-07-05 20:34] LABS: Glucose,Whole Blood 163 mg/dL (70-110)
[2024-07-06] MEDS: guaiFENesin 600 MG TABLET.ER PO SCH (02:34)
[2024-07-06 06:24] LABS: Glucose,Whole Blood 147 mg/dL (70-110)
[2024-07-06 07:25] LABS: Basophils % (A) 0 %; Eosinophils % (A) 0 %; HGB 12.3 gm/dL (13.0-17.5); Hypochromasia Slight; Lymphocytes # (A) 0.8 k/uL (1.0-4.8); Lymphocytes % (A) 16 %; MCH 29.5 pg (25.0-35.0); MCHC 30.9 g/dL (31.0-37.0); MCV 95.4 fL (80.0-100.0); Mean Platelet Volume 8.2; Monocytes # (A) 0.3 k/uL (0-1.0); Monocytes % (A) 6 %; Neutrophils # (A) 3.7 k/uL (1.3-7.7); Neutrophils % (A) 74 %; Platelet Count 131 k/uL (150-450); RBC 4.19 m/uL (4.30-5.90); RDW 15.5 % (11.5-15.5); WBC 4.9 k/uL (3.8-10.6)
[2024-07-06 07:40] LABS: ALT 20 U/L (4-49); AST 20 U/L (17-59); African American GFR (CKD) >90 (>60 ml/min/1.73 sqM); Albumin 3.9 g/dL (3.5-5.0); Alkaline Phosphatase 62 U/L (38-126); Anion Gap 4 mmol/L; Blood Urea Nitrogen 28 mg/dL (9-20); C Reactive Protein 0.6 mg/dL (<1.0); Carbon Dioxide 32 mmol/L (22-30); Chloride 100 mmol/L (98-107); Glucose 132 mg/dL (74-99); LDH 181 U/L (120-246); Magnesium 2.2 mg/dL (1.6-2.3); Non-African American GFR(CKD) >90 (>60 ml/min/1.73 sqM); Potassium 4.8 mmol/L (3.5-5.1); Sodium 136 mmol/L (137-145); Total Protein 6.4 g/dL (6.3-8.2)
[2024-07-06 08:15] LABS: INR 0.9 (<1.2)
[2024-07-06 08:16] LABS: Prothrombin Time 10.1 sec (10.0-12.5)
[2024-07-06] MEDS ORDERED: ISOSORBIDE MONONITRATE ER 60 MG TAB.ER.24H PO SCH (09:00)
[2024-07-06 11:42] LABS: Glucose,Whole Blood 121 mg/dL (70-110)
--- NOTE | 2024-07-06 12:18 | P.PN ---
Subjective Progress Note Date: 07/06/24 No new complaints. Pt is down to 2L NC. Still feels congested. Gen: In NAD, non-toxic HEENT: normocephalic, atraumatic, hearing acuity is intant, mucous membranes moist CVS: perfusing all extremities well, no pitting edema, Respiratory: symmetric chest expansion, no accessory muscle use, diffuse whee zing GI: soft, NTTP, ND, : no suprapubic tenderness, no CVA tenderness MSK/Derm: no rashes, cyanosis Neuro: CN II-XII intact, no motor weakness, Psych: cooperative, euthymic mood, judgment and insight is intact Hospital Course: 69-year-old male with medical history of CAD status post CABG and status post PCI to the RCA approximately 2 and half weeks ago when she had 5 stents for difficult procedure, hypertension, hyperlipidemia, former smoker who presented for evaluation of dyspnea, congestion. In the emergency room, patient was afebrile, 105/66, heart rate 81, 86% on room air. CBC was unremarkable. Basic metabolic panel is unremarkable. Liver function test show mildly elevated total bilirubin of 1.9. Influenza A, B were negative. RSV, COVID were positive. Initial troponin is 0.026 then trended to 0.017 after 3 hours. Coags were unremarkable. EKG shows sinus rhythm with right axis deviation, poor R wave progression, right bundle branch morphology. Chest x-ray showed no acute cardiopulmonary process, does show COPD changes, cardiomegaly with post CABG changes. Case was discussed with emergency room provider and decision was made admit the patient to the hospital for further evaluation of hypoxemic respiratory failure secondary to COVID and RSV pneumonia. Assessment/plan: Acute hypoxemic respiratory failure RSV and COVID-19 pneumonia Acute COPD exacerbation -Admit patient as an inpatient with telemetry -Dexamethasone 6 mg IV daily -Pulmonology consult appreciated -Albuterol 2 puffs 4 times daily as needed as well as scheduled (increase to q4h) -Antibiotics deferred at this time, procalcitonin is low -Inflammatory labs daily: D-dimer, ferritin, fibrinogen, LDH CAD status post CABG/PCI Heart failure with reduced ejection fraction, EF 35% -Continue aspirin, Plavix -Cardiology consulted -Telemetry as above -holding home imdur, entresto, aldactone due to hypotension -reduced dose of coreg due to hypotension Hypertension Hyperlipidemia -Home medications reviewed and reconciled DVT prophylaxis with enoxaparin Patient is DNR/DNI Objective - Vital Signs Vital signs: Vital Signs Temp 97.8 F 07/06/24 11:38 Pulse 63 07/06/24 11:38 Resp 20 07/06/24 11:38 BP 134/68 07/06/24 11:38 Pulse Ox 96 07/06/24 11:38 FiO2 Intake & Output 07/05/24 07/06/24 07/06/24 18:59 06:59 18:59 Intake Total 200 240 Balance 200 240 Weight 90.718 kg Intake: Oral 200 240 Other: Voiding Method Toilet # Voids 1 - Labs CBC & Chem 7: 07/06/24 06:21 07/06/24 06:21 Labs: Abnormal Lab Results - Last 24 Hours (Table) 07/05/24 07/06/24 07/06/24 Range/Units 20:27 06:21 06:21 RBC 4.19 L (4.30-5.90) m/uL Hgb 12.3 L (13.0-17.5) gm/dL MCHC 30.9 L (31.0-37.0) g/dL Plt Count 131 L (150-450) k/uL Lymphocytes # 0.8 L (1.0-4.8) k/uL Fibrinogen 505 H (200-500) mg/dL D-Dimer 1.66 H (<0.60) mg/L FEU Sodium (137-145) mmol/L Carbon Dioxide (22-30) mmol/L BUN (9-20) mg/dL Glucose (74-99) mg/dL POC Glucose (mg/dL) 163 H (70-110) mg/dL 07/06/24 07/06/24 07/06/24 Range/Units 06:21 06:22 11:40 RBC (4.30-5.90) m/uL Hgb (13.0-17.5) gm/dL MCHC (31.0-37.0) g/dL Plt Count (150-450) k/uL Lymphocytes # (1.0-4.8) k/uL Fibrinogen (200-500) mg/dL D-Dimer (<0.60) mg/L FEU Sodium 136 L (137-145) mmol/L Carbon Dioxide 32 H (22-30) mmol/L BUN 28 H (9-20) mg/dL Glucose 132 H (74-99) mg/dL POC Glucose (mg/dL) 147 H 121 H (70-110) mg/dL
--- NOTE | 2024-07-06 15:08 | P.PN ---
Subjective Progress Note Date: 07/06/24 Principal diagnosis: Cough, shortness of breath. This is a 69-year-old male patient with a known history of chronic obstructive pulmonary disease, CVA/TIA, hypertension, hyperlipidemia, coronary artery disease with previous coronary artery bypass grafting, previous stenting, car otid artery disease with bilateral carotid endarterectomy, peripheral vascular disease with previous femorofemoral bypass, chronic and ongoing tobacco dependence. He presented here to the emergency room with complaints of chest pain and shortness of breath. He did state it felt like how his previous heart attacks felt. His most recent stents was placed June 18, 2024 to the middle and proximal RCA with good results. He was just discharged from here on first 2024. X-ray shows no acute cardiopulmonary process. Evidence of COPD. Cardiomegaly with post CABG changes. EKG reveals normal sinus rhythm with nonspecific ST and T wave abnormalities. CT angiogram ruled out pulmonary embolism. Mild emphysema noted. Evidence of COPD. Elevated left diaphragm. Count 2.5. Hemoglobin 12.6. Platelets 146. D-dimer 1.69. Sodium 137. Potassium 4.8. Bicarb 30. BUN 22. Creatinine 0.78. Troponins negative x 3. proBNP 2300. Procalcitonin negative at 0.09. Viral screen positive for both RSV and COVID. He is seen today in consultation in the emergency department. He is currently sitting up on the stretcher. Awake and alert in no acute distress. He does have dyspnea with conversation, dyspnea with minimal exertion. He has a loose nonproductive cough. O2 saturations in the mid 90s on 3 L/min per nasal cannula. He is afebrile. Progress note dated July 06, 2024. 69-year-old male seen in the emergency department yesterday, with complaints of cough, and minimal shortness of breath. The patient apparently tested positive for both RSV, and coronavirus. Today, the patient is quite bronchospastic. He is on 2 L. Saturations are 96%. The patient is currently on Tessalon, Decadron, and albuterol inhaler. We are going to DC the Decadron, give the patient Symbicort, and Solu-Medrol 60 mg every 6. The patient is sitting in a chair, next to his hospital bed. White count is 4.9, hemoglobin 12.3, hematocrit 40, platelet count 131,000. Sodium 136, potassium 4.8, chlorides 100, CO2 32, BUN 28, creatinine 0.77. Glucose is 121. Procalcitonin level was 0.08. CTA, was negative for pulmonary embolism, showed mild cardiomegaly, coronary artery calcification, and mucous plugging. There were also changes of COPD. Objective - Vital Signs Vital signs: Vital Signs Temp 97.8 F 07/06/24 11:38 Pulse 63 07/06/24 13:47 Resp 20 07/06/24 11:38 BP 134/68 07/06/24 11:38 Pulse Ox 96 07/06/24 11:38 FiO2 Intake & Output 07/05/24 07/06/24 07/06/24 18:59 06:59 18:59 Intake Total 200 240 Balance 200 240 Weight 90.718 kg Intake: Oral 200 240 Other: Voiding Method Toilet # Voids 1 - Exam No acute distress, oriented 3. Currently on 2 L nasal cannula. Saturations are 96%. HEENT examination is grossly unremarkable. Mucous membranes are moist. No oral lesions. Neck supple. Full range of motion. No adenopathy thyromegaly or neck vein distention. Cardiovascular examination reveals regular rhythm rate. S1-S2 normal. No S3 or S4. No discernible murmur noted. Heart sounds are distant. Lungs reveal diffuse bilateral inspiratory and expiratory wheezes, and rhonchi. The patient is quite bronchospastic. There are no crackles. Abdomen soft bowel sounds are heard. No masses or tenderness. Extremities are intact. No cyanosis clubbing or edema. Skin is without rash or lesion. Neurologic examination is brief but nonfocal. - Labs CBC & Chem 7: 07/06/24 06:21 07/06/24 06:21 Labs: Abnormal Lab Results - Last 24 Hours (Table) 07/05/24 07/06/24 07/06/24 Range/Units 20:27 06:21 06:21 RBC 4.19 L (4.30-5.90) m/uL Hgb 12.3 L (13.0-17.5) gm/dL MCHC 30.9 L (31.0-37.0) g/dL Plt Count 131 L (150-450) k/uL Lymphocytes # 0.8 L (1.0-4.8) k/uL Fibrinogen 505 H (200-500) mg/dL D-Dimer 1.66 H (<0.60) mg/L FEU Sodium (137-145) mmol/L Carbon Dioxide (22-30) mmol/L BUN (9-20) mg/dL Glucose (74-99) mg/dL POC Glucose (mg/dL) 163 H (70-110) mg/dL Ferritin (22.0-322.0) ng/mL 07/06/24 07/06/24 07/06/24 Range/Units 06:21 06:22 11:40 RBC (4.30-5.90) m/uL Hgb (13.0-17.5) gm/dL MCHC (31.0-37.0) g/dL Plt Count (150-450) k/uL Lymphocytes # (1.0-4.8) k/uL Fibrinogen (200-500) mg/dL D-Dimer (<0.60) mg/L FEU Sodium 136 L (137-145) mmol/L Carbon Dioxide 32 H (22-30) mmol/L BUN 28 H (9-20) mg/dL Glucose 132 H (74-99) mg/dL POC Glucose (mg/dL) 147 H 121 H (70-110) mg/dL Ferritin 464.0 H (22.0-322.0) ng/mL Assessment and Plan Assessment: Chest pain in a patient with a known history of coronary artery disease. Acute hypoxic respiratory failure secondary to RSV and COVID infections. Recent admission for an acute NSTEMI status post PCI to left main to ramus. Residual disease to RCA. The patient underwent further coronary intervention, PCI and multiple stenting of the RCA. History of atrial fibrillation, currently in sinus rhythm. Ischemic cardiomyopathy with EF 30 to 35%. Multivessel CAD with previous CABG and redo CABG in 2017. Bilateral carotid artery stenosis status post endarterectomy. Peripheral artery disease S/P femorofemoral bypass left to right. COVID infection and pneumonia. COPD exacerbation. Hypertension. Hyperlipidemia. Chronic tobacco use and dependence. Obesity. Plan: Plan dated July 06, 2024. The patient is seen today in room 385. The patient is on 2 L of oxygen. The patient's saturation is 96%. The patient is on Tessalon, Decadron, and albuterol. Because of his ongoing bronchospasm, the patient's Decadron is discontinued in favor of Solu-Medrol, 60 mg every 6 hours. In addition, we add Symbicort 160/4.5, 2 puffs twice a day. Labs, x-rays, and medications are reviewed. The patient is a DO NOT RESUSCITATE patient. We will continue to follow and make recommendations along the way. Prognosis is guarded. Dictation was produced using [employer] dictation software. Please excuse any grammatical, word or spelling errors. Time with Patient: Less than 30
[2024-07-06 16:46] LABS: Glucose,Whole Blood 111 mg/dL (70-110)
[2024-07-06] MEDS: methylPREDNISolone SOD SUCCI 125 MG/2 ML VIAL IV SCH (17:53)
[2024-07-06 20:43] LABS: Glucose,Whole Blood 216 mg/dL (70-110)
[2024-07-06] MEDS: SYMBICORT 160-4.5 MCG INHALER INHALATION SCH (21:00)
[2024-07-06] MEDS: ALPRAZolam 0.25 MG TAB PO STA (23:43)
[2024-07-07 06:18] LABS: Glucose,Whole Blood 168 mg/dL (70-110)
[2024-07-07 07:46] LABS: Basophils % (A) 0 %; Eosinophils % (A) 0 %; HCT 40.9 % (39.0-53.0); HGB 13.3 gm/dL (13.0-17.5); Hypochromasia Moderate; Lymphocytes # (A) 0.6 k/uL (1.0-4.8); Lymphocytes % (A) 10 %; MCH 31.1 pg (25.0-35.0); MCHC 32.5 g/dL (31.0-37.0); MCV 95.8 fL (80.0-100.0); Mean Platelet Volume 8.1; Monocytes # (A) 0.2 k/uL (0-1.0); Monocytes % (A) 3 %; Neutrophils % (A) 85 %; Platelet Count 124 k/uL (150-450); RBC 4.27 m/uL (4.30-5.90); RDW 15.6 % (11.5-15.5); WBC 5.8 k/uL (3.8-10.6)
[2024-07-07 08:02] LABS: INR 0.9 (<1.2); Prothrombin Time 10.6 sec (10.0-12.5)
[2024-07-07 08:12] LABS: ALT 21 U/L (4-49); AST 18 U/L (17-59); African American GFR (CKD) >90 (>60 ml/min/1.73 sqM); Albumin 3.9 g/dL (3.5-5.0); Alkaline Phosphatase 63 U/L (38-126); Anion Gap 7 mmol/L; Blood Urea Nitrogen 23 mg/dL (9-20); Calcium 8.8 mg/dL (8.4-10.2); Carbon Dioxide 32 mmol/L (22-30); Chloride 100 mmol/L (98-107); Glucose 161 mg/dL (74-99); LDH 176 U/L (120-246); Magnesium 2.1 mg/dL (1.6-2.3); Non-African American GFR(CKD) >90 (>60 ml/min/1.73 sqM); Potassium 4.6 mmol/L (3.5-5.1); Sodium 139 mmol/L (137-145); Total Bilirubin 0.7 mg/dL (0.2-1.3); Total Protein 6.4 g/dL (6.3-8.2)
[2024-07-07 08:53] LABS: C Reactive Protein 0.5 mg/dL (<1.0)
[2024-07-07 11:30] LABS: Glucose,Whole Blood 156 mg/dL (70-110)
--- NOTE | 2024-07-07 12:42 | P.PN ---
Subjective Progress Note Date: 07/07/24 No new complaints. Pt is down to 2L NC. Still feels congested, but overall improved. Has good appetite. Gen: In NAD, non-toxic HEENT: normocephalic, atraumatic, hearing acuity is intant, mucous membranes moist CVS: perfusing all extremities well, no pitting edema, Respiratory: symmetric chest expansion, no accessory muscle use, diffuse wheezing GI: soft, NTTP, ND, : no suprapubic tenderness, no CVA tenderness MSK/Derm: no rashes, cyanosis Neuro: CN II-XII intact, no motor weakness, Psych: cooperative, euthymic mood, judgment and insight is intact Hospital Course: 69-year-old male with medical history of CAD status post CABG and status post PCI to the RCA approximately 2 and half weeks ago when she had 5 stents for difficult procedure, hypertension, hyperlipidemia, former smoker who presented for evaluation of dyspnea, congestion. In the emergency room, patient was afebrile, 105/66, heart rate 81, 86% on room air. CBC was unremarkable. Basic metabolic panel is unremarkable. Liver function test show mildly elevated total bilirubin of 1.9. Influenza A, B were negative. RSV, COVID were positive. Initial troponin is 0.026 then trended to 0.017 after 3 hours. Coags were un remarkable. EKG shows sinus rhythm with right axis deviation, poor R wave progression, right bundle branch morphology. Chest x-ray showed no acute cardiopulmonary process, does show COPD changes, cardiomegaly with post CABG changes. Case was discussed with emergency room provider and decision was made admit the patient to the hospital for further evaluation of hypoxemic respiratory failure secondary to COVID and RSV pneumonia. Assessment/plan: Acute hypoxemic respiratory failure RSV and COVID-19 pneumonia Acute COPD exacerbation -Admit patient as an inpatient with telemetry -Dexamethasone 6 mg IV daily switched to solumedrol 60mg q6h -Pulmonology consult appreciated -Albuterol 2 puffs 4 times daily as needed as well as scheduled (increase to q4h) -Antibiotics deferred at this time, procalcitonin is low CAD status post CABG/PCI Heart failure with reduced ejection fraction, EF 35% -Continue aspirin, Plavix -Cardiology consulted -Telemetry as above -holding home imdur, entresto, aldactone due to hypotension -reduced dose of coreg due to hypotension Hypertension Hyperlipidemia -Home medications reviewed and reconciled DVT prophylaxis with enoxaparin Patient is DNR/DNI Objective - Vital Signs Vital signs: Vital Signs Temp 97.7 F 07/07/24 12:00 Pulse 64 07/07/24 12:00 Resp 18 07/07/24 12:00 BP 133/68 07/07/24 12:00 Pulse Ox 96 07/07/24 12:00 FiO2 Intake & Output 07/06/24 07/07/24 07/07/24 17:59 06:59 18:59 Intake Total 250 Balance 250 Weight Intake: IV 10 Invasive Line 1 10 Oral 240 Other: Voiding Method Toilet # Voids - Labs CBC & Chem 7: 07/07/24 07:18 07/07/24 07:18 Labs: Abnormal Lab Results - Last 24 Hours (Table) 07/06/24 07/06/24 07/06/24 Range/Units 06:21 11:40 16:45 RBC (4.30-5.90) m/uL RDW (11.5-15.5) % Plt Count (150-450) k/uL Lymphocytes # (1.0-4.8) k/uL D-Dimer (<0.60) mg/L FEU Carbon Dioxide (22-30) mmol/L BUN (9-20) mg/dL Glucose (74-99) mg/dL POC Glucose (mg/dL) 121 H 111 H (70-110) mg/dL Ferritin 464.0 H (22.0-322.0) ng/mL 07/06/24 07/07/24 07/07/24 Range/Units 20:42 06:16 07:18 RBC 4.27 L (4.30-5.90) m/uL RDW 15.6 H (11.5-15.5) % Plt Count 124 L (150-450) k/uL Lymphocytes # 0.6 L (1.0-4.8) k/uL D-Dimer (<0.60) mg/L FEU Carbon Dioxide (22-30) mmol/L BUN (9-20) mg/dL Glucose (74-99) mg/dL POC Glucose (mg/dL) 216 H 168 H (70-110) mg/dL Ferritin (22.0-322.0) ng/mL 07/07/24 07/07/24 07/07/24 Range/Units 07:18 07:18 11:28 RBC (4.30-5.90) m/uL RDW (11.5-15.5) % Plt Count (150-450) k/uL Lymphocytes # (1.0-4.8) k/uL D-Dimer 1.26 H (<0.60) mg/L FEU Carbon Dioxide 32 H (22-30) mmol/L BUN 23 H (9-20) mg/dL Glucose 161 H (74-99) mg/dL POC Glucose (mg/dL) 156 H (70-110) mg/dL Ferritin (22.0-322.0) ng/mL
[2024-07-07] MEDS: ISOSORBIDE MONONITRATE ER 15 MG TAB PO SCH (13:14)
[2024-07-07] MEDS: SACUBITRIL/VALSARTAN 24 MG-26 MG TABLET PO SCH (13:14)
--- NOTE | 2024-07-07 14:41 | P.PN ---
Subjective Progress Note Date: 07/07/24 This is a 69-year-old male patient with a known history of chronic obstructive pulmonary disease, CVA/TIA, hypertension, hyperlipidemia, coronary artery disease with previous coronary artery bypass grafting, previous stenting, carotid artery disease with bilateral carotid endarterectomy, peripheral vascul ar disease with previous femorofemoral bypass, chronic and ongoing tobacco dependence. He presented here to the emergency room with complaints of chest pain and shortness of breath. He did state it felt like how his previous heart attacks felt. His most recent stents was placed June 18, 2024 to the middle and proximal RCA with good results. He was just discharged from here on first 2024. X-ray shows no acute cardiopulmonary process. Evidence of COPD. Cardiomegaly with post CABG changes. EKG reveals normal sinus rhythm with nonspecific ST and T wave abnormalities. CT angiogram ruled out pulmonary embolism. Mild emphysema noted. Evidence of COPD. Elevated left diaphragm. Count 2.5. Hemoglobin 12.6. Platelets 146. D-dimer 1.69. Sodium 137. Potassium 4.8. Bicarb 30. BUN 22. Creatinine 0.78. Troponins negative x 3. proBNP 2300. Procalcitonin negative at 0.09. Viral screen positive for both RSV and COVID. He is seen today in consultation in the emergency department. He is currently sitting up on the stretcher. Awake and alert in no acute distress. He does have dyspnea with conversation, dyspnea with minimal exertion. He has a loose nonproductive cough. O2 saturations in the mid 90s on 3 L/min per nasal cannula. He is afebrile. Progress note dated July 06, 2024. 69-year-old male seen in the emergency department yesterday, with complaints of cough, and minimal shortness of breath. The patient apparently tested positive for both RSV, and coronavirus. Today, the patient is quite bronchospastic. He is on 2 L. Saturations are 96%. The patient is currently on Tessalon, Decadron, and albuterol inhaler. We are going to DC the Decadron, give the patient Symbicort, and Solu-Medrol 60 mg every 6. The patient is sitting in a chair, next to his hospital bed. White count is 4.9, hemoglobin 12.3, hematocrit 40, platelet count 131,000. Sodium 136, potassium 4.8, chlorides 100, CO2 32, BUN 28, creatinine 0.77. Glucose is 121. Procalcitonin level was 0.08. CTA, was negative for pulmonary embolism, showed mild cardiomegaly, coronary artery calcification, and mucous plugging. There were also changes of COPD. The patient is seen today July 07, 2024 in follow-up on the selective care unit. He is currently sitting up in bed. Awake and alert in no acute distress. He still has congested cough. He is maintaining O2 saturations in the 90s on 2 L/min per nasal cannula. No IV fluids. He remains on Symbicort, albuterol, Solu-Medrol. Lovenox for DVT prophylaxis. Continued on Mucinex and Tessalon Perles. We will add a flutter valve. White count 5.8. Hemoglobin 13.3. Platelets 124. Sodium 139. Potassium 4.6. Bicarb 32. BUN 23. Creatinine 0.71. Glucose 161. Objective - Vital Signs Vital signs: Vital Signs Temp 97.7 F 07/07/24 12:00 Pulse 64 07/07/24 12:00 Resp 18 07/07/24 12:00 BP 133/68 07/07/24 12:00 Pulse Ox 96 07/07/24 12:00 FiO2 Intake & Output 07/06/24 07/07/24 07/07/24 17:59 06:59 18:59 Intake Total 260 Balance 260 Weight Intake: IV 20 Invasive Line 1 20 Oral 240 Other: Voiding Method Toilet # Voids - Exam GENERAL EXAM: Alert, pleasant 69-year-old male, on 2 L nasal cannula, fairly comfortable in no apparent distress. HEAD: Normocephalic. EYES: Normal reaction of pupils, equal size. NOSE: Clear with pink turbinates. THROAT: No erythema or exudates. NECK: No masses, no JVD. CHEST: No chest wall deformity. LUNGS: Equal air entry with bilateral scattered rhonchi. CVS: S1 and S2 normal with no audible murmur, regular rhythm. ABDOMEN: No hepatosplenomegaly, normal bowel sounds, no guarding or rigidity. SPINE: No scoliosis or deformity SKIN: No rashes CENTRAL NERVOUS SYSTEM: No focal deficits, tone is normal in all 4 extremities. EXTREMITIES: There is no peripheral edema. No clubbing, no cyanosis. Rosalina pheral pulses are intact. - Labs CBC & Chem 7: 07/07/24 07:18 07/07/24 07:18 Labs: Abnormal Lab Results - Last 24 Hours (Table) 07/06/24 07/06/24 07/06/24 Range/Units 06:21 16:45 20:42 RBC (4.30-5.90) m/uL RDW (11.5-15.5) % Plt Count (150-450) k/uL Lymphocytes # (1.0-4.8) k/uL D-Dimer (<0.60) mg/L FEU Carbon Dioxide (22-30) mmol/L BUN (9-20) mg/dL Glucose (74-99) mg/dL POC Glucose (mg/dL) 111 H 216 H (70-110) mg/dL Ferritin 464.0 H (22.0-322.0) ng/mL 07/07/24 07/07/24 07/07/24 Range/Units 06:16 07:18 07:18 RBC 4.27 L (4.30-5.90) m/uL RDW 15.6 H (11.5-15.5) % Plt Count 124 L (150-450) k/uL Lymphocytes # 0.6 L (1.0-4.8) k/uL D-Dimer 1.26 H (<0.60) mg/L FEU Carbon Dioxide (22-30) mmol/L BUN (9-20) mg/dL Glucose (74-99) mg/dL POC Glucose (mg/dL) 168 H (70-110) mg/dL Ferritin (22.0-322.0) ng/mL 07/07/24 07/07/24 Range/Units 07:18 11:28 RBC (4.30-5.90) m/uL RDW (11.5-15.5) % Plt Count (150-450) k/uL Lymphocytes # (1.0-4.8) k/uL D-Dimer (<0.60) mg/L FEU Carbon Dioxide 32 H (22-30) mmol/L BUN 23 H (9-20) mg/dL Glucose 161 H (74-99) mg/dL POC Glucose (mg/dL) 156 H (70-110) mg/dL Ferritin 445.0 H (22.0-322.0) ng/mL Assessment and Plan Assessment: Chest pain in a patient with a known history of coronary artery disease, acute coronary syndrome ruled out Acute hypoxic respiratory failure secondary to RSV and COVID infections. CT angiogram ruled out pulmonary embolism Recent admission for an acute NSTEMI status post PCI to left main to ramus. Residual disease to RCA. The patient underwent further coronary intervention, PCI and multiple stenting of the RCA. Procedure was complicated by hypotension and bradycardia arrhythmias. History of atrial fibrillation, currently in sinus rhythm. Ischemic cardiomyopathy with EF 30 to 35% Multivessel CAD with previous CABG and redo CABG in 2017 Bilateral carotid artery stenosis status post endarterectomy, bilateral Peripheral artery disease status post femorofemoral bypass left to right COVID infection and pneumonia, completing a prednisone burst taper COPD exacerbation, stable and improving the patient is currently on a prednisone burst taper Hypertension Hyperlipidemia Chronic tobacco use and dependence, <1ppd Obesity Plan: The patient was seen and evaluated Labs and medications reviewed Continue Symbicort, albuterol, Solu-Medrol Lovenox for DVT prophylaxis Titrate down the FiO2 as tolerated Add a flutter valve DNR CODE STATUS We will continue to follow I have personally seen and examined the patient, performed the documentation and the assessment and plan as written. Number of minutes spent on the visit: 10 Dictation was produced using [employer] dictation software. Please excuse any grammatical, word or spelling errors.
[2024-07-07 16:34] LABS: Glucose,Whole Blood 196 mg/dL (70-110)
[2024-07-07 19:59] LABS: Glucose,Whole Blood 253 mg/dL (70-110)
[2024-07-07] MEDS: ALPRAZolam 0.25 MG TAB PO STA (22:16)
[2024-07-08 06:20] LABS: Glucose,Whole Blood 230 mg/dL (70-110)
[2024-07-08 06:59] LABS: Basophils % (A) 0 %; Eosinophils % (A) 0 %; HCT 42.6 % (39.0-53.0); HGB 13.3 gm/dL (13.0-17.5); Hypochromasia Slight; Lymphocytes # (A) 0.6 k/uL (1.0-4.8); Lymphocytes % (A) 8 %; MCH 29.6 pg (25.0-35.0); MCHC 31.2 g/dL (31.0-37.0); MCV 94.8 fL (80.0-100.0); Mean Platelet Volume 8.9; Monocytes # (A) 0.3 k/uL (0-1.0); Monocytes % (A) 3 %; Neutrophils # (A) 6.9 k/uL (1.3-7.7); Neutrophils % (A) 87 %; Platelet Count 140 k/uL (150-450); Poikilocytosis Slight; RDW 15.9 % (11.5-15.5); WBC 7.9 k/uL (3.8-10.6)
[2024-07-08 07:20] LABS: African American GFR (CKD) >90 (>60 ml/min/1.73 sqM); Anion Gap 8 mmol/L; Blood Urea Nitrogen 21 mg/dL (9-20); Calcium 8.8 mg/dL (8.4-10.2); Carbon Dioxide 32 mmol/L (22-30); Chloride 99 mmol/L (98-107); Glucose 215 mg/dL (74-99); Magnesium 2.1 mg/dL (1.6-2.3); Non-African American GFR(CKD) >90 (>60 ml/min/1.73 sqM); Potassium 4.2 mmol/L (3.5-5.1); Sodium 139 mmol/L (137-145)
[2024-07-08 09:28] VITALS: TEMP 97.9
[2024-07-08 11:39] VITALS: BP 158/78; PULSE 74; RESP 18
--- NOTE | 2024-07-08 12:17 | P.DS ---
Providers Date of admission: 07/04/24 15:05 Expected date of discharge: 07/08/24 Attending physician: Keon Mcknight Consults: 07/04/24 14:07 Consult Physician Routine Consulting Provider: Magdiel Porras Consult Reason/Comments: hypoxia Do you want consulting provider notified?: Yes Primary care physician: Izaiah Lockwoodcorey hospit[facility] Course: Acute hypoxemic respiratory failure RSV and COVID-19 pneumonia Acute COPD exacerbation CAD status post CABG/PCI Heart failure with reduced ejection fraction, EF 35% Hypertension Hyperlipidemia Gen: In NAD, non-toxic HEENT: normocephalic, atraumatic, hearing acuity is intant, mucous membranes moist CVS: perfusing all extremities well, no pitting edema, Respiratory: symmetric chest expansion, no accessory muscle use, diffuse whe ezing GI: soft, NTTP, ND, : no suprapubic tenderness, no CVA tenderness MSK/Derm: no rashes, cyanosis Neuro: CN II-XII intact, no motor weakness, Psych: cooperative, euthymic mood, judgment and insight is intact Hospital Course: 69-year-old male with medical history of CAD status post CABG and status post PCI to the RCA approximately 2 and half weeks ago when she had 5 stents for difficult procedure, hypertension, hyperlipidemia, former smoker who presented for evaluation of dyspnea, congestion. In the emergency room, patient was afebrile, 105/66, heart rate 81, 86% on room air. CBC was unremarkable. Basic metabolic panel is unremarkable. Liver function test show mildly elevated total bilirubin of 1.9. Influenza A, B were negative. RSV, COVID were positive. Initial troponin is 0.026 then trended to 0.017 after 3 hours. Coags were unremarkable. EKG shows sinus rhythm with right axis deviation, poor R wave progression, right bundle branch morphology. Chest x-ray showed no acute cardiopulmonary process, does show COPD changes, cardiomegaly with post CABG changes. Case was discussed with emergency room provider and decision was made admit the patient to the hospital for further evaluation of hypoxemic respiratory failure secondary to COVID and RSV pneumonia. Patient was monitored on cardiac selective unit. He was started on steroids, inhalers, seen in consultation with pulmonology. Patient progressed well and was able to be taken off the oxygen on the day of discharge. Patient was also noted to have episodes of hypotension while on his cardiac medication and therefore his Coreg was down titrated to 3.125 twice daily, his Imdur was down titrated from 60 mg daily to 15 mg daily. Patient was instructed to follow-up with PCP, pulmonology, cardiology on discharge. He was also provided a Holter monitor prior to discharge. I spent 40 minutes coordinating this discharge Patient Condition at Discharge: Good Plan - Discharge Summary Discharge Rx Participant: Yes New Discharge Prescriptions: New Aspirin 81 mg PO DAILY #30 tab Acetaminophen Tab [Tylenol] 650 mg PO Q4HR PRN tab PRN Reason: Fever>101 Albuterol Inhaler [Ventolin Hfa Inhaler] 2 puff INHALATION RT-QID PRN #1 each PRN Reason: Shortness Of Breath Or Wheezing carvediloL [Coreg] 3.125 mg PO BID-W/MEALS #60 tab predniSONE [Deltasone] See Rx Instructions .ROUTE .COMPLEX #15 tab Isosorbide Mononitrate ER [Imdur] 15 mg PO DAILY #30 tab Budesonide-Formot 160-4.5 Mcg [Symbicort 160-4.5 Mcg Inhaler] 2 puff INHALATION RT-BID #1 each Continue Rosuvastatin Calcium [Crestor] 40 mg PO DAILY Spironolactone [Aldactone] 25 mg PO DAILY #30 tab Nitroglycerin Sl Tabs [Nitrostat] 0.4 mg SUBLINGUAL Q5M PRN #30 tab PRN Reason: Chest Pain Ranolazine [Ranexa] 500 mg PO Q12HR #60 tab Sacubitril/Valsartan [Entresto 24 mg-26 mg Tablet] 1 tab PO BID Clopidogrel [Plavix] 75 mg PO DAILY Empagliflozin [Jardiance] 10 mg PO DAILY Fluticasone Nasal [place] [Flonase Nasal [place]] 1 spray EA NOSTRIL DAILY Discontinued Isosorbide Mononitrate ER [Imdur] 60 mg PO DAILY #60 tab carvediloL [Coreg] 12.5 mg PO BID Discharge Medication List Rosuvastatin Calcium [Crestor] 40 mg PO DAILY 03/28/20 [History] Nitroglycerin Sl Tabs [Nitrostat] 0.4 mg SUBLINGUAL Q5M PRN #30 tab 09/04/23 [Rx] Ranolazine [Ranexa] 500 mg PO Q12HR #60 tab 09/04/23 [Rx] Spironolactone [Aldactone] 25 mg PO DAILY #30 tab 09/04/23 [Rx] Empagliflozin [Jardiance] 10 mg PO DAILY 06/11/24 [History] Sacubitril/Valsartan [Entresto 24 mg-26 mg Tablet] 1 tab PO BID 06/11/24 [History] Clopidogrel [Plavix] 75 mg PO DAILY 07/04/24 [History] Fluticasone Nasal [place] [Flonase Nasal [place]] 1 spray EA NOSTRIL DAILY 07/04/24 [History] Acetaminophen Tab [Tylenol] 650 mg PO Q4HR PRN tab 07/08/24 [Rx] Albuterol Inhaler [Ventolin Hfa Inhaler] 2 puff INHALATION RT-QID PRN #1 each 07/08/24 [Rx] Aspirin 81 mg PO DAILY #30 tab 07/08/24 [Rx] Budesonide-Formot 160-4.5 Mcg [Symbicort 160-4.5 Mcg Inhaler] 2 puff INHALATION RT-BID #1 each 07/08/24 [Rx] Isosorbide Mononitrate ER [Imdur] 15 mg PO DAILY #30 tab 07/08/24 [Rx] carvediloL [Coreg] 3.125 mg PO BID-W/MEALS #60 tab 07/08/24 [Rx] predniSONE [Deltasone] See Rx Instructions .ROUTE .COMPLEX #15 tab 07/08/24 [Rx] Follow up Appointment(s)/Referral(s): Harsh Lagos MD [STAFF PHYSICIAN] - 1 Week (heart doctor. please call to schedule. ) Magdiel Porras DO [Doctor of Osteopathic Medicine] - 1 Week (lung doctor. please call to schedule. ) Izaiah Mera DO [Primary Care Provider] - 1-2 days Patient Instructions/Handouts: Respiratory Syncytial Virus (DC), Hypoxia (ED) Discharge Disposition: HOME SELF-CARE Plan of Treatment: He needs outpatient follow-up with cardiology as a close follow-up within 1 week. On discharge he needs evaluation for a AICD He needs to have a follow-up echocardiogram within 3 months from his last echo which was in June. If his EF does not improve he would be a good candidate for AICD
--- NOTE | 2024-07-08 16:36 | P.PN ---
Subjective Progress Note Date: 07/08/24 CAT scan on 07/08/2024, the patient is being seen for a follow-up. Patient is doing well. He is recovering from acute viral infection which included a acute RSV and COVID-19 infection. He is currently on room air oxygen. Denies any major difficulties. There was a close of 7.9 with a hemoglobin of 13 and a platelet count of 140. Electrolytes are all within normal limits with a BUN of 21 and a creatinine of 0.6. Ambulating. No nausea. No emesis. No chest pain. He is known to have cardiomyopathy and the patient is currently on a combination of Entresto and Jardiance. He is also on Aldactone. The patient has Symbicort maintenance at home and will be discharged home on a prednisone burst taper in addition to his routine medications. Oxygenation is also improved and the patient is currently on room air oxygen. Objective - Vital Signs Vital signs: Vital Signs Temp 97.9 F 07/08/24 11:39 Pulse 74 07/08/24 11:39 Resp 18 07/08/24 11:39 BP 158/78 07/08/24 11:39 Pulse Ox 91 L 07/08/24 11:39 FiO2 Intake & Output 07/07/24 07/08/24 07/08/24 18:59 06:59 18:59 Intake Total 500 250 128 Balance 500 250 128 Weight 89.2 kg Intake: IV 20 10 10 Invasive Line 1 20 10 10 Oral 480 240 118 Other: Voiding Method Toilet Toilet Toilet # Voids 2 2 - Exam The patient appeared well nourished and normally developed. Vital signs as documented. Head exam is unremarkable. No scleral icterus or corneal arcus noted. Neck is without jugular venous distension, thyromegaly, or carotid bruits. Carotid upstrokes are brisk bilaterally. Lungs are clear to auscultation and percussion. Cardiac exam reveals the PMI to be normally sized and situated. Rhythm is regular. First and second heart sounds normal. No murmurs, rubs or gallops. Abdominal exam reveals normal bowel sounds, no masses, no organomegaly and no aortic enlargement. Extremities are nonedematous and both femoral and pedal pulses are normal. Examination of the skin revealed no evidence of significant rashes, suspicious appearing nevi or other concerning lesions. Neurologically, the patient is awake and alert and the patient does not have any focal neurological deficit. Cranial nerves are essentially intact. - Labs CBC & Chem 7: 07/08/24 06:32 07/08/24 06:32 Labs: Abnormal Lab Results - Last 24 Hours (Table) 07/07/24 07/07/24 07/07/24 Range/Units 07:18 16:32 19:58 RDW (11.5-15.5) % Plt Count (150-450) k/uL Lymphocytes # (1.0-4.8) k/uL Carbon Dioxide (22-30) mmol/L BUN (9-20) mg/dL Creatinine (0.66-1.25) mg/dL Glucose (74-99) mg/dL POC Glucose (mg/dL) 196 H 253 H (70-110) mg/dL Ferritin 445.0 H (22.0-322.0) ng/mL 07/08/24 07/08/24 07/08/24 Range/Units 06:18 06:32 06:32 RDW 15.9 H (11.5-15.5) % Plt Count 140 L (150-450) k/uL Lymphocytes # 0.6 L (1.0-4.8) k/uL Carbon Dioxide 32 H (22-30) mmol/L BUN 21 H (9-20) mg/dL Creatinine 0.64 L (0.66-1.25) mg/dL Glucose 215 H (74-99) mg/dL POC Glucose (mg/dL) 230 H (70-110) mg/dL Ferritin (22.0-322.0) ng/mL Assessment and Plan Plan: Chest pain in a patient with a known history of coronary artery disease, acute coronary syndrome ruled out Acute hypoxic respiratory failure secondary to RSV and COVID infections. CT a ngiogram ruled out pulmonary embolism, and the patient is currently on room air oxygen Recent admission for an acute NSTEMI status post PCI to left main to ramus. Residual disease to RCA. The patient underwent further coronary intervention, PCI and multiple stenting of the RCA. Procedure was complicated by hypotension and bradycardia arrhythmias. History of atrial fibrillation, currently in sinus rhythm. Ischemic cardiomyopathy with EF 30 to 35% Multivessel CAD with previous CABG and redo CABG in 2017 Bilateral carotid artery stenosis status post endarterectomy, bilateral Peripheral artery disease status post femorofemoral bypass left to right COVID infection and pneumonia, completing a prednisone burst taper COPD exacerbation, stable and improving the patient is currently on a prednisone burst taper Hypertension Hyperlipidemia Chronic tobacco use and dependence, <1ppd Obesity Plan: Overall respiratory status is stable and the patient oxygenation is improved and the patient is currently on room air oxygen Continue Symbicort Prednisone burst taper at time of discharge Albuterol On As-Needed basis Resume cardiac medications Patient is to be discharged to be followed up on outpatient basis.
== END 2024-07-08 13:55 | disposition home or self-care (01) | DRG 177 ==
LOC: EC 12:21 → 3SCARD 15:05
PROVIDERS: ADMIT Student in an Organized Health Care Education/Training Program; ATTEND Student in an Organized Health Care Education/Training Program
DX: U07.1 COVID-19 (principal); J12.1 Respiratory syncytial virus pneumonia; J12.82 Pneumonia due to coronavirus disease 2019; J96.01 Acute respiratory failure with hypoxia; Z66 Do not resuscitate; J44.0 Chronic obstructive pulmonary disease with (acute) lower respiratory infection; I50.22 Chronic systolic (congestive) heart failure; J44.1 Chronic obstructive pulmonary disease with (acute) exacerbation; I11.0 Hypertensive heart disease with heart failure; F31.9 Bipolar disorder, unspecified; I73.9 Peripheral vascular disease, unspecified; E66.9 Obesity, unspecified; I48.91 Unspecified atrial fibrillation; I25.5 Ischemic cardiomyopathy; E78.5 Hyperlipidemia, unspecified; I95.9 Hypotension, unspecified; I25.10 Atherosclerotic heart disease of native coronary artery without angina pectoris; I25.2 Old myocardial infarction; I49.3 Ventricular premature depolarization; Z68.27 Body mass index [BMI] 27.0-27.9, adult; F41.9 Anxiety disorder, unspecified; Z79.02 Long term (current) use of antithrombotics/antiplatelets; Z79.84 Long term (current) use of oral hypoglycemic drugs; Z79.899 Other long term (current) drug therapy; Z95.5 Presence of coronary angioplasty implant and graft; Z95.1 Presence of aortocoronary bypass graft; Z86.73 Personal history of transient ischemic attack (TIA), and cerebral infarction without residual deficits; Z85.528 Personal history of other malignant neoplasm of kidney; Z87.891 Personal history of nicotine dependence; Z88.8 Allergy status to other drugs, medicaments and biological substances
CPT/HCPCS: 36415; 71046; 71275; 80048; 80053; 80061; 82728; 83615; 83735; 83880; 84145; 84484; 85025; 85379; 85384; 85610; 85730; 86140; 87636; 93005; 93225; 94640; 94667; 94668; 94760; 96372; 96374; 96376; 99285